=== PATIENT | male | born 1945 | race Caucasian/White ===

== ENCOUNTER → 2016-07-22 08:03 | Day surgery (SDC) | payer MEDICARE ==
--- NOTE | 2016-07-20 20:46 | HP ---
ADMITTING HISTORY AND PHYSICAL: DATE OF ADMISSION: 07/22/16 AGE: 70 years. SEX: Male. ADMITTING DIAGNOSES: 1. Bilateral hydronephrosis. 2. Advanced prostate cancer. PLANNED PROCEDURE: Bilateral retrograde, bilateral stent change. SURGEON: Isidro Cevallos MD ADMITTING HISTORY AND PHYSICAL: Landon Montilla is a 70-year-old gentleman with long - standing history of advanced prostate cancer. He had undergone radical prostatectomy in 2003 followed by radiation therapy in 2004 and has been on intermittent androgen deprivation therapy with Lupron for the last few years. His most recent serum PSA in May 2016 was 0.4. He also has bilateral hydronephrosis due to strictures secondary to radiation and has been managed with indwelling ureteral stents. PAST MEDICAL HISTORY: Significant for: 1. Diabetes. 2. Prostate cancer. 3. Atrial fibrillation. 4. Hypertension. MEDICATIONS ON ADMISSION: 1. Glipizide 5 mg q.a.m., 10 mg q.p.m. 2. Diltiazem 240 mg a day. 3. Losartan potassium 50 mg daily. 4. Atorvastatin 40 mg daily. 5. Humulin as directed. 6. Warfarin, currently on hold. 7. Omeprazole 20 mg daily. 8. Trazodone 50 mg daily. ALLERGIES AND INTOLERANCES: LISINOPRIL, ZESTORETIC, and INDAPAMIDE. SMOKING HISTORY: He has a lifelong smoking history, 40 to 45 pack years. PHYSICAL EXAMINATION GENERAL: Exam reveals a pleasant elderly gentleman. VITAL SIGNS: Blood pressure is 124/72, pulse 77 per minute, and oxygen saturation 97% on room air. LUNGS: Clear bilaterally. CARDIOVASCULAR: Regular rate and rhythm. S1, S2. ABDOMEN: Soft without masses. A Burgess catheter is in place draining clear urine. IMPRESSION: A 70-year-old gentleman with bilateral hydronephrosis. PLANNED PROCEDURE: Bilateral retrograde and bilateral stent change. CC: Amando Stein MD; Dr. Oliva* [id number]/[facility] #: [id number] [facility]
[~2016-07-22 08:03] MED LIST: Buffered Lidocaine 1% SYR 3ML* 3 ML/SYR SYRINGE INTRADERM ONE; Buffered Lidocaine 1% SYR 3ML* 3 ML/SYR SYRINGE ONE; Dexamethasone IV* 4 MG/ML 1 ML (4 MG) ONE; Famotidine TAB* 20 MG ONE; Famotidine TAB* 20 MG PO ONE; Gentamicin ADULT (*) 140 MG in NS 0.9% 100 ML* 100 ML IVPB ONE; HYDROmorphone INJ* 1 MG/ML CARPUJECT SYRINGE IV PRN; Iohexol 180 (CONTRAST) 10 ML SDV IV ONE; KETAMINE HCL* 50 MG/ML 10 ML VIAL ONE; Lidocaine 2% MPF* 2 ML VIAL ONE; Metoclopramide TAB* 10 MG ONE; Metoclopramide TAB* 10 MG PO ONE; Midazolam* 1 MG/ML 5 ML VIAL (5 MG) ONE; Ondansetron INJ* 2 MG/ML VIAL IV PRN; Ondansetron INJ* 2 MG/ML VIAL ONE; Propofol* 10 MG/ML 20 ML BTL IV PUSH ONE; Scopolamine 1.5 mg* PATCH ONE; Scopolamine 1.5 mg* PATCH TRANSDERM ONE; Scopolamine PATCH Remove* 1 NOTE MISC PATCH OFF ONE; cefTRIAXone(*) 2 GM ADDV.VIAL IVPB ONE; fentaNYL* 50 MCG/ML 2 ML VIAL (100 MCG VIAL) IV PRN; fentaNYL* 50 MCG/ML 2 ML VIAL (100 MCG VIAL) ONE; oxyCODONE/Acetamin 5/325 MG* TAB PO PRN
[2016-07-22 11:43] VITALS: BP 150/78
--- NOTE | 2016-07-22 11:59 | RAD ---
CPT II Codes: 6045F INDICATION: Bilateral ureteral stent exchanges. Fluoroscopic services provided for referring physician. 5 spot images demonstrates bilateral hydronephrosis with exchange of bilateral ureteral stents. IMPRESSION: Fluoroscopic services provided for referring physician for bilateral ureteral stent placement.
--- NOTE | 2016-07-22 20:39 | OP ---
DATE OF OPERATION: 07/22/16 - [facility] DATE OF : [birth year] - AGE: 70 years, male. SURGEON: Isidro Cevallos MD. ANESTHESIOLOGIST: Dr. Mcgowan. ANESTHESIA: General. PRE-OP DIAGNOSES: 1. Bilateral hydronephrosis. 2. Prostate cancer. POST-OP DIAGNOSES: 1. Bilateral hydronephrosis. 2. Prostate cancer. SURGICAL PROCEDURE: Cystoscopy, bilateral retrogrades, bilateral ureteral stent change. COMPLICATIONS: None. STENT USED: An 8.5-Fijian 28-cm silicone stent right and left ureter. OPERATIVE FINDINGS: 1. Strictures proximal urethra. 2. Bilateral hydronephrosis. POSTOPERATIVE CONDITION: Stable. INDICATIONS: Landon Montilla is a 70-year-old gentleman with advanced prostate cancer and bilateral hydronephrosis managed with indwelling ureteral stents. These were last changed in December 2015. DESCRIPTION OF PROCEDURE: After induction of general anesthesia, the patient was placed in dorsal lithotomy position. Sequential compression devices were in place and functioning. Initial cystoscopy revealed stricture in the proximal urethra. The patient is status post radical prostatectomy. The bladder was examined. The previously placed stents were removed. Left retrograde pyelogram revealed fullness of the left collecting system. A new 8.5-Fijian 28 cm silicone stent was positioned under fluoroscopic monitoring with good proximal and distal positioning obtained. Attention was directed to the right side. Once again after completion of the retrograde pyelogram, a new 8.5-Fijian 28 cm silicone stent was placed. A 20- Fijian Burgess was placed for bladder drainage. The patient tolerated the procedure satisfactorily and was transferred back to the recovery area in stable condition. [id number]/[facility] #: [id number] MTDD
== END | disposition home or self-care (01) ==
LOC: OR 08:03
PROVIDERS: ATTEND Urology
DX: N13.1 Hydronephrosis with ureteral stricture, not elsewhere classified (principal); C61 Malignant neoplasm of prostate; N13.9 Obstructive and reflux uropathy, unspecified; E11.8 Type 2 diabetes mellitus with unspecified complications; Z79.4 Long term (current) use of insulin; I48.91 Unspecified atrial fibrillation; Z79.01 Long term (current) use of anticoagulants; I10 Essential (primary) hypertension
CPT/HCPCS: 36415; 74420; 85610; A9270-GY; J0696; J1100; J1580; J2250; J2405; J2704; J3010

== ENCOUNTER 2016-09-29 09:45 | Emergency (ER) | payer MEDICARE ==
[2016-09-29] MEDS ORDERED: Morphine INJ* 4 MG/ML 1 ML SYRINGE IV ONE ×3 (10:38→15:26)
[2016-09-29] MEDS ORDERED: NS 0.9% 1000 ML* 1,000 ML IV ONE (10:38)
[2016-09-29 10:51] LABS: Hematocrit 24 % (42-52); Hemoglobin 7.5 g/dl (14.0-18.0); Mean Corpuscular HGB Conc 32 g/dl (31-36); Mean Corpuscular Hemoglobin 25 pg (27-31); Mean Corpuscular Volume 78 fL (80-94); Mean Platelet Volume 7 um3 (7.4-10.4); Red Blood Count 3.03 10^6/ul (4.0-5.4); Red Cell Distribution Width 17 % (10.5-15); White Blood Count 17.8 10^3/ul (3.5-10.8)
[2016-09-29 11:04] LABS: Albumin 3.1 g/dL (3.2-5.2); C Reactive Protein 150.64 mg/L (< 5.00); Calcium 8.7 mg/dL (8.6-10.3); EGFR African American 33.8 (>60); EGFR Non-African American 26.3 (>60); Globulin 4.7 g/dL (2-4); Potassium 4.2 mmol/L (3.5-5.0); Total Bilirubin 0.4 mg/dL (0.2-1.0); Total Protein 7.8 g/dL (6.4-8.9)
[2016-09-29 12:01] LABS: Erythrocyte Sed Rate 120 mm/Hr (0-40)
[2016-09-29 12:36] LABS: Urine Bacteria Absent (Absent); Urine Bilirubin Negative (Negative); Urine Glucose Negative (Negative); Urine Nitrite Negative (Negative)
[2016-09-29] MEDS ORDERED: Piperac/Tazob 3.375 gm in NS* 3.375 GM/100 ML BAG IVPB ONE (12:36)
[2016-09-29] MEDS ORDERED: Vancomycin(*) 1,000 MG in NS 0.9% 250 ML* 250 ML IVPB ONE (13:48)
--- NOTE | 2016-09-29 13:59 | RAD ---
INDICATION: Evaluate for inguinal hernia. Pain. COMPARISON: CT June 20, 2011 TECHNIQUE: Axial source images were acquired from the level hemidiaphragms to the symphysis pubis. The examination was performed following the administration of oral contrast only. Lung bases: The lung bases are clear. The heart is enlarged Liver: There is mild hepatomegaly. There is no massive noncontrast evaluation. Gallbladder: There are no calcified gallstones. There is no evidence of wall thickening or pericholecystic fluid.. Spleen: The spleen is normal in size. The noncontrast CT appearance is normal. Pancreas: Noncontrast imaging shows no pancreatic mass or ductal dilitation. Adrenal glands: No masses are identified. Kidneys/Bladder: No evidence of nephrolithiasis. Small right renal cysts. Atrophic left kidney. Bilateral renal stents. No hydronephrosis. The bladder is decompressed with a Burgess catheter. There are perivesical abnormalities and to see below) Adenopathy: There is no evidence of intraperitoneal or retroperitoneal adenopathy. Evaluation is limited without oral contrast. Fluid collections: There are no free or localized fluid collections. Vessels: The aorta and iliac vessels are normal in caliber. There are no significant atherosclerotic changes. The IVC appears normal Pelvic organs: There is prostatectomy. There are multiple surgical clips. GI tract: Evaluation of the bowel is limited without oral contrast. The stomach, small bowel, and lower GI tract appear grossly normal. There are no obstructive findings. The appendix is visualized and appears normal. Soft tissues: There is expansion of the right rectus muscle near the insertion on the symphysis and there are punctate foci of air. There is mild stranding of the subcutaneous fat as well. This rectus abnormality is contiguous with abnormal soft tissue in the anterior pelvic peritoneal cavity at the level of the symphysis. This extends posteriorly to the decompressed urinary bladder. There are multiple tiny foci of air within this soft tissue density. This is likely infectious or inflammatory. It is possible there is a rent in the anterior bladder wall. There are fat-containing inguinal hernias bilaterally. Osseous structures: There are no acute osseous findings. There is multilevel spondylitic change. IMPRESSION: CONTIGUOUS ABNORMAL SOFT TISSUE DENSITY WITH PUNCTATE FOCI OF AIR INVOLVING THE RIGHT RECTUS MUSCLE AT ITS INSERTION ON THE SYMPHYSIS PUBIS. THE ABNORMAL SOFT TISSUE DENSITY WITH ADDITIONAL PUNCTATE FOCI OF AIR EXTENDS POSTERIORLY INTO THE PELVIC PERITONEAL CAVITY AND IS CONTIGUOUS WITH THE BLADDER. THE FINDINGS ARE LIKELY INFECTIOUS/INFLAMMATORY AND MAY INVOLVE A DEFECT IN THE BLADDER ITSELF. THERE MAY BE OSTEITIS OF THE SYMPHYSIS PUBIS AND/OR AN ABSCESS OF THE RECTUS MUSCULATURE.
[2016-09-29] MEDS: NS 0.9% 1000 ML* 2,500 ML IV ONE ×3 (15:43→18:11)
[2016-09-29] MEDS ORDERED: Acetaminop/Codeine 30 MG TAB* 1 TAB (300 MG/30 MG) PO PRN ×2 (17:09→17:13)
[2016-09-29] MEDS ORDERED: traZODone TAB* 50 MG TAB PO PRN (17:09)
[2016-09-29] MEDS ORDERED: PROCHLORPERAZINE INJ 5 MG/ML 2 ML VIAL IV PRN (17:16)
[2016-09-29] MEDS ORDERED: Morphine INJ* 4 MG/ML 1 ML SYRINGE IV PRN (17:16)
[2016-09-29] MEDS ORDERED: NS 0.9% 1000 ML* 1,000 ML IV SCH (17:30)
[2016-09-29] MEDS ORDERED: Phytonadione Oral Solution* 5 MG/25 ML UDC PO ONE (17:46)
[2016-09-29] MEDS ORDERED: Vancomycin(*) 1,000 MG in NS 0.9% 250 ML* 250 ML IVPB SCH ×4 (18:00)
[2016-09-29] MEDS ORDERED: Vancomycin per Pharmacy* NOTE FOLLOW UP PRN (19:21)
[2016-09-29] MEDS ORDERED: Piperac/Tazob 3.375 gm in NS* 3.375 GM/100 ML BAG IVPB SCH (20:00)
--- NOTE | 2016-09-29 20:10 | ED ---
Queenie Fagan Salem, scribed for Serafin Rai MD on 09/29/16 at 1041 . Abdominal Pain/Male - HPI Summary HPI Summary: Patient is a 70 y/o male who presents to the ED with 05/12 inguinal pain. His states that he was referred to the ED by Dr. Cevallos earlier today. He states he recently fell and 3 days after the fall he began to experience groin pain. He reports uncontrollable diarrhea unchanged from baseline. Pt denies CP or SOB, bur reports pain is aggravated with movement. - History of Current Complaint Chief Complaint: EDAbdPain Stated Complaint: GROIN PAIN Time Seen by Provider: 09/29/16 10:07 Hx Obtained From: Patient, Family/Circulation Clerk - . Onset/Duration: Gradual Onset, Still Present Timing: Constant Severity Initially: Moderate Severity Currently: Moderate Pain Intensity: 8 Pain Scale Used: 0-10 Numeric Location: Other - Inguinal. Aggravating Factor(s): Movement Alleviating Factor(s): Position Associated Signs And Symptoms: Positive: Diarrhea - unchanged from baseline. - Allergies/Home Medications Allergies/Adverse Reactions: Allergies Allergy/AdvReac Type Severity Reaction Status Date / Time No Known Allergies Allergy Verified 07/22/16 08:23 Home Medications: Home Medications Acetaminop/Codeine 30 MG TAB* [Tylenol/Codeine 30 MG TAB*] 1 - 2 tab PO Q6H PRN MDD 8 tabs 09/29/16 [History Confirmed 09/29/16] Atorvastatin* [Lipitor*] 40 mg PO DAILY 09/29/16 [History Confirmed 09/29/16] Chlorthalidone 25 mg PO DAILY 09/29/16 [History Confirmed 09/29/16] Cholecalciferol [Vitamin D] 2,000 unit PO DAILY 09/29/16 [History Confirmed ] Diltiazem CD CAP* [Cardizem CD CAP*] 240 mg PO DAILY 09/29/16 [History Confirmed 09/29/16] Insulin Lispro [Humalog Kwikpen] 14 unit SUBCUT BEDTIME 09/29/16 [History Confirmed 09/29/16] Warfarin TAB(*) [Coumadin TAB(*)] 5 mg PO MOWEFR 09/29/16 [History Confirmed ] Warfarin TAB(*) [Coumadin TAB(*)] 7.5 mg PO SUTUTHSA 09/29/16 [History Confirmed 09/29/16] traZODone TAB* [Desyrel TAB*] 50 mg PO BEDTIME PRN 09/29/16 [History Confirmed 09/29/16] PMH/Surg Hx/FS Hx/Imm Hx Endocrine/Hematology History: Reports: Hx Diabetes - IDDM, Hx Anemia - HX OF Denies: Hx Anticoagulant Therapy, Hx Sickle Cell Disease Cardiovascular History: Reports: Hx Hypertension - DAILY MEDS, Other Cardiovascular Problems/Disorders - HX OF A-FIB Denies: Hx Pacemaker/ICD Respiratory History: Denies: Hx Sleep Apnea, Other Respiratory Problems/Disorders GI History: Reports: Hx Gastroesophageal Reflux Disease Denies: Hx Jaundice, Other GI Disorders History: Reports: Hx Kidney Infection, Hx Kidney Stones, Hx Renal Disease, Other Problems/Disorders - INDWELLING CATHETER, STENT RIGHT & LEFT URETER, HX OF PROSTATE CANCER Musculoskeletal History: Reports: Hx Arthritis - GENERAL Denies: Other Musculoskeletal History Sensory History: Reports: Hx Cataracts - HX OF, Hx Contacts or Glasses - GLASSES Denies: Hx Hearing Aid Opthamlomology History: Reports: Hx Cataracts - HX OF, Hx Contacts or Glasses - GLASSES Neurological History: Denies: Other Neuro Impairments/Disorders Psychiatric History: Reports: Hx Depression Denies: Hx Panic Disorder - Cancer History Cancer Type, Location and Year: COLON CANCER 2008 Hx Chemotherapy: No - Surgical History Surgery Procedure, Year, and Place: [id number] MULTIPLE BILATERAL RETROGRADE WITH CATHETER AND BILATERL URETERAL STENT EXCHANGES, BALLOON DILATION, [facility] [place]. 2013 BILATERAL CATARACT EXTRACTION WITH IOL IMPLANTS, [facility] [place]. 2012 C7-T1 ACDF AND PLATING, [facility] [place]. 2016 DECOMPRESSION LAMINECTOMY L3-4, 4-5, [facility] [place] Hx Anesthesia Reactions: Yes - NAUSEA AND VOMITING - NEEDS PATCH Infectious Disease History: No Infectious Disease History: Denies: Traveled Outside the [place] in Last 30 Days - Family History Known Family History: Positive: Diabetes - Mother. - Social History Alcohol Use: None Substance Use Type: Reports: None Smoking Status (MU): Former Smoker Type: Cigarettes Amount Used/How Often: 3 PACKS A DAY Have You Smoked in the Last Year: No Review of Systems Negative: Fever, Chills Negative: Erythema Negative: Sore Throat Negative: Chest Pain Negative: Shortness Of Breath, Cough Positive: Diarrhea - unchanged from baseline. . Negative: Abdominal Pain, Nausea Positive: other - Inguinal pain. . Negative: dysuria, hematuria Negative: Rash Neurological: Other - No dizziness. All Other Systems Reviewed And Are Negative: Yes Physical Exam - Summary Physical Exam Summary: Constitutional: Well-developed, Well-nourished, Alert. (-) Distressed Skin: Warm, Dry HENT: Normocephalic; Atraumatic Eyes: Conjunctiva normal Neck: Musculoskeletal ROM normal neck. (-) JVD, (-) Stridor, (-) Tracheal deviation Cardio: Rhythm regular, rate normal, Heart sounds normal; Intact distal pulses; The pedal pulses are 2+ and symmetric. Radial pulses are 2+ and symmetric. (-) Murmur Pulmonary/Chest wall: Effort normal. (-) Respiratory distress, (-) Wheezes, (-) Rales Abd: Soft, (-) Distension, (-) Guarding, (-) Rebound. Right inguinal tenderness. No testicular tenderness. No palpable hernia. Pain in groin with passive range of motion of right hip. No hip tenderness. Musculoskeletal: (-) Edema Lymph: (-) Cervical adenopathy Neuro: Alert, Oriented x3 Psych: Mood and affect Normal Triage Information Reviewed: Yes Vital Signs On Initial Exam: Initial Vitals Temp Pulse Resp BP Pulse Ox 97.1 F 72 18 154/64 100 09/29/16 09:46 09/29/16 09:46 09/29/16 09:46 09/29/16 09:46 09/29/16 09:46 Vital Signs Reviewed: Yes Diagnostics - Vital Signs Vital Signs Temp Pulse Resp BP Pulse Ox 09/29/16 10:31 72 18 139/64 96 09/29/16 09:46 97.1 F 72 18 154/64 100 - Laboratory Result Diagrams: 09/29/16 10:30 09/29/16 10:30 Lab Statement: Any lab studies that have been ordered have been reviewed, and results considered in the medical decision making process. - CT ABD/PELVIS CT Interpretation Completed By: Radiologist - IMPRESSION: CONTIGUOUS ABNORMAL SOFT TISSUE DENSITY WITH PUNCTATE FOCI OF AIR INVOLVING THE RIGHT RECTUS MUSCLE AT ITS INSERTION ON THE SYMPHYSIS PUBIS. THE ABNORMAL SOFT TISSUE DENSITY WITH ADDITIONAL PUNCTATE FOCI OF AIR EXTENDS POSTERIORLY INTO THE PELVIC PERITONEAL CAVITY AND IS CONTIGUOUS WITH THE BLADDER. THE FINDINGS ARE LIKELY INFECTIOUS/ INFLAMMATORY AND MAY INVOLVE A DEFECT IN THE BLADDER ITSELF. THERE MAY BE OSTEITIS OF THE SYMPHYSIS PUBIS AND/OR AN ABSCESS OF THE RECTUS MUSCULATURE. Re-Evaluation - Re-Evaluation First Eval Re-Evaluation Time: 13:28 Comment: Pain is well controlled. Second Eval Re-Evaluation Time: 14:46 Comment: Unchanged. Updated family. Abdominal Pain Fem Course/Dx - Course Course Of Treatment: Pt c/o inguinal pain. He was given IV fluids and Vancomycin in the ED. CT ordered, and reviewed as read by radiologist. Consulted urology, surgery, and pt's PCP. Requested that Dr. Mcelroy evaluates pt. He has agreed to do so if hospitalist requests it. Discussed with Dr. Nathan at [facility]. He will accept the pt. - Diagnoses Provider Diagnoses: Sepsis, Osteomyelitis, Pelvic abscess - Provider Notifications Discussed Care Of Patient With: Dr. Cevallos (Urologist) @ 1439. He recommended surgical and interventionalist radiology consultation. Dr. Mcelroy (Surgery) @ 1402. He believes no surgery is necessary. He is available for consultation from hospitalist as needed. Dr. Stein (pts PCP) @ 1520. He requested hospitalist do the admission. Also, mentioned pt had osteomyelitis in the past. Dr. Bronson (Hospitalist) @ 1545. Will admit. She understands Dr. Mcelroy will evualate pt upon request. Dr. Cevallos called @ 1628 to check on the pt. Dr. Nathan (hospitalist at [facility]) @ 1740. Discussed pts imaging, vital signs, and assessment. Will accept transfer. Reason For Transfer: Specialty or service not available at [facility] [place]. - Interventional radiology. - Critical Care Time Critical Care Time: 75-104 min - 90 minutes. Discharge - Discharge Plan Condition: Stable Disposition: TRANS HIGHER L OF CARE FAC Sepsis Re-assessment - Sepsis Re-Assessment First Eval Re-Evaluation Time: 14:46 - Pt is stable. Patient's Vitals Signs: Vital Signs Temp Pulse Resp BP Pulse Ox 09/29/16 15:43 18 09/29/16 15:00 66 156/61 96 09/29/16 14:00 64 143/56 94 09/29/16 13:18 61 141/56 97 09/29/16 13:16 20 09/29/16 13:00 65 136/57 96 09/29/16 12:30 65 139/61 96 09/29/16 12:00 62 137/59 95 09/29/16 11:30 61 144/59 96 09/29/16 11:00 65 143/59 96 09/29/16 10:49 66 96 09/29/16 10:48 18 149/59 09/29/16 10:31 72 18 139/64 96 09/29/16 09:46 97.1 F 72 18 154/64 100 Second Eval Patient's Vitals Signs: Vital Signs Temp Pulse Resp BP Pulse Ox 09/29/16 15:43 18 09/29/16 15:00 66 156/61 96 09/29/16 14:00 64 143/56 94 09/29/16 13:18 61 141/56 97 09/29/16 13:16 20 09/29/16 13:00 65 136/57 96 09/29/16 12:30 65 139/61 96 09/29/16 12:00 62 137/59 95 09/29/16 11:30 61 144/59 96 09/29/16 11:00 65 143/59 96 09/29/16 10:49 66 96 09/29/16 10:48 18 149/59 09/29/16 10:31 72 18 139/64 96 09/29/16 09:46 97.1 F 72 18 154/64 100 The documentation as recorded by the Queenie de la fuente Salem accurately reflects the service I personally performed and the decisions made by Fredi gunderson Jerry, MD.
[2016-09-29 20:21] VITALS: BP 164/64
--- NOTE | 2016-09-29 21:38 | CONS ---
CONSULTATION REPORT: DATE OF CONSULT: 09/29/16 - EMERGENCY DEPT TIME OF EVALUATION: 5 p.m. PRIMARY CARE PROVIDER: Dr. Amando Stein. UROLOGIST: Dr. Cevallos. CHIEF COMPLAINT: Right groin pain. HISTORY OF PRESENT ILLNESS: Mr. Montilla is a 70-year-old male with a past medical history of type 2 diabetes; prostate CA; atrial fibrillation, on Coumadin; hypertension; CKD, stage 3; hyperlipidemia; nephrolithiasis; status post bilateral ureteral stents in July 2016; L3-L5 laminectomy in May 2016, who was referred to the emergency room with right groin pain. His history goes back to 3 weeks ago when he slipped and fell the last 2 stairs when he was going down. He says that he started to have right groin pain and he saw Dr. Stein as an outpatient, had an x-ray as an outpatient that the patient states was negative, but the pain continued and progressed to the point that he was having difficulty walking. He also complains of chills, but denies fevers. He saw Dr. Cevallos as an outpatient today to have his chronic Burgess catheter changed and Dr. Cevallos was concerned with his presentation and referred him to the emergency room for further evaluation. PAST MEDICAL HISTORY: 1. Type 2 diabetes. 2. Prostate CA. 3. Atrial fibrillation, on anticoagulation with warfarin. 4. Hypertension. 5. CKD, stage 3. 6. Hyperlipidemia. 7. Nephrolithiasis. 8. Bilateral ureteral stents in July 2016. 9. Status post L3-L5 laminectomy in May 2016. MEDICATION LIST: 1. Acetaminophen/codeine mg 1 to 2 tablets p.o. q.6 hours p.r.n. pain, MDD 8 tablets. 2. Vitamin C 500 mg p.o. daily. 3. Atorvastatin 40 mg p.o. daily. 4. Chlorthalidone 25 mg p.o. daily. 5. Cholecalciferol 2000 units p.o. daily. 6. Diltiazem CD 240 mg p.o. daily. 7. Glipizide 10 mg p.o. b.i.d. 8. Lispro 14 units subcutaneously at bedtime. 9. Omeprazole 20 mg p.o. daily. 10. Trazodone 50 mg p.o. at bedtime as needed for insomnia. 11. Warfarin 5 mg on Mondays, Wednesdays, and Fridays; 7.5 mg on Sundays, Tuesdays, , and Saturdays. ALLERGIES: No known drug allergies. FAMILY HISTORY: Significant for history of diabetes. SOCIAL HISTORY: The patient was a smoker, 3 packs per day for 10 years and he quit 25 years ago. No history of alcohol or drug use. Surrogate decision maker is his , Talita Montilla, phone number is [phone]. REVIEW OF SYSTEMS: A 14-point review of systems was performed and all the pertinent positive and negative findings are in the HPI. PHYSICAL EXAM: Vital Signs: Temperature 97.1, heart rate is 67, respiratory rate is 18, oxygen saturation ____ on 2 L nasal cannula, blood pressure is 153/ 62. General: The patient is an elderly male, lying in the ER stretcher, in no acute distress. HEENT: Pupils are equal. Moist mucous membranes, but they are pale. CVS: Normal S1, S2. Regular rate and rhythm. Chest: Breath sounds present bilaterally with no added sounds. Abdomen is obese, soft, nontender, nondistended. Bowel sounds are present. He has tenderness on palpation of his right inguinal area extending to the suprapubic area. There is no erythema, no fluctuance, no crepitation, but the area is very tender to palpation. He has no pain on palpation of his inner thigh and also extending to his perineum or genitals. Extremities: No edema. Neuro: He is alert and oriented x3. Able to move all 4 extremities. DIAGNOSTIC STUDIES/LAB DATA: The patient had a CBC that showed a WBC of 17.8, hemoglobin of 7.5, hematocrit of 24, platelets of 629 with 90% neutrophils, ESR is 120. INR was 6.8. Chemistry showed a sodium of 131, potassium 4.2, chloride of 96, bicarb of 23, BUN of 56, creatinine of 2.4, glucose of 322, lactic acid of 1.2, calcium 8.7. LFTs are normal. Alk phos is 114. CRP is 150. Urinalysis showed 2+ blood, 3+ LE, 3+ wbc's. CT of the abdomen and pelvis without contrast showed a contiguous abnormal soft tissue density with punctate foci of air involving the right rectus muscle at its insertion on the symphysis pubis. The abnormal soft tissue density with additional punctate foci of air extends posteriorly into the pelvic peritoneal cavity and is contiguous with the bladder. The findings are likely infectious/ inflammatory and may involve a defect in the bladder itself. There may be osteitis of the symphysis pubis and/or an abscess of the rectus musculature. ASSESSMENT AND PLAN: Mr. Montilla is a 70-year-old male with a past medical history of type 2 diabetes; prostate carcinoma; atrial fibrillation; hypertension; chronic kidney disease, stage 3; hyperlipidemia; nephrolithiasis, who presents to the emergency room with complaints of right groin pain after sustaining a fall 3 weeks ago, found to have a fluid collection in the pelvic area of unclear etiology at this time. 1. Sepsis: The patient has leukocytosis and although he does not meet the sepsis criteria at this time, I do suspect he is infected and I believe the source is the pelvic abscess. 2. Pelvic abscess: Etiology is unclear. I believe he may have started with a hematoma when he sustained a fall 3 weeks ago as his hemoglobin has dropped from 9.4 in May to 7.5 today. This may have progressed with an infection and may now be an abscess, but it is unclear if this has any communication with the bladder or any other intra-abdominal process. Due to his renal function, the patient cannot have a contrasted study. The initial idea was to have the patient admitted to the intensive care unit, reverse his INR, and then have Interventional Radiology put a catheter to drain this collection tomorrow, but after discussing the case with his primary care provider, Dr. Stein, and with his urologist, Dr. Cevallos, decision was made to transfer the patient [facility] to a facility with interventional radiology capacity overnight. Dr. Cevallos knows the patient for more than 15 years and he is very concerned about his condition. This is my first interaction with the patient and to me, he appears to be stable , but I do respect Dr. Cevallos's opinion especially because he has known the patient for a long time and he feels that this procedure could not wait until morning. The emergency room provider (Dr. Rai) will arrange the transfer to [facility]. In the meantime, the patient should receive IV fluids , and vancomycin and Zosyn are already ordered. 3. Supratherapeutic INR: The patient's warfarin is on hold and when he is transferred, he should receive FFP. I am not going to order it now as this can cause fluid overload and I am not sure of what kind of procedure and timing of procedure he will have when transferred. So, I will defer the FFP infusion to the accepting service, but he will receive 1 dose of vitamin K 5 mg before he is discharged. 4. Anemia: Suspect this is acute blood loss anemia secondary to a trauma. I had ordered 1 unit of PRBC to be transfused, but this may not be possible and it can be pursued in the accepting facility as his heart rate and blood pressure are stable at this time. 5. Thrombocytosis: Suspect this is associated with his inflammatory process, especially considering that his ESR is 120 and his CRP is 150. TIME SPENT: Approximately 65 minutes was spent with the patient and family interview, medical records review, physical examination to complete this admission, more than half this time was spent [id number] with the patient in coordination of care. [id number]/[facility]PS #: [id number]
[2016-09-30] MEDS ORDERED: Atorvastatin* 40 MG TAB PO SCH (09:00)
[2016-09-30] MEDS ORDERED: Cholecalciferol TAB* 1000 UNITS PO SCH (09:00)
[2016-09-30] MEDS ORDERED: Omeprazole CAP* 20 MG PO SCH (09:00)
[2016-09-30] MEDS ORDERED: Ascorbic Acid TAB* 500 MG PO SCH (09:00)
[2016-09-30] MEDS ORDERED: Diltiazem CD CAP* 240 MG PO SCH (09:00)
== END 2016-09-29 20:23 | disposition short-term general hospital (02) ==
LOC: ED 09:45
DX: A41.9 Sepsis, unspecified organism (principal); M86.9 Osteomyelitis, unspecified; R10.2 Pelvic and perineal pain; R19.7 Diarrhea, unspecified; Z87.891 Personal history of nicotine dependence
CPT/HCPCS: 36415; 74176; 80053; 81003; 81015; 83605; 83690; 85025; 85610; 85652; 86140; 86850; 86900; 86901; 86922; 86927; 87086; 96374; 96376; 99285; J2270; J2543; J3370; P9016; P9017

== ENCOUNTER 2016-11-11 06:11 | Day surgery (SDC) | payer MEDICARE ==
--- NOTE | 2016-11-08 23:36 | HP ---
ADMITTING HISTORY AND PHYSICAL: DATE OF ADMISSION: 11/11/16 AGE: 70 years, male. ADMITTING DIAGNOSES: 1. Advanced prostate cancer. 2. Bilateral hydronephrosis. PLANNED PROCEDURE: Cystoscopy, bilateral retrogrades, bilateral ureteral stent change. SURGEON: Isidro Cevallos MD ADMITTING HISTORY AND PHYSICAL: Landon Montilla is a 70-year-old gentleman with multiple medical issues and a fairly complex urologic history consisting of advanced prostate cancer and bilateral hydronephrosis. He has been managed with indwelling stents, which were last changed in July of 2016 and he is now being brought in for bilateral stent change. PAST MEDICAL HISTORY: Significant for: 1. Type 2 diabetes. 2. Atrial fibrillation, on anticoagulation. 3. Prostate cancer. 4. Hypertension. 5. Hyperlipidemia. 6. Chronic renal insufficiency. 7. Status post L3, L4, L5 laminectomy in May of 2016. MEDICATIONS ON ADMISSION: 1. Atorvastatin 40 mg daily. 2. Humulin as directed. 3. Glipizide 10 mg daily. 4. Omeprazole 20 mg daily. 5. Cartia XT 240 mg daily. 6. Warfarin 5 mg daily. 7. Chlorthalidone 25 mg daily. 8. Trazodone 50 mg daily. ALLERGIES: No known drug allergies. PHYSICAL EXAMINATION GENERAL: Reveals a pleasant elderly gentleman, who is in some discomfort after a recent fall secondary to some soft tissue bruising in the area of the left hip. VITAL SIGNS: Blood pressure is 138/62, pulse 85 per minute, oxygen saturation 99% on room air. LUNGS: Clear bilaterally. CARDIOVASCULAR: S1, S2. No murmurs. ABDOMEN: Soft. He recently had a drain placed for an infection involving the area around the rectus muscle. There was initially some concern that this was communicating with the bladder, but there has been no evidence of fistula either on a cystogram or on cystoscopy. The collection was drained and the drain was subsequently removed. IMPRESSION: A 70-year-old gentleman with a fairly complex medical and urologic history, who is being brought in for bilateral ureteral stent change. CC: Dr. Amando Stein * [id number]/[facility] #: [id number] MTDD
[~2016-11-11 06:11] MED LIST changes: -Buffered Lidocaine 1% SYR 3ML* 3 ML/SYR SYRINGE ONE; -Dexamethasone IV* 4 MG/ML 1 ML (4 MG) ONE; +Famotidine IV* 10 MG/ML 2 ML (20 mg) IV SLOW PU ONE; +Famotidine IV* 10 MG/ML 2 ML (20 mg) ONE; -Famotidine TAB* 20 MG ONE; -Famotidine TAB* 20 MG PO ONE; -Gentamicin ADULT (*) 140 MG in NS 0.9% 100 ML* 100 ML IVPB ONE; -HYDROmorphone INJ* 1 MG/ML CARPUJECT SYRINGE IV PRN; -Iohexol 180 (CONTRAST) 10 ML SDV IV ONE; -KETAMINE HCL* 50 MG/ML 10 ML VIAL ONE; -Lidocaine 2% MPF* 2 ML VIAL ONE; -Metoclopramide TAB* 10 MG ONE; -Metoclopramide TAB* 10 MG PO ONE; -Midazolam* 1 MG/ML 5 ML VIAL (5 MG) ONE; -Ondansetron INJ* 2 MG/ML VIAL IV PRN; -Ondansetron INJ* 2 MG/ML VIAL ONE; -Propofol* 10 MG/ML 20 ML BTL IV PUSH ONE; -Scopolamine 1.5 mg* PATCH ONE; -Scopolamine 1.5 mg* PATCH TRANSDERM ONE; -Scopolamine PATCH Remove* 1 NOTE MISC PATCH OFF ONE; -fentaNYL* 50 MCG/ML 2 ML VIAL (100 MCG VIAL) IV PRN; -fentaNYL* 50 MCG/ML 2 ML VIAL (100 MCG VIAL) ONE; -oxyCODONE/Acetamin 5/325 MG* TAB PO PRN
[2016-11-11] MEDS ORDERED: Iohexol 180 (CONTRAST) 10 ML SDV IV ONE (07:24)
[2016-11-11] MEDS ORDERED: Midazolam* 1 MG/ML 5 ML VIAL (5 MG) ONE (07:26)
[2016-11-11] MEDS ORDERED: fentaNYL* 50 MCG/ML 2 ML VIAL (100 MCG VIAL) ONE (07:26)
[2016-11-11] MEDS ORDERED: Ondansetron INJ* 2 MG/ML VIAL ONE (07:27)
[2016-11-11] MEDS ORDERED: Lidocaine 2% PF * 5 ML VIAL ONE (07:27)
[2016-11-11] MEDS ORDERED: Ketorolac INJ* 30 MG/ML 1 ML VIAL ONE (07:27)
[2016-11-11] MEDS ORDERED: Propofol* 10 MG/ML 20 ML BTL IV PUSH ONE (07:27)
[2016-11-11] MEDS ORDERED: Dexamethasone IV* 4 MG/ML 1 ML (4 MG) ONE (07:27)
[2016-11-11] MEDS ORDERED: oxyCODONE TAB* 5 MG TAB PO PRN (07:41)
[2016-11-11] MEDS ORDERED: HYDROmorphone* 1 MG/ML 1 ML SYR IV PRN (07:41)
[2016-11-11] MEDS ORDERED: DiMENhydriNATE IV* 50 MG/ML VIAL IV PUSH PRN (07:41)
[2016-11-11] MEDS ORDERED: Acetaminophen TAB* 325 MG PO PRN (07:41)
[2016-11-11] MEDS ORDERED: Scopolamine 1.5 mg* PATCH ONE (07:44)
[2016-11-11] MEDS ORDERED: Scopolamine 1.5 mg* PATCH TRANSDERM SCH (08:00)
[2016-11-11] MEDS ORDERED: Furosemide IV* 10 MG/ML 2 ML VIAL (20 MG) ONE (08:35)
--- NOTE | 2016-11-11 09:11 | RAD ---
INDICATION: Bilateral retrograde ureteral stent exchange. COMPARISON: Correlation is made with prior CT of the abdomen and pelvis from September 29, 2016. TECHNIQUE: 13 seconds of intermittent fluoroscopic guidance were provided and 10 spot films of the abdomen were obtained. FINDINGS: There is partial opacification of both collecting systems which appear distended. Subsequently there is placement of bilateral double-J stent catheters which demonstrate normal course. IMPRESSION: INTRAOPERATIVE CONTROL FILMS. CPT II Codes: 6045F
[2016-11-11 09:21] VITALS: BP 126/70
[2016-11-11] MEDS ORDERED: Levofloxacin TAB* 500 MG PO ONE (10:00)
--- NOTE | 2016-11-11 15:01 | OP ---
DATE OF OPERATION: 11/11/16 [facility] DATE OF : 43 SURGEON: Isidro Cevallos MD ANESTHESIOLOGIST: Dr. Alvarado. ANESTHESIA: General. PRE-OP DIAGNOSES: 1. Prostate cancer. 2. Bilateral hydronephrosis (secondary to ureteral stricture, status post radiation). 3. Urinary retention. POST-OP DIAGNOSES: 1. Prostate cancer. 2. Bilateral hydronephrosis (secondary to ureteral stricture, status post radiation). 3. Urinary retention. 4. 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 OPERATIVE PROCEDURE: Cystoscopy, bilateral retrograde, and bilateral ureteral stent change. INDICATIONS: Landon Montilla is a 70-year-old gentleman with a history of advanced prostate cancer and bilateral hydronephrosis secondary to ureteral strictures. In addition, he has a chronic indwelling Burgess catheter. COMPLICATIONS: None. STENT USED: 8.5-Samoan 28-cm silicone stent, right and left ureter. DESCRIPTION OF PROCEDURE: After induction of general anesthesia, the patient was placed in dorsal lithotomy position. Sequential compression devices were in place and functioning. The previously placed Burgess had been removed. Initial cystoscopy revealed a fairly rigid lead pipe urethra with very poor compliance, which made visualization of the bladder somewhat difficult. The stents were seen exiting from the right and left ureteral orifices. Initial visualization was really poor due to some cloudy urine in the bladder. The left stent was removed intact without difficulty. The right stent was removed and broke into 2 pieces. Using a flexible grasping forceps, the second part of the stent was successfully removed and then the entire stent was visualized and it appeared that all the components had been successfully removed. Left retrograde pyelogram revealed left hydronephrosis. A new 8.5-Samoan 28-cm silicone stent was introduced without difficulty. Attention was directed to the right side. Once again, a new 8.5-Samoan 28-cm stent was introduced without difficulty with good proximal and distal positioning obtained. I attempted to get a good look at the entire bladder mucosa. This was still somewhat difficult due to limited visualization, but by exerting some pressure on the anterior abdominal wall, I could visualize some mucus-type drainage from the anterior bladder wall close to the bladder neck. I suspect that there may be a fistulous tract from this area even though a recent cystogram done at [place] had failed to demonstrate any fistula. At this point, I decided to put in a bigger caliber Burgess catheter at the end of the case to see if draining the bladder more effectively will result in spontaneous closure of this fistula. A 22-Samoan Burgess catheter was placed without difficulty and connected to a drainage bag. The plan will be to consider repeating imaging, possibly a noncontrast CT scan in a month or so to assess the collection that had previously been there in the anterior abdominal wall area. The patient tolerated the procedure satisfactorily and was transferred back to the recovery area in stable condition. CC: Dr. Amando Stein* [id number]/[facility] #: [id number] MTDD
== END 2016-11-11 10:00 | disposition home or self-care (01) ==
LOC: OR 06:11
PROVIDERS: ATTEND Urology
DX: N13.1 Hydronephrosis with ureteral stricture, not elsewhere classified (principal); C61 Malignant neoplasm of prostate; N13.9 Obstructive and reflux uropathy, unspecified; R33.8 Other retention of urine; I48.91 Unspecified atrial fibrillation; Z79.01 Long term (current) use of anticoagulants; E11.9 Type 2 diabetes mellitus without complications; Z79.84 Long term (current) use of oral hypoglycemic drugs; I10 Essential (primary) hypertension; N18.9 Chronic kidney disease, unspecified; E78.5 Hyperlipidemia, unspecified
CPT/HCPCS: 74420; A9270-GY; C1876; J0696; J1100; J1885; J1940; J2250; J2405; J2704; J3010

== ENCOUNTER 2016-11-18 18:32 | Inpatient (IN) | payer MEDICARE ==
[2016-11-18 19:48] LABS: Hematocrit 27 % (42-52); Hemoglobin 8.5 g/dl (14.0-18.0); Mean Corpuscular HGB Conc 32 g/dl (31-36); Mean Corpuscular Hemoglobin 25 pg (27-31); Mean Corpuscular Volume 78 fL (80-94); Mean Platelet Volume 7 um3 (7.4-10.4); Red Blood Count 3.44 10^6/ul (4.0-5.4); Red Cell Distribution Width 19 % (10.5-15); White Blood Count 11.4 10^3/ul (3.5-10.8)
[2016-11-18 19:59] LABS: ALT 18 U/L (7-52); AST 12 U/L (13-39); Albumin 3.3 g/dL (3.2-5.2); Alkaline Phosphatase 118 U/L (34-104); Anion Gap 12 mmol/L (2-11); BUN/Creatinine Ratio 24.4 (8-20); Blood Urea Nitrogen 48 mg/dL (6-24); CO2 Carbon Dioxide 21 mmol/L (22-32); Chloride 100 mmol/L (101-111); EGFR African American 43.3 (>60); EGFR Non-African American 33.7 (>60); Globulin 4.4 g/dL (2-4); Glucose 252 mg/dL (70-100); Potassium 4.1 mmol/L (3.5-5.0); Sodium 133 mmol/L (133-145); Total Protein 7.7 g/dL (6.4-8.9)
[2016-11-18 20:01] LABS: Troponin I 0.03 ng/mL (<0.04)
[2016-11-18 20:12] LABS: Alcohol < 10 mg/dL (<10)
--- NOTE | 2016-11-18 20:37 | RAD ---
Indication: Confusion. Single frontal view of the chest performed at 2012 hours was reviewed. Comparison is made with previous exam dated May 04, 2016. No mediastinal shift is noted. Heart is of normal size and configuration. Lung dodson appear clear. IMPRESSION: NO ACTIVE CARDIOPULMONARY DISEASE IS NOTED.
[2016-11-18] MEDS ORDERED: Iodixanol* (CONTRAST) 320 MG/ML 100 ML SDV IV ONE (20:43)
--- NOTE | 2016-11-18 22:19 | RAD ---
Indication: Confusion. CT of the brain was performed without IV contrast. Ventricular structures are midline. No midline shift is noted. The extraction spaces are unremarkable. There is no evidence of intracranial mass or hemorrhage is noted. No other high or low density lesions are identified. Mastoid air cells and paranasal sinuses demonstrates mucosal thickening of the middle and posterior ethmoid air cells. IMPRESSION: No intracranial mass or hemorrhage is noted,
--- NOTE | 2016-11-18 22:31 | RAD ---
Indication: Lower abdominal pain. Contrast: Administered 115.9 ml of VISAPAQUE 320 mgi/ml CT of the abdomen and pelvis was performed after oral and IV contrast administration. Coronal and sagittal reconstructed images were obtained. Comparison is made with previous exam dated September 29, 2016. Lung bases demonstrate no pleural fluid, nodules or masses. Heart is of normal size without evidence of pericardial effusion. Liver is normal in size. No focal lesions or intrahepatic duct dilatation is noted. The gallbladder demonstrates no calcified gallstones. No pericholecystic fluid or wall thickening is identified. The common duct is not dilated. The pancreas demonstrates no mass or pancreatic duct dilatation. The spleen is normal in size. No adrenal lesions are noted. The kidneys demonstrates bilateral ureteral stents. CT of the pelvis demonstrates no retroperitoneal or pelvic lymphadenopathy. Again noted is abnormal soft tissue at the pubic symphysis. There is destruction of the pubic symphysis and there is likely osteomyelitis of the pubic symphysis with adjacent phlegmonous change. No hernias are noted. The urinary bladder is unremarkable. Surgical clips are noted in the pelvis. This is presumably prostatectomy. Small bowel demonstrates no abnormal dilatation. Colon is filled with stool. IMPRESSION: POSTOPERATIVE CHANGES ARE NOTED IN THE PELVIS PRESUMABLY FROM PROSTATECTOMY. AGAIN NOTED IS ABNORMAL SOFT TISSUE AT THE BASE OF THE RECTUS ABDOMINIS MUSCLE AT THE APONEUROSIS AND ATTACHMENT TO THE PUBIS. THERE IS DESTRUCTION AND EROSION OF THE PUBIC SYMPHYSIS AND THIS IS CONSISTENT WITH OSTEOMYELITIS. THIS HAS PROGRESSED SINCE PREVIOUS EXAM. NO EVIDENCE OF BOWEL OBSTRUCTION IS NOTED. BILATERAL URETERAL STENTS ARE NOTED.
[2016-11-18] MEDS ORDERED: Piperac/Tazob 3.375 gm in NS* 3.375 GM/100 ML BAG IVPB ONE (22:57)
[2016-11-18] MEDS ORDERED: Vancomycin(*) 1,500 MG in NS 0.9% 250 ML* 250 ML IVPB ONE (22:57)
[2016-11-18] MEDS ORDERED: NS 0.9% 250 ML* 250 ML ONE (23:12)
[2016-11-18 23:13] LABS: Budding Yeast Present (Absent); Urine Bacteria Absent (Absent); Urine Bilirubin Negative (Negative); Urine Glucose 1+(50 mg/dL) (Negative); Urine Nitrite Negative (Negative)
[2016-11-19] MEDS ORDERED: Dextrose 50% Syringe 50 ML* 25 GM/50 ML SYRINGE IV PUSH PRN (00:23)
[2016-11-19] MEDS ORDERED: Vancomycin per Pharmacy* NOTE FOLLOW UP PRN (00:42)
[2016-11-19] MEDS ORDERED: Vancomycin(*) 0 MG in NS 0.9% 250 ML* 250 ML IVPB SCH (01:00)
[2016-11-19] MEDS: Warfarin TAB(*) 7.5 MG PO SCH ×2 (02:58→17:14)
[2016-11-19] MEDS: Insulin LISPRO* 1 UNITS UNIT SUBCUT SCH ×5 (02:58→20:33)
[2016-11-19] MEDS: Piperac/Tazob 3.375 gm in NS* 3.375 GM/100 ML BAG IVPB SCH ×3 (04:44→20:06)
[2016-11-19] MEDS ORDERED: Heparin VIAL(*) 5000 UNITS/ML VIAL (FIVE THOUSAND) SUBCUT SCH (06:00)
[2016-11-19 08:33] LABS: Iron 20 ug/dL (50-212); Total Iron Binding Capacity 239 mcg/dL (250-450); Transferrin 171 mg/dL (203-362)
[2016-11-19] MEDS: glipiZIDE TAB* 5 MG PO SCH ×2 (08:34→17:14)
[2016-11-19] MEDS: Diltiazem CD CAP* 240 MG PO SCH (08:34)
[2016-11-19] MEDS: Omeprazole CAP* 20 MG PO SCH (08:35)
--- NOTE | 2016-11-19 09:37 | PN ---
Subjective - Subjective Reason for Note: Progress Note History: I reviewed the history with Markie Montilla. He has a longstanding history of urological problems - kidney stones/prostate disease. He has urinary stents and indwelling jarrell catheter. He presented to the emergency department 09/29/2016 with a pelvic abscess following hematoma formation from his anticoagulation. He was transferred to the [facility] ([facility]). He had this abscess evacuated and was on IV antibacterials. I called microbiology at [facility] this morning - microbiology was as follows: Common Strep anginosus group: Gram stain 4+ polys, 4+ gram pos cocci in pairs and clusters. 2 - 3+ gram negative rods Providentia rettgeri Sensitive: Amikacin, Ampicillin + sul bactam, aztreonam, cefepime, ceftriaxone, ertapenemPiperacillin + tazobactam, Tigecycline Resistant: Amp, cipro, gentamicin, Tobra mycin, bactrim. Rare providencia - zosyn (R - gent) anerobic - gram negative mark. Unfortunately, I don't have the discharge summary available. 11/11 He had a ureteric stent replaced by Dr. Cevallos He had improvement of his symptoms. 1 week ago he developed 8/10 right groin pain on walking. 1.5 days before admission he states he developed nausea, vomiting, altered mental state. He had some chills and sweats. Today he is awake, alert, oriented x 3. He has no especial pain at rest. He is not aware of any fever/chills. He has had a good appetite and ate his breakfast - no longer has anorexia/nausea. He has had some diarrhea. I spoke with the familiy when the arrived (after I wrote the above). Their extra concerns: 1. Restless legs - he has had constant movements of his legs since this acute problem started - not a chronic problem 2. Metformin therapy - concerned with his renal insufficiency Active Problems: Active Problems Anemia (Acute) D64.9 Osteomyelitis of symphysis pubis (Acute) M86.9 Restless legs (Acute) Urinary tract infection (Acute) Anticoagulation goal of INR 2 to 3 (Chronic) Z51.81, Z79.01 CKD (chronic kidney disease) stage 3, GFR 30-59 ml/min (Chronic) N18.3 Chronic indwelling Jarrell catheter (Chronic) Z92.89 Diabetes mellitus with insulin therapy (Chronic) E11.9, Z79.4 History of osteomyelitis (Chronic) Z87.39 Hyperlipidemia (Chronic) E78.5 Hypertension (Chronic) I10 Lumbar spinal stenosis (Chronic) M48.06 Nephrolithiasis (Chronic) N20.0 Paroxysmal atrial fibrillation (Chronic) I48.0 S/P laminectomy (Chronic) Z98.890 Type 2 diabetes mellitus (Chronic) Current Medications: Current Medications Atorvastatin Calcium (Lipitor*) 40 mg PO DAILY [facility] Dextrose (D50w Syringe 50 Ml*) 12.5 gm IV PUSH .FOR FS < 60 - SS PRN PRN Reason: FS < 60 Diltiazem HCl (Cardizem Cd Cap*) 240 mg PO DAILY [facility] Last Admin: 11/19/16 08:34 Dose: 240 mg Glipizide (Glucotrol Tab*) 10 mg PO 0800,1700 [facility] Last Admin: 11/19/16 08:34 Dose: 10 mg Piperacillin Sod/Tazobactam Sod (Zosyn 3.375 Gm In Ns Premix*) 3.375 gm in 100 mls @ 25 mls/hr IVPB Q8H [facility] Last Admin: 11/19/16 04:44 Dose: 25 mls/hr Vancomycin HCl 1,000 mg/ (Sodium Chloride) 250 mls @ 166.667 mls/hr IVPB Q12H [facility] Insulin Human Lispro (Humalog*) 0 units SUBCUT ACHS [facility] PRN Reason: Protocol Last Admin: 11/19/16 07:49 Dose: Not Given Omeprazole (Prilosec Cap*) 20 mg PO DAILY [facility] Last Admin: 11/19/16 08:35 Dose: 20 mg Pharmacy Consult (Vancomycin Per Pharmacy*) 1 note FOLLOW UP . PRN PRN Reason: PER PROTOCOL Pharmacy Profile Note (Vancomycin Trough Check) 1 note FOLLOW UP 1230 ONE Stop: 11/20/16 12:31 Warfarin Sodium (Coumadin Tab(*)) 7.5 mg PO DAILY@1700 [facility] PRN Reason: Protocol Last Admin: 11/19/16 02:58 Dose: 7.5 mg Home Medications: Home Medications Medication Instructions Recorded Confirmed Type Omeprazole CAP* [Prilosec CAP* 20 20 mg PO DAILY 06/19/12 11/19/16 History MG] glipiZIDE TAB* [Glucotrol TAB*] 10 mg PO BID 08/19/15 11/19/16 History Atorvastatin* [Lipitor*] 40 mg PO DAILY 09/29/16 11/19/16 History Chlorthalidone 25 mg PO DAILY 09/29/16 11/19/16 History Diltiazem CD CAP* [Cardizem CD 240 mg PO DAILY 09/29/16 11/19/16 History CAP*] Insulin Lispro [Humalog Kwikpen] 14 unit SUBCUT BEDTIME 09/29/16 11/19/16 History Warfarin TAB(*) [Coumadin TAB(*)] 5 mg PO DAILY 09/29/16 11/19/16 History traZODone TAB* [Desyrel TAB*] 50 mg PO BEDTIME PRN 09/29/16 11/19/16 History Allergies: Allergies Allergy/AdvReac Type Severity Reaction Status Date / Time Codeine Allergy tongue Verified 11/11/16 06:23 swells Objective - Vital Signs Vital Signs: Vital Signs 11/19/16 11/19/16 11/19/16 00:56 01:00 03:43 Temperature 98.2 F Pulse Rate 70 70 66 Respiratory 14 16 18 Rate Blood Pressure 135/63 130/70 142/64 (mmHg) O2 Sat by Pulse 96 96 99 Oximetry 11/19/16 11/19/16 04:22 06:31 Temperature 97.9 F 98.2 F Pulse Rate 68 65 Respiratory 16 16 Rate Blood Pressure 138/64 150/65 (mmHg) O2 Sat by Pulse 98 98 Oximetry - Intake and Output Intake and Output: Intake & Output 11/16/16 11/17/16 11/18/16 11/19/16 11:59 11:59 11:59 11:59 Intake Total 280 Output Total 1000 Balance -720 Weight 201 lb 9.6 oz Intake: IV Fluids 280 Oral 0 Output: Jarrell 1000 Other: # Bowel Movements 0 ADLs: Meal Record Start: 11/19/16 01: 20 Freq: DAILY@0900,1400,1800 Status: Active Created 11/19/16 01:19 System (Rec: 11/19/16 01:19 System [id number]) Intake and Output Start: 11/19/16 01: 20 Freq: DAILY@0600,1400,2200 Status: Active Created 11/19/16 01:19 System (Rec: 11/19/16 01:19 System [id number]) Document 11/19/16 05:48 [id number] (Rec: 11/19/16 05:51 [id number]) - Physical Exam General Physical Exam Comment: He is alert, oriented and in no acute distress. He is well hydrated and is hemodynamically stable. He has no swelling/warmth over his pubic synthesis, no skin break down, fluctuance of tenderness General: No Cyanosis, Yes Anemia, No Jaundice, No Clubbing Lungs and Chest: Yes: Chest Expansion Full, Chest Expansion Symetrica, Percussion Note Resonant, Vessicular Breath Sounds. No: Crackles, Wheezes, Respiratory Distress Heart Rate and Rhythm: Regular JVP: Not Elevated Additional Cardiovascular: Yes: Normal Heart Sounds. No: Heart Murmur, Pedal Edema Abdominal Exam: Yes: Soft, Bowel Sounds Present. No: Distention, Abdominal Mass , Hepatomegaly, Abdominal Tenderness, Guarding, Rebound Tenderness - Neuro Orientation: A/O x3 Speech: Normal Results - Results Lab Results: Laboratory Results - last 24 hr 11/19/16 11/19/16 11/19/16 02:51 07:33 07:35 POC Glucose (mg/dL) 210 H 121 H Iron 20 L TIBC 239 L % Saturation 8 L Unsat Iron Binding 219 Radiology Results: Patient Name: MARKIE MONTILLA Medical Record#: [id number] Ordering Physician: Serafin Rai MD Acct.#: [id number] : 1945 Age: 70 Sex: M Location: EMERGENCY DEPARTMENT Exam Date: 11/18/161958 ADM Status: REG ER Order Information: CT ABD/PEL W Accession Number: [id number] CPT: 81586 Indication: Lower abdominal pain. Contrast: Administered 115.9 ml of VISAPAQUE 320 mgi/ml CT of the abdomen and pelvis was performed after oral and IV contrast administration. Coronal and sagittal reconstructed images were obtained. Comparison is made with previous exam dated September 29, 2016. Lung bases demonstrate no pleural fluid, nodules or masses. Heart is of normal size without evidence of pericardial effusion. Liver is normal in size. No focal lesions or intrahepatic duct dilatation is noted. The gallbladder demonstrates no calcified gallstones. No pericholecystic fluid or wall thickening is identified. The common duct is not dilated. The pancreas demonstrates no mass or pancreatic duct dilatation. The spleen is normal in size. No adrenal lesions are noted. The kidneys demonstrates bilateral ureteral stents. CT of the pelvis demonstrates no retroperitoneal or pelvic lymphadenopathy. Again noted is abnormal soft tissue at the pubic symphysis. There is destruction of the pubic symphysis and there is likely osteomyelitis of the pubic symphysis with adjacent phlegmonous change. No hernias are noted. The urinary bladder is unremarkable. Surgical clips are noted in the pelvis. This is presumably prostatectomy. Small bowel demonstrates no abnormal dilatation. Colon is filled with stool. IMPRESSION: POSTOPERATIVE CHANGES ARE NOTED IN THE PELVIS PRESUMABLY FROM PROSTATECTOMY. AGAIN NOTED IS ABNORMAL SOFT TISSUE AT THE BASE OF THE RECTUS ABDOMINIS MUSCLE AT THE APONEUROSIS AND ATTACHMENT TO THE PUBIS. THERE IS DESTRUCTION AND EROSION OF THE PUBIC SYMPHYSIS AND THIS IS CONSISTENT WITH OSTEOMYELITIS. THIS HAS PROGRESSED SINCE PREVIOUS EXAM. NO EVIDENCE OF BOWEL OBSTRUCTION IS NOTED. BILATERAL URETERAL STENTS ARE NOTED. <Electronically signed by Angela Hernandez MD in OV> 11/18/162226 Dictated By: Angela Hernandez MD Dictated Date/Time: 11/18/162226 Transcribed Date/Time: 11/18/162216 Copy to: CC:Amando Stein MD; Serafin Rai MD 1 of 2 Patient Name: MARKIE MONTILLA Medical Record#: [id number] Ordering Physician: Serafin Rai MD Acct.#: [id number] : 1945 Age: 70 Sex: M Location: EMERGENCY DEPARTMENT Exam Date: 11/18/161940 ADM Status: REG ER Order Information: CHEST AP PORTABLE Accession Number: [id number] CPT: 14581 Indication: Confusion. Single frontal view of the chest performed at 2012 hours was reviewed. Comparison is made with previous exam dated May 04, 2016. No mediastinal shift is noted. Heart is of normal size and configuration. Lung dodson appear clear. IMPRESSION: NO ACTIVE CARDIOPULMONARY DISEASE IS NOTED. <Electronically signed by Angela Hernandez MD in OV> 11/18/162033 Dictated By: Angela Hernandez MD Dictated Date/Time: 11/18/162033 Transcribed Date/Time: 11/18/162032 Copy to: CC:Amando Stein MD; Serafin Rai MD [facility] Urgent [facility] [address] [address] ph ([phone]) ph ([phone]) ph ([phone]) Patient Name: MARKIE MONTILLA Medical Record#: [id number] Ordering Physician: Serafin Rai MD Acct.#: [id number] : 1945 Age: 70 Sex: M Location: EMERGENCY DEPARTMENT Exam Date: 11/18/161940 ADM Status: REG ER Order Information: CT BRAIN WO Accession Number: [id number] CPT: 34860 Indication: Confusion. CT of the brain was performed without IV contrast. Ventricular structures are midline. No midline shift is noted. The extraction spaces are unremarkable. There is no evidence of intracranial mass or hemorrhage is noted. No other high or low density lesions are identified. Mastoid air cells and paranasal sinuses demonstrates mucosal thickening of the middle and posterior ethmoid air cells. IMPRESSION: No intracranial mass or hemorrhage is noted, <Electronically signed by Angela Hernandez MD in OV> 11/18/162215 Dictated By: Angela Hernandez MD Dictated Date/Time: 11/18/162215 Transcribed Date/Time: 11/18/162211 Copy to: CC:Amando Stein MD; Serafin Rai MD [facility] [id number] [place] [address] ph ([phone]) ph ([phone]) ph ([phone]) 1 of 1 Assessment - Problem List Assessment: Patient Problems Anemia (Acute) Osteomyelitis of symphysis pubis (Acute) Restless legs (Acute) Urinary tract infection (Acute) Anticoagulation goal of INR 2 to 3 (Chronic) CKD (chronic kidney disease) stage 3, GFR 30-59 ml/min (Chronic) Chronic indwelling Jarrell catheter (Chronic) Diabetes mellitus with insulin therapy (Chronic) History of osteomyelitis (Chronic) Hyperlipidemia (Chronic) Hypertension (Chronic) Lumbar spinal stenosis (Chronic) Nephrolithiasis (Chronic) Paroxysmal atrial fibrillation (Chronic) S/P laminectomy (Chronic) Type 2 diabetes mellitus (Chronic) Plan: Osteomyelitis of symphysis pubis (Acute) I reviewed the CT scan abdo and pelvis with radiology. There has been dramatic erosion of the synthesis pubis since the last visit with soft tissue mass anterior - there is a hint of gas. This looks like ongoing infection. In view of the progression, there is no need for confirmation with MRI or 3 phase bone scan. I suspect he requires IV antibacterial treatment for around 6 weeks. The cultures from [facility] were polymicrobial. This included a predominance of Strep angiosus, rare Providencia rettgeri and some anerobes. No Staph aureus was cultured. I think that Zosyn alone should cover this range. I will stop vancomycin. I will place a PICC. Urinary tract infection (Acute) He had a stent replacement recently and now has a UTI. Prior microbiology from 2016 showed E. coli with intermediate sensitivity to Zosyn. 09/29/2016 - urine had mixed karen - no pathogens. I will await C and S to alter the zosyn prescription. Anticoagulation goal of INR 2 to 3 (Chronic) ongoing Chronic indwelling Jarrell catheter (Chronic) ongoing Chronic kidney disease (CKD) stage G3a/A1, moderately decreased glomerular filtration rate (GFR) between 45-59 mL/min/1.73 square meter and albuminuria creatinine ratio less than 30 mg/g (Chronic) Diabetes mellitus with insulin therapy (Chronic) He is now back under control History of osteomyelitis (Chronic) This was of his ischium 09/03/1999 Hyperlipidemia (Chronic) sec ondary diagnosis Hypertension (Chronic) secondary diagnosis Lumbar spinal stenosis (Chronic) secondary diagnosis Nephrolithiasis (Chronic) secondary diagnosis Paroxysmal atrial fibrillation (Chronic) secondary diagnosis S/P laminectomy (Chronic) secondary diagnosissecondary diagnosis Type 2 diabetes mellitus (Chronic) secondary diagnosis - to stop metformin therapy Anemia: This is likely a combination of anemia secondary to renal insufficiency /acute phase response. He had x 4 units pRBCs earlier this year after the spontaneous hematoma. Restless legs This doesn't seem to be pharmacological. I will give him a therapeutic trial of pramipexole I had a conversation with Talita Montilla () and Anca Montilla (daughter, who has Markie's permission to be a family spokesperson/advocate). I informed them of the complexities of this case - urinary infection following instrumentation and osteomyelitis of pubic synthesis - which is possibly polymicrobial. I will maintain his current antibacterial therapy until I can obtain his urine C and S. I will also obtain an ID consultation with Dr. Sanchez Monday (today Monday). I explained to the family he requires a PICC line and also 6 weeks of antibacterial therapy. I don't know at this stage whether he will need any tissue debridement.
[2016-11-19 12:03] LABS: Hematocrit 28 % (42-52); Hemoglobin 8.8 g/dl (14.0-18.0); Mean Corpuscular HGB Conc 32 g/dl (31-36); Mean Corpuscular Hemoglobin 25 pg (27-31); Mean Corpuscular Volume 78 fL (80-94); Mean Platelet Volume 8 um3 (7.4-10.4); Red Blood Count 3.52 10^6/ul (4.0-5.4); Red Cell Distribution Width 19 % (10.5-15); White Blood Count 9.2 10^3/ul (3.5-10.8)
[2016-11-19 12:17] LABS: EGFR African American 47.2 (>60); EGFR Non-African American 36.7 (>60)
[2016-11-19] MEDS ORDERED: Pramipexole TAB* 0.125 MG PO SCH (14:00)
[2016-11-19] MEDS: Heparin VIAL(*) 5000 UNITS/ML VIAL (FIVE THOUSAND) SUBCUT SCH ×2 (14:03→21:46)
[2016-11-19] MEDS: Pramipexole TAB* 0.125 MG PO SCH ×2 (14:03→20:33)
[2016-11-19] MEDS: Vancomycin(*) 1,000 MG in NS 0.9% 250 ML* 250 ML IVPB SCH (16:04)
[2016-11-19] MEDS: Atorvastatin* 40 MG TAB PO SCH (20:33)
--- NOTE | 2016-11-19 20:39 | HP ---
ADMISSION HISTORY AND PHYSICAL: DATE OF ADMISSION: 11/19/16 CHIEF COMPLAINT: Confusion. HISTORY OF PRESENT ILLNESS: Mr. Montilla is a 70-year-old man with advanced prostate cancer and a history of a possible infection of the distal rectus muscle or symphysis pubis who came to the emergency department this evening complaining of progressive confusion in the last 3 to 4 days. His accompanies him and gives most of the history. The patient has not been recognizing his own and is confusing his medications and dates. The patient also had some vomiting today, but has not had vomiting for most of the last few days. He denies any fever, chills, or headaches. The patient has had prostate cancer with a complicated course over the last more than 10 years. He had a prostatectomy in 2003. He has had recurrence that has required intermittent Lupron therapy. He at this point has an indwelling catheter due to strictures and denies any blood or unusual sediment in the Burgess catheter. The patient was admitted to the [facility] in October for several weeks according to the family and had IR drainage of an abscess in the suprapubic region. He states he went home with a small tube and a bag that was removed in the office by Dr. Cevallos. The patient was also here at this hospital on 11/11/[address] Cevallos and had a routine stent changed for bilateral hydronephrosis. During that H and P, an infection at the distal rectus muscle at the insertion to the symphysis pubis was noted. PAST MEDICAL HISTORY: Includes: 1. Type 2 diabetes. 2. Atrial fibrillation with chronic anticoagulation. 3. Prostate cancer, on Lupron, last dose about 3 weeks ago. 4. Chronic kidney disease stage 2 to 3. 5. Hypertension. 6. Hyperlipidemia. 7. Anemia. 8. Renal disease. PAST SURGICAL HISTORY: Prostatectomy in 2003, L3-L4-L5 laminectomy in May 2016. MEDICATIONS: On admission are: 1. Atorvastatin 40 mg p.o. q.p.m. 2. Chlorthalidone 25 mg p.o. q.a.m. 3. Diltiazem CD 240 mg p.o. daily. 4. Insulin lispro 14 units subcu q.p.m. 5. Omeprazole 20 mg p.o. daily. 6. Warfarin 5 mg p.o. daily. 7. Glipizide 10 mg p.o. b.i.d. 8. Trazodone 50 mg p.o. q.h.s. ALLERGIES: CODEINE. FAMILY HISTORY: Notable for father who at age 50 of unknown causes. Sister of complications of type 2 diabetes. Mother had [place] and from this. 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 He is . He has 4 children. His healthcare proxy is Leidy Horta, his daughter. He quit tobacco in . Quit alcohol in . No recent alcohol use. No recreational drug use. REVIEW OF SYSTEMS: The patient denies any fevers, but may have had some weight loss in the last 3 to 4 months. He denies anorexia today. The patient denies any chest pain or palpitations. The patient denies any cough or shortness of breath. The patient denies any diarrhea or abdominal pain, but does have vomiting as above. Remainder of 14-point review of systems negative other than that mentioned in the HPI. PHYSICAL EXAMINATION GENERAL: He is alert in no acute distress. VITAL SIGNS: Temperature 36.7, pulse 69, respirations 15, blood pressure is 142 /71, O2 sat is 97%. HEENT: Head is normocephalic, atraumatic. Pupils equal, round, and reactive to light and accommodation. Oropharynx is moist without lesions. NECK: No JVD. No carotid bruit. No thyromegaly. LUNGS: Clear to auscultation and percussion bilaterally. HEART: Regular rate and rhythm without murmurs or gallops. ABDOMEN: Soft, nontender, nondistended. Positive bowel sounds. No hepatosplenomegaly. EXTREMITIES: No peripheral edema. Dorsalis pedis pulses are 1+ bilaterally. There is absent posterior tibial pulses bilaterally. SKIN: No rashes. NEUROLOGIC: Cranial nerves II through XII are intact. Motor strength is 5/5 throughout. Deep tendon reflexes are 1+ and symmetric. He is alert and oriented to place and person. Does not know the date. He knows his . He can answer questions, but vaguely. LABORATORY DATA/DIAGNOSTIC STUDIES: Sodium 133, potassium 4.1, chloride 100, bicarb 21, BUN 48, creatinine 1.97, baseline creatinine was 2.4 recently. Glucose is 252, calcium 9.0, albumin 3.3. AST 12, ALT 18, bilirubin 0.4, ammonia level 39. Troponin 0.03. Lactic acid 0.7. Alcohol level less than 10. White count 11.4, hemoglobin 8.5, hematocrit 27%, platelets are 509. PTT is 28. INR is 1.1. Urinalysis shows 2+ protein, 2+ blood, 3+ leukocyte esterase, and negative nitrites. EKG is normal sinus rhythm, leftward axis, left anterior fascicular block. No ischemic ST-T wave changes. 1 PVC visible. Chest x-ray is negative for infiltrate or effusion. Head CT is negative for signs of metastasis or stroke. Abdominal pelvis CT shows apparent osteomyelitis at the pubic symphysis which has progressed from previous. ASSESSMENT AND PLAN: The patient is a 70-year-old man with complicated history of prostate cancer and a potential abscess or osteomyelitis or both at the symphysis pubis, presenting with confusion. The differential of confusion would include such things as hyponatremia, hepatitis, hepatic encephalopathy, meningitis, toxic ingestion. At this point, most of this has been ruled out and it appears that he has confusion due to long-term infection possibly exacerbated by urinary tract infection. The patient will be admitted to the hospital to treat his infection and keep him safe. He will hold his trazodone as that is the only mind-altering medication that he is on. Sepsis is in the differential. His q-SOFA score is 1 which means he is not a high risk of mortality from sepsis. The patient will be started on vancomycin and Zosyn for this osteomyelitis. We should obtain culture data from the work that was done at [facility] last month. The patient will need a nonurgent infectious disease consult with Dr. Sanchez and may need repeat IR drainage. The patient has progressive anemia which was likely due to his heart disease and kidney disease. The patient will have iron and erythropoietin levels checked in the morning and may benefit from Epogen type injection and iron supplementation. The patient has mild hyponatremia and he will have his chlorthalidone held as his thiazide diuretics are not really helpful with creatinine at this stage. For DVT prophylaxis, the patient will remain on warfarin, but his INR is not therapeutic, so this will need to be increased significantly. His dose will be 7.5 mg of warfarin per day and we will check his INR daily. He is at high risk of DVT given his active cancer, so he should have sequential compression devices until he is therapeutic on warfarin. Code status is full. This was discussed with the patient and his . CC: Dr. Stein; Dr. Cevallos; Dr. Oliva * [id number]/CPS #: [id number] MTDD
--- NOTE | 2016-11-19 20:49 | ED ---
Erasmo Fagan Alok, scribed for Serafin Rai MD on 11/18/16 at 2058 . Altered Mental Status - HPI Summary HPI Summary: 70M presents to the ED for AMS and confusion for the last two days. Pt's states that while in the car earlier today her didn't recognize her which has not happened before. Pt's states that her is usually mentally sharp. Pt has been able to get out of bed and ambulate normally. Pt is currently able to recognize himself and is oriented to place and person but not time. Pt c/o nausea, dizziness, and lightheadedness. Pt notes diaphoresis. Pt states he has not had BM for the last two days. Pt denies abd pain, BARBA, fever, chills, myalgia, cough, sore throat, or diarrhea. Pt denies any wounds or recent falls. Pt denies back pain. Pt denies hematuria, dysuria, or changes in urinary frequency. PMHx includes IDDM and pt states his sugar has been in the low 100s. Pt has had a foli catheter for the past 3 years due to prostate CA. Pt last had his catheter changed [address] Cevallos and had new kidney stents installed in both sides. On 09/30/16 he had an abscess drained near his abd by Dr Cevallos. PMHx includes h/o nephrolithiasis and UTI. Pt takes stool softener medication. Pt denies ETOH and is a former tobacco smoker. In addition to AMS, pt also c/o groin pain and testicular throbbing with ecchymosis since his fall 3 months ago. - History Of Current Complaint Chief Complaint: EDAltMentalStatus Stated Complaint: VOMITING/CONFUSED Hx Obtained From: Patient, Family/Commercial Lending Assistant Last Known Well Date: 3 days ago Onset/Duration: Still Present Timing: Constant Severity Initially: Moderate Severity Currently: Moderate Character: Confusion Associated Signs And Symptoms: Positive: Dizziness, Nausea - Allergies/Home Medications Allergies/Adverse Reactions: Allergies Allergy/AdvReac Type Severity Reaction Status Date / Time Codeine Allergy tongue Verified 11/11/16 06:23 swells PMH/Surg Hx/FS Hx/Imm Hx Endocrine/Hematology History: Reports: Hx Diabetes - IDDM, Hx Anemia - HX OF Denies: Hx Anticoagulant Therapy, Hx Sickle Cell Disease Cardiovascular History: Reports: Hx Hypertension - DAILY MEDS, Other Cardiovascular Problems/Disorders - HX OF A-FIB Denies: Hx Pacemaker/ICD Respiratory History: Reports: Hx Sleep Apnea Denies: Other Respiratory Problems/Disorders GI History: Reports: Hx Gastroesophageal Reflux Disease Denies: Hx Jaundice, Other GI Disorders History: Reports: Hx Kidney Infection, Hx Kidney Stones, Hx Renal Disease, Other Problems/Disorders - INDWELLING CATHETER, STENT RIGHT & LEFT URETER, HX OF PROSTATE CANCER Musculoskeletal History: Reports: Hx Arthritis - back, Denies: Other Musculoskeletal History Sensory History: Reports: Hx Cataracts - pepe, Hx Contacts or Glasses - GLASSES Denies: Hx Hearing Aid Opthamlomology History: Reports: Hx Cataracts - pepe, Hx Contacts or Glasses - GLASSES Neurological History: Denies: Other Neuro Impairments/Disorders Psychiatric History: Reports: Hx Depression Denies: Hx Panic Disorder - Cancer History Cancer Type, Location and Year: COLON CANCER 2008 Hx Chemotherapy: Yes - Surgical History Surgery Procedure, Year, and Place: [id number] MULTIPLE BILATERAL RETROGRADE WITH CATHETER AND BILATERL URETERAL STENT EXCHANGES, BALLOON DILATION, [facility] [place]. 2012 BILATERAL CATARACT EXTRACTION WITH IOL IMPLANTS, [facility] [place]. 2012 C7-T1 ACDF AND PLATING, [facility] [place]. 2016 DECOMPRESSION LAMINECTOMY L3-4, 4-5, [facility] [place] Hx Anesthesia Reactions: Yes - NAUSEA AND VOMITING - NEEDS PATCH Infectious Disease History: No Infectious Disease History: Denies: Traveled Outside the [place] in Last 30 Days - Family History Known Family History: Positive: Diabetes - Mother. - Social History Occupation: Retired Lives: With Family Alcohol Use: None Substance Use Type: Reports: None Smoking Status (MU): Former Smoker Type: Cigarettes Amount Used/How Often: 3 PACKS A DAY for 10 years Have You Smoked in the Last Year: No Review of Systems Positive: Skin Diaphoresis. Negative: Fever, Chills Negative: Erythema Negative: Sore Throat Negative: Chest Pain Negative: Shortness Of Breath, Cough Positive: Nausea, Other - Constipation last 2 days. Negative: Abdominal Pain, Vomiting, Diarrhea Genitourinary: Other - Groin pain. Testicular throbbing. Negative: dysuria, frequency, hematuria Negative: Myalgia, Edema, Other - Back Pain Positive: Bruising - Groin. Negative: Rash Neurological: Other - Dizziness. Lightheadedness Negative: Headache Positive: Other - AMS, confusion All Other Systems Reviewed And Are Negative: Yes Physical Exam - Summary Physical Exam Summary: Constitutional: Well-developed, Well-nourished, Alert. (-) Distressed Skin: Warm, Dry HENT: Normocephalic; Atraumatic Eyes: Conjunctiva normal Neck: Musculoskeletal ROM normal neck. (-) JVD, (-) Stridor, (-) Tracheal deviation Cardio: Rhythm regular, rate normal, Heart sounds normal; Intact distal pulses; The pedal pulses are 2+ and symmetric. Radial pulses are 2+ and symmetric. (-) Murmur Pulmonary/Chest wall: Effort normal. (-) Respiratory distress, (-) Wheezes, (-) Rales Abd: Soft, (-) Tenderness, (-) Distension, (-) Guarding, (-) Rebound Musculoskeletal: (-) Edema Lymph: (-) Cervical adenopathy Neuro: Disoriented Psych: Disoriented Male Genital Exam: Normal. No testicular or scrotal erythema. Normal appearing penis. Triage Information Reviewed: Yes Vital Signs On Initial Exam: Initial Vitals Temp Pulse Resp BP Pulse Ox 98.0 F 77 20 142/60 99 11/18/16 18:49 11/18/16 18:49 11/18/16 18:49 11/18/16 18:49 11/18/16 18:49 Vital Signs Reviewed: Yes - [place] Coma Scale Coma Scale Total: 14 Diagnostics - Vital Signs Vital Signs Temp Pulse Resp BP Pulse Ox 11/18/16 20:00 65 14 146/72 96 11/18/16 19:30 68 11 146/67 95 11/18/16 19:21 74 96 11/18/16 19:19 141/63 11/18/16 18:53 98.0 F 76 20 142/60 100 11/18/16 18:49 98.0 F 77 20 142/60 99 - Laboratory Lab Results: Lab Results 11/18/16 11/18/16 11/18/16 Range/Units 19:30 19:30 19:30 WBC 11.4 H (3.5-10.8) 10^3/ul RBC 3.44 L (4.0-5.4) 10^6/ul Hgb 8.5 L (14.0-18.0) g/dl Hct 27 L (42-52) % MCV 78 L (80-94) fL MCH 25 L (27-31) pg MCHC 32 (31-36) g/dl RDW 19 H (10.5-15) % Plt Count 509 H (150-450) 10^3/ul MPV 7 L (7.4-10.4) um3 Neut % (Auto) 86.3 H (38-83) % Lymph % (Auto) 5.9 L (25-47) % [place] % (Auto) 6.7 (1-9) % Eos % (Auto) 0.5 (0-6) % Baso % (Auto) 0.6 (0-2) % Absolute Neuts (auto) 9.9 H (1.5-7.7) 10^3/ul Absolute Lymphs (auto) 0.7 L (1.0-4.8) 10^3/ul Absolute Monos (auto) 0.8 (0-0.8) 10^3/ul Absolute Eos (auto) 0.1 (0-0.6) 10^3/ul Absolute Basos (auto) 0.1 (0-0.2) 10^3/ul Absolute Nucleated RBC 0 10^3/ul Nucleated RBC % 0 Sodium 133 (133-145) mmol/L Potassium 4.1 (3.5-5.0) mmol/L Chloride 100 L (101-111) mmol/L Carbon Dioxide 21 L (22-32) mmol/L Anion Gap 12 H (2-11) mmol/L BUN 48 H (6-24) mg/dL Creatinine 1.97 H (0.67-1.17) mg/dL Est GFR ( Amer) 43.3 (>60) Est GFR (Non-Af Amer) 33.7 (>60) BUN/Creatinine Ratio 24.4 H (8-20) Glucose 252 H (70-100) mg/dL Lactic Acid 0.7 (0.5-2.0) mmol/L Calcium 9.0 (8.6-10.3) mg/dL Total Bilirubin 0.40 (0.2-1.0) mg/dL AST 12 L (13-39) U/L ALT 18 (7-52) U/L Alkaline Phosphatase 118 H (34-104) U/L Ammonia (16-53) mol/L Troponin I 0.03 (<0.04) ng/mL Total Protein 7.7 (6.4-8.9) g/dL Albumin 3.3 (3.2-5.2) g/dL Globulin 4.4 H (2-4) g/dL Albumin/Globulin Ratio 0.8 L (1-3) Serum Alcohol < 10 (<10) mg/dL 11/18/16 Range/Units 19:30 WBC (3.5-10.8) 10^3/ul RBC (4.0-5.4) 10^6/ul Hgb (14.0-18.0) g/dl Hct (42-52) % MCV (80-94) fL MCH (27-31) pg MCHC (31-36) g/dl RDW (10.5-15) % Plt Count (150-450) 10^3/ul MPV (7.4-10.4) um3 Neut % (Auto) (38-83) % Lymph % (Auto) (25-47) % [place] % (Auto) (1-9) % Eos % (Auto) (0-6) % Baso % (Auto) (0-2) % Absolute Neuts (auto) (1.5-7.7) 10^3/ul Absolute Lymphs (auto) (1.0-4.8) 10^3/ul Absolute Monos (auto) (0-0.8) 10^3/ul Absolute Eos (auto) (0-0.6) 10^3/ul Absolute Basos (auto) (0-0.2) 10^3/ul Absolute Nucleated RBC 10^3/ul Nucleated RBC % Sodium (133-145) mmol/L Potassium (3.5-5.0) mmol/L Chloride (101-111) mmol/L Carbon Dioxide (22-32) mmol/L Anion Gap (2-11) mmol/L BUN (6-24) mg/dL Creatinine (0.67-1.17) mg/dL Est GFR ( Amer) (>60) Est GFR (Non-Af Amer) (>60) BUN/Creatinine Ratio (8-20) Glucose (70-100) mg/dL Lactic Acid (0.5-2.0) mmol/L Calcium (8.6-10.3) mg/dL Total Bilirubin (0.2-1.0) mg/dL AST (13-39) U/L ALT (7-52) U/L Alkaline Phosphatase (34-104) U/L Ammonia 39 (16-53) mol/L Troponin I (<0.04) ng/mL Total Protein (6.4-8.9) g/dL Albumin (3.2-5.2) g/dL Globulin (2-4) g/dL Albumin/Globulin Ratio (1-3) Serum Alcohol (<10) mg/dL Result Diagrams: 11/18/16 19:30 11/18/16 19:30 Lab Statement: Any lab studies that have been ordered have been reviewed, and results considered in the medical decision making process. - Radiology CXR Xray Interpretation: Positive (See Comments) - IMPRESSION: NO ACTIVE CARDIOPULMONARY DISEASE IS NOTED. Radiology Interpretation Completed By: Radiologist - CT Brain CT CT Interpretation: Positive (See Comments) - IMPRESSION: No intracranial mass or hemorrhage is noted, CT Interpretation Completed By: Radiologist Abd/Pel CT CT Interpretation: Positive (See Comments) - IMPRESSION: POSTOPERATIVE CHANGES ARE NOTED IN THE PELVIS PRESUMABLY FROM PROSTATECTOMY. AGAIN NOTED IS ABNORMAL SOFT TISSUE AT THE BASE OF THE RECTUS ABDOMINIS MUSCLE AT THE APONEUROSIS AND ATTACHMENT TO THE PUBIS. THERE IS DESTRUCTION AND EROSION OF THE PUBIC SYMPHYSIS AND THIS IS CONSISTENT WITH OSTEOMYELITIS. THIS HAS PROGRESSED SINCE PREVIOUS EXAM. NO EVIDENCE OF BOWEL OBSTRUCTION IS NOTED. BILATERAL URETERAL STENTS ARE NOTED. CT Interpretation Completed By: Radiologist - EKG 2115 Cardiac Rate: NL - 72 bpm EKG Rhythm: Sinus Rhythm EKG Interpretation: No STEMI Altered Mental Statu Course/Dx - Diagnoses Discharge Diagnoses: Osteomyelitis of pelvic region, Delirium - Provider Notifications Discussed Care Of Patient With: Dr. Sesay (Hospitalist) @ [id number] - Will admit pt Discharge - Discharge Plan Condition: Stable Disposition: ADMITTED TO [facility] documentation as recorded by the Erasmo de la fuente Alok accurately reflects the service I personally performed and the decisions made by , Serafin Rai MD.
[2016-11-19] MEDS: Insulin GLARGINE(*) 1 UNITS UNIT SUBCUT SCH (21:47)
[2016-11-19] MEDS: traZODone TAB* 50 MG TAB PO SCH (22:25)
[2016-11-20] MEDS: Vancomycin(*) 1,000 MG in NS 0.9% 250 ML* 250 ML IVPB SCH ×3 (03:07→17:29)
[2016-11-20] MEDS: Piperac/Tazob 3.375 gm in NS* 3.375 GM/100 ML BAG IVPB SCH ×3 (04:41→20:24)
[2016-11-20] MEDS: Heparin VIAL(*) 5000 UNITS/ML VIAL (FIVE THOUSAND) SUBCUT SCH ×3 (05:14→21:45)
[2016-11-20 05:47] LABS: Hematocrit 25 % (42-52); Hemoglobin 7.8 g/dl (14.0-18.0); Mean Corpuscular HGB Conc 32 g/dl (31-36); Mean Corpuscular Hemoglobin 25 pg (27-31); Mean Corpuscular Volume 78 fL (80-94); Mean Platelet Volume 7 um3 (7.4-10.4); Red Blood Count 3.16 10^6/ul (4.0-5.4); Red Cell Distribution Width 19 % (10.5-15)
[2016-11-20 06:03] LABS: BUN/Creatinine Ratio 21.8 (8-20); C Reactive Protein 78.78 mg/L (< 5.00); Calcium 8.8 mg/dL (8.6-10.3); Direct Bilirubin 0.1 mg/dL (0.03-0.18); EGFR Non-African American 38.9 (>60); Indirect Bilirubin 0.2 mg/dL (0.3-1.0); Total Bilirubin 0.3 mg/dL (0.2-1.0)
[2016-11-20] MEDS: Insulin LISPRO* 1 UNITS UNIT SUBCUT SCH ×4 (07:33→20:23)
[2016-11-20] MEDS: Pramipexole TAB* 0.125 MG PO SCH ×3 (08:14→20:22)
[2016-11-20] MEDS: Diltiazem CD CAP* 240 MG PO SCH (08:14)
[2016-11-20] MEDS: Omeprazole CAP* 20 MG PO SCH (08:14)
[2016-11-20] MEDS: glipiZIDE TAB* 5 MG PO SCH ×2 (08:14→16:31)
[2016-11-20] MEDS: Atorvastatin* 40 MG TAB PO SCH (08:14)
[2016-11-20] MEDS ORDERED: Acetaminophen TAB* 325 MG PO PRN (11:05)
[2016-11-20] MEDS: Ferrous Sulfate TAB* 325 MG PO SCH (11:38)
[2016-11-20] MEDS: traMADol TAB* 50 MG PO PRN ×2 (11:38→17:29)
[2016-11-20] MEDS ORDERED: Vancomycin Trough Check NOTE FOLLOW UP ONE (15:30)
[2016-11-20] MEDS ORDERED: Warfarin TAB(*) 10 MG PO ONE (17:00)
[2016-11-20] MEDS: Gabapentin CAP(*) 100 MG PO SCH (20:23)
[2016-11-20] MEDS: traZODone TAB* 50 MG TAB PO SCH (20:23)
[2016-11-20] MEDS: Insulin GLARGINE(*) 1 UNITS UNIT SUBCUT SCH (21:45)
[2016-11-21] MEDS: Piperac/Tazob 3.375 gm in NS* 3.375 GM/100 ML BAG IVPB SCH ×3 (03:15→19:27)
[2016-11-21] MEDS ORDERED: Vancomycin Trough Check NOTE FOLLOW UP ONE (06:00)
[2016-11-21] MEDS: Heparin VIAL(*) 5000 UNITS/ML VIAL (FIVE THOUSAND) SUBCUT SCH ×3 (06:19→23:44)
[2016-11-21 06:41] LABS: Hematocrit 26 % (42-52); Hemoglobin 8.4 g/dl (14.0-18.0); Mean Corpuscular HGB Conc 32 g/dl (31-36); Mean Corpuscular Hemoglobin 26 pg (27-31); Mean Corpuscular Volume 79 fL (80-94); Mean Platelet Volume 7 um3 (7.4-10.4); Red Blood Count 3.28 10^6/ul (4.0-5.4); Red Cell Distribution Width 19 % (10.5-15); White Blood Count 13.9 10^3/ul (3.5-10.8)
[2016-11-21 06:52] LABS: BUN/Creatinine Ratio 20.4 (8-20); Calcium 8.3 mg/dL (8.6-10.3); EGFR African American 44.9 (>60); EGFR Non-African American 34.9 (>60); Potassium 4.2 mmol/L (3.5-5.0)
[2016-11-21] MEDS: Vancomycin(*) 1,000 MG in NS 0.9% 250 ML* 250 ML IVPB SCH (07:11)
[2016-11-21] MEDS: Insulin LISPRO* 1 UNITS UNIT SUBCUT SCH ×4 (07:34→23:46)
--- NOTE | 2016-11-21 08:06 | PN ---
Subjective - Subjective Reason for Note: Progress Note History: He has walked with assistance without severe pain- he has some right groin pain. He is not febrile and has had no chills or shakes. His Burgess catheter is in situ and he has no adverse symptoms. His appetite has returned and he has no digestive problems. He denies cough/sputum Active Problems: Active Problems Anemia (Acute) D64.9 Osteomyelitis of symphysis pubis (Acute) M86.9 Restless legs (Acute) Urinary tract infection (Acute) Anticoagulation goal of INR 2 to 3 (Chronic) Z51.81, Z79.01 CKD (chronic kidney disease) stage 3, GFR 30-59 ml/min (Chronic) N18.3 Chronic indwelling Burgess catheter (Chronic) Z92.89 Diabetes mellitus with insulin therapy (Chronic) E11.9, Z79.4 History of osteomyelitis (Chronic) Z87.39 Hyperlipidemia (Chronic) E78.5 Hypertension (Chronic) I10 Lumbar spinal stenosis (Chronic) M48.06 Nephrolithiasis (Chronic) N20.0 Paroxysmal atrial fibrillation (Chronic) I48.0 S/P laminectomy (Chronic) Z98.890 Type 2 diabetes mellitus (Chronic) Current Medications: Current Medications Acetaminophen (Tylenol Tab*) 650 mg PO Q4H PRN PRN Reason: PAIN - MILD Atorvastatin Calcium (Lipitor*) 40 mg PO DAILY [facility] Last Admin: 11/20/16 08:14 Dose: 40 mg Dextrose (D50w Syringe 50 Ml*) 12.5 gm IV PUSH .FOR FS < 60 - SS PRN PRN Reason: FS < 60 Diltiazem HCl (Cardizem Cd Cap*) 240 mg PO DAILY [facility] Last Admin: 11/20/16 08:14 Dose: 240 mg Ferrous Sulfate (Ferrous Sulfate Tab*) 325 mg PO DAILY [facility] Last Admin: 11/20/16 11:38 Dose: 325 mg Gabapentin (Neurontin Cap(*)) 100 mg PO BEDTIME [facility] Last Admin: 11/20/16 20:23 Dose: 100 mg Glipizide (Glucotrol Tab*) 10 mg PO 0800,1700 [facility] Last Admin: 11/20/16 16:31 Dose: 10 mg Heparin Sodium (Porcine) (Heparin Vial(*)) 5,000 units SUBCUT Q8HR [facility] Last Admin: 11/21/16 06:19 Dose: 5,000 units Piperacillin Sod/Tazobactam Sod (Zosyn 3.375 Gm In Ns Premix*) 3.375 gm in 100 mls @ 25 mls/hr IVPB Q8H [facility] Last Admin: 11/21/16 03:15 Dose: 25 mls/hr Vancomycin HCl 1,000 mg/ (Sodium Chloride) 250 mls @ 166.667 mls/hr IVPB 0600, 1800 [facility] Last Admin: 11/21/16 07:11 Dose: 166.667 mls/hr Insulin Glargine (Lantus(*)) 14 units SUBCUT Q24H [facility] Last Admin: 11/20/16 21:45 Dose: 14 unit Insulin Human Lispro (Humalog*) 0 units SUBCUT ACHS [facility] PRN Reason: Protocol Last Admin: 11/21/16 07:34 Dose: Not Given Omeprazole (Prilosec Cap*) 20 mg PO DAILY [facility] Last Admin: 11/20/16 08:14 Dose: 20 mg Pharmacy Consult (Vancomycin Per Pharmacy*) 1 note FOLLOW UP . PRN PRN Reason: PER PROTOCOL Pramipexole Dihydrochloride (Mirapex Tab*) 0.125 mg PO TID [facility] Last Admin: 11/20/16 20:22 Dose: 0.125 mg Tramadol HCl (Ultram*) 50 mg PO Q6H PRN PRN Reason: PAIN - MODERATE Last Admin: 11/20/16 17:29 Dose: 50 mg Tramadol HCl (Ultram*) 100 mg PO Q6H PRN PRN Reason: PAIN - SEVERE Trazodone HCl (Desyrel Tab*) 50 mg PO BEDTIME [facility] Last Admin: 11/20/16 20:23 Dose: 50 mg Home Medications: Home Medications Medication Instructions Recorded Confirmed Type Omeprazole CAP* [Prilosec CAP* 20 20 mg PO DAILY 06/19/12 11/19/16 History MG] glipiZIDE TAB* [Glucotrol TAB*] 10 mg PO BID 08/19/15 11/19/16 History Atorvastatin* [Lipitor*] 40 mg PO DAILY 09/29/16 11/19/16 History Chlorthalidone 25 mg PO DAILY 09/29/16 11/19/16 History Diltiazem CD CAP* [Cardizem CD 240 mg PO DAILY 09/29/16 11/19/16 History CAP*] Insulin Lispro [Humalog Kwikpen] 14 unit SUBCUT BEDTIME 09/29/16 11/19/16 History Warfarin TAB(*) [Coumadin TAB(*)] 5 mg PO DAILY 09/29/16 11/19/16 History traZODone TAB* [Desyrel TAB*] 50 mg PO BEDTIME PRN 09/29/16 11/19/16 History Allergies: Allergies Allergy/AdvReac Type Severity Reaction Status Date / Time Codeine Allergy tongue Verified 11/11/16 06:23 chris Objective - Vital Signs Vital Signs: Vital Signs 11/20/16 11/20/16 11/20/16 11:38 12:33 13:03 Temperature 97.7 F 98.4 F Pulse Rate 79 85 Respiratory 18 18 17 Rate Blood Pressure 125/60 130/54 (mmHg) O2 Sat by Pulse 97 98 Oximetry 11/20/16 11/20/16 11/20/16 13:22 15:23 17:29 Temperature 98.1 F Pulse Rate 77 Respiratory 16 18 20 Rate Blood Pressure 140/68 (mmHg) O2 Sat by Pulse 97 Oximetry 11/20/16 11/20/16 11/20/16 19:29 19:30 20:00 Temperature 97.7 F Pulse Rate 70 Respiratory 16 32 16 Rate Blood Pressure 125/59 (mmHg) O2 Sat by Pulse 96 Oximetry 11/20/16 11/20/16 11/20/16 20:23 22:23 23:40 Temperature 97.6 F Pulse Rate 66 Respiratory 16 18 22 Rate Blood Pressure 124/61 (mmHg) O2 Sat by Pulse 98 Oximetry 11/21/16 11/21/16 03:53 07:28 Temperature 97.5 F 98.4 F Pulse Rate 68 72 Respiratory 14 16 Rate Blood Pressure 135/62 133/61 (mmHg) O2 Sat by Pulse 96 97 Oximetry - Intake and Output Intake and Output: Intake & Output 11/18/16 11/19/16 11/20/16 11/21/16 11:59 11:59 11:59 11:59 Intake Total 1000 2583 2345 Output Total 1700 2500 1475 Balance -700 83 870 Weight 201 lb 9.6 oz Intake: IV Fluids 300 70 NS 20 70 IVPB 110 853 350 Vancomycin 535 250 Zosyn 110 318 100 Oral 590 1660 1660 Whole Blood 335 Output: Burgess 1700 2500 1475 Other: # Bowel Movements 0 1 0 Estimated Stool Amount Large Large # Voids 2 ADLs: Meal Record Start: 11/19/16 01: 20 Freq: DAILY@0900,1400,1800 Status: Active Created 11/19/16 01:19 System (Rec: 11/19/16 01:19 System [id number]) Document 11/19/16 09:00 [id number] (Rec: 11/19/16 12:39 [id number] MED-C11) Document 11/19/16 14:00 [id number] (Rec: 11/19/16 16:06 [id number] MED-C11) Document 11/19/16 17:53 [id number] (Rec: 11/19/16 17:54 [id number] MED-C04) Document 11/20/16 09:00 [id number] (Rec: 11/20/16 12:32 [id number] MED-C11) Document 11/20/16 13:43 [id number] (Rec: 11/20/16 13:44 [id number] MED-C11) Document 11/20/16 18:00 [id number] (Rec: 11/20/16 18:25 [id number] MED-C11) Intake and Output Start: 11/19/16 01: 20 Freq: DAILY@0600,1400,2200 Status: Active Created 11/19/16 01:19 System (Rec: 11/19/16 01:19 System MED-M06) Document 11/19/16 05:48 [id number] (Rec: 11/19/16 05:51 [id number] MEDL-C01) Document 11/19/16 14:00 [id number] (Rec: 11/19/16 16:07 [id number] MED-C11) Document 11/20/16 03:27 [id number] (Rec: 11/20/16 03:27 [id number] MED-C42) Document 11/20/16 11:12 [id number] (Rec: 11/20/16 11:13 [id number] MED-C04) Document 11/20/16 14:00 [id number] (Rec: 11/20/16 15:12 [id number] MED-C04) Document 11/20/16 15:25 [id number] (Rec: 11/20/16 15:25 [id number] MED-C04) Document 11/20/16 20:52 [id number] (Rec: 11/20/16 20:53 [id number] MED-C11) Document 11/21/16 06:00 [id number] (Rec: 11/21/16 06:30 [id number] MEDL-C02) - Physical Exam General Physical Exam Comment: He has no pain or swelling over his synthesis pubis, there is some slight tenderness right upper groin. General: No Cyanosis, Yes Anemia, No Jaundice, No Clubbing Lungs and Chest: Yes: Chest Expansion Full, Chest Expansion Symetrica, Percussion Note Resonant, Vessicular Breath Sounds. No: Crackles, Wheezes Heart Rate and Rhythm: Regular Additional Cardiovascular: Yes: Normal Heart Sounds. No: Heart Murmur, Pedal Edema Abdominal Exam: Yes: Soft, Bowel Sounds Present. No: Distention, Abdominal Mass , Abdominal Tenderness Results - Results Lab Results: Laboratory Results - last 24 hr 11/20/16 11/20/16 11/20/16 05:08 11:21 12:15 WBC RBC Hgb Hct MCV MCH MCHC RDW Plt Count MPV INR (Anticoag Therapy) Sodium Potassium Chloride Carbon Dioxide Anion Gap BUN Creatinine Est GFR ( Amer) Est GFR (Non-Af Amer) BUN/Creatinine Ratio Glucose POC Glucose (mg/dL) 127 H Calcium Vancomycin Trough 19.8 Blood Type O Positive Antibody Screen Negative Crossmatch See Detail 11/20/16 11/20/16 11/21/16 16:18 20:09 06:19 WBC RBC Hgb Hct MCV MCH MCHC RDW Plt Count MPV INR (Anticoag Therapy) 1.36 H Sodium Potassium Chloride Carbon Dioxide Anion Gap BUN Creatinine Est GFR ( Amer) Est GFR (Non-Af Amer) BUN/Creatinine Ratio Glucose POC Glucose (mg/dL) 250 H 204 H Calcium Vancomycin Trough Blood Type Antibody Screen Crossmatch 11/21/16 11/21/16 11/21/16 06:19 06:19 06:20 WBC 13.9 H RBC 3.28 L Hgb 8.4 L Hct 26 L MCV 79 L MCH 26 L MCHC 32 RDW 19 H Plt Count 429 MPV 7 L INR (Anticoag Therapy) Sodium 137 Potassium 4.2 Chloride 102 Carbon Dioxide 23 Anion Gap 12 H BUN 39 H Creatinine 1.91 H Est GFR ( Amer) 44.9 Est GFR (Non-Af Amer) 34.9 BUN/Creatinine Ratio 20.4 H Glucose 93 POC Glucose (mg/dL) Calcium 8.3 L Vancomycin Trough 18.8 Blood Type Antibody Screen Crossmatch 11/21/16 07:13 WBC RBC Hgb Hct MCV MCH MCHC RDW Plt Count MPV INR (Anticoag Therapy) Sodium Potassium Chloride Carbon Dioxide Anion Gap BUN Creatinine Est GFR ( Amer) Est GFR (Non-Af Amer) BUN/Creatinine Ratio Glucose POC Glucose (mg/dL) 102 Calcium Vancomycin Trough Blood Type Antibody Screen Crossmatch Assessment - Problem List Assessment: Patient Problems Anemia (Acute) Osteomyelitis of symphysis pubis (Acute) Restless legs (Acute) Urinary tract infection (Acute) Anticoagulation goal of INR 2 to 3 (Chronic) CKD (chronic kidney disease) stage 3, GFR 30-59 ml/min (Chronic) Chronic indwelling Burgess catheter (Chronic) Diabetes mellitus with insulin therapy (Chronic) History of osteomyelitis (Chronic) Hyperlipidemia (Chronic) Hypertension (Chronic) Lumbar spinal stenosis (Chronic) Nephrolithiasis (Chronic) Paroxysmal atrial fibrillation (Chronic) S/P laminectomy (Chronic) Type 2 diabetes mellitus (Chronic) Plan: Osteomyelitis of symphysis pubis (Acute) We are maintaining his antibacterial coverage until Dr. Sanchez reviews him. I remain puzzled as to the source of the polymicrobial infection. This all started when he slipped on the ice and fell. He denies any breach in his skin. He developed a large hematoma in his pubic region/anterior abdominal wall. He developed sepsis and sepsis and this was drained - multiple organisms grew. Urinary tract infection (Acute) His urine grew Mar albicans with cfu 75, 000 - 100,000 - this is likely secondary to an indwelling catheter and T2D. This may be a colonizer rather than a pathogent - Dr. Sanchez will decide if we need to treat. Restless legs (Acute) This is chronic, but was exacerbated. He is now taking pramipexole that may be helping. Anemia (Acute) This is iron deficiency in part. Dr. Crowley started him on oral iron. Anticoagulation goal of INR 2 to 3 (Chronic) He takes warfarin for paroxysmal atrial fibrillation. He developed this troublesome hematoma as he fell when he slipped on ice. He has not been falling otherwise. I think we should on balance treat him with warfarin. I discussed this with the patient - the pros and cons. CKD (chronic kidney disease) stage 3, GFR 30-59 ml/min (Chronic) ongoing Chronic indwelling Burgess catheter (Chronic) ongoing Diabetes mellitus with insulin therapy (Chronic) Reasonably controlled History of osteomyelitis (Chronic) Hyperlipidemia (Chronic) continue current Rx Hypertension (Chronic) continue current rx Lumbar spinal stenosis (Chronic) secondary diagnosis Nephrolithiasis (Chronic) secondary diagnosis Paroxysmal atrial fibrillation (Chronic) Sinus rhythm on this admission S/P laminectomy (Chronic) I discussed this with the patient and he agrees with the management plan. I will continue to have him get out of bed and walk with assistance.
[2016-11-21] MEDS: Atorvastatin* 40 MG TAB PO SCH (08:59)
[2016-11-21] MEDS: Diltiazem CD CAP* 240 MG PO SCH (08:59)
[2016-11-21] MEDS: glipiZIDE TAB* 5 MG PO SCH ×2 (08:59→17:27)
[2016-11-21] MEDS: Omeprazole CAP* 20 MG PO SCH (09:00)
[2016-11-21] MEDS: Pramipexole TAB* 0.125 MG PO SCH ×3 (09:00→23:43)
[2016-11-21] MEDS: Ferrous Sulfate TAB* 325 MG PO SCH (09:00)
--- NOTE | 2016-11-21 13:29 | CONS ---
CONSULTATION REPORT: DATE OF CONSULT: 11/21/16 REQUESTING PHYSICIAN: Dr. Stein. CONSULTING SERVICE: Infectious Disease. REASON FOR CONSULT: Pelvic infection. IMPRESSION: 1. CT scan that shows destruction of the pubic symphysis due to adjacent pelvic osteomyelitis and abscess. This is persistent, initially diagnosed and treated at [facility] in early October 2016. It is in the setting of a chronic Burgess catheter and bilaterally ureteral stents. A review of Dr. Cevallos' s recent operative report raises the question of a fistulous connection between the bladder and the area of infection. Question bowel involvement, though none seen on fistulogram done at [facility]. 2. Ureteral stricture, requiring chronic Burgess catheter and bilateral ureteral stents which were just changed on 11/11/16. 3. Candiduria due to faby albicans, 75 to 100,000 colonies. Given that it is improving without treating it, I leave this as colonization and not infection. 4. Type 2 diabetes. 5. Atrial fibrillation. 6. History of prostate cancer, status post prostatectomy and on Lupron therapy. 7. Chronic kidney disease, stage II to III. 8. Encephalopathy present on admission, now resolved. RECOMMENDATIONS: As the culture results from IR-guided aspiration at [facility] showed the abscesses grew a viridans group streptococci (strep anginosus), as well as Providencia which was sensitive to Zosyn, ceftriaxone, and cefepime, but resistant to Bactrim, ciprofloxacin, and ampicillin. It was Unasyn sensitive. I will continue Zosyn here and stop vancomycin. I believe he will need a long course of IV antibiotics, potentially followed by a long-course of oral antibiotic therapy as well. At this point, I do not see a surgical indication given that he is improving with antibiotic therapy. I will discuss the case with Dr. Cevallos to see if he believes there is any further imaging required to evaluate for connection between the bladder and the intraabdominal contents. HISTORY OF PRESENT ILLNESS: This is a 70-year-old male with a history of prostate cancer, prostatectomy, urethral stricture, with chronic indwelling Burgess catheter and bilateral ureteral stents, admitted with delirium. He cannot provide much history of that part of his illness as he does not remember it, which is obtained instead from review of the medical records. He came to the emergency room on November 19, with worsening confusion for 3 or 4 days, was not recognizing his or taking the right medications. There had been no fever, chills or headache. He was apparently having severe pain with weightbearing and ambulation of the pelvis and hips. He says that is largely improved. He does notice the right hip is worse than the left, that if he moves the hip or puts weight on it, it still hurts some, but if he is slow it is manageable. The pain is about 6/10 down from a 12/10. He has had vancomycin and Zosyn here. He had a CT scan that showed findings as above. His blood cultures are negative for 48 hours. His urine culture grew faby albicans. He has had no fevers while here. This illness all began about early October with similar symptoms. CT scan with similar findings. He came to the ER here, then was transferred to [facility] where he had IR-guided aspiration and drain placement. I reviewed the discharge summary and notes from that admission, he grew strep anginosus and Providencia. He was treated with Zosyn there. He was transitioned to 10 days of Augmentin. He said he took it for a couple of days, but it caused irritation to his mouth, so he stopped it and has been off of it for about 2-1/ 2 to 3 weeks. He was seen by Urology and Interventional Radiology there. Drain was left in place and eventually removed. The drain site is not bothering him, in fact it has healed up. He had bilateral ureteral stents changed on 06/[address] Cevallos. He notes some mucus drainage into the bladder, close to the bladder neck. PAST MEDICAL HISTORY: 1. Prostate cancer, status post prostatectomy, now on Lupron. 2. Urethral stricture, with chronic Burgess catheter. 3. Bilateral hydronephrosis with bilateral ureteral stents, chronic. 4. Chronic kidney disease, stage II to III. 5. Hypertension. 6. Type 2 diabetes. 7. Hyperlipidemia. 8. Anemia. 9. Status post lumbar laminectomy in 2016. MEDICATIONS: 1. Tylenol. 2. Lipitor. 3. Diltiazem. 4. Ferrous sulfate. 5. Heparin subcutaneous injection. 6. Insulin glargine. 7. Omeprazole. 8. Mirapex. 9. Vancomycin 1 g every 12 hours. 10. Warfarin. 11. Zosyn 3.375 g every 8 hours. 12. Glipizide. 13. Tramadol. 14. Trazodone. ALLERGIES: CODEINE. FAMILY HISTORY: No recurrent infections. His father in his 50s from unknown causes. Sister of complications from diabetes. Mother had coronary artery disease and NM from which she . SOCIAL HISTORY: He lives in [facility]. 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 He has no travel or sick contacts. REVIEW OF SYSTEMS: A full review of systems is negative, as noted above. PHYSICAL EXAMINATION: Temperature is 37, heart rate 70, respiratory rate 16, blood pressure 130/60, and O2 sat 97% on room air. In general, he is awake, not in distress. Neurologically, he is oriented x3, follows all commands, answers all questions. HEENT: There is no conjunctival hemorrhage. Oropharynx without lesions. Neck is supple, without nuchal rigidity. Lymph nodes: There is no cervical, supraclavicular, inguinal, axillary or epitrochlear lymphadenopathy. Heart is regular, without murmurs, rubs or gallops. Lungs are clear to auscultation bilaterally. Abdomen: Soft, nontender, and nondistended. There is bowel sounds present. There is no suprapubic tenderness. Genitourinary: There is a Burgess catheter present. There is no testicular mass or tenderness to palpation. There is no suprapubic tenderness. There is right pubic symphysis tenderness. Skin: There is no rash or splinter hemorrhages. Musculoskeletal: There is no spinous tenderness to palpation. There is pain with right hip flexion and extension. DIAGNOSTIC STUDIES/LAB DATA: Creatinine 1.9, BUN 39, CRP on admission was 78. White blood cell count 13, hemoglobin 8, platelets 429, MCV 79. Urinalysis show protein, blood, leukocyte esterase, white cells, red cells, yeast, and glucose. Please see impressions and recommendations outlined above which I discussed with Dr Stein. Thanks for asking me to see Mr. Montilla in consultation. [id number]/[facility] #: [id number]
[2016-11-21] MEDS: Gabapentin CAP(*) 100 MG PO SCH (23:43)
[2016-11-21] MEDS: traZODone TAB* 50 MG TAB PO SCH (23:43)
[2016-11-21] MEDS: Insulin GLARGINE(*) 1 UNITS UNIT SUBCUT SCH (23:46)
[2016-11-22] MEDS: Heparin VIAL(*) 5000 UNITS/ML VIAL (FIVE THOUSAND) SUBCUT SCH ×3 (05:36→21:01)
[2016-11-22] MEDS: Piperac/Tazob 3.375 gm in NS* 3.375 GM/100 ML BAG IVPB SCH ×2 (05:36→12:10)
[2016-11-22 05:56] LABS: Hematocrit 25 % (42-52); Hemoglobin 8.1 g/dl (14.0-18.0); Mean Corpuscular HGB Conc 33 g/dl (31-36); Mean Corpuscular Hemoglobin 26 pg (27-31); Mean Corpuscular Volume 79 fL (80-94); Mean Platelet Volume 7 um3 (7.4-10.4); Red Blood Count 3.12 10^6/ul (4.0-5.4); Red Cell Distribution Width 19 % (10.5-15); White Blood Count 10.5 10^3/ul (3.5-10.8)
[2016-11-22] MEDS: traMADol TAB* 50 MG PO PRN ×2 (07:52→21:14)
[2016-11-22] MEDS: glipiZIDE TAB* 5 MG PO SCH ×2 (07:54→17:24)
[2016-11-22] MEDS: Pramipexole TAB* 0.125 MG PO SCH ×3 (07:54→21:05)
[2016-11-22] MEDS: Omeprazole CAP* 20 MG PO SCH (07:55)
[2016-11-22] MEDS: Atorvastatin* 40 MG TAB PO SCH (07:55)
[2016-11-22] MEDS: Diltiazem CD CAP* 240 MG PO SCH (07:55)
[2016-11-22] MEDS: Ferrous Sulfate TAB* 325 MG PO SCH (07:55)
[2016-11-22] MEDS: Insulin LISPRO* 1 UNITS UNIT SUBCUT SCH ×4 (07:57→21:00)
--- NOTE | 2016-11-22 08:16 | PN ---
Subjective - Subjective Reason for Note: Progress Note History: He has pain when be adducts his legs - around 6/10. He has been able to walk around the [place]. He has had no fever/sweats or chills. His appetite is good and he has had no complications from his antibacterial management. Active Problems: Active Problems Anemia (Acute) D64.9 Osteomyelitis of symphysis pubis (Acute) M86.9 Restless legs (Acute) Urinary tract infection (Acute) Anticoagulation goal of INR 2 to 3 (Chronic) Z51.81, Z79.01 CKD (chronic kidney disease) stage 3, GFR 30-59 ml/min (Chronic) N18.3 Chronic indwelling Burgess catheter (Chronic) Z92.89 Diabetes mellitus with insulin therapy (Chronic) E11.9, Z79.4 History of osteomyelitis (Chronic) Z87.39 Hyperlipidemia (Chronic) E78.5 Hypertension (Chronic) I10 Lumbar spinal stenosis (Chronic) M48.06 Nephrolithiasis (Chronic) N20.0 Paroxysmal atrial fibrillation (Chronic) I48.0 S/P laminectomy (Chronic) Z98.890 Type 2 diabetes mellitus (Chronic) Current Medications: Current Medications Acetaminophen (Tylenol Tab*) 650 mg PO Q4H PRN PRN Reason: PAIN - MILD Atorvastatin Calcium (Lipitor*) 40 mg PO DAILY [facility] Last Admin: 11/22/16 07:55 Dose: 40 mg Dextrose (D50w Syringe 50 Ml*) 12.5 gm IV PUSH .FOR FS < 60 - SS PRN PRN Reason: FS < 60 Diltiazem HCl (Cardizem Cd Cap*) 240 mg PO DAILY [facility] Last Admin: 11/22/16 07:55 Dose: 240 mg Ferrous Sulfate (Ferrous Sulfate Tab*) 325 mg PO DAILY [facility] Last Admin: 11/22/16 07:55 Dose: 325 mg Gabapentin (Neurontin Cap(*)) 100 mg PO BEDTIME [facility] Last Admin: 11/21/16 23:43 Dose: 100 mg Glipizide (Glucotrol Tab*) 10 mg PO 0800,1700 [facility] Last Admin: 11/22/16 07:54 Dose: 10 mg Heparin Sodium (Porcine) (Heparin Vial(*)) 5,000 units SUBCUT Q8HR [facility] Last Admin: 11/22/16 05:36 Dose: 5,000 units Heparin Sodium (Porcine) (Heparin Flush Picc/Ml/Cvc(*)) 1 - 3 ml FLUSH 0600, 1800 [facility] PRN Reason: Protocol Last Admin: 11/22/16 05:36 Dose: Not Given Piperacillin Sod/Tazobactam Sod (Zosyn 3.375 Gm In Ns Premix*) 3.375 gm in 100 mls @ 25 mls/hr IVPB Q8H [facility] Last Admin: 11/22/16 05:36 Dose: 25 mls/hr Insulin Glargine (Lantus(*)) 14 units SUBCUT Q24H [facility] Last Admin: 11/21/16 23:46 Dose: 14 unit Insulin Human Lispro (Humalog*) 0 units SUBCUT ACHS [facility] PRN Reason: Protocol Last Admin: 11/22/16 07:57 Dose: Not Given Omeprazole (Prilosec Cap*) 20 mg PO DAILY [facility] Last Admin: 11/22/16 07:55 Dose: 20 mg Pramipexole Dihydrochloride (Mirapex Tab*) 0.125 mg PO TID [facility] Last Admin: 11/22/16 07:54 Dose: 0.125 mg Tramadol HCl (Ultram*) 50 mg PO Q6H PRN PRN Reason: PAIN - MODERATE Last Admin: 11/20/16 17:29 Dose: 50 mg Tramadol HCl (Ultram*) 100 mg PO Q6H PRN PRN Reason: PAIN - SEVERE Last Admin: 11/22/16 07:52 Dose: 100 mg Trazodone HCl (Desyrel Tab*) 50 mg PO BEDTIME [facility] Last Admin: 11/21/16 23:43 Dose: 50 mg Home Medications: Home Medications Medication Instructions Recorded Confirmed Type Omeprazole CAP* [Prilosec CAP* 20 20 mg PO DAILY 06/19/12 11/19/16 History MG] glipiZIDE TAB* [Glucotrol TAB*] 10 mg PO BID 08/19/15 11/19/16 History Atorvastatin* [Lipitor*] 40 mg PO DAILY 09/29/16 11/19/16 History Chlorthalidone 25 mg PO DAILY 09/29/16 11/19/16 History Diltiazem CD CAP* [Cardizem CD 240 mg PO DAILY 09/29/16 11/19/16 History CAP*] Insulin Lispro [Humalog Kwikpen] 14 unit SUBCUT BEDTIME 09/29/16 11/19/16 History Warfarin TAB(*) [Coumadin TAB(*)] 5 mg PO DAILY 09/29/16 11/19/16 History traZODone TAB* [Desyrel TAB*] 50 mg PO BEDTIME PRN 09/29/16 11/19/16 History Allergies: Allergies Allergy/AdvReac Type Severity Reaction Status Date / Time Codeine Allergy tongue Verified 11/11/16 06:23 swells Objective - Vital Signs Vital Signs: Vital Signs 11/21/16 11/21/16 11/21/16 11:16 15:37 19:56 Temperature 99.0 F 99.8 F 98.5 F Pulse Rate 82 78 71 Respiratory 16 18 17 Rate Blood Pressure 140/68 131/60 129/60 (mmHg) O2 Sat by Pulse 95 95 96 Oximetry 11/21/16 11/21/16 11/22/16 23:43 23:47 01:43 Temperature 98.7 F Pulse Rate 70 Respiratory 18 16 16 Rate Blood Pressure 132/61 (mmHg) O2 Sat by Pulse 96 Oximetry 11/22/16 11/22/16 11/22/16 03:24 04:37 07:52 Temperature 97.4 F Pulse Rate 69 Respiratory 18 16 16 Rate Blood Pressure 133/54 (mmHg) O2 Sat by Pulse 94 Oximetry - Intake and Output Intake and Output: Intake & Output 11/19/16 11/20/16 11/21/16 11/22/16 11:59 11:59 11:59 11:59 Intake Total 1000 2583 2985 1160 Output Total 1700 2500 1974 320 Balance -365 70 2133 -2040 Weight 201 lb 9.6 oz Intake: IV Fluids 300 70 375 NS 20 70 375 IVPB 110 853 350 75 Vancomycin 535 250 Zosyn 110 318 100 75 Oral 590 1660 2300 710 Whole Blood 335 Output: Burgess 1700 2500 1974 3200 Other: Estimated Void Small # Bowel Movements 0 1 0 0 Estimated Stool Amount Large Large Medium # Voids 2 ADLs: Meal Record Start: 11/19/16 01: 20 Freq: DAILY@0900,1400,1800 Status: Active Created 11/19/16 01:19 System (Rec: 11/19/16 01:19 System MED-M06) Document 11/19/16 09:00 [id number] (Rec: 11/19/16 12:39 [id number] MED-C11) Document 11/19/16 14:00 [id number] (Rec: 11/19/16 16:06 [id number] MED-C11) Document 11/19/16 17:53 [id number] (Rec: 11/19/16 17:54 [id number] MED-C04) Document 11/20/16 09:00 [id number] (Rec: 11/20/16 12:32 [id number] MED-C11) Document 11/20/16 13:43 [id number] (Rec: 11/20/16 13:44 [id number] MED-C11) Document 11/20/16 18:00 [id number] (Rec: 11/20/16 18:25 [id number] MED-C11) Document 11/21/16 08:34 [id number] (Rec: 11/21/16 08:34 [id number] MED-C11) Document 11/21/16 14:00 [id number] (Rec: 11/21/16 14:00 [id number] MED-C11) Document 11/21/16 18:00 [id number] (Rec: 11/21/16 23:35 [id number] MED-C11) Intake and Output Start: 11/19/16 01: 20 Freq: DAILY@0600,1400,2200 Status: Active Created 11/19/16 01:19 System (Rec: 11/19/16 01:19 System MED-M06) Document 11/19/16 05:48 [id number] (Rec: 11/19/16 05:51 [id number] MEDL-C01) Document 11/19/16 14:00 [id number] (Rec: 11/19/16 16:07 [id number] MED-C11) Document 11/20/16 03:27 [id number] (Rec: 11/20/16 03:27 [id number] MED-C42) Document 11/20/16 11:12 [id number] (Rec: 11/20/16 11:13 [id number] MED-C04) Document 11/20/16 14:00 [id number] (Rec: 11/20/16 15:12 [id number] MED-C04) Document 11/20/16 15:25 [id number] (Rec: 11/20/16 15:25 [id number] MED-C04) Document 11/20/16 20:52 [id number] (Rec: 11/20/16 20:53 [id number] MED-C11) Document 11/21/16 06:00 [id number] (Rec: 11/21/16 06:30 [id number] MEDL-C02) Document 11/21/16 10:02 [id number] (Rec: 11/21/16 10:03 [id number] MED-C11) Document 11/21/16 22:00 [id number] (Rec: 11/21/16 23:36 [id number] MED-C11) Document 11/22/16 05:32 [id number] (Rec: 11/22/16 05:32 [id number] MED-C42) - Physical Exam General: No Cyanosis, Yes Anemia, No Jaundice, No Clubbing Lungs and Chest: Yes: Chest Expansion Full, Chest Expansion Symetrica, Percussion Note Resonant, Vessicular Breath Sounds. No: Crackles, Wheezes Heart Rate and Rhythm: Regular JVP: Not Elevated Additional Cardiovascular: Yes: Normal Heart Sounds. No: Heart Murmur, Pedal Edema Abdominal Exam: Yes: Soft, Bowel Sounds Present. No: Distention, Abdominal Tenderness Results - Results Lab Results: Laboratory Results - last 24 hr 11/21/16 11/21/16 11/21/16 11:55 17:18 20:59 WBC RBC Hgb Hct MCV MCH MCHC RDW Plt Count MPV Neut % (Auto) Lymph % (Auto) [place] % (Auto) Eos % (Auto) Baso % (Auto) Absolute Neuts (auto) Absolute Lymphs (auto) Absolute Monos (auto) Absolute Eos (auto) Absolute Basos (auto) Absolute Nucleated RBC Nucleated RBC % INR (Anticoag Therapy) POC Glucose (mg/dL) 167 H 212 H 155 H 11/22/16 11/22/16 11/22/16 05:40 05:40 07:33 WBC 10.5 RBC 3.12 L Hgb 8.1 L Hct 25 L MCV 79 L MCH 26 L MCHC 33 RDW 19 H Plt Count 381 MPV 7 L Neut % (Auto) 85.0 H Lymph % (Auto) 6.1 L [place] % (Auto) 7.8 Eos % (Auto) 0.6 Baso % (Auto) 0.5 Absolute Neuts (auto) 8.9 H Absolute Lymphs (auto) 0.6 L Absolute Monos (auto) 0.8 Absolute Eos (auto) 0.1 Absolute Basos (auto) 0.1 Absolute Nucleated RBC 0 Nucleated RBC % 0 INR (Anticoag Therapy) 1.52 H POC Glucose (mg/dL) 94 Assessment - Problem List Assessment: Patient Problems Anemia (Acute) Osteomyelitis of symphysis pubis (Acute) Restless legs (Acute) Urinary tract infection (Acute) Anticoagulation goal of INR 2 to 3 (Chronic) CKD (chronic kidney disease) stage 3, GFR 30-59 ml/min (Chronic) Chronic indwelling Burgess catheter (Chronic) Diabetes mellitus with insulin therapy (Chronic) History of osteomyelitis (Chronic) Hyperlipidemia (Chronic) Hypertension (Chronic) Lumbar spinal stenosis (Chronic) Nephrolithiasis (Chronic) Paroxysmal atrial fibrillation (Chronic) S/P laminectomy (Chronic) Type 2 diabetes mellitus (Chronic) Plan: Osteomyelitis of symphysis pubis (Acute) I have reviewed Dr. Sanchez's recommendations both in a phone conversation and reading his report. He is discussing the possibility of a fistula from his bladder with Dr. Cevallos. He recommends continuing group home antibacterial treatment - we will likely change him to a once daily antibacterial prior to discharge Anemia (Acute) Ongoing - he has iron deficiency Restless legs (Acute) improved Urinary tract infection (Acute) Yeast - improving Anticoagulation goal of INR 2 to 3 (Chronic) we have resumed warfarin CKD (chronic kidney disease) stage 3, GFR 30-59 ml/min (Chronic) secondary diagnosis Chronic indwelling Burgess catheter (Chronic) Diabetes mellitus with insulin therapy (Chronic) reasonable glycemic control History of osteomyelitis (Chronic) Hyperlipidemia (Chronic) secondary diagnosis Hypertension (Chronic) secondary diagnosis Lumbar spinal stenosis (Chronic) secondary diagnosis Nephrolithiasis (Chronic) secondary diagnosis Paroxysmal atrial fibrillation (Chronic) He is in sinus rhythm S/P laminectomy (Chronic) Type 2 diabetes mellitus (Chronic)secondary diagnosis I spoke with the patient and he agrees to this management plan. His family will be able to help out with home IV antibacterials. We need to protect him from decubitus ulcerateion.
--- NOTE | 2016-11-22 16:06 | PN ---
Progress Note - Progress Note SOAP: Subjective: DOS: 11/22/16 CC: osteomyelitis HPI:70 year old man recently treated for infected pubic symphysis with IV antibiotics, drain, then augmentin; admitted here with malaise, fever, bilateral groin pain. He feels better over last couple of days, drain site is healed. No fever, rash, or diarrhea. No pain with weight bearing, some pain with hep movement. Objective: [] Vital Signs Temp 36.8 C 11/22/16 11:46 Pulse 72 11/22/16 11:46 Resp 16 11/22/16 11:46 BP 133/64 11/22/16 11:46 Pulse Ox 97 11/22/16 11:46 Intake & Output 11/21/16 11/22/16 11/22/16 18:59 06:59 18:59 Intake Total 1110 690 610 Output Total 500 3200 Balance 610 -2510 610 Intake: IV Fluids 375 120 NS 375 20 Zosyn 100 IVPB 75 Zosyn 75 Oral 1110 240 490 Output: Jarrell 500 3200 Other: Estimated Void Small # Bowel Movements 1 0 Estimated Stool Amount Medium Gen:Awake, no distress Neuro: Ox3, follows all commands HEENT:PERRL, MMM Neck:supple Heart:RRR no murmur Lungs:CTA BL Abd:+BS NTND soft Skin: No rash MSK: no spine tenderness : jarrell catheter Assessment: 1. septic pubic symphysis, pelvic osteomyelitis (acute) and abscess; polymicrobial 2. bladder fistula 3. ureteral stricture with chronic jarrell and ureteral stents 4. hx prostate cancer Plan: 1. will change antibiotics to ceftriaxone and flagyl and plan on 4-6 weeks of IV treatment 2. Will ask IR to evaluate to aspirate the collection and leave a drain if needed
[2016-11-22] MEDS: metroNIDAZOLE IV 500 MG/100ML* 500 MG/100 ML BAG IVPB SCH (17:59)
[2016-11-22] MEDS: traZODone TAB* 50 MG TAB PO SCH (20:59)
[2016-11-22] MEDS: Gabapentin CAP(*) 100 MG PO SCH (20:59)
[2016-11-22] MEDS: Insulin GLARGINE(*) 1 UNITS UNIT SUBCUT SCH (21:01)
[2016-11-23] MEDS: Heparin VIAL(*) 5000 UNITS/ML VIAL (FIVE THOUSAND) SUBCUT SCH ×3 (05:12→21:38)
[2016-11-23] MEDS: metroNIDAZOLE IV 500 MG/100ML* 500 MG/100 ML BAG IVPB SCH ×2 (05:13→18:24)
[2016-11-23 05:36] LABS: Hematocrit 24 % (42-52); Hemoglobin 7.7 g/dl (14.0-18.0); Mean Corpuscular HGB Conc 32 g/dl (31-36); Mean Corpuscular Hemoglobin 25 pg (27-31); Mean Corpuscular Volume 80 fL (80-94); Mean Platelet Volume 7 um3 (7.4-10.4); Red Blood Count 3.05 10^6/ul (4.0-5.4); Red Cell Distribution Width 20 % (10.5-15); White Blood Count 8.8 10^3/ul (3.5-10.8)
[2016-11-23 05:51] LABS: BUN/Creatinine Ratio 20.2 (8-20); C Reactive Protein 81.46 mg/L (< 5.00); Calcium 8.6 mg/dL (8.6-10.3); EGFR African American 48.7 (>60); EGFR Non-African American 37.9 (>60); Potassium 3.9 mmol/L (3.5-5.0)
--- NOTE | 2016-11-23 07:54 | PN ---
Subjective - Subjective Reason for Note: Progress Note History: [place], he became tired and short of breath at the end. He continues to have pain in his groin - more on the right than left, when he adducts his legs. Otherwise, he is tolerating the pain. He has had no adverse effects of the antibiotics. 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 (Acute) M86.9 Restless legs (Acute) Urinary tract infection (Acute) Anticoagulation goal of INR 2 to 3 (Chronic) Z51.81, Z79.01 CKD (chronic kidney disease) stage 3, GFR 30-59 ml/min (Chronic) N18.3 Chronic indwelling Burgess catheter (Chronic) Z92.89 Diabetes mellitus with insulin therapy (Chronic) E11.9, Z79.4 History of osteomyelitis (Chronic) Z87.39 Hyperlipidemia (Chronic) E78.5 Hypertension (Chronic) I10 Lumbar spinal stenosis (Chronic) M48.06 Nephrolithiasis (Chronic) N20.0 Paroxysmal atrial fibrillation (Chronic) I48.0 S/P laminectomy (Chronic) Z98.890 Type 2 diabetes mellitus (Chronic) Current Medications: Current Medications Acetaminophen (Tylenol Tab*) 650 mg PO Q4H PRN PRN Reason: PAIN - MILD Atorvastatin Calcium (Lipitor*) 40 mg PO DAILY [facility] Last Admin: 11/22/16 07:55 Dose: 40 mg Dextrose (D50w Syringe 50 Ml*) 12.5 gm IV PUSH .FOR FS < 60 - SS PRN PRN Reason: FS < 60 Diltiazem HCl (Cardizem Cd Cap*) 240 mg PO DAILY [facility] Last Admin: 11/22/16 07:55 Dose: 240 mg Ferrous Sulfate (Ferrous Sulfate Tab*) 325 mg PO DAILY [facility] Last Admin: 11/22/16 07:55 Dose: 325 mg Gabapentin (Neurontin Cap(*)) 100 mg PO BEDTIME [facility] Last Admin: 11/22/16 20:59 Dose: 100 mg Glipizide (Glucotrol Tab*) 10 mg PO 0800,1700 [facility] Last Admin: 11/22/16 17:24 Dose: 10 mg Heparin Sodium (Porcine) (Heparin Vial(*)) 5,000 units SUBCUT Q8HR [facility] Last Admin: 11/23/16 05:12 Dose: 5,000 units Heparin Sodium (Porcine) (Heparin Flush Picc/Ml/Cvc(*)) 1 - 3 ml FLUSH 0600, 1800 [facility] PRN Reason: Protocol Last Admin: 11/23/16 05:13 Dose: 1 ml Ceftriaxone Sodium 2 gm/ (Sodium Chloride) 100 mls @ 200 mls/hr IVPB Q24H [facility] Last Admin: 11/22/16 17:25 Dose: 200 mls/hr Metronidazole/Sodium Chloride (Flagyl 500 Mg Ivpb*) 500 mg in 100 mls @ 100 mls /hr IVPB Q12H [facility] Last Admin: 11/23/16 05:13 Dose: 100 mls/hr Insulin Glargine (Lantus(*)) 14 units SUBCUT Q24H [facility] Last Admin: 11/22/16 21:01 Dose: 14 unit Insulin Human Lispro (Humalog*) 0 units SUBCUT ACHS [facility] PRN Reason: Protocol Last Admin: 11/22/16 21:00 Dose: 1 units Omeprazole (Prilosec Cap*) 20 mg PO DAILY [facility] Last Admin: 11/22/16 07:55 Dose: 20 mg Pramipexole Dihydrochloride (Mirapex Tab*) 0.125 mg PO TID [facility] Last Admin: 11/22/16 21:05 Dose: 0.125 mg Tramadol HCl (Ultram*) 50 mg PO Q6H PRN PRN Reason: PAIN - MODERATE Last Admin: 11/22/16 21:14 Dose: 50 mg Tramadol HCl (Ultram*) 100 mg PO Q6H PRN PRN Reason: PAIN - SEVERE Last Admin: 11/22/16 07:52 Dose: 100 mg Trazodone HCl (Desyrel Tab*) 50 mg PO BEDTIME [facility] Last Admin: 11/22/16 20:59 Dose: 50 mg Home Medications: Home Medications Medication Instructions Recorded Confirmed Type Omeprazole CAP* [Prilosec CAP* 20 20 mg PO DAILY 06/19/12 11/19/16 History MG] glipiZIDE TAB* [Glucotrol TAB*] 10 mg PO BID 08/19/15 11/19/16 History Atorvastatin* [Lipitor*] 40 mg PO DAILY 09/29/16 11/19/16 History Chlorthalidone 25 mg PO DAILY 09/29/16 11/19/16 History Diltiazem CD CAP* [Cardizem CD 240 mg PO DAILY 09/29/16 11/19/16 History CAP*] Insulin Lispro [Humalog Kwikpen] 14 unit SUBCUT BEDTIME 09/29/16 11/19/16 History Warfarin TAB(*) [Coumadin TAB(*)] 5 mg PO DAILY 09/29/16 11/19/16 History traZODone TAB* [Desyrel TAB*] 50 mg PO BEDTIME PRN 09/29/16 11/19/16 History Allergies: Allergies Allergy/AdvReac Type Severity Reaction Status Date / Time Codeine Allergy tongue Verified 11/11/16 06:23 chris Objective - Vital Signs Vital Signs: Vital Signs 11/22/16 11/22/16 11/22/16 07:48 07:52 08:00 Temperature 97.7 F Pulse Rate 66 Respiratory 16 16 16 Rate Blood Pressure 139/64 (mmHg) O2 Sat by Pulse 97 Oximetry 11/22/16 11/22/16 11/22/16 09:52 11:46 15:50 Temperature 98.3 F 98.2 F Pulse Rate 72 73 Respiratory 16 16 18 Rate Blood Pressure 133/64 122/56 (mmHg) O2 Sat by Pulse 97 98 Oximetry 11/22/16 11/22/16 11/22/16 19:43 20:00 20:59 Temperature 98.5 F Pulse Rate 73 Respiratory 16 16 18 Rate Blood Pressure 122/61 (mmHg) O2 Sat by Pulse 94 Oximetry 11/22/16 11/22/16 11/22/16 21:14 22:29 23:14 Temperature Pulse Rate Respiratory 0 14 16 Rate Blood Pressure (mmHg) O2 Sat by Pulse Oximetry 11/22/16 11/23/16 11/23/16 23:44 00:59 01:14 Temperature 98.1 F Pulse Rate 70 Respiratory 16 12 14 Rate Blood Pressure 124/66 (mmHg) O2 Sat by Pulse 97 Oximetry 11/23/16 11/23/16 02:59 04:17 Temperature 98.3 F Pulse Rate 68 Respiratory 14 16 Rate Blood Pressure 129/63 (mmHg) O2 Sat by Pulse 96 Oximetry - Intake and Output Intake and Output: Intake & Output 11/20/16 11/21/16 11/22/16 11/23/16 11:59 11:59 11:59 11:59 Intake Total 2583 2985 1510 1059 Output Total 2500 1974 320 1300 Balance 83 1010 -1690 -241 Intake: IV Fluids 70 375 439 NS 70 375 39 Zosyn 400 IVPB 853 350 75 Vancomycin 535 250 Zosyn 318 100 75 Oral 1660 2300 1060 620 Whole Blood 335 Output: Burgess 2500 1974 3200 1300 Other: Estimated Void Small # Bowel Movements 1 0 0 1 Estimated Stool Amount Large Large Medium Small # Voids 2 ADLs: Meal Record Start: 11/19/16 01: 20 Freq: DAILY@0900,1400,1800 Status: Active Created 11/19/16 01:19 System (Rec: 11/19/16 01:19 System MED-M06) Document 11/19/16 09:00 [id number] (Rec: 11/19/16 12:39 [id number] MED-C11) Document 11/19/16 14:00 [id number] (Rec: 11/19/16 16:06 [id number] MED-C11) Document 11/19/16 17:53 [id number] (Rec: 11/19/16 17:54 [id number] MED-C04) Document 11/20/16 09:00 [id number] (Rec: 11/20/16 12:32 [id number] MED-C11) Document 11/20/16 13:43 [id number] (Rec: 11/20/16 13:44 [id number] MED-C11) Document 11/20/16 18:00 [id number] (Rec: 11/20/16 18:25 [id number] MED-C11) Document 11/21/16 08:34 [id number] (Rec: 11/21/16 08:34 [id number] MED-C11) Document 11/21/16 14:00 [id number] (Rec: 11/21/16 14:00 [id number] MED-C11) Document 11/21/16 18:00 [id number] (Rec: 11/21/16 23:35 [id number] MED-C11) Document 11/22/16 09:00 [id number] (Rec: 11/22/16 10:27 [id number] MED-C09) Document 11/22/16 13:58 [id number] (Rec: 11/22/16 13:59 [id number] MED-L08) Document 11/22/16 18:00 [id number] (Rec: 11/22/16 19:20 [id number] MED-C16) ADLs: Meal Record Start: 11/22/16 20: 55 Freq: Status: Active Created 11/22/16 20:55 [id number] (Rec: 11/22/16 20:55 [id number] MED-C09) Document 11/22/16 20:56 [id number] (Rec: 11/22/16 20:56 [id number] MED-C09) Intake and Output Start: 11/19/16 01: 20 Freq: DAILY@0600,1400,2200 Status: Active Created 11/19/16 01:19 System (Rec: 11/19/16 01:19 System MED-M06) Document 11/19/16 05:48 [id number] (Rec: 11/19/16 05:51 [id number] MEDL-C01) Document 11/19/16 14:00 [id number] (Rec: 11/19/16 16:07 [id number] MED-C11) Document 11/20/16 03:27 [id number] (Rec: 11/20/16 03:27 [id number] MED-C42) Document 11/20/16 11:12 [id number] (Rec: 11/20/16 11:13 [id number] MED-C04) Document 11/20/16 14:00 [id number] (Rec: 11/20/16 15:12 [id number] MED-C04) Document 11/20/16 15:25 [id number] (Rec: 11/20/16 15:25 [id number] MED-C04) Document 11/20/16 20:52 [id number] (Rec: 11/20/16 20:53 [id number] MED-C11) Document 11/21/16 06:00 [id number] (Rec: 11/21/16 06:30 [id number] MEDL-C02) Document 11/21/16 10:02 [id number] (Rec: 11/21/16 10:03 [id number] MED-C11) Document 11/21/16 22:00 [id number] (Rec: 11/21/16 23:36 [id number] MED-C11) Document 11/22/16 05:32 [id number] (Rec: 11/22/16 05:32 [id number] MED-C42) Document 11/22/16 14:00 [id number] (Rec: 11/22/16 14:01 [id number] MED-L08) Document 11/22/16 22:00 [id number] (Rec: 11/22/16 22:31 [id number] MED-C09) Document 11/23/16 05:07 [id number] (Rec: 11/23/16 05:17 [id number] MED-C42) - Physical Exam General Physical Exam Comment: Tenderness just to the right of the pubis - medial to the groin area. No swelling General: No Cyanosis, Yes Anemia, No Jaundice, No Clubbing Lungs and Chest: Yes: Chest Expansion Full, Chest Expansion Symetrica, Percussion Note Resonant, Vessicular Breath Sounds. No: Crackles, Wheezes Heart Rate and Rhythm: Regular Additional Cardiovascular: Yes: Normal Heart Sounds. No: Heart Murmur, Pedal Edema Abdominal Exam: Yes: Soft, Bowel Sounds Present. No: Distention, Abdominal Tenderness Results - Results Lab Results: Laboratory Results - last 24 hr 11/19/16 11/22/16 11/22/16 07:33 07:33 11:40 WBC RBC Hgb Hct MCV MCH MCHC RDW Plt Count MPV Neut % (Auto) Lymph % (Auto) Saline % (Auto) Eos % (Auto) Baso % (Auto) Absolute Neuts (auto) Absolute Lymphs (auto) Absolute Monos (auto) Absolute Eos (auto) Absolute Basos (auto) Absolute Nucleated RBC Nucleated RBC % INR (Anticoag Therapy) Sodium Potassium Chloride Carbon Dioxide Anion Gap BUN Creatinine Est GFR ( Amer) Est GFR (Non-Af Amer) BUN/Creatinine Ratio Glucose POC Glucose (mg/dL) 94 173 H Calcium Erythropoietin 9.8 C-Reactive Protein 11/22/16 11/22/16 11/23/16 16:39 20:33 05:20 WBC RBC Hgb Hct MCV MCH MCHC RDW Plt Count MPV Neut % (Auto) Lymph % (Auto) Saline % (Auto) Eos % (Auto) Baso % (Auto) Absolute Neuts (auto) Absolute Lymphs (auto) Absolute Monos (auto) Absolute Eos (auto) Absolute Basos (auto) Absolute Nucleated RBC Nucleated RBC % INR (Anticoag Therapy) Sodium 135 Potassium 3.9 Chloride 105 Carbon Dioxide 23 Anion Gap 7 BUN 36 H Creatinine 1.78 H Est GFR ( Amer) 48.7 Est GFR (Non-Af Amer) 37.9 BUN/Creatinine Ratio 20.2 H Glucose 90 POC Glucose (mg/dL) 160 H 138 H Calcium 8.6 Erythropoietin C-Reactive Protein 81.46 H 11/23/16 11/23/16 05:20 05:20 WBC 8.8 RBC 3.05 L Hgb 7.7 L Hct 24 L MCV 80 MCH 25 L MCHC 32 RDW 20 H Plt Count 380 MPV 7 L Neut % (Auto) 80.3 Lymph % (Auto) 8.6 L Saline % (Auto) 8.3 Eos % (Auto) 1.9 Baso % (Auto) 0.9 Absolute Neuts (auto) 7.0 Absolute Lymphs (auto) 0.8 L Absolute Monos (auto) 0.7 Absolute Eos (auto) 0.2 Absolute Basos (auto) 0.1 Absolute Nucleated RBC 0 Nucleated RBC % 0 INR (Anticoag Therapy) 1.37 H Sodium Potassium Chloride Carbon Dioxide Anion Gap BUN Creatinine Est GFR ( Amer) Est GFR (Non-Af Amer) BUN/Creatinine Ratio Glucose POC Glucose (mg/dL) Calcium Erythropoietin C-Reactive Protein Assessment - Problem List Assessment: Patient Problems Anemia (Acute) Bladder fistula (Acute) Osteomyelitis of symphysis pubis (Acute) Restless legs (Acute) Urinary tract infection (Acute) Anticoagulation goal of INR 2 to 3 (Chronic) CKD (chronic kidney disease) stage 3, GFR 30-59 ml/min (Chronic) Chronic indwelling Burgess catheter (Chronic) Diabetes mellitus with insulin therapy (Chronic) History of osteomyelitis (Chronic) Hyperlipidemia (Chronic) Hypertension (Chronic) Lumbar spinal stenosis (Chronic) Nephrolithiasis (Chronic) Paroxysmal atrial fibrillation (Chronic) S/P laminectomy (Chronic) Type 2 diabetes mellitus (Chronic) Plan: Osteomyelitis of symphysis pubis (Acute) I discussed the management of this osteomyelitis and surrounding inflammatory material/abscess. I agree with Dr. Sanchez we should attempt to drain this to enable better antibiotic access. It is an open question as to whether there is an abscess that can be drained, or whether open surgical debridement would be a more appropriate modality. His INR is not near the therapeutic range. I think we will attempt a drain using the skills of interventional radiology and then consider a more surgical approach should this not work. Anemia (Acute) His erythropoietin is present. He is anemic. I will give him parenteral iron and see if this is sufficient. 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 Cevallos's report suggests a fistula - this may explain how the hematoma was infected in the first place - but raises a larger concern about reinfection Restless legs (Acute) stable Urinary tract infection (Acute) inactive Anticoagulation goal of INR 2 to 3 (Chronic) I will hold warfarin - he has remained in sinus rhythm CKD (chronic kidney disease) stage 3, GFR 30-59 ml/min (Chronic) Chronic indwelling Burgess catheter (Chronic) ongoing Diabetes mellitus with insulin therapy (Chronic)good control History of osteomyelitis (Chronic) Hyperlipidemia (Chronic) continue treatment Hypertension (Chronic) stable Lumbar spinal stenosis (Chronic) Nephrolithiasis (Chronic) secondary diagnosis Paroxysmal atrial fibrillation (Chronic) sinus rhythm S/P laminectomy (Chronic) I spoke to the patient and his sister. I explained the need for drainage of the abscess - he agrees to this. He also agrees to the iron infusion.
[2016-11-23] MEDS: Diltiazem CD CAP* 240 MG PO SCH (08:03)
[2016-11-23] MEDS: Omeprazole CAP* 20 MG PO SCH (08:03)
[2016-11-23] MEDS: Atorvastatin* 40 MG TAB PO SCH (08:04)
[2016-11-23] MEDS: Pramipexole TAB* 0.125 MG PO SCH ×3 (08:04→21:35)
[2016-11-23] MEDS: glipiZIDE TAB* 5 MG PO SCH ×2 (08:04→17:33)
[2016-11-23] MEDS: Ferrous Sulfate TAB* 325 MG PO SCH (08:04)
[2016-11-23] MEDS: Insulin LISPRO* 1 UNITS UNIT SUBCUT SCH ×4 (08:05→21:38)
[2016-11-23] MEDS: traMADol TAB* 50 MG PO PRN ×2 (08:14→21:41)
[2016-11-23] MEDS: Iron Sucrose* 200 MG in NS 0.9% 250 ML* 250 ML IVPB SCH (09:15)
--- NOTE | 2016-11-23 10:29 | PN ---
Progress Note - Progress Note SOAP: Subjective: DOS: 11/23/16 CC: osteomyelitis HPI:70 year old man recently treated for infected pubic symphysis with IV antibiotics, drain, then augmentin; admitted here with malaise, fever, bilateral groin pain. Continues to improve in terms of energy and pelvic pain. ROM not back to normal. Objective: [] Vital Signs Temp 36.8 C 11/23/16 04:17 Pulse 68 11/23/16 04:17 Resp 16 11/23/16 10:14 BP 129/63 11/23/16 04:17 Pulse Ox 96 11/23/16 04:17 Intake & Output 11/22/16 11/23/16 11/23/16 18:59 06:59 18:59 Intake Total 850 559 760 Output Total 1300 750 Balance 850 -741 10 Intake: IV Fluids 120 319 NS 20 19 Zosyn 100 300 Oral 730 240 760 Output: Jarrell 1300 750 Other: # Bowel Movements 1 0 Estimated Stool Amount Small Gen:Awake, no distress Neuro: Ox3, follows all commands HEENT:PERRL, MMM Neck:supple Heart:RRR no murmur Lungs:CTA BL Abd:+BS NTND soft Skin: No rash MSK: no spine tenderness : jarrell catheter Laboratory Results - last 24 hr 11/19/16 11/22/16 11/22/16 07:33 11:40 16:39 WBC RBC Hgb Hct MCV MCH MCHC RDW Plt Count MPV Neut % (Auto) Lymph % (Auto) [place]ing % (Auto) Eos % (Auto) Baso % (Auto) Absolute Neuts (auto) Absolute Lymphs (auto) Absolute Monos (auto) Absolute Eos (auto) Absolute Basos (auto) Absolute Nucleated RBC Nucleated RBC % INR (Anticoag Therapy) Sodium Potassium Chloride Carbon Dioxide Anion Gap BUN Creatinine Est GFR ( Amer) Est GFR (Non-Af Amer) BUN/Creatinine Ratio Glucose POC Glucose (mg/dL) 173 H 160 H Calcium Erythropoietin 9.8 C-Reactive Protein 11/22/16 11/23/16 11/23/16 20:33 05:20 05:20 WBC 8.8 RBC 3.05 L Hgb 7.7 L Hct 24 L MCV 80 MCH 25 L MCHC 32 RDW 20 H Plt Count 380 MPV 7 L Neut % (Auto) 80.3 Lymph % (Auto) 8.6 L Gooding % (Auto) 8.3 Eos % (Auto) 1.9 Baso % (Auto) 0.9 Absolute Neuts (auto) 7.0 Absolute Lymphs (auto) 0.8 L Absolute Monos (auto) 0.7 Absolute Eos (auto) 0.2 Absolute Basos (auto) 0.1 Absolute Nucleated RBC 0 Nucleated RBC % 0 INR (Anticoag Therapy) Sodium 135 Potassium 3.9 Chloride 105 Carbon Dioxide 23 Anion Gap 7 BUN 36 H Creatinine 1.78 H Est GFR ( Amer) 48.7 Est GFR (Non-Af Amer) 37.9 BUN/Creatinine Ratio 20.2 H Glucose 90 POC Glucose (mg/dL) 138 H Calcium 8.6 Erythropoietin C-Reactive Protein 81.46 H Assessment: 1. septic pubic symphysis, pelvic osteomyelitis (acute) and abscess; polymicrobial 2. bladder fistula 3. ureteral stricture with chronic jarrell and ureteral stents 4. hx prostate cancer 5. elevated CRP 6. candiduria; with rising CRP and presence of ureteral stents will plan to treat as infection Plan: 1. continue ceftriaxone and flagyl and plan on 4-6 weeks of IV treatment 2. Discussed with IR who will evaluate to aspirate the collection and leave a drain if needed 3. fluconazole 200 mg daily by mouth
[2016-11-23] MEDS: Fluconazole 100 MG TAB* TAB PO SCH (12:25)
[2016-11-23] MEDS ORDERED: fentaNYL* 50 MCG/ML 2 ML VIAL (100 MCG VIAL) ONE (12:27)
--- NOTE | 2016-11-23 13:58 | RAD ---
Indication: Pubic symphysis abscess. CT of the pelvis was obtained. Fluid collection pubic symphysis was localized. Using usual aseptic technique and lidocaine as a local anesthetic a 20-gauge needle was placed at the pubic symphysis. Approximately 3 mL of purulent fluid was aspirated. IMPRESSION: Successful CT guided localization and aspiration of an abscess with 3 mL of purulent fluid aspirated.
[2016-11-23] MEDS: traZODone TAB* 50 MG TAB PO SCH (21:37)
[2016-11-23] MEDS: Gabapentin CAP(*) 100 MG PO SCH (21:37)
[2016-11-23] MEDS: Atorvastatin* 20 MG TAB PO SCH (21:37)
[2016-11-23] MEDS: Insulin GLARGINE(*) 1 UNITS UNIT SUBCUT SCH (21:38)
[2016-11-24] MEDS: Heparin VIAL(*) 5000 UNITS/ML VIAL (FIVE THOUSAND) SUBCUT SCH ×3 (05:41→21:50)
[2016-11-24] MEDS: metroNIDAZOLE IV 500 MG/100ML* 500 MG/100 ML BAG IVPB SCH ×2 (05:41→17:27)
[2016-11-24] MEDS: Insulin LISPRO* 1 UNITS UNIT SUBCUT SCH ×4 (07:37→20:59)
[2016-11-24] MEDS: Diltiazem CD CAP* 240 MG PO SCH (08:16)
[2016-11-24] MEDS: Ferrous Sulfate TAB* 325 MG PO SCH (08:16)
[2016-11-24] MEDS: Fluconazole 100 MG TAB* TAB PO SCH (08:16)
[2016-11-24] MEDS: Omeprazole CAP* 20 MG PO SCH (08:16)
[2016-11-24] MEDS: glipiZIDE TAB* 5 MG PO SCH ×2 (08:17→17:28)
[2016-11-24] MEDS: Pramipexole TAB* 0.125 MG PO SCH ×3 (08:17→21:01)
--- NOTE | 2016-11-24 09:19 | PN ---
Subjective - Subjective Reason for Note: Progress Note History: He tolerated aspiration of the pubic area abscess yesterday. He is walking with a walker. The pain bothers him while walking and also when adducting his legs. He has had no fevers or sweats. His appetite is good. He has no problems from either the IV antibacterials or iron infusion 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 (Acute) M86.9 Restless legs (Acute) Urinary tract infection (Acute) Anticoagulation goal of INR 2 to 3 (Chronic) Z51.81, Z79.01 CKD (chronic kidney disease) stage 3, GFR 30-59 ml/min (Chronic) N18.3 Chronic indwelling Burgess catheter (Chronic) Z92.89 Diabetes mellitus with insulin therapy (Chronic) E11.9, Z79.4 History of osteomyelitis (Chronic) Z87.39 Hyperlipidemia (Chronic) E78.5 Hypertension (Chronic) I10 Lumbar spinal stenosis (Chronic) M48.06 Nephrolithiasis (Chronic) N20.0 Paroxysmal atrial fibrillation (Chronic) I48.0 S/P laminectomy (Chronic) Z98.890 Type 2 diabetes mellitus (Chronic) Current Medications: Current Medications Acetaminophen (Tylenol Tab*) 650 mg PO Q4H PRN PRN Reason: PAIN - MILD Atorvastatin Calcium (Lipitor*) 20 mg PO 2100 [facility] Last Admin: 11/23/16 21:37 Dose: 20 mg Dextrose (D50w Syringe 50 Ml*) 12.5 gm IV PUSH .FOR FS < 60 - SS PRN PRN Reason: FS < 60 Diltiazem HCl (Cardizem Cd Cap*) 240 mg PO DAILY [facility] Last Admin: 11/24/16 08:16 Dose: 240 mg Ferrous Sulfate (Ferrous Sulfate Tab*) 325 mg PO DAILY [facility] Last Admin: 11/24/16 08:16 Dose: 325 mg Fluconazole (Diflucan 100 Mg Tab*) 200 mg PO DAILY [facility] Last Admin: 11/24/16 08:16 Dose: 200 mg Gabapentin (Neurontin Cap(*)) 100 mg PO BEDTIME [facility] Last Admin: 11/23/16 21:37 Dose: 100 mg Glipizide (Glucotrol Tab*) 10 mg PO BID WITH MEALS [facility] Last Admin: 11/24/16 08:17 Dose: 10 mg Heparin Sodium (Porcine) (Heparin Vial(*)) 5,000 units SUBCUT Q8HR [facility] Last Admin: 11/24/16 05:41 Dose: 5,000 units Heparin Sodium (Porcine) (Heparin Flush Picc/Ml/Cvc(*)) 1 - 3 ml FLUSH 0600, 1800 [facility] PRN Reason: Protocol Last Admin: 11/24/16 08:15 Dose: Not Given Ceftriaxone Sodium 2 gm/ (Sodium Chloride) 100 mls @ 200 mls/hr IVPB Q24H [facility] Last Admin: 11/23/16 17:34 Dose: 200 mls/hr Metronidazole/Sodium Chloride (Flagyl 500 Mg Ivpb*) 500 mg in 100 mls @ 100 mls /hr IVPB Q12H [facility] Last Admin: 11/24/16 05:41 Dose: 100 mls/hr Iron Sucrose 200 mg/ Sodium (Chloride) 260 mls @ 260 mls/hr IVPB DAILY [facility] Stop: 11/27/16 10:00 Last Admin: 11/23/16 09:15 Dose: 260 mls/hr Insulin Glargine (Lantus(*)) 14 units SUBCUT Q24H [facility] Last Admin: 11/23/16 21:38 Dose: 14 unit Insulin Human Lispro (Humalog*) 0 units SUBCUT ACHS [facility] PRN Reason: Protocol Last Admin: 11/24/16 07:37 Dose: Not Given Omeprazole (Prilosec Cap*) 20 mg PO DAILY [facility] Last Admin: 11/24/16 08:16 Dose: 20 mg Pramipexole Dihydrochloride (Mirapex Tab*) 0.125 mg PO TID [facility] Last Admin: 11/24/16 08:17 Dose: 0.125 mg Tramadol HCl (Ultram*) 50 mg PO Q6H PRN PRN Reason: PAIN - MODERATE Last Admin: 11/23/16 21:41 Dose: 50 mg Tramadol HCl (Ultram*) 100 mg PO Q6H PRN PRN Reason: PAIN - SEVERE Last Admin: 11/22/16 07:52 Dose: 100 mg Trazodone HCl (Desyrel Tab*) 50 mg PO BEDTIME [facility] Last Admin: 11/23/16 21:37 Dose: 50 mg Home Medications: Home Medications Medication Instructions Recorded Confirmed Type Omeprazole CAP* [Prilosec CAP* 20 20 mg PO DAILY 06/19/12 11/19/16 History MG] glipiZIDE TAB* [Glucotrol TAB*] 10 mg PO BID 08/19/15 11/19/16 History Atorvastatin* [Lipitor*] 40 mg PO DAILY 09/29/16 11/19/16 History Chlorthalidone 25 mg PO DAILY 09/29/16 11/19/16 History Diltiazem CD CAP* [Cardizem CD 240 mg PO DAILY 09/29/16 11/19/16 History CAP*] Insulin Lispro [Humalog Kwikpen] 14 unit SUBCUT BEDTIME 09/29/16 11/19/16 History Warfarin TAB(*) [Coumadin TAB(*)] 5 mg PO DAILY 09/29/16 11/19/16 History traZODone TAB* [Desyrel TAB*] 50 mg PO BEDTIME PRN 09/29/16 11/19/16 History Allergies: Allergies Allergy/AdvReac Type Severity Reaction Status Date / Time Codeine Allergy tongue Verified 11/11/16 06:23 chris Objective - Vital Signs Vital Signs: Vital Signs 11/23/16 11/23/16 11/23/16 10:14 11:00 13:41 Temperature 97.6 F 97.5 F Pulse Rate 79 79 Respiratory 16 16 Rate Blood Pressure 134/68 142/64 (mmHg) O2 Sat by Pulse 96 97 Oximetry 11/23/16 11/23/16 11/23/16 15:59 19:59 20:00 Temperature 97.5 F Pulse Rate 73 Respiratory 17 16 Rate Blood Pressure 130/61 (mmHg) O2 Sat by Pulse 94 Oximetry 11/23/16 11/23/16 11/23/16 21:37 21:41 23:29 Temperature 98.3 F Pulse Rate 65 Respiratory 18 18 12 Rate Blood Pressure 119/56 (mmHg) O2 Sat by Pulse 94 Oximetry 11/23/16 11/23/16 11/24/16 23:37 23:41 04:05 Temperature 98.4 F Pulse Rate 67 Respiratory 16 16 16 Rate Blood Pressure 139/55 (mmHg) O2 Sat by Pulse 94 Oximetry - Intake and Output Intake and Output: Intake & Output 11/21/16 11/22/16 11/23/16 11/24/16 11:59 11:59 11:59 11:59 Intake Total 2985 1510 1819 710 Output Total 1974 3199 2049 1835 Balance 4461 -9724 -231 -3442 Intake: IV Fluids 375 439 30 NS 375 39 30 Zosyn 400 IVPB 350 75 350 ABX - FLAGYL 100 NS 250 Vancomycin 250 Zosyn 100 75 Oral 2300 1060 1380 330 Whole Blood 335 Output: Burgess 1974 3199 2049 1835 Other: Estimated Void Small # Bowel Movements 0 0 0 0 Estimated Stool Amount Large Medium Small ADLs: Meal Record Start: 11/19/16 01: 20 Freq: DAILY@0900,1400,1800 Status: Active Created 11/19/16 01:19 System (Rec: 11/19/16 01:19 System MED-M06) Document 11/19/16 09:00 [id number] (Rec: 11/19/16 12:39 [id number] MED-C11) Document 11/19/16 14:00 [id number] (Rec: 11/19/16 16:06 [id number] MED-C11) Document 11/19/16 17:53 [id number] (Rec: 11/19/16 17:54 [id number] MED-C04) Document 11/20/16 09:00 FPY4165 (Rec: 11/20/16 12:32 [id number] MED-C11) Document 11/20/16 13:43 [id number] (Rec: 11/20/16 13:44 MYP7607 MED-C11) Document 11/20/16 18:00 TRP2230 (Rec: 11/20/16 18:25 JGX1869 MED-C11) Document 11/21/16 08:34 [id number] (Rec: 11/21/16 08:34 [id number] MED-C11) Document 11/21/16 14:00 [id number] (Rec: 11/21/16 14:00 SDS8428 MED-C11) Document 11/21/16 18:00 JZY1148 (Rec: 11/21/16 23:35 [id number] MED-C11) Document 11/22/16 09:00 [id number] (Rec: 11/22/16 10:27 WGW2046 MED-C09) Document 11/22/16 13:58 [id number] (Rec: 11/22/16 13:59 IOP2232 MED-L08) Document 11/22/16 18:00 UHJ1813 (Rec: 11/22/16 19:20 [id number] MED-C16) Document 11/23/16 09:00 [id number] (Rec: 11/23/16 09:35 SAR5191 MED-C09) Document 11/23/16 14:00 WHT0689 (Rec: 11/23/16 14:02 NZV8910 MED-C09) Document 11/24/16 09:00 YBC1775 (Rec: 11/24/16 09:13 [id number] MED-C11) ADLs: Meal Record Start: 11/22/16 20: 55 Freq: Status: Active Created 11/22/16 20:55 [id number] (Rec: 11/22/16 20:55 ZOD3632 MED-C09) Document 11/22/16 20:56 [id number] (Rec: 11/22/16 20:56 GKW2523 MED-C09) Intake and Output Start: 11/19/16 01: 20 Freq: DAILY@0600,1400,2200 Status: Active Created 11/19/16 01:19 System (Rec: 11/19/16 01:19 System MED-M06) Document 11/19/16 05:48 [id number] (Rec: 11/19/16 05:51 UKR6062 MEDL-C01) Document 11/19/16 14:00 AAS5599 (Rec: 11/19/16 16:07 [id number] MED-C11) Document 11/20/16 03:27 [id number] (Rec: 11/20/16 03:27 [id number] MED-C42) Document 11/20/16 11:12 [id number] (Rec: 11/20/16 11:13 JRS7769 MED-C04) Document 11/20/16 14:00 [id number] (Rec: 11/20/16 15:12 URY1835 MED-C04) Document 11/20/16 15:25 [id number] (Rec: 11/20/16 15:25 [id number] MED-C04) Document 11/20/16 20:52 FSS1323 (Rec: 11/20/16 20:53 PLD4588 MED-C11) Document 11/21/16 06:00 [id number] (Rec: 11/21/16 06:30 MOM1621 MEDL-C02) Document 11/21/16 10:02 JQU1937 (Rec: 11/21/16 10:03 [id number] MED-C11) Document 11/21/16 22:00 [id number] (Rec: 11/21/16 23:36 RGA4939 MED-C11) Document 11/22/16 05:32 [id number] (Rec: 11/22/16 05:32 [id number] MED-C42) Document 11/22/16 14:00 [id number] (Rec: 11/22/16 14:01 [id number] MED-L08) Document 11/22/16 22:00 XTB0108 (Rec: 11/22/16 22:31 TYR0399 MED-C09) Document 11/23/16 05:07 [id number] (Rec: 11/23/16 05:17 [id number] MED-C42) Document 11/23/16 09:36 ICM0729 (Rec: 11/23/16 09:37 [id number] MED-C09) Document 11/24/16 06:00 [id number] (Rec: 11/24/16 06:05 [id number] MEDL-C02) - Physical Exam General: No Cyanosis, Yes Anemia, No Jaundice, No Clubbing Lungs and Chest: Yes: Chest Expansion Full, Chest Expansion Symetrica, Percussion Note Resonant, Vessicular Breath Sounds. No: Crackles, Wheezes Heart Rate and Rhythm: Regular Additional Cardiovascular: Yes: Normal Heart Sounds. No: Heart Murmur, Pedal Edema Abdominal Exam: Yes: Soft, Bowel Sounds Present. No: Abdominal Mass, Abdominal Tenderness Results - Results Lab Results: Laboratory Results - last 24 hr 11/23/16 11/23/16 11/23/16 12:19 17:02 20:34 INR (Anticoag Therapy) POC Glucose (mg/dL) 118 H 144 H 130 H 11/24/16 11/24/16 05:55 07:22 INR (Anticoag Therapy) 1.26 H POC Glucose (mg/dL) 72 L Assessment - Problem List Assessment: Patient Problems Anemia (Acute) Bladder fistula (Acute) Osteomyelitis of symphysis pubis (Acute) Restless legs (Acute) Urinary tract infection (Acute) Anticoagulation goal of INR 2 to 3 (Chronic) CKD (chronic kidney disease) stage 3, GFR 30-59 ml/min (Chronic) Chronic indwelling Burgess catheter (Chronic) Diabetes mellitus with insulin therapy (Chronic) History of osteomyelitis (Chronic) Hyperlipidemia (Chronic) Hypertension (Chronic) Lumbar spinal stenosis (Chronic) Nephrolithiasis (Chronic) Paroxysmal atrial fibrillation (Chronic) S/P laminectomy (Chronic) Type 2 diabetes mellitus (Chronic) Plan: Osteomyelitis of symphysis pubis (Acute) He tolerated drainage of the collection of inflammatory tissue/abscess yesterday. I will recheck his CRP tomorrow and CBC. Bladder fistula (Acute) Per Dr. Cevallos Restless legs (Acute) Not bothering him Anemia (Acute) He is receiving 5 days of iron infusion Urinary tract infection (Acute) inactive Anticoagulation goal of INR 2 to 3 (Chronic) I will restart his warfarin for paroxysmal AF T2D - controlled I discussed the above with the patient
[2016-11-24] MEDS: Iron Sucrose* 200 MG in NS 0.9% 250 ML* 250 ML IVPB SCH (09:38)
[2016-11-24] MEDS: traMADol TAB* 50 MG PO PRN ×2 (10:38→21:02)
[2016-11-24] MEDS: Insulin GLARGINE(*) 1 UNITS UNIT SUBCUT SCH (20:58)
[2016-11-24] MEDS: Atorvastatin* 20 MG TAB PO SCH (20:59)
[2016-11-24] MEDS: Gabapentin CAP(*) 100 MG PO SCH (20:59)
[2016-11-24] MEDS: traZODone TAB* 50 MG TAB PO SCH (21:00)
[2016-11-25] MEDS: Heparin VIAL(*) 5000 UNITS/ML VIAL (FIVE THOUSAND) SUBCUT SCH ×3 (05:20→22:17)
[2016-11-25] MEDS: metroNIDAZOLE IV 500 MG/100ML* 500 MG/100 ML BAG IVPB SCH ×2 (05:20→17:39)
[2016-11-25 06:03] LABS: Hematocrit 25 % (42-52); Hemoglobin 8.1 g/dl (14.0-18.0); Mean Corpuscular HGB Conc 33 g/dl (31-36); Mean Corpuscular Hemoglobin 26 pg (27-31); Mean Corpuscular Volume 80 fL (80-94); Mean Platelet Volume 7 um3 (7.4-10.4); Red Blood Count 3.13 10^6/ul (4.0-5.4); Red Cell Distribution Width 19 % (10.5-15); White Blood Count 8.8 10^3/ul (3.5-10.8)
[2016-11-25 06:20] LABS: BUN/Creatinine Ratio 17.1 (8-20); Calcium 8.5 mg/dL (8.6-10.3); EGFR African American 58.4 (>60); EGFR Non-African American 45.4 (>60); Potassium 3.9 mmol/L (3.5-5.0)
--- NOTE | 2016-11-25 07:49 | PN ---
Subjective - Subjective Reason for Note: Progress Note History: He is improving. His FS was low this morning and there has been a trend in lower FS. He continues to have groin pain when he walks. He has had no sweats/ chills. The antibacterials are not causing him any adverse effects. 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 (Acute) M86.9 Restless legs (Acute) Urinary tract infection (Acute) Anticoagulation goal of INR 2 to 3 (Chronic) Z51.81, Z79.01 CKD (chronic kidney disease) stage 3, GFR 30-59 ml/min (Chronic) N18.3 Chronic indwelling Burgess catheter (Chronic) Z92.89 Diabetes mellitus with insulin therapy (Chronic) E11.9, Z79.4 History of osteomyelitis (Chronic) Z87.39 Hyperlipidemia (Chronic) E78.5 Hypertension (Chronic) I10 Lumbar spinal stenosis (Chronic) M48.06 Nephrolithiasis (Chronic) N20.0 Paroxysmal atrial fibrillation (Chronic) I48.0 S/P laminectomy (Chronic) Z98.890 Type 2 diabetes mellitus (Chronic) Current Medications: Current Medications Acetaminophen (Tylenol Tab*) 650 mg PO Q4H PRN PRN Reason: PAIN - MILD Atorvastatin Calcium (Lipitor*) 20 mg PO 2100 [facility] Last Admin: 11/24/16 20:59 Dose: 20 mg Dextrose (D50w Syringe 50 Ml*) 12.5 gm IV PUSH .FOR FS < 60 - SS PRN PRN Reason: FS < 60 Diltiazem HCl (Cardizem Cd Cap*) 240 mg PO DAILY [facility] Last Admin: 11/24/16 08:16 Dose: 240 mg Ferrous Sulfate (Ferrous Sulfate Tab*) 325 mg PO DAILY [facility] Last Admin: 11/24/16 08:16 Dose: 325 mg Fluconazole (Diflucan 100 Mg Tab*) 200 mg PO DAILY [facility] Last Admin: 11/24/16 08:16 Dose: 200 mg Gabapentin (Neurontin Cap(*)) 100 mg PO BEDTIME [facility] Last Admin: 11/24/16 20:59 Dose: 100 mg Glipizide (Glucotrol Tab*) 10 mg PO BID WITH MEALS [facility] Last Admin: 11/24/16 17:28 Dose: 10 mg Heparin Sodium (Porcine) (Heparin Vial(*)) 5,000 units SUBCUT Q8HR [facility] Last Admin: 11/25/16 05:20 Dose: 5,000 units Heparin Sodium (Porcine) (Heparin Flush Picc/Ml/Cvc(*)) 1 - 3 ml FLUSH 0800, 2000 [facility] PRN Reason: Protocol Last Admin: 11/24/16 19:24 Dose: 1 ml Ceftriaxone Sodium 2 gm/ (Sodium Chloride) 100 mls @ 200 mls/hr IVPB Q24H [facility] Last Admin: 11/24/16 16:31 Dose: 200 mls/hr Metronidazole/Sodium Chloride (Flagyl 500 Mg Ivpb*) 500 mg in 100 mls @ 100 mls /hr IVPB Q12H [facility] Last Admin: 11/25/16 05:20 Dose: 100 mls/hr Iron Sucrose 200 mg/ Sodium (Chloride) 260 mls @ 260 mls/hr IVPB DAILY [facility] Stop: 11/27/16 10:00 Last Admin: 11/24/16 09:38 Dose: 260 mls/hr Insulin Glargine (Lantus(*)) 14 units SUBCUT Q24H [facility] Last Admin: 11/24/16 20:58 Dose: 14 unit Insulin Human Lispro (Humalog*) 0 units SUBCUT ACHS [facility] PRN Reason: Protocol Last Admin: 11/24/16 20:59 Dose: 1 units Omeprazole (Prilosec Cap*) 20 mg PO DAILY [facility] Last Admin: 11/24/16 08:16 Dose: 20 mg Pramipexole Dihydrochloride (Mirapex Tab*) 0.125 mg PO TID [facility] Last Admin: 11/24/16 21:01 Dose: 0.125 mg Tramadol HCl (Ultram*) 50 mg PO Q6H PRN PRN Reason: PAIN - MODERATE Last Admin: 11/23/16 21:41 Dose: 50 mg Tramadol HCl (Ultram*) 100 mg PO Q6H PRN PRN Reason: PAIN - SEVERE Last Admin: 11/24/16 21:02 Dose: 100 mg Trazodone HCl (Desyrel Tab*) 50 mg PO BEDTIME [facility] Last Admin: 11/24/16 21:00 Dose: 50 mg Home Medications: Home Medications Medication Instructions Recorded Confirmed Type Omeprazole CAP* [Prilosec CAP* 20 20 mg PO DAILY 06/19/12 11/19/16 History MG] glipiZIDE TAB* [Glucotrol TAB*] 10 mg PO BID 08/19/15 11/19/16 History Atorvastatin* [Lipitor*] 40 mg PO DAILY 09/29/16 11/19/16 History Chlorthalidone 25 mg PO DAILY 09/29/16 11/19/16 History Diltiazem CD CAP* [Cardizem CD 240 mg PO DAILY 09/29/16 11/19/16 History CAP*] Insulin Lispro [Humalog Kwikpen] 14 unit SUBCUT BEDTIME 09/29/16 11/19/16 History Warfarin TAB(*) [Coumadin TAB(*)] 5 mg PO DAILY 09/29/16 11/19/16 History traZODone TAB* [Desyrel TAB*] 50 mg PO BEDTIME PRN 09/29/16 11/19/16 History Allergies: Allergies Allergy/AdvReac Type Severity Reaction Status Date / Time Codeine Allergy tongue Verified 11/11/16 06:23 chris Objective - Vital Signs Vital Signs: Vital Signs 11/24/16 11/24/16 11/24/16 08:00 08:16 10:38 Temperature 98.1 F Pulse Rate 85 Respiratory 18 20 Rate Blood Pressure 150/65 (mmHg) O2 Sat by Pulse 99 Oximetry 11/24/16 11/24/16 11/24/16 11:21 12:38 15:50 Temperature 97.4 F 98.2 F Pulse Rate 71 73 Respiratory 18 16 Rate Blood Pressure 131/61 120/48 (mmHg) O2 Sat by Pulse 96 95 Oximetry 11/24/16 11/24/16 11/24/16 19:35 20:00 20:59 Temperature 98.0 F Pulse Rate 71 Respiratory 16 18 18 Rate Blood Pressure 135/57 (mmHg) O2 Sat by Pulse 96 Oximetry 11/24/16 11/24/16 11/24/16 21:02 22:59 23:02 Temperature Pulse Rate Respiratory 18 18 16 Rate Blood Pressure (mmHg) O2 Sat by Pulse Oximetry 11/24/16 11/25/16 23:52 03:31 Temperature 97.4 F 97.3 F Pulse Rate 66 66 Respiratory 17 17 Rate Blood Pressure 120/56 130/55 (mmHg) O2 Sat by Pulse 96 93 Oximetry - Intake and Output Intake and Output: Intake & Output 11/22/16 11/23/16 11/24/16 11/25/16 11:59 11:59 11:59 11:59 Intake Total 1510 9631 214 4213 Output Total 3200 2049 1834 187 Balance -8645 -584 -5645 725 Intake: IV Fluids 375 439 30 50 ABX - FLAGYL 50 NS 375 39 30 Zosyn 400 IVPB 75 350 100 ABX - FLAGYL 100 100 NS 250 Zosyn 75 Medicated IV 260 iron sucrose 260 Oral 1060 3087 835 6090 Output: Burgess 3200 2049 1834 187 Other: Estimated Void Small # Bowel Movements 0 0 0 Estimated Stool Amount Medium Small ADLs: Meal Record Start: 11/19/16 01: 20 Freq: DAILY@0900,1400,1800 Status: Active Created 11/19/16 01:19 System (Rec: 11/19/16 01:19 System MED-M06) Document 11/19/16 09:00 [id number] (Rec: 11/19/16 12:39 [id number] MED-C11) Document 11/19/16 14:00 TVT0945 (Rec: 11/19/16 16:06 ZXT8400 MED-C11) Document 11/19/16 17:53 LXG8057 (Rec: 11/19/16 17:54 DSB0518 MED-C04) Document 11/20/16 09:00 XYN1948 (Rec: 11/20/16 12:32 CTY7834 MED-C11) Document 11/20/16 13:43 LLI9641 (Rec: 11/20/16 13:44 GPG6028 MED-C11) Document 11/20/16 18:00 BZI0134 (Rec: 11/20/16 18:25 CYA3282 MED-C11) Document 11/21/16 08:34 [id number] (Rec: 11/21/16 08:34 SQC1872 MED-C11) Document 11/21/16 14:00 FCT9554 (Rec: 11/21/16 14:00 LKB7388 MED-C11) Document 11/21/16 18:00 [id number] (Rec: 11/21/16 23:35 OAE4174 MED-C11) Document 11/22/16 09:00 PIP7469 (Rec: 11/22/16 10:27 ORZ6344 MED-C09) Document 11/22/16 13:58 PKS1855 (Rec: 11/22/16 13:59 QHQ9631 MED-L08) Document 11/22/16 18:00 NJR6976 (Rec: 11/22/16 19:20 XZO4823 MED-C16) Document 11/23/16 09:00 BAP4743 (Rec: 11/23/16 09:35 EVY2058 MED-C09) Document 11/23/16 14:00 LDF0332 (Rec: 11/23/16 14:02 GCR3504 MED-C09) Document 11/24/16 09:00 QHR5239 (Rec: 11/24/16 09:13 OYL3787 MED-C11) Document 11/24/16 13:39 XLX0750 (Rec: 11/24/16 13:41 WXZ0072 MED-C11) Document 11/24/16 17:32 YPT1826 (Rec: 11/24/16 17:33 PMX7514 MED-L07) ADLs: Meal Record Start: 11/22/16 20: 55 Freq: Status: Active Created 11/22/16 20:55 [id number] (Rec: 11/22/16 20:55 DDY3340 MED-C09) Document 11/22/16 20:56 [id number] (Rec: 11/22/16 20:56 XVR1152 MED-C09) Intake and Output Start: 11/19/16 01: 20 Freq: DAILY@0600,1400,2200 Status: Active Created 11/19/16 01:19 System (Rec: 11/19/16 01:19 System MED-M06) Document 11/19/16 05:48 [id number] (Rec: 11/19/16 05:51 XZU3293 MEDL-C01) Document 11/19/16 14:00 VCS2384 (Rec: 11/19/16 16:07 IBT1450 MED-C11) Document 11/20/16 03:27 XHN9571 (Rec: 11/20/16 03:27 RER6757 MED-C42) Document 11/20/16 11:12 GJC5696 (Rec: 11/20/16 11:13 CHT8015 MED-C04) Document 11/20/16 14:00 VUT4551 (Rec: 11/20/16 15:12 TFY8807 MED-C04) Document 11/20/16 15:25 MKM1098 (Rec: 11/20/16 15:25 BNO6707 MED-C04) Document 11/20/16 20:52 KTE1391 (Rec: 11/20/16 20:53 FGF4343 MED-C11) Document 11/21/16 06:00 UHC7898 (Rec: 11/21/16 06:30 OYW6456 MEDL-C02) Document 11/21/16 10:02 [id number] (Rec: 11/21/16 10:03 YRH6308 MED-C11) Document 11/21/16 22:00 XDQ5561 (Rec: 11/21/16 23:36 PKN7759 MED-C11) Document 11/22/16 05:32 ZBD1092 (Rec: 11/22/16 05:32 PFG6055 MED-C42) Document 11/22/16 14:00 OZF5078 (Rec: 11/22/16 14:01 [id number] MED-L08) Document 11/22/16 22:00 TKO1144 (Rec: 11/22/16 22:31 FPK9752 MED-C09) Document 11/23/16 05:07 PZM9488 (Rec: 11/23/16 05:17 DXR7570 MED-C42) Document 11/23/16 09:36 LFJ6195 (Rec: 11/23/16 09:37 RIW3288 MED-C09) Document 11/24/16 06:00 PDM6202 (Rec: 11/24/16 06:05 JEU8004 MEDL-C02) Document 11/24/16 13:39 [id number] (Rec: 11/24/16 13:41 QKS9729 MED-C11) Document 11/25/16 03:44 [id number] (Rec: 11/25/16 03:44 CLE9011 MED-C26) Results - Results Lab Results: Laboratory Results - last 24 hr 11/24/16 11/24/16 11/24/16 11:40 16:29 20:11 WBC RBC Hgb Hct MCV MCH MCHC RDW Plt Count MPV Neut % (Auto) Lymph % (Auto) [place] % (Auto) Eos % (Auto) Baso % (Auto) Absolute Neuts (auto) Absolute Lymphs (auto) Absolute Monos (auto) Absolute Eos (auto) Absolute Basos (auto) Absolute Nucleated RBC Nucleated RBC % Sodium Potassium Chloride Carbon Dioxide Anion Gap BUN Creatinine Est GFR ( Amer) Est GFR (Non-Af Amer) BUN/Creatinine Ratio Glucose POC Glucose (mg/dL) 194 H 130 H 147 H Calcium 11/25/16 11/25/16 11/25/16 05:36 05:36 07:27 WBC 8.8 RBC 3.13 L Hgb 8.1 L Hct 25 L MCV 80 MCH 26 L MCHC 33 RDW 19 H Plt Count 373 MPV 7 L Neut % (Auto) 79.5 Lymph % (Auto) 11.6 L [place] % (Auto) 7.2 Eos % (Auto) 0.9 Baso % (Auto) 0.8 Absolute Neuts (auto) 7.0 Absolute Lymphs (auto) 1.0 Absolute Monos (auto) 0.6 Absolute Eos (auto) 0.1 Absolute Basos (auto) 0.1 Absolute Nucleated RBC 0 Nucleated RBC % 0 Sodium 136 Potassium 3.9 Chloride 104 Carbon Dioxide 24 Anion Gap 8 BUN 26 H Creatinine 1.52 H Est GFR ( Amer) 58.4 Est GFR (Non-Af Amer) 45.4 BUN/Creatinine Ratio 17.1 Glucose 52 L POC Glucose (mg/dL) 61 L Calcium 8.5 L Assessment - Problem List Assessment: Patient Problems Anemia (Acute) 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 I spoke with microbiology - the abscess is growing yeast and sparse gram negatives. I wonder if this is consistent with some fistulous connection with bladder. For discussion with Dr. Sanchez +/- Dr. Mart. I want guidance about the use of antifungal therapy and also any need to improve bladder drainage. If we can come up with a daily treatment with IV antibacterials, he could potentially go home tomorrow with outpatient completion of his IV iron infusion. His glucose was 61 mg/dl this morning - I will cut back on his N insulin I discussed the above with the patient and his sister.
[2016-11-25 07:59] LABS: C Reactive Protein 70.32 mg/L (< 5.00)
[2016-11-25] MEDS: Insulin LISPRO* 1 UNITS UNIT SUBCUT SCH ×4 (08:02→21:32)
[2016-11-25] MEDS: Diltiazem CD CAP* 240 MG PO SCH (08:32)
[2016-11-25] MEDS: Pramipexole TAB* 0.125 MG PO SCH ×3 (08:32→22:28)
[2016-11-25] MEDS: glipiZIDE TAB* 5 MG PO SCH ×2 (08:32→17:39)
[2016-11-25] MEDS: Fluconazole 100 MG TAB* TAB PO SCH (08:32)
[2016-11-25] MEDS: Omeprazole CAP* 20 MG PO SCH (08:32)
[2016-11-25] MEDS: Iron Sucrose* 200 MG in NS 0.9% 250 ML* 250 ML IVPB SCH (09:37)
--- NOTE | 2016-11-25 11:07 | PN ---
Progress Note - Progress Note SOAP: Subjective: DOS: 11/25/16 CC: osteomyelitis HPI:70 year old man recently treated for infected pubic symphysis with IV antibiotics, drain, then augmentin; admitted here with malaise, fever, bilateral groin pain. Continues to improve in terms of energy and pelvic pain. ROM not back to normal. Objective: [] Vital Signs Temp 36.8 C 11/25/16 07:30 Pulse 65 11/25/16 07:30 Resp 18 11/25/16 08:00 BP 140/63 11/25/16 07:30 Pulse Ox 97 11/25/16 07:30 Intake & Output 11/24/16 11/25/16 11/25/16 18:59 06:59 18:59 Intake Total 2130 800 760 Output Total 041 392 6074 Balance 1205 -150 -690 Intake: IV Fluids 50 ABX - FLAGYL 50 IVPB 100 ABX - FLAGYL 100 Medicated IV 260 iron sucrose 260 Oral 1720 800 760 Output: Jarrell 149 675 9745 Other: # Bowel Movements 0 Gen:Awake, no distress Neuro: Ox3, follows all commands HEENT:PERRL, MMM Neck:supple Heart:RRR no murmur Lungs:CTA BL Abd:+BS NTND soft Skin: No rash MSK: no spine tenderness : jarrell catheter Microbiology 11/23/16 14:04 Gram Stain - Final Body Fluid - Abscess Body Fluid Culture - Preliminary YEAST Gram Negative Bacilli 11/19/16 07:33 Aerobic Blood Culture - Final Blood Venous No Growth Day 5 Anaerobic Blood Culture - Final No Growth Day 5 Blood Culture - Final Assessment: 1. septic pubic symphysis, pelvic osteomyelitis (acute) and abscess; polymicrobial 2. bladder fistula 3. ureteral stricture with chronic jarrell and ureteral stents 4. hx prostate cancer 5. elevated CRP 6. candiduria; with rising CRP and presence of ureteral stents will plan to treat as infection Plan: 1. continue ceftriaxone 2 gm IV daily, flagyl 500 mg po bid and fluconazole 200 mg po daily; day ; outpatient IV abx including weekly labs, flushes, and dressing changes ordered. 35 minutes floor time >50% face to face with patient and son in law discussing antibiotic plans
[2016-11-25] MEDS ORDERED: Insulin GLARGINE(*) 1 UNITS UNIT SUBCUT SCH (22:00)
[2016-11-25] MEDS: Gabapentin CAP(*) 100 MG PO SCH (22:14)
[2016-11-25] MEDS: Atorvastatin* 20 MG TAB PO SCH (22:15)
[2016-11-25] MEDS: traZODone TAB* 50 MG TAB PO SCH (22:15)
[2016-11-25] MEDS: traMADol TAB* 50 MG PO PRN (22:16)
[2016-11-26] MEDS: metroNIDAZOLE IV 500 MG/100ML* 500 MG/100 ML BAG IVPB SCH (05:41)
[2016-11-26] MEDS: Heparin VIAL(*) 5000 UNITS/ML VIAL (FIVE THOUSAND) SUBCUT SCH (05:45)
[2016-11-26] MEDS: Insulin LISPRO* 1 UNITS UNIT SUBCUT SCH ×2 (07:48→12:18)
[2016-11-26] MEDS: Iron Sucrose* 200 MG in NS 0.9% 250 ML* 250 ML IVPB SCH (08:38)
[2016-11-26] MEDS: Diltiazem CD CAP* 240 MG PO SCH (08:39)
[2016-11-26] MEDS: Fluconazole 100 MG TAB* TAB PO SCH (08:39)
[2016-11-26] MEDS: Pramipexole TAB* 0.125 MG PO SCH (08:39)
[2016-11-26] MEDS: glipiZIDE TAB* 5 MG PO SCH (08:39)
[2016-11-26] MEDS: Omeprazole CAP* 20 MG PO SCH (08:39)
--- NOTE | 2016-11-26 10:19 | PN ---
Subjective - Subjective Reason for Note: Discharge Note History: He continues to have pain - around 6/10 when he moves. But he is tolerating his treatment. 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 (Acute) M86.9 Restless legs (Acute) Urinary tract infection (Acute) Anticoagulation goal of INR 2 to 3 (Chronic) Z51.81, Z79.01 CKD (chronic kidney disease) stage 3, GFR 30-59 ml/min (Chronic) N18.3 Chronic indwelling Burgess catheter (Chronic) Z92.89 Diabetes mellitus with insulin therapy (Chronic) E11.9, Z79.4 History of osteomyelitis (Chronic) Z87.39 Hyperlipidemia (Chronic) E78.5 Hypertension (Chronic) I10 Lumbar spinal stenosis (Chronic) M48.06 Nephrolithiasis (Chronic) N20.0 Paroxysmal atrial fibrillation (Chronic) I48.0 S/P laminectomy (Chronic) Z98.890 Type 2 diabetes mellitus (Chronic) Current Medications: Current Medications Acetaminophen (Tylenol Tab*) 650 mg PO Q4H PRN PRN Reason: PAIN - MILD Last Admin: 11/25/16 22:14 Dose: 650 mg Atorvastatin Calcium (Lipitor*) 20 mg PO 2100 [facility] Last Admin: 11/25/16 22:15 Dose: 20 mg Dextrose (D50w Syringe 50 Ml*) 12.5 gm IV PUSH .FOR FS < 60 - SS PRN PRN Reason: FS < 60 Diltiazem HCl (Cardizem Cd Cap*) 240 mg PO DAILY [facility] Last Admin: 11/26/16 08:39 Dose: 240 mg Fluconazole (Diflucan 100 Mg Tab*) 200 mg PO DAILY [facility] Last Admin: 11/26/16 08:39 Dose: 200 mg Gabapentin (Neurontin Cap(*)) 100 mg PO BEDTIME [facility] Last Admin: 11/25/16 22:14 Dose: 100 mg Glipizide (Glucotrol Tab*) 10 mg PO BID WITH MEALS [facility] Last Admin: 11/26/16 08:39 Dose: 10 mg Heparin Sodium (Porcine) (Heparin Vial(*)) 5,000 units SUBCUT Q8HR [facility] Last Admin: 11/26/16 05:45 Dose: 5,000 units Heparin Sodium (Porcine) (Heparin Flush Picc/Ml/Cvc(*)) 1 - 3 ml FLUSH 0800, 2000 [facility] PRN Reason: Protocol Last Admin: 11/25/16 22:17 Dose: 1 ml Ceftriaxone Sodium 2 gm/ (Sodium Chloride) 100 mls @ 200 mls/hr IVPB Q24H [facility] Last Admin: 11/25/16 16:54 Dose: 200 mls/hr Metronidazole/Sodium Chloride (Flagyl 500 Mg Ivpb*) 500 mg in 100 mls @ 100 mls /hr IVPB Q12H [facility] Last Admin: 11/26/16 05:41 Dose: 100 mls/hr Iron Sucrose 200 mg/ Sodium (Chloride) 260 mls @ 260 mls/hr IVPB DAILY [facility] Stop: 11/27/16 10:00 Last Admin: 11/26/16 08:38 Dose: 260 mls/hr Insulin Glargine (Lantus(*)) 8 units SUBCUT Q24H [facility] Last Admin: 11/25/16 22:18 Dose: 8 unit Insulin Human Lispro (Humalog*) 0 units SUBCUT ACHS [facility] PRN Reason: Protocol Last Admin: 11/26/16 07:48 Dose: Not Given Omeprazole (Prilosec Cap*) 20 mg PO DAILY [facility] Last Admin: 11/26/16 08:39 Dose: 20 mg Pramipexole Dihydrochloride (Mirapex Tab*) 0.125 mg PO TID [facility] Last Admin: 11/26/16 08:39 Dose: 0.125 mg Tramadol HCl (Ultram*) 50 mg PO Q6H PRN PRN Reason: PAIN - MODERATE Last Admin: 11/25/16 22:16 Dose: 50 mg Tramadol HCl (Ultram*) 100 mg PO Q6H PRN PRN Reason: PAIN - SEVERE Last Admin: 11/24/16 21:02 Dose: 100 mg Trazodone HCl (Desyrel Tab*) 50 mg PO BEDTIME [facility] Last Admin: 11/25/16 22:15 Dose: 50 mg Home Medications: Home Medications Medication Instructions Recorded Confirmed Type Omeprazole CAP* [Prilosec CAP* 20 20 mg PO DAILY 06/19/12 11/19/16 History MG] glipiZIDE TAB* [Glucotrol TAB*] 10 mg PO BID 08/19/15 11/19/16 History Atorvastatin* [Lipitor*] 40 mg PO DAILY 09/29/16 11/19/16 History Chlorthalidone 25 mg PO DAILY 09/29/16 11/19/16 History Diltiazem CD CAP* [Cardizem CD 240 mg PO DAILY 09/29/16 11/19/16 History CAP*] Insulin Lispro [Humalog Kwikpen] 14 unit SUBCUT BEDTIME 09/29/16 11/19/16 History Warfarin TAB(*) [Coumadin TAB(*)] 5 mg PO DAILY 09/29/16 11/19/16 History traZODone TAB* [Desyrel TAB*] 50 mg PO BEDTIME PRN 09/29/16 11/19/16 History Allergies: Allergies Allergy/AdvReac Type Severity Reaction Status Date / Time Codeine Allergy tongue Verified 11/11/16 06:23 chris Objective - Vital Signs Vital Signs: Vital Signs 11/25/16 11/25/16 11/25/16 11:31 15:28 19:59 Temperature 97.8 F 98.5 F 98.7 F Pulse Rate 80 77 72 Respiratory 16 Rate Blood Pressure 140/65 128/62 119/61 (mmHg) O2 Sat by Pulse 97 95 97 Oximetry 11/25/16 11/25/16 11/25/16 20:00 22:14 22:16 Temperature Pulse Rate Respiratory 20 16 16 Rate Blood Pressure (mmHg) O2 Sat by Pulse Oximetry 11/25/16 11/26/16 11/26/16 23:27 00:14 00:16 Temperature 98.3 F Pulse Rate 65 Respiratory 20 16 16 Rate Blood Pressure 131/60 (mmHg) O2 Sat by Pulse 97 Oximetry 11/26/16 11/26/16 11/26/16 03:49 07:41 08:00 Temperature 97.6 F 97.6 F Pulse Rate 72 63 Respiratory 20 17 16 Rate Blood Pressure 145/57 143/55 (mmHg) O2 Sat by Pulse 94 98 Oximetry - Intake and Output Intake and Output: Intake & Output 11/23/16 11/24/16 11/25/16 11/26/16 11:59 11:59 11:59 11:59 Intake Total 3147 356 9448 2465 Output Total 2050 9952 3326 3076 Balance -150 -6168 35 610 Intake: IV Fluids 439 30 50 100 ABX - FLAGYL 50 NS 39 30 100 Zosyn 400 IVPB 350 100 225 ABX - FLAGYL 100 100 NS 250 225 Medicated IV 260 iron sucrose 260 Oral 6848 636 9461 2140 Output: Burgess 2049 1835 3325 3075 Other: # Bowel Movements 0 0 0 1 Estimated Stool Amount Small Medium ADLs: Meal Record Start: 11/19/16 01: 20 Freq: DAILY@0900,1400,1800 Status: Active Created 11/19/16 01:19 System (Rec: 11/19/16 01:19 System MED-M06) Document 11/19/16 09:00 [id number] (Rec: 11/19/16 12:39 [id number] MED-C11) Document 11/19/16 14:00 [id number] (Rec: 11/19/16 16:06 [id number] MED-C11) Document 11/19/16 17:53 [id number] (Rec: 11/19/16 17:54 [id number] MED-C04) Document 11/20/16 09:00 [id number] (Rec: 11/20/16 12:32 BKV5445 MED-C11) Document 11/20/16 13:43 [id number] (Rec: 11/20/16 13:44 QLG7756 MED-C11) Document 11/20/16 18:00 [id number] (Rec: 11/20/16 18:25 NIS0182 MED-C11) Document 11/21/16 08:34 [id number] (Rec: 11/21/16 08:34 NBV0494 MED-C11) Document 11/21/16 14:00 [id number] (Rec: 11/21/16 14:00 ZJG2263 MED-C11) Document 11/21/16 18:00 FJH7960 (Rec: 11/21/16 23:35 FVS9051 MED-C11) Document 11/22/16 09:00 [id number] (Rec: 11/22/16 10:27 XGI3401 MED-C09) Document 11/22/16 13:58 LOW7595 (Rec: 11/22/16 13:59 PBJ8352 MED-L08) Document 11/22/16 18:00 [id number] (Rec: 11/22/16 19:20 [id number] MED-C16) Document 11/23/16 09:00 [id number] (Rec: 11/23/16 09:35 NLZ1377 MED-C09) Document 11/23/16 14:00 [id number] (Rec: 11/23/16 14:02 [id number] MED-C09) Document 11/24/16 09:00 [id number] (Rec: 11/24/16 09:13 JTA9575 MED-C11) Document 11/24/16 13:39 IZO7051 (Rec: 11/24/16 13:41 EAN0938 MED-C11) Document 11/24/16 17:32 [id number] (Rec: 11/24/16 17:33 AQK9259 MED-L07) Document 11/25/16 09:00 [id number] (Rec: 11/25/16 09:53 KQZ2674 MED-C11) Document 11/25/16 13:34 EUJ9718 (Rec: 11/25/16 13:35 ZPP8621 MED-C11) Document 11/25/16 18:00 TVT7755 (Rec: 11/25/16 18:40 [id number] MED-C09) Document 11/26/16 09:00 [id number] (Rec: 11/26/16 09:32 HHZ2758 MED-C09) ADLs: Meal Record Start: 11/22/16 20: 55 Freq: Status: Active Created 11/22/16 20:55 [id number] (Rec: 11/22/16 20:55 [id number] MED-C09) Document 11/22/16 20:56 [id number] (Rec: 11/22/16 20:56 RCV3763 MED-C09) Intake and Output Start: 11/19/16 01: 20 Freq: DAILY@0600,1400,2200 Status: Active Created 11/19/16 01:19 System (Rec: 11/19/16 01:19 System MED-M06) Document 11/19/16 05:48 [id number] (Rec: 11/19/16 05:51 QEP9979 MEDL-C01) Document 11/19/16 14:00 QJH5001 (Rec: 11/19/16 16:07 QEM9229 MED-C11) Document 11/20/16 03:27 [id number] (Rec: 11/20/16 03:27 WPK9628 MED-C42) Document 11/20/16 11:12 PSU7979 (Rec: 11/20/16 11:13 CVG9433 MED-C04) Document 11/20/16 14:00 ICN1777 (Rec: 11/20/16 15:12 ZUS1084 MED-C04) Document 11/20/16 15:25 IXP1396 (Rec: 11/20/16 15:25 EKN0415 MED-C04) Document 11/20/16 20:52 GTD1055 (Rec: 11/20/16 20:53 ZXG3235 MED-C11) Document 11/21/16 06:00 LVA0944 (Rec: 11/21/16 06:30 VNX9913 MEDL-C02) Document 11/21/16 10:02 BDV1995 (Rec: 11/21/16 10:03 GQT0140 MED-C11) Document 11/21/16 22:00 SQE9428 (Rec: 11/21/16 23:36 WBH4636 MED-C11) Document 11/22/16 05:32 [id number] (Rec: 11/22/16 05:32 SQT8416 MED-C42) Document 11/22/16 14:00 CWZ9247 (Rec: 11/22/16 14:01 BYU7591 MED-L08) Document 11/22/16 22:00 DCB4976 (Rec: 11/22/16 22:31 TIL3512 MED-C09) Document 11/23/16 05:07 NSP5260 (Rec: 11/23/16 05:17 CNS0046 MED-C42) Document 11/23/16 09:36 IBW2823 (Rec: 11/23/16 09:37 HQS3967 MED-C09) Document 11/24/16 06:00 EEQ3646 (Rec: 11/24/16 06:05 BBG5653 MEDL-C02) Document 11/24/16 13:39 [id number] (Rec: 11/24/16 13:41 RXR2298 MED-C11) Document 11/25/16 03:44 SKE4701 (Rec: 11/25/16 03:44 UZP2770 MED-C26) Document 11/25/16 09:53 UXF8954 (Rec: 11/25/16 09:54 LBU6856 MED-C11) Document 11/25/16 22:00 CBO7626 (Rec: 11/25/16 23:23 SNF0500 MED-C09) Document 11/26/16 09:32 [id number] (Rec: 11/26/16 09:32 VBX7096 MED-C09) - Physical Exam General: No Cyanosis, Yes Anemia, No Jaundice, No Clubbing Lungs and Chest: Yes: Chest Expansion Full, Chest Expansion Symetrica, Percussion Note Resonant, Vessicular Breath Sounds. No: Crackles, Wheezes Heart Rate and Rhythm: Regular Additional Cardiovascular: Yes: Normal Heart Sounds. No: Heart Murmur, Pedal Edema Abdominal Exam: Yes: Soft, Bowel Sounds Present. No: Distention, Abdominal Tenderness Results - Results Lab Results: Laboratory Results - last 24 hr 11/25/16 11/25/16 11/25/16 11:35 16:47 21:31 POC Glucose (mg/dL) 276 H 64 L 122 H 11/26/16 11/26/16 11/26/16 07:43 08:04 08:38 POC Glucose (mg/dL) 60 L 69 L 90 Assessment - Problem List Assessment: Patient Problems Anemia (Acute) Bladder fistula (Acute) Osteomyelitis of symphysis pubis (Acute) Restless legs (Acute) Urinary tract infection (Acute) Anticoagulation goal of INR 2 to 3 (Chronic) CKD (chronic kidney disease) stage 3, GFR 30-59 ml/min (Chronic) Chronic indwelling Burgess catheter (Chronic) Diabetes mellitus with insulin therapy (Chronic) History of osteomyelitis (Chronic) Hyperlipidemia (Chronic) Hypertension (Chronic) Lumbar spinal stenosis (Chronic) Nephrolithiasis (Chronic) Paroxysmal atrial fibrillation (Chronic) S/P laminectomy (Chronic) Type 2 diabetes mellitus (Chronic) Plan: He is ready for discharge. For daily infusions at the [facility]. He will also take oral antibacterials. He has x 1 further iron infusion.
[2016-11-26 12:11] VITALS: BP 135/61
--- NOTE | 2016-11-26 20:02 | DS ---
CC: Dr. Sanchez; Dr. Cevallos DISCHARGE SUMMARY: DATE OF ADMISSION: 11/19/16 DATE OF DISCHARGE: 11/26/16 DISCHARGE DIAGNOSES: Osteomyelitis pubis, abscess; bladder fistula. Organisms polymicrobial includ ing Mar albicans, Klebsiella pneumoniae, Streptococcus anginosus. COMORBIDITIES: 1. Type 2 diabetes mellitus. 2. Chronic indwelling Burgess catheter. SECONDARY DIAGNOSES: 1. Paroxysmal atrial fibrillation, anticoagulation with warfarin. 2. Nephrolithiasis. 3. Lumbar spinal stenosis. 4. Hypertension. 5. Hyperlipidemia. 6. Chronic kidney disease, stage 3. 7. Restless leg syndrome. HISTORY: Landon Montilla is a 70-year-old white male. His presentation is documented in Dr. [facility]'s admitting history and physical. He had a fall causing a hematoma and presented to the emergen cy department on 09/29/16 with a pelvic abscess, was transferred to [facility] where it was drained, initially given IV antibacterials and then discharged on oral agents. At that time, he grew Strep anginosus, grew Providencia rettgeri and anaerobic gram-negative rods. On 11/11/16, he had a ureteral stent replaced by Dr. Cevallos. He noted there could well be a bladder fistula. A week before presentation, he developed 8/10 right groin pain; one and a half days before admission, nausea, vomiting and altered mental state, he had chills and sweats. Examination in the emergency room; vital signs, temperature of 36.7 degrees Celsius, pulse 69, respi rations 15, blood pressure 142/71, O2 saturation 97%. Nothing focal on examination. INITIAL LABS: Sodium 133, potassium 4.1, chloride 100, bicarbonate 21, BUN 48, creatinine 1.97, glu cose 252, calcium 9, albumin 3.3. Normal liver function tests. Ammonia 39. Troponin I 0.03. Lacti c acid 0.7. White count 11.4, hemoglobin 8.5, hematocrit 27%, platelets 509. INR 1.1. UA; 2+ prot ein, 2+ blood, 3+ leukocyte esterase. EKG: Left anterior fascicular block, sinus rhythm. Chest x-ray was clear. Head CT, negative. Abdominal and pelvic CT, osteomyelitis of the pubic symphysis with much progression and collection s urrounding this area. He was admitted with a differential diagnosis for his confusion. However, infection was considered both urinary and from his osteomyelitis. INVESTIGATIONS: Imaging: As above. Labs during his hospitalization, his hemoglobin ranged between 7.7 and 8.8, white count ranged betwe en 8 and 13.9, percent neutrophils were 86.3 on presentation and on the penultimate day in the hospi roseline 79.5. Other labs: Iron was 20, TIBC 239, erythropoietin was 9.8, B12 537. C-reactive protein at presenta tion 78.78 and penultimate day in the hospital 70.32. Microbiology: Urine grew Mar albicans. Abscess fluid grew Mar albicans, Klebsiella pneumon iae, Streptococcus anginosus. The klebsiella was sensitive to ceftriaxone. Initial management, he was started on Zosyn and vancomycin. CONSULTATIONS: Dr. Felix Sanchez, 11/21/16. Consultation note is part of the electronic medical records as are his followup progress notes. He stopped the vancomycin but he recommended a long-te rm course of IV antibiotics potentially followed by long-term oral antibiotics. PROCEDURE: 11/23/16; needle biopsy under CT scan direction by Dr. Angela Hernandez, 3 mL of purulent fluid was aspiration and the culture was as noted above. HOSPITAL COURSE: He had pain in his right groin. This was managed. He was able to walk around the floor. He had no further symptoms during his hospitalization of fever. His antimicrobial treatmen t was guided by culture. The likelihood of a fistula between his bladder and his abscess site is hi gh given that he has a bladder infection with mar. He tolerated the antibiotics without adverse effects. The plan that we formulated is an outpatient management with ceftriaxone 1 g IV per day, oral metronidazole 500 mg t.i.d. and fluconazole 200 mg daily. On the day of discharge, he is feeling well. He has 6/10 pain when he mobilizes. He has had no feve rs or sweats. REVIEW OF SYSTEMS: Respiratory: No cough or sputum. Cardiovascular System: No chest pain, palpit ations or edema. Gastrointestinal System: Good appetite. No nausea or vomiting. No change in bow el habits. No diarrhea. Genitourinary System: Indwelling catheter. Mental System: He is alert a nd oriented. PHYSICAL EXAMINATION ON THE DAY OF DISCHARGE: Temperature 97.6, heart rate 63, respirations 17, oxy gen saturation 98%, blood pressure 143/55. He is anemic. No cyanosis, jaundice, clubbing or adenop athy. Cardiovascular System: His pulse was regular. Heart sounds were normal. No pedal edema. R espiratory System: His chest was clear. Abdomen: No distension, masses, tenderness or organomegal y. Bowel sounds are present. He has a Burgess catheter in situ. ASSESSMENT AND PLAN: 1. Osteomyelitis of the pubic symphysis, abscess and inflammatory material surrounding this osteomy elitis, bladder fistula. We will treat him as an outpatient with IV ceftriaxone. He has 41 more da ys to go. Dr. Cevallos will follow the question of the integrity of the bladder wall once the infectio n is under control. 2. Anemia. This is iron deficient. We treated this with a total replacement dose of iron parenter ally. 3. Type 2 diabetes mellitus. This is under control. 4. Pain control. We will use Tramadol 100 mg 4 times a day, which has been adequate during the hos pitalization. 5. Restless leg. This is improved during his hospitalization. I will not treat this with medicati on as an outpatient. 6. Anticoagulation. He is on this for paroxysmal atrial fibrillation. I am resuming treatment. H is original hematoma was a result of a fall due to slipping on ice. 7. Chronic kidney disease, stage 3. Continue current treatment. 8. Chronic indwelling Burgess catheter per Dr. Cevallos. 9. Diabetes mellitus. Continue usual regimen. We have stopped metformin. 10. Hyperlipidemia. Continue statin. 11. Hypertension. Continue usual medication. 12. Nephrolithiasis per Dr. Cevallos. DISCHARGE MEDICATIONS: 1. Fluconazole 200 mg per day for a month or as per Dr. Sanchez. 2. NPH insulin 14 units q.h.s. 3. Metronidazole 500 mg t.i.d. for a month, to be renewed by Dr. Sanchez. 4. Tramadol 100 mg every 6 hours as needed, not more than 4 of these doses a day. 5. Omeprazole 20 mg daily. 6. Glipizide 10 mg twice daily. 7. Atorvastatin 40 mg q.h.s. I set up appointment for him to see me within a week. I will need to check his INR. He will also h ave a daily infusion at the [facility] as an outpatient with his ceftriaxone. He has one more dose of the iron, which I will provide. We will check a reticulocyte count when he next has r outine blood work. [id number]/[facility] #: [id number]
== END 2016-11-26 13:15 | disposition home or self-care (01) | DRG 477 ==
LOC: ED 18:32 → MED 11-19 00:19
PROVIDERS: ADMIT Internal Medicine; ATTEND Internal Medicine
PROC: 0Q923ZX Drainage of Right Pelvic Bone, Percutaneous Approach, Diagnostic (ICD-10-PCS; principal; 2016-11-20)
PROC: 30233N1 Transfusion of Nonautologous Red Blood Cells into Peripheral Vein, Percutaneous Approach (ICD-10-PCS; 2016-11-20)
DX: M00.9 Pyogenic arthritis, unspecified (principal); G93.40 Encephalopathy, unspecified; K65.1 Peritoneal abscess; M86.18 Other acute osteomyelitis, other site; I48.0 Paroxysmal atrial fibrillation; E11.69 Type 2 diabetes mellitus with other specified complication; N13.6 Pyonephrosis; N32.2 Vesical fistula, not elsewhere classified; E87.1 Hypo-osmolality and hyponatremia; B37.9 Candidiasis, unspecified; I12.9 Hypertensive chronic kidney disease with stage 1 through stage 4 chronic kidney disease, or unspecified chronic kidney disease; C61 Malignant neoplasm of prostate; Z87.891 Personal history of nicotine dependence; Z88.6 Allergy status to analgesic agent; G47.33 Obstructive sleep apnea (adult) (pediatric); Z87.442 Personal history of urinary calculi; M46.90 Unspecified inflammatory spondylopathy, site unspecified; Z98.42 Cataract extraction status, left eye; Z98.41 Cataract extraction status, right eye; Z96.1 Presence of intraocular lens; F32.9 Major depressive disorder, single episode, unspecified; Z98.1 Arthrodesis status; Z83.3 Family history of diabetes mellitus; E78.5 Hyperlipidemia, unspecified; Z82.49 Family history of ischemic heart disease and other diseases of the circulatory system; G25.81 Restless legs syndrome; N20.0 Calculus of kidney; N18.3 Chronic kidney disease, stage 3 (moderate); B96.1 Klebsiella pneumoniae [K. pneumoniae] as the cause of diseases classified elsewhere; B95.4 Other streptococcus as the cause of diseases classified elsewhere; I44.4 Left anterior fascicular block; D50.9 Iron deficiency anemia, unspecified
CPT/HCPCS: 36415; 70450; 71010; 74177; 77012; 80048; 80053; 80076; 80202; 80320; 81003; 81015; 82140; 82565; 82607; 82668; 83540; 83550; 83605; 84484; 84520; 85025; 85027; 85610; 85730; 86140; 86850; 86900; 86901; 86922; 87040; 87070; 87077; 87086; 87102; 87106; 87186; 87205; 93005; A9270-GY; C1751; G0480; J0696; J1644; J1756; J2543; J3010; J3370; P9016; Q9967

== ENCOUNTER → 2017-06-12 09:53 | Day surgery (SDC) | payer MEDICARE ==
--- NOTE | 2017-06-07 14:43 | HP ---
CC: Amando Stein MD * ADMISSION HISTORY AND PHYSICAL: DATE OF ADMISSION: 06/12/17 ADMITTING DIAGNOSES: 1. Bilateral hydronephrosis. 2. Prostate cancer. PLANNED PROCEDURE: Bilateral retrograde pyelograms and bilateral ureteral stent change. SURGEON: Dr. Cevallos. HISTORY: Landon Montilla is a 71-year-old gentleman with a history of prostate cancer and bilateral hydronephrosis, which has been managed with indwelling ureteral stents. He is now being brought in for bilateral stent change. PAST MEDICAL HISTORY: Significant for: 1. Prostate cancer diagnosed initially in 2003, status post radical prostatectomy in 2003 followed by radiation therapy in 2004 and intermittent androgen deprivation therapy over the last many years. 2. History of atrial fibrillation. 3. Hypertension. 4. Dyslipidemia. 5. History of abscess rectus sheath. 6. Diabetes mellitus. MEDICATIONS: On admission: 1. Atorvastatin 50 mg a day. 2. Chlorthalidone 25 mg daily. 3. Cardizem 240 mg daily. 4. Glucotrol 10 mg twice a day. 5. Omeprazole 20 mg daily. 6. Trazodone 50 mg q.h.s. 7. Warfarin, which is currently on hold. 8. His last Lupron injection was on 03/08/17. ALLERGIES: No known drug allergies. PHYSICAL EXAMINATION GENERAL: This is a pleasant elderly gentleman. VITAL SIGNS: Blood pressure is 140/72, pulse 59 per minute and regular, oxygen saturation 97% on room air. LUNGS: Clear bilaterally. CARDIOVASCULAR: S1, S2. No murmurs. ABDOMEN: Soft with mild bilateral flank tenderness. IMPRESSION: A 71-year-old gentleman with bilateral hydronephrosis, which has been managed with indwelling ureteral stents. PLAN: Bilateral retrograde bilateral stent change. [id number]/[facility] #: [id number] MTDD
[~2017-06-12 09:53] MED LIST changes: +Buffered Lidocaine 0.9% SYRIN* 5 ML/SYR SYRINGE INTRADERM ONE; -Buffered Lidocaine 1% SYR 3ML* 3 ML/SYR SYRINGE INTRADERM ONE; -Famotidine IV* 10 MG/ML 2 ML (20 mg) IV SLOW PU ONE; -Famotidine IV* 10 MG/ML 2 ML (20 mg) ONE; +Iohexol 180 (CONTRAST) 10 ML SDV IV ONE; +Levofloxacin 500 MG IVPREMIX(* 500 MG/100 ML BAG IVPB ONE; +Lidocaine 2% PF * 5 ML VIAL ONE; +Propofol* 10 MG/ML 20 ML BTL IV PUSH ONE; +Scopolamine 1.5 mg* PATCH ONE; +Scopolamine 1.5 mg* PATCH TRANSDERM PRN; +fentaNYL* 50 MCG/ML 2 ML VIAL (100 MCG VIAL) IV PRN; +fentaNYL* 50 MCG/ML 2 ML VIAL (100 MCG VIAL) ONE
[2017-06-12 10:31] LABS: Hematocrit 32 % (42-52); Hemoglobin 10.6 g/dl (14.0-18.0)
[2017-06-12 11:05] LABS: BUN/Creatinine Ratio 23.3 (8-20); Calcium 9.5 mg/dL (8.6-10.3); EGFR African American 44.2 (>60); EGFR Non-African American 34.4 (>60); Potassium 3.8 mmol/L (3.5-5.0)
--- NOTE | 2017-06-12 13:24 | RAD ---
INDICATION: Bilateral ureteral stent exchange COMPARISONS: July 04, 2016 TECHNIQUE: Fluoroscopy was provided for a retrograde pyelogram and stent placement. Total fluoroscopy time is: 10 seconds FINDINGS: Spot images demonstrate contrast within the renal collecting systems bilaterally, which are dilated, with bilateral ureteral stents IMPRESSION: FLUOROSCOPY WAS PROVIDED FOR A RETROGRADE PYELOGRAM AND STENT PLACEMENT CPT II Codes: 6045F
[2017-06-12 14:25] VITALS: BP 152/67
--- NOTE | 2017-06-13 01:57 | OP ---
CC: Amando Stein MD; Adolfo Robledo MD * DATE OF OPERATION: 06/12/17 - [facility] DATE OF : 43 SURGEON: Isidro Cevallos MD ANESTHESIOLOGIST: Dr. Zee. ANESTHESIA: General. PRE-OP DIAGNOSES: 1. Bilateral hydronephrosis. 2. Prostate cancer. POST-OP DIAGNOSES: 1. Bilateral hydronephrosis. 2. Prostate cancer. OPERATIVE PROCEDURE: 1. Cystoscopy. 2. Bilateral retrograde pyelograms. 3. Bilateral ureteral stent change. COMPLICATIONS: None. STENT USED: 8.5 Anguillan 28 cm silicone stent, right and left ureter. POSTOPERATIVE CONDITION: Stable. INDICATIONS: Landon Montilla is a 71-year-old gentleman with prostate cancer and bilateral hydronephrosis. He has been managed with indwelling bilateral ureteral stents and is now being brought in for stent change. DESCRIPTION OF PROCEDURE: After induction of general anesthesia, the patient was placed in dorsal lithotomy position. Sequential compression devices were in place and functioning. Initial cystoscopy revealed a normal-appearing distal urethra, stricture was noted in the proximal urethra extending to the bladder neck with a very stiff fibrotic bladder neck noted. The bladder was entered and examined. Both stents were removed. There was some irregularity of the tissue in the floor of the bladder and in the mid trigone probably related to chronic irritation from the stents. Attention was first directed to the right side. Right retrograde pyelogram revealed fullness of the right collecting system and a new 8.5 Anguillan 28 cm silicone stent was successfully placed with good proximal and distal positioning obtained. Next, attention was directed to the left side. I had to use the ureteroscope to access the lumen of the ureter and then a wire was introduced through this. Retrograde pyelogram revealed moderate degree of left hydronephrosis and a new 8.5 Anguillan 28 cm silicone stent was introduced on the left side also with good proximal and distal positioning obtained. An 18-Anguillan Burgess catheter was introduced for bladder drainage. The patient tolerated the procedure satisfactorily and was transferred back to the recovery area in stable condition. [id number]/[facility] #: [id number] [facility]
== END | disposition home or self-care (01) ==
LOC: OR 09:53
PROVIDERS: ATTEND Urology
DX: N13.1 Hydronephrosis with ureteral stricture, not elsewhere classified (principal); C61 Malignant neoplasm of prostate; Z79.84 Long term (current) use of oral hypoglycemic drugs; I48.91 Unspecified atrial fibrillation; Z79.01 Long term (current) use of anticoagulants; E78.5 Hyperlipidemia, unspecified; D64.9 Anemia, unspecified; E11.22 Type 2 diabetes mellitus with diabetic chronic kidney disease; I12.9 Hypertensive chronic kidney disease with stage 1 through stage 4 chronic kidney disease, or unspecified chronic kidney disease; N18.9 Chronic kidney disease, unspecified
CPT/HCPCS: 36415; 74420; 80048; 85014; 85018; 85610; A9270-GY; C1876; J0696; J1956; J2704; J3010

== ENCOUNTER 2017-06-14 08:47 | Emergency (ER) | payer MEDICARE ==
[2017-06-14] MEDS ORDERED: Acetaminophen TAB* 325 MG PO ONE (10:32)
--- NOTE | 2017-06-14 11:24 | RAD ---
INDICATION: Fall. Left ankle pain COMPARISON: None TECHNIQUE: AP, lateral, and oblique views were obtained. FINDINGS: There is no acute change. There is mild degenerative change at tibiotalar joint. There are irregularities about the dorsal aspect of the talus most consistent with most post traumatic and or degenerative change. There are osteocytic changes about the subtalar joint. There are vascular calcifications. IMPRESSION: NO ACUTE FINDINGS. DEGENERATIVE AND/OR REMOTE POST MATTER CHANGES.
--- NOTE | 2017-06-14 11:27 | RAD ---
INDICATION: Left knee injury. TECHNIQUE: 2 views of the left knee were obtained. FINDINGS: The bones are normal alignment. No joint effusion or fracture is seen. Joint spaces appear maintained. IMPRESSION: NO EVIDENCE FOR FRACTURE.
--- NOTE | 2017-06-14 11:27 | RAD ---
Indication: LEFT lower extremity pain post fall. Comparison: March 27, 2017 Technique: AP pelvis and AP and frog-leg lateral views LEFT hip. Report: The LEFT hip is normally located. No LEFT proximal femur or pelvic fracture or pelvic joint diastases. Both hips are remarkable for mild marginal osteophytosis and medial joint space narrowing without significant change. Lumbar sacral spine degenerative spondylosis and facet joint osteoarthritis. Bilateral ureteral stents. Pelvic surgical clips and phleboliths. Peripheral vascular calcifications. Unremarkable soft tissue contours. IMPRESSION: 1. No evidence for LEFT hip or pelvic fracture. 2. 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
--- NOTE | 2017-06-14 11:32 | RAD ---
Indication: Fall. Headache. Anticoagulated. Comparison: November 18, 2016 Technique: Noncontrast CT vertex of skull through foramen magnum. Report: The sulci, ventricles, and basal cisterns are normal for age. Almazan matter white matter differentiation is preserved without evidence for edema. No intra or extra axial hemorrhage, mass, or fluid collection detected. Unremarkable visualized orbital contents. Unremarkable calvarium and skull base. Unremarkable scalp. The visualized paranasal sinuses and mastoid air spaces are clear. IMPRESSION: No evidence for intracranial hemorrhage. Negative unenhanced head CT for age.
--- NOTE | 2017-06-14 11:36 | RAD ---
INDICATION: Fall; headache. Anticoagulated. COMPARISON: July 26, 2012 TECHNIQUE: Multidetector CT images foramen magnum to lung apices without contrast. Multiplanar reformation. REPORT: Atherosclerotic calcification at the carotid bifurcations. Negative for paravertebral hematoma. Negative for vertebral body or posterior element fracture. Negative for facet subluxation at any level. Postsurgical change of anterior C7-T1 fusion. At C5-C6 there is severe disc space narrowing and mild dorsal disc osteophyte complex with only mild resulting impression on the thecal sac. IMPRESSION: 1. No evidence for cervical spine fracture or subluxation. 2. Negative for soft tissue plane hematoma within the [id number]. 3. Atherosclerotic disease at the carotid bifurcations. Consider follow-up carotid ultrasound if not previously performed.
[2017-06-14 12:03] VITALS: BP 113/53
--- NOTE | 2017-06-21 15:28 | ED ---
Complex/Multi-Sys Presentation - HPI Summary HPI Summary: Pt here w/ fall while walking down driveway today - slipped on slick spot in snow/ice and went down. Rt ankle twisted and leg went under his body as he fell. Currently has pain in ankle, knee and hip. Typically ambulates with a walker at home (started using this on his own - no specific medical dx - helps with general back pain and balance). Also reports he takes an anticoagulant. Does not recall striking his head but does have mild head and neck pain since fall. Denies severe BARBA, visual change, nausea, vomiting, syncope, lightheadedness or vertigo. No numbness, tingling, weakness especially into Rt LE however pain is concerning and most prominent in Rt knee. Also reports h/o DM - does not feel glucose changes played a role in injury today - was purely mechanical. - History Of Current Complaint Chief Complaint: EDBackInjuryPain Time Seen by Provider: 06/14/17 09:30 Hx Obtained From: Patient, Family/Cash Specialist - - Allergies/Home Medications Allergies/Adverse Reactions: Allergies Allergy/AdvReac Type Severity Reaction Status Date / Time Codeine Allergy tongue Verified 06/14/17 08:57 swells Home Medications: Home Medications Chlorthalidone TAB* [Hygroton TAB*] 25 mg PO DAILY 06/14/17 [History Confirmed 06/14/17] Diltiazem CD CAP* [Cardizem CD CAP*] 240 mg PO DAILY 06/14/17 [History Confirmed 06/14/17] Insulin NPH (Human) (Isophane) [Humulin N Kwikpen] 14 unit SUBCUT QPM 06/14/17 [ History Confirmed 06/14/17] Warfarin TAB(*) [Coumadin TAB(*)] 7.5 mg PO .WE 06/14/17 [History Confirmed ] PMH/Surg Hx/FS Hx/Imm Hx Previously Healthy: Yes Endocrine/Hematology History: Reports: Hx Anticoagulant Therapy - warfarin, Hx Diabetes - IDDM, Hx Anemia Denies: Hx Sickle Cell Disease Cardiovascular History: Reports: Hx Hypertension - DAILY MEDS, Other Cardiovascular Problems/Disorders - HX OF A-FIB Denies: Hx Pacemaker/ICD Respiratory History: Reports: Hx Sleep Apnea Denies: Other Respiratory Problems/Disorders GI History: Reports: Hx Gastroesophageal Reflux Disease, Hx Irritable Bowel Denies: Hx Jaundice, Other GI Disorders History: Reports: Hx Kidney Infection, Hx Kidney Stones, Hx Renal Disease, Other Problems/Disorders - INDWELLING CATHETER, STENT RIGHT & LEFT URETER, HX OF PROSTATE CANCER Musculoskeletal History: Reports: Hx Arthritis - back,, Hx Back Problems - herniated discs/sx Denies: Other Musculoskeletal History Sensory History: Reports: Hx Cataracts - pepe, Hx Contacts or Glasses - GLASSES Denies: Hx Hearing Aid Opthamlomology History: Reports: Hx Cataracts - pepe, Hx Contacts or Glasses - GLASSES Neurological History: Denies: Other Neuro Impairments/Disorders Psychiatric History: Reports: Hx Depression Denies: Hx Panic Disorder - Cancer History Cancer Type, Location and Year: PROSTATE Hx Chemotherapy: Yes - Surgical History Surgery Procedure, Year, and Place: [id number] MULTIPLE BILATERAL RETROGRADE WITH CATHETER AND BILATERL URETERAL STENT EXCHANGES, [place] [facility] [place] [facility] [place]. [place] C7-T1 [place]CDF AND [place] [facility] [place] DECOM[place]ION LAMINECTOMY L3-4, 4-5[place] [facility] [place] Anesthesia Reactions: Yes - NAUSEA AND VOMITING - NEEDS PATCH Infectious Disease History: No Infectious Disease History: Denies: Traveled Outside the [place] in Last 30 Days - Family History Known Family History: Positive: Diabetes - Mother. - Social History Occupation: Retired Lives: With Family Alcohol Use: None Hx Substance Use: No Substance Use Type: Reports: None Hx Tobacco Use: Yes - not currently Smoking Status (MU): Former Smoker Type: Cigarettes Amount Used/How Often: 3 PACKS A DAY for 10 years Have You Smoked in the Last Year: No Review of Systems Constitutional: Negative Negative: Fever, Chills, Fatigue Eyes: Negative Negative: Photophobia, Blurred Vision, Diplopia ENT: Negative Negative: Dental Pain Cardiovascular: Negative Negative: Palpitations, Chest Pain Respiratory: Negative Negative: Shortness Of Breath Gastrointestinal: Negative Negative: Abdominal Pain, Vomiting, Diarrhea, Nausea Genitourinary: Other - wears protective undergarment "just in case" - no issues since injury Positive: Arthralgia, Myalgia Positive: Bruising - knee Positive: Headache - mild. Negative: Weakness, Paresthesia, Numbness, Syncope, Slurred Speech Psychological: Normal All Other Systems Reviewed And Are Negative: Yes Physical Exam Triage Information Reviewed: Yes Vital Signs On Initial Exam: Initial Vitals Temp Pulse Resp BP Pulse Ox 96.8 F 82 17 137/70 97 06/14/17 08:53 06/14/17 08:53 06/14/17 08:53 06/14/17 08:53 06/14/17 08:53 Vital Signs Reviewed: Yes Appearance: Positive: Well-Appearing, No Pain Distress - appears comfortable seated in wheelchair - pain is mild to moderate with movement of ankle, knee and palpation on Rt hip, Well-Nourished Skin: Positive: Warm, Dry - mild ecchymosis about Rt knee - Rt hip and ankle are w/o ecchymosis, erythema, edema however they are painful to move and TTP Head/Face: Positive: Normal Head/Face Inspection - no battlesign, no step off, no raccoon eyes - NTTP Eyes: Positive: Normal, EOMI, FANNIE, Conjunctiva Clear ENT: Positive: Normal ENT inspection, Hearing grossly normal, Pharynx normal, TMs normal - NO HEMOTYMANUM. Negative: Nasal drainage Dental: Negative: Dental Fracture @ Neck: Positive: Supple, Tenderness @ - PARACERVICAL TTP; mild pain w/ movements Respiratory/Lung Sounds: Positive: Clear to Auscultation, Breath Sounds Present. Negative: Decreased Breath Sounds, Subcutaneous Emphysema, Stridor, Tracheal Deviation Cardiovascular: Positive: Normal, RRR, Pulses are Symmetrical in both Upper and Lower Extremities, S1, S2. Negative: Leg Edema Left, Leg Edema Right Abdomen Description: Positive: Nontender, Soft Bowel Sounds: Positive: Present Musculoskeletal: Positive: Limited @ - Rt knee extension/flexion limited d/t pain - he is comfortable with knee at 90 degrees sitting in wheelchair; he is able to move ankle/toes but reports pain; able to move hip but this is TTP along greater trochanter/SI joint Neurological: Positive: Normal, Sensory/Motor Intact, Alert, Oriented to Person Place, Time, CN Intact II-III Psychiatric: Positive: Normal, Affect/Mood Appropriate - Nelson Coma Scale Coma Scale Total: 15 Diagnostics - Vital Signs Vital Signs Temp Pulse Resp BP Pulse Ox 06/14/17 12:02 98.2 F 81 18 113/53 96 06/14/17 08:53 96.8 F 82 17 137/70 97 - Laboratory Lab Statement: Any lab studies that have been ordered have been reviewed, and results considered in the medical decision making process. Complex Multi-Symp Course/Dx Course Of Treatment: Pt here w/ mehanical fall earlier this morning.Reports slipping on ice and landing with his Rt leg under his body. Pain in hip, knee, ankle and pain w/ ambulation since. Denies head injury or LOC however he is 71 y.o., on warfarin and reports mild BARBA w/ neck pain since fall so head and cervical spine CT's were ordered. No acute pathology on CT reports nor XR's. Pt pain treated and f/u care advised. Suspect sprain of joints and either muscle strain/spasm triggering head/neck pain or pt could have very mild concussion. No bleed found on CT. Advised conservative care and clsoe f/u w/ PCP - return to ED if danger s/sx present. Pt and agree w/ plan. Pt is able to stand and ambulate prior to departure - will continue to use walker at home. NOTE: incidental findings of carotid aa atherosclerosis - discussed w/ pt and to f/u w PCP and reviewed danger s/sx of acute disruption of plaque should this occur (ie. stroke like sx) - they agree to take action if necessary but also understand this finding alone today is not an urgent condition. - Diagnoses Provider Diagnoses: Fall from standing, Right knee sprain, Right ankle sprain, Atherosclerosis of both carotid arteries Discharge - Discharge Plan Condition: Stable Disposition: HOME Patient Education Materials: Ankle Sprain (ED), Knee Sprain (ED), Fall Prevention (ED) Referrals: Amando Stein MD [Primary Care Provider] - Additional Instructions: You appear to have sprained your Right knee and possibly your Right ankle. You were able to bear weight here today but feel free to use your walker at home for assistance/balance to prevent future fall. You may ice, rest, elevate and use topical pain rubs WITHOUT ASPIRIN (ie. Biofreeze, etc). You may continue to take acetaminophen 650mg every 6 hours for pain. Follow-up with PCP in 1 week - call today to schedule an appointment. NOTE: it was also discovered that you have some hardening of your carotid arteries. This is not an emergent condition today that requires admission however you need to follow-up with your PCP to discuss next step of action. Again, call today to schedule follow-up for this condition as well. *If you develop stroke-like symptoms (slurred speech, facial droop, numbness, tingling, weakness), call 911.
== END 2017-06-14 12:02 | disposition home or self-care (01) ==
LOC: ED 08:47
DX: S83.91XA Sprain of unspecified site of right knee, initial encounter (principal); S93.401A Sprain of unspecified ligament of right ankle, initial encounter; I65.23 Occlusion and stenosis of bilateral carotid arteries; R51 Headache; W19.XXXA Unspecified fall, initial encounter; Y93.9 Activity, unspecified; Y92.9 Unspecified place or not applicable; Y99.9 Unspecified external cause status; Z87.891 Personal history of nicotine dependence; Z86.79 Personal history of other diseases of the circulatory system
CPT/HCPCS: 70450; 72125; 99282; A9270-GY

== ENCOUNTER 2017-11-14 08:20 | Inpatient (IN) | payer MEDICARE ==
--- NOTE | 2017-11-09 14:22 | HP ---
PREOPERATIVE HISTORY AND PHYSICAL: DATE OF ADMISSION/SURGERY: 11/14/17 PROVIDER: Mandi Ruiz MD * (DICTATED BY ELIZABETH GLASS) CHIEF COMPLAINT: Bilateral hip pain. HISTORY OF PRESENT ILLNESS: Mr. Montilla is a 71-year-old gentleman with acute on chronic bilateral hip pain. He has pain for over 3 years, but over the last year it has become more severe, pain is worse in the right hip. It is increased by twisting, bending and he can no longer walk more than half a block without severe pain. He has tried pain medication, anti-inflammatories, rest, and physical therapy without significant relief of pain. At this point, he is interested in surgical intervention for correction of the problem. PAST MEDICAL HISTORY: Prostate cancer, type 2 diabetes, hypertension, hypercholesterolemia, chronic kidney disease stage 3, hyperlipidemia, B12 deficiency, chronic anemia, and obesity. PAST SURGICAL HISTORY: Spine surgery, cataract surgery, neck surgery with Dr. Guillaume, kidney stents, and a lumbar laminectomy. He also has a vascular surgery with no anesthesia complications. He does report some nausea with anesthesia. CURRENT MEDICATIONS: 1. Chlorthalidone 25 mg p.o. daily. 2. Glipizide 10 mg 1 tab p.o. b.i.d. 3. Humulin 14 units subcu in the evening or as directed. 4. Omeprazole 20 mg daily. 5. Atorvastatin 40 mg daily. 6. Trazodone 50 mg p.o. q.h.s. 7. Centrum Silver daily. 8. Vitamin C 500 mg daily. 9. Warfarin 5 mg as directed. 10. Tramadol 50 mg 1 to 2 tabs q.6 hours p.r.n. 11. Imodium A-D 2 mg once daily. 12. Diltiazem ER 240 mg daily. ALLERGIES: ZESTORETIC, INDAPAMIDE, and LISINOPRIL. FAMILY HISTORY: Positive for diabetes and cancer. 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 He lives with his . He quit smoking greater than 25 years ago. He denies alcoholic beverage or recreational drug use. He normally ambulates independently and he is right hand dominant. REVIEW OF SYSTEMS: A 14-point review of systems were reviewed with the patient today. Positive for hip pain, neck pain, back pain, night sweats, hearing changes, shortness of breath, cough, nausea, vomiting and occasional diarrhea, history of kidney stones, easy bleeding and bruising. Otherwise, the patient reports review of systems is negative or not relevant. PHYSICAL EXAMINATION GENERAL: He is a well-developed, well-nourished pleasant male, in no acute distress at rest. He is alert and oriented x3 with appropriate mood and affect. VITAL SIGNS: The patient is 6 feet tall, 209 pounds. Blood pressure 155/76, pulse is 79, temperature 97.2. HEENT: Normocephalic, atraumatic. His hearing and vision are grossly intact. NECK: His trachea is midline. RESPIRATORY: Lungs are clear to auscultation bilaterally. No wheezes, rales, or rhonchi. CARDIOVASCULAR: Regular rate and rhythm. No murmurs, rubs, or gallops. Normal S1, S2. ABDOMEN: Soft, nondistended, nontender. Normal bowel sounds. EXTREMITIES: Exam of the right lower extremity, skin is intact without abrasions or open wounds. No palpable masses or lymph nodes. He has 0 to 80 degrees of hip flexion, 0 degrees of internal rotation, and 30 degrees of external rotation. He has pain in the groin with any hip rotation. He can actively flex and abduct, although this causes pain. He has 5/5 strength distally. Sensation to light touch is intact. He has 2+ dorsalis pedis pulse. GAIT: His gait is antalgic. He has slowed shortened steps. IMAGING: Imaging of the right hip shows severe end-stage osteoarthritis. There is medial joint space narrowing in [id number] contacts, subchondral cyst formation in the right acetabular region with superior lateral osteophytes. IMPRESSION: Right hip osteoarthritis. PLAN: The patient is to undergo right total hip arthroplasty by Dr. Ruiz on . The risks, benefits, and post-operative course were discussed with the patient at length and he would like to proceed. All of his questions were answered to his full satisfaction. He is understanding to call if he develops problems or concerns. ELIZABETH GLASS [id number]/[facility] #: [id number] NIKKI
[~2017-11-14 08:20] MED LIST changes: +DiMENhydriNATE IV* 50 MG/ML VIAL IV PUSH PRN; +Famotidine TAB* 20 MG PO ONE; +Gabapentin CAP(*) 300 MG PO ONE; -Iohexol 180 (CONTRAST) 10 ML SDV IV ONE; -Levofloxacin 500 MG IVPREMIX(* 500 MG/100 ML BAG IVPB ONE; -Lidocaine 2% PF * 5 ML VIAL ONE; +Morphine INJ* 2 MG/ML 1 ML CARPUJECT IV PRN; +Naloxone* 0.4 MG/ML 1 ML VIAL IV PRN; +Ondansetron INJ* 2 MG/ML VIAL ONE; +PROCHLORPERAZINE INJ 5 MG/ML 2 ML VIAL IV PRN; -Propofol* 10 MG/ML 20 ML BTL IV PUSH ONE; -Scopolamine 1.5 mg* PATCH ONE; -cefTRIAXone(*) 2 GM ADDV.VIAL IVPB ONE; -fentaNYL* 50 MCG/ML 2 ML VIAL (100 MCG VIAL) ONE; +oxyCODONE/Acetamin 5/325 MG* TAB PO PRN
[2017-11-14] MEDS ORDERED: Ondansetron ODT TAB* 4 MG ONE (08:28)
[2017-11-14] MEDS ORDERED: ceFAZolin 2 GM PREMIX (*) 2 GM/50 ML BAG IVPB ONE (08:28)
[2017-11-14] MEDS ORDERED: Gabapentin CAP(*) 300 MG ONE (08:28)
[2017-11-14] MEDS ORDERED: Buffered Lidocaine 0.9% SYRIN* 5 ML/SYR SYRINGE ONE (08:28)
[2017-11-14] MEDS ORDERED: Famotidine TAB* 20 MG ONE (08:28)
[2017-11-14 08:53] LABS: INR 1.07 (0.77-1.02)
[2017-11-14] MEDS ORDERED: Midazolam* 1 MG/ML 10 ML VIAL (10 MG) ONE (10:02)
[2017-11-14] MEDS ORDERED: fentaNYL* 50 MCG/ML 2 ML VIAL (100 MCG VIAL) ONE (10:02)
[2017-11-14] MEDS ORDERED: Gelfoam 12-7 ADSORBABL SPONGE* 1 EA SPONGE ONE (13:59)
--- NOTE | 2017-11-14 14:40 | RAD ---
Indication: Right total hip replacement. 2 views of the right hip demonstrates right hip femoral reamer in place. Acetabular cup is in place. Intraoperative control films are present. IMPRESSION: Intraoperative control films for right hip replacement.
[2017-11-14] MEDS ORDERED: Norepinephrine VIAL* 1 MG/ML 4 ML VIAL ONE (14:45)
[2017-11-14] MEDS ORDERED: Bupivacaine 0.5% PF 10 ML VIAL INJ ONE (14:45)
[2017-11-14] MEDS ORDERED: Propofol* 500 MG/50 ML BTL ONE (14:45)
[2017-11-14] MEDS ORDERED: Phenylephrine INJ* 10 MG/ML 1 ML VIAL (10 MG) ONE (14:45)
[2017-11-14] MEDS ORDERED: ROPIVACAINE 5 MG/ML 30 ML BTL (0.5%) ONE (14:45)
[2017-11-14] MEDS ORDERED: Bisacodyl SUPP* 10 MG SUPP PR PRN (15:19)
[2017-11-14] MEDS ORDERED: Magnesium Hydroxide LIQ* 30 ML UDC PO PRN (15:19)
[2017-11-14] MEDS ORDERED: Cyclobenzaprine TAB* 10 MG PO PRN (15:19)
[2017-11-14] MEDS ORDERED: Ondansetron 40 MG VIAL* 2 MG/ML 20 ML VIAL IV PRN (15:19)
[2017-11-14] MEDS ORDERED: Morphine INJ* 2 MG/ML 1 ML CARPUJECT IV PRN (15:19)
[2017-11-14] MEDS ORDERED: oxyCODONE/Acetamin 5/325 MG* TAB PO PRN (15:19)
[2017-11-14] MEDS ORDERED: Acetaminophen TAB* 325 MG PO PRN (15:19)
[2017-11-14] MEDS ORDERED: oxyCODONE TAB* 5 MG TAB PO PRN (15:19)
[2017-11-14] MEDS ORDERED: diPHENhydraMINE IV* 50 MG/ML 1 ml VIAL (BENADRYL) IV PRN (15:19)
--- NOTE | 2017-11-14 15:53 | RAD ---
INDICATION: Right hip arthroplasty COMPARISON: November 14, 2017 TECHNIQUE: An AP view of the pelvis and AP views of the hip in neutral and abducted position were obtained FINDINGS: There is right hip arthroplasty. There is no evidence of hardware failure. There are bilateral ureteral stents. There are multiple clips projecting over the minor pelvis. IMPRESSION: THE RIGHT HIP PROSTHESIS APPEARS NORMALLY SEATED.
[2017-11-14] MEDS ORDERED: Warfarin TAB(*) 6 MG PO ONE (17:00)
[2017-11-14] MEDS ORDERED: Dextrose 50% Syringe 50 ML* 25 GM/50 ML SYRINGE IV PUSH PRN (18:01)
[2017-11-14 19:38] LABS: Hematocrit 22 % (42-52); Hemoglobin 7.2 g/dl (14.0-18.0)
[2017-11-14] MEDS ORDERED: Insulin GLARGINE(*) 1 UNITS UNIT SUBCUT SCH (21:00)
[2017-11-14] MEDS: ceFAZolin 1 GM in Dextrose (*) 1 GM/50 ML BAG IVPB SCH (21:22)
[2017-11-14] MEDS: Atorvastatin* 40 MG TAB PO SCH (21:24)
[2017-11-14] MEDS: Docusate CAP* 100 MG PO SCH (21:24)
[2017-11-14] MEDS: Insulin LISPRO* 1 UNITS UNIT SUBCUT SCH (21:25)
[2017-11-14] MEDS: Magnesium Hydroxide LIQ* 30 ML UDC PO SCH (21:33)
--- NOTE | 2017-11-14 22:54 | CONS ---
CONSULTATION REPORT: DATE OF CONSULT: 11/14/17 PROVIDER: Zane Isaacs NP ATTENDING PHYSICIAN: Dr. Bowling (report dictated by Zane Isaacs NP). REFERRING PHYSICIAN: Dr. Ruiz*, orthopedic surgeon. PRIMARY CARE PROVIDER: Dr. Stein. BUSINESS ACCOUNT EXECUTIVE: Dr. White. REASON FOR CONSULT: Co-medical management status post right hip total arthroplasty secondary to osteoarthritis. HISTORY OF PRESENT ILLNESS: Mr. Montilla is a 71-year-old male with past medical history of atrial fibrillation, on Coumadin; insulin-dependent type 2 diabetes; hypertension; hyperlipidemia; chronic kidney disease; chronic anemia; history of prostate cancer, who underwent an elective right total hip arthroplasty with Dr. Ruiz today. Hospital Medicine was asked to co-medical manage. The patient underwent the right total hip arthroplasty with Dr. Ruiz today, which per reported by the ortho team was straightforward, but he did have some bleeding and a vein was clipped. He remained hemodynamically stable. The patient was evaluated on short stay surgical unit and was found to be lying in bed, alert, and oriented x3. He denies any pain. He does report that he feels cold and is shivering a little bit. His temp is noted to be 98.1. Otherwise, he denies any complaints. He currently denies shortness of breath, chest pain, dizziness, nausea, vomiting, or abdominal pain. He reports that he is comfortable otherwise. PAST MEDICAL HISTORY: 1. History of prostate cancer. 2. Insulin-dependent type 2 diabetes. 3. Hypertension. 4. Hyperlipidemia. 5. Chronic kidney disease, stage 3. 6. B12 deficiency. 7. Chronic anemia. 8. Obesity. 9. Atrial fibrillation, on Coumadin. 10. GERD. PAST SURGICAL HISTORY: Lumbar laminectomy, cataract surgery, neck surgery with Dr. Guillaume, history of kidney stents. The patient also reports vascular surgery. CURRENT MEDICATIONS: 1. Acetaminophen 650 mg p.o. q.4 hours p.r.n. 2. Dulcolax suppository 10 mg per rectum daily p.r.n. 3. Flexeril 5 mg p.o. t.i.d. p.r.n. 4. Benadryl 25 mg IV q.6 hours p.r.n. 5. Colace 100 mg p.o. b.i.d. 6. Lovenox 30 mg subcu q.24 hours. 7. LR 75 mL an hour. 8. Lactulose 30 mL p.o. q.6 hours p.r.n. 9. Milk of magnesia 30 mL p.o. b.i.d. and 30 mL p.o. q.6 hours p.r.n. 10. Morphine sulfate 2 mg IV q.2 hours p.r.n. 11. Multivitamin 1 tab p.o. daily. 12. Narcan 0.08 mg IV q.2 minutes p.r.n. 13. Zofran 4 mg IV q.6 hours p.r.n. 14. Oxycodone 10 mg p.o. q.4 hours p.r.n. 15. Percocet 5/325 mg 1 to 2 tabs p.o. q.4 hours p.r.n. ALLERGIES: LISINOPRIL, INDAPAMIDE, and ZESTORETIC. FAMILY HISTORY: Positive for cancer and diabetes. SOCIAL HISTORY: The patient reports a history of tobacco abuse, quitting approximately 25 years ago. He denies alcohol or recreational drug use. He currently lives at home with his , who is his healthcare proxy. 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 REVIEW OF SYSTEMS: A 14-point review of systems was performed. All the pertinent positives and negatives are mentioned in the history of present illness. Otherwise are negative. PHYSICAL EXAM: Vital Signs: Temperature 98.1, heart rate 53, respirations 16, O2 sat 100% on room air, blood pressure 117/55. General Appearance: A 71-year- old male, lying flat in bed, alert and oriented x3, in no acute distress, appears to have mild shivers. HEENT: Head is normocephalic, atraumatic. Pupils are equal and reactive to light. Oropharynx is clear. Moist mucous membranes. Neck is supple. Cardiac: S1, S2. Regular rate and rhythm. No murmur, rub, or gallop appreciated. Lungs are clear to auscultation bilaterally , good aeration throughout. No rhonchi, rales, or wheezes noted. Abdomen: Soft, nontender, nondistended. Normal bowel sounds throughout. Extremities: The patient currently is in a hip immobilizer. He has a clean, dry, intact bandage over his right hip. No drainage noted. The patient has good sensation to lower extremities. 2+ DP pulses bilaterally. Neuro: Alert and oriented x3. No focal deficits noted. 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 Speech is clear. ASSESSMENT AND PLAN: Mr. Mnotilla is a 71-year-old male, who underwent a right total hip arthroplasty today with Dr. uRiz for right hip osteoarthritis, who also has a past medical history of insulin-dependent type 2 diabetes; atrial fibrillation, on Coumadin; hypertension; hyperlipidemia; chronic kidney disease ; chronic anemia; B12 deficiency. Hospital Medicine was asked to co-medical manage. 1. Status post right total hip arthroplasty. Postop day 0. Disposition per Dr. Ruiz and the orthopedic team. PT/OT consults, pain management. Bowel regimen. 2. Insulin-dependent type 2 diabetes. Fingerstick blood glucose a.c. and h.s. with lispro sliding scale. The patient currently takes Humulin 14 units q.p.m. We will reduce this to 7 units q.p.m. this evening. Hold oral diabetic medications. 3. Atrial fibrillation. The patient appears to be in a sinus rhythm at this time. The patient is to resume his Coumadin this evening as ordered by Ortho. Restart diltiazem tomorrow morning with hold parameters. 4. Hypertension. The patient takes chlorthalidone at home. This will be held in the postoperative state. We will continue to follow blood pressures closely and restart when appropriate. The patient also takes diltiazem for his atrial fibrillation. At this time, we will start this tomorrow morning with hold parameters. 5. Hyperlipidemia. Continue atorvastatin. 6. Gastroesophageal reflux disease. Continue omeprazole 20 mg p.o. daily. 7. Chronic kidney disease, stage 3. The patient's creatinine on 10/20/17 was 2.74. Although the patient did not have preoperative labs today, we will check creatinine in the morning. 8. Chronic anemia. The patient's hemoglobin and hematocrit was 9.9 and 28 on 10/20/17 and this appears to be around his baseline. We will check H and H this evening due to the report that he had some bleeding during surgery. 9. DVT prophylaxis: Lovenox 30 mg subcu q.24 hours and he has been started on Coumadin this evening. 10. Code status: Full code. TIME SPENT: Approximately 60 minutes were spent on this consultation. ZANE ISAACS, INSTRUCTIONAL INTERVENTIONIST [id number]/[facility] #: [id number] [facility] HOSPITALNina
[2017-11-15] MEDS: oxyCODONE/Acetamin 5/325 MG* TAB PO PRN ×3 (03:13→12:02)
[2017-11-15] MEDS: ceFAZolin 1 GM in Dextrose (*) 1 GM/50 ML BAG IVPB SCH ×2 (05:25→12:48)
[2017-11-15 06:14] LABS: Hematocrit 21 % (42-52); Hemoglobin 7.1 g/dl (14.0-18.0); Mean Platelet Volume 8.1 um3 (7.4-10.4); Platelet Count 294 10^3/ul (150-450)
[2017-11-15 06:29] LABS: EGFR Non-African American 18.1 (>60)
[2017-11-15 06:32] LABS: INR 1.14 (0.77-1.02)
[2017-11-15] MEDS: Vitamin THERAPEUTIC TAB PO SCH (08:18)
[2017-11-15] MEDS: Magnesium Hydroxide LIQ* 30 ML UDC PO SCH ×2 (08:18→20:39)
[2017-11-15] MEDS: Docusate CAP* 100 MG PO SCH ×2 (08:19→20:37)
[2017-11-15] MEDS: Insulin LISPRO* 1 UNITS UNIT SUBCUT SCH ×4 (08:20→20:38)
--- NOTE | 2017-11-15 08:48 | OP ---
DATE OF OPERATION: 11/14/17 - ROOM #349 DATE OF : 43 ATTENDING SURGEON: Mandi Ruiz MD H[employer] MILL OPERATOR: ELIZABETH Charlton. Mr. Grant did help throughout the procedure with preparation of the leg, wound retraction, manipulation of the hip and wound closure. ANESTHESIOLOGIST: Dr. Clay. ANESTHESIA: Spinal. PRE-OP DIAGNOSIS: Severe end-stage degenerative osteoarthritis of the right hip. POST-OP DIAGNOSIS: Severe end-stage degenerative osteoarthritis of the right hip. OPERATIVE PROCEDURE: Right total hip arthroplasty. SPECIMENS: Femoral head and acetabular reaming sent to Pathology. COMPLICATIONS: None. ESTIMATED BLOOD LOSS: 500 cc. HARDWARE: This is an uncemented [employer] total hip arthroplasty hardware, for the cup, a 58F Trident Tritanium hemispherical shell, a single 20-mm screw was used. For the stem, an Accolate TMZF size 6 with a 127-degree neck. For the head, an LFIT V40 femoral head 40 +0. For the liner, a Trident X3 0-degree polyethylene insert 40F. BRIEF HISTORY/INDICATION: Mr. Montilla is a 71-year-old gentleman with a 1-year of increasingly severe right hip pain. He had advanced arthritis on plain films. He failed conservative treatment with anti-inflammatories, pain medications, physical therapy, and ambulatory assistive devices. Due to continued pain and decreased quality of life, he elected to undergo right total hip arthroplasty. Informed consent was obtained from the patient. He understood the risks of the surgery included, but were not limited to bleeding, infection, damage to nearby structures, continued pain, need for further surgery, intraoperative fracture, nerve palsy, hardware failure or loosening, dislocation, leg length discrepancy , stroke, heart attack, blood clot and . He wished to proceed. INTRAOPERATIVE FINDINGS: Intraoperatively, the patient was noted to have severe end-stage arthritis with complete loss of cartilage along the femoral head and the acetabulum. DESCRIPTION OF PROCEDURE: Mr. Montilla was identified in the preanesthesia unit. His right lower extremity was marked as the correct operative side. Informed consent was signed and placed in the chart. The patient was taken to the operating room and placed under spinal anesthesia. He had his Burgess catheter already placed. He was placed in the left lateral decubitus position on the PEG board and all bony prominences were well padded. Right lower extremity was prepped and draped in the usual sterile fashion. Preop time-out was made to correctly identity the patient's side and site. Appropriate perioperative antibiotics were given within 1 hour of incision. A 12-cm posterior hip incision was made with a 10 blade and carried down to the lateral fascial layer. Lateral fascial layer was incised in line with the skin incision. A Charnley retractor was placed. The piriformis and conjoined tendons were identified. These were elevated off the posterolateral femur using electrocautery and tagged with #5 Ethibond. Next, electrocautery was used to make a standard posterolateral capsular flap and this was also tagged with #5 Ethibond. The hip was carefully dislocated. Lesser troch to center of the femoral head measured 65 mm. Oscillating saw was used to make the appropriate femoral neck cut. The femoral head was carefully removed. The femur was retracted anteriorly. After appropriate placement of retractors, the acetabulum was easily visualized. Long-handled knife was used to sharply remove any remaining labrum from the acetabular rim. The acetabulum was sequentially reamed up to a size #57. Bleeding subchondral bone bed was obtained. 57 trial was impacted and had an excellent stability and fit. During reaming, there was significant amount of bleeding near the obturator artery region. Three small hemoclips were used to obtain hemostasis. No further bleeding was encountered. Final implant chosen was a Trident Tritanium hemispherical shell 58F. This was impacted into the acetabulum without difficulty. This cup was stable with appropriate anteversion and abduction angle. A single 20-mm screw was placed. Liner chosen was a Trident X3 0-degree polyethylene insert 40F. This was impacted into the acetabulum without difficulty. Stability of the liner was checked and rechecked and noted to be stable. Attention was next turned to preparation of the proximal femur. A canal finder was used to enter the proximal femur. Femur was sequentially broached up to a size 6. Size 6 broach had excellent fit. There was appropriate anteversion. A 127 neck trial was chosen with a 40 +0 head trial. Lesser troch to the center of the femoral head measured approximately 66 mm. The hip was reduced and taken through a range of motion. The hip was stable in all positions. Soft tissue tension and leg lengths were seemed to be appropriate. The hip was carefully dislocated. All trials were removed. Final implant chosen was an Accolade TMZF size 6 with a 127-degree neck angle. This was impacted into the femur without difficulty. An LFIT anatomic V40 femoral head 40 +0 was chosen as the final implant. This was impacted on to the femoral neck. The hip was reduced and taken through a range of motion. The hip was stable in all positions. The wound was copiously irrigated with sterile saline. Previously tagged capsule and tendons were reapproximated to the posterolateral femur through 2 trochanteric drill holes. The lateral fascial layer was closed using interrupted #1 Vicryl. The rest of the incision was closed in a layered fashion using 0 and 2-0 Vicryls. Skin was closed using running 3-0 Monocryl with Dermabond. Sterile Adaptic, 4x4s, and paper tape were used to cover the incision. The patient's anesthesia was reversed without difficulty. He was taken to the PACU in stable condition. Intended weightbearing will be weightbearing as tolerated. Intended DVT prophylaxis will be Coumadin with a Lovenox bridge. [id number]/[facility] #: [id number]
[2017-11-15] MEDS: Enoxaparin(*) 30 MG/0.3 ML SYR SUBCUT SCH (12:06)
--- NOTE | 2017-11-15 15:53 | PN ---
Subjective Date of Service: 11/15/17 Interval History: Patient reports he is feeling well today. He is receiving 2 units PRBCs for anemia. He denies dizziness or sob. He reports his pain is well controlled. Reports good appetite. No fevers or chills. visiting Objective Active Medications: Acetaminophen (Tylenol Tab*) 650 mg PO Q4H PRN PRN Reason: PAIN OR TEMPERATURE Atorvastatin Calcium (Lipitor*) 40 mg PO BEDTIME [facility] Last Admin: 11/14/17 21:24 Dose: 40 mg Bisacodyl (Dulcolax Supp*) 10 mg [place] DAILY PRN PRN Reason: constipation Cyclobenzaprine HCl (Flexeril Tab*) 5 mg PO TID PRN PRN Reason: SPASMS Dextrose (D50w Syringe 50 Ml*) 12.5 gm IV PUSH .FOR FS < 60 - SS PRN PRN Reason: FS < 60 Diltiazem HCl (Cardizem Cd Cap*) 240 mg PO QPM [facility] Diphenhydramine HCl (Benadryl Iv*) 25 mg IV Q6H PRN PRN Reason: itching Docusate Sodium (Colace Cap*) 100 mg PO BID [facility] Last Admin: 11/15/17 08:19 Dose: 100 mg Enoxaparin Sodium (Lovenox(*)) 30 mg SUBCUT Q24H [facility] Last Admin: 11/15/17 12:06 Dose: 30 mg Lactated Ringer's (Lactated Ringers 1000 Ml Bag*) 1,000 mls @ 75 mls/hr IV PER RATE [facility] Last Admin: 11/15/17 07:15 Dose: 75 mls/hr Insulin Glargine (Lantus(*)) 7 units SUBCUT Q24H [facility] Last Admin: 11/14/17 21:25 Dose: 7 units Insulin Human Lispro (Humalog*) 0 units SUBCUT ACHS [facility] PRN Reason: Protocol Last Admin: 11/15/17 12:05 Dose: 8 units Lactulose (Lactulose*) 30 ml PO Q6H PRN PRN Reason: constipation Magnesium Hydroxide (Milk Of Magnesia Liq*) 30 ml PO BID [facility] Last Admin: 11/15/17 08:18 Dose: 30 ml Magnesium Hydroxide (Milk Of Magnesia Liq*) 30 ml PO Q6H PRN PRN Reason: constipation Morphine Sulfate (Morphine Inj (Syringe)*) 2 mg IV Q2H PRN PRN Reason: PAIN Multivitamins (Theragran Tab*) 1 tab PO DAILY [facility] Last Admin: 11/15/17 08:18 Dose: 1 tab Omeprazole (Prilosec Cap*) 20 mg PO 1630 [facility] Ondansetron HCl (Zofran 40 Mg Vial*) 4 mg IV Q6H PRN PRN Reason: nausea Oxycodone HCl (Roxycodone Tab*) 10 mg PO Q4H PRN PRN Reason: PAIN - SEVERE Oxycodone/Acetaminophen (Percocet 5/325 Tab*) 2 tab PO Q4H PRN PRN Reason: PAIN Last Admin: 11/15/17 12:02 Dose: 2 tab Oxycodone/Acetaminophen (Percocet 5/325 Tab*) 1 tab PO Q4H PRN PRN Reason: PAIN Vital Signs - 8 hr 11/15/17 11/15/17 11/15/17 08:04 10:23 10:58 Temperature 98.0 F 98.0 F Pulse Rate 75 68 Respiratory 16 Rate Blood Pressure 123/45 126/47 (mmHg) O2 Sat by Pulse 98 97 100 Oximetry 11/15/17 11/15/17 11/15/17 12:02 12:10 12:41 Temperature 98.6 F Pulse Rate 75 Respiratory 16 16 16 Rate Blood Pressure 140/55 (mmHg) O2 Sat by Pulse 98 Oximetry 11/15/17 13:47 Temperature 98.0 F Pulse Rate 76 Respiratory 16 Rate Blood Pressure 133/53 (mmHg) O2 Sat by Pulse 97 Oximetry Oxygen Devices in Use Now: None Appearance: chronically ill appearing 71 yo male sitting up in a chair in NAD. A +O x3 Eyes: No Scleral Icterus, PERRLA Ears/Nose/Mouth/Throat: NL Teeth, Lips, Gums, Mucous Membranes Moist Neck: NL Appearance and Movements; NL JVP Respiratory: Symmetrical Chest Expansion and Respiratory Effort, Clear to Auscultation Cardiovascular: NL Sounds; No Murmurs; No JVD, RRR, No Edema Abdominal: NL Sounds; No Tenderness; No Distention Extremities: No Edema, No Clubbing, Cyanosis Skin: - - right hip dressing CD+I no drainage noted Neurological: Alert and Oriented x 3, NL Sensation, NL Muscle Strength and Tone Lines/Tubes/Other Access: Clean, Dry and Intact Peripheral IV Nutrition: Taking PO's Result Diagrams: 11/15/17 05:47 11/15/17 05:47 Assess/Plan/Problems-Billing Assessment: Mr. Montilla is a 71 yo male with a PMH of DM-2 insulin dependent, Chronic anemia, B12 deficiency, CKD, HTN, afib on coumadin who underwent an elective right total hip replacement with Dr. Ruiz on 11/14 - Patient Problems (1) Status post total hip replacement, right Comment: POD #1 Dispo per Ortho PT Pain management/bowel regimen (2) Anemia Comment: - hx of chronic anemia. Dropped from hbg 9 to 7. EBL 500 mls intraoperatively - Recievd 2 units PRBCs today - check HH in am (3) CKD (chronic kidney disease) stage 3, GFR 30-59 ml/min Comment: - creatinine at baseline 1.5-3 - today slightly higher at 3.3. Will continue gentle fluids overnight, recheck in am. ATN vs pre-renal. Send urine to calculate FENA. Urine output wnls (4) Diabetes mellitus with insulin therapy Comment: - Hold oral DM meds - FSBG ACHS with Lispro SS - Lantus - increase to 14 units (5) Hyperlipidemia Comment: - statin (6) Hypertension Comment: - Continue Cardizem. Restart Chlorthalidone in am (7) Paroxysmal atrial fibrillation Comment: -appears to be in SR -continue cardizem - ortho re-started coumadin (8) DVT prophylaxis Comment: Lovenox q24hr, Ortho restarted on couamdin POD #0, DC lovenox once INR is therapuetic.
--- NOTE | 2017-11-15 16:43 | PN ---
Progress Note - Progress Note Date of Service: 11/15/17 SOAP: Subjective: []Patient seen at bedside. He is feeling well aside from lightheadedness with change of position this morning. He is not lightheaded at rest. Denies chest pain, shortness of breath, dizziness, nausea or leg numbness. Objective: [] Vital Signs Temp 98.4 F 11/15/17 16:12 Pulse 71 11/15/17 16:12 Resp 16 11/15/17 16:12 BP 136/57 11/15/17 16:12 Pulse Ox 97 11/15/17 16:12 Intake & Output 11/14/17 11/15/17 11/15/17 18:59 06:59 18:59 Intake Total 3250 665 993 Output Total 800 1250 650 Balance 2450 -585 343 Weight 207 lb 12.8 oz Intake: IV Fluids 3200 LR 3200 IVPB 55 ABX - CEFAZOLIN 55 Oral 50 610 440 Packed Cells 553 Output: Urine 500 Burgess 200 750 650 Estimated Blood Loss 600 Laboratory Last Values Hgb 7.1 g/dl (14.0-18.0) L 11/15/17 05:47 Hct 21 % (42-52) L 11/15/17 05:47 Plt Count 294 10^3/ul (150-450) 11/15/17 05:47 MPV 8.1 um3 (7.4-10.4) 11/15/17 05:47 INR (Anticoag Therapy) 1.14 (0.77-1.02) H 11/15/17 05:47 Sodium 135 mmol/L (139-145) L 11/15/17 05:47 Potassium 4.4 mmol/L (3.5-5.0) 11/15/17 05:47 Chloride 107 mmol/L (101-111) 11/15/17 05:47 Carbon Dioxide 22 mmol/L (22-32) 11/15/17 05:47 Anion Gap 6 mmol/L (2-11) 11/15/17 05:47 BUN 63 mg/dL (6-24) H 11/15/17 05:47 Creatinine 3.36 mg/dL (0.67-1.17) H 11/15/17 05:47 Est GFR ( Amer) 23.3 (>60) 11/15/17 05:47 Est GFR (Non-Af Amer) 18.1 (>60) 11/15/17 05:47 BUN/Creatinine Ratio 18.8 (8-20) 11/15/17 05:47 Glucose 147 mg/dL (70-100) H 11/15/17 05:47 POC Glucose (mg/dL) 313 mg/dL (70-100) H 11/15/17 11:22 Calcium 8.5 mg/dL (8.6-10.3) L 11/15/17 05:47 Blood Type O Positive 11/15/17 05:47 Antibody Screen Negative 11/15/17 05:47 Crossmatch See Detail 11/15/17 05:47 General: Patient appeared quite pale prior to pRBC, color much improved after 1 unit transfused. NAD RLE: Right hip dressing CDI without surrounding erythema. Thigh soft. DF/PF intact. DP2+. Capillary refill less than two seconds and sensation intact distally. BL LE: Calves supple and nontender without erythema, edema or palpable cords Assessment: []POD 1 sp Right total hip arthroplasty Acute bloodloss anemia Plan: []WBAT PT/OT Lovenox, coumadin 6 mg today
[2017-11-15] MEDS ORDERED: Warfarin TAB(*) 6 MG PO ONE (17:00)
[2017-11-15] MEDS: Diltiazem CD CAP* 240 MG PO SCH (17:20)
[2017-11-15] MEDS: Omeprazole CAP* 20 MG PO SCH (17:20)
[2017-11-15] MEDS: Atorvastatin* 40 MG TAB PO SCH (20:37)
[2017-11-15] MEDS ORDERED: Insulin GLARGINE(*) 1 UNITS UNIT SUBCUT SCH (21:00)
[2017-11-16] MEDS: oxyCODONE/Acetamin 5/325 MG* TAB PO PRN ×4 (01:13→18:09)
[2017-11-16 05:29] LABS: ABS Basophils 0 10^3/ul (0-0.2); ABS Eosinophils 0.1 10^3/ul (0-0.6); ABS Lymphocytes 0.7 10^3/ul (1.0-4.8); ABS Neutrophils 6.1 10^3/ul (1.5-7.7); ABS Nucleated RBC 0 10^3/ul; Eosinophil % 1.1 % (0-6); Hematocrit 23 % (42-52); Lymphocyte % 9.4 % (25-47); Mean Corpuscular HGB Conc 35 g/dl (31-36); Mean Corpuscular Hemoglobin 29 pg (27-31); Mean Corpuscular Volume 83 fL (80-94); Mean Platelet Volume 7.8 um3 (7.4-10.4); Nucleated Red Blood Cells % 0; Platelet Count 249 10^3/ul (150-450); Red Blood Count 2.79 10^6/ul (4.0-5.4); Red Cell Distribution Width 15 % (10.5-15)
[2017-11-16 05:36] LABS: INR 1.21 (0.77-1.02)
[2017-11-16 05:45] LABS: EGFR Non-African American 20.2 (>60)
[2017-11-16] MEDS: Insulin LISPRO* 1 UNITS UNIT SUBCUT SCH ×4 (07:33→22:13)
[2017-11-16] MEDS: Chlorthalidone TAB* 50 MG PO SCH (09:27)
[2017-11-16] MEDS: Docusate CAP* 100 MG PO SCH ×2 (09:27→22:14)
[2017-11-16] MEDS: Magnesium Hydroxide LIQ* 30 ML UDC PO SCH ×2 (09:27→22:13)
[2017-11-16] MEDS: Vitamin THERAPEUTIC TAB PO SCH (09:27)
[2017-11-16] MEDS: Enoxaparin(*) 30 MG/0.3 ML SYR SUBCUT SCH (12:05)
--- NOTE | 2017-11-16 13:32 | PN ---
Progress Note - Progress Note Date of Service: 11/16/17 SOAP: Subjective: []Patient seen at bedside. He is feeling much better today with no lightheadedness at this time. Denies chest pain, shortness of breath, dizziness. Objective: [] Vital Signs Temp 98.0 F 11/16/17 11:02 Pulse 68 11/16/17 11:02 Resp 18 11/16/17 11:57 BP 128/51 11/16/17 11:02 Pulse Ox 96 11/16/17 11:02 Intake & Output 11/15/17 11/16/17 11/16/17 18:59 06:59 18:59 Intake Total 993 1700 350 Output Total 650 1850 Balance 343 -150 350 Intake: Oral 440 1700 350 Packed Cells 553 Output: Burgess 650 1850 Other: # Bowel Movements 0 Laboratory Last Values WBC 8.0 10^3/ul (3.5-10.8) 11/16/17 05:00 RBC 2.79 10^6/ul (4.0-5.4) L 11/16/17 05:00 Hgb 8.0 g/dl (14.0-18.0) L 11/16/17 05:00 Hct 23 % (42-52) L 11/16/17 05:00 MCV 83 fL (80-94) 11/16/17 05:00 MCH 29 pg (27-31) 11/16/17 05:00 MCHC 35 g/dl (31-36) 11/16/17 05:00 RDW 15 % (10.5-15) 11/16/17 05:00 Plt Count 249 10^3/ul (150-450) 11/16/17 05:00 MPV 7.8 um3 (7.4-10.4) 11/16/17 05:00 Neut % (Auto) 76.9 % (38-83) 11/16/17 05:00 Lymph % (Auto) 9.4 % (25-47) L 11/16/17 05:00 Hendry % (Auto) 12.2 % (0-7) H 11/16/17 05:00 Eos % (Auto) 1.1 % (0-6) 11/16/17 05:00 Baso % (Auto) 0.4 % (0-2) 11/16/17 05:00 Absolute Neuts (auto) 6.1 10^3/ul (1.5-7.7) 11/16/17 05:00 Absolute Lymphs (auto) 0.7 10^3/ul (1.0-4.8) L 11/16/17 05:00 Absolute Monos (auto) 1.0 10^3/ul (0-0.8) H 11/16/17 05:00 Absolute Eos (auto) 0.1 10^3/ul (0-0.6) 11/16/17 05:00 Absolute Basos (auto) 0 10^3/ul (0-0.2) 11/16/17 05:00 Absolute Nucleated RBC 0 10^3/ul 11/16/17 05:00 Nucleated RBC % 0 11/16/17 05:00 INR (Anticoag Therapy) 1.21 (0.77-1.02) H 11/16/17 05:00 Sodium 138 mmol/L (139-145) L 11/16/17 05:00 Potassium 4.4 mmol/L (3.5-5.0) 11/16/17 05:00 Chloride 108 mmol/L (101-111) 11/16/17 05:00 Carbon Dioxide 22 mmol/L (22-32) 11/16/17 05:00 Anion Gap 8 mmol/L (2-11) 11/16/17 05:00 BUN 57 mg/dL (6-24) H 11/16/17 05:00 Creatinine 3.06 mg/dL (0.67-1.17) H 11/16/17 05:00 Est GFR ( Amer) 26.0 (>60) 11/16/17 05:00 Est GFR (Non-Af Amer) 20.2 (>60) 11/16/17 05:00 BUN/Creatinine Ratio 18.6 (8-20) 11/16/17 05:00 Glucose 209 mg/dL (70-100) H 11/16/17 05:00 POC Glucose (mg/dL) 356 mg/dL (70-100) H 11/16/17 11:42 Calcium 8.2 mg/dL (8.6-10.3) L 11/16/17 05:00 Ur Random Creatinine 70.70 mg/dL 11/15/17 16:40 Ur Random Sodium 66 mmol/L 11/15/17 16:40 Blood Type O Positive 11/15/17 05:47 Antibody Screen Negative 11/15/17 05:47 Crossmatch See Detail 11/15/17 05:47 General: Well appearing, NAD RLE: Right hip dressing changed, incision CDI without surrounding erythema. Thigh soft. DF/PF intact. DP2+. Capillary refill less than two seconds and sensation intact distally. BL LE: Calves supple and nontender without erythema, edema or palpable cords Assessment: []POD 2 sp Right total hip arthroplasty Acute bloodloss anemia Plan: []WBAT PT/OT Lovenox, coumadin 6 mg today Likely DC tomorrow
--- NOTE | 2017-11-16 16:50 | PN ---
Subjective Date of Service: 11/16/17 Interval History: Patient seen and examined. OOB to chair, napping, easily arousable. No acute overnight events. Tolerated blood transfusion without issue. Denies SOB, no chest pain, no fatigue or headache. Feeling well, surgical pain well controlled. Objective Active Medications: Acetaminophen (Tylenol Tab*) 650 mg PO Q4H PRN PRN Reason: PAIN OR TEMPERATURE Last Admin: 11/15/17 17:21 Dose: 650 mg Atorvastatin Calcium (Lipitor*) 40 mg PO BEDTIME [facility] Last Admin: 11/15/17 20:37 Dose: 40 mg Bisacodyl (Dulcolax Supp*) 10 mg [place] DAILY PRN PRN Reason: constipation Chlorthalidone (Hygroton Tab*) 25 mg PO QAM [facility] Last Admin: 11/16/17 09:27 Dose: 25 mg Cyclobenzaprine HCl (Flexeril Tab*) 5 mg PO TID PRN PRN Reason: SPASMS Dextrose (D50w Syringe 50 Ml*) 12.5 gm IV PUSH .FOR FS < 60 - SS PRN PRN Reason: FS < 60 Diltiazem HCl (Cardizem Cd Cap*) 240 mg PO QPM [facility] Last Admin: 11/15/17 17:20 Dose: 240 mg Diphenhydramine HCl (Benadryl Iv*) 25 mg IV Q6H PRN PRN Reason: itching Docusate Sodium (Colace Cap*) 100 mg PO BID [facility] Last Admin: 11/16/17 09:27 Dose: 100 mg Enoxaparin Sodium (Lovenox(*)) 30 mg SUBCUT Q24H [facility] Last Admin: 11/16/17 12:05 Dose: 30 mg Lactated Ringer's (Lactated Ringers 1000 Ml Bag*) 1,000 mls @ 75 mls/hr IV PER RATE [facility] Last Admin: 11/15/17 07:15 Dose: 75 mls/hr Insulin Glargine (Lantus(*)) 20 units SUBCUT Q24H [facility] Insulin Human Lispro (Humalog*) 0 units SUBCUT ACHS [facility] PRN Reason: Protocol Last Admin: 11/16/17 12:05 Dose: 10 units Lactulose (Lactulose*) 30 ml PO Q6H PRN PRN Reason: constipation Magnesium Hydroxide (Milk Of Magnesia Liq*) 30 ml PO BID [facility] Last Admin: 11/16/17 09:27 Dose: 30 ml Magnesium Hydroxide (Milk Of Magnesia Liq*) 30 ml PO Q6H PRN PRN Reason: constipation Morphine Sulfate (Morphine Inj (Syringe)*) 2 mg IV Q2H PRN PRN Reason: PAIN Multivitamins (Theragran Tab*) 1 tab PO DAILY [facility] Last Admin: 11/16/17 09:27 Dose: 1 tab Omeprazole (Prilosec Cap*) 20 mg PO 1630 [facility] Last Admin: 11/15/17 17:20 Dose: 20 mg Ondansetron HCl (Zofran 40 Mg Vial*) 4 mg IV Q6H PRN PRN Reason: nausea Oxycodone HCl (Roxycodone Tab*) 10 mg PO Q4H PRN PRN Reason: PAIN - SEVERE Oxycodone/Acetaminophen (Percocet 5/325 Tab*) 2 tab PO Q4H PRN PRN Reason: PAIN Last Admin: 11/16/17 09:27 Dose: 2 tab Oxycodone/Acetaminophen (Percocet 5/325 Tab*) 1 tab PO Q4H PRN PRN Reason: PAIN Pharmacy Profile Note (Coumadin Daily Reminder*) 1 note FOLLOW UP 1700 [facility] Warfarin Sodium (Coumadin Tab(*)) 6 mg PO ONCE@1700 ONE PRN Reason: Protocol Stop: 11/16/17 17:01 Vital Signs - 8 hr 11/16/17 11/16/17 11/16/17 09:27 11:02 11:57 Temperature 98.0 F Pulse Rate 68 Respiratory 18 18 Rate Blood Pressure 128/51 (mmHg) O2 Sat by Pulse 96 Oximetry Oxygen Devices in Use Now: None Appearance: Alert, NAD Ears/Nose/Mouth/Throat: Mucous Membranes Moist Neck: NL Appearance and Movements; NL JVP, Trachea Midline Respiratory: Symmetrical Chest Expansion and Respiratory Effort Cardiovascular: RRR, No Edema Abdominal: NL Sounds; No Tenderness; No Distention, - - passing flatus Extremities: No Clubbing, Cyanosis Skin: No Rash or Ulcers Neurological: Alert and Oriented x 3, NL Muscle Strength and Tone Nutrition: Taking PO's Result Diagrams: 11/16/17 05:00 11/16/17 05:00 Assess/Plan/Problems-Billing Assessment: This is a 71 yo male with a PMH of DM-2 insulin dependent, Chronic anemia, B12 deficiency, CKD, HTN, afib on coumadin who underwent an elective right total hip replacement with Dr. Ruiz on 11/14. - Patient Problems (1) Status post total hip replacement, right Code(s): Z96.641 - PRESENCE OF RIGHT ARTIFICIAL HIP JOINT SNOMED Code(s): 515395135653 Comment: - POD2 - POC as per ortho service - Continue DVT prophy with coumadin bridge - Pain control, bowel regimen, OOB with PT/OT (2) Anemia Code(s): D64.9 - ANEMIA, UNSPECIFIED SNOMED Code(s): 001287257 Comment: - Acute on chronic - HgB stable today at 8.0 after 2 units PRBCs - Asymptomatic (3) CKD (chronic kidney disease) stage 3, GFR 30-59 ml/min Code(s): N18.3 - CHRONIC KIDNEY DISEASE, STAGE 3 (MODERATE) SNOMED Code(s): 871276532 Comment: - Creat 2.74 last month - Likely pre-renal dehydration - continue gentle IVF while inpatient - No nephrotoxic meds (4) Diabetes mellitus with insulin therapy Code(s): E11.9 - TYPE 2 DIABETES MELLITUS WITHOUT COMPLICATIONS; Z79.4 - HALFWAY (CURRENT) USE OF INSULIN SNOMED Code(s): 786860289 Comment: - Hold oral DM meds - FSBG ACHS with Lispro SS - Lantus increased last night but sugar remains high, will increase to 20 units tonight (5) Hypertension Code(s): I10 - ESSENTIAL (PRIMARY) HYPERTENSION SNOMED Code(s): 06261084 Comment: - Continue Cardizem and Chlorthalidone (6) Paroxysmal atrial fibrillation Code(s): I48.0 - PAROXYSMAL ATRIAL FIBRILLATION SNOMED Code(s): 878044130 Comment: - Rate and rhythm regular - Continue cardizem and coumadin Status and Disposition: Medically stable for DC at ortho's discretion, likely tomorrow.
[2017-11-16] MEDS ORDERED: Warfarin TAB(*) 6 MG PO ONE (17:00)
[2017-11-16] MEDS: Diltiazem CD CAP* 240 MG PO SCH (18:08)
[2017-11-16] MEDS: Omeprazole CAP* 20 MG PO SCH (18:08)
[2017-11-16] MEDS ORDERED: Insulin GLARGINE(*) 1 UNITS UNIT SUBCUT SCH (21:00)
[2017-11-16] MEDS: Atorvastatin* 40 MG TAB PO SCH (22:13)
[2017-11-17 05:42] LABS: Hematocrit 25 % (42-52); Hemoglobin 8.1 g/dl (14.0-18.0); Mean Platelet Volume 8.1 um3 (7.4-10.4); Platelet Count 283 10^3/ul (150-450)
[2017-11-17 05:48] LABS: INR 1.25 (0.77-1.02)
[2017-11-17] MEDS ORDERED: Scopolamine PATCH Remove* 1 NOTE MISC PATCH OFF ONE (05:48)
[2017-11-17 07:44] VITALS: BP 150/59
[2017-11-17] MEDS: Insulin LISPRO* 1 UNITS UNIT SUBCUT SCH (08:19)
[2017-11-17] MEDS: Chlorthalidone TAB* 50 MG PO SCH (09:15)
[2017-11-17] MEDS: Vitamin THERAPEUTIC TAB PO SCH (09:16)
[2017-11-17] MEDS: Docusate CAP* 100 MG PO SCH (09:16)
[2017-11-17] MEDS: Magnesium Hydroxide LIQ* 30 ML UDC PO SCH (09:17)
--- NOTE | 2017-11-17 09:59 | PN ---
Progress Note - Progress Note Date of Service: 11/17/17 SOAP: Subjective: 71 y/o male s/p R REMBERTO 11/[address] Ruiz. Patient feeing well, pain controlled, eager for D/C to home. Denies SOB, chest pain. VSS afebrile overnight. Objective: General- Well appearing, NAD AO resting comfortably in bed MSK- RLE- dressing removed, i c/d/i, minimal ecchymosis, no erythema, no induration. redressed. neg homans. PT 2+, SITLT. Vital Signs Temp 97.8 F 11/17/17 07:14 Pulse 71 11/17/17 07:14 Resp 16 11/17/17 07:14 BP 150/59 11/17/17 07:14 Pulse Ox 97 11/17/17 07:14 Intake & Output 11/16/17 11/17/17 11/17/17 18:59 06:59 18:59 Intake Total 575 700 480 Output Total 850 2200 Balance -275 -1500 480 Intake: Oral 575 700 480 Output: Burgess 850 2200 Other: # Bowel Movements 0 Assessment: POD 3 sp Right total hip arthroplasty Acute bloodloss anemia Plan: - WBAT - PT/OT - Lovenox, coumadin 8 mg today - D/C to home Today - Follow up with Dr. Ruiz within 10-14 days - ANemia- stable s/p 2 unitx 11/15. asymptomatic Acetaminophen (Tylenol Tab*) 650 mg PO Q4H PRN PRN Reason: PAIN OR TEMPERATURE Last Admin: 11/15/17 17:21 Dose: 650 mg Atorvastatin Calcium (Lipitor*) 40 mg PO BEDTIME [facility] Last Admin: 11/16/17 22:13 Dose: 40 mg Bisacodyl (Dulcolax Supp*) 10 mg TX DAILY PRN PRN Reason: constipation Chlorthalidone (Hygroton Tab*) 25 mg PO QAM [facility] Last Admin: 11/17/17 09:15 Dose: 25 mg Cyclobenzaprine HCl (Flexeril Tab*) 5 mg PO TID PRN PRN Reason: SPASMS Dextrose (D50w Syringe 50 Ml*) 12.5 gm IV PUSH .FOR FS < 60 - SS PRN PRN Reason: FS < 60 Diltiazem HCl (Cardizem Cd Cap*) 240 mg PO QPM [facility] Last Admin: 11/16/17 18:08 Dose: 240 mg Diphenhydramine HCl (Benadryl Iv*) 25 mg IV Q6H PRN PRN Reason: itching Docusate Sodium (Colace Cap*) 100 mg PO BID [facility] Last Admin: 11/17/17 09:16 Dose: 100 mg Enoxaparin Sodium (Lovenox(*)) 30 mg SUBCUT Q24H [facility] Last Admin: 11/16/17 12:05 Dose: 30 mg Lactated Ringer's (Lactated Ringers 1000 Ml Bag*) 1,000 mls @ 75 mls/hr IV PER RATE [facility] Last Admin: 11/15/17 07:15 Dose: 75 mls/hr Insulin Glargine (Lantus(*)) 20 units SUBCUT Q24H [facility] Last Admin: 11/16/17 22:13 Dose: 20 units Insulin Human Lispro (Humalog*) 0 units SUBCUT ACHS [facility] PRN Reason: Protocol Last Admin: 11/17/17 08:19 Dose: 2 units Lactulose (Lactulose*) 30 ml PO Q6H PRN PRN Reason: constipation Magnesium Hydroxide (Milk Of Magnesia Liq*) 30 ml PO BID [facility] Last Admin: 11/17/17 09:17 Dose: 30 ml Magnesium Hydroxide (Milk Of Magnesia Liq*) 30 ml PO Q6H PRN PRN Reason: constipation Morphine Sulfate (Morphine Inj (Syringe)*) 2 mg IV Q2H PRN PRN Reason: PAIN Multivitamins (Theragran Tab*) 1 tab PO DAILY [facility] Last Admin: 11/17/17 09:16 Dose: 1 tab Omeprazole (Prilosec Cap*) 20 mg PO 1630 [facility] Last Admin: 11/16/17 18:08 Dose: 20 mg Ondansetron HCl (Zofran 40 Mg Vial*) 4 mg IV Q6H PRN PRN Reason: nausea Oxycodone HCl (Roxycodone Tab*) 10 mg PO Q4H PRN PRN Reason: PAIN - SEVERE Oxycodone/Acetaminophen (Percocet 5/325 Tab*) 2 tab PO Q4H PRN PRN Reason: PAIN Last Admin: 11/16/17 18:09 Dose: 2 tab Oxycodone/Acetaminophen (Percocet 5/325 Tab*) 1 tab PO Q4H PRN PRN Reason: PAIN Pharmacy Profile Note (Coumadin Daily Reminder*) 1 note FOLLOW UP 1700 [facility] Last Admin: 11/16/17 18:09 Dose: 1 note
--- NOTE | 2017-11-18 05:52 | DS ---
DISCHARGE SUMMARY: DATE OF ADMISSION: 11/14/17 DATE OF DISCHARGE: 11/17/17 ATTENDING PROVIDER: Dr. Ruiz * (DICTATED BY ELIZABETH BAER) CHIEF COMPLAINT: Bilateral hip pain. DISCHARGE DIAGNOSES: 1. Status post right total hip arthroplasty. 2. History of prostate cancer. 3. Type 2 diabetes. 4. Hypertension. 5. Hypercholesterolemia. 6. Chronic kidney disease, stage 3. 7. Hyperlipidemia. 8. Vitamin B12 deficiency. 9. Chronic anemia. 10. Obesity. BRIEF HISTORY: Mr. Montilla is a very pleasant 71-year-old gentleman with chronic bilateral hip pain that has become more severe over the past year and is worse in his right hip. He tried anti-inflammatories, physical therapy, and other conservative treatment, however, had no relief and elected to undergo a right total hip replacement by Dr. Mandi Ruiz on 11/14/17. HOSPITAL COURSE: The patient was admitted to [facility] on 11/14/17 where he underwent right total hip arthroplasty without complications with an estimated blood loss of 500 cc. The patient recovered on the surgical short stay unit. The patient has urinary retention and has a chronic indwelling Burgess catheter, which remains in place throughout his hospital stay. His labs and vital signs remained stable. He was working well with physical therapy and occupational therapy. His DVT prophylaxis was managed with Lovenox in-house as well as Coumadin. His pain was controlled well with p.o. Percocet without significant side effects. On postoperative day 3, the patient was orthopedically and medically stable for discharge to go home with home services. PHYSICAL EXAMINATION: General: Well appearing, in no acute distress. Alert and oriented. Resting comfortably in bed. Temperature 97.8, pulse 71, respirations 16, blood pressure 150/59, pulse oxygenation 97% on room air. Musculoskeletal Examination: Right lower extremity, the surgical dressing was removed. The incision was clean, dry, and intact with minimal ecchymosis. No erythema or induration seen. The area was redressed without difficulty. Negative Homans' sign bilaterally. Posterior tibial pulse is 2+. Sensation intact to bilateral light touch. LABORATORY DATA: H and H of 8.1 and 25. DISCHARGE MEDICATIONS: 1. Vitamin C 500 mg 2 tablets p.o. q.a.m. 2. Atorvastatin 40 mg p.o. q.h.s. 3. Hygroton 25 mg p.o. q.a.m. 4. Cartia XT 240 mg p.o. q.a.m. 5. Colace 100 mg p.o. b.i.d. 6. Insulin Humulin KwikPen 14 units subcutaneously q.p.m. 7. Centrum Silver multivitamin 1 tablet p.o. q.a.m. 8. Prilosec 20 mg p.o. q.p.m. 9. Percocet 5/325 one to two tablets every 4 to 6 hours as needed for pain. 10. Trazodone 50 mg p.o. q.h.s. 11. Coumadin 2 mg p.o., per physician's instructions, daily at 5 p.m. CONDITION ON DISCHARGE: Stable. DISCHARGE INSTRUCTIONS: Mr. Montilla is a very pleasant 71-year-old gentleman status post right total hip arthroplasty, which was complicated by acute postoperative anemia. The patient did receive 2 packed units of red blood cells on 11/14/17 with an appropriate response. His H and H have remained stable since this timeframe and the patient has remained asymptomatic. He will be discharged home today with VNS services and home PT. He is to continue taking Coumadin for DVT prophylaxis. He will take 8 mg on 11/17/17, 8 mg on 11/18/17, 6 mg on 11/19/17 with an INR check on 11/20/17. The patient was instructed to continue to do his hip precautions and voiced full understanding. He will continue to take Percocet as needed for pain control as well as Tylenol not to exceed more than 4000 mg of Tylenol on a daily basis. He was cleared to shower but was told not to submerge or soak the wound. He should continue to do his PT exercises as shown in the hospital. He will follow up with Dr. Ruiz in approximately 10 days for incision check and possible outpatient physical therapy. He will call us with any redness, erythema, increased pain or drainage in his incision sites, and will go to the ER immediately with any chest pain or shortness of breath. The patient and his family voiced full understanding. They will call with any questions or concerns if they have. HERMANN LEVINE, ELIZABETH [id number]/[facility] #: [id number] NIKKI
== END 2017-11-17 11:05 | disposition home or self-care (01) | DRG 470 ==
LOC: AA 08:20 → SSU 17:03
PROVIDERS: ADMIT Orthopaedic Surgery Adult Reconstructive Orthopaedic Surgery; ATTEND Orthopaedic Surgery Adult Reconstructive Orthopaedic Surgery
PROC: 0SR902A Replacement of Right Hip Joint with Metal on Polyethylene Synthetic Substitute, Uncemented, Open Approach (ICD-10-PCS; principal; 2017-11-14 12:00)
PROC: 30233N1 Transfusion of Nonautologous Red Blood Cells into Peripheral Vein, Percutaneous Approach (ICD-10-PCS; 2017-11-15)
DX: M16.11 Unilateral primary osteoarthritis, right hip (principal); D62 Acute posthemorrhagic anemia; G89.29 Other chronic pain; E78.00 Pure hypercholesterolemia, unspecified; N18.3 Chronic kidney disease, stage 3 (moderate); K21.9 Gastro-esophageal reflux disease without esophagitis; E66.9 Obesity, unspecified; E11.22 Type 2 diabetes mellitus with diabetic chronic kidney disease; I12.9 Hypertensive chronic kidney disease with stage 1 through stage 4 chronic kidney disease, or unspecified chronic kidney disease; E53.8 Deficiency of other specified B group vitamins; M25.751 Osteophyte, right hip; I45.10 Unspecified right bundle-branch block; G47.30 Sleep apnea, unspecified; I48.0 Paroxysmal atrial fibrillation; Z88.8 Allergy status to other drugs, medicaments and biological substances; Z83.3 Family history of diabetes mellitus; Z80.9 Family history of malignant neoplasm, unspecified; Z87.891 Personal history of nicotine dependence; Z85.46 Personal history of malignant neoplasm of prostate; Z79.4 Long term (current) use of insulin; Z79.01 Long term (current) use of anticoagulants; Z68.28 Body mass index [BMI] 28.0-28.9, adult; Z87.442 Personal history of urinary calculi; I25.2 Old myocardial infarction; Z98.49 Cataract extraction status, unspecified eye
CPT/HCPCS: 36415; 80048; 82570; 84300; 85014; 85018; 85025; 85049; 85610; 86850; 86900; 86901; 86922; 88304; 88311; A9270-GY; C1713; C1776; G8978-GP-CJ; G8979-GP-CI; G8987-GO-CL; G8988-GO-CJ; J0690; J1650; J2250; J2405; J2704; J2795; J3010; P9040

== ENCOUNTER 2017-12-12 13:42 | Emergency (ER) | payer MEDICARE ==
[2017-12-12 14:36] LABS: ABS Basophils 0.1 10^3/ul (0-0.2); ABS Eosinophils 0.2 10^3/ul (0-0.6); ABS Lymphocytes 0.7 10^3/ul (1.0-4.8); ABS Monocytes 0.5 10^3/ul (0-0.8); ABS Neutrophils 3.8 10^3/ul (1.5-7.7); ABS Nucleated RBC 0 10^3/ul; Eosinophil % 4.3 % (0-6); Hematocrit 22 % (42-52); Hemoglobin 7.3 g/dl (14.0-18.0); Lymphocyte % 12.7 % (25-47); Mean Corpuscular HGB Conc 33 g/dl (31-36); Mean Corpuscular Hemoglobin 28 pg (27-31); Mean Corpuscular Volume 84 fL (80-94); Mean Platelet Volume 7.4 um3 (7.4-10.4); Nucleated Red Blood Cells % 0; Platelet Count 307 10^3/ul (150-450); Red Blood Count 2.63 10^6/ul (4.00-5.40); Red Cell Distribution Width 15 % (10.5-15); White Blood Count 5.3 10^3/ul (3.5-10.8)
[2017-12-12 14:52] LABS: INR 1.96 (0.77-1.02)
[2017-12-12 15:10] LABS: EGFR Non-African American 21.8 (>60)
[2017-12-12] MEDS ORDERED: Enoxaparin(*) 100 MG/ML SYR SUBCUT ONE (17:20)
[2017-12-12 17:52] VITALS: BP 169/74
--- NOTE | 2017-12-15 10:42 | ED ---
Grady Fagan Angela, scribed for Masood Curiel MD on 12/12/17 at 1402 . Lower Extremity - HPI Summary HPI Summary: This pt is a 71 y/o male presenting to [facility] for right leg pain, swelling, and redness for a few days now. Pt reports he had a total right hip replacement done by Dr. Ruiz on 11/14/17. He states he went to get an outpatient US today that showed a blood clot on right leg. He denies chest pain, SOB, fever. Pt is anticoagulated on Coumadin. - History of Current Complaint Chief Complaint: EDExtremityLower Stated Complaint: RT LEG PAIN Time Seen by Provider: 12/12/17 13:58 Hx Obtained From: Patient Mechanism Of Injury: Other - no trauma or injury Onset of Pain: Days Onset/Duration: Days Severity Currently: Mild Pain Intensity: 2 Pain Scale Used: 0-10 Numeric Timing: Lasting Days Location: Is Discrete @ - right leg Associated Signs And Symptoms: Positive: Swelling, Redness. Negative: Fever, Weakness, Abdominal Pain Aggravating Factor(s): Nothing Alleviating Factor(s): Nothing Able to Bear Weight: Yes Related History: Other - s/p total right hip replacement on 11/14/17 - Allergies/Home Medications Allergies/Adverse Reactions: Allergies Allergy/AdvReac Type Severity Reaction Status Date / Time codeine Allergy tongue Verified 12/12/17 13:46 swells hydrochlorothiazide Allergy increased Verified 12/12/17 13:46 [From Zestoretic] bun/ cr indapamide Allergy hypotension Verified 12/12/17 13:46 lisinopril Allergy Rash Verified 12/12/17 13:46 Home Medications: Home Medications Ascorbic Acid TAB* [Vitamin C TAB*] 500 mg PO DAILY 12/12/17 [History Confirmed 12/12/17] Atorvastatin* [Lipitor*] 40 mg PO BEDTIME 12/12/17 [History Confirmed 12/12/17] Chlorthalidone TAB* [Hygroton TAB*] 25 mg PO QAM 12/12/17 [History Confirmed 06/19] Ferrous Sulfate TAB* 325 mg PO DAILY 12/12/17 [History Confirmed 12/12/17] Insulin NPH Human Isophane [Humulin N Kwikpen] 14 unit SUBCUT BEDTIME 12/12/17 [ History Confirmed 12/12/17] Multivit-Mins/Iron/Folic/Lycop [Centrum Ultra Mens] 1 tab PO DAILY 12/12/17 [ History Confirmed 12/12/17] Omeprazole CAP* [Prilosec CAP* 20 MG] 20 mg PO BEDTIME 12/12/17 [History Confirmed 12/12/17] Warfarin TAB(*) [Coumadin TAB(*)] 3 mg PO EVERY OTHER DAY 12/12/17 [History Confirmed 12/12/17] Warfarin TAB(*) [Coumadin TAB(*)] 4 mg PO EVERY OTHER DAY 12/12/17 [History Confirmed 12/12/17] dilTIAZem HCl [Cartia Xt] 240 mg PO BEDTIME 12/12/17 [History Confirmed 12/12/17 ] glipiZIDE TAB* [Glucotrol TAB*] 10 mg PO BID 12/12/17 [History Confirmed ] traMADol TAB* [Ultram*] 50 mg PO Q4H PRN MDD 6 tablets 12/12/17 [History Confirmed 12/12/17] traZODone TAB* [Desyrel TAB*] 50 mg PO BEDTIME 12/12/17 [History Confirmed 12/12] PMH/Surg Hx/FS Hx/Imm Hx Endocrine/Hematology History: Reports: Hx Anticoagulant Therapy - warfarin, Hx Diabetes, Hx Anemia Denies: Hx Sickle Cell Disease Cardiovascular History: Reports: Hx Coronary Artery Disease - mild pepe carotid plaque, Hx Hypertension, Other Cardiovascular Problems/Disorders - HX OF A-FIB Denies: Hx Pacemaker/ICD Respiratory History: Reports: Hx Sleep Apnea Denies: Other Respiratory Problems/Disorders GI History: Reports: Hx Gastroesophageal Reflux Disease, Hx Irritable Bowel Denies: Hx Jaundice, Other GI Disorders History: Reports: Hx Kidney Infection, Hx Kidney Stones, Hx Renal Disease, Other Problems/Disorders - INDWELLING CATHETER, STENT RIGHT & LEFT URETER, HX OF PROSTATE CANCER Musculoskeletal History: Reports: Hx Arthritis - back,, Hx Back Problems - herniated discs/sx Denies: Other Musculoskeletal History Sensory History: Reports: Hx Cataracts - pepe, Hx Contacts or Glasses - GLASSES Denies: Hx Hearing Aid Opthamlomology History: Reports: Hx Cataracts - pepe, Hx Contacts or Glasses - GLASSES Neurological History: Denies: Other Neuro Impairments/Disorders Psychiatric History: Reports: Hx Depression Denies: Hx Panic Disorder - Cancer History Cancer Type, Location and Year: PROSTATE Hx Chemotherapy: Yes - Surgical History Surgery Procedure, Year, and Place: [id number] MULTIPLE BILATERAL RETROGRADE WITH CATHETER AND BILATERL URETERAL STENT EXCHANGES, BALLOON DILATION, [facility] [place]. 2012 BILATERAL CATARACT EXTRACTION WITH IOL IMPLANTS, [facility] [place]. 2012 C7-T1 ACDF AND PLATING, [facility] [place]. 2016 DECOMPRESSION LAMINECTOMY L3-4, 4-5, [facility] [place] Hx Anesthesia Reactions: Yes - NAUSEA AND VOMITING - NEEDS PATCH Infectious Disease History: No Infectious Disease History: Denies: Traveled Outside the [place] in Last 30 Days - Family History Known Family History: Positive: Diabetes - Mother. - Social History Alcohol Use: None Hx Substance Use: No Substance Use Type: Reports: None Hx Tobacco Use: Yes - not currently Smoking Status (MU): Former Smoker Type: Cigarettes Amount Used/How Often: 3 PACKS A DAY for 10 years Have You Smoked in the Last Year: No Review of Systems Negative: Fever, Chills Negative: Chest Pain Negative: Shortness Of Breath Musculoskeletal: Other - right leg pain All Other Systems Reviewed And Are Negative: Yes Physical Exam - Summary Physical Exam Summary: VITAL SIGNS: Reviewed. GENERAL: Patient is a well-developed and nourished male who is lying comfortable in the stretcher. Patient is not in any acute respiratory distress. HEAD AND FACE: No signs of trauma. No ecchymosis, hematomas or skull depressions. No sinus tenderness. EYES: PERRLA, EOMI x 2, No injected conjunctiva, no nystagmus. EARS: Hearing grossly intact. Ear canals and tympanic membranes are within normal limits. MOUTH: Oropharynx within normal limits. NECK: Supple, trachea is midline, no adenopathy, no JVD, no carotid bruit, no c- spine tenderness, neck with full ROM. CHEST: Symmetric, no tenderness at palpation LUNGS: Clear to auscultation bilaterally. No wheezing or crackles. CVS: Regular rate and rhythm, S1 and S2 present, no murmurs or gallops appreciated. ABDOMEN: Soft, non-tender. No signs of distention. No rebound no guarding, and no masses palpated. Bowel sounds are normal. EXTREMITIES: FROM in all major joints, no edema, no cyanosis or clubbing. RLE: right leg tenderness. NEURO: Alert and oriented x 3. No acute neurological deficits. Speech is normal and follows commands. SKIN: Dry and warm Triage Information Reviewed: Yes Vital Signs On Initial Exam: Initial Vitals Temp Pulse Resp BP Pulse Ox 98.3 F 75 18 170/69 97 12/12/17 13:44 12/12/17 13:44 12/12/17 13:44 12/12/17 13:44 12/12/17 13:44 Vital Signs Reviewed: Yes Diagnostics - Vital Signs Vital Signs Temp Pulse Resp BP Pulse Ox 12/12/17 13:44 98.3 F 75 18 170/69 97 - Laboratory Result Diagrams: 12/12/17 14:21 12/12/17 14:21 Lab Statement: Any lab studies that have been ordered have been reviewed, and results considered in the medical decision making process. - Additional Comments Diagnostic Additional Comments: Ultrasound of bilateral lower extremity (obtained as an outpatient), as read by radiologist IMPRESSION: 1. No flow is identified within one branch of the right posterior tibial vein suggestive of occlusive thrombus without extension to the popliteal vein. 2. No left lower extremity deep vein thrombosis. Dr. Curiel has reviewed this radiology report. Re-Evaluation - Re-Evaluation First Eval Re-Evaluation Time: 17:10 Comment: Daughter has arrived. Daughter states the pt takes 3 tabs of 2 mg Coumadin a day, in total pt takes 6 mg of Coumadin per day. Lower Extremity Course/Dx - Course Assessment/Plan: Pt is a 71 y/o male, who is currently on Coumadin, who presents with right leg pain, swelling, and redness for a few days now. Pt reports he had a total right hip replacement done by Dr. Ruiz on 11/14/17. He states he went to get an outpatient US today that showed a blood clot on right leg. He denies chest pain, SOB, fever. US of right lower extremity shows 1. No flow is identified within one branch of the right posterior tibial vein suggestive of occlusive thrombus without extension to the popliteal vein. 2. No left lower extremity deep vein thrombosis. The pt is already taking Coumadin and his INR level is 1.8. Therefore I discussed the case with Dr. Daniel , oncologist, who recommends for the pt to stop Coumadin and start on Lovenox 1mg/kg BID. Therefore, the pt was given one dose of Lovenox in the ED and he was given a prescription of Lovenox for home. He will follow up with Dr. Daniel, oncologist, in the next several days. I discussed all the findings and test results with the patient. All questions were answered to patient satisfaction. There were no further complaints or concerns. He is instructed to return to the ED for any worsening or new symptoms. Pt is hemodynamically stable, alert and oriented x3. - Diagnoses Provider Diagnoses: Deep vein thrombosis (DVT) - Physician Notifications Discussed Care Of Patient With: Brennan Daniel Time Discussed With Above Provider: 16:24 Instructed by Provider To: Other - I discussed pt care with Dr. Daniel, oncologist , who reports he will call me back. [17:18] Dr. Daniel recommends to stop Coumadin and start the pt on Lovenox. He reports pt should follow up with him in the next few days. Discharge - Sign-Out/Discharge Documenting (check all that apply): Discharge/Admit/Transfer - Discharge - Discharge Plan Condition: Stable Disposition: HOME Prescriptions: Enoxaparin(*) [Lovenox(*)] 100 mg SUBCUT Q12HR #16 syringe Patient Education Materials: Deep Vein Thrombosis (ED) Referrals: Amando Stein MD [Primary Care Provider] - Brennan Daniel MD [Medical Doctor] - 2 Days Additional Instructions: Please follow up with Dr. Daniel in the next couple of days. RETURN TO THE ED FOR ANY NEW OR WORSENING SYMPTOMS. The documentation as recorded by the Grady de la fuente Angela accurately reflects the service I personally performed and the decisions made by me, Masood Curiel MD.
== END 2017-12-12 17:51 | disposition home or self-care (01) ==
LOC: ED 13:42
DX: I82.441 Acute embolism and thrombosis of right tibial vein (principal); E11.9 Type 2 diabetes mellitus without complications; I10 Essential (primary) hypertension; I25.10 Atherosclerotic heart disease of native coronary artery without angina pectoris; I48.91 Unspecified atrial fibrillation; M19.90 Unspecified osteoarthritis, unspecified site; Z96.641 Presence of right artificial hip joint; Z79.01 Long term (current) use of anticoagulants; Z79.84 Long term (current) use of oral hypoglycemic drugs; Z79.4 Long term (current) use of insulin; Z79.899 Other long term (current) drug therapy; Z87.891 Personal history of nicotine dependence; Z85.46 Personal history of malignant neoplasm of prostate; Z88.5 Allergy status to narcotic agent; Z88.8 Allergy status to other drugs, medicaments and biological substances; R60.0 Localized edema
CPT/HCPCS: 36415; 80053; 85025; 85610; 96372; 99283; J1650

== ENCOUNTER 2018-01-08 10:50 | Inpatient (IN) | payer MEDICARE ==
[2018-01-08 11:52] LABS: ABS Basophils 0 10^3/ul (0-0.2); ABS Eosinophils 0.1 10^3/ul (0-0.6); ABS Lymphocytes 1.3 10^3/ul (1.0-4.8); ABS Monocytes 0.6 10^3/ul (0-0.8); ABS Neutrophils 5.5 10^3/ul (1.5-7.7); ABS Nucleated RBC 0 10^3/ul; Eosinophil % 1.7 % (0-6); Hematocrit 25 % (42-52); Lymphocyte % 17.2 % (25-47); Mean Corpuscular HGB Conc 32 g/dl (31-36); Mean Corpuscular Hemoglobin 27 pg (27-31); Mean Corpuscular Volume 84 fL (80-94); Mean Platelet Volume 8.2 um3 (7.4-10.4); Nucleated Red Blood Cells % 0; Platelet Count 371 10^3/ul (150-450); Red Blood Count 2.97 10^6/ul (4.00-5.40); Red Cell Distribution Width 16 % (10.5-15); White Blood Count 7.6 10^3/ul (3.5-10.8)
[2018-01-08 11:53] LABS: INR 0.98 (0.77-1.02)
[2018-01-08 11:55] LABS: EGFR Non-African American 17.4 (>60)
--- NOTE | 2018-01-08 12:02 | RAD ---
HISTORY: LUE paresis, isolated COMPARISONS: June 14, 2017 TECHNIQUE: Multiple contiguous axial CT scans were obtained of the head without intravenous contrast. Coronal and sagittal multiplanar reformations are also submitted for review. FINDINGS: HEMORRHAGE/INFARCT: There is no hemorrhage or acute infarct. MASSES/SHIFT: There has been interval development of a high attenuation mass along the right superior frontal gyrus posteriorly. This is likely extra-axial. This measures approximately 1.6 x 1.9 x 2.3 cm in size. There is involvement of the adjacent skull with extension to the scalp. There is associated vasogenic edema of the right frontal lobe. There is no shift. EXTRA-AXIAL SPACES: As noted above, there is a 2.3 cm extra axial mass of the right superior frontal gyrus with mass effect upon the adjacent cortex and vasogenic edema. There is extension into the skull and scalp. SULCI AND VENTRICLES: The sulci and ventricles are normal in size and position for the patient's stated age. CEREBRUM: As noted above, there is a right frontal extra axial mass with vasogenic edema the superior frontal gyrus. BRAINSTEM: There are no focal parenchymal abnormalities. CEREBELLUM: There are no focal parenchymal abnormalities. VESSELS: The vessels are grossly normal. PARANASAL SINUSES: The paranasal sinuses are clear. ORBITS: The orbits are unremarkable. BONES AND SOFT TISSUE: Hyperostosis with extension of a extra axial mass into the right frontal skull and scalp. OTHER: None IMPRESSION: 1. THERE IS A 2.3 CM HIGH ATTENUATION MASS ALONG THE RIGHT FRONTAL LOBE. THIS APPEARS TO BE EXTRA-AXIAL. THERE IS INVOLVEMENT OF THE ADJACENT SKULL WITH EXTENSION TO THE SOFT TISSUES OF THE SCALP. THIS IS NEW WHEN COMPARED TO JUNE 14, 2017. 2. THERE IS NO SHIFT. 3. THERE IS MINIMAL ASSOCIATED VASOGENIC EDEMA ADJACENT RIGHT FRONTAL LOBE. 4. WHILE THIS MAY REPRESENT AN AGGRESSIVE/INVASIVE MENINGIOMA, DURAL BASED METASTATIC DISEASE IS ALSO WITHIN THE DIFFERENTIAL IS AN OSSEOUS METASTASIS WITH DURAL AND SOFT TISSUE EXTENSION, GIVEN THE HISTORY OF PROSTATE CANCER.
[2018-01-08] MEDS ORDERED: Dexamethasone IV* 4 MG/ML 1 ML (4 MG) IV SLOW PU ONE (12:23)
[2018-01-08] MEDS ORDERED: levETIRAcetam IV* 1,000 MG in NS 0.9% 100 ML* 100 ML IVPB ONE ×2 (13:00→14:00)
[2018-01-08 14:22] LABS: Urine Appearance Cloudy; Urine Blood 2+ (Negative); Urine Color Yellow; Urine Ketones Negative (Negative); Urine Protein 2+(100 mg/dL) (Negative); Urine Red Blood Cell 3+(>10/hpf) (Absent); Urine Urobilinogen Negative (Negative); Urine White Blood Cell 3+(>20/hpf) (Absent)
[2018-01-08] MEDS ORDERED: Magnesium Hydroxide LIQ* 30 ML UDC PO PRN (14:25)
[2018-01-08] MEDS ORDERED: Al Hydrox/Mg Hydrox/Simet LIQ* 30 ML UDC PO PRN (14:25)
[2018-01-08] MEDS ORDERED: Morphine VIAL* 4 MG/ML VIAL (1 ml vial) IV PRN (14:25)
[2018-01-08] MEDS ORDERED: Albuterol 2.5 MG/3 ML NEB.SOL* (0.083%) INH PRN (14:25)
[2018-01-08] MEDS ORDERED: Ondansetron INJ* 2 MG/ML VIAL IV PRN (14:25)
[2018-01-08] MEDS ORDERED: oxyCODONE/Acetamin 5/325 MG* TAB PO PRN (14:25)
[2018-01-08] MEDS ORDERED: traMADol TAB* 50 MG PO PRN (14:29)
[2018-01-08] MEDS ORDERED: Enoxaparin(*) 100 MG/ML SYR SUBCUT SCH (15:00)
--- NOTE | 2018-01-08 15:40 | RAD ---
INDICATION: Weakness. COMPARISON: Comparison is made with a prior study from November 01, 2017. TECHNIQUE: A portable view of the chest was obtained. FINDINGS: Cardiac and mediastinal contours appear to be within normal limits. The lungs are underinflated and grossly clear. No pleural effusion is seen. IMPRESSION: NO EVIDENCE FOR ACUTE DISEASE.
--- NOTE | 2018-01-08 16:11 | ED ---
Valentin Fagan Jacob, scribed for Vamsi Gordon MD on 01/08/18 at 1137 . Neurological HPI - HPI Summary HPI Summary: Pt is a 72 y/o M w/ c/o numbness and weakness in left arm onsetting Monday morning. Pt went to bed Monday feeling fine. Pt saw PCP today, who was concerned and sent pt to ED. Inability to move has stayed constant since onset. Pt notes he can move slightly but not very well. He notes that he has a dome shaped mass present on top of head for past month. He denies pain and notes that he is a little slow but walking fine and not stumbling. He reports no trouble with speaking and denies fever, visual problems, HAs, SOB, abdominal pain, emesis. Pt has a Hx of kidney problems, two stents in kidneys, catheter is present. He has Hx of kidney stones. Stents were for renal failure. He denies previous heart disease and neurological disease. - History of Current Complaint Chief Complaint: EDWeakness Stated Complaint: LT ARM NUMBNESS Time Seen by Provider: 01/08/18 11:09 Hx Obtained From: Patient Onset/Duration: Started days ago - 1 day ago in the morning, Still Present Timing: Constant Current Severity: None - denies pain Neurological Deficit Location: LUE - difficulty moving left arm Pain Intensity: 0 Pain Scale Used: 0-10 Numeric - 0/10 Character: Numbness/Tingling - left arm, Motor Weakness - left arm Aggravating: Nothing Alleviating: Nothing - Additional Pertinent History Primary Care Physician: [id number] - Allergy/Home Medications Allergies/Adverse Reactions: Allergies Allergy/AdvReac Type Severity Reaction Status Date / Time codeine Allergy tongue Verified 01/08/18 10:55 chris hydrochlorothiazide Allergy increased Verified 01/08/18 10:55 [From Zestoretic] bun/ cr indapamide Allergy hypotension Verified 01/08/18 10:55 lisinopril Allergy Rash Verified 01/08/18 10:55 PMH/Surg Hx/FS Hx/Imm Hx Endocrine/Hematology History: Reports: Hx Anticoagulant Therapy - warfarin, Hx Diabetes, Hx Anemia Denies: Hx Sickle Cell Disease Cardiovascular History: Reports: Hx Coronary Artery Disease - mild pepe carotid plaque, Hx Hypertension, Other Cardiovascular Problems/Disorders - HX OF A-FIB Denies: Hx Pacemaker/ICD Respiratory History: Reports: Hx Sleep Apnea Denies: Other Respiratory Problems/Disorders GI History: Reports: Hx Gastroesophageal Reflux Disease, Hx Irritable Bowel Denies: Hx Jaundice, Other GI Disorders History: Reports: Hx Kidney Infection, Hx Kidney Stones, Hx Renal Disease, Other Problems/Disorders - INDWELLING CATHETER, STENT RIGHT & LEFT URETER, HX OF PROSTATE CANCER Musculoskeletal History: Reports: Hx Arthritis - back,, Hx Back Problems - herniated discs/sx Denies: Other Musculoskeletal History Sensory History: Reports: Hx Cataracts - pepe, Hx Contacts or Glasses - GLASSES Denies: Hx Hearing Aid Opthamlomology History: Reports: Hx Cataracts - pepe, Hx Contacts or Glasses - GLASSES Neurological History: Denies: Other Neuro Impairments/Disorders Psychiatric History: Reports: Hx Depression Denies: Hx Panic Disorder - Cancer History Cancer Type, Location and Year: PROSTATE Hx Chemotherapy: Yes - Surgical History Surgery Procedure, Year, and Place: [id number] MULTIPLE BILATERAL RETROGRADE WITH CATHETER AND BILATERL URETERAL STENT EXCHANGES, BALLOON DILATION, [facility] [place]. 2012 BILATERAL CATARACT EXTRACTION WITH IOL IMPLANTS, [facility] [place]. 2012 C7-T1 ACDF AND PLATING, [facility] [place]. 2016 DECOMPRESSION LAMINECTOMY L3-4, 4-5, [facility] [place] Hx Anesthesia Reactions: Yes - NAUSEA AND VOMITING - NEEDS PATCH Infectious Disease History: No Infectious Disease History: Denies: Traveled Outside the [place] in Last 30 Days - Family History Known Family History: Positive: Diabetes - Mother. - Social History Alcohol Use: None Hx Substance Use: No Substance Use Type: Reports: None Hx Tobacco Use: Yes - not currently Smoking Status (MU): Former Smoker Type: Cigarettes Amount Used/How Often: 3 PACKS A DAY for 10 years Have You Smoked in the Last Year: No Review of Systems Negative: Fever Positive: Other - NEGATIVE: changes in vision Negative: Shortness Of Breath Negative: Abdominal Pain, Vomiting Positive: Decreased ROM - difficulty moving left arm Neurological: Other - NEGATIVE: abnormal gait Positive: Weakness - left arm, Numbness - left arm. Negative: Headache All Other Systems Reviewed And Are Negative: Yes Physical Exam - Summary Physical Exam Summary: Appearance: Well-appearing, Well-nourished, lying in bed comfortably Skin: Warm, dry, no obvious rash Eyes: sclera anicteric, no conjunctival pallor ENT: mucous membranes moist, pharynx appears normal Neck: Supple, nontender Respiratory: Clear to auscultation, no signs of respiratory distress Cardiovascular: Normal S1, S2. No murmurs. Normal distal pulses in tibial and radial bilaterally. Abdomen: Soft, nontender, normal active bowel sounds present Musculoskeletal: Normal except for following: Left arm has marked paresis, cannot lift off bed, some home agent strength preserved. Cannot flex elbows for left arm. Cannot shrug shoulder on the left. Neurological: A&Ox3, awake and alert, mentation is normal, speech is fluent and appropriate Psychiatric: affect is normal, does not appear anxious or depressed Triage Information Reviewed: Yes Vital Signs On Initial Exam: Initial Vitals Temp Pulse Resp BP Pulse Ox 98.3 F 78 18 140/56 98 01/08/18 10:53 01/08/18 10:53 01/08/18 10:53 01/08/18 10:53 01/08/18 10:53 Vital Signs Reviewed: Yes - Nelson Coma Scale Best Eye Response: 4 - Spontaneous Best Motor Response: 6 - Obeys Commands Best Verbal Response: 5 - Oriented Coma Scale Total: 15 Diagnostics - Vital Signs Vital Signs Temp Pulse Resp BP Pulse Ox 01/08/18 10:53 98.3 F 78 18 140/56 98 - Laboratory Lab Results: Lab Results 01/08/18 01/08/18 01/08/18 Range/Units 11:28 11:28 11:28 WBC 7.6 (3.5-10.8) 10^3/ul RBC 2.97 L (4.00-5.40) 10^6/ul Hgb 8.0 L (14.0-18.0) g/dl Hct 25 L (42-52) % MCV 84 (80-94) fL MCH 27 (27-31) pg MCHC 32 (31-36) g/dl RDW 16 H (10.5-15) % Plt Count 371 (150-450) 10^3/ul MPV 8.2 (7.4-10.4) um3 Neut % (Auto) 72.3 (38-83) % Lymph % (Auto) 17.2 L (25-47) % Fajardo % (Auto) 8.2 H (0-7) % Eos % (Auto) 1.7 (0-6) % Baso % (Auto) 0.6 (0-2) % Absolute Neuts (auto) 5.5 (1.5-7.7) 10^3/ul Absolute Lymphs (auto) 1.3 (1.0-4.8) 10^3/ul Absolute Monos (auto) 0.6 (0-0.8) 10^3/ul Absolute Eos (auto) 0.1 (0-0.6) 10^3/ul Absolute Basos (auto) 0 (0-0.2) 10^3/ul Absolute Nucleated RBC 0 10^3/ul Nucleated RBC % 0 INR (Anticoag Therapy) 0.98 (0.77-1.02) Sodium 138 (135-145) mmol/L Potassium 4.7 (3.5-5.0) mmol/L Chloride 111 (101-111) mmol/L Carbon Dioxide 18 L (22-32) mmol/L Anion Gap 9 (2-11) mmol/L BUN 76 H (6-24) mg/dL Creatinine 3.47 H (0.67-1.17) mg/dL Est GFR ( Amer) 21.1 (>60) Est GFR (Non-Af Amer) 17.4 (>60) BUN/Creatinine Ratio 21.9 H (8-20) Glucose 43 L* (70-100) mg/dL Calcium 8.8 (8.6-10.3) mg/dL Total Bilirubin 0.20 (0.2-1.0) mg/dL AST 14 (13-39) U/L ALT 12 (7-52) U/L Alkaline Phosphatase 92 (34-104) U/L Troponin I 0.02 (<0.04) ng/mL Total Protein 7.6 (6.4-8.9) g/dL Albumin 3.7 (3.2-5.2) g/dL Globulin 3.9 (2-4) g/dL Albumin/Globulin Ratio 0.9 L (1-3) Result Diagrams: 01/08/18 11:28 01/08/18 11:28 Lab Statement: Any lab studies that have been ordered have been reviewed, and results considered in the medical decision making process. - CT CT Head CT Interpretation: Positive (See Comments) CT Interpretation Completed By: Radiologist - 1. THERE IS A 2.3 CM HIGH ATTENUATION MASS ALONG THE RIGHT FRONTAL LOBE. THIS APPEARS TO BE EXTRA-AXIAL. THERE IS INVOLVEMENT OF THE ADJACENT SKULL WITH EXTENSION TO THE SOFT TISSUES OF THE SCALP. THIS IS NEW WHEN COMPARED TO JUNE 14, 2017. 2. THERE IS NO SHIFT. 3. THERE IS MINIMAL ASSOCIATED VASOGENIC EDEMA ADJACENT RIGHT FRONTAL LOBE. 4. WHILE THIS MAY REPRESENT AN AGGRESSIVE/INVASIVE MENINGIOMA, DURAL BASED METASTATIC DISEASE IS ALSO WITHIN THE DIFFERENTIAL IS AN OSSEOUS METASTASIS WITH DURAL AND SOFT TISSUE EXTENSION, GIVEN THE HISTORY OF PROSTATE CANCER. THIS REPORT WAS REVIEWED BY ED PHYSICIAN. - EKG 1126 Cardiac Rate: NL - 75 BPM EKG Rhythm: Sinus Rhythm EKG Comparison: Other - NSR at 75 BPM, P waves, QRS complex, and T waves are within normal limits, T waves and intervals are normal, no ischemic changes. This is a normal EKG Course/Dx - Course Course Of Treatment: Elderly man with h/o prostate cancer presents with acute left arm weakness >24 hrs duration associated with new extra axial mass associated with the vertex of the skull, causing some vasogenic edema of the adjacent brain. He also had some focal seizure activity per Dr. Morataya during his interview and exam. He will need admission to further workup the mass, treat associated seizures and brain edema. - Diagnoses Provider Diagnoses: Mass of skull, Muscle left arm weakness - Physician Notifications Discussed Care Of Patient With: Landon Morataya Time Discussed With Above Provider: 12:23 - Recommended neurosurgery consultation Instructed by Provider To: Other - 1310: consult with Dr. Infante, willing to consult on pt. 1321: consult with Dr. Strong, admit to hospital Discharge - Sign-Out/Discharge Documenting (check all that apply): Discharge/Admit/Transfer - Discharge Plan Condition: Fair Disposition: ADMITTED TO [facility] - Billing Disposition and Condition Condition: FAIR Disposition: Admitted to [facility] The documentation as recorded by the Valentin de la fuente Jacob accurately reflects the service I personally performed and the decisions made by , Vamsi Gordon MD.
--- NOTE | 2018-01-08 17:29 | HP ---
ATTENDING ADDENDUM NOW INCLUDED ON THIS REPORT CC: Dr. Stein, Dr. Morataya; Dr. Infante * ADMISSION HISTORY AND PHYSICAL: DATE OF ADMISSION: 01/08/18 ATTENDING HOSPITALIST: Dr. Aguilar Tinoco.* (DICTATED BY ELIZABETH URBINA) PRIMARY CARE PROVIDER: Dr. Amando Stein. CHIEF COMPLAINT: Left upper extremity weakness. HISTORY OF PRESENT ILLNESS: Mr. Montilla is a pleasant 72-year-old gentleman who carries past medical history significant for prostate cancer, insulin-dependent diabetes mellitus, hypertension, hyperlipidemia and chronic kidney disease, who presented to the emergency room today with 2 days' history of worsening left upper extremity weakness. The patient noted that his symptoms started roughly on Monday where he was not able to lift his left upper extremity, but denies any numbness, tingling or other symptoms throughout his body. He denies any headache, dizziness, chest pain or any other associated symptoms. He also notes that he noticed a little bump on his head that has been there for about a month that progressively gotten bigger and he can feel it over the vault of his head that is usually tender on deep palpation. He denies any headache, double vision, seizure activity or any history of CVA or stroke in the past. The patient had laboratory workup in the ED that revealed decreased glucose. He is a known type 2 insulin-dependent diabetic and he reports that he did not have much for breakfast this morning. He denied any dizziness or lightheadedness. He also has a history of prostate cancer about 5 years ago, for which he still takes Lupron hormonal shots at Dr. Cevallos's office and has had an indwelling Burgess catheter for the past few years. The patient had a CT scan of the brain that revealed a suspicious mass measuring approximately 2.3 cm along the right frontal lobe, for which a neurological consult as well as a neurosurgical consult was obtained while the patient in the ED. The patient recently had a right total hip replacement back in October of this year that unfortunately was complicated with deep vein thrombosis few weeks later, for which he has been on Lovenox since then. He has been followed by Dr. Daniel from the oncology office, who reduced his Lovenox dose from 100 mg b.i.d. to 100 mg once daily per the patient. Given the new findings of brain mass, we were asked to see the patient to consider admission as well as neurological workup, possible brain biopsy to be performed by Neurosurgery. PAST MEDICAL HISTORY: As mentioned above, significant for: 1. History of prostate cancer. 2. Insulin-dependent type 2 diabetes mellitus. 3. Hypertension. 4. Hyperlipidemia. 5. Chronic kidney disease, stage 3. 6. Vitamin B12 deficiency. 7. Chronic anemia. 8. Obesity. 9. Atrial fibrillation, for which he originally was on Coumadin, but now on hold due to Lovenox treatment for DVT. 10. GERD. PAST SURGICAL HISTORY: Significant for: 1. Lumbar laminectomy. 2. Cataract surgery. 3. C-spine surgery with Dr. Guillaume. 4. History of kidney stents due to nephrolithiasis. 5. The patient also has history of vascular surgery due to peripheral vascular disease as well as recent right total hip replacement in October of this year. CURRENT MEDICATIONS: His medications at home include: 1. Vitamin C 500 mg p.o. daily. 2. Lipitor 40 mg p.o. q.h.s. 3. Hygroton 25 mg p.o. q.a.m. 4. Diltiazem 240 mg p.o. q.h.s. 5. Ferrous sulfate 325 mg p.o. daily. 6. Glipizide 10 mg p.o. b.i.d. 7. Insulin Humulin 14 units subcu q.p.m. 8. Multivitamin with folic acid 1 tablet p.o. daily. 9. Prilosec 20 mg p.o. daily. 10. Ultram 50 mg p.o. q.6 hours as needed for pain. 11. Desyrel 50 mg p.o. q.h.s. 12. Warfarin, which he takes 3 mg every other day alternating with 4 mg p.o. other days, currently on hold due to treatment with Lovenox for DVT. 13. Lovenox 100 mg subcu once daily. ALLERGIES: Multiple, include CODEINE, HYDROCHLOROTHIAZIDE, LISINOPRIL and INDAPAMIDE. FAMILY HISTORY: Reports family history of diabetes mellitus and cancer on his father's side. SOCIAL HISTORY: The patient is a former smoker who quit approximately 25 years ago. Denies alcohol intake or illicit drug use. He lives at home with his , Talita, who is the healthcare proxy carrier and he wishes to be DNR. His MOLST form is updated and on file. REVIEW OF SYSTEMS: A 14-point review of systems was evaluated and other than mentioned in HPI is essentially negative. PHYSICAL EXAMINATION GENERAL: He is a pleasant, upper middle-aged gentleman, in no acute distress or discomfort at the time of admission. VITAL SIGNS: Revealed a temperature of 98.3, pulse of 73, respirations of 22, O2 sat of 98% on room air, blood pressure of 151/78. HEENT: Head is normocephalic, atraumatic. There is a palpable small area on the right side of the parietal skull just off the midline that is not tender on palpation. I do not appreciate any pulsation in the area either. There are no skin changes or ulceration. Pupils are equal and EOMs intact. Tongue is midline. Oropharynx is pink and moist. NECK: Supple. Trachea midline. No cervical adenopathy or thyromegaly. LUNGS: Clear to auscultation bilaterally. HEART: Regular rate and rhythm. Normal S1 and S2 without rubs, murmurs or gallops. BACK: With normal curvature and no CVA tenderness. ABDOMEN: Soft, nontender and nondistended. No hernias, masses or hepatosplenomegaly. EXTREMITIES: Without cyanosis, clubbing or edema. NEUROLOGIC: Sensation is intact throughout. Left upper extremity with noticeable weakness with shoulder abduction or flexion. He is able to move his forearm slightly and able to supinate and pronate the left hand and move the fingers as well. Shoulder shrug with noticeable drop on the left side as well. The remainder of the motor exam was essentially within normal limits. RECTAL: Exam deferred at this time. DIAGNOSTIC STUDIES/LAB DATA: CBC with white count of 7600, hemoglobin of 8.0, hematocrit of 25, which appears to be baseline for the patient compared to CBC obtained back from October of this year, and platelets are 371. Chemistry panel with sodium of 138, potassium 4.7, chloride 111, CO2 of 18, BUN 76 and creatinine of 3.47. His glucose is 43 and LFTs within normal limits. Troponin 0.02. His EKG showed no ST changes and a chest x-ray was pending at the time of admission. His urine showed 3+ leukocyte esterase and 2+ protein as well as 1+ bacteria. It is to be noted that the patient has indwelling Burgess catheter for the past few years since his diagnosis of prostate cancer. IMPRESSION: A 72-year-old gentleman who has history of prostate cancer, for which he is currently on hormonal treatment as well as history of hypertension, hyperlipidemia, diabetes mellitus and chronic kidney disease, who presented to the emergency room with 2-day history of progressive weakness of his left upper extremity as well as finding of a mass on his parietal right hemisphere warranting more neurological workup. ASSESSMENT AND PLAN: 1. Brain mass. The patient will be admitted to telemetry unit for close observation and seizure precaution. He had received 1000 mg of Keppra IV per Dr. Morataya's recommendation in the ED and we will keep him on 750 mg p.o. b.i.d. from that point on. He appears to be stable at this time and he experienced absolutely no evidence of seizure activity. He will be seen by Dr. Infante later today who was contacted by Dr. Gordon from the ED staff for further recommendation regarding his care. I will keep him on his diet for now and we will await recommendation from Neurosurgery. 2. Insulin-dependent diabetes mellitus. We will continue his fingerstick blood glucose a.c. and q.h.s. with lispro sliding scale coverage and we will hold off his Humulin 14 units q.p.m. for the time being since he presented to the ED with hypoglycemia already. 3. Atrial fibrillation. He appears to be in sinus rhythm and rate controlled at this point. 4. History of deep venous thrombosis. The patient is currently being treated for deep venous thrombosis of the lower extremity. He initially had a dose of 100 mg b.i.d.; however, he saw Dr. Daniel recently, who switched him to 100 mg once daily and we will keep him on that dose for the time being. 5. Hypertension. We will continue home meds. 6. Hyperlipidemia. We will continue his statin. 7. Gastroesophageal reflux disease. We will continue his omeprazole. 8. Chronic kidney disease, stage 3. His creatinine was checked and appeared to be slightly higher than his baseline. We will reassess and recheck labs in the morning. 9. Chronic anemia. His hemoglobin and hematocrit appear to be at his baseline. We will continue his iron and evaluate CBC in the morning. 10. DVT prophylaxis: He is on therapeutic dose of Lovenox for DVT treatment. 11. Code status: He desires to be DNR and he had filled MOLST form and we will update the record. TIME SPENT: Approximately 60 minutes were spent admitting this patient, from which more than 50% taking history and performing physical exam. I have discussed the case with Dr. Tinoco, who agreed to plans of care. ELIZABETH URBINA ADDENDUM: The case was reviewed and discussed with Tania Lovett, physician learning support assistant. Mr. Montilla is a 72-year-old male with a complex medical history that includes prostate cancer, type 2 diabetes, hypertension, hyperlipidemia, CKD, obesity, AFib, DVT, who presents to the emergency room with complaints of left arm weakness. The patient had a right hip replacement in October 2017, but unfortunately he developed DVT a few weeks later and he has been on treatment with Lovenox since then, following with Dr. Daniel. He presented to the emergency room with a complaint of 2 days of progressive left upper extremity weakness and his workup in the emergency room included a CT of the brain that showed a 2.3 cm high attenuation mass along the right frontal lobe that appears to be extraaxial, but with involvement of the adjacent skull with extension to the soft tissues of the scalp and this is new when compared to his prior CT from June 2017. There is minimal vasogenic edema associated at the right frontal lobe. While this may represent an aggressive/invasive meningioma, dural-based metastatic disease is also within the differential. The plan is to have the patient admitted and he will be seen in consultation by Neurology and Neurosurgery. At this point, the patient received 8 mg of dexamethasone in the emergency room and we are going to wait for Neurosurgery evaluation to see if steroid therapy is going to be continued. The Lovenox will be continued for now to treat his DVT until Neurosurgery gives us a timeframe for his possible surgical procedure. The patient's lower extremity Doppler done in December 2017 showed the DVT involved the right posterior tibial vein without extension to the popliteal vein. The plan was discussed with physician learning support assistant. AGUILAR Tinoco MD [id number]/CPS #: [id number]/[id number] #: [id number]
--- NOTE | 2018-01-08 17:46 | CONS ---
CONSULTATION REPORT: DATE OF CONSULT: 01/08/18 PATIENT OF: Dr. Gordon and Dr. Stein. HISTORY OF PRESENT ILLNESS: This 72-year-old man I am asked to evaluate for left- sided weakness mostly in his arm since late Monday or early Monday morning and after speaking to his doctor's office, he was advised to come in. He has had no staring spells or seizures until today. He has had no headaches. He has had a lump on his right side of his scalp off midline for several months. His walking has been fine. There have been no visual problems. PAST MEDICAL HISTORY: Of note, he has a history of prostate cancer. He has insulin-dependent type 2 diabetes; hypertension; hyperlipidemia; chronic kidney disease, stage 3; B12 deficiency; chronic anemia; obesity; atrial fibrillation, on Coumadin; GERD. PAST SURGICAL HISTORY: He is status post lumbar laminectomy, cataract surgery, neck surgery with Dr. Guillaume, kidney stents. He has had vascular surgery and he has mostly recently in October had right hip arthroplasty. MEDICATIONS: Include: 1. Trazodone 50 mg at bedtime. 2. Tramadol 50 mg p.r.n. pain. 3. Glipizide 10 mg b.i.d. 4. Cartia XT 240 at bedtime. 5. Warfarin 4 mg alternating with 3 mg every other day. 6. Omeprazole 20 mg at bedtime. 7. Insulin 14 units subcu at bedtime. 8. Ferrous sulfate 325 daily. 9. Lovenox 100 mg subcu q.12 hours. 10. Hygroton 25 mg q.a.m. 11. Lipitor 40 mg at bedtime. 12. Ascorbic acid 500 mg daily. ALLERGIES: He is allergic to LISINOPRIL, INDAPAMIDE, ZESTORETIC. FAMILY HISTORY: Diabetes and cancer. SOCIAL HISTORY: He has a past history of tobacco abuse quitting 25 years ago. He does not drink or use drugs. He lives with his . REVIEW OF SYSTEMS: Performed and is negative in all 14 spheres other than his memory has been poor for the past few years' time and he is hard of hearing. PHYSICAL EXAM: On exam, temperature 98.3, pulse 73, respirations 20, blood pressure 165/80. He is alert and oriented x3. Cranial nerves II through XII were intact other than subtle left facial weakness. Visual dodson were intact to large objects and simultaneously presented. Discs were sharp. Motor exam revealed 4-/5 strength in the left arm. He cannot maintain his left arm lifted for any length of time and place. There was trace weakness in the left leg. Strength on the right was full. Toe on the left was equivocal, on the right was upgoing. He was sensitive to touch bilaterally without any extinction to double simultaneous stimulation. Chest: Clear. Cardiovascular: Regular rate and rhythm. Abdomen is soft with positive bowel sounds. Of note while I was in the exam, he had 20-second episode of rhythmic left hand shaking spreading to the arm and then into the neck with his head going to the left in a rhythmic way in association with the arm. He appeared awake throughout this. DIAGNOSTIC STUDIES/LAB DATA: Include normal white count, hematocrit of 25, platelets of 371. INR 0.98. Glucose was 43 and he has received glucose and his blood sugar is higher now. He has a BUN of 76, creatinine of 3.47, bicarb of 18. I reviewed his CT scan, which showed a dural-based mass high in his right frontoparietal region, which seems to be associated with the lesion on his scalp , which is a bump in his off vertex in his right frontal head region. On CT scan, there was some edema surrounding this hyperdense lesion with minimal mass effect. ASSESSMENT AND PLAN: I discussed with Landon and his and showed the the films that he appears to have most likely a brain tumor that may be extra- axial and may be meningioma or possible more likely prostate cancer since it may be associated with the lesion that appears external to his skull. This is most likely cause for his left-sided weakness and even though there were no staring spells or abnormal movements at home, he had an apparent seizure just now in front of me in the ER and we are loading him with Keppra for this. It would be reasonable to get an EEG as well. The specific treatment for this lesion will depend on the neurosurgeons and possibly the oncologist. It is possible that biopsy could be of the lesion that is superficial and external to the skull, but I defer to the surgeons as to optimal surgical treatment. I would hold the Coumadin until the surgeons see the patient. Please note that the patient had been hypoglycemic. Thank you for sharing his case. [id number]/[facility] #: [id number] [facility] SYSTEMNina
[2018-01-08] MEDS ORDERED: LORazepam INJ* 2 MG/ML 1 ML VIAL IV PUSH PRN (18:30)
[2018-01-08] MEDS ORDERED: Dextrose 50% Syringe 50 ML* 25 GM/50 ML SYRINGE IV PUSH PRN (18:32)
[2018-01-08] MEDS: Atorvastatin* 40 MG TAB PO SCH (21:10)
[2018-01-08] MEDS: Docusate CAP* 100 MG PO SCH (21:10)
[2018-01-08] MEDS: Insulin LISPRO* 1 UNITS UNIT SUBCUT SCH (21:10)
[2018-01-08] MEDS: Diltiazem CD CAP* 240 MG PO SCH (21:10)
[2018-01-08] MEDS: levETIRAcetam TAB* 500 MG PO SCH (21:12)
[2018-01-08] MEDS: traZODone TAB* 50 MG TAB PO SCH (21:12)
[2018-01-08] MEDS: Omeprazole CAP* 20 MG PO SCH (21:12)
--- NOTE | 2018-01-08 21:42 | HP ---
CC: Dr. Amando Stein; Dr. Morataya; Dr. Infante HISTORY AND PHYSICAL: ADDENDUM: The case was reviewed and discussed with Tania Lovett, physician commercial escrow assistant. Mr. Montilla is a 72-year-old male with a complex medical history that includes prostate cancer, type 2 diabetes, hypertension, hyperlipidemia, CKD, obesity, AFib, DVT, who presents to the emergency room with complaints of left arm weakness. The patient had a right hip replacement in October 2017, but unfortunately he developed DVT a few weeks later and he has been on treatment with Lovenox since then, following with Dr. Daniel. He presented to the emergency room with a complaint of 2 days of progressive left upper extremity weakness and his workup in the emergency room included a CT of the brain that showed a 2.3 cm high attenuation mass along the right frontal lobe that appears to be extraaxial, but with involvement of the adjacent skull with extension to the soft tissues of the scalp and this is new when compared to his prior CT from June 2017. There is minimal vasogenic edema associated at the right frontal lobe. While this may represent an aggressive/invasive meningioma, dural-based metastatic disease is also within the differential. The plan is to have the patient admitted and he will be seen in consultation by Neurology and Neurosurgery. At this point, the patient received 8 mg of dexamethasone in the emergency room and we are going to wait for Neurosurgery evaluation to see if steroid therapy is going to be continued. The Lovenox will be continued for now to treat his DVT until Neurosurgery gives us a timeframe for his possible surgical procedure. The patient's lower extremity Doppler done in December 2017 showed the DVT involved the right posterior tibial vein without extension to the popliteal vein. The plan was discussed with physician commercial escrow assistant. [id number]/[facility] #: [id number] NIKKI
[2018-01-09 06:56] LABS: ABS Basophils 0 10^3/ul (0-0.2); ABS Eosinophils 0 10^3/ul (0-0.6); ABS Lymphocytes 0.6 10^3/ul (1.0-4.8); ABS Monocytes 0.4 10^3/ul (0-0.8); ABS Neutrophils 5.5 10^3/ul (1.5-7.7); ABS Nucleated RBC 0 10^3/ul; Eosinophil % 0 % (0-6); Hematocrit 24 % (42-52); Hemoglobin 7.9 g/dl (14.0-18.0); Lymphocyte % 9.7 % (25-47); Mean Corpuscular HGB Conc 33 g/dl (31-36); Mean Corpuscular Hemoglobin 28 pg (27-31); Mean Corpuscular Volume 84 fL (80-94); Mean Platelet Volume 8.1 um3 (7.4-10.4); Nucleated Red Blood Cells % 0; Platelet Count 312 10^3/ul (150-450); Red Blood Count 2.87 10^6/ul (4.00-5.40); Red Cell Distribution Width 16 % (10.5-15); White Blood Count 6.6 10^3/ul (3.5-10.8)
[2018-01-09 07:13] LABS: EGFR Non-African American 17.3 (>60)
--- NOTE | 2018-01-09 09:05 | PN ---
Subjective - Subjective Reason for Note: Progress Note History: I reviewed his presentation with the patient, his Elizabeth, Tania Aura, ELIZABETH's H and P and Dr. Markie Morataya's consultation. He has had a rapid onset of left upper arm paralysis and loss of sensation. He also had a seizure witnessed by Dr. Morataya. There is an extraaxial mass that is eroding through his scalp. He denies any pain, headache, change in vision. His other comorbidities have been stable recently. 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 Diabetes mellitus with insulin therapy (Chronic) E11.9, Z79.4 - Hold oral DM meds - FSBG ACHS with Lispro SS - Lantus increased last night but sugar remains high, will increase to 20 units tonight History of osteomyelitis (Chronic) Z87.39 Hyperlipidemia (Chronic) E78.5 - statin Hypertension (Chronic) I10 - Continue Cardizem and Chlorthalidone Lumbar spinal stenosis (Chronic) M48.06 Nephrolithiasis (Chronic) N20.0 Paroxysmal atrial fibrillation (Chronic) I48.0 - Rate and rhythm regular - Continue cardizem and coumadin Restless legs (Chronic) S/P laminectomy (Chronic) Z98.890 Status post total hip replacement, right (Chronic) Z96.641 - POD2 - POC as per ortho service - Continue DVT prophy with coumadin bridge - Pain control, bowel regimen, OOB with PT/OT Type 2 diabetes mellitus (Chronic) Current Medications: Current Medications Acetaminophen (Tylenol Tab*) 650 mg PO Q4H PRN PRN Reason: FEVER/PAIN Al Hydrox/Mg Hydrox/Simethicone (Maalox Plus*) 30 ml PO Q6H PRN PRN Reason: INDIGESTION Albuterol (Ventolin 2.5 Mg/3 Ml Neb.Gertrude*) 2.5 mg INH [id number] AWAKE PRN PRN Reason: sob/wheezing Ascorbic Acid (Vitamin C Tab*) 500 mg PO DAILY [facility] Atorvastatin Calcium (Lipitor*) 40 mg PO BEDTIME [facility] Last Admin: 01/08/18 21:10 Dose: 40 mg Chlorthalidone (Hygroton Tab*) 25 mg PO QAM [facility] Dextrose (D50w Syringe 50 Ml*) 12.5 gm IV PUSH .FOR FS < 60 - SS PRN PRN Reason: FS < 60 Diltiazem HCl (Cardizem Cd Cap*) 240 mg PO BEDTIME [facility] Last Admin: 01/08/18 21:10 Dose: 240 mg Docusate Sodium (Colace Cap*) 100 mg PO BID [facility] Last Admin: 01/08/18 21:10 Dose: 100 mg Enoxaparin Sodium (Lovenox(*)) 100 mg SUBCUT Q24H [facility] Last Admin: 01/08/18 16:14 Dose: Not Given Ferrous Sulfate (Ferrous Sulfate Tab*) 325 mg PO DAILY [facility] Insulin Human Lispro (Humalog*) 0 units SUBCUT ACHS [facility]; Protocol Last Admin: 01/08/18 21:10 Dose: 10 unit Levetiracetam (Keppra Tab*) 750 mg PO BID [facility] Last Admin: 01/08/18 21:12 Dose: 750 mg Lorazepam (Ativan Inj*) 1 mg IV PUSH Q6H PRN PRN Reason: ANXIETY Magnesium Hydroxide (Milk Of Magnesia Liq*) 30 ml PO Q4H PRN PRN Reason: CONSTIPATION Morphine Sulfate (Morphine Vial*) 2 mg IV Q4H PRN PRN Reason: PAIN Omeprazole (Prilosec Cap*) 20 mg PO BEDTIME [facility] Last Admin: 01/08/18 21:12 Dose: 20 mg Ondansetron HCl (Zofran Inj*) 4 mg IV Q4H PRN PRN Reason: NAUSEA/VOMITING Oxycodone/Acetaminophen (Percocet 5/325 Tab*) 2 tab PO Q6H PRN PRN Reason: Pain Tramadol HCl (Ultram*) 50 mg PO Q6H PRN PRN Reason: PAIN Trazodone HCl (Desyrel Tab*) 50 mg PO BEDTIME [facility] Last Admin: 01/08/18 21:12 Dose: 50 mg Home Medications: Home Medications Medication Instructions Recorded Confirmed Type Ascorbic Acid TAB* [Vitamin C 500 mg PO DAILY 12/12/17 01/08/18 History TAB*] Atorvastatin* [Lipitor*] 40 mg PO BEDTIME 12/12/17 01/08/18 History Chlorthalidone TAB* [Hygroton TAB*] 25 mg PO QAM 12/12/17 01/08/18 History Enoxaparin(*) [Lovenox(*)] 100 mg SUBCUT Q12HR #16 syringe 12/12/17 01/08/18 Rx Ferrous Sulfate TAB* 325 mg PO DAILY 12/12/17 01/08/18 History Insulin NPH Human Isophane 14 unit SUBCUT BEDTIME 12/12/17 01/08/18 History [Humulin N Kwikpen] Multivit-Mins/Iron/Folic/Lycop 1 tab PO DAILY 12/12/17 01/08/18 History [Centrum Ultra Mens] Omeprazole CAP* [Prilosec CAP* 20 20 mg PO BEDTIME 12/12/17 01/08/18 History MG] Warfarin TAB(*) [Coumadin TAB(*)] 3 mg PO EVERY OTHER DAY 12/12/17 01/08/18 History Warfarin TAB(*) [Coumadin TAB(*)] 4 mg PO EVERY OTHER DAY 12/12/17 01/08/18 History dilTIAZem HCl [Cartia Xt] 240 mg PO BEDTIME 12/12/17 01/08/18 History glipiZIDE TAB* [Glucotrol TAB*] 10 mg PO BID 12/12/17 01/08/18 History traMADol TAB* [Ultram*] 50 mg PO Q4H PRN MDD 6 tablets 12/12/17 01/08/18 History traZODone TAB* [Desyrel TAB*] 50 mg PO BEDTIME 12/12/17 01/08/18 History Allergies: Allergies Allergy/AdvReac Type Severity Reaction Status Date / Time codeine Allergy tongue Verified 01/08/18 10:55 swells hydrochlorothiazide Allergy increased Verified 01/08/18 10:55 [From Zestoretic] bun/ cr indapamide Allergy hypotension Verified 01/08/18 10:55 lisinopril Allergy Rash Verified 01/08/18 10:55 Objective - Vital Signs Vital Signs: Vital Signs 01/08/18 01/08/18 01/08/18 10:53 11:15 11:19 Temperature 98.3 F Pulse Rate 78 79 76 Respiratory 18 15 16 Rate Blood Pressure 140/56 163/81 (mmHg) O2 Sat by Pulse 98 96 97 Oximetry 01/08/18 01/08/18 01/08/18 11:49 12:00 12:20 Temperature Pulse Rate 72 75 73 Respiratory 17 21 17 Rate Blood Pressure 160/85 173/108 (mmHg) O2 Sat by Pulse 97 97 99 Oximetry 01/08/18 01/08/18 01/08/18 12:50 13:00 13:19 Temperature Pulse Rate 75 73 72 Respiratory 18 20 16 Rate Blood Pressure 165/80 167/81 (mmHg) O2 Sat by Pulse 98 99 98 Oximetry 01/08/18 01/08/18 01/08/18 13:49 14:00 14:19 Temperature Pulse Rate 72 73 73 Respiratory 16 22 16 Rate Blood Pressure 151/78 159/83 (mmHg) O2 Sat by Pulse 98 98 99 Oximetry 01/08/18 01/08/18 01/08/18 14:49 15:00 15:19 Temperature Pulse Rate 69 72 71 Respiratory 15 17 17 Rate Blood Pressure 152/87 155/78 (mmHg) O2 Sat by Pulse 96 98 97 Oximetry 01/08/18 01/08/18 01/08/18 15:40 15:44 16:22 Temperature 97.8 F 98.1 F Pulse Rate 82 90 71 Respiratory 16 18 Rate Blood Pressure 152/87 119/80 157/72 (mmHg) O2 Sat by Pulse 98 96 99 Oximetry 01/08/18 01/08/18 01/09/18 20:00 20:14 00:05 Temperature 99.0 F 98.3 F Pulse Rate 66 73 Respiratory 16 16 18 Rate Blood Pressure 139/44 137/63 (mmHg) O2 Sat by Pulse 97 99 Oximetry 01/09/18 01/09/18 01/09/18 03:54 07:30 07:41 Temperature 97.8 F 97.7 F Pulse Rate 64 63 Respiratory 18 16 16 Rate Blood Pressure 127/35 131/55 (mmHg) O2 Sat by Pulse 99 100 Oximetry - Intake and Output Intake and Output: Intake & Output 01/06/18 01/07/18 01/08/18 01/09/18 11:59 11:59 11:59 11:59 Intake Total 230 Output Total 2575 Balance -2345 Weight 210 lb 214 lb Intake: IV Fluids 110 Oral 120 Output: Urine 200 Burgess 2375 Other: # Bowel Movements 0 ADLs: Meal Record Start: 01/08/18 16: 04 Freq: DAILY@0900,1400,1800 Status: Active Protocol: Created 01/08/18 16:04 System (Rec: 01/08/18 16:04 System [email or web address]) Document 01/08/18 18:00 [id number] (Rec: 01/08/18 21:37 [id number]) Intake and Output Start: 01/08/18 10: 55 Freq: Status: Active Protocol: Created 01/08/18 10:55 System (Rec: 01/08/18 10:55 System [id number]) Intake and Output Start: 01/08/18 16: 04 Freq: DAILY@0600,1400,2200 Status: Active Protocol: Created 01/08/18 16:04 System (Rec: 01/08/18 16:04 System [email or web address]) Document 01/08/18 22:00 [id number] (Rec: 01/08/18 23:33 [id number]) Document 01/09/18 00:46 [id number] (Rec: 01/09/18 00:46 [id number] [email or web address]) Document 01/09/18 06:00 [id number] (Rec: 01/09/18 06:28 [id number]) - Physical Exam General Physical Exam Comment: He is sitting in a chair. He is warm and well perfused and in no acute distress. He is alert and oriented and aware of his situation. He is coooperative. General: No Cyanosis, Yes Anemia, No Jaundice, No Clubbing Lungs and Chest: Yes: Chest Expansion Full, Chest Expansion Symetrica, Percussion Note Resonant, Vessicular Breath Sounds. No: Crackles, Wheezes Heart Rate and Rhythm: Regular JVP: Not Elevated Additional Cardiovascular: Yes: Normal Heart Sounds. No: Heart Murmur, Pedal Edema Abdominal Exam: Yes: Soft, Abdominal Tenderness. No: Distention, Abdominal Mass , Hepatomegaly, Bowel Sounds Present - Extremities Cranial Nerves II-XII Intact: Yes Limbs: Normal Tone, Abnormal Power - Left arm completely paralysed and limp - Neuro Orientation: A/O x3 Psychiatric: Normal Speech: Normal Results - Results Lab Results: Laboratory Results - last 24 hr 01/08/18 01/08/18 01/08/18 11:28 11:28 11:28 WBC 7.6 RBC 2.97 L Hgb 8.0 L Hct 25 L MCV 84 MCH 27 MCHC 32 RDW 16 H Plt Count 371 MPV 8.2 Neut % (Auto) 72.3 Lymph % (Auto) 17.2 L [place] % (Auto) 8.2 H Eos % (Auto) 1.7 Baso % (Auto) 0.6 Absolute Neuts (auto) 5.5 Absolute Lymphs (auto) 1.3 Absolute Monos (auto) 0.6 Absolute Eos (auto) 0.1 Absolute Basos (auto) 0 Absolute Nucleated RBC 0 Nucleated RBC % 0 INR (Anticoag Therapy) 0.98 Sodium 138 Potassium 4.7 Chloride 111 Carbon Dioxide 18 L Anion Gap 9 BUN 76 H Creatinine 3.47 H Est GFR ( Amer) 21.1 Est GFR (Non-Af Amer) 17.4 BUN/Creatinine Ratio 21.9 H Glucose 43 L* POC Glucose (mg/dL) POC Glucose Confirm Calcium 8.8 Total Bilirubin 0.20 AST 14 ALT 12 Alkaline Phosphatase 92 Troponin I 0.02 Total Protein 7.6 Albumin 3.7 Globulin 3.9 Albumin/Globulin Ratio 0.9 L Urine Color Urine Appearance Urine pH Ur Specific [place] Urine Protein Urine Ketones Urine Blood Urine Nitrate Urine Bilirubin Urine Urobilinogen Ur Leukocyte Esterase Urine WBC (Auto) Urine RBC (Auto) Urine Bacteria Urine Glucose 01/08/18 01/08/18 01/08/18 12:44 13:46 20:23 WBC RBC Hgb Hct MCV MCH MCHC RDW Plt Count MPV Neut % (Auto) Lymph % (Auto) [place] % (Auto) Eos % (Auto) Baso % (Auto) Absolute Neuts (auto) Absolute Lymphs (auto) Absolute Monos (auto) Absolute Eos (auto) Absolute Basos (auto) Absolute Nucleated RBC Nucleated RBC % INR (Anticoag Therapy) Sodium Potassium Chloride Carbon Dioxide Anion Gap BUN Creatinine Est GFR ( Amer) Est GFR (Non-Af Amer) BUN/Creatinine Ratio Glucose POC Glucose (mg/dL) 93 401 H* POC Glucose Confirm Calcium Total Bilirubin AST ALT Alkaline Phosphatase Troponin I Total Protein Albumin Globulin Albumin/Globulin Ratio Urine Color Yellow Urine Appearance Cloudy Urine pH 7.0 Ur Specific [place] 1.010 Urine Protein 2+(100 mg/dl) A Urine Ketones Negative Urine Blood 2+ A Urine Nitrate Negative Urine Bilirubin Negative Urine Urobilinogen Negative Ur Leukocyte Esterase 3+ A Urine WBC (Auto) 3+(>20/hpf) A Urine RBC (Auto) 3+(>10/hpf) A Urine Bacteria 1+ A Urine Glucose Negative 01/08/18 01/09/18 01/09/18 20:34 06:31 06:31 WBC 6.6 RBC 2.87 L Hgb 7.9 L Hct 24 L MCV 84 MCH 28 MCHC 33 RDW 16 H Plt Count 312 MPV 8.1 Neut % (Auto) 83.5 H Lymph % (Auto) 9.7 L [place] % (Auto) 6.7 Eos % (Auto) 0 Baso % (Auto) 0.1 Absolute Neuts (auto) 5.5 Absolute Lymphs (auto) 0.6 L Absolute Monos (auto) 0.4 Absolute Eos (auto) 0 Absolute Basos (auto) 0 Absolute Nucleated RBC 0 Nucleated RBC % 0 INR (Anticoag Therapy) Sodium 136 Potassium 5.5 H Chloride 110 Carbon Dioxide 17 L Anion Gap 9 BUN 78 H Creatinine 3.49 H Est GFR ( Amer) 20.9 Est GFR (Non-Af Amer) 17.3 BUN/Creatinine Ratio 22.3 H Glucose 245 H POC Glucose (mg/dL) POC Glucose Confirm 374 H Calcium 8.8 Total Bilirubin AST ALT Alkaline Phosphatase Troponin I Total Protein Albumin Globulin Albumin/Globulin Ratio Urine Color Urine Appearance Urine pH Ur Specific [place] Urine Protein Urine Ketones Urine Blood Urine Nitrate Urine Bilirubin Urine Urobilinogen Ur Leukocyte Esterase Urine WBC (Auto) Urine RBC (Auto) Urine Bacteria Urine Glucose 01/09/18 07:20 WBC RBC Hgb Hct MCV MCH MCHC RDW Plt Count MPV Neut % (Auto) Lymph % (Auto) [place] % (Auto) Eos % (Auto) Baso % (Auto) Absolute Neuts (auto) Absolute Lymphs (auto) Absolute Monos (auto) Absolute Eos (auto) Absolute Basos (auto) Absolute Nucleated RBC Nucleated RBC % INR (Anticoag Therapy) Sodium Potassium Chloride Carbon Dioxide Anion Gap BUN Creatinine Est GFR ( Amer) Est GFR (Non-Af Amer) BUN/Creatinine Ratio Glucose POC Glucose (mg/dL) 134 H POC Glucose Confirm Calcium Total Bilirubin AST ALT Alkaline Phosphatase Troponin I Total Protein Albumin Globulin Albumin/Globulin Ratio Urine Color Urine Appearance Urine pH Ur Specific [place] Urine Protein Urine Ketones Urine Blood Urine Nitrate Urine Bilirubin Urine Urobilinogen Ur Leukocyte Esterase Urine WBC (Auto) Urine RBC (Auto) Urine Bacteria Urine Glucose Radiology Results: Patient Name: MARKIE LANDRY Medical Record#: [id number] Ordering Physician: Vamsi Gordon MD Acct.#: [id number] : 1945 Age: 72 Sex: M Location: EMERGENCY DEPARTMENT Exam Date: 01/08/18 1120 ADM Status: REG ER Order Information: CT BRAIN WO Accession Number: [id number] CPT: 48531 HISTORY: LUE paresis, isolated COMPARISONS: June 14, 2017 TECHNIQUE: Multiple contiguous axial CT scans were obtained of the head without intravenous contrast. Coronal and sagittal multiplanar reformations are also submitted for review. FINDINGS: HEMORRHAGE/INFARCT: There is no hemorrhage or acute infarct. MASSES/SHIFT: There has been interval development of a high attenuation mass along the right superior frontal gyrus posteriorly. This is likely extra-axial. This measures approximately 1.6 x 1.9 x 2.3 cm in size. There is involvement of the adjacent skull with extension to the scalp. There is associated vasogenic edema of the right frontal lobe. There is no shift. EXTRA-AXIAL SPACES: As noted above, there is a 2.3 cm extra axial mass of the right superior frontal gyrus with mass effect upon the adjacent cortex and vasogenic edema. There is extension into the skull and scalp. SULCI AND VENTRICLES: The sulci and ventricles are normal in size and position for the patient's stated age. CEREBRUM: As noted above, there is a right frontal extra axial mass with vasogenic edema the superior frontal gyrus. BRAINSTEM: There are no focal parenchymal abnormalities. CEREBELLUM: There are no focal parenchymal abnormalities. VESSELS: The vessels are grossly normal. PARANASAL SINUSES: The paranasal sinuses are clear. ORBITS: The orbits are unremarkable. BONES AND SOFT TISSUE: Hyperostosis with extension of a extra axial mass into the right frontal skull and scalp. OTHER: None IMPRESSION: 1. THERE IS A 2.3 CM HIGH ATTENUATION MASS ALONG THE RIGHT FRONTAL LOBE. THIS APPEARS TO BE EXTRA-AXIAL. THERE IS INVOLVEMENT OF THE ADJACENT SKULL WITH EXTENSION TO THE SOFT TISSUES OF THE SCALP. THIS IS NEW WHEN COMPARED TO JUNE 14, 2017. 2. THERE IS NO SHIFT. 3. THERE IS MINIMAL ASSOCIATED VASOGENIC EDEMA ADJACENT RIGHT FRONTAL LOBE. 4. WHILE THIS MAY REPRESENT AN AGGRESSIVE/INVASIVE MENINGIOMA, DURAL BASED METASTATIC DISEASE IS ALSO WITHIN THE DIFFERENTIAL IS AN OSSEOUS METASTASIS WITH DURAL AND SOFT TISSUE EXTENSION, GIVEN THE HISTORY OF PROSTATE CANCER. <Electronically signed by Jamir Tee MD in OV> 01/08/18 1158 Dictated By: Jamir Tee MD Dictated Date/Time: 01/08/18 115 Transcribed Date/Time: 01/08/18 1148 Patient Name: MARKIE LANDRY Medical Record#: [id number] Ordering Physician: Tania JOHNSON Acct.#: [id number] : 1945 Age: 72 Sex: M Location: EMERGENCY DEPARTMENT Exam Date: 01/08/18 1433 ADM Status: REG ER Order Information: CHEST AP PORTABLE Accession Number: [id number] CPT: 12080 INDICATION: Weakness. COMPARISON: Comparison is made with a prior study from November 01, 2017. TECHNIQUE: A portable view of the chest was obtained. FINDINGS: Cardiac and mediastinal contours appear to be within normal limits. The lungs are underinflated and grossly clear. No pleural effusion is seen. IMPRESSION: NO EVIDENCE FOR ACUTE DISEASE. <Electronically signed by Prem Marvin MD in OV> 01/08/18 1537 Dictated By: Prem Marvin MD Dictated Date/Time: 01/08/18 1537 Transcribed Date/Time: 01/08/18 1536 Copy to: CC:Amando Stein MD; Tania JOHNSON; Markie Morataya MD; Mandi Ruiz MD; Kd Infante MD; Vamsi Gordon MD Imaging - [facility] Imaging - [facility] Imaging - [facility] [address] [place] [id number] [place] [id number] [place] [id number] ph [phone]) ph ([phone]) ph ([phone]) 1 of 2 EKG Report: 75 sinus rhythm MA 167 QTc 435 QRS axis -51 Left anterior hemiblock. Assessment - Problem List Assessment: Patient Problems Anemia (Acute) Complex partial seizure (Acute) 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 (Acute) Stage 4 chronic kidney disease (Acute) Afib (Chronic) Anticoagulation goal of INR 2 to 3 (Chronic) Chronic indwelling Burgess catheter (Chronic) DVT prophylaxis (Chronic) Diabetes mellitus with insulin therapy (Chronic) History of osteomyelitis (Chronic) Hyperlipidemia (Chronic) Hypertension (Chronic) Lumbar spinal stenosis (Chronic) Nephrolithiasis (Chronic) Paroxysmal atrial fibrillation (Chronic) Restless legs (Chronic) S/P laminectomy (Chronic) Status post total hip replacement, right (Chronic) Type 2 diabetes mellitus (Chronic) Plan: Complex partial seizure (Acute)Extra-axial brain tumor (Acute)Paralysis of left upper extremity (Acute) He has new onset of left arm paralysis. This correlates with an extraaxial mass that involves the right frontal lobe and is eroding through the skull. This is new since a study on 06/14/2017. Although it could be a meningioma, but I suspect it is most likely to be a metastasis. We can biopsy it. However, I think we should also check a PSA and NM bone scan to see if there are other lesions. Dr. Morataya has started him on keppra for complex partial seizure. I will defer to neurosurgery whether he needs dexamethasone Anemia (Acute) This is chronic and secondary to renal disease Stage 4 chronic kidney disease (Acute) This is progressing Afib (Chronic) AT present in sinus rhythm Anticoagulation goal of INR 2 to 3 (Chronic) He is not anticoagulated at present and could have a biopsy Chronic indwelling Burgess catheter (Chronic) ongoing DVT prophylaxis (Chronic) Diabetes mellitus with insulin therapy (Chronic) This has reasonable control History of osteomyelitis (Chronic) This is resolved Hyperlipidemia (Chronic) stable Hypertension (Chronic) not exacerbation Lumbar spinal stenosis (Chronic) secondary Nephrolithiasis (Chronic) inactive Paroxysmal atrial fibrillation (Chronic) sinus rhythm Restless legs (Chronic) secondary diagnosis S/P laminectomy (Chronic) Status post total hip replacement, right (Chronic) I discussed with the patient and his family the nature of the problem. I introduced that it may be a primary, but is most likely a secondary.
[2018-01-09] MEDS: Insulin LISPRO* 1 UNITS UNIT SUBCUT SCH ×4 (09:11→21:49)
[2018-01-09] MEDS: levETIRAcetam TAB* 500 MG PO SCH ×2 (09:12→20:54)
[2018-01-09] MEDS: Ferrous Sulfate TAB* 325 MG PO SCH (09:12)
[2018-01-09] MEDS: Docusate CAP* 100 MG PO SCH ×2 (09:12→20:54)
[2018-01-09] MEDS: Ascorbic Acid TAB* 500 MG PO SCH (09:12)
[2018-01-09] MEDS: Chlorthalidone TAB* 50 MG PO SCH (09:13)
--- NOTE | 2018-01-09 09:41 | PN ---
Progress Note - Progress Note Date of Service: 01/09/18 SOAP: Subjective: [] Asked to see patient with right scalp and brain mass. Mass has been present in scalp for at least 4-8 weeks but has gotten much larger lately. Presented to ER yest with LUE weakness. No c/o headache,some focal seizure activity in ER. CT shows mass in right parietal area with surrounding edema. Bone does not appear to be involved Objective: []Awake, alert,oriented Dense LUE hemiparesis CN 2-12 intact Assessment: []Prob metastatic disease Plan: []MRI of brain without and with contrast Will need CT of C/A P for workup Recommend needle biopsy of scalp lesion by for tissue diagnosis Full C/S to follow
--- NOTE | 2018-01-09 11:55 | RAD ---
HISTORY: Brain mass COMPARISONS: January 08, 2018 CT of the head TECHNIQUE: The following sequences were obtained of the head: Sagittal T1-weighted images, axial T2-weighted images, coronal T2-weighted images, axial FLAIR images, axial susceptibility weighted images, axial T1-weighted images. Additionally, axial diffusion-weighted images were obtained with calculated apparent diffusion coefficients. FINDINGS: HEMORRHAGE/INFARCT: There is no hemorrhage or acute infarct. MASSES/SHIFT: Again noted is an extra-axial mass centered along the right posterior frontal lobe at the level of the superior frontal gyrus and precentral gyrus. This measures approximately 1.9 x 2.5 x 2.5 cm in size. There is mass effect upon the adjacent cortex. There is abnormal signal within the overlying calvarium, extending for approximately 6.4 cm, with dural thickening. There is also extension into the subcutaneous tissues of the scalp. There is no shift. EXTRA-AXIAL SPACES/MENINGES: As described above, there is an extra-axial mass with dural thickening along the right posterior frontal lobe. SULCI AND VENTRICLES: The sulci and ventricles are normal in size and position for the patient's stated age. CEREBRUM: As described above, there is an extra-axial mass along the right posterior frontal lobe. There is associated vasogenic edema deep to the mass. BRAINSTEM: There are no focal parenchymal abnormalities. CEREBELLUM: There are no focal parenchymal abnormalities. The cerebellar tonsils are normal in size and position. SELLA: The sella is normal. PINEAL: The pineal region is clear. CP ANGLE/TEMPORAL BONES: The labyrinthine structures are grossly normal. VESSELS: Normal flow-voids are noted within the visualized vertebral vasculature. DIFFUSION ABNORMALITIES: The extra-axial mass along the right frontal lobe demonstrates restricted diffusion. PARANASAL SINUSES/MASTOIDS: The paranasal sinuses are clear. ORBITS: The orbits are unremarkable. BONES AND SOFT TISSUE: As noted above, there is abnormal signal within the skull superficial to the extra-axial mass consistent with osseous involvement. This measures approximately 6.4 x 3.8 cm transversely. There is extension into the subcutaneous soft tissues of the scalp. OTHER: None IMPRESSION: 1. AGAIN NOTED IS AN EXTRA-AXIAL MASS ALONG THE RIGHT POSTERIOR FRONTAL LOBE MEASURING APPROXIMATELY 2.5 CM IN MAXIMUM DIMENSION. THERE IS MASS EFFECT ON THE ADJACENT CORTEX WITH VASOGENIC EDEMA. THERE IS DURAL THICKENING WITH EXTENSION INTO THE OVERLYING BONE AND INTO THE SUBCUTANEOUS SOFT TISSUES OF THE SCALP. 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 THE DIFFERENTIAL INCLUDES INVASIVE/AGGRESSIVE MENINGIOMA, OR DURAL BASED METASTATIC DISEASE WITH EXTENSION TO THE OVERLYING BONE. PRIMARY OR OSSEOUS METASTATIC DISEASE IS ALSO WITHIN THE DIFFERENTIAL BUT IS CONSIDERED SOMEWHAT LESS LIKELY GIVEN THE IMAGING APPEARANCE
--- NOTE | 2018-01-09 13:25 | RAD ---
INDICATION: Prostate carcinoma. Skull lesion on recent CT COMPARISON: CT brain January 08, 2018; MRI brain January 09, 2018; CT abdomen and pelvis November 18, 2016 TECHNIQUE: Following the intravenous administration of 20.4 millicuries of technetium 99m HDP, a total body bone scan was performed. FINDINGS: There is intense activity involving the frontal bone near the vertex corresponding to known bony lesions identified on recent CT and MR imaging. There are no other abnormal areas of increased isotopic activity. There are no other scintigraphic evidence of osseous metastatic disease. There is asymmetric activity in the right kidney consistent with hydronephrosis. The left kidney is relatively photopenic. This is consistent with earlier CT findings showing right renal stenting with hydronephrosis and an atrophic left kidney. IMPRESSION: THE KNOWN CALVARIAL LESION SHOWS RAPID BONY TURNOVER. THERE ARE NO ADDITIONAL SCINTIGRAPHIC ABNORMALITIES OF BONE. CPT II Codes: 3570F PQRS (Nuc med compare/no prior)
[2018-01-09] MEDS: Diltiazem CD CAP* 240 MG PO SCH (20:54)
[2018-01-09] MEDS: Atorvastatin* 40 MG TAB PO SCH (20:54)
[2018-01-09] MEDS: Omeprazole CAP* 20 MG PO SCH (20:54)
[2018-01-09] MEDS: traZODone TAB* 50 MG TAB PO SCH (20:54)
[2018-01-09] MEDS: Melatonin 3 MG TAB PO PRN (23:11)
--- NOTE | 2018-01-10 04:37 | EEG ---
ELECTROENCEPHALOGRAPHY: DATE OF SERVICE: - ROOM #440 DATE OF DICTATION: 01/09/18 PATIENT OF: ELIZABETH Camargo HISTORY: This is a 72-year-old man being evaluated for new onset of seizures in association with presenting with left arm weakness and a brain mass. The seizure was a left focal seizure lasting 20 to 30 seconds. MEDICATIONS: Include: 1. Atorvastatin. 2. Enoxaparin. 3. Keppra. 4. Aldosterone. 5. Morphine. 6. Ventolin. 7. Maalox. 8. Chlorthalidone. 9. Omeprazole. 10. Docusate. 11. Diltiazem. 12. Dexamethasone. 13. Ultram. INTERPRETATION: With the patient awake, background cerebral activity consists of moderate amplitude posterior dominant of 8 to 9 Hz rhythm, which attenuates with eye opening and reappears with eye closure. Neither hyperventilation nor photic stimulation were performed. With the patient asleep, background consisted of diffuse irregular delta and theta activity. Normal patterns of sleep including vertex waves were noted. No epileptiform potentials, focal abnormalities, or major asymmetries of background are present. IMPRESSION: This awake and asleep EEG is within normal limits. [id number]/[facility] #: [id number] NIKKI
[2018-01-10 06:59] LABS: ABS Basophils 0.1 10^3/ul (0-0.2); ABS Eosinophils 0.2 10^3/ul (0-0.6); ABS Lymphocytes 0.8 10^3/ul (1.0-4.8); ABS Monocytes 0.6 10^3/ul (0-0.8); ABS Nucleated RBC 0 10^3/ul; Eosinophil % 2.7 % (0-6); Hematocrit 25 % (42-52); Hemoglobin 8.2 g/dl (14.0-18.0); Lymphocyte % 12.7 % (25-47); Mean Corpuscular HGB Conc 33 g/dl (31-36); Mean Corpuscular Hemoglobin 28 pg (27-31); Mean Corpuscular Volume 84 fL (80-94); Mean Platelet Volume 8.2 um3 (7.4-10.4); Nucleated Red Blood Cells % 0; Platelet Count 370 10^3/ul (150-450); Red Blood Count 2.94 10^6/ul (4.00-5.40); Red Cell Distribution Width 16 % (10.5-15); White Blood Count 6.6 10^3/ul (3.5-10.8)
--- NOTE | 2018-01-10 07:47 | PN ---
Subjective - Subjective Reason for Note: Progress Note History: He has more use of his left hand today, but can't raise his left arm. Otherwise , he is in no pain or distress and has no new symptoms. He denies headache, change in vision, problems with walking or balancing. 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 Diabetes mellitus with insulin therapy (Chronic) E11.9, Z79.4 - Hold oral DM meds - FSBG ACHS with Lispro SS - Lantus increased last night but sugar remains high, will increase to 20 units tonight History of osteomyelitis (Chronic) Z87.39 Hyperlipidemia (Chronic) E78.5 - statin Hypertension (Chronic) I10 - Continue Cardizem and Chlorthalidone Lumbar spinal stenosis (Chronic) M48.06 Nephrolithiasis (Chronic) N20.0 Paroxysmal atrial fibrillation (Chronic) I48.0 - Rate and rhythm regular - Continue cardizem and coumadin Restless legs (Chronic) S/P laminectomy (Chronic) Z98.890 Status post total hip replacement, right (Chronic) Z96.641 - POD2 - POC as per ortho service - Continue DVT prophy with coumadin bridge - Pain control, bowel regimen, OOB with PT/OT Type 2 diabetes mellitus (Chronic) Current Medications: Current Medications Acetaminophen (Tylenol Tab*) 650 mg PO Q4H PRN PRN Reason: FEVER/PAIN Al Hydrox/Mg Hydrox/Simethicone (Maalox Plus*) 30 ml PO Q6H PRN PRN Reason: INDIGESTION Albuterol (Ventolin 2.5 Mg/3 Ml Neb.Gertrude*) 2.5 mg INH RT.C1NU-BWVMS AWAKE PRN PRN Reason: sob/wheezing Ascorbic Acid (Vitamin C Tab*) 500 mg PO DAILY [facility] Last Admin: 01/09/18 09:12 Dose: 500 mg Atorvastatin Calcium (Lipitor*) 40 mg PO BEDTIME [facility] Last Admin: 01/09/18 20:54 Dose: 40 mg Chlorthalidone (Hygroton Tab*) 25 mg PO QAM [facility] Last Admin: 01/09/18 09:13 Dose: 25 mg Dextrose (D50w Syringe 50 Ml*) 12.5 gm IV PUSH .FOR FS < 60 - SS PRN PRN Reason: FS < 60 Diltiazem HCl (Cardizem Cd Cap*) 240 mg PO BEDTIME [facility] Last Admin: 01/09/18 20:54 Dose: 240 mg Docusate Sodium (Colace Cap*) 100 mg PO BID [facility] Last Admin: 01/09/18 20:54 Dose: 100 mg Ferrous Sulfate (Ferrous Sulfate Tab*) 325 mg PO DAILY [facility] Last Admin: 01/09/18 09:12 Dose: 325 mg Insulin Human Lispro (Humalog*) 0 units [facility]; Protocol Last Admin: 01/09/18 21:49 Dose: 2 unit Levetiracetam (Keppra Tab*) 750 mg PO BID [facility] Last Admin: 01/09/18 20:54 Dose: 750 mg Lorazepam (Ativan Inj*) 1 mg IV PUSH Q6H PRN PRN Reason: ANXIETY Magnesium Hydroxide (Milk Of Magnesia Liq*) 30 ml PO Q4H PRN PRN Reason: CONSTIPATION Melatonin (Melatonin) 3 mg PO BEDTIME PRN; Protocol PRN Reason: Sleep Last Admin: 01/09/18 23:11 Dose: 3 mg Morphine Sulfate (Morphine Vial*) 2 mg IV Q4H PRN PRN Reason: PAIN Omeprazole (Prilosec Cap*) 20 mg PO BEDTIME [facility] Last Admin: 01/09/18 20:54 Dose: 20 mg Ondansetron HCl (Zofran Inj*) 4 mg IV Q4H PRN PRN Reason: NAUSEA/VOMITING Oxycodone/Acetaminophen (Percocet 5/325 Tab*) 2 tab PO Q6H PRN PRN Reason: Pain Tramadol HCl (Ultram*) 50 mg PO Q6H PRN PRN Reason: PAIN Trazodone HCl (Desyrel Tab*) 50 mg PO BEDTIME [facility] Last Admin: 01/09/18 20:54 Dose: 50 mg - Review of Systems Pulmonary: Negative: Cough, Sputum Cardiology: Negative: Chest Pain, Shortness of Breath, Palpitations, Swelling of Ankles Gastroenterology: Positive: Constipation Negative: Abdominal Pain, Nausea, Vomiting Neurology: Positive: Hx of Seizures - no further episodes Negative: Headache, Change in Vision, Diplopia, Change in Speech, Change in Sphincter Function Home Medications: Home Medications Medication Instructions Recorded Confirmed Type Ascorbic Acid TAB* [Vitamin C 500 mg PO DAILY 12/12/17 01/08/18 History TAB*] Atorvastatin* [Lipitor*] 40 mg PO BEDTIME 12/12/17 01/08/18 History Chlorthalidone TAB* [Hygroton TAB*] 25 mg PO QAM 12/12/17 01/08/18 History Enoxaparin(*) [Lovenox(*)] 100 mg SUBCUT Q12HR #16 syringe 12/12/17 01/08/18 Rx Ferrous Sulfate TAB* 325 mg PO DAILY 12/12/17 01/08/18 History Insulin NPH Human Isophane 14 unit SUBCUT BEDTIME 12/12/17 01/08/18 History [Humulin N Aricpen] Multivit-Mins/Iron/Folic/Lycop 1 tab PO DAILY 12/12/17 01/08/18 History [Centrum Ultra Mens] Omeprazole CAP* [Prilosec CAP* 20 20 mg PO BEDTIME 12/12/17 01/08/18 History MG] Warfarin TAB(*) [Coumadin TAB(*)] 3 mg PO EVERY OTHER DAY 12/12/17 01/08/18 History Warfarin TAB(*) [Coumadin TAB(*)] 4 mg PO EVERY OTHER DAY 12/12/17 01/08/18 History dilTIAZem HCl [Cartia Xt] 240 mg PO BEDTIME 12/12/17 01/08/18 History glipiZIDE TAB* [Glucotrol TAB*] 10 mg PO BID 12/12/17 01/08/18 History traMADol TAB* [Ultram*] 50 mg PO Q4H PRN MDD 6 tablets 12/12/17 01/08/18 History traZODone TAB* [Desyrel TAB*] 50 mg PO BEDTIME 12/12/17 01/08/18 History Allergies: Allergies Allergy/AdvReac Type Severity Reaction Status Date / Time codeine Allergy tongue Verified 01/08/18 10:55 swells hydrochlorothiazide Allergy increased Verified 01/08/18 10:55 [From Zestoretic] bun/ cr indapamide Allergy hypotension Verified 01/08/18 10:55 lisinopril Allergy Rash Verified 01/08/18 10:55 Objective - Vital Signs Vital Signs: Vital Signs 01/09/18 01/09/18 01/09/18 15:22 19:12 20:00 Temperature 97.3 F 98.3 F Pulse Rate 70 67 Respiratory 16 16 16 Rate Blood Pressure 134/67 139/63 (mmHg) O2 Sat by Pulse 100 98 Oximetry 01/09/18 01/10/18 01/10/18 23:36 03:28 07:34 Temperature 97.9 F 97.4 F 97.7 F Pulse Rate 63 67 66 Respiratory 16 16 16 Rate Blood Pressure 136/54 144/65 136/59 (mmHg) O2 Sat by Pulse 99 98 99 Oximetry - Intake and Output Intake and Output: Intake & Output 01/07/18 01/08/18 01/09/18 01/10/18 11:59 11:59 11:59 11:59 Intake Total 830 2180 Output Total 2575 3275 Balance -1745 -1095 Weight 210 lb 214 lb Intake: IV Fluids 110 Oral 720 2180 Output: Urine 200 925 Jarrell 2375 2350 Other: Estimated Void Medium # Bowel Movements 0 0 Estimated Stool Amount Small # Voids 1 ADLs: Meal Record Start: 01/08/18 16: 04 Freq: DAILY@0900,1400,1800 Status: Active Protocol: Created 01/08/18 16:04 System (Rec: 01/08/18 16:04 System TELE-M12) Document 01/08/18 18:00 [id number] (Rec: 01/08/18 21:37 [id number] TELE-C10) Document 01/09/18 09:00 [id number] (Rec: 01/09/18 10:14 [id number] TELE-C03) Document 01/09/18 14:00 [id number] (Rec: 01/09/18 14:05 [id number] TELE-M02) Document 01/09/18 17:40 [id number] (Rec: 01/09/18 17:40 [id number] TELE-C08) Intake and Output Start: 01/08/18 10: 55 Freq: Status: Active Protocol: Created 01/08/18 10:55 System (Rec: 01/08/18 10:55 System ED-C24) Intake and Output Start: 01/08/18 16: 04 Freq: DAILY@0600,1400,2200 Status: Active Protocol: Created 01/08/18 16:04 System (Rec: 01/08/18 16:04 System TELE-M12) Document 01/08/18 22:00 [id number] (Rec: 01/08/18 23:33 [id number] TELE-C10) Document 01/09/18 00:46 [id number] (Rec: 01/09/18 00:46 [id number] TELE-C08) Document 01/09/18 06:00 [id number] (Rec: 01/09/18 06:28 [id number] TELE-C01) Document 01/09/18 14:00 [id number] (Rec: 01/09/18 14:05 [id number] TELE-M02) Document 01/09/18 15:05 [id number] (Rec: 01/09/18 15:05 [id number] TELE-C07) Document 01/09/18 22:00 [id number] (Rec: 01/09/18 22:42 [id number] TELE-C11) Document 01/10/18 03:49 [id number] (Rec: 01/10/18 03:49 [id number] TELE-C08) Document 01/10/18 06:00 [id number] (Rec: 01/10/18 06:52 [id number] TELE-C11) - Physical Exam General Physical Exam Comment: Walm and well perfused. Sitting calmly in a chair. Aware of his situation and conversational General: No Cyanosis, Yes Anemia, No Jaundice Lungs and Chest: Yes: Chest Expansion Full, Chest Expansion Symetrica, Percussion Note Resonant, Vessicular Breath Sounds. No: Crackles, Wheezes Heart Rate and Rhythm: Regular Additional Cardiovascular: Yes: Normal Heart Sounds. No: Heart Murmur, Pedal Edema Abdominal Exam: Yes: Bowel Sounds Present. No: Distention, Abdominal Tenderness - Extremities Cranial Nerves II-XII Intact: Yes Limbs: Normal Sensation - direct sensation intact, no innattention, Abnormal Power - moving left hand, no proximal movement - Neuro Orientation: A/O x3 Speech: Normal Results - Results Lab Results: Laboratory Results - last 24 hr 01/09/18 01/09/18 01/09/18 06:31 11:42 16:52 WBC RBC Hgb Hct MCV MCH MCHC RDW Plt Count MPV Neut % (Auto) Lymph % (Auto) Allen % (Auto) Eos % (Auto) Baso % (Auto) Absolute Neuts (auto) Absolute Lymphs (auto) Absolute Monos (auto) Absolute Eos (auto) Absolute Basos (auto) Absolute Nucleated RBC Nucleated RBC % Sodium Potassium Chloride Carbon Dioxide Anion Gap BUN Creatinine Est GFR ( Amer) Est GFR (Non-Af Amer) BUN/Creatinine Ratio Glucose POC Glucose (mg/dL) 279 H 141 H Calcium C-Reactive Protein Prostate Specific Ag 5.529 H 01/09/18 01/10/18 01/10/18 21:07 06:31 06:31 WBC 6.6 RBC 2.94 L Hgb 8.2 L Hct 25 L MCV 84 MCH 28 MCHC 33 RDW 16 H Plt Count 370 MPV 8.2 Neut % (Auto) 75.1 Lymph % (Auto) 12.7 L Allen % (Auto) 8.6 H Eos % (Auto) 2.7 Baso % (Auto) 0.9 Absolute Neuts (auto) 5.0 Absolute Lymphs (auto) 0.8 L Absolute Monos (auto) 0.6 Absolute Eos (auto) 0.2 Absolute Basos (auto) 0.1 Absolute Nucleated RBC 0 Nucleated RBC % 0 Sodium 139 Potassium 5.2 H Chloride 112 H Carbon Dioxide 18 L Anion Gap 9 BUN 83 H Creatinine 3.73 H Est GFR ( Amer) 19.4 Est GFR (Non-Af Amer) 16.0 BUN/Creatinine Ratio 22.3 H Glucose 101 H POC Glucose (mg/dL) 169 H Calcium 9.2 C-Reactive Protein 12.60 H Prostate Specific Ag 01/10/18 07:27 WBC RBC Hgb Hct MCV MCH MCHC RDW Plt Count MPV Neut % (Auto) Lymph % (Auto) Allen % (Auto) Eos % (Auto) Baso % (Auto) Absolute Neuts (auto) Absolute Lymphs (auto) Absolute Monos (auto) Absolute Eos (auto) Absolute Basos (auto) Absolute Nucleated RBC Nucleated RBC % Sodium Potassium Chloride Carbon Dioxide Anion Gap BUN Creatinine Est GFR ( Amer) Est GFR (Non-Af Amer) BUN/Creatinine Ratio Glucose POC Glucose (mg/dL) 99 Calcium C-Reactive Protein Prostate Specific Ag Radiology Results: Patient Name: MARKIE MONTILLA Medical Record#: [id number] Ordering Physician: Rupinder JOHNSON Acct.#: [id number] : 1945 Age: 72 Sex: M Location: [address] [place] [address]/TELEMETRY Exam Date: 01/09/18914 ADM Status: ADM IN Order Information: MRI BRAIN W/O Accession Number: [id number] CPT: 13289 HISTORY: Brain mass COMPARISONS: January 08, 2018 CT of the head TECHNIQUE: The following sequences were obtained of the head: Sagittal T1- weighted images, axial T2-weighted images, coronal T2-weighted images, axial FLAIR images, axial susceptibility weighted images, axial T1-weighted images. Additionally, axial diffusion-weighted images were obtained with calculated apparent diffusion coefficients. FINDINGS: HEMORRHAGE/INFARCT: There is no hemorrhage or acute infarct. MASSES/SHIFT: Again noted is an extra-axial mass centered along the right posterior frontal lobe at the level of the superior frontal gyrus and precentral gyrus. This measures approximately 1.9 x 2.5 x 2.5 cm in size. There is mass effect upon the adjacent cortex. There is abnormal signal within the overlying calvarium, extending for approximately 6.4 cm, with dural thickening. There is also extension into the subcutaneous tissues of the scalp. There is no shift. EXTRA-AXIAL SPACES/MENINGES: As described above, there is an extra-axial mass with dural thickening along the right posterior frontal lobe. SULCI AND VENTRICLES: The sulci and ventricles are normal in size and position for the patient's stated age. CEREBRUM: As described above, there is an extra-axial mass along the right posterior frontal lobe. There is associated vasogenic edema deep to the mass. BRAINSTEM: There are no focal parenchymal abnormalities. CEREBELLUM: There are no focal parenchymal abnormalities. The cerebellar tonsils are normal in size and position. SELLA: The sella is normal. PINEAL: The pineal region is clear. CP ANGLE/TEMPORAL BONES: The labyrinthine structures are grossly normal. VESSELS: Normal flow-voids are noted within the visualized vertebral vasculature. DIFFUSION ABNORMALITIES: The extra-axial mass along the right frontal lobe demonstrates restricted diffusion. PARANASAL SINUSES/MASTOIDS: The paranasal sinuses are clear. ORBITS: The orbits are unremarkable. BONES AND SOFT TISSUE: As noted above, there is abnormal signal within the skull superficial to the extra-axial mass consistent with osseous involvement. This measures approximately 6.4 x 3.8 cm transversely. There is extension into the subcutaneous soft tissues of the scalp. OTHER: None IMPRESSION: 1. AGAIN NOTED IS AN EXTRA-AXIAL MASS ALONG THE RIGHT POSTERIOR FRONTAL LOBE MEASURING APPROXIMATELY 2.5 CM IN MAXIMUM DIMENSION. THERE IS MASS EFFECT ON THE ADJACENT CORTEX WITH VASOGENIC EDEMA. THERE IS DURAL THICKENING WITH EXTENSION INTO THE OVERLYING BONE AND INTO THE SUBCUTANEOUS SOFT TISSUES OF THE SCALP. 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 Absence of a signature indicates the report is in a draft status and still needs to be finalized. In the event this document was created by someone other than the signing Provider, the individual initiating the document will be listed in the "Entered by:" or "Dictated by:" dodson. 1 of 2 [facility] Patient Name:MARKIE MONTILLA MR:[id number] : 1945 2. THE DIFFERENTIAL INCLUDES INVASIVE/AGGRESSIVE MENINGIOMA, OR DURAL BASED METASTATIC DISEASE WITH EXTENSION TO THE OVERLYING BONE. PRIMARY OR OSSEOUS METASTATIC DISEASE IS ALSO WITHIN THE DIFFERENTIAL BUT IS CONSIDERED SOMEWHAT LESS LIKELY GIVEN THE IMAGING APPEARANCE <Electronically signed by Jamir Tee MD in [place]> 01/09/18 1152 Dictated By: Jamir Tee MD Dictated Date/Time: 01/09/18 1152 Transcribed Date/Time: 01/09/18 1142 Copy to: CC:Amando Stein MD; Loly Bronson MD; Markie Morataya MD; Mandi Ruiz MD; Rupinder JOHNSON; Kd Infante Patient Name: MARKIE MONTILLA Medical Record#: [id number] Ordering Physician: Amando Stein MD Acct.#: [id number] : 1945 Age: 72 Sex: M Location: [address] [place] [address] MEDICAL/TELEMETRY Exam Date: 01/09/18924 ADM Status: ADM IN Order Information: NM BONE SCAN- TOTAL BODY Accession Number: [id number] CPT: 37000 INDICATION: Prostate carcinoma. Skull lesion on recent CT COMPARISON: CT brain January 08, 2018; MRI brain January 09, 2018; CT abdomen and pelvis November 18, 2016 TECHNIQUE: Following the intravenous administration of 20.4 millicuries of technetium 99m HDP, a total body bone scan was performed. FINDINGS: There is intense activity involving the frontal bone near the vertex corresponding to known bony lesions identified on recent CT and MR imaging. There are no other abnormal areas of increased isotopic activity. There are no other scintigraphic evidence of osseous metastatic disease. There is asymmetric activity in the right kidney consistent with hydronephrosis. The left kidney is relatively photopenic. This is consistent with earlier CT findings showing right renal stenting with hydronephrosis and an atrophic left kidney. IMPRESSION: THE KNOWN CALVARIAL LESION SHOWS RAPID BONY TURNOVER. THERE ARE NO ADDITIONAL SCINTIGRAPHIC ABNORMALITIES OF BONE. CPT II Codes: 3570F PQRS (Nuc med compare/no prior) <Electronically signed by Jose Phillips MD in OV> 01/09/18 1322 Dictated By: Jose Phillips MD Dictated Date/Time: 01/09/18 1322 Transcribed Date/Time: 01/09/18 1316 Copy to: CC:Amando Stein MD; Loly Bronson MD; Markie Morataya MD; Mandi Ruiz MD; Kd Infante MD Imaging - [facility] - [facility] [address] [address] ph ([phone]) ph ([phone]) ph ([phone]) \\ Other Results/Reports: RUN DATE: 01/10/18 [facility] LAB LIVE PAGE 1 RUN TIME: [address] [place], [place] [address] Specimen Inquiry Name: MARKIE MONTILLA : [address]: Amando Stein MD Acct: [id number] Unit: [id number] AGE: 72 Location: [place] [address] Re01/08/18 SEX: M Status: ADM IN SPEC: [id number] JESS: 01/08/18-[address]: Vamsi Gordon MD REQ: [id number] RECD: 01/08/18 STATUS: RES OTHR DR: Amando Stein MD _ Mandi Ruiz MD SOURCE: URINE SPDESC: ORDERED: Urine Culture Procedure Result Reported Site Urine Culture Preliminary 01/09/18- 1436 ML Organism 1 KLEBSIELLA OXYTOCA [place] Count >100,000 (Many) CFU/ML * ML - Main Lab . Assessment - Problem List Assessment: Patient Problems Complex partial seizure (Acute) 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 (Acute) Stage 4 chronic kidney disease (Acute) UTI (urinary tract infection) (Acute) Afib (Chronic) Anemia (Chronic) Anticoagulation goal of INR 2 to 3 (Chronic) Chronic indwelling Jarrell catheter (Chronic) DVT prophylaxis (Chronic) Diabetes mellitus with insulin therapy (Chronic) History of osteomyelitis (Chronic) Hyperlipidemia (Chronic) Hypertension (Chronic) Lumbar spinal stenosis (Chronic) Nephrolithiasis (Chronic) Paroxysmal atrial fibrillation (Chronic) Restless legs (Chronic) S/P laminectomy (Chronic) Status post total hip replacement, right (Chronic) Type 2 diabetes mellitus (Chronic) Plan: Complex partial seizure (Acute)Extra-axial brain tumor (Acute)Paralysis of left upper extremity (Acute) His weakness in the left hand is improved. Dr. 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 I will wait to see if there is further improvement. If not, I will start him on steroids tomorrow to see if there is any edema contributing to his weakness. The PSA is mildly elevated at 4. The NM bone scan is negative aside from the known scalp lesion. The FNA report is pending. He is likely to have surgery at the end of this week, if this is possible I will likely keep as an inpatient Stage 4 chronic kidney disease (Acute) ongoing Afib (Chronic) I will consider heparin - he was taking enoxaparin. I think this is hazardous with this degree of renal insufficiency Chronic indwelling Jarrell catheter (Chronic) UTI - he has Klebsiella oxytoca - this is sensitive to all Rx but ampicillin. I will treat with levofloxacin 250 mg qod and change jarrell DVT prophylaxis (Chronic) Type 2 diabetes mellitus (Chronic)Diabetes mellitus with insulin therapy ( Chronic) On target - continue current Rx Anemia (Acute) ongoing - no change - he is adapted to this History of osteomyelitis (Chronic) inactive Hyperlipidemia (Chronic) secondary diagnosis Hypertension (Chronic) secondary diagnosis Lumbar spinal stenosis (Chronic) Nephrolithiasis (Chronic) secondary diagnosis Paroxysmal atrial fibrillation (Chronic) Anticoagulation - I will start him on heparin IV - for warfarin later. Restless legs (Chronic) ongoing S/P laminectomy (Chronic) Status post total hip replacement, right (Chronic) I spoke with the patient and on the phone with Talita Montilla and explained the above. They agree with continuing the management plan
[2018-01-10] MEDS: Insulin LISPRO* 1 UNITS UNIT SUBCUT SCH ×4 (07:55→21:19)
[2018-01-10] MEDS: Ascorbic Acid TAB* 500 MG PO SCH (08:29)
[2018-01-10] MEDS: Ferrous Sulfate TAB* 325 MG PO SCH (08:29)
[2018-01-10] MEDS: Chlorthalidone TAB* 50 MG PO SCH (08:29)
[2018-01-10] MEDS: Docusate CAP* 100 MG PO SCH ×2 (08:29→20:37)
[2018-01-10] MEDS: levETIRAcetam TAB* 500 MG PO SCH ×2 (08:30→20:38)
[2018-01-10] MEDS: Levofloxacin 250 MG IVPREMX(*) 250 MG/50 ML BAG IVPB SCH (09:02)
--- NOTE | 2018-01-10 09:21 | PN ---
NEUROLOGICAL FOLLOWUP NOTE: DATE OF SERVICE: 01/09/18 HISTORY: This is a 72-year-old man with left arm weakness and new onset of probable seizures. He has no new complaints. He did have 2 brief, less than 30 - second episodes of rhythmic jerking of his left arm, yesterday once he got admitted. He has had no loss of consciousness with these episodes. His weakness is unchanged. He has been seen by Dr. Infante, who recommended a needle biopsy of the scalp lesion. MEDICATIONS: His medicines remained: 1. Ventolin 2.5 p.r.n. 2. Lipitor 40 mg daily. 3. Hygroton 25 daily. 4. Diltiazem 240 at bedtime. 5. Colace 100 mg b.i.d. 6. Keppra 750 twice a day. 7. Morphine sulfate p.r.n. 8. Zofran p.r.n. 9. Percocet 5/325 two tablets p.r.n. 10. Desyrel 50 mg at bedtime. PHYSICAL EXAMINATION: Temperature 97.7, pulse 63, respirations 16, blood pressure 131/55. He is alert and oriented with normal speech and comprehension. Cranial nerves II through XII are intact other than some subtle left facial weakness. He has 4-/5 strength in the left arm. He is able to walk by report. Chest: Clear. Cardiovascular: Regular rate and rhythm. Abdomen is soft. DIAGNOSTIC STUDIES: I reviewed his MRI scan, which showed a dural-based lesion same as on CT scan with invasion into the brain and extension through the skull to the scalp. IMPRESSION AND PLAN: I agree with the differential, meaning most likely meningioma and prostate cancer mets, but the biopsy of the superficial lesion should provide a definitive answer and then the plans will be per Oncology and Surgery to follow. In terms of seizures, he is continuing to have some seizures , although his EEG did not show a seizure focus. We will increase his Keppra to 1000 mg twice a day at this point. Thank you for sharing his case. [id number]/[facility] #: [id number] [facility]
[2018-01-10] MEDS: Heparin DRIP 25,000 UNITS(*) 25,000 UNITS/500 ML BAG IV SCH (09:24)
[2018-01-10] MEDS: Heparin VIAL(*) 5000 UNITS/ML VIAL (FIVE THOUSAND) IV PRN (09:28)
[2018-01-10] MEDS: Diltiazem CD CAP* 240 MG PO SCH (20:37)
[2018-01-10] MEDS: Atorvastatin* 40 MG TAB PO SCH (20:37)
[2018-01-10] MEDS: Omeprazole CAP* 20 MG PO SCH (20:38)
[2018-01-10] MEDS: traZODone TAB* 50 MG TAB PO SCH (20:38)
[2018-01-10] MEDS: Melatonin 3 MG TAB PO PRN (20:45)
--- NOTE | 2018-01-11 05:22 | PN ---
NEUROLOGICAL FOLLOWUP NOTE: DATE OF SERVICE: 01/10/18 PATIENT OF: Dr. Stein. HISTORY: Landon has somewhat better strength in his left hand and in more use, but still has weakness in his arm. He notes that he had 1 episode of jerking of his left arm today, which was brief and no loss of awareness. His medications remained unchanged and he is tolerating his Keppra. We will have increasing of the Keppra. Please call me if he has further seizures in the hospital, otherwise I will see him as an outpatient. [id number]/[facility] #: [id number] [facility]
[2018-01-11 05:51] LABS: ABS Basophils 0 10^3/ul (0-0.2); ABS Eosinophils 0.1 10^3/ul (0-0.6); ABS Lymphocytes 0.8 10^3/ul (1.0-4.8); ABS Monocytes 0.8 10^3/ul (0-0.8); ABS Neutrophils 5.4 10^3/ul (1.5-7.7); ABS Nucleated RBC 0 10^3/ul; Eosinophil % 1.3 % (0-6); Hematocrit 27 % (42-52); Hemoglobin 8.8 g/dl (14.0-18.0); Lymphocyte % 11.5 % (25-47); Mean Corpuscular HGB Conc 33 g/dl (31-36); Mean Corpuscular Hemoglobin 27 pg (27-31); Mean Corpuscular Volume 84 fL (80-94); Nucleated Red Blood Cells % 0.1; Platelet Count 353 10^3/ul (150-450); Red Blood Count 3.21 10^6/ul (4.00-5.40); Red Cell Distribution Width 16 % (10.5-15); White Blood Count 7.2 10^3/ul (3.5-10.8)
[2018-01-11 06:11] LABS: EGFR Non-African American 15.7 (>60)
--- NOTE | 2018-01-11 07:24 | PN ---
Subjective - Subjective Reason for Note: Progress Note History: He is sitting in the chair and conversational. Yesterday, he had a brief episode of complex partial seizure affecting his left arm. I reviewed Dr. Morataya's note - he has increased his keppra. We changed his Burgess catheter and started him on levofloxacin for a UTI. He has no pain and has not developed a headache. He has no nausea or anorexia, his bowels are normal. He has had no chest pain or palpitations. He has no cough/dyspnea. 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 Diabetes mellitus with insulin therapy (Chronic) E11.9, Z79.4 - Hold oral DM meds - FSBG ACHS with Lispro SS - Lantus increased last night but sugar remains high, will increase to 20 units tonight History of osteomyelitis (Chronic) Z87.39 History of prostate cancer (Chronic) Z85.46 Hyperlipidemia (Chronic) E78.5 - statin Hypertension (Chronic) I10 - Continue Cardizem and Chlorthalidone Lumbar spinal stenosis (Chronic) M48.06 Nephrolithiasis (Chronic) N20.0 Paroxysmal atrial fibrillation (Chronic) I48.0 - Rate and rhythm regular - Continue cardizem and coumadin Restless legs (Chronic) S/P laminectomy (Chronic) Z98.890 Status post total hip replacement, right (Chronic) Z96.641 - POD2 - POC as per ortho service - Continue DVT prophy with coumadin bridge - Pain control, bowel regimen, OOB with PT/OT Type 2 diabetes mellitus (Chronic) Current Medications: Current Medications Acetaminophen (Tylenol Tab*) 650 mg PO Q4H PRN PRN Reason: FEVER/PAIN Al Hydrox/Mg Hydrox/Simethicone (Maalox Plus*) 30 ml PO Q6H PRN PRN Reason: INDIGESTION Albuterol (Ventolin 2.5 Mg/3 Ml Neb.Gertrude*) 2.5 mg INH RT.[id number] AWAKE PRN PRN Reason: sob/wheezing Ascorbic Acid (Vitamin C Tab*) 500 mg PO DAILY [facility] Last Admin: 01/10/18 08:29 Dose: 500 mg Atorvastatin Calcium (Lipitor*) 40 mg PO BEDTIME [facility] Last Admin: 01/10/18 20:37 Dose: 40 mg Chlorthalidone (Hygroton Tab*) 25 mg PO QAM [facility] Last Admin: 01/10/18 08:29 Dose: 25 mg Dextrose (D50w Syringe 50 Ml*) 12.5 gm IV PUSH .FOR FS < 60 - SS PRN PRN Reason: FS < 60 Diltiazem HCl (Cardizem Cd Cap*) 240 mg PO BEDTIME [facility] Last Admin: 01/10/18 20:37 Dose: 240 mg Docusate Sodium (Colace Cap*) 100 mg PO BID [facility] Last Admin: 01/10/18 20:37 Dose: 100 mg Ferrous Sulfate (Ferrous Sulfate Tab*) 325 mg PO DAILY [facility] Last Admin: 01/10/18 08:29 Dose: 325 mg Heparin Sodium (Porcine) (Heparin Vial(*)) 0 units IV .PER PROTOCOL PRN PRN Reason: HEPARIN BOLUSES Last Admin: 01/10/18 09:28 Dose: 6,800 units Levofloxacin/Dextrose (Levaquin 250 Mg Ivpremx(*)) 250 mg in 50 mls @ 50 mls/ hr IVPB Q48H [facility] Last Admin: 01/10/18 09:02 Dose: 50 mls/hr Heparin Sodium/Dextrose (Heparin Drip 25,000 Units(*)) 25,000 units in 500 mls @ 0 mls/hr IV PER RATE [facility]; Protocol Last Admin: 01/10/18 09:24 Dose: 29 mls/hr Insulin Human Lispro (Humalog*) 0 units SUBCUT ACHS [facility]; Protocol Last Admin: 01/10/18 21:19 Dose: 4 unit Levetiracetam (Keppra Tab*) 1,000 mg PO BID [facility] Last Admin: 01/10/18 20:38 Dose: 1,000 mg Lorazepam (Ativan Inj*) 1 mg IV PUSH Q6H PRN PRN Reason: ANXIETY Magnesium Hydroxide (Milk Of Magnesia Liq*) 30 ml PO Q4H PRN PRN Reason: CONSTIPATION Melatonin (Melatonin) 3 mg PO BEDTIME PRN; Protocol PRN Reason: Sleep Last Admin: 01/10/18 20:45 Dose: 3 mg Morphine Sulfate (Morphine Vial*) 2 mg IV Q4H PRN PRN Reason: PAIN Omeprazole (Prilosec Cap*) 20 mg PO BEDTIME [facility] Last Admin: 01/10/18 20:38 Dose: 20 mg Ondansetron HCl (Zofran Inj*) 4 mg IV Q4H PRN PRN Reason: NAUSEA/VOMITING Oxycodone/Acetaminophen (Percocet 5/325 Tab*) 2 tab PO Q6H PRN PRN Reason: Pain Tramadol HCl (Ultram*) 50 mg PO Q6H PRN PRN Reason: PAIN Trazodone HCl (Desyrel Tab*) 50 mg PO BEDTIME [facility] Last Admin: 01/10/18 20:38 Dose: 50 mg Home Medications: Home Medications Medication Instructions Recorded Confirmed Type Ascorbic Acid TAB* [Vitamin C 500 mg PO DAILY 12/12/17 01/08/18 History TAB*] Atorvastatin* [Lipitor*] 40 mg PO BEDTIME 12/12/17 01/08/18 History Chlorthalidone TAB* [Hygroton TAB*] 25 mg PO QAM 12/12/17 01/08/18 History Enoxaparin(*) [Lovenox(*)] 100 mg SUBCUT Q12HR #16 syringe 12/12/17 01/08/18 Rx Ferrous Sulfate TAB* 325 mg PO DAILY 12/12/17 01/08/18 History Insulin NPH Human Isophane 14 unit SUBCUT BEDTIME 12/12/17 01/08/18 History [Humulin N Kwikpen] Multivit-Mins/Iron/Folic/Lycop 1 tab PO DAILY 12/12/17 01/08/18 History [Centrum Ultra Mens] Omeprazole CAP* [Prilosec CAP* 20 20 mg PO BEDTIME 12/12/17 01/08/18 History MG] Warfarin TAB(*) [Coumadin TAB(*)] 3 mg PO EVERY OTHER DAY 12/12/17 01/08/18 History Warfarin TAB(*) [Coumadin TAB(*)] 4 mg PO EVERY OTHER DAY 12/12/17 01/08/18 History dilTIAZem HCl [Cartia Xt] 240 mg PO BEDTIME 12/12/17 01/08/18 History glipiZIDE TAB* [Glucotrol TAB*] 10 mg PO BID 12/12/17 01/08/18 History traMADol TAB* [Ultram*] 50 mg PO Q4H PRN MDD 6 tablets 12/12/17 01/08/18 History traZODone TAB* [Desyrel TAB*] 50 mg PO BEDTIME 12/12/17 01/08/18 History Allergies: Allergies Allergy/AdvReac Type Severity Reaction Status Date / Time codeine Allergy tongue Verified 01/08/18 10:55 swells hydrochlorothiazide Allergy increased Verified 01/08/18 10:55 [From Zestoretic] bun/ cr indapamide Allergy hypotension Verified 01/08/18 10:55 lisinopril Allergy Rash Verified 01/08/18 10:55 Objective - Vital Signs Vital Signs: Vital Signs 01/10/18 01/10/18 01/10/18 07:34 08:00 11:01 Temperature 97.7 F 98.0 F Pulse Rate 66 68 Respiratory 16 16 16 Rate Blood Pressure 136/59 138/62 (mmHg) O2 Sat by Pulse 99 100 Oximetry 01/10/18 01/10/18 01/10/18 15:15 19:40 20:00 Temperature 98.8 F 98.0 F Pulse Rate 74 68 Respiratory 18 18 18 Rate Blood Pressure 143/69 159/69 (mmHg) O2 Sat by Pulse 100 99 Oximetry 01/11/18 01/11/18 00:25 03:43 Temperature 98.2 F 97.4 F Pulse Rate 66 68 Respiratory 20 20 Rate Blood Pressure 151/59 134/62 (mmHg) O2 Sat by Pulse 100 100 Oximetry - Intake and Output Intake and Output: Intake & Output 01/08/18 01/09/18 01/10/18 01/11/18 11:59 11:59 11:59 11:59 Intake Total 830 2280 2120 Output Total 3063 8542 2133 Balance -1745 -995 -530 Weight 210 lb 214 lb Intake: IV Fluids 110 20 ABX - LEVOFLOXACIN 20 IVPB 80 ABX - LEVOFLOXACIN 80 Heparin 390 Oral 720 2180 1730 Output: Urine 200 925 Burgess 2375 2350 2650 Other: Estimated Void Medium # Bowel Movements 0 0 2 Estimated Stool Amount Small Medium # Voids 1 ADLs: Meal Record Start: 01/08/18 16: 04 Freq: DAILY@0900,1400,1800 Status: Active Protocol: Created 01/08/18 16:04 System (Rec: 01/08/18 16:04 System TELE-M12) Document 01/08/18 18:00 [id number] (Rec: 01/08/18 21:37 [id number] TELE-C10) Document 01/09/18 09:00 [id number] (Rec: 01/09/18 10:14 [id number] TELE-C03) Document 01/09/18 14:00 [id number] (Rec: 01/09/18 14:05 [id number] TELE-M02) Document 01/09/18 17:40 [id number] (Rec: 01/09/18 17:40 [id number] TELE-C08) Document 01/10/18 09:00 [id number] (Rec: 01/10/18 10:33 [id number] TELE-C01) Document 01/10/18 14:00 [id number] (Rec: 01/10/18 14:14 [id number] TELE-C01) Document 01/10/18 17:24 [id number] (Rec: 01/10/18 17:25 [id number] TELE-C08) Intake and Output Start: 01/08/18 10: 55 Freq: Status: Active Protocol: Created 01/08/18 10:55 System (Rec: 01/08/18 10:55 System ED-C24) Intake and Output Start: 01/08/18 16: 04 Freq: DAILY@0600,1400,2200 Status: Active Protocol: Created 01/08/18 16:04 System (Rec: 01/08/18 16:04 System TELE-M12) Document 01/08/18 22:00 [id number] (Rec: 01/08/18 23:33 [id number] TELE-C10) Document 01/09/18 00:46 [id number] (Rec: 01/09/18 00:46 [id number] TELE-C08) Document 01/09/18 06:00 [id number] (Rec: 01/09/18 06:28 [id number] TELE-C01) Document 01/09/18 14:00 [id number] (Rec: 01/09/18 14:05 [id number] TELE-M02) Document 01/09/18 15:05 [id number] (Rec: 01/09/18 15:05 [id number] TELE-C07) Document 01/09/18 22:00 [id number] (Rec: 01/09/18 22:42 [id number] TELE-C11) Document 01/10/18 03:49 [id number] (Rec: 01/10/18 03:49 [id number] TELE-C08) Document 01/10/18 06:00 [id number] (Rec: 01/10/18 06:52 [id number] TELE-C11) Document 01/10/18 14:00 [id number] (Rec: 01/10/18 14:14 [id number] TELE-C01) Document 01/10/18 21:47 [id number] (Rec: 01/10/18 21:48 [id number] TELE-C11) Document 01/10/18 22:00 [id number] (Rec: 01/10/18 22:01 [id number] TELE-C11) Document 01/10/18 22:02 [id number] (Rec: 01/10/18 22:02 [id number] TELE-C09) Document 01/11/18 06:00 [id number] (Rec: 01/11/18 06:13 [id number] TELE-C35) Document 01/11/18 06:17 [id number] (Rec: 01/11/18 06:18 [id number] TELE-C35) - Physical Exam General: No Cyanosis, Yes Anemia, No Jaundice, No Clubbing Lungs and Chest: Yes: Chest Expansion Full, Chest Expansion Symetrica, Percussion Note Resonant, Vessicular Breath Sounds. No: Crackles, Wheezes Heart Rate and Rhythm: Irregular Additional Cardiovascular: Yes: Normal Heart Sounds. No: Heart Murmur, Pedal Edema Abdominal Exam: Yes: Soft, Bowel Sounds Present. No: Distention, Abdominal Tenderness - Extremities Cranial Nerves II-XII Intact: Yes Limbs: Abnormal Power - left hand is weaker than yesterday - Neuro Orientation: A/O x3 Speech: Normal Results - Results Lab Results: Laboratory Results - last 24 hr 01/10/18 01/10/18 01/10/18 06:31 07:27 08:55 WBC RBC Hgb Hct MCV MCH MCHC RDW Plt Count MPV Neut % (Auto) Lymph % (Auto) [place] % (Auto) Eos % (Auto) Baso % (Auto) Absolute Neuts (auto) Absolute Lymphs (auto) Absolute Monos (auto) Absolute Eos (auto) Absolute Basos (auto) Absolute Nucleated RBC Nucleated RBC % APTT 31.0 Potassium 5.2 H Anion Gap 9 BUN Creatinine Est GFR ( Amer) Est GFR (Non-Af Amer) POC Glucose (mg/dL) 99 01/10/18 01/10/18 01/10/18 11:35 15:18 16:38 WBC RBC Hgb Hct MCV MCH MCHC RDW Plt Count MPV Neut % (Auto) Lymph % (Auto) [place] % (Auto) Eos % (Auto) Baso % (Auto) Absolute Neuts (auto) Absolute Lymphs (auto) Absolute Monos (auto) Absolute Eos (auto) Absolute Basos (auto) Absolute Nucleated RBC Nucleated RBC % APTT 78.1 H Potassium Anion Gap BUN Creatinine Est GFR ( Amer) Est GFR (Non-Af Amer) POC Glucose (mg/dL) 153 H 240 H 01/10/18 01/10/18 01/11/18 20:37 21:32 03:38 WBC RBC Hgb Hct MCV MCH MCHC RDW Plt Count MPV Neut % (Auto) Lymph % (Auto) [place] % (Auto) Eos % (Auto) Baso % (Auto) Absolute Neuts (auto) Absolute Lymphs (auto) Absolute Monos (auto) Absolute Eos (auto) Absolute Basos (auto) Absolute Nucleated RBC Nucleated RBC % APTT 52.1 H 50.0 H Potassium Anion Gap BUN Creatinine Est GFR ( Amer) Est GFR (Non-Af Amer) POC Glucose (mg/dL) 232 H 01/11/18 01/11/18 05:42 05:42 WBC 7.2 RBC 3.21 L Hgb 8.8 L Hct 27 L MCV 84 MCH 27 MCHC 33 RDW 16 H Plt Count 353 MPV 8.0 Neut % (Auto) 75.7 Lymph % (Auto) 11.5 L [place] % (Auto) 11.0 H Eos % (Auto) 1.3 Baso % (Auto) 0.5 Absolute Neuts (auto) 5.4 Absolute Lymphs (auto) 0.8 L Absolute Monos (auto) 0.8 Absolute Eos (auto) 0.1 Absolute Basos (auto) 0 Absolute Nucleated RBC 0 Nucleated RBC % 0.1 APTT Potassium Anion Gap BUN 84 H Creatinine 3.79 H Est GFR ( Amer) 19.0 Est GFR (Non-Af Amer) 15.7 POC Glucose (mg/dL) Assessment - Problem List Assessment: Patient Problems Complex partial seizure (Acute) 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 (Acute) Stage 4 chronic kidney disease (Acute) UTI (urinary tract infection) (Acute) Afib (Chronic) Anemia (Chronic) Anticoagulation goal of INR 2 to 3 (Chronic) Chronic indwelling Burgess catheter (Chronic) DVT prophylaxis (Chronic) Diabetes mellitus with insulin therapy (Chronic) History of osteomyelitis (Chronic) History of prostate cancer (Chronic) Hyperlipidemia (Chronic) Hypertension (Chronic) Lumbar spinal stenosis (Chronic) Nephrolithiasis (Chronic) Paroxysmal atrial fibrillation (Chronic) Restless legs (Chronic) S/P laminectomy (Chronic) Status post total hip replacement, right (Chronic) Type 2 diabetes mellitus (Chronic) Plan: Complex partial seizure (Acute)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 Today his left hand is a little weaker. He has no other new symptoms Stage 4 chronic kidney disease (Acute) stable UTI (urinary tract infection) (Acute) Chronic indwelling Burgess catheter (Chronic ) We are treating this with levofloxacin and we changed his Burgess Afib (Chronic) anticoagulated with heparin. We will stop this overnight if he goes for surgery tomorrow. Anemia (Chronic) ongoing Anticoagulation goal of INR 2 to 3 (Chronic) At present not on warfarin DVT prophylaxis (Chronic) Diabetes mellitus with insulin therapy (Chronic) His glucose is running higher History of osteomyelitis (Chronic) History of prostate cancer (Chronic) Hyperlipidemia (Chronic) secondary diagnosis Hypertension (Chronic) running a little higher than usual He may be going to surgery tomorrow, depending on room on the neurosurgery list. If so, we will make him NPO overnight and stop his heparin infusion. He has no other new issues today.
[2018-01-11] MEDS: Insulin LISPRO* 1 UNITS UNIT SUBCUT SCH ×4 (07:33→22:01)
[2018-01-11] MEDS: Insulin GLARGINE(*) 1 UNITS UNIT SUBCUT SCH (08:22)
[2018-01-11] MEDS: levETIRAcetam TAB* 500 MG PO SCH ×2 (08:28→22:01)
[2018-01-11] MEDS: Ferrous Sulfate TAB* 325 MG PO SCH (08:28)
[2018-01-11] MEDS: Ascorbic Acid TAB* 500 MG PO SCH (08:28)
[2018-01-11] MEDS: Docusate CAP* 100 MG PO SCH ×2 (08:28→22:01)
[2018-01-11] MEDS: Chlorthalidone TAB* 50 MG PO SCH (08:28)
[2018-01-11] MEDS: Omeprazole CAP* 20 MG PO SCH (22:01)
[2018-01-11] MEDS: Melatonin 3 MG TAB PO PRN (22:01)
[2018-01-11] MEDS: Diltiazem CD CAP* 240 MG PO SCH (22:01)
[2018-01-11] MEDS: traZODone TAB* 50 MG TAB PO SCH (22:01)
[2018-01-11] MEDS: Atorvastatin* 40 MG TAB PO SCH (22:01)
[2018-01-12] MEDS: Heparin DRIP 25,000 UNITS(*) 25,000 UNITS/500 ML BAG IV SCH ×5 (05:32→22:58)
[2018-01-12 06:37] LABS: ABS Basophils 0 10^3/ul (0-0.2); ABS Eosinophils 0.1 10^3/ul (0-0.6); ABS Lymphocytes 1.2 10^3/ul (1.0-4.8); ABS Monocytes 0.7 10^3/ul (0-0.8); ABS Neutrophils 5.1 10^3/ul (1.5-7.7); ABS Nucleated RBC 0 10^3/ul; Eosinophil % 1.4 % (0-6); Hematocrit 25 % (42-52); Hemoglobin 8.4 g/dl (14.0-18.0); Lymphocyte % 16.3 % (25-47); Mean Corpuscular HGB Conc 34 g/dl (31-36); Mean Corpuscular Hemoglobin 28 pg (27-31); Mean Corpuscular Volume 83 fL (80-94); Mean Platelet Volume 8.1 um3 (7.4-10.4); Nucleated Red Blood Cells % 0; Platelet Count 345 10^3/ul (150-450); Red Blood Count 3.04 10^6/ul (4.00-5.40); Red Cell Distribution Width 16 % (10.5-15); White Blood Count 7.1 10^3/ul (3.5-10.8)
[2018-01-12 07:03] LABS: EGFR Non-African American 16.8 (>60)
--- NOTE | 2018-01-12 07:40 | PN ---
Subjective - Subjective Reason for Note: Progress Note History: Landon Montilla has no more weakness in his left hand. He denies headache and any nausea/vomiting. He is tolerating the antibacterial therapy. He has hadn't had further seizures. 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 Diabetes mellitus with insulin therapy (Chronic) E11.9, Z79.4 - Hold oral DM meds - FSBG ACHS with Lispro SS - Lantus increased last night but sugar remains high, will increase to 20 units tonight History of osteomyelitis (Chronic) Z87.39 History of prostate cancer (Chronic) Z85.46 Hyperlipidemia (Chronic) E78.5 - statin Hypertension (Chronic) I10 - Continue Cardizem and Chlorthalidone Lumbar spinal stenosis (Chronic) M48.06 Nephrolithiasis (Chronic) N20.0 Paroxysmal atrial fibrillation (Chronic) I48.0 - Rate and rhythm regular - Continue cardizem and coumadin Restless legs (Chronic) S/P laminectomy (Chronic) Z98.890 Status post total hip replacement, right (Chronic) Z96.641 - POD2 - POC as per ortho service - Continue DVT prophy with coumadin bridge - Pain control, bowel regimen, OOB with PT/OT Type 2 diabetes mellitus (Chronic) Current Medications: Current Medications Acetaminophen (Tylenol Tab*) 650 mg PO Q4H PRN PRN Reason: FEVER/PAIN Al Hydrox/Mg Hydrox/Simethicone (Maalox Plus*) 30 ml PO Q6H PRN PRN Reason: INDIGESTION Albuterol (Ventolin 2.5 Mg/3 Ml Neb.Gertrude*) 2.5 mg INH [id number] AWAKE PRN PRN Reason: sob/wheezing Ascorbic Acid (Vitamin C Tab*) 500 mg PO DAILY [facility] Last Admin: 01/11/18 08:28 Dose: 500 mg Atorvastatin Calcium (Lipitor*) 40 mg PO BEDTIME [facility] Last Admin: 01/11/18 22:01 Dose: 40 mg Chlorthalidone (Hygroton Tab*) 25 mg PO QAM [facility] Last Admin: 01/11/18 08:28 Dose: 25 mg Dextrose (D50w Syringe 50 Ml*) 12.5 gm IV PUSH .FOR FS < 60 - SS PRN PRN Reason: FS < 60 Diltiazem HCl (Cardizem Cd Cap*) 240 mg PO BEDTIME [facility] Last Admin: 01/11/18 22:01 Dose: 240 mg Docusate Sodium (Colace Cap*) 100 mg PO BID [facility] Last Admin: 01/11/18 22:01 Dose: 100 mg Ferrous Sulfate (Ferrous Sulfate Tab*) 325 mg PO DAILY [facility] Last Admin: 01/11/18 08:28 Dose: 325 mg Heparin Sodium (Porcine) (Heparin Vial(*)) 0 units IV .PER PROTOCOL PRN PRN Reason: HEPARIN BOLUSES Last Admin: 01/10/18 09:28 Dose: 6,800 units Levofloxacin/Dextrose (Levaquin 250 Mg Ivpremx(*)) 250 mg in 50 mls @ 50 mls/ hr IVPB Q48H [facility] Last Admin: 01/10/18 09:02 Dose: 50 mls/hr Heparin Sodium/Dextrose (Heparin Drip 25,000 Units(*)) 25,000 units in 500 mls @ 0 mls/hr IV PER RATE [facility]; Protocol Last Admin: 01/12/18 05:32 Dose: 25 mls/hr Insulin Glargine (Lantus(*)) 12 units SUBCUT Q24H [facility] Last Admin: 01/11/18 08:22 Dose: 12 units Insulin Human Lispro (Humalog*) 0 units SUBCUT ACHS [facility]; Protocol Last Admin: 01/11/18 22:01 Dose: 4 unit Levetiracetam (Keppra Tab*) 1,000 mg PO BID [facility] Last Admin: 01/11/18 22:01 Dose: 1,000 mg Lorazepam (Ativan Inj*) 1 mg IV PUSH Q6H PRN PRN Reason: ANXIETY Magnesium Hydroxide (Milk Of Magndiane Liq*) 30 ml PO Q4H PRN PRN Reason: CONSTIPATION Melatonin (Melatonin) 3 mg PO BEDTIME PRN; Protocol PRN Reason: Sleep Last Admin: 01/11/18 22:01 Dose: 3 mg Morphine Sulfate (Morphine Vial*) 2 mg IV Q4H PRN PRN Reason: PAIN Last Admin: 01/12/18 02:36 Dose: 2 mg Omeprazole (Prilosec Cap*) 20 mg PO BEDTIME [facility] Last Admin: 01/11/18 22:01 Dose: 20 mg Ondansetron HCl (Zofran Inj*) 4 mg IV Q4H PRN PRN Reason: NAUSEA/VOMITING Oxycodone/Acetaminophen (Percocet 5/325 Tab*) 2 tab PO Q6H PRN PRN Reason: Pain Tramadol HCl (Ultram*) 50 mg PO Q6H PRN PRN Reason: PAIN Last Admin: 01/12/18 02:37 Dose: 50 mg Trazodone HCl (Desyrel Tab*) 50 mg PO BEDTIME [facility] Last Admin: 01/11/18 22:01 Dose: 50 mg Home Medications: Home Medications Medication Instructions Recorded Confirmed Type Ascorbic Acid TAB* [Vitamin C 500 mg PO DAILY 12/12/17 01/08/18 History TAB*] Atorvastatin* [Lipitor*] 40 mg PO BEDTIME 12/12/17 01/08/18 History Chlorthalidone TAB* [Hygroton TAB*] 25 mg PO QAM 12/12/17 01/08/18 History Enoxaparin(*) [Lovenox(*)] 100 mg SUBCUT Q12HR #16 syringe 12/12/17 01/08/18 Rx Ferrous Sulfate TAB* 325 mg PO DAILY 12/12/17 01/08/18 History Insulin NPH Human Isophane 14 unit SUBCUT BEDTIME 12/12/17 01/08/18 History [Humulin N Kwikpen] Multivit-Mins/Iron/Folic/Lycop 1 tab PO DAILY 12/12/17 01/08/18 History [Centrum Ultra Mens] Omeprazole CAP* [Prilosec CAP* 20 20 mg PO BEDTIME 12/12/17 01/08/18 History MG] Warfarin TAB(*) [Coumadin TAB(*)] 3 mg PO EVERY OTHER DAY 12/12/17 01/08/18 History Warfarin TAB(*) [Coumadin TAB(*)] 4 mg PO EVERY OTHER DAY 12/12/17 01/08/18 History dilTIAZem HCl [Cartia Xt] 240 mg PO BEDTIME 12/12/17 01/08/18 History glipiZIDE TAB* [Glucotrol TAB*] 10 mg PO BID 12/12/17 01/08/18 History traMADol TAB* [Ultram*] 50 mg PO Q4H PRN MDD 6 tablets 12/12/17 01/08/18 History traZODone TAB* [Desyrel TAB*] 50 mg PO BEDTIME 12/12/17 01/08/18 History Allergies: Allergies Allergy/AdvReac Type Severity Reaction Status Date / Time codeine Allergy tongue Verified 01/08/18 10:55 swells hydrochlorothiazide Allergy increased Verified 01/08/18 10:55 [From Zestoretic] bun/ cr indapamide Allergy hypotension Verified 01/08/18 10:55 lisinopril Allergy Rash Verified 01/08/18 10:55 Objective - Vital Signs Vital Signs: Vital Signs 01/11/18 01/11/18 01/12/18 09:43 20:00 02:36 Temperature 97.8 F Pulse Rate 75 Respiratory 18 18 24 Rate Blood Pressure 144/60 (mmHg) O2 Sat by Pulse 99 Oximetry 01/12/18 01/12/18 01/12/18 02:37 04:23 04:24 Temperature Pulse Rate Respiratory 24 16 16 Rate Blood Pressure (mmHg) O2 Sat by Pulse Oximetry - Intake and Output Intake and Output: Intake & Output 01/09/18 01/10/18 01/11/18 01/12/18 11:59 11:59 11:59 11:59 Intake Total 830 2280 2480 1446 Output Total 4924 6831 265 3552 Balance -1745 -995 -170 -1668 Weight 214 lb Intake: IV Fluids 110 20 ABX - LEVOFLOXACIN 20 IVPB 80 ABX - LEVOFLOXACIN 80 Heparin 390 301 Oral 720 2180 2090 1145 Output: Urine 200 925 Burgess 2375 2350 2650 3550 Other: Estimated Void Medium # Bowel Movements 0 0 2 1 Estimated Stool Amount Small Medium Small # Voids 1 ADLs: Meal Record Start: 01/08/18 16: 04 Freq: DAILY@0900,1400,1800 Status: Active Protocol: Created 01/08/18 16:04 System (Rec: 01/08/18 16:04 System TELE-M12) Document 01/08/18 18:00 [id number] (Rec: 01/08/18 21:37 [id number] TELE-C10) Document 01/09/18 09:00 [id number] (Rec: 01/09/18 10:14 [id number] TELE-C03) Document 01/09/18 14:00 [id number] (Rec: 01/09/18 14:05 [id number] TELE-M02) Document 01/09/18 17:40 [id number] (Rec: 01/09/18 17:40 [id number] TELE-C08) Document 01/10/18 09:00 [id number] (Rec: 01/10/18 10:33 RJU1189 TELE-C01) Document 01/10/18 14:00 [id number] (Rec: 01/10/18 14:14 [id number] TELE-C01) Document 01/10/18 17:24 [id number] (Rec: 01/10/18 17:25 [id number] TELE-C08) Document 01/11/18 09:00 [id number] (Rec: 01/11/18 10:37 [id number] TELE-C11) Document 01/11/18 14:00 [id number] (Rec: 01/11/18 14:38 [id number] TELE-C03) Document 01/11/18 17:39 [id number] (Rec: 01/11/18 17:39 [id number] TELE-C08) Intake and Output Start: 01/08/18 10: 55 Freq: Status: Active Protocol: Created 01/08/18 10:55 System (Rec: 01/08/18 10:55 System ED-C24) Intake and Output Start: 01/08/18 16: 04 Freq: DAILY@0600,1400,2200 Status: Active Protocol: Created 01/08/18 16:04 System (Rec: 01/08/18 16:04 System TELE-M12) Document 01/08/18 22:00 [id number] (Rec: 01/08/18 23:33 [id number] TELE-C10) Document 01/09/18 00:46 [id number] (Rec: 01/09/18 00:46 [id number] TELE-C08) Document 01/09/18 06:00 PFU6680 (Rec: 01/09/18 06:28 [id number] TELE-C01) Document 01/09/18 14:00 ASG8626 (Rec: 01/09/18 14:05 [id number] TELE-M02) Document 01/09/18 15:05 [id number] (Rec: 01/09/18 15:05 APL8927 TELE-C07) Document 01/09/18 22:00 [id number] (Rec: 01/09/18 22:42 [id number] TELE-C11) Document 01/10/18 03:49 [id number] (Rec: 01/10/18 03:49 [id number] TELE-C08) Document 01/10/18 06:00 [id number] (Rec: 01/10/18 06:52 [id number] TELE-C11) Document 01/10/18 14:00 RWH5430 (Rec: 01/10/18 14:14 [id number] TELE-C01) Document 01/10/18 21:47 [id number] (Rec: 01/10/18 21:48 [id number] TELE-C11) Document 01/10/18 22:00 [id number] (Rec: 01/10/18 22:01 AQD4219 TELE-C11) Document 01/10/18 22:02 [id number] (Rec: 01/10/18 22:02 FZP9181 TELE-C09) Document 01/11/18 06:00 [id number] (Rec: 01/11/18 06:13 JAG5423 TELE-C35) Document 01/11/18 06:17 WVQ3177 (Rec: 01/11/18 06:18 FQM8179 TELE-C35) Document 01/11/18 14:00 [id number] (Rec: 01/11/18 14:38 BRN4591 TELE-C03) Document 01/11/18 21:41 [id number] (Rec: 01/11/18 21:43 [id number] TELE-C10) Document 01/12/18 05:37 [id number] (Rec: 01/12/18 05:40 [id number]) Document 01/12/18 06:23 [id number] (Rec: 01/12/18 06:23 [id number] TELE-C11) - Physical Exam General: No Cyanosis, Yes Anemia, No Jaundice, No Clubbing Skin: Normal: Rash Lungs and Chest: Yes: Chest Expansion Full, Chest Expansion Symetrica, Percussion Note Resonant, Vessicular Breath Sounds. No: Crackles, Wheezes Heart Rate and Rhythm: Irregular Additional Cardiovascular: Yes: Normal Heart Sounds. No: Heart Murmur, Pedal Edema Abdominal Exam: Yes: Soft, Bowel Sounds Present. No: Distention, Abdominal Tenderness - Extremities Cranial Nerves II-XII Intact: Yes Limbs: Abnormal Power - left arm remains weak - has movement of left hand,nil else - Neuro Orientation: A/O x3 Psychiatric: Normal Speech: Normal Results - Results Lab Results: Laboratory Results - last 24 hr 01/11/18 01/11/18 01/11/18 05:42 11:17 11:21 WBC RBC Hgb Hct MCV MCH MCHC RDW Plt Count MPV Neut % (Auto) Lymph % (Auto) [place] % (Auto) Eos % (Auto) Baso % (Auto) Absolute Neuts (auto) Absolute Lymphs (auto) Absolute Monos (auto) Absolute Eos (auto) Absolute Basos (auto) Absolute Nucleated RBC Nucleated RBC % APTT BUN Creatinine Est GFR ( Amer) Est GFR (Non-Af Amer) Glucose POC Glucose (mg/dL) 31 L* 316 H Blood Type O Positive Antibody Screen Negative 01/11/18 01/11/18 01/11/18 11:37 17:08 20:28 WBC RBC Hgb Hct MCV MCH MCHC RDW Plt Count MPV Neut % (Auto) Lymph % (Auto) [place] % (Auto) Eos % (Auto) Baso % (Auto) Absolute Neuts (auto) Absolute Lymphs (auto) Absolute Monos (auto) Absolute Eos (auto) Absolute Basos (auto) Absolute Nucleated RBC Nucleated RBC % APTT BUN Creatinine Est GFR ( Amer) Est GFR (Non-Af Amer) Glucose 291 H POC Glucose (mg/dL) 173 H 240 H Blood Type Antibody Screen 01/12/18 01/12/18 01/12/18 03:47 06:10 06:10 WBC 7.1 RBC 3.04 L Hgb 8.4 L Hct 25 L MCV 83 MCH 28 MCHC 34 RDW 16 H Plt Count 345 MPV 8.1 Neut % (Auto) 72.0 Lymph % (Auto) 16.3 L [place] % (Auto) 10.0 H Eos % (Auto) 1.4 Baso % (Auto) 0.3 Absolute Neuts (auto) 5.1 Absolute Lymphs (auto) 1.2 Absolute Monos (auto) 0.7 Absolute Eos (auto) 0.1 Absolute Basos (auto) 0 Absolute Nucleated RBC 0 Nucleated RBC % 0 APTT 49.7 H BUN 81 H Creatinine 3.59 H Est GFR ( Amer) 20.3 Est GFR (Non-Af Amer) 16.8 Glucose POC Glucose (mg/dL) Blood Type Antibody Screen 01/12/18 06:10 WBC RBC Hgb Hct MCV MCH MCHC RDW Plt Count MPV Neut % (Auto) Lymph % (Auto) [place] % (Auto) Eos % (Auto) Baso % (Auto) Absolute Neuts (auto) Absolute Lymphs (auto) Absolute Monos (auto) Absolute Eos (auto) Absolute Basos (auto) Absolute Nucleated RBC Nucleated RBC % APTT 48.9 H BUN Creatinine Est GFR ( Amer) Est GFR (Non-Af Amer) Glucose POC Glucose (mg/dL) Blood Type Antibody Screen Radiology Results: Clip from MRI showing vasogenic edema of the right fronto-parietal tumor Assessment - Problem List Assessment: Patient Problems Complex partial seizure (Acute) 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 (Acute) Stage 4 chronic kidney disease (Acute) UTI (urinary tract infection) (Acute) Afib (Chronic) Anemia (Chronic) Anticoagulation goal of INR 2 to 3 (Chronic) Chronic indwelling Burgess catheter (Chronic) DVT prophylaxis (Chronic) Diabetes mellitus with insulin therapy (Chronic) History of osteomyelitis (Chronic) History of prostate cancer (Chronic) Hyperlipidemia (Chronic) Hypertension (Chronic) Lumbar spinal stenosis (Chronic) Nephrolithiasis (Chronic) Paroxysmal atrial fibrillation (Chronic) Restless legs (Chronic) S/P laminectomy (Chronic) Status post total hip replacement, right (Chronic) Type 2 diabetes mellitus (Chronic) Plan: Complex partial seizure (Acute)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 I have read the following meta-analysis on the use of dexamethasone in patients with metastatic disease on patients with cerebral edema caused by metastases. It supports a trial for this patient. 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 Prostate cancer has a predilection for the extradural space. I will start him on dexamethasone 4 mg qid. J Neurooncol. 2009;96(1):103-14. doi: 10.1007/a39182-041-2898-7. Ep2008Jun 04. The role of steroids in the management of brain metastases: a systematic review and evidence-based clinical practice guideline. Kenisha TC1, Keara M, Madi PD, Guillermina M, Romario DW, Jose AL, Yanick SH , Marine CS, Gildardo LE, Manuel D, Bruce ME, Donnie JS, Lona MP, Rebeca T, Gracy RamirezJ, Viktoria NA, Salome RA, Jesus SN. Author information Abstract QUESTION: Do steroids improve neurologic symptoms in patients with metastatic brain tumors compared to no treatment? If steroids are given, what dose should be used ? Comparisons include: (1) steroid therapy versus none. (2) comparison of different doses of steroid therapy. TARGET POPULATION: These recommendations apply to adults diagnosed with brain metastases. RECOMMENDATIONS: Steroid therapy versus no steroid therapy Asymptomatic brain metastases patients without mass effect Insufficient evidence exists to make a treatment recommendation for this clinical scenario. Brain metastases patients with mild symptoms related to mass effect Level 3 Corticosteroids are recommended to provide temporary symptomatic relief of symptoms related to increased intracranial pressure and edema secondary to brain metastases. It is recommended for patients who are symptomatic from metastatic disease to the brain that a starting dose of 4-8 mg/day of dexamethasone be considered. Brain metastases patients with moderate to severe symptoms related to mass effect Level 3 Corticosteroids are recommended to provide temporary symptomatic relief of symptoms related to increased intracranial pressure and edema secondary to brain metastases. If patients exhibit severe symptoms consistent with increased intracranial pressure, it is recommended that higher doses such as 16 mg/day or more be considered. Choice of Steroid Level 3 If corticosteroids are given, dexamethasone is the best drug choice given the available evidence. Duration of Corticosteroid Administration Level 3 Corticosteroids, if given, should be tapered slowly over a 2 week time period, or longer in symptomatic patients, based upon an individualized treatment regimen and a full understanding of the long-term sequelae of corticosteroid therapy. Given the very limited number of studies (two) which met the eligibility criteria for the systematic review, these are the only recommendations that can be offered based on this methodology. Stage 4 chronic kidney disease (Acute) ongoing UTI (urinary tract infection) (Acute) We are treating this with levofloxacin Afib (Chronic) He is on IV heparin Anemia (Chronic) No change - he is compensated Chronic indwelling Burgess catheter (Chronic) Type 2 diabetes mellitus (Chronic)Diabetes mellitus with insulin therapy ( Chronic) I will increase lantus insulin in anticipation of steroid effect History of osteomyelitis (Chronic) inactive History of prostate cancer (Chronic) see above for possible metastatic source I discussed the above with the patient in person and with Talita Montilla. They agree with the management plan - I suggested he may regain some function of his left arm with dexamethasone, but risked poorly controlled T2D
[2018-01-12] MEDS: Insulin GLARGINE(*) 1 UNITS UNIT SUBCUT SCH (07:41)
[2018-01-12] MEDS: Chlorthalidone TAB* 50 MG PO SCH (07:41)
[2018-01-12] MEDS: Insulin LISPRO* 1 UNITS UNIT SUBCUT SCH ×4 (07:41→22:26)
[2018-01-12] MEDS: Ferrous Sulfate TAB* 325 MG PO SCH (07:42)
[2018-01-12] MEDS: Docusate CAP* 100 MG PO SCH ×2 (07:42→22:26)
[2018-01-12] MEDS: levETIRAcetam TAB* 500 MG PO SCH ×2 (07:42→22:25)
[2018-01-12] MEDS: Ascorbic Acid TAB* 500 MG PO SCH (07:42)
[2018-01-12] MEDS: Heparin VIAL(*) 5000 UNITS/ML VIAL (FIVE THOUSAND) IV PRN (08:35)
[2018-01-12] MEDS: Dexamethasone TAB* 4 MG PO SCH ×4 (08:35→22:25)
[2018-01-12] MEDS: Levofloxacin 250 MG IVPREMX(*) 250 MG/50 ML BAG IVPB SCH (08:52)
[2018-01-12] MEDS ORDERED: Insulin GLARGINE(*) 1 UNITS UNIT SUBCUT ONE (09:00)
[2018-01-12] MEDS: traZODone TAB* 50 MG TAB PO SCH (22:25)
[2018-01-12] MEDS: Omeprazole CAP* 20 MG PO SCH (22:25)
[2018-01-12] MEDS: Atorvastatin* 40 MG TAB PO SCH (22:25)
[2018-01-12] MEDS: Diltiazem CD CAP* 240 MG PO SCH (22:26)
[2018-01-13 05:26] LABS: ABS Basophils 0 10^3/ul (0-0.2); ABS Eosinophils 0 10^3/ul (0-0.6); ABS Lymphocytes 0.5 10^3/ul (1.0-4.8); ABS Monocytes 0.2 10^3/ul (0-0.8); ABS Neutrophils 5.1 10^3/ul (1.5-7.7); ABS Nucleated RBC 0 10^3/ul; Eosinophil % 0 % (0-6); Hematocrit 25 % (42-52); Hemoglobin 8.2 g/dl (14.0-18.0); Lymphocyte % 8.1 % (25-47); Mean Corpuscular HGB Conc 33 g/dl (31-36); Mean Corpuscular Hemoglobin 28 pg (27-31); Mean Corpuscular Volume 83 fL (80-94); Mean Platelet Volume 8.2 um3 (7.4-10.4); Nucleated Red Blood Cells % 0; Platelet Count 331 10^3/ul (150-450); Red Blood Count 2.96 10^6/ul (4.00-5.40); Red Cell Distribution Width 16 % (10.5-15); White Blood Count 5.8 10^3/ul (3.5-10.8)
[2018-01-13 05:40] LABS: EGFR Non-African American 17.1 (>60)
[2018-01-13] MEDS: Heparin VIAL(*) 5000 UNITS/ML VIAL (FIVE THOUSAND) IV PRN (07:16)
[2018-01-13] MEDS ORDERED: Insulin GLARGINE(*) 1 UNITS UNIT SUBCUT SCH ×2 (08:00→10:00)
[2018-01-13] MEDS: Insulin LISPRO* 1 UNITS UNIT SUBCUT SCH ×6 (09:03→21:01)
[2018-01-13] MEDS: Dexamethasone TAB* 4 MG PO SCH ×4 (09:04→21:08)
[2018-01-13] MEDS: Ascorbic Acid TAB* 500 MG PO SCH (09:04)
[2018-01-13] MEDS: Ferrous Sulfate TAB* 325 MG PO SCH (09:04)
[2018-01-13] MEDS: Docusate CAP* 100 MG PO SCH ×2 (09:04→21:07)
[2018-01-13] MEDS: Chlorthalidone TAB* 50 MG PO SCH (09:04)
[2018-01-13] MEDS: levETIRAcetam TAB* 500 MG PO SCH ×2 (09:04→21:07)
--- NOTE | 2018-01-13 09:51 | PN ---
Subjective - Subjective Reason for Note: Progress Note History: He would like to be at home - he misses his dogs. He has had higher glucose levels with the dexamethasone. Thus far, he has not regained any function in his left arm. He denies any headache, vision change, nausea. He has no cough, chest pressure, shortness of breath. His digestion is normal. 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 Diabetes mellitus with insulin therapy (Chronic) E11.9, Z79.4 - Hold oral DM meds - FSBG ACHS with Lispro SS - Lantus increased last night but sugar remains high, will increase to 20 units tonight History of osteomyelitis (Chronic) Z87.39 History of prostate cancer (Chronic) Z85.46 Hyperlipidemia (Chronic) E78.5 - statin Lumbar spinal stenosis (Chronic) M48.06 Nephrolithiasis (Chronic) N20.0 Paroxysmal atrial fibrillation (Chronic) I48.0 - Rate and rhythm regular - Continue cardizem and coumadin Restless legs (Chronic) S/P laminectomy (Chronic) Z98.890 Status post total hip replacement, right (Chronic) Z96.641 - POD2 - POC as per ortho service - Continue DVT prophy with coumadin bridge - Pain control, bowel regimen, OOB with PT/OT Type 2 diabetes mellitus (Chronic) Current Medications: Current Medications Acetaminophen (Tylenol Tab*) 650 mg PO Q4H PRN PRN Reason: FEVER/PAIN Al Hydrox/Mg Hydrox/Simethicone (Maalox Plus*) 30 ml PO Q6H PRN PRN Reason: INDIGESTION Albuterol (Ventolin 2.5 Mg/3 Ml Neb.Gertrude*) 2.5 mg INH RT.[id number] AWAKE PRN PRN Reason: sob/wheezing Ascorbic Acid (Vitamin C Tab*) 500 mg PO DAILY [facility] Last Admin: 01/13/18 09:04 Dose: 500 mg Atorvastatin Calcium (Lipitor*) 40 mg PO BEDTIME [facility] Last Admin: 01/12/18 22:25 Dose: 40 mg Chlorthalidone (Hygroton Tab*) 25 mg PO QAM [facility] Last Admin: 01/13/18 09:04 Dose: 25 mg Dexamethasone (Decadron Tab*) 4 mg PO QID [facility] Last Admin: 01/13/18 09:04 Dose: 4 mg Dextrose (D50w Syringe 50 Ml*) 12.5 gm IV PUSH .FOR FS < 60 - SS PRN PRN Reason: FS < 60 Diltiazem HCl (Cardizem Cd Cap*) 240 mg PO BEDTIME [facility] Last Admin: 01/12/18 22:26 Dose: 240 mg Docusate Sodium (Colace Cap*) 100 mg PO BID [facility] Last Admin: 01/13/18 09:04 Dose: 100 mg Famotidine (Pepcid Iv*) 20 mg IV ONCE ONE Stop: 01/15/18 06:01 Ferrous Sulfate (Ferrous Sulfate Tab*) 325 mg PO DAILY [facility] Last Admin: 01/13/18 09:04 Dose: 325 mg Heparin Sodium (Porcine) (Heparin Vial(*)) 0 units IV .PER PROTOCOL PRN PRN Reason: HEPARIN BOLUSES Last Admin: 01/13/18 07:16 Dose: 3,400 units Levofloxacin/Dextrose (Levaquin 250 Mg Ivpremx(*)) 250 mg in 50 mls @ 50 mls/ hr IVPB Q48H [facility] Last Admin: 01/12/18 08:52 Dose: 50 mls/hr Heparin Sodium/Dextrose (Heparin Drip 25,000 Units(*)) 25,000 units in 500 mls @ 0 mls/hr IV PER RATE [facility]; Protocol Last Admin: 01/12/18 22:58 Dose: 23 mls/hr Lactated Ringer's (Lactated Ringers 1000 Ml Bag*) 1,000 mls @ 125 mls/hr IV PER RATE [facility] Insulin Glargine (Lantus(*)) 20 units SUBCUT Q24H [facility] Last Admin: 01/13/18 09:03 Dose: 20 units Insulin Human Lispro (Humalog*) 0 units SUBCUT ACHS [facility]; Protocol Last Admin: 01/13/18 09:03 Dose: 6 unit Levetiracetam (Keppra Tab*) 1,000 mg PO BID [facility] Last Admin: 01/13/18 09:04 Dose: 1,000 mg Lorazepam (Ativan Inj*) 1 mg IV PUSH Q6H PRN PRN Reason: ANXIETY Magnesium Hydroxide (Milk Of Magnesia Liq*) 30 ml PO Q4H PRN PRN Reason: CONSTIPATION Melatonin (Melatonin) 3 mg PO BEDTIME PRN; Protocol PRN Reason: Sleep Last Admin: 01/11/18 22:01 Dose: 3 mg Morphine Sulfate (Morphine Vial*) 2 mg IV Q4H PRN PRN Reason: PAIN Last Admin: 01/12/18 02:36 Dose: 2 mg Omeprazole (Prilosec Cap*) 20 mg PO BEDTIME [facility] Last Admin: 01/12/18 22:25 Dose: 20 mg Ondansetron HCl (Zofran Inj*) 4 mg IV Q4H PRN PRN Reason: NAUSEA/VOMITING Oxycodone/Acetaminophen (Percocet 5/325 Tab*) 2 tab PO Q6H PRN PRN Reason: Pain Pharmacy Profile Note (Scopolamine Patch Remove*) 1 note PATCH OFF ONCE ONE Stop: 01/18/18 09:01 Scopolamine (Transderm-Scop 1.5 Mg Patch*) 1 patch TRANSDERM ONCE ONE Stop: 01/15/18 06:01 Tramadol HCl (Ultram*) 50 mg PO Q6H PRN PRN Reason: PAIN Last Admin: 01/12/18 02:37 Dose: 50 mg Trazodone HCl (Desyrel Tab*) 50 mg PO BEDTIME [facility] Last Admin: 01/12/18 22:25 Dose: 50 mg Home Medications: Home Medications Medication Instructions Recorded Confirmed Type Ascorbic Acid TAB* [Vitamin C 500 mg PO DAILY 12/12/17 01/08/18 History TAB*] Atorvastatin* [Lipitor*] 40 mg PO BEDTIME 12/12/17 01/08/18 History Chlorthalidone TAB* [Hygroton TAB*] 25 mg PO QAM 12/12/17 01/08/18 History Enoxaparin(*) [Lovenox(*)] 100 mg SUBCUT Q12HR #16 syringe 12/12/17 01/08/18 Rx Ferrous Sulfate TAB* 325 mg PO DAILY 12/12/17 01/08/18 History Insulin NPH Human Isophane 14 unit SUBCUT BEDTIME 12/12/17 01/08/18 History [Humulin N Kwikpen] Multivit-Mins/Iron/Folic/Lycop 1 tab PO DAILY 12/12/17 01/08/18 History [Centrum Ultra Mens] Omeprazole CAP* [Prilosec CAP* 20 20 mg PO BEDTIME 12/12/17 01/08/18 History MG] Warfarin TAB(*) [Coumadin TAB(*)] 3 mg PO EVERY OTHER DAY 12/12/17 01/08/18 History Warfarin TAB(*) [Coumadin TAB(*)] 4 mg PO EVERY OTHER DAY 12/12/17 01/08/18 History dilTIAZem HCl [Cartia Xt] 240 mg PO BEDTIME 12/12/17 01/08/18 History glipiZIDE TAB* [Glucotrol TAB*] 10 mg PO BID 12/12/17 01/08/18 History traMADol TAB* [Ultram*] 50 mg PO Q4H PRN MDD 6 tablets 12/12/17 01/08/18 History traZODone TAB* [Desyrel TAB*] 50 mg PO BEDTIME 12/12/17 01/08/18 History Allergies: Allergies Allergy/AdvReac Type Severity Reaction Status Date / Time codeine Allergy tongue Verified 01/08/18 10:55 swells hydrochlorothiazide Allergy increased Verified 01/08/18 10:55 [From Zestoretic] bun/ cr indapamide Allergy hypotension Verified 01/08/18 10:55 lisinopril Allergy Rash Verified 01/08/18 10:55 Objective - Vital Signs Vital Signs: Vital Signs 01/12/18 01/12/18 01/12/18 09:47 11:30 15:14 Temperature 97.9 F 97.5 F Pulse Rate 71 65 Respiratory 16 16 17 Rate Blood Pressure 130/61 131/65 (mmHg) O2 Sat by Pulse 100 99 Oximetry 01/12/18 01/12/18 01/12/18 19:34 20:00 23:42 Temperature 98.3 F 98.1 F Pulse Rate 73 72 Respiratory 16 18 20 Rate Blood Pressure 139/64 149/69 (mmHg) O2 Sat by Pulse 98 99 Oximetry 01/13/18 04:21 Temperature 98.0 F Pulse Rate 65 Respiratory 20 Rate Blood Pressure 139/68 (mmHg) O2 Sat by Pulse 100 Oximetry - Intake and Output Intake and Output: Intake & Output 01/10/18 01/11/18 01/12/18 01/13/18 11:59 11:59 11:59 11:59 Intake Total 2280 2480 2600 1565 Output Total 3275 2650 3550 2475 Balance -995 -170 -950 -910 Intake: IV Fluids 20 ABX - LEVOFLOXACIN 20 IVPB 80 ABX - LEVOFLOXACIN 80 Heparin 390 615 565 Oral 2180 2090 1985 1000 Output: Urine 925 Burgess 2350 2650 3550 2475 Other: Estimated Void Medium # Bowel Movements 0 2 1 1 Estimated Stool Amount Small Medium Small Medium # Voids 1 ADLs: Meal Record Start: 01/08/18 16: 04 Freq: DAILY@0900,1400,1800 Status: Active Protocol: Created 01/08/18 16:04 System (Rec: 01/08/18 16:04 System TELE-M12) Document 01/08/18 18:00 [id number] (Rec: 01/08/18 21:37 [id number] TELE-C10) Document 01/09/18 09:00 EMX0243 (Rec: 01/09/18 10:14 MPK1828 TELE-C03) Document 01/09/18 14:00 UNW6917 (Rec: 01/09/18 14:05 [id number] TELE-M02) Document 01/09/18 17:40 FDZ2524 (Rec: 01/09/18 17:40 DES2803 TELE-C08) Document 01/10/18 09:00 [id number] (Rec: 01/10/18 10:33 XEZ9371 TELE-C01) Document 01/10/18 14:00 OIP0967 (Rec: 01/10/18 14:14 QXU9425 TELE-C01) Document 01/10/18 17:24 OKU0576 (Rec: 01/10/18 17:25 MLE0419 TELE-C08) Document 01/11/18 09:00 WXB3671 (Rec: 01/11/18 10:37 BSV9533 TELE-C11) Document 01/11/18 14:00 XOV1564 (Rec: 01/11/18 14:38 WWE6923 TELE-C03) Document 01/11/18 17:39 QYF6007 (Rec: 01/11/18 17:39 LEP7369 TELE-C08) Document 01/12/18 09:00 PLE1106 (Rec: 01/12/18 09:57 OEB1334 TELE-C03) Document 01/12/18 14:00 YYT0362 (Rec: 01/12/18 14:33 GAZ2379 TELE-C03) Document 01/12/18 17:54 GWX3838 (Rec: 01/12/18 17:55 MTW8089 TELE-C10) Intake and Output Start: 01/08/18 10: 55 Freq: Status: Active Protocol: Created 01/08/18 10:55 System (Rec: 01/08/18 10:55 System ED-C24) Intake and Output Start: 01/08/18 16: 04 Freq: DAILY@0600,1400,2200 Status: Active Protocol: Created 01/08/18 16:04 System (Rec: 01/08/18 16:04 System TELE-M12) Document 01/08/18 22:00 [id number] (Rec: 01/08/18 23:33 PHR3939 TELE-C10) Document 01/09/18 00:46 LJU3261 (Rec: 01/09/18 00:46 RBF6887 TELE-C08) Document 01/09/18 06:00 KLG8649 (Rec: 01/09/18 06:28 OND8106 TELE-C01) Document 01/09/18 14:00 LTH9467 (Rec: 01/09/18 14:05 VJG0151 TELE-M02) Document 01/09/18 15:05 MQK6622 (Rec: 01/09/18 15:05 NWF1728 TELE-C07) Document 01/09/18 22:00 JAL2682 (Rec: 01/09/18 22:42 RZX9429 TELE-C11) Document 01/10/18 03:49 QNK1425 (Rec: 01/10/18 03:49 LAR8330 TELE-C08) Document 01/10/18 06:00 UHQ9134 (Rec: 01/10/18 06:52 ZAR3506 TELE-C11) Document 01/10/18 14:00 JXE7657 (Rec: 01/10/18 14:14 SJJ4962 TELE-C01) Document 01/10/18 21:47 BTI4265 (Rec: 01/10/18 21:48 OMM4348 TELE-C11) Document 01/10/18 22:00 TNK1986 (Rec: 01/10/18 22:01 IEV6585 TELE-C11) Document 01/10/18 22:02 ACB1805 (Rec: 01/10/18 22:02 UNV4769 TELE-C09) Document 01/11/18 06:00 PMX6002 (Rec: 01/11/18 06:13 CVG2446 TELE-C35) Document 01/11/18 06:17 QLA8101 (Rec: 01/11/18 06:18 XBE6282 TELE-C35) Document 01/11/18 14:00 ZDO4021 (Rec: 01/11/18 14:38 BUH2373 TELE-C03) Document 01/11/18 21:41 CEE1466 (Rec: 01/11/18 21:43 QIU5446 TELE-C10) Document 01/12/18 05:37 QAC6557 (Rec: 01/12/18 05:40 IWM1208 [id number]) Document 01/12/18 06:23 UMA2777 (Rec: 01/12/18 06:23 WNE8335 TELE-C11) Document 01/12/18 09:57 HGJ5256 (Rec: 01/12/18 09:57 ZXG9269 TELE-C03) Document 01/12/18 14:00 NLB5697 (Rec: 01/12/18 14:33 ZLP0222 TELE-C03) Document 01/12/18 22:00 WEL3447 (Rec: 01/12/18 22:17 [id number] TELE-C03) Document 01/13/18 06:00 (Rec: 01/13/18 06:59 TRIX08) - Physical Exam General: No Cyanosis, Yes Anemia, No Jaundice, No Clubbing Lungs and Chest: Yes: Chest Expansion Full, Chest Expansion Symetrica, Percussion Note Resonant, Vessicular Breath Sounds. No: Crackles, Wheezes Heart Rate and Rhythm: Regular Additional Cardiovascular: Yes: Normal Heart Sounds, Heart Murmur. No: Pedal Edema Abdominal Exam: Yes: Soft, Bowel Sounds Present. No: Distention, Abdominal Tenderness Results - Results Lab Results: Laboratory Results - last 24 hr 01/12/18 01/12/18 01/12/18 11:27 14:31 16:44 WBC RBC Hgb Hct MCV MCH MCHC RDW Plt Count MPV Neut % (Auto) Lymph % (Auto) [place] % (Auto) Eos % (Auto) Baso % (Auto) Absolute Neuts (auto) Absolute Lymphs (auto) Absolute Monos (auto) Absolute Eos (auto) Absolute Basos (auto) Absolute Nucleated RBC Nucleated RBC % APTT 82.0 H Sodium Potassium Chloride Carbon Dioxide Anion Gap BUN Creatinine Est GFR ( Amer) Est GFR (Non-Af Amer) BUN/Creatinine Ratio Glucose POC Glucose (mg/dL) 282 H 248 H Calcium C-Reactive Protein 01/12/18 01/12/18 01/13/18 20:15 21:20 05:12 WBC 5.8 RBC 2.96 L Hgb 8.2 L Hct 25 L MCV 83 MCH 28 MCHC 33 RDW 16 H Plt Count 331 MPV 8.2 Neut % (Auto) 88.3 H Lymph % (Auto) 8.1 L [place] % (Auto) 3.4 Eos % (Auto) 0 Baso % (Auto) 0.2 Absolute Neuts (auto) 5.1 Absolute Lymphs (auto) 0.5 L Absolute Monos (auto) 0.2 Absolute Eos (auto) 0 Absolute Basos (auto) 0 Absolute Nucleated RBC 0 Nucleated RBC % 0 APTT 75.4 H Sodium Potassium Chloride Carbon Dioxide Anion Gap BUN Creatinine Est GFR ( Amer) Est GFR (Non-Af Amer) BUN/Creatinine Ratio Glucose POC Glucose (mg/dL) 365 H Calcium C-Reactive Protein 01/13/18 01/13/18 01/13/18 05:12 05:12 07:27 WBC RBC Hgb Hct MCV MCH MCHC RDW Plt Count MPV Neut % (Auto) Lymph % (Auto) [place] % (Auto) Eos % (Auto) Baso % (Auto) Absolute Neuts (auto) Absolute Lymphs (auto) Absolute Monos (auto) Absolute Eos (auto) Absolute Basos (auto) Absolute Nucleated RBC Nucleated RBC % APTT 45.2 H Sodium 134 L Potassium 5.3 H Chloride 108 Carbon Dioxide 13 L* Anion Gap 13 H BUN 89 H Creatinine 3.52 H Est GFR ( Amer) 20.7 Est GFR (Non-Af Amer) 17.1 BUN/Creatinine Ratio 25.3 H Glucose 253 H POC Glucose (mg/dL) 295 H Calcium 8.8 C-Reactive Protein 64.62 H Other Results/Reports: MARKIE MONTILLA 1945 [id number] MARKIE MONTILLA [id number] Page: 2 of 2 [facility] [address] [address] Ph.#: [phone] Fax#: [phone] CLIA # [id number] Derian Gandhi M.D. Director of Laboratories [facility] PATHOLOGY REPORT MARKIE MONTILLA [id number] Page: 1 of 2 Patient Name: MARKIE MONTILLA Pathology Number: [id number] Med.Rec. #: [id number] Collection Date: 01/09/18 Acct. Number#: [id number] Received Date: 01/09/18 : 1945 Location: [address] [place] [address] Gender: M Submitting Physician: Loly Bronson MD Other Physician: Derian Gandhi MD Other Physician: FINAL DIAGNOSIS Scalp, right posterior, fine needle aspiration by palpation: -- Metastatic prostate adenocarcinoma; see comment. Preliminary Signed by and Reported on: GISELLE Pulliam(ASCP) 01/10/18 1212 Electronically Signed by and Reported on: Sofia London MD 01/12/18 1125 COMMENT: A cell block was prepared in the evaluation of this specimen. Smears and cell block reveal similar findings. Slides show clustered spindled and epithelioid cells with abortive gland formation. Immunohistochemical stains, with appropriately reacting controls, were performed with the following results: KATHIE focally positive S100 negative Vimentin negative Ki67 proliferation index of approximately 20%, quantitated manually Pankeratin strongly and diffusely positive CA19-9 negative CDX 2 negative RCC negative TTF-1 focally moderately positive CK20 weak nonspecific staining CK7 weak nonspecific staining PSA focally positive P63 negative Assessment - Problem List Assessment: Patient Problems Complex partial seizure (Acute) 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) Stage 4 chronic kidney disease (Acute) UTI (urinary tract infection) (Acute) Afib (Chronic) Anemia (Chronic) Chronic indwelling Burgess catheter (Chronic) DVT prophylaxis (Chronic) Diabetes mellitus with insulin therapy (Chronic) History of osteomyelitis (Chronic) History of prostate cancer (Chronic) Hyperlipidemia (Chronic) Lumbar spinal stenosis (Chronic) Nephrolithiasis (Chronic) Paroxysmal atrial fibrillation (Chronic) Restless legs (Chronic) S/P laminectomy (Chronic) Status post total hip replacement, right (Chronic) Type 2 diabetes mellitus (Chronic) Plan: 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 (Acute) History of prostate cancer (Chronic) 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 We are managing the brain metastasis with dexamethasone and neurosurgery on Monday. I will ask oncology to meet with him. He will likely require anti-androgen therapy. I note the bone scan shows no other metastases in his skeleton. I haven't checked any further imaging of chest/abdo/pelvis - this may be required. Stage 4 chronic kidney disease (Acute) This remains a major comorbidity. We are watching his electrolytes carefully during this process. His potassium has been elevated for the past 3 days. Today he is mildly acidotic and has slight hyponatremia. I will start him on some kayexelate. I will weigh him daily. He is in negative water balance UTI (urinary tract infection) (Acute) We are treating this at present with levofloxacin 250 mg qod. Complex partial seizure (Acute) no further activity Type 2 diabetes mellitus (Chronic) The dexamethasone is pushing up his glucose as anticipated. I will double his basal insulin today. Afib (Chronic) I will discontinue telemetry Anemia (Chronic) ongoing Chronic indwelling Burgess catheter (Chronic) functioning DVT prophylaxis (Chronic) Diabetes mellitus with insulin therapy (Chronic) History of osteomyelitis (Chronic) I discussed the diagnosis of metastatic prostate cancer with Markie and Talita Montilla. I told them that there is hormone treatment for this we can start after his neurosurgery. I also discussed his kidney failure and the need for kayexelate. I discussed the dexamethasone and his hyperglycemia. They understand that there are multiple comorbidities that affect his prognosis.
[2018-01-13] MEDS ORDERED: Dextrose 50% Syringe 50 ML* 25 GM/50 ML SYRINGE IV PUSH PRN (10:00)
[2018-01-13] MEDS: Sodium Polystyrene ORAL.SOL* 15 GM/60 ML BTL PO SCH ×2 (11:40→21:09)
[2018-01-13] MEDS: Insulin GLARGINE(*) 1 UNITS UNIT SUBCUT SCH (21:00)
[2018-01-13] MEDS: Atorvastatin* 40 MG TAB PO SCH (21:08)
[2018-01-13] MEDS: Omeprazole CAP* 20 MG PO SCH (21:08)
[2018-01-13] MEDS: traZODone TAB* 50 MG TAB PO SCH (21:08)
[2018-01-13] MEDS: Diltiazem CD CAP* 240 MG PO SCH (21:08)
[2018-01-13] MEDS: Heparin DRIP 25,000 UNITS(*) 25,000 UNITS/500 ML BAG IV SCH (21:53)
[2018-01-14 04:43] LABS: ABS Basophils 0 10^3/ul (0-0.2); ABS Eosinophils 0 10^3/ul (0-0.6); ABS Lymphocytes 0.5 10^3/ul (1.0-4.8); ABS Monocytes 0.3 10^3/ul (0-0.8); ABS Neutrophils 9.9 10^3/ul (1.5-7.7); ABS Nucleated RBC 0 10^3/ul; Eosinophil % 0 % (0-6); Hematocrit 25 % (42-52); Lymphocyte % 4.6 % (25-47); Mean Corpuscular HGB Conc 33 g/dl (31-36); Mean Corpuscular Hemoglobin 27 pg (27-31); Mean Corpuscular Volume 83 fL (80-94); Mean Platelet Volume 8.3 um3 (7.4-10.4); Nucleated Red Blood Cells % 0; Platelet Count 342 10^3/ul (150-450); Red Blood Count 2.94 10^6/ul (4.00-5.40); Red Cell Distribution Width 16 % (10.5-15); White Blood Count 10.7 10^3/ul (3.5-10.8)
[2018-01-14 05:00] LABS: EGFR Non-African American 17.9 (>60)
[2018-01-14] MEDS: Insulin LISPRO* 1 UNITS UNIT SUBCUT SCH ×5 (08:41→17:23)
[2018-01-14] MEDS: Insulin GLARGINE(*) 1 UNITS UNIT SUBCUT SCH (08:41)
[2018-01-14] MEDS: Dexamethasone TAB* 4 MG PO SCH ×4 (08:42→20:48)
[2018-01-14] MEDS: levETIRAcetam TAB* 500 MG PO SCH ×2 (08:42→20:48)
[2018-01-14] MEDS: Chlorthalidone TAB* 50 MG PO SCH (08:42)
[2018-01-14] MEDS: Ferrous Sulfate TAB* 325 MG PO SCH (08:42)
[2018-01-14] MEDS: Docusate CAP* 100 MG PO SCH ×2 (08:42→20:48)
[2018-01-14] MEDS: Levofloxacin 250 MG IVPREMX(*) 250 MG/50 ML BAG IVPB SCH (08:43)
[2018-01-14] MEDS: Ascorbic Acid TAB* 500 MG PO SCH (08:43)
[2018-01-14] MEDS: Sodium Polystyrene ORAL.SOL* 15 GM/60 ML BTL PO SCH ×2 (10:25→22:25)
[2018-01-14] MEDS ORDERED: Insulin LISPRO* 1 UNITS UNIT SUBCUT SCH (16:30)
[2018-01-14] MEDS: Heparin DRIP 25,000 UNITS(*) 25,000 UNITS/500 ML BAG IV SCH (18:55)
[2018-01-14] MEDS: traZODone TAB* 50 MG TAB PO SCH (20:48)
[2018-01-14] MEDS: Omeprazole CAP* 20 MG PO SCH (20:48)
[2018-01-14] MEDS: Diltiazem CD CAP* 240 MG PO SCH (20:48)
[2018-01-14] MEDS: Atorvastatin* 40 MG TAB PO SCH (20:48)
[2018-01-14] MEDS ORDERED: Insulin GLARGINE(*) 1 UNITS UNIT SUBCUT SCH (21:00)
--- NOTE | 2018-01-14 21:03 | PN ---
Progress Note - Progress Note Date of Service: 01/14/18 SOAP: Subjective: []Doing well Planned procedure discussed for am Path consistent with metastatic prostate CA Objective: []LUE weakness unchanged Otherwise neuro intact Assessment: []Stable Plan: []Proposed procedure of craniotomy with removal of metastatic tumor explained in detail. Risks of surgery including bleeding, infection, worsening weakness, numbness were all discussed PLAN-Right parietal craniotmy for tumor excision
[2018-01-15] MEDS: Insulin LISPRO* 1 UNITS UNIT SUBCUT SCH ×6 (00:19→19:59)
[2018-01-15 05:58] LABS: ABS Basophils 0 10^3/ul (0-0.2); ABS Eosinophils 0 10^3/ul (0-0.6); ABS Lymphocytes 0.5 10^3/ul (1.0-4.8); ABS Monocytes 0.5 10^3/ul (0-0.8); ABS Neutrophils 9.9 10^3/ul (1.5-7.7); ABS Nucleated RBC 0 10^3/ul; Eosinophil % 0 % (0-6); Hematocrit 26 % (42-52); Hemoglobin 8.7 g/dl (14.0-18.0); Mean Corpuscular HGB Conc 33 g/dl (31-36); Mean Corpuscular Hemoglobin 27 pg (27-31); Mean Corpuscular Volume 82 fL (80-94); Mean Platelet Volume 8.2 um3 (7.4-10.4); Nucleated Red Blood Cells % 0; Platelet Count 342 10^3/ul (150-450); Red Blood Count 3.16 10^6/ul (4.00-5.40); Red Cell Distribution Width 16 % (10.5-15)
[2018-01-15] MEDS ORDERED: Scopolamine 1.5 mg* PATCH TRANSDERM ONE (06:00)
[2018-01-15] MEDS ORDERED: Famotidine IV* 10 MG/ML 2 ML (20 mg) IV ONE (06:00)
[2018-01-15 06:06] LABS: INR 1.03 (0.77-1.02)
[2018-01-15] MEDS: Docusate CAP* 100 MG PO SCH ×2 (06:16→21:33)
[2018-01-15] MEDS: Sodium Polystyrene ORAL.SOL* 15 GM/60 ML BTL PO SCH ×2 (06:16→17:24)
[2018-01-15 06:18] LABS: EGFR Non-African American 18.3 (>60)
[2018-01-15] MEDS: levETIRAcetam TAB* 500 MG PO SCH ×2 (06:21→21:32)
[2018-01-15] MEDS: Ferrous Sulfate TAB* 325 MG PO SCH (06:22)
[2018-01-15] MEDS: Ascorbic Acid TAB* 500 MG PO SCH (06:22)
[2018-01-15] MEDS ORDERED: Thrombin 5,000 UNITS* 1 APPLIC KIT - topical use - TOPICAL ONE (06:58)
[2018-01-15] MEDS ORDERED: Lidocain 1% EPI 1:100,000 * 30 ML MDV ONE (06:58)
[2018-01-15] MEDS ORDERED: Mannitol 25% (12.5 GM) 50 ML* 12.5 GM/50 ML VIAL ONE (06:59)
[2018-01-15] MEDS ORDERED: Dexamethasone TAB* 4 MG PO SCH (07:00)
[2018-01-15] MEDS: Insulin GLARGINE(*) 1 UNITS UNIT SUBCUT SCH ×2 (07:14→21:32)
[2018-01-15] MEDS ORDERED: ceFAZolin 2 GM PREMIX (*) 2 GM/50 ML BAG IVPB ONE (07:28)
[2018-01-15] MEDS ORDERED: fentaNYL* 50 MCG/ML 2 ML VIAL (100 MCG VIAL) ONE ×3 (07:29→10:11)
[2018-01-15] MEDS ORDERED: Atracurium* 10 MG/ML 10 ML VIAL ONE (07:29)
[2018-01-15] MEDS ORDERED: Midazolam* 1 MG/ML 5 ML VIAL (5 MG) ONE (07:29)
[2018-01-15] MEDS ORDERED: DiMENhydriNATE IV* 50 MG/ML VIAL ONE (08:39)
[2018-01-15] MEDS ORDERED: Ondansetron INJ* 2 MG/ML VIAL ONE (08:39)
[2018-01-15] MEDS ORDERED: Dexamethasone IV* 4 MG/ML 1 ML (4 MG) ONE (08:39)
[2018-01-15] MEDS ORDERED: Lidocaine 2% PF * 5 ML VIAL ONE (08:39)
[2018-01-15] MEDS ORDERED: Propofol* 10 MG/ML 20 ML BTL IV PUSH ONE (08:39)
[2018-01-15] MEDS ORDERED: DiMENhydriNATE IV* 50 MG/ML VIAL IV PUSH PRN (09:34)
[2018-01-15] MEDS ORDERED: Acetaminophen IV 1GM/100ML * 1,000 MG/100 ML VIAL IVPB ONE (09:34)
[2018-01-15] MEDS ORDERED: Naloxone* 0.4 MG/ML 1 ML VIAL IV PRN (09:34)
[2018-01-15] MEDS ORDERED: HYDROmorphone INJ* 0.5 MG/0.5 ML SYRINGE IV PRN (09:34)
[2018-01-15] MEDS ORDERED: D5W 1/2 NS 1000 ML BAG* 1,000 ML IV SCH ×2 (10:32)
[2018-01-15] MEDS ORDERED: hydrALAZINE IV* 20 MG/ML VIAL ONE (11:52)
[2018-01-15] MEDS: hydrALAZINE IV* 20 MG/ML VIAL IV SLOW PU PRN ×3 (11:57→20:00)
[2018-01-15] MEDS: Labetalol IV* 5 MG/ML 20 ML VIAL IV PUSH PRN (13:14)
[2018-01-15] MEDS: Dexamethasone TAB* 4 MG PO SCH ×2 (17:25→21:33)
[2018-01-15] MEDS: Acetaminophen TAB* 325 MG PO PRN ×2 (17:56→21:33)
[2018-01-15] MEDS: Diltiazem CD CAP* 240 MG PO SCH (21:32)
[2018-01-15] MEDS: Atorvastatin* 40 MG TAB PO SCH (21:32)
[2018-01-15] MEDS: traZODone TAB* 50 MG TAB PO SCH (21:33)
[2018-01-15] MEDS: Omeprazole CAP* 20 MG PO SCH (21:33)
[2018-01-16] MEDS: Insulin LISPRO* 1 UNITS UNIT SUBCUT SCH ×5 (02:04→18:27)
[2018-01-16] MEDS: Labetalol IV* 5 MG/ML 20 ML VIAL IV PUSH PRN ×2 (04:26→09:57)
[2018-01-16 05:27] LABS: ABS Basophils 0 10^3/ul (0-0.2); ABS Eosinophils 0 10^3/ul (0-0.6); ABS Lymphocytes 0.5 10^3/ul (1.0-4.8); ABS Monocytes 0.8 10^3/ul (0-0.8); ABS Neutrophils 9.6 10^3/ul (1.5-7.7); ABS Nucleated RBC 0 10^3/ul; Eosinophil % 0 % (0-6); Hematocrit 26 % (42-52); Hemoglobin 8.4 g/dl (14.0-18.0); Lymphocyte % 4.5 % (25-47); Mean Corpuscular HGB Conc 33 g/dl (31-36); Mean Corpuscular Hemoglobin 27 pg (27-31); Mean Corpuscular Volume 84 fL (80-94); Mean Platelet Volume 8.3 um3 (7.4-10.4); Nucleated Red Blood Cells % 0; Platelet Count 322 10^3/ul (150-450); Red Blood Count 3.06 10^6/ul (4.00-5.40); Red Cell Distribution Width 16 % (10.5-15); White Blood Count 10.9 10^3/ul (3.5-10.8)
[2018-01-16] MEDS: Sodium Polystyrene ORAL.SOL* 15 GM/60 ML BTL PO SCH (05:31)
--- NOTE | 2018-01-16 07:42 | PN ---
Subjective - Subjective Reason for Note: Progress Note History: 1 day post craniotomy right fronto-parietal lobe for metastatic prostate cancer. He is awake, alert and oriented. He has slight head pain, but not much. He is aware of no new neurological deficit post surgery. He ate last night and has no nausea/vomiting. His glucose is on target. 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 Diabetes mellitus with insulin therapy (Chronic) E11.9, Z79.4 - Hold oral DM meds - FSBG ACHS with Lispro SS - Lantus increased last night but sugar remains high, will increase to 20 units tonight History of osteomyelitis (Chronic) Z87.39 History of prostate cancer (Chronic) Z85.46 Hyperlipidemia (Chronic) E78.5 - statin Lumbar spinal stenosis (Chronic) M48.06 Nephrolithiasis (Chronic) N20.0 Paroxysmal atrial fibrillation (Chronic) I48.0 - Rate and rhythm regular - Continue cardizem and coumadin Restless legs (Chronic) S/P laminectomy (Chronic) Z98.890 Status post total hip replacement, right (Chronic) Z96.641 - POD2 - POC as per ortho service - Continue DVT prophy with coumadin bridge - Pain control, bowel regimen, OOB with PT/OT Type 2 diabetes mellitus (Chronic) Current Medications: Current Medications Acetaminophen (Tylenol Tab*) 650 mg PO Q4H PRN PRN Reason: FEVER/PAIN Last Admin: 01/15/18 21:33 Dose: 650 mg Al Hydrox/Mg Hydrox/Simethicone (Maalox Plus*) 30 ml PO Q6H PRN PRN Reason: INDIGESTION Albuterol (Ventolin 2.5 Mg/3 Ml Neb.Gertrude*) 2.5 mg INH RT.[id number] AWAKE PRN PRN Reason: sob/wheezing Ascorbic Acid (Vitamin C Tab*) 500 mg PO 0900 [facility] Last Admin: 01/15/18 06:22 Dose: 500 mg Atorvastatin Calcium (Lipitor*) 40 mg PO BEDTIME [facility] Last Admin: 01/15/18 21:32 Dose: 40 mg Chlorthalidone (Hygroton Tab*) 25 mg PO 0900 [facility] Dexamethasone (Decadron Tab*) 4 mg PO QID [facility] Last Admin: 01/15/18 21:33 Dose: 4 mg Dextrose (D50w Syringe 50 Ml*) 12.5 gm IV PUSH .FOR FS < 60 - SS PRN PRN Reason: FS < 60 Dextrose (D50w Syringe 50 Ml*) 12.5 gm IV PUSH .FOR FS < 60 - SS PRN PRN Reason: FS < 60 Diltiazem HCl (Cardizem Cd Cap*) 240 mg PO BEDTIME [facility] Last Admin: 01/15/18 21:32 Dose: 240 mg Docusate Sodium (Colace Cap*) 100 mg PO 0900,2100 [facility] Last Admin: 01/15/18 21:33 Dose: 100 mg Ferrous Sulfate (Ferrous Sulfate Tab*) 325 mg PO 0900 [facility] Last Admin: 01/15/18 06:22 Dose: 325 mg Hydralazine HCl (Apresoline Iv*) 20 mg IV SLOW PU Q3H PRN PRN Reason: BLOOD PRESSURE Last Admin: 01/15/18 20:00 Dose: 20 mg Levofloxacin/Dextrose (Levaquin 250 Mg Ivpremx(*)) 250 mg in 50 mls @ 50 mls/ hr IVPB Q48H [facility] Last Admin: 01/14/18 08:43 Dose: 50 mls/hr Dextrose/Sodium Chloride (D5w 1/2 Ns 1000 Ml Bag*) 1,000 mls @ 50 mls/hr IV PER RATE [facility] Last Admin: 01/15/18 12:06 Dose: 50 mls/hr Insulin Glargine (Lantus(*)) 24 units SUBCUT 0900,2100 [facility] Last Admin: 01/15/18 21:32 Dose: 24 unit Insulin Human Lispro (Humalog*) 0 units SUBCUT Q4H LAURA; Protocol Last Admin: 01/16/18 04:27 Dose: Not Given Labetalol HCl (Trandate Iv*) 20 mg IV PUSH Q3H PRN PRN Reason: BLOOD PRESSURE Last Admin: 01/16/18 04:26 Dose: 20 mg Levetiracetam (Keppra Tab*) 1,000 mg PO 0900,2100 [facility] Last Admin: 01/15/18 21:32 Dose: 1,000 mg Magnesium Hydroxide (Milk Of Magnesia Liq*) 30 ml PO Q4H PRN PRN Reason: CONSTIPATION Melatonin (Melatonin) 3 mg PO BEDTIME PRN; Protocol PRN Reason: Sleep Last Admin: 01/11/18 22:01 Dose: 3 mg Omeprazole (Prilosec Cap*) 20 mg PO BEDTIME [facility] Last Admin: 01/15/18 21:33 Dose: 20 mg Ondansetron HCl (Zofran Inj*) 4 mg IV Q4H PRN PRN Reason: NAUSEA/VOMITING Pharmacy Profile Note (Scopolamine Patch Remove*) 1 note PATCH OFF ONCE ONE Stop: 01/18/18 09:01 Sodium Polystyrene Sulfonate (Kayexalate Oral.Gertrude*) 15 gm PO 0600,1800 [facility] Last Admin: 01/16/18 05:31 Dose: Not Given Trazodone HCl (Desyrel Tab*) 50 mg PO BEDTIME [facility] Last Admin: 01/15/18 21:33 Dose: 50 mg Home Medications: Home Medications Medication Instructions Recorded Confirmed Type Ascorbic Acid TAB* [Vitamin C 500 mg PO DAILY 12/12/17 01/08/18 History TAB*] Atorvastatin* [Lipitor*] 40 mg PO BEDTIME 12/12/17 01/08/18 History Chlorthalidone TAB* [Hygroton TAB*] 25 mg PO QAM 12/12/17 01/08/18 History Enoxaparin(*) [Lovenox(*)] 100 mg SUBCUT Q12HR #16 syringe 12/12/17 01/08/18 Rx Ferrous Sulfate TAB* 325 mg PO DAILY 12/12/17 01/08/18 History Insulin NPH Human Isophane 14 unit SUBCUT BEDTIME 12/12/17 01/08/18 History [Humulin N Kwikpen] Multivit-Mins/Iron/Folic/Lycop 1 tab PO DAILY 12/12/17 01/08/18 History [Centrum Ultra Mens] Omeprazole CAP* [Prilosec CAP* 20 20 mg PO BEDTIME 12/12/17 01/08/18 History MG] Warfarin TAB(*) [Coumadin TAB(*)] 3 mg PO EVERY OTHER DAY 12/12/17 01/08/18 History Warfarin TAB(*) [Coumadin TAB(*)] 4 mg PO EVERY OTHER DAY 12/12/17 01/08/18 History dilTIAZem HCl [Cartia Xt] 240 mg PO BEDTIME 12/12/17 01/08/18 History glipiZIDE TAB* [Glucotrol TAB*] 10 mg PO BID 12/12/17 01/08/18 History traMADol TAB* [Ultram*] 50 mg PO Q4H PRN MDD 6 tablets 12/12/17 01/08/18 History traZODone TAB* [Desyrel TAB*] 50 mg PO BEDTIME 12/12/17 01/08/18 History Allergies: Allergies Allergy/AdvReac Type Severity Reaction Status Date / Time codeine Allergy tongue Verified 01/08/18 10:55 swells hydrochlorothiazide Allergy increased Verified 01/08/18 10:55 [From Zestoretic] bun/ cr indapamide Allergy hypotension Verified 01/08/18 10:55 lisinopril Allergy Rash Verified 01/08/18 10:55 Objective - Vital Signs Vital Signs: Vital Signs 01/15/18 01/15/18 01/15/18 10:29 10:32 10:35 Temperature 98.4 F Pulse Rate 63 59 57 Respiratory 12 15 18 Rate Blood Pressure 175/76 186/83 (mmHg) O2 Sat by Pulse 99 100 100 Oximetry 01/15/18 01/15/18 01/15/18 10:40 10:45 10:51 Temperature Pulse Rate 58 56 58 Respiratory 12 21 16 Rate Blood Pressure 174/71 172/72 184/71 (mmHg) O2 Sat by Pulse 100 100 100 Oximetry 01/15/18 01/15/18 01/15/18 10:56 11:00 11:15 Temperature Pulse Rate 58 53 59 Respiratory 13 14 13 Rate Blood Pressure 169/72 174/76 (mmHg) O2 Sat by Pulse 100 99 99 Oximetry 01/15/18 01/15/18 01/15/18 11:50 11:52 12:00 Temperature 97.7 F 97.7 F Pulse Rate 57 58 55 Respiratory 19 14 16 Rate Blood Pressure 174/74 188/67 187/75 (mmHg) O2 Sat by Pulse 100 100 100 Oximetry 01/15/18 01/15/18 01/15/18 12:15 13:00 14:00 Temperature Pulse Rate 68 64 63 Respiratory 16 16 18 Rate Blood Pressure 163/58 165/54 157/54 (mmHg) O2 Sat by Pulse 100 100 100 Oximetry 01/15/18 01/15/18 01/15/18 15:00 15:01 16:00 Temperature Pulse Rate 88 90 95 Respiratory 25 25 17 Rate Blood Pressure 150/62 158/56 (mmHg) O2 Sat by Pulse 99 99 97 Oximetry 01/15/18 01/15/18 01/15/18 17:00 17:20 18:00 Temperature 98.3 F Pulse Rate 76 87 Respiratory 15 21 Rate Blood Pressure 149/56 (mmHg) O2 Sat by Pulse 98 97 Oximetry 01/15/18 01/15/18 01/15/18 18:01 19:00 19:16 Temperature 98.1 F Pulse Rate 81 82 Respiratory 18 21 Rate Blood Pressure 136/57 (mmHg) O2 Sat by Pulse 97 97 Oximetry 01/15/18 01/15/18 01/15/18 19:21 20:00 21:00 Temperature Pulse Rate 79 77 83 Respiratory 19 20 19 Rate Blood Pressure 155/66 (mmHg) O2 Sat by Pulse 97 98 97 Oximetry 01/15/18 01/15/18 01/15/18 21:24 22:00 23:00 Temperature Pulse Rate 71 73 Respiratory 20 15 17 Rate Blood Pressure (mmHg) O2 Sat by Pulse 98 96 Oximetry 01/15/18 01/15/18 01/16/18 23:20 23:22 00:00 Temperature 97.9 F Pulse Rate 74 Respiratory 20 16 Rate Blood Pressure (mmHg) O2 Sat by Pulse 96 Oximetry 01/16/18 01/16/18 01/16/18 00:55 01:00 01:30 Temperature Pulse Rate 72 72 70 Respiratory 19 13 14 Rate Blood Pressure 132/55 144/49 142/57 (mmHg) O2 Sat by Pulse 96 96 96 Oximetry 01/16/18 01/16/1801/16/18 02:00 02:30 03:00 Temperature Pulse Rate 61 58 72 Respiratory 14 5 17 Rate Blood Pressure 150/57 151/60 (mmHg) O2 Sat by Pulse 98 97 98 Oximetry 01/16/18 01/16/18 01/16/18 03:01 03:24 03:26 Temperature Pulse Rate 70 68 Respiratory 21 17 16 Rate Blood Pressure 151/51 157/67 (mmHg) O2 Sat by Pulse 98 98 Oximetry 01/16/18 01/16/18 01/16/18 03:30 03:36 04:00 Temperature 97.7 F Pulse Rate 65 64 Respiratory 16 14 Rate Blood Pressure 150/58 158/60 (mmHg) O2 Sat by Pulse 97 96 Oximetry 01/16/18 01/16/18 01/16/18 04:25 04:30 05:00 Temperature Pulse Rate 56 Respiratory 18 15 15 Rate Blood Pressure 164/61 (mmHg) O2 Sat by Pulse 97 Oximetry 01/16/18 01/16/18 01/16/18 05:05 05:14 05:30 Temperature Pulse Rate 64 62 64 Respiratory 17 17 25 Rate Blood Pressure 142/59 135/60 (mmHg) O2 Sat by Pulse 97 96 96 Oximetry 01/16/18 06:00 Temperature Pulse Rate 64 Respiratory 18 Rate Blood Pressure 150/65 (mmHg) O2 Sat by Pulse 96 Oximetry - Intake and Output Intake and Output: Intake & Output 01/13/18 01/14/18 01/15/18 01/16/18 11:59 11:59 11:59 11:59 Intake Total 2722 858 2718 1767 Output Total 6576 1771 2736 2790 Balance -550 813 2261 -1023 Weight 203 lb 9.6 oz 201 lb 6.4 oz 207 lb 10.807 oz Intake: IV Fluids 1932 141 ABX - LEVOFLOXACIN 50 D5W 1/2 NS 382 141 Lact RIngers 1500 IVPB 946 D5W 1/2 NS 946 Heparin 565 1019 Oral 7399 439 0030 680 Output: QUOC #1 125 Urine 1150 700 Burgess 2475 625 1750 2665 Estimated Blood Loss 50 Other: Date of Last Bowel 01/14/18 Movement # Bowel Movements 1 1 Estimated Stool Amount Large Medium Small ADLs: Meal Record Start: 01/08/18 16: 04 Freq: DAILY@0900,1400,1800 Status: Complete Protocol: Created 01/08/18 16:04 System (Rec: 01/08/18 16:04 System TELE-M12) Document 01/08/18 18:00 [id number] (Rec: 01/08/18 21:37 ZEP8718 TELE-C10) Document 01/09/18 09:00 LIV4792 (Rec: 01/09/18 10:14 WBF7272 TELE-C03) Document 01/09/18 14:00 HSL4517 (Rec: 01/09/18 14:05 JOX9760 TELE-M02) Document 01/09/18 17:40 CCR5739 (Rec: 01/09/18 17:40 YCN0062 TELE-C08) Document 01/10/18 09:00 AFV9024 (Rec: 01/10/18 10:33 UCB5442 TELE-C01) Document 01/10/18 14:00 GUZ6339 (Rec: 01/10/18 14:14 ZPI4264 TELE-C01) Document 01/10/18 17:24 NOZ6032 (Rec: 01/10/18 17:25 YNB2798 TELE-C08) Document 01/11/18 09:00 OYB2169 (Rec: 01/11/18 10:37 TCP0626 TELE-C11) Document 01/11/18 14:00 MBW8975 (Rec: 01/11/18 14:38 WGA7906 TELE-C03) Document 01/11/18 17:39 YSF9414 (Rec: 01/11/18 17:39 GPN0952 TELE-C08) Document 01/12/18 09:00 EPC9193 (Rec: 01/12/18 09:57 OAJ7685 TELE-C03) Document 01/12/18 14:00 VRN2481 (Rec: 01/12/18 14:33 BQA3930 TELE-C03) Document 01/12/18 17:54 MDA2488 (Rec: 01/12/18 17:55 QZG1260 TELE-C10) Document 01/13/18 09:00 PLR7206 (Rec: 01/13/18 09:41 XSW1564 TELE-C05) Document 01/13/18 13:52 BVO0701 (Rec: 01/13/18 13:54 QSI9597 TELE-C11) Document 01/13/18 21:57 KPK4049 (Rec: 01/13/18 21:57 RBY9995 TELE-C13) Document 01/14/18 09:00 DSM6654 (Rec: 01/14/18 11:21 TZT4923 TELE-C11) Document 01/14/18 13:18 VFB0762 (Rec: 01/14/18 13:18 CGI7567 TELE-C11) Document 01/14/18 22:21 YWR4512 (Rec: 01/14/18 22:21 MUN3354 TELE-C11) ADLs: Meal Record Start: 01/15/18 11: 55 Freq: ,,18 Status: Active Protocol: Created 01/15/18 11:55 EBX0160 (Rec: 01/15/18 11:55 LKB0296 ISDEMO-M03 ) Document 01/15/18 13:00 RFM8755 (Rec: 01/15/18 15:02 KDA0103 ICU-C16) Document 01/15/18 18:00 CZI7334 (Rec: 01/15/18 18:06 OGD0939 ICU-C16) Intake and Output Start: 01/08/18 10: 55 Freq: Status: Active Protocol: Created 01/08/18 10:55 System (Rec: 01/08/18 10:55 System ED-C24) Intake and Output Start: 01/08/18 16: 04 Freq: DAILY@0600,1400,2200 Status: Complete Protocol: Created 01/08/18 16:04 System (Rec: 01/08/18 16:04 System TELE-M12) Document 01/08/18 22:00 UCK2528 (Rec: 01/08/18 23:33 EDP3455 TELE-C10) Document 01/09/18 00:46 AGF3024 (Rec: 01/09/18 00:46 MAW3999 TELE-C08) Document 01/09/18 06:00 KRD7304 (Rec: 01/09/18 06:28 ZCQ4916 TELE-C01) Document 01/09/18 14:00 IGR9230 (Rec: 01/09/18 14:05 EGR0895 TELE-M02) Document 01/09/18 15:05 DPI5649 (Rec: 01/09/18 15:05 ZWZ1557 TELE-C07) Document 01/09/18 22:00 GFT0087 (Rec: 01/09/18 22:42 TLD8618 TELE-C11) Document 01/10/18 03:49 KZH1569 (Rec: 01/10/18 03:49 KDI6229 TELE-C08) Document 01/10/18 06:00 DGB5039 (Rec: 01/10/18 06:52 EDS3596 TELE-C11) Document 01/10/18 14:00 HNR0064 (Rec: 01/10/18 14:14 KXE5468 TELE-C01) Document 01/10/18 21:47 GQP8250 (Rec: 01/10/18 21:48 SSI7138 TELE-C11) Document 01/10/18 22:00 MUK7629 (Rec: 01/10/18 22:01 RKI5396 TELE-C11) Document 01/10/18 22:02 AIG1782 (Rec: 01/10/18 22:02 FHI0647 TELE-C09) Document 01/11/18 06:00 WXL8168 (Rec: 01/11/18 06:13 ZEZ6347 TELE-C35) Document 01/11/18 06:17 PKP0755 (Rec: 01/11/18 06:18 DCV4100 TELE-C35) Document 01/11/18 14:00 WVQ0173 (Rec: 01/11/18 14:38 OPA8371 TELE-C03) Document 01/11/18 21:41 XZP9834 (Rec: 01/11/18 21:43 WDC5685 TELE-C10) Document 01/12/18 05:37 KYK3138 (Rec: 01/12/18 05:40 TOZ4347 [id number]) Document 01/12/18 06:23 CWF3883 (Rec: 01/12/18 06:23 TVY9369 TELE-C11) Document 01/12/18 09:57 UFC7831 (Rec: 01/12/18 09:57 ADN2652 TELE-C03) Document 01/12/18 14:00 OKI8970 (Rec: 01/12/18 14:33 ATK3973 TELE-C03) Document 01/12/18 22:00 REG7530 (Rec: 01/12/18 22:17 JTE3122 TELE-C03) Document 01/13/18 06:00 AVD4974 (Rec: 01/13/18 06:59 [id number]) Document 01/13/18 13:52 MXM5962 (Rec: 01/13/18 13:54 WWR0588 TELE-C11) Document 01/13/18 22:08 GBL3745 (Rec: 01/13/18 22:10 WNQ5249 TELE-C13) Document 01/14/18 04:13 NYA5755 (Rec: 01/14/18 04:13 XKQ6191 TELE-M07) Document 01/14/18 06:50 JCE2675 (Rec: 01/14/18 06:50 BCU0040 TELE-C02) Document 01/14/18 14:00 EJK5470 (Rec: 01/14/18 15:16 OBL7795 TELE-C11) Document 01/14/18 22:22 ZGS4739 (Rec: 01/14/18 22:22 XHJ7804 TELE-C11) Document 01/14/18 22:27 ADT9286 (Rec: 01/14/18 22:28 DCY5295 TELE-C11) Document 01/15/18 04:44 JSK4396 (Rec: 01/15/18 04:46 ETF9529 TELE-C03) Intake and Output Start: 01/15/18 11: 55 Freq: Q1HR Status: Active Protocol: Created 01/15/18 11:55 MZB3911 (Rec: 01/15/18 11:55 UTF4153 ISDEMO-M03 ) Document 01/15/18 12:00 VYV7875 (Rec: 01/15/18 12:25 INN8286 ISDEMO-M03 ) Document 01/15/18 13:00 DVO9973 (Rec: 01/15/18 13:12 ZTI0582 ICU-C16) Document 01/15/18 14:24 MZT9551 (Rec: 01/15/18 14:24 XLW7290 ICU-C16) Document 01/15/18 14:46 MPH3782 (Rec: 01/15/18 14:46 OPX5997 ISDEMO-M03 ) Document 01/15/18 15:00 EJQ3564 (Rec: 01/15/18 15:02 RAN2705 ICU-C16) Document 01/15/18 16:00 CVA1939 (Rec: 01/15/18 16:13 IAP8390 ICU-C16) Document 01/15/18 16:58 YSM7870 (Rec: 01/15/18 16:58 BYT7413 ISDEMO-M03 ) Document 01/15/18 17:59 SWV8576 (Rec: 01/15/18 17:59 MYY6854 ISDEMO-M03 ) Document 01/15/18 18:07 NSC2997 (Rec: 01/15/18 18:09 ZET0560 ICU-C16) Document 01/15/18 19:00 EJP5648 (Rec: 01/15/18 19:36 JGG0044 ICU-L03) Document 01/15/18 22:00 NBN1425 (Rec: 01/15/18 22:08 KDC3711 ICU-C15) Document 01/15/18 22:00 ESQ4762 (Rec: 01/16/18 00:00 QUK9871 ICU-C15) Document 01/15/18 22:09 QVD7552 (Rec: 01/15/18 22:09 RUB5145 ICU-C15) Document 01/15/18 23:47 GAM1635 (Rec: 01/15/18 23:47 HIJ4222 ICU-C16) Document 01/16/18 00:37 VHC3499 (Rec: 01/16/18 00:38 KRC0107 ICU-C15) Document 01/16/18 01:47 TRV2282 (Rec: 01/16/18 01:47 EJT1969 ICU-C16) Document 01/16/18 02:00 OAH3649 (Rec: 01/16/18 02:28 PYU3859 ICU-C15) Document 01/16/18 03:00 IRG7824 (Rec: 01/16/18 03:26 HNA1636 ISDEMO-M03 ) Document 01/16/18 04:00 DFF3987 (Rec: 01/16/18 04:33 SSK1836 ISDEMO-M03 ) Document 01/16/18 05:00 NVY6062 (Rec: 01/16/18 05:16 ZKM0427 ICU-C15) Document 01/16/18 06:00 UNI8628 (Rec: 01/16/18 06:47 CZI6280 ICU-C16) - Physical Exam General: No Cyanosis, Yes Anemia, No Jaundice, No Clubbing Lungs and Chest: Yes: Chest Expansion Full, Chest Expansion Symetrica, Percussion Note Resonant, Vessicular Breath Sounds. No: Crackles, Wheezes Heart Rate and Rhythm: Irregular Additional Cardiovascular: Yes: Normal Heart Sounds, Heart Murmur. No: Pedal Edema Abdominal Exam: Yes: Soft, Bowel Sounds Present. No: Distention, Abdominal Tenderness - Extremities Cranial Nerves II-XII Intact: Yes Limbs: Abnormal Power - Left hand stronger than prior to surgery, can't lift shoulder - or move elbow - Neuro Orientation: A/O x3 Speech: Normal Results - Results Lab Results: Laboratory Results - last 24 hr 01/15/18 01/15/18 01/15/18 07:22 09:26 10:36 WBC RBC Hgb Hct MCV MCH MCHC RDW Plt Count MPV Neut % (Auto) Lymph % (Auto) [place] % (Auto) Eos % (Auto) Baso % (Auto) Absolute Neuts (auto) Absolute Lymphs (auto) Absolute Monos (auto) Absolute Eos (auto) Absolute Basos (auto) Absolute Nucleated RBC Nucleated RBC % ABG pH 7.33 L ABG pCO2 27 L ABG pO2 240 H ABG HCO3 16.6 L ABG O2 Saturation 98.1 H ABG Base Excess -10.7 L Sodium Potassium Chloride Carbon Dioxide Anion Gap BUN Creatinine Est GFR ( Amer) Est GFR (Non-Af Amer) BUN/Creatinine Ratio Glucose POC Glucose (mg/dL) 120 H 129 H Calcium 01/15/18 01/15/18 01/15/18 12:32 16:57 19:52 WBC RBC Hgb Hct MCV MCH MCHC RDW Plt Count MPV Neut % (Auto) Lymph % (Auto) [place] % (Auto) Eos % (Auto) Baso % (Auto) Absolute Neuts (auto) Absolute Lymphs (auto) Absolute Monos (auto) Absolute Eos (auto) Absolute Basos (auto) Absolute Nucleated RBC Nucleated RBC % ABG pH ABG pCO2 ABG pO2 ABG HCO3 ABG O2 Saturation ABG Base Excess Sodium Potassium Chloride Carbon Dioxide Anion Gap BUN Creatinine Est GFR ( Amer) Est GFR (Non-Af Amer) BUN/Creatinine Ratio Glucose POC Glucose (mg/dL) 138 H 276 H 270 H Calcium 01/16/18 01/16/18 01/16/18 00:36 05:12 05:12 WBC 10.9 H RBC 3.06 L Hgb 8.4 L Hct 26 L MCV 84 MCH 27 MCHC 33 RDW 16 H Plt Count 322 MPV 8.3 Neut % (Auto) 88.1 H Lymph % (Auto) 4.5 L [place] % (Auto) 7.3 H Eos % (Auto) 0 Baso % (Auto) 0.1 Absolute Neuts (auto) 9.6 H Absolute Lymphs (auto) 0.5 L Absolute Monos (auto) 0.8 Absolute Eos (auto) 0 Absolute Basos (auto) 0 Absolute Nucleated RBC 0 Nucleated RBC % 0 ABG pH ABG pCO2 ABG pO2 ABG HCO3 ABG O2 Saturation ABG Base Excess Sodium 138 Potassium 4.0 Chloride 109 Carbon Dioxide 17 L Anion Gap 12 H BUN 77 H Creatinine 2.95 H Est GFR ( Amer) 25.4 Est GFR (Non-Af Amer) 21.0 BUN/Creatinine Ratio 26.1 H Glucose 110 H POC Glucose (mg/dL) 94 Calcium 8.2 L Assessment - Problem List Assessment: Patient Problems Complex partial seizure (Acute) Extra-axial brain tumor (Acute) H/O craniotomy (Acute) 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) Stage 4 chronic kidney disease (Acute) UTI (urinary tract infection) (Acute) Afib (Chronic) Anemia (Chronic) Chronic indwelling Burgess catheter (Chronic) DVT prophylaxis (Chronic) Diabetes mellitus with insulin therapy (Chronic) History of osteomyelitis (Chronic) History of prostate cancer (Chronic) Hyperlipidemia (Chronic) Lumbar spinal stenosis (Chronic) Nephrolithiasis (Chronic) Paroxysmal atrial fibrillation (Chronic) Restless legs (Chronic) S/P laminectomy (Chronic) Status post total hip replacement, right (Chronic) Type 2 diabetes mellitus (Chronic) Plan: Complex partial seizure (Acute)Extra-axial brain tumor (Acute)H/O craniotomy ( Acute)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 He has good function today - his left arm is if anything slightly improved. I restated his dexamethasone waiting on guidance from neurosurgery Stage 4 chronic kidney disease (Acute) stable renal function DVT prophylaxis (Chronic) 11/14/17 right total hip arthroplasty. 12/12/17 He had a right posterior tibial vein DVT. Dr. Daniel changed him from subtherapeutic warfarin to enoxaparin 100 mg qdaily. I switched him to heparin IV. Neurosurgery will determine when it is safe to restart anticoagulation UTI (urinary tract infection) (Acute) treated Afib (Chronic) secondary diagnosis Anemia (Chronic) 50 mls of blood loss from craniotomy - H and H stable Chronic indwelling Burgess catheter (Chronic) ongoing Diabetes mellitus with insulin therapy (Chronic) Tight control despite dexamethasone I discussed the above with Landon Montilla and called Talita Montilla with the same information.
--- NOTE | 2018-01-16 07:59 | RAD ---
Indication: Postop tumor resection. LEFT arm weakness. History of extra-axial mass along the RIGHT posterior frontal lobe with involvement of the dura and overlying bone as well as the soft tissues of the scalp. Comparison: January 09, 2018 MRI. Technique: Noncontrast CT vertex of skull through foramen magnum. Report: Postsurgical change of approximate 5 cm RIGHT frontal craniectomy with prosthetic patch and overlying cutaneous juanita and surgical drain. Vasogenic edema at the RIGHT frontal lobe at the level of the centrum semiovale bowel extending to the vertex. Regional sulcal effacement and extension of the enlarged resection of the RIGHT frontal lobe into the craniectomy defect. Small volume of RIGHT frontal lobe distribution extra-axial low-density fluid and pneumocephalus. Negative for midline shift. Unremarkable ventricles and basal cisterns. Negative for hyperdense intra or extra-axial hematoma. Unremarkable partially visualized orbital contents. No suspicious calvarial or skull base lesions evident. Grossly clear visualized paranasal sinuses and mastoid air spaces. IMPRESSION: #. Postsurgical change of approximate 5 cm RIGHT frontal craniectomy with prosthetic patch and overlying cutaneous juanita and surgical drain. #. Vasogenic edema at the RIGHT frontal lobe at the level of the centrum semiovale bowel extending to the vertex. Regional sulcal effacement and extension of the enlarged resection of the RIGHT frontal lobe into the craniectomy defect. Negative for midline shift or downward herniation. #. Small volume of RIGHT frontal lobe distribution extra-axial low-density fluid and pneumocephalus. Negative for hyperdense intra-axial extra-axial hematoma.
[2018-01-16] MEDS: hydrALAZINE IV* 20 MG/ML VIAL IV SLOW PU PRN (08:37)
[2018-01-16] MEDS: Docusate CAP* 100 MG PO SCH ×2 (09:09→22:33)
[2018-01-16] MEDS: levETIRAcetam TAB* 500 MG PO SCH ×2 (09:09→22:32)
[2018-01-16] MEDS: Ascorbic Acid TAB* 500 MG PO SCH (09:09)
[2018-01-16] MEDS: Ferrous Sulfate TAB* 325 MG PO SCH (09:10)
[2018-01-16] MEDS: Chlorthalidone TAB* 50 MG PO SCH (09:10)
[2018-01-16] MEDS: Insulin GLARGINE(*) 1 UNITS UNIT SUBCUT SCH ×2 (09:11→22:33)
[2018-01-16] MEDS: Dexamethasone TAB* 4 MG PO SCH (09:55)
[2018-01-16] MEDS: Levofloxacin 250 MG IVPREMX(*) 250 MG/50 ML BAG IVPB SCH (09:55)
--- NOTE | 2018-01-16 09:57 | PN ---
Progress Note - Progress Note Date of Service: 01/16/18 SOAP: Subjective: [S/p right craniotomy for tumor excision, POD #1. Patient feeling well this morning. Eating and drinking without difficulty. Denies headache, nausea, vomiting. LUE weakness persistent. ] Objective: [ Vital Signs: Temp Pulse Resp BP Pulse Ox 98.5 F 64 18 150/65 96 01/16/18 07:55 01/16/18 06:00 01/16/18 06:00 01/16/18 06:00 01/16/18 06:00 General: Alert and no acute distress Neuro: LUE weakness persistent. Incision: Intact with juanita. No swelling. Drain discontinued today. Drain output 01/15/18 01/15/18 01/15/18 14:46 18:07 22:00 Output, QUOC #1 45 30 20 01/16/18 02:00 Output, QUOC #[address] brain 01/16/18 shows postop right craniotomy changes and edema, tumor removed. ] Assessment: [Stable post-op.] Plan: [1. Transfer to short stay unit 2. PT and OT consults 3. No HOB restriction 4. Up with assistance 5. Discontinue decadron 6. Discontinue IVF 7. Start Heparin 5000 units Q12H]
[2018-01-16 11:15] LABS: INR 1.02 (0.77-1.02)
[2018-01-16] MEDS: Heparin VIAL(*) 5000 UNITS/ML VIAL (FIVE THOUSAND) SUBCUT SCH ×2 (11:40→22:34)
[2018-01-16] MEDS: Acetaminophen TAB* 325 MG PO PRN ×3 (12:05→20:07)
[2018-01-16] MEDS ORDERED: Dextrose 50% Syringe 50 ML* 25 GM/50 ML SYRINGE IV PUSH PRN (15:32)
[2018-01-16] MEDS: glipiZIDE TAB* 5 MG PO SCH (18:30)
--- NOTE | 2018-01-16 19:55 | CONS ---
INPATIENT CONSULTATION: DATE OF CONSULT: 01/09/18 CHIEF COMPLAINT: Left upper extremity weakness. HISTORY OF PRESENT ILLNESS: This 72-year-old gentleman presented to the emergency room with a 2-day history of left upper extremity weakness. The weakness began on the Monday prior to admission and was not associated with any progression and not associated with any headache or other stroke symptoms. As part of his evaluation in the emergency room, he was referred for a CT scan of his head, which showed a mass in the right parietal region. The patient's past history was significant for a previous diagnosis of prostatic carcinoma, for which he is under care by Dr. Cevallos. The patient had noticed a lump on the right side of his head approximately 4 weeks ago, but has noticed that this lump has gotten larger in the last couple of weeks. It is not particularly tender. His history is also significant for the fact that he had a recent total hip arthroplasty, which was complicated by deep venous thrombosis, for which he has been on Lovenox. Due to the presence of his abnormal CT, neurosurgical consultation was requested. PAST MEDICAL HISTORY: Significant for prostate cancer, insulin-dependent type 2 diabetes, hypertension, hyperlipidemia, chronic renal disease, vitamin B12 deficiency, chronic anemia, atrial fibrillation, and gastroesophageal reflux disease. PAST SURGICAL HISTORY: Includes previous lumbar laminectomy, cataract surgery, cervical surgery, kidney stents due to kidney stones, and a right total hip arthroplasty. CURRENT MEDICATIONS: Include: 1. Vitamin C 500 mg p.o. daily. 2. Lipitor 40 mg p.o. nightly. 3. Hygroton 25 mg p.o. daily. 4. Diltiazem 240 mg p.o. nightly. 5. Ferrous sulfate 325 mg p.o. daily. 6. Glipizide 10 mg p.o. twice daily. 7. Insulin Humulin 14 units subcu every evening. 8. Prilosec 20 mg p.o. daily. 9. Ultram 50 mg p.o. every 6 hours as needed for pain. 10. Desyrel 50 mg p.o. nightly. 11. Warfarin on alternating dose of 3 mg and 4 mg. 12. Lovenox 100 mg subcu daily. ALLERGIES: Include CODEINE, HYDROCHLOROTHIAZIDE, LISINOPRIL, and INDAPAMIDE. FAMILY HISTORY: Family history was taken and noncontributory to this illness. SOCIAL HISTORY: Reveals that he has a supportive family and previously he has decided on a DNR status due to his prostatic carcinoma. REVIEW OF SYSTEMS: A system review was performed and was essentially negative, except for the illness as mentioned in the history of present illness. PHYSICAL EXAM: On examination, the head revealed a mass measuring approximately 3 x 3 cm just to the right of midline in the parietal region. This was raised approximately 5 to 7 mm at its highest point. Eyes revealed full range of extraocular movements with pupils that were equal and reactive to light. Neck was supple. Lungs were clear to auscultation. Cardiovascular exam revealed a regular rate and rhythm. Abdomen was soft with normal bowel sounds and no tenderness. Extremities revealed full range of passive motion. Neurological examination reveals mental status to be normal. 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 Sensory examination was normal. Cranial nerves II through XII were intact. DIAGNOSTIC STUDIES/LAB DATA: CT scan was reviewed and showed a mass in the right parietal region directly beneath the subcutaneous mass. IMPRESSION AND PLAN: This has radiographic characteristic consistent with a probable prostatic metastasis. We are going to study him further with an MRI study of his brain before deciding on definitive treatment. Thank you for asking me to see this gentleman and I will follow him with you. [id number]/CPS #: [id number] NIKKI
[2018-01-16] MEDS: Atorvastatin* 40 MG TAB PO SCH (22:32)
[2018-01-16] MEDS: traZODone TAB* 50 MG TAB PO SCH (22:33)
[2018-01-16] MEDS: Omeprazole CAP* 20 MG PO SCH (22:33)
[2018-01-16] MEDS: Diltiazem CD CAP* 240 MG PO SCH (22:33)
[2018-01-17 06:46] LABS: ABS Basophils 0 10^3/ul (0-0.2); ABS Eosinophils 0.1 10^3/ul (0-0.6); ABS Lymphocytes 1.1 10^3/ul (1.0-4.8); ABS Monocytes 1.2 10^3/ul (0-0.8); ABS Neutrophils 6.8 10^3/ul (1.5-7.7); ABS Nucleated RBC 0 10^3/ul; Eosinophil % 0.6 % (0-6); Hematocrit 27 % (42-52); Hemoglobin 8.9 g/dl (14.0-18.0); Lymphocyte % 12.4 % (25-47); Mean Corpuscular HGB Conc 34 g/dl (31-36); Mean Corpuscular Hemoglobin 28 pg (27-31); Mean Corpuscular Volume 82 fL (80-94); Mean Platelet Volume 8.5 um3 (7.4-10.4); Nucleated Red Blood Cells % 0; Platelet Count 362 10^3/ul (150-450); Red Blood Count 3.24 10^6/ul (4.00-5.40); Red Cell Distribution Width 16 % (10.5-15); White Blood Count 9.1 10^3/ul (3.5-10.8)
[2018-01-17 07:15] LABS: EGFR Non-African American 20.9 (>60)
[2018-01-17] MEDS: Acetaminophen TAB* 325 MG PO PRN ×3 (07:31→21:52)
[2018-01-17] MEDS: glipiZIDE TAB* 5 MG PO SCH ×2 (07:31→17:18)
--- NOTE | 2018-01-17 07:46 | PN ---
Subjective - Subjective Reason for Note: Progress Note History: He has not regained any strength in his left arm, but his left hand remains the same. He has no other new symptoms. He was hypoglycemic this morning. 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 Diabetes mellitus with insulin therapy (Chronic) E11.9, Z79.4 - Hold oral DM meds - FSBG ACHS with Lispro SS - Lantus increased last night but sugar remains high, will increase to 20 units tonight History of osteomyelitis (Chronic) Z87.39 History of prostate cancer (Chronic) Z85.46 Hyperlipidemia (Chronic) E78.5 - statin Lumbar spinal stenosis (Chronic) M48.06 Nephrolithiasis (Chronic) N20.0 Paroxysmal atrial fibrillation (Chronic) I48.0 - Rate and rhythm regular - Continue cardizem and coumadin Restless legs (Chronic) S/P laminectomy (Chronic) Z98.890 Status post total hip replacement, right (Chronic) Z96.641 - POD2 - POC as per ortho service - Continue DVT prophy with coumadin bridge - Pain control, bowel regimen, OOB with PT/OT Type 2 diabetes mellitus (Chronic) Current Medications: Current Medications Acetaminophen (Tylenol Tab*) 650 mg PO Q4H PRN PRN Reason: FEVER/PAIN Last Admin: 01/17/18 07:31 Dose: 650 mg Al Hydrox/Mg Hydrox/Simethicone (Maalox Plus*) 30 ml PO Q6H PRN PRN Reason: INDIGESTION Albuterol (Ventolin 2.5 Mg/3 Ml Neb.Gertrude*) 2.5 mg INH RT.[id number] AWAKE PRN PRN Reason: sob/wheezing Ascorbic Acid (Vitamin C Tab*) 500 mg PO 0900 [facility] Last Admin: 01/16/18 09:09 Dose: 500 mg Atorvastatin Calcium (Lipitor*) 40 mg PO BEDTIME [facility] Last Admin: 01/16/18 22:32 Dose: 40 mg Chlorthalidone (Hygroton Tab*) 25 mg PO 0900 [facility] Last Admin: 01/16/18 09:10 Dose: 25 mg Dextrose (D50w Syringe 50 Ml*) 12.5 gm IV PUSH .FOR FS < 60 - SS PRN PRN Reason: FS < 60 Diltiazem HCl (Cardizem Cd Cap*) 240 mg PO BEDTIME [facility] Last Admin: 01/16/18 22:33 Dose: 240 mg Docusate Sodium (Colace Cap*) 100 mg PO 0900,2100 [facility] Last Admin: 01/16/18 22:33 Dose: 100 mg Ferrous Sulfate (Ferrous Sulfate Tab*) 325 mg PO 0900 [facility] Last Admin: 01/16/18 09:10 Dose: 325 mg Glipizide (Glucotrol Tab*) 10 mg PO 0800,1700 [facility] Last Admin: 01/17/18 07:31 Dose: 10 mg Heparin Sodium (Porcine) (Heparin Vial(*)) 5,000 units SUBCUT Q12HR [facility] Last Admin: 01/16/18 22:34 Dose: 5,000 units Insulin Glargine (Lantus(*)) 18 units SUBCUT 0900,2100 [facility] Last Admin: 01/16/18 22:33 Dose: 18 units Insulin Human Lispro (Humalog*) 1 units SUBCUT AC [facility]; Protocol Last Admin: 01/16/18 18:27 Dose: Not Given Levetiracetam (Keppra Tab*) 1,000 mg PO 0900,2100 [facility] Last Admin: 01/16/18 22:32 Dose: 1,000 mg Magnesium Hydroxide (Milk Of Magnesia Liq*) 30 ml PO Q4H PRN PRN Reason: CONSTIPATION Melatonin (Melatonin) 3 mg PO BEDTIME PRN; Protocol PRN Reason: Sleep Last Admin: 01/11/18 22:01 Dose: 3 mg Omeprazole (Prilosec Cap*) 20 mg PO BEDTIME [facility] Last Admin: 01/16/18 22:33 Dose: 20 mg Ondansetron HCl (Zofran Inj*) 4 mg IV Q4H PRN PRN Reason: NAUSEA/VOMITING Trazodone HCl (Desyrel Tab*) 50 mg PO BEDTIME [facility] Last Admin: 01/16/18 22:33 Dose: 50 mg Home Medications: Home Medications Medication Instructions Recorded Confirmed Type Ascorbic Acid TAB* [Vitamin C 500 mg PO DAILY 12/12/17 01/08/18 History TAB*] Atorvastatin* [Lipitor*] 40 mg PO BEDTIME 12/12/17 01/08/18 History Chlorthalidone TAB* [Hygroton TAB*] 25 mg PO QAM 12/12/17 01/08/18 History Enoxaparin(*) [Lovenox(*)] 100 mg SUBCUT Q12HR #16 syringe 12/12/17 01/08/18 Rx Ferrous Sulfate TAB* 325 mg PO DAILY 12/12/17 01/08/18 History Insulin NPH Human Isophane 14 unit SUBCUT BEDTIME 12/12/17 01/08/18 History [Humulin N Kwikpen] Multivit-Mins/Iron/Folic/Lycop 1 tab PO DAILY 12/12/17 01/08/18 History [Centrum Ultra Mens] Omeprazole CAP* [Prilosec CAP* 20 20 mg PO BEDTIME 12/12/17 01/08/18 History MG] Warfarin TAB(*) [Coumadin TAB(*)] 3 mg PO EVERY OTHER DAY 12/12/17 01/08/18 History Warfarin TAB(*) [Coumadin TAB(*)] 4 mg PO EVERY OTHER DAY 12/12/17 01/08/18 History dilTIAZem HCl [Cartia Xt] 240 mg PO BEDTIME 12/12/17 01/08/18 History glipiZIDE TAB* [Glucotrol TAB*] 10 mg PO BID 12/12/17 01/08/18 History traMADol TAB* [Ultram*] 50 mg PO Q4H PRN MDD 6 tablets 12/12/17 01/08/18 History traZODone TAB* [Desyrel TAB*] 50 mg PO BEDTIME 12/12/17 01/08/18 History Allergies: Allergies Allergy/AdvReac Type Severity Reaction Status Date / Time codeine Allergy tongue Verified 01/08/18 10:55 james hydrochlorothiazide Allergy increased Verified 01/08/18 10:55 [From Zestoretic] bun/ cr indapamide Allergy hypotension Verified 01/08/18 10:55 lisinopril Allergy Rash Verified 01/08/18 10:55 Objective - Vital Signs Vital Signs: Vital Signs 01/16/18 01/16/18 01/16/18 07:55 08:00 08:01 Temperature 98.5 F Pulse Rate 58 63 Respiratory 26 20 Rate Blood Pressure 178/72 (mmHg) O2 Sat by Pulse 98 97 Oximetry 01/16/18 01/16/18 01/16/18 08:31 08:39 08:55 Temperature Pulse Rate 60 58 70 Respiratory 14 20 25 Rate Blood Pressure 153/65 172/72 160/61 (mmHg) O2 Sat by Pulse 97 97 97 Oximetry 01/16/18 01/16/18 01/16/18 09:00 09:16 09:30 Temperature Pulse Rate 76 78 75 Respiratory 19 18 16 Rate Blood Pressure 166/62 175/61 174/67 (mmHg) O2 Sat by Pulse 96 96 96 Oximetry 01/16/18 01/16/18 01/16/18 10:00 10:04 10:31 Temperature Pulse Rate 78 71 68 Respiratory 18 17 21 Rate Blood Pressure 149/61 146/73 (mmHg) O2 Sat by Pulse 96 95 96 Oximetry 01/16/18 01/16/18 01/16/18 11:00 11:01 12:00 Temperature 97.9 F Pulse Rate 71 69 69 Respiratory 21 25 18 Rate Blood Pressure 123/68 133/80 (mmHg) O2 Sat by Pulse 96 96 97 Oximetry 01/16/18 01/16/18 01/16/18 13:00 13:01 13:35 Temperature Pulse Rate 69 71 Respiratory 14 17 16 Rate Blood Pressure 131/69 (mmHg) O2 Sat by Pulse 96 96 Oximetry 01/16/18 01/16/18 01/16/18 14:00 14:01 14:57 Temperature 97.8 F Pulse Rate 70 67 63 Respiratory 17 19 16 Rate Blood Pressure 139/65 127/54 (mmHg) O2 Sat by Pulse 97 96 100 Oximetry 01/16/18 01/16/18 01/16/18 19:05 20:10 23:45 Temperature 97.8 F Pulse Rate 65 70 Respiratory 18 18 20 Rate Blood Pressure 141/63 150/62 (mmHg) O2 Sat by Pulse 99 98 Oximetry 01/17/18 01/17/18 03:44 06:51 Temperature 98.1 F 98.5 F Pulse Rate 66 76 Respiratory 16 17 Rate Blood Pressure 131/45 122/54 (mmHg) O2 Sat by Pulse 99 99 Oximetry - Intake and Output Intake and Output: Intake & Output 01/14/18 01/15/18 01/16/18 01/17/18 11:59 11:59 11:59 11:59 Intake Total 960 4761 2582 2275 Output Total 1775 2500 3235 2835 Balance -815 2261 -653 -560 Weight 203 lb 9.6 oz 201 lb 6.4 oz 207 lb 10.807 oz Intake: IV Fluids 1932 141 ABX - LEVOFLOXACIN 50 D5W 1/2 NS 382 141 Lact RIngers 1500 IVPB 946 D5W 1/2 NS 946 Heparin 1019 Oral 960 1810 1495 2275 Output: QUOC #1 125 Urine 1150 700 Burgess 625 1750 3110 2835 Estimated Blood Loss 50 Other: Date of Last Bowel 01/14/18 Movement # Bowel Movements 1 Estimated Stool Amount Medium Small Small ADLs: Meal Record Start: 01/08/18 16: 04 Freq: DAILY@0900,1400,1800 Status: Complete Protocol: Created 01/08/18 16:04 System (Rec: 01/08/18 16:04 System TELE-M12) Document 01/08/18 18:00 [id number] (Rec: 01/08/18 21:37 MGK1056 TELE-C10) Document 01/09/18 09:00 QWZ0302 (Rec: 01/09/18 10:14 GWR4326 TELE-C03) Document 01/09/18 14:00 KFR6965 (Rec: 01/09/18 14:05 ZSN0855 TELE-M02) Document 01/09/18 17:40 DRE4638 (Rec: 01/09/18 17:40 KSS3435 TELE-C08) Document 01/10/18 09:00 XYD1975 (Rec: 01/10/18 10:33 WIL1961 TELE-C01) Document 01/10/18 14:00 RAC6669 (Rec: 01/10/18 14:14 AVS2839 TELE-C01) Document 01/10/18 17:24 JZY4852 (Rec: 01/10/18 17:25 HVC2607 TELE-C08) Document 01/11/18 09:00 CTV3183 (Rec: 01/11/18 10:37 RRZ9281 TELE-C11) Document 01/11/18 14:00 WKH2160 (Rec: 01/11/18 14:38 QYJ9302 TELE-C03) Document 01/11/18 17:39 TOT4033 (Rec: 01/11/18 17:39 NKF5521 TELE-C08) Document 01/12/18 09:00 NFY5439 (Rec: 01/12/18 09:57 UCK5466 TELE-C03) Document 01/12/18 14:00 CZP0630 (Rec: 01/12/18 14:33 FUL1415 TELE-C03) Document 01/12/18 17:54 MCH9096 (Rec: 01/12/18 17:55 HLA6203 TELE-C10) Document 01/13/18 09:00 SDF3361 (Rec: 01/13/18 09:41 PJX1124 TELE-C05) Document 01/13/18 13:52 YGD7386 (Rec: 01/13/18 13:54 FRF1011 TELE-C11) Document 01/13/18 21:57 VBV5416 (Rec: 01/13/18 21:57 SXF7736 TELE-C13) Document 01/14/18 09:00 YOY1846 (Rec: 01/14/18 11:21 ROE6321 TELE-C11) Document 01/14/18 13:18 QNY5484 (Rec: 01/14/18 13:18 IZF5853 TELE-C11) Document 01/14/18 22:21 QWW7832 (Rec: 01/14/18 22:21 SBX1548 TELE-C11) ADLs: Meal Record Start: 01/15/18 11: 55 Freq: ,,18 Status: Complete Protocol: Created 01/15/18 11:55 QNJ9005 (Rec: 01/15/18 11:55 SXN8244 ISDEMO-M03 ) Document 01/15/18 13:00 MWT9320 (Rec: 01/15/18 15:02 NXZ0036 ICU-C16) Document 01/15/18 18:00 ZEM3944 (Rec: 01/15/18 18:06 ABB3420 ICU-C16) Document 01/16/18 09:02 EHN7652 (Rec: 01/16/18 09:02 QSS1959 ICU-C16) ADLs: Meal Record Start: 01/16/18 13: 35 Freq: 09,13,18 Status: Active Protocol: Created 01/16/18 13:35 BTA3233 (Rec: 01/16/18 13:35 API5095 ICU-C10) Document 01/16/18 18:00 LDI7254 (Rec: 01/16/18 18:07 SSU-C10) Intake and Output Start: 01/08/18 10: 55 Freq: Status: Active Protocol: Created 01/08/18 10:55 System (Rec: 01/08/18 10:55 System ED-C24) Intake and Output Start: 01/08/18 16: 04 Freq: DAILY@0600,1400,2200 Status: Complete Protocol: Created 01/08/18 16:04 System (Rec: 01/08/18 16:04 System TELE-M12) Document 01/08/18 22:00 JAP0474 (Rec: 01/08/18 23:33 UJG4449 TELE-C10) Document 01/09/18 00:46 JME5268 (Rec: 01/09/18 00:46 IZV9901 TELE-C08) Document 01/09/18 06:00 DMP7410 (Rec: 01/09/18 06:28 XMK0655 TELE-C01) Document 01/09/18 14:00 QUX2132 (Rec: 01/09/18 14:05 IQG2217 TELE-M02) Document 01/09/18 15:05 WIM4761 (Rec: 01/09/18 15:05 JDQ2061 TELE-C07) Document 01/09/18 22:00 LTI0725 (Rec: 01/09/18 22:42 ZYE5090 TELE-C11) Document 01/10/18 03:49 ZGK6632 (Rec: 01/10/18 03:49 DAR6139 TELE-C08) Document 01/10/18 06:00 XXG3805 (Rec: 01/10/18 06:52 JCB5428 TELE-C11) Document 01/10/18 14:00 MVM5513 (Rec: 01/10/18 14:14 BRU3178 TELE-C01) Document 01/10/18 21:47 YFN9155 (Rec: 01/10/18 21:48 AHR2849 TELE-C11) Document 01/10/18 22:00 TFQ2110 (Rec: 01/10/18 22:01 KZG7951 TELE-C11) Document 01/10/18 22:02 WAH4860 (Rec: 01/10/18 22:02 VNU4744 TELE-C09) Document 01/11/18 06:00 DOQ9859 (Rec: 01/11/18 06:13 SMB0690 TELE-C35) Document 01/11/18 06:17 RKL1932 (Rec: 01/11/18 06:18 VSW8592 TELE-C35) Document 01/11/18 14:00 TGH2878 (Rec: 01/11/18 14:38 KXY8731 TELE-C03) Document 01/11/18 21:41 IPE4379 (Rec: 01/11/18 21:43 LPO5965 TELE-C10) Document 01/12/18 05:37 AVU8802 (Rec: 01/12/18 05:40 HUG3012 [id number]) Document 01/12/18 06:23 OXX6708 (Rec: 01/12/18 06:23 EBZ1144 TELE-C11) Document 01/12/18 09:57 DSV8295 (Rec: 01/12/18 09:57 XBK3975 TELE-C03) Document 01/12/18 14:00 HLH5092 (Rec: 01/12/18 14:33 IGF7092 TELE-C03) Document 01/12/18 22:00 PFW3570 (Rec: 01/12/18 22:17 SVF2916 TELE-C03) Document 01/13/18 06:00 WWD2624 (Rec: 01/13/18 06:59 ZCQ1023 [id number]) Document 01/13/18 13:52 JBO7533 (Rec: 01/13/18 13:54 EIA2984 TELE-C11) Document 01/13/18 22:08 IOE5229 (Rec: 01/13/18 22:10 IMN3711 TELE-C13) Document 01/14/18 04:13 ASF8347 (Rec: 01/14/18 04:13 AAH6564 TELE-M07) Document 01/14/18 06:50 TLR9157 (Rec: 01/14/18 06:50 YAB3323 TELE-C02) Document 01/14/18 14:00 UEB7458 (Rec: 01/14/18 15:16 JLJ9068 TELE-C11) Document 01/14/18 22:22 JOE4682 (Rec: 01/14/18 22:22 FHO2781 TELE-C11) Document 01/14/18 22:27 JJS3398 (Rec: 01/14/18 22:28 FBI1221 TELE-C11) Document 01/15/18 04:44 VAJ1868 (Rec: 01/15/18 04:46 FSK6494 TELE-C03) Intake and Output Start: 01/15/18 11: 55 Freq: Q1HR Status: Complete Protocol: Created 01/15/18 11:55 XOD3193 (Rec: 01/15/18 11:55 OEO1401 ISDEMO-M03 ) Document 01/15/18 12:00 QND8179 (Rec: 01/15/18 12:25 SQO0803 ISDEMO-M03 ) Document 01/15/18 13:00 JUZ6831 (Rec: 01/15/18 13:12 CAX1520 ICU-C16) Document 01/15/18 14:24 ZOU9240 (Rec: 01/15/18 14:24 UKK1146 ICU-C16) Document 01/15/18 14:46 GBE3982 (Rec: 01/15/18 14:46 SAX1615 ISDEMO-M03 ) Document 01/15/18 15:00 LVD0525 (Rec: 01/15/18 15:02 XLQ0253 ICU-C16) Document 01/15/18 16:00 UWO1886 (Rec: 01/15/18 16:13 IBC1277 ICU-C16) Document 01/15/18 16:58 QAZ5068 (Rec: 01/15/18 16:58 OXM0544 ISDEMO-M03 ) Document 01/15/18 17:59 BLA0436 (Rec: 01/15/18 17:59 MWB4270 ISDEMO-M03 ) Document 01/15/18 18:07 BML1235 (Rec: 01/15/18 18:09 VSF2595 ICU-C16) Document 01/15/18 19:00 XEW7036 (Rec: 01/15/18 19:36 IRV6523 ICU-L03) Document 01/15/18 22:00 NLV7656 (Rec: 01/15/18 22:08 IDK0565 ICU-C15) Document 01/15/18 22:00 ZMF1139 (Rec: 01/16/18 00:00 ZVZ5012 ICU-C15) Document 01/15/18 22:09 HCE6875 (Rec: 01/15/18 22:09 RYI7726 ICU-C15) Document 01/15/18 23:47 MYE1153 (Rec: 01/15/18 23:47 UDX9678 ICU-C16) Document 01/16/18 00:37 XVD2273 (Rec: 01/16/18 00:38 NZY2814 ICU-C15) Document 01/16/18 01:47 CSO2985 (Rec: 01/16/18 01:47 RUR6399 ICU-C16) Document 01/16/18 02:00 CHI7310 (Rec: 01/16/18 02:28 MBZ4917 ICU-C15) Document 01/16/18 03:00 RNG7188 (Rec: 01/16/18 03:26 SKI3678 ISDEMO-M03 ) Document 01/16/18 04:00 THO4477 (Rec: 01/16/18 04:33 HAU5145 ISDEMO-M03 ) Document 01/16/18 05:00 UHV6963 (Rec: 01/16/18 05:16 DBZ1944 ICU-C15) Document 01/16/18 06:00 XQT6311 (Rec: 01/16/18 06:47 UGF0642 ICU-C16) Document 01/16/18 08:00 BRG9782 (Rec: 01/16/18 09:53 WFM6782 ICU-C10) Document 01/16/18 09:00 OGZ9432 (Rec: 01/16/18 09:53 GCB0344 ICU-C10) Document 01/16/18 10:00 EBQ5239 (Rec: 01/16/18 10:00 NFW6516 ISDEMO-M03 ) Document 01/16/18 10:57 OGC4588 (Rec: 01/16/18 10:58 HMG1763 ISDEMO-M03 ) Document 01/16/18 12:00 FLT3882 (Rec: 01/16/18 12:51 CTC5702 ISDEMO-M03 ) Document 01/16/18 12:51 KTE6958 (Rec: 01/16/18 12:51 SEB4884 ISDEMO-M03 ) Intake and Output Start: 01/16/18 13: 35 Freq: DAILY@0600,1400,2200 Status: Active Protocol: Created 01/16/18 13:35 GMD7803 (Rec: 01/16/18 13:35 PLT8913 ICU-C10) Document 01/16/18 14:28 TEV2854 (Rec: 01/16/18 14:28 EQK3207 ICU-C10) Document 01/16/18 21:20 GTF7099 (Rec: 01/16/18 21:20 SSU-C02) Document 01/17/18 03:48 LCW1528 (Rec: 01/17/18 03:49 GYU5580 [id number]) Document 01/17/18 06:00 UUY3711 (Rec: 01/17/18 06:19 UXN9699 SSU-C02) - Physical Exam General: No Cyanosis, Yes Anemia, No Jaundice, No Clubbing Lungs and Chest: Yes: Chest Expansion Full, Chest Expansion Symetrica, Percussion Note Resonant, Vessicular Breath Sounds. No: Crackles, Wheezes Heart Rate and Rhythm: Irregular Additional Cardiovascular: Yes: Normal Heart Sounds. No: Heart Murmur, Pedal Edema Abdominal Exam: Yes: Soft, Bowel Sounds Present. No: Distention, Abdominal Mass , Abdominal Tenderness Results - Results Lab Results: Laboratory Results - last 24 hr 01/16/18 01/16/18 01/16/18 04:25 08:26 10:49 WBC RBC Hgb Hct MCV MCH MCHC RDW Plt Count MPV Neut % (Auto) Lymph % (Auto) [place] % (Auto) Eos % (Auto) Baso % (Auto) Absolute Neuts (auto) Absolute Lymphs (auto) Absolute Monos (auto) Absolute Eos (auto) Absolute Basos (auto) Absolute Nucleated RBC Nucleated RBC % INR (Anticoag Therapy) 1.02 APTT 27.7 Sodium Potassium Chloride Carbon Dioxide Anion Gap BUN Creatinine Est GFR ( Amer) Est GFR (Non-Af Amer) BUN/Creatinine Ratio Glucose POC Glucose (mg/dL) 121 H 121 H Calcium 01/16/18 01/16/18 01/16/18 12:50 17:15 21:32 WBC RBC Hgb Hct MCV MCH MCHC RDW Plt Count MPV Neut % (Auto) Lymph % (Auto) [place] % (Auto) Eos % (Auto) Baso % (Auto) Absolute Neuts (auto) Absolute Lymphs (auto) Absolute Monos (auto) Absolute Eos (auto) Absolute Basos (auto) Absolute Nucleated RBC Nucleated RBC % INR (Anticoag Therapy) APTT Sodium Potassium Chloride Carbon Dioxide Anion Gap BUN Creatinine Est GFR ( Amer) Est GFR (Non-Af Amer) BUN/Creatinine Ratio Glucose POC Glucose (mg/dL) 140 H 80 62 L Calcium 01/16/18 01/17/18 01/17/18 22:19 05:54 05:54 WBC 9.1 RBC 3.24 L Hgb 8.9 L Hct 27 L MCV 82 MCH 28 MCHC 34 RDW 16 H Plt Count 362 MPV 8.5 Neut % (Auto) 74.3 Lymph % (Auto) 12.4 L [place] % (Auto) 12.6 H Eos % (Auto) 0.6 Baso % (Auto) 0.1 Absolute Neuts (auto) 6.8 Absolute Lymphs (auto) 1.1 Absolute Monos (auto) 1.2 H Absolute Eos (auto) 0.1 Absolute Basos (auto) 0 Absolute Nucleated RBC 0 Nucleated RBC % 0 INR (Anticoag Therapy) APTT Sodium 137 Potassium 3.9 Chloride 107 Carbon Dioxide 18 L Anion Gap 12 H BUN 73 H Creatinine 2.97 H Est GFR ( Amer) 25.2 Est GFR (Non-Af Amer) 20.9 BUN/Creatinine Ratio 24.6 H Glucose 50 L POC Glucose (mg/dL) 93 Calcium 8.5 L Assessment - Problem List Assessment: Patient Problems Complex partial seizure (Acute) Extra-axial brain tumor (Acute) H/O craniotomy (Acute) 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) Stage 4 chronic kidney disease (Acute) UTI (urinary tract infection) (Acute) Afib (Chronic) Anemia (Chronic) Chronic indwelling Burgess catheter (Chronic) DVT prophylaxis (Chronic) Diabetes mellitus with insulin therapy (Chronic) History of osteomyelitis (Chronic) History of prostate cancer (Chronic) Hyperlipidemia (Chronic) Lumbar spinal stenosis (Chronic) Nephrolithiasis (Chronic) Paroxysmal atrial fibrillation (Chronic) Restless legs (Chronic) S/P laminectomy (Chronic) Status post total hip replacement, right (Chronic) Type 2 diabetes mellitus (Chronic) Plan: Complex partial seizure (Acute)Extra-axial brain tumor (Acute)H/O craniotomy ( Acute)Paralysis of left upper extremity (Acute)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 He has no post surgical complications. I have discussed his case in person with Dr. Infante, he would like a consultation with Dr. Lancaster for radiotherapy prior to discharge Stage 4 chronic kidney disease (Acute) He is stable UTI (urinary tract infection) (Acute) This is treated. Afib (Chronic) DVT prophylaxis (Chronic) He requires anticoagulation for this and for his recent DVT. I prefer warfarin to fractionated heparin after surgery. I will start him on warfarin. Anemia (Chronic) Stable Chronic indwelling Burgess catheter (Chronic) ongoing Diabetes mellitus with insulin therapy (Chronic) he was hypoglycemic this morning. I will reduce his insulin and progress his diet I discussed the above with the patient and with his and daughter. They agree with the mangagement plan.
--- NOTE | 2018-01-17 07:52 | PN ---
Progress Note - Progress Note Date of Service: 01/17/18 SOAP: Subjective: []POD # 2 Doing well Wound OK Some incisional discomfort Objective: []LUE remains very weak Path consistent with prostatic met Assessment: []Satis post op course Plan: []Discussed with Dr. Lancaster who will see today Plan d/c in am
[2018-01-17] MEDS: Docusate CAP* 100 MG PO SCH ×2 (08:54→21:54)
[2018-01-17] MEDS: Ascorbic Acid TAB* 500 MG PO SCH (08:54)
[2018-01-17] MEDS: Ferrous Sulfate TAB* 325 MG PO SCH (08:55)
[2018-01-17] MEDS: levETIRAcetam TAB* 500 MG PO SCH ×2 (08:55→21:54)
[2018-01-17] MEDS: oxyCODONE TAB* 5 MG TAB PO PRN ×3 (08:55→21:53)
[2018-01-17] MEDS: Heparin VIAL(*) 5000 UNITS/ML VIAL (FIVE THOUSAND) SUBCUT SCH ×2 (08:56→22:00)
[2018-01-17] MEDS: Insulin GLARGINE(*) 1 UNITS UNIT SUBCUT SCH (08:56)
[2018-01-17] MEDS: Insulin LISPRO* 1 UNITS UNIT SUBCUT SCH ×4 (10:12→19:37)
[2018-01-17] MEDS: Chlorthalidone TAB* 50 MG PO SCH ×2 (10:13→11:02)
[2018-01-17] MEDS ORDERED: Warfarin TAB(*) 7.5 MG PO ONE (17:00)
--- NOTE | 2018-01-17 19:07 | RAD ---
INDICATION: Left arm weakness COMPARISON: CT brain January 16, 2018 TECHNIQUE: Noncontrast axial source images were acquired from the skull base to the vertex. FINDINGS: Ventricles/sulci: The ventricles and cisterns are normal in size and configuration for age. Widely patent basilar cisterns. Brain parenchyma: There are parenchymal changes at the craniotomy site. These are stable. There is underlying vasogenic edema. Intracranial hemorrhage:None. Extra-axial spaces: There is a tiny amount of pneumocephalus at the craniotomy site. Calvarium: Right frontal craniotomy defect. Scalp: Soft tissue changes at the craniotomy defect. Paranasal sinuses/mastoid: Minor ethmoid sinusitis. Other: None. IMPRESSION: Postsurgical changes with right frontal craniotomy defect. Vasogenic edema in the right frontal lobe appears unchanged. Small amount of the pneumocephalus, unchanged.
--- NOTE | 2018-01-17 19:52 | PN ---
Progress Note - Progress Note Date of Service: 01/17/18 Note: Patient reported to have increased weakness of LUE during ambulation earlier. CT revealed mild increase in edema in resection area. No hematoma. Exam; AAOx3, FANNIE, CN II-XII grossly intact. Motor Arturo to commands 4/5 except LUE 0/5 Sensory grossly intact to light touch. Will add Decadron IV. Monitor BG. Consider ISS per IM if needed. Indra Adair MD
[2018-01-17] MEDS ORDERED: Dexamethasone IV* 4 MG in NS 0.9% 50 ML* 50 ML IVPB SCH (20:00)
[2018-01-17] MEDS ORDERED: Dexamethasone IV* 4 MG/ML 1 ML (4 MG) IV SLOW PU SCH (20:00)
[2018-01-17] MEDS: Diltiazem CD CAP* 240 MG PO SCH (21:54)
[2018-01-17] MEDS: Atorvastatin* 40 MG TAB PO SCH (21:54)
[2018-01-17] MEDS: traZODone TAB* 50 MG TAB PO SCH (21:54)
[2018-01-17] MEDS: Omeprazole CAP* 20 MG PO SCH (21:54)
[2018-01-18] MEDS: Dexamethasone IV* 4 MG/ML 1 ML (4 MG) IV SLOW PU SCH ×4 (04:32→21:52)
[2018-01-18] MEDS: oxyCODONE TAB* 5 MG TAB PO PRN ×2 (04:33→21:51)
[2018-01-18] MEDS: Acetaminophen TAB* 325 MG PO PRN ×2 (04:33→21:51)
[2018-01-18 06:01] LABS: Hematocrit 26 % (42-52); Hemoglobin 8.5 g/dl (14.0-18.0); Mean Platelet Volume 8.6 um3 (7.4-10.4); Platelet Count 296 10^3/ul (150-450)
[2018-01-18] MEDS ORDERED: Insulin LISPRO* 1 UNITS UNIT SUBCUT ONE ×3 (06:30→18:27)
[2018-01-18] MEDS ORDERED: Insulin GLARGINE(*) 1 UNITS UNIT SUBCUT ONE (06:30)
[2018-01-18] MEDS: Insulin GLARGINE(*) 1 UNITS UNIT SUBCUT SCH ×2 (07:11→18:18)
--- NOTE | 2018-01-18 07:22 | PN ---
Subjective - Subjective Reason for Note: Progress Note History: He had more weakness in his left hand yesterday evening - unable to move it. We started him back on dexamethasone overnight. This morning he has hyperglycemia. He is able to move his fingers and thumb on the left hand, but not flex/extend his wrist. Otherwise, he is aware of no new deficits. He had diarrhea x 3 last night with incontinence, but none yet this morning. He had some pain over the craniotomy, but this was eased with analgesia. He has no chest pain, dyspnea, palpitations, cough or sputum. He has no nausea/ vomiting. 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 Diabetes mellitus with insulin therapy (Chronic) E11.9, Z79.4 - Hold oral DM meds - FSBG ACHS with Lispro SS - Lantus increased last night but sugar remains high, will increase to 20 units tonight History of osteomyelitis (Chronic) Z87.39 History of prostate cancer (Chronic) Z85.46 Hyperlipidemia (Chronic) E78.5 - statin Lumbar spinal stenosis (Chronic) M48.06 Nephrolithiasis (Chronic) N20.0 Paroxysmal atrial fibrillation (Chronic) I48.0 - Rate and rhythm regular - Continue cardizem and coumadin Restless legs (Chronic) S/P laminectomy (Chronic) Z98.890 Status post total hip replacement, right (Chronic) Z96.641 - POD2 - POC as per ortho service - Continue DVT prophy with coumadin bridge - Pain control, bowel regimen, OOB with PT/OT Type 2 diabetes mellitus (Chronic) Current Medications: Current Medications Acetaminophen (Tylenol Tab*) 650 mg PO Q4H PRN PRN Reason: FEVER/PAIN Last Admin: 01/18/18 04:33 Dose: 650 mg Al Hydrox/Mg Hydrox/Simethicone (Maalox Plus*) 30 ml PO Q6H PRN PRN Reason: INDIGESTION Albuterol (Ventolin 2.5 Mg/3 Ml Neb.Gertrude*) 2.5 mg INH RT.[id number] AWAKE PRN PRN Reason: sob/wheezing Ascorbic Acid (Vitamin C Tab*) 500 mg PO 0900 [facility] Last Admin: 01/17/18 08:54 Dose: 500 mg Atorvastatin Calcium (Lipitor*) 40 mg PO BEDTIME [facility] Last Admin: 01/17/18 21:54 Dose: 40 mg Chlorthalidone (Hygroton Tab*) 25 mg PO 0900 [facility] Last Admin: 01/17/18 11:02 Dose: 25 mg Dexamethasone Sodium Phosphate (Decadron Iv*) 4 mg IV SLOW PU 0400,1000,1600, 2200 [facility] Last Admin: 01/18/18 04:32 Dose: 4 mg Dextrose (D50w Syringe 50 Ml*) 12.5 gm IV PUSH .FOR FS < 60 - SS PRN PRN Reason: FS < 60 Diltiazem HCl (Cardizem Cd Cap*) 240 mg PO BEDTIME [facility] Last Admin: 01/17/18 21:54 Dose: 240 mg Docusate Sodium (Colace Cap*) 100 mg PO 0900,2100 [facility] Last Admin: 01/17/18 21:54 Dose: 100 mg Ferrous Sulfate (Ferrous Sulfate Tab*) 325 mg PO 0900 [facility] Last Admin: 01/17/18 08:55 Dose: 325 mg Glipizide (Glucotrol Tab*) 10 mg PO 0800,1700 [facility] Last Admin: 01/17/18 17:18 Dose: 10 mg Heparin Sodium (Porcine) (Heparin Vial(*)) 5,000 units SUBCUT Q12HR [facility] Last Admin: 01/17/18 22:00 Dose: 5,000 units Insulin Glargine (Lantus(*)) 10 units SUBCUT Q24H [facility] Last Admin: 01/18/18 07:11 Dose: Not Given Levetiracetam (Keppra Tab*) 1,000 mg PO 0900,2100 [facility] Last Admin: 01/17/18 21:54 Dose: 1,000 mg Magnesium Hydroxide (Milk Of Magndiane Liq*) 30 ml PO Q4H PRN PRN Reason: CONSTIPATION Melatonin (Melatonin) 3 mg PO BEDTIME PRN; Protocol PRN Reason: Sleep Last Admin: 01/11/18 22:01 Dose: 3 mg Omeprazole (Prilosec Cap*) 20 mg PO BEDTIME [facility] Last Admin: 01/17/18 21:54 Dose: 20 mg Ondansetron HCl (Zofran Inj*) 4 mg IV Q4H PRN PRN Reason: NAUSEA/VOMITING Oxycodone HCl (Roxycodone Tab*) 5 mg PO Q6H PRN PRN Reason: HEADACHE/DISCOMFORT Last Admin: 01/18/18 04:33 Dose: 5 mg Pharmacy Profile Note (Coumadin Per Pharmacy*) 0 note FOLLOW UP .PER PHARMACY PROTOC [facility]; Protocol Trazodone HCl (Desyrel Tab*) 50 mg PO BEDTIME [facility] Last Admin: 01/17/18 21:54 Dose: 50 mg Home Medications: Home Medications Medication Instructions Recorded Confirmed Type Ascorbic Acid TAB* [Vitamin C 500 mg PO DAILY 12/12/17 01/08/18 History TAB*] Atorvastatin* [Lipitor*] 40 mg PO BEDTIME 12/12/17 01/08/18 History Chlorthalidone TAB* [Hygroton TAB*] 25 mg PO QAM 12/12/17 01/08/18 History Enoxaparin(*) [Lovenox(*)] 100 mg SUBCUT Q12HR #16 syringe 12/12/17 01/08/18 Rx Ferrous Sulfate TAB* 325 mg PO DAILY 12/12/17 01/08/18 History Insulin NPH Human Isophane 14 unit SUBCUT BEDTIME 12/12/17 01/08/18 History [Humulin N Kwikpen] Multivit-Mins/Iron/Folic/Lycop 1 tab PO DAILY 12/12/17 01/08/18 History [Centrum Ultra Mens] Omeprazole CAP* [Prilosec CAP* 20 20 mg PO BEDTIME 12/12/17 01/08/18 History MG] Warfarin TAB(*) [Coumadin TAB(*)] 3 mg PO EVERY OTHER DAY 12/12/17 01/08/18 History Warfarin TAB(*) [Coumadin TAB(*)] 4 mg PO EVERY OTHER DAY 12/12/17 01/08/18 History dilTIAZem HCl [Cartia Xt] 240 mg PO BEDTIME 12/12/17 01/08/18 History glipiZIDE TAB* [Glucotrol TAB*] 10 mg PO BID 12/12/17 01/08/18 History traMADol TAB* [Ultram*] 50 mg PO Q4H PRN MDD 6 tablets 12/12/17 01/08/18 History traZODone TAB* [Desyrel TAB*] 50 mg PO BEDTIME 12/12/17 01/08/18 History Allergies: Allergies Allergy/AdvReac Type Severity Reaction Status Date / Time codeine Allergy tongue Verified 01/08/18 10:55 swells hydrochlorothiazide Allergy increased Verified 01/08/18 10:55 [From Zestoretic] bun/ cr indapamide Allergy hypotension Verified 01/08/18 10:55 lisinopril Allergy Rash Verified 01/08/18 10:55 Objective - Vital Signs Vital Signs: Vital Signs 01/17/18 01/17/18 01/17/18 08:00 08:55 11:40 Temperature 97.4 F Pulse Rate 78 Respiratory 18 18 17 Rate Blood Pressure 147/65 (mmHg) O2 Sat by Pulse 99 Oximetry 01/17/18 01/17/18 01/17/18 12:46 15:03 15:16 Temperature 97.7 F Pulse Rate 81 Respiratory 18 18 16 Rate Blood Pressure 134/69 (mmHg) O2 Sat by Pulse 100 Oximetry 01/17/18 01/17/18 01/17/18 19:23 19:26 20:13 Temperature Pulse Rate 77 Respiratory 20 20 16 Rate Blood Pressure 133/57 (mmHg) O2 Sat by Pulse 100 Oximetry 01/17/18 01/17/18 01/17/18 20:21 21:53 22:20 Temperature 97.5 F 97.7 F Pulse Rate 78 Respiratory 24 24 Rate Blood Pressure 146/57 (mmHg) O2 Sat by Pulse 98 Oximetry 01/17/18 01/18/18 01/18/18 23:35 00:32 04:33 Temperature 97.5 F Pulse Rate 74 Respiratory 16 20 18 Rate Blood Pressure 139/46 (mmHg) O2 Sat by Pulse 97 Oximetry 01/18/18 01/18/18 04:35 06:35 Temperature 97.7 F Pulse Rate 74 Respiratory 16 16 Rate Blood Pressure 138/56 (mmHg) O2 Sat by Pulse 98 Oximetry - Intake and Output Intake and Output: Intake & Output 01/15/18 01/16/18 01/17/18 01/18/18 11:59 11:59 11:59 11:59 Intake Total 4761 2582 2500 1065 Output Total 2500 3235 3035 1700 Balance 2261 -653 -535 -635 Weight 201 lb 6.4 oz 207 lb 10.807 oz 199 lb 11.2 oz 202 lb 4.8 oz Intake: IV Fluids 1932 141 ABX - LEVOFLOXACIN 50 D5W 1/2 NS 382 141 Lact RIngers 1500 IVPB 946 D5W 1/2 NS 946 Heparin 1019 Oral 1810 1495 2500 1065 Output: QUOC #1 125 Urine 700 Burgess 1750 3110 3035 1700 Estimated Blood Loss 50 Other: # Bowel Movements 1 Estimated Stool Amount Small Small Large ADLs: Meal Record Start: 01/08/18 16: 04 Freq: DAILY@0900,1400,1800 Status: Complete Protocol: Created 01/08/18 16:04 System (Rec: 01/08/18 16:04 System TELE-M12) Document 01/08/18 18:00 [id number] (Rec: 01/08/18 21:37 UKC4752 TELE-C10) Document 01/09/18 09:00 EJL1751 (Rec: 01/09/18 10:14 ZQY6776 TELE-C03) Document 01/09/18 14:00 SGI9053 (Rec: 01/09/18 14:05 MLV9326 TELE-M02) Document 01/09/18 17:40 ZYR1628 (Rec: 01/09/18 17:40 TELE-C08) Document 01/10/18 09:00 DPN2545 (Rec: 01/10/18 10:33 GSW0302 TELE-C01) Document 01/10/18 14:00 FZM5830 (Rec: 01/10/18 14:14 ITI8697 TELE-C01) Document 01/10/18 17:24 ZFE0945 (Rec: 01/10/18 17:25 UTG3650 TELE-C08) Document 01/11/18 09:00 QCO0902 (Rec: 01/11/18 10:37 YBB7725 TELE-C11) Document 01/11/18 14:00 SJA7640 (Rec: 01/11/18 14:38 YYO0864 TELE-C03) Document 01/11/18 17:39 UXF3518 (Rec: 01/11/18 17:39 GNR1740 TELE-C08) Document 01/12/18 09:00 DFW0868 (Rec: 01/12/18 09:57 XVL8970 TELE-C03) Document 01/12/18 14:00 ALB1490 (Rec: 01/12/18 14:33 CXK4011 TELE-C03) Document 01/12/18 17:54 MRF6281 (Rec: 01/12/18 17:55 POH6671 TELE-C10) Document 01/13/18 09:00 JQA8827 (Rec: 01/13/18 09:41 YZD4023 TELE-C05) Document 01/13/18 13:52 STP8228 (Rec: 01/13/18 13:54 BXJ0341 TELE-C11) Document 01/13/18 21:57 IQU6592 (Rec: 01/13/18 21:57 JIB2908 TELE-C13) Document 01/14/18 09:00 BZV0674 (Rec: 01/14/18 11:21 SER3120 TELE-C11) Document 01/14/18 13:18 WDW2830 (Rec: 01/14/18 13:18 SYZ1994 TELE-C11) Document 01/14/18 22:21 KHR1284 (Rec: 01/14/18 22:21 RAX0037 TELE-C11) ADLs: Meal Record Start: 01/15/18 11: 55 Freq: ,,18 Status: Complete Protocol: Created 01/15/18 11:55 PBC8432 (Rec: 01/15/18 11:55 FWM6573 ISDEMO-M03 ) Document 01/15/18 13:00 HLU6870 (Rec: 01/15/18 15:02 YCE4279 ICU-C16) Document 01/15/18 18:00 ATU7930 (Rec: 01/15/18 18:06 PLT7012 ICU-C16) Document 07/17/18 09:02 QFP4737 (Rec: 01/16/18 09:02 MEV5398 ICU-C16) ADLs: Meal Record Start: 01/16/18 13: 35 Freq: ,,18 Status: Active Protocol: Created 01/16/18 13:35 WPK3958 (Rec: 01/16/18 13:35 AYG9194 ICU-C10) Document 01/16/18 18:00 MDL5245 (Rec: 01/16/18 18:07 RFW2611 SSU-C10) Document 01/17/18 09:00 OIQ2756 (Rec: 01/17/18 09:21 ZZA0152 SSU-C01) Document 01/17/18 13:00 CRZ1419 (Rec: 01/17/18 13:48 IKS8863 SSU-C01) Intake and Output Start: 01/08/18 10: 55 Freq: Status: Active Protocol: Created 01/08/18 10:55 System (Rec: 01/08/18 10:55 System ED-C24) Intake and Output Start: 01/08/18 16: 04 Freq: DAILY@0600,1400,2200 Status: Complete Protocol: Created 01/08/18 16:04 System (Rec: 01/08/18 16:04 System TELE-M12) Document 01/08/18 22:00 TWZ5708 (Rec: 01/08/18 23:33 ANH0739 TELE-C10) Document 01/09/18 00:46 QFQ8404 (Rec: 01/09/18 00:46 FFB5734 TELE-C08) Document 01/09/18 06:00 CDH6892 (Rec: 01/09/18 06:28 RJC0516 TELE-C01) Document 01/09/18 14:00 QHB1706 (Rec: 01/09/18 14:05 UBY5442 TELE-M02) Document 01/09/18 15:05 NSR7475 (Rec: 01/09/18 15:05 WSJ6296 TELE-C07) Document 01/09/18 22:00 YTW6454 (Rec: 01/09/18 22:42 WON6552 TELE-C11) Document 01/10/18 03:49 LFD3141 (Rec: 01/10/18 03:49 TWA5211 TELE-C08) Document 01/10/18 06:00 FXN8754 (Rec: 01/10/18 06:52 GWW7877 TELE-C11) Document 01/10/18 14:00 MSO1665 (Rec: 01/10/18 14:14 PAT4384 TELE-C01) Document 01/10/18 21:47 CAA7125 (Rec: 01/10/18 21:48 BQN6468 TELE-C11) Document 01/10/18 22:00 TNS5296 (Rec: 01/10/18 22:01 GVW6441 TELE-C11) Document 01/10/18 22:02 QBO2519 (Rec: 01/10/18 22:02 VQT0064 TELE-C09) Document 01/11/18 06:00 BAT4514 (Rec: 01/11/18 06:13 BRU7533 TELE-C35) Document 01/11/18 06:17 QMV8126 (Rec: 01/11/18 06:18 JPS2521 TELE-C35) Document 01/11/18 14:00 JDI8410 (Rec: 01/11/18 14:38 GYW9630 TELE-C03) Document 01/11/18 21:41 DZC0828 (Rec: 01/11/18 21:43 EOO5520 TELE-C10) Document 01/12/18 05:37 DZP9918 (Rec: 01/12/18 05:40 FHK4052 [id number]) Document 01/12/18 06:23 MRG7838 (Rec: 01/12/18 06:23 EDQ1713 TELE-C11) Document 01/12/18 09:57 QGW1625 (Rec: 01/12/18 09:57 OFX3600 TELE-C03) Document 01/12/18 14:00 OHW1092 (Rec: 01/12/18 14:33 CZI1870 TELE-C03) Document 01/12/18 22:00 ONP8139 (Rec: 01/12/18 22:17 OVQ8400 TELE-C03) Document 01/13/18 06:00 HYB1700 (Rec: 01/13/18 06:59 2011CITRIX08) Document 01/13/18 13:52 BND8441 (Rec: 01/13/18 13:54 ETM6691 TELE-C11) Document 01/13/18 22:08 JHA6713 (Rec: 01/13/18 22:10 BMJ3613 TELE-C13) Document 01/14/18 04:13 YTK5374 (Rec: 01/14/18 04:13 MGJ1303 TELE-M07) Document 01/14/18 06:50 ISN3907 (Rec: 01/14/18 06:50 RYE6915 TELE-C02) Document 01/14/18 14:00 JDS3603 (Rec: 01/14/18 15:16 MIN4245 TELE-C11) Document 01/14/18 22:22 TRS9459 (Rec: 01/14/18 22:22 RKB1065 TELE-C11) Document 01/14/18 22:27 KQG6739 (Rec: 01/14/18 22:28 VDD8104 TELE-C11) Document 01/15/18 04:44 IXM3332 (Rec: 01/15/18 04:46 ZEQ0220 TELE-C03) Intake and Output Start: 01/15/18 11: 55 Freq: Q1HR Status: Complete Protocol: Created 01/15/18 11:55 RWQ0975 (Rec: 01/15/18 11:55 DLU2556 ISDEMO-M03 ) Document 01/15/18 12:00 MYB1913 (Rec: 01/15/18 12:25 BDR2409 ISDEMO-M03 ) Document 01/15/18 13:00 VAY1144 (Rec: 01/15/18 13:12 AFG9614 ICU-C16) Document 01/15/18 14:24 DUJ7434 (Rec: 01/15/18 14:24 HVN8838 ICU-C16) Document 01/15/18 14:46 CKR3620 (Rec: 01/15/18 14:46 RKS6416 ISDEMO-M03 ) Document 01/15/18 15:00 NKG3604 (Rec: 01/15/18 15:02 KZU1956 ICU-C16) Document 01/15/18 16:00 XUB0220 (Rec: 01/15/18 16:13 FMI2020 ICU-C16) Document 01/15/18 16:58 UMM7207 (Rec: 01/15/18 16:58 CJX0872 ISDEMO-M03 ) Document 01/15/18 17:59 TCE4824 (Rec: 01/15/18 17:59 MPW9526 ISDEMO-M03 ) Document 01/15/18 18:07 KOK7242 (Rec: 01/15/18 18:09 SQQ2919 ICU-C16) Document 01/15/18 19:00 YDY7440 (Rec: 01/15/18 19:36 DMW2302 ICU-L03) Document 01/15/18 22:00 WXW2588 (Rec: 01/15/18 22:08 GRK6719 ICU-C15) Document 01/15/18 22:00 HDC4050 (Rec: 01/16/18 00:00 NSW5633 ICU-C15) Document 01/15/18 22:09 SGC2823 (Rec: 01/15/18 22:09 VMW9185 ICU-C15) Document 01/15/18 23:47 LRB2929 (Rec: 01/15/18 23:47 YES8312 ICU-C16) Document 01/16/18 00:37 IOZ7733 (Rec: 01/16/18 00:38 MDV4163 ICU-C15) Document 01/16/18 01:47 GBX7430 (Rec: 01/16/18 01:47 ZHY5081 ICU-C16) Document 01/16/18 02:00 BIX0627 (Rec: 01/16/18 02:28 HXT9411 ICU-C15) Document 01/16/18 03:00 RSM7827 (Rec: 01/16/18 03:26 MZW0985 ISDEMO-M03 ) Document 01/16/18 04:00 ZNH0103 (Rec: 01/16/18 04:33 DFK6003 ISDEMO-M03 ) Document 01/16/18 05:00 URQ4288 (Rec: 01/16/18 05:16 BPA0698 ICU-C15) Document 01/16/18 06:00 BXU9117 (Rec: 01/16/18 06:47 UQW9198 ICU-C16) Document 01/16/18 08:00 NHC2555 (Rec: 01/16/18 09:53 OCA7206 ICU-C10) Document 01/16/18 09:00 ARX0671 (Rec: 01/16/18 09:53 UHQ8031 ICU-C10) Document 01/16/18 10:00 EBL9183 (Rec: 01/16/18 10:00 LLK4987 ISDEMO-M03 ) Document 01/16/18 10:57 YOC7291 (Rec: 01/16/18 10:58 IJP9433 ISDEMO-M03 ) Document 01/16/18 12:00 VCQ1740 (Rec: 01/16/18 12:51 RFL0036 ISDEMO-M03 ) Document 01/16/18 12:51 XXK9791 (Rec: 01/16/18 12:51 PEB0770 ISDEMO-M03 ) Intake and Output Start: 01/16/18 13: 35 Freq: DAILY@0600,1400,2200 Status: Active Protocol: Created 01/16/18 13:35 NSN7133 (Rec: 01/16/18 13:35 VRQ4029 ICU-C10) Document 01/16/18 14:28 HUJ5808 (Rec: 01/16/18 14:28 UVA6556 ICU-C10) Document 01/16/18 21:20 SMQ8872 (Rec: 01/16/18 21:20 SSU-C02) Document 01/17/18 03:48 ZEY5442 (Rec: 01/17/18 03:49 WAR1634 [id number]) Document 01/17/18 06:00 JBT0413 (Rec: 01/17/18 06:19 JWY0277 SSU-C02) Document 01/17/18 13:48 SRS6224 (Rec: 01/17/18 13:48 MTJ2331 SSU-C01) Document 01/17/18 22:26 OEW1857 (Rec: 01/17/18 22:27 PUQ3523 SSU-L02) Document 01/17/18 22:59 BJZ1942 (Rec: 01/17/18 22:59 OWT9671 SSU-L02) Document 01/18/18 05:50 FIE8050 (Rec: 01/18/18 05:51 WDA9406 [id number]) - Physical Exam General: No Cyanosis, Yes Anemia, No Jaundice, No Clubbing Lungs and Chest: Yes: Chest Expansion Full, Chest Expansion Symetrica, Percussion Note Resonant, Vessicular Breath Sounds. No: Crackles, Wheezes Heart Rate and Rhythm: Regular Additional Cardiovascular: Yes: Normal Heart Sounds. No: Heart Murmur, Pedal Edema Abdominal Exam: Yes: Soft, Bowel Sounds Present. No: Distention, Abdominal Mass , Abdominal Tenderness - Extremities Cranial Nerves II-XII Intact: Yes Limbs: Abnormal Power - He can move his fingers and thumb left hand, but weak. No wrist movt. Left arm otherwise paralysed. Left leg normal - Neuro Orientation: A/O x3 Speech: Normal Results - Results Lab Results: Laboratory Results - last 24 hr 01/17/18 01/17/18 01/17/18 05:54 07:33 12:24 Hgb Hct Plt Count MPV INR (Anticoag Therapy) Sodium 137 Potassium 3.9 Chloride 107 Carbon Dioxide 18 L Anion Gap 12 H BUN 73 H Creatinine 2.97 H Est GFR ( Amer) 25.2 Est GFR (Non-Af Amer) 20.9 BUN/Creatinine Ratio 24.6 H Glucose 50 L POC Glucose (mg/dL) 73 134 H Calcium 8.5 L 01/17/18 01/17/18 01/17/18 16:44 22:02 23:41 Hgb Hct Plt Count MPV INR (Anticoag Therapy) Sodium Potassium Chloride Carbon Dioxide Anion Gap BUN Creatinine Est GFR ( Amer) Est GFR (Non-Af Amer) BUN/Creatinine Ratio Glucose POC Glucose (mg/dL) 68 L 118 H 149 H Calcium 01/18/18 01/18/18 01/18/18 05:28 05:28 06:22 Hgb 8.5 L Hct 26 L Plt Count 296 MPV 8.6 INR (Anticoag Therapy) 1.00 Sodium Potassium Chloride Carbon Dioxide Anion Gap BUN Creatinine Est GFR ( Amer) Est GFR (Non-Af Amer) BUN/Creatinine Ratio Glucose POC Glucose (mg/dL) 383 H Calcium Radiology Results: Patient Name: MARKIE MONTILLA Medical Record#: [id number] Ordering Physician: Teddy Adair MD Acct.#: [id number] : 1945 Age: 72 Sex: M Location: SURGICAL STAY UNIT Exam Date: 01/17/181740 ADM Status: ADM IN Order Information: CT BRAIN WO Accession Number: [id number] CPT: 12641 INDICATION: Left arm weakness COMPARISON: CT brain January 16, 2018 TECHNIQUE: Noncontrast axial source images were acquired from the skull base to the vertex. FINDINGS: Ventricles/sulci: The ventricles and cisterns are normal in size and configuration for age. Widely patent basilar cisterns. Brain parenchyma: There are parenchymal changes at the craniotomy site. These are stable. There is underlying vasogenic edema. Intracranial hemorrhage:None. Extra-axial spaces: There is a tiny amount of pneumocephalus at the craniotomy site. Calvarium: Right frontal craniotomy defect. Scalp: Soft tissue changes at the craniotomy defect. Paranasal sinuses/mastoid: Minor ethmoid sinusitis. Other: None. IMPRESSION: Postsurgical changes with right frontal craniotomy defect. Vasogenic edema in the right frontal lobe appears unchanged. Small amount of the pneumocephalus, unchanged. <Electronically signed by Jose Phillips MD in [place]> 01/17/181903 Dictated By: Jose Phillips MD Dictated Date/Time: 01/17/181903 Transcribed Date/Time: 01/17/181858 Copy to: CC:Amando Stein MD; Loly Bronson MD; Markie Morataya MD; Mandi Ruiz MD; Kd Infante MD; Grant Lancaster MD; Teddy Adair MD This report is only to be considered final once signed by the Provider(s) as displayed in the "<Electronically Signed by >" field (s). Absence of a signature indicates the report is in a draft status and still needs to be finalized. In the event this document was created by someone other than the signing Provider, the individual initiating the document will be listed in the "Entered by:" or "Dictated by:" dodson. 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) Stage 4 chronic kidney disease (Acute) Steroid-induced hyperglycemia (Acute) UTI (urinary tract infection) (Acute) Afib (Chronic) Anemia (Chronic) Chronic indwelling Burgess catheter (Chronic) DVT prophylaxis (Chronic) Diabetes mellitus with insulin therapy (Chronic) History of osteomyelitis (Chronic) History of prostate cancer (Chronic) Hyperlipidemia (Chronic) Lumbar spinal stenosis (Chronic) Nephrolithiasis (Chronic) Paroxysmal atrial fibrillation (Chronic) Restless legs (Chronic) S/P laminectomy (Chronic) Status post total hip replacement, right (Chronic) Type 2 diabetes mellitus (Chronic) Plan: 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 A CT scan showed no change with the previous post craniotomy CT. 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 He has no sensory deficit. This is likely due to cerebral edema. We will maintain him on dexamethasone. Neurosurgery are following him. Diarrhea (Acute) 3 episodes last night that were self-limiting. He had no control and was incontient Steroid-induced hyperglycemia (Acute) I am going to return him to the previous regimen which controlled his glucose while on steroids previously Stage 4 chronic kidney disease (Acute) Ongoing UTI (urinary tract infection) (Acute) resolved I spoke with Markie and Talita Montilla and explained we need to keep him in the hospital an extra day to ensure his neurological status is stable and to establish improved glycemic control. They agreed with this.
[2018-01-18] MEDS ORDERED: Dextrose 50% Syringe 50 ML* 25 GM/50 ML SYRINGE IV PUSH PRN (07:28)
--- NOTE | 2018-01-18 08:11 | PN ---
Progress Note - Progress Note Date of Service: 01/18/18 SOAP: Subjective: [S/p right craniotomy for tumor resection, POD #3. Yesterday around 4 or 5pm the patient states he had an episode of uncontrollable LUE shaking. He needed to hold his arm down. Episode was witnessed by the patient's daughter and she states it lasted approximately 2 minutes. Reports worse weakness of LUE following event. Denies loss of consciousness, dizziness, headache, nausea. ] Objective: [ Vital Signs: Temp Pulse Resp BP Pulse Ox 97.7 F 74 18 138/56 98 01/18/18 04:35 01/18/18 04:35 01/18/18 07:26 01/18/18 04:35 01/18/18 04:35 General: Alert and laying comfortably in bed. Neuro: CN II-XII intact. LUE weakness persistent, poor spool tender but able to move fingers, wrist extension and flexion 0/5. Lower extremity strength bilaterally and RUE intact. Sensation intact and equal throughout. ] Assessment: [Stable post-op.] Plan: [1. Remain inpatient today. 2. Neurology agrees to follow up today for seizure management, Dr. Morataya contacted. 3. Possible PMRU tomorrow. 4. Continue PT today.]
[2018-01-18] MEDS: Ascorbic Acid TAB* 500 MG PO SCH (08:48)
[2018-01-18] MEDS: glipiZIDE TAB* 5 MG PO SCH ×2 (08:48→17:13)
[2018-01-18] MEDS: Docusate CAP* 100 MG PO SCH ×2 (08:49→21:50)
[2018-01-18] MEDS: levETIRAcetam TAB* 500 MG PO SCH ×2 (08:49→21:50)
[2018-01-18] MEDS: Ferrous Sulfate TAB* 325 MG PO SCH (08:49)
[2018-01-18] MEDS: Insulin LISPRO* 1 UNITS UNIT SUBCUT SCH ×4 (08:49→22:09)
[2018-01-18] MEDS: Heparin VIAL(*) 5000 UNITS/ML VIAL (FIVE THOUSAND) SUBCUT SCH ×2 (08:49→21:52)
[2018-01-18] MEDS: Chlorthalidone TAB* 50 MG PO SCH (08:54)
[2018-01-18] MEDS ORDERED: Scopolamine PATCH Remove* 1 NOTE MISC PATCH OFF ONE (09:00)
[2018-01-18] MEDS ORDERED: Warfarin TAB(*) 7.5 MG PO ONE (17:00)
[2018-01-18] MEDS ORDERED: Phenytoin CAP(*) 100 MG CAP.ER PO SCH (21:00)
[2018-01-18] MEDS: Diltiazem CD CAP* 240 MG PO SCH (21:50)
[2018-01-18] MEDS: Omeprazole CAP* 20 MG PO SCH (21:50)
[2018-01-18] MEDS: Atorvastatin* 40 MG TAB PO SCH (21:50)
[2018-01-18] MEDS: traZODone TAB* 50 MG TAB PO SCH (21:51)
[2018-01-19] MEDS: Insulin LISPRO* 1 UNITS UNIT SUBCUT SCH ×3 (00:09→10:02)
--- NOTE | 2018-01-19 03:54 | PN ---
NEUROLOGIC PROGRESS NOTE: DATE OF SERVICE: 01/18/18 HISTORY: Rupinder Cosby had asked me to stop by again because he had an episode of left upper extremity shaking that lasted 2 minutes time with some worsening of weakness following the shaking, he was awake and alert. 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 MEDICATIONS: Include 1. Keppra 1000 mg twice a day. 2. He is on oxycodone p.r.n. pain. 3. Zofran 4 mg q. 4 hours p.r.n. nausea. 4. Trazodone 50 mg at bedtime. 5. Glucotrol 10 mg twice a day. 6. Cardizem 250 mg at bedtime. 7. Dexamethasone 4 mg IV q.6 hours. 8. Lipitor 40 mg at bedtime. PHYSICAL EXAMINATION: Temperature 97.3, pulse 65, respirations 20, blood pressure 150/60. He is alert and oriented with normal speech and comprehension. Cranial nerves II through XII were intact. Motor exam reveals a dense paresis of his left arm with inability to lift the arm but ability to move fingers and wrist extension 3+/5. Chest: Clear. Cardiovascular: Regular rate and rhythm. Abdomen: Soft with positive bowel sounds. DIAGNOSTIC STUDIES: His CT scan from yesterday show postsurgical changes and vasogenic edema in his right frontal lobe, which is unchanged. Landon Montilla continues to have focal seizures on high dose of Keppra level was then sent and will need to be followed up on. He has renal insufficiency so his Keppra level may be supratherapeutic and we will sign this off to Dr. Dillon. He will be following me in the rotation and begin Dilantin 100 mg in the morning and 200 at night for breakthrough seizures while on Keppra. I am not loading him at this time, but if his seizures increase in frequency, he will need to have a loading dose of Dilantin. Thank you for sharing his case. [id number]/[facility] #: [id number] [facility]
[2018-01-19] MEDS: Dexamethasone IV* 4 MG/ML 1 ML (4 MG) IV SLOW PU SCH (04:11)
[2018-01-19] MEDS: Acetaminophen TAB* 325 MG PO PRN ×2 (04:11→08:37)
[2018-01-19] MEDS: oxyCODONE TAB* 5 MG TAB PO PRN (04:12)
[2018-01-19 05:52] LABS: ABS Basophils 0 10^3/ul (0-0.2); ABS Eosinophils 0 10^3/ul (0-0.6); ABS Lymphocytes 0.4 10^3/ul (1.0-4.8); ABS Monocytes 0.4 10^3/ul (0-0.8); ABS Neutrophils 8.1 10^3/ul (1.5-7.7); ABS Nucleated RBC 0 10^3/ul; Eosinophil % 0 % (0-6); Hematocrit 25 % (42-52); Mean Corpuscular HGB Conc 33 g/dl (31-36); Mean Corpuscular Hemoglobin 27 pg (27-31); Mean Corpuscular Volume 83 fL (80-94); Mean Platelet Volume 8.6 um3 (7.4-10.4); Nucleated Red Blood Cells % 0; Platelet Count 275 10^3/ul (150-450); Red Blood Count 2.94 10^6/ul (4.00-5.40); Red Cell Distribution Width 16 % (10.5-15); White Blood Count 8.9 10^3/ul (3.5-10.8)
[2018-01-19 05:58] LABS: INR 1.21 (0.77-1.02)
[2018-01-19] MEDS: Insulin GLARGINE(*) 1 UNITS UNIT SUBCUT SCH (06:12)
[2018-01-19 06:18] LABS: EGFR Non-African American 20.7 (>60)
--- NOTE | 2018-01-19 07:29 | PN ---
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
[2018-01-19 07:47] VITALS: BP 120/47
--- NOTE | 2018-01-19 08:31 | PN ---
Subjective - Subjective Reason for Note: Discharge Note History: I note the events of the last [address] Morataya started him on phenytoin for breakthrough seizures on levetiracetam. He has changed from IV dexamethasone to an oral dose of dexamethasone 2 mg tid. He has been accepted for inpatient rehabilitation at [facility] today. He is in no pain. He has had no further diarrhea. He has a lesion posterior on his left ear that is sore. He continues to have paralysis of his left arm - only weak movements of fingers. 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 Diabetes mellitus with insulin therapy (Chronic) E11.9, Z79.4 - Hold oral DM meds - FSBG ACHS with Lispro SS - Lantus increased last night but sugar remains high, will increase to 20 units tonight History of osteomyelitis (Chronic) Z87.39 History of prostate cancer (Chronic) Z85.46 Hyperlipidemia (Chronic) E78.5 - statin Lumbar spinal stenosis (Chronic) M48.06 Nephrolithiasis (Chronic) N20.0 Paroxysmal atrial fibrillation (Chronic) I48.0 - Rate and rhythm regular - Continue cardizem and coumadin Restless legs (Chronic) S/P laminectomy (Chronic) Z98.890 Status post total hip replacement, right (Chronic) Z96.641 - POD2 - POC as per ortho service - Continue DVT prophy with coumadin bridge - Pain control, bowel regimen, OOB with PT/OT Type 2 diabetes mellitus (Chronic) Current Medications: Current Medications Acetaminophen (Tylenol Tab*) 650 mg PO Q4H PRN PRN Reason: FEVER/PAIN Last Admin: 01/19/18 04:11 Dose: 650 mg Al Hydrox/Mg Hydrox/Simethicone (Maalox Plus*) 30 ml PO Q6H PRN PRN Reason: INDIGESTION Albuterol (Ventolin 2.5 Mg/3 Ml Neb.Gertrude*) 2.5 mg INH RT.[id number] AWAKE PRN PRN Reason: sob/wheezing Ascorbic Acid (Vitamin C Tab*) 500 mg PO 0900 [facility] Last Admin: 01/18/18 08:48 Dose: 500 mg Atorvastatin Calcium (Lipitor*) 40 mg PO BEDTIME [facility] Last Admin: 01/18/18 21:50 Dose: 40 mg Chlorthalidone (Hygroton Tab*) 25 mg PO 0900 [facility] Last Admin: 01/18/18 08:54 Dose: 25 mg Dexamethasone (Decadron Tab*) 2 mg PO TID [facility] Dextrose (D50w Syringe 50 Ml*) 12.5 gm IV PUSH .FOR FS < 60 - SS PRN PRN Reason: FS < 60 Diltiazem HCl (Cardizem Cd Cap*) 240 mg PO BEDTIME [facility] Last Admin: 01/18/18 21:50 Dose: 240 mg Docusate Sodium (Colace Cap*) 100 mg PO 0900,2100 [facility] Last Admin: 01/18/18 21:50 Dose: Not Given Ferrous Sulfate (Ferrous Sulfate Tab*) 325 mg PO 0900 [facility] Last Admin: 01/18/18 08:49 Dose: 325 mg Glipizide (Glucotrol Tab*) 10 mg PO 0800,1700 [facility] Last Admin: 01/18/18 17:13 Dose: 10 mg Heparin Sodium (Porcine) (Heparin Vial(*)) 5,000 units SUBCUT Q12HR [facility] Last Admin: 01/18/18 21:52 Dose: 5,000 units Insulin Glargine (Lantus(*)) 20 units SUBCUT Q12H [facility] Last Admin: 01/19/18 06:12 Dose: 20 units Insulin Human Lispro (Humalog*) 1 units SUBCUT [facility]; Protocol Last Admin: 01/18/18 22:09 Dose: Not Given Insulin Human Lispro (Humalog*) 0 units SUBCUT Q6HR [facility]; Protocol Last Admin: 01/19/18 06:11 Dose: 2 unit Levetiracetam (Keppra Tab*) 1,000 mg PO 0900,2100 [facility] Last Admin: 01/18/18 21:50 Dose: 1,000 mg Magnesium Hydroxide (Milk Of Magnesia Liq*) 30 ml PO Q4H PRN PRN Reason: CONSTIPATION Melatonin (Melatonin) 3 mg PO BEDTIME PRN; Protocol PRN Reason: Sleep Last Admin: 01/11/18 22:01 Dose: 3 mg Omeprazole (Prilosec Cap*) 20 mg PO BEDTIME [facility] Last Admin: 01/18/18 21:50 Dose: 20 mg Ondansetron HCl (Zofran Inj*) 4 mg IV Q4H PRN PRN Reason: NAUSEA/VOMITING Oxycodone HCl (Roxycodone Tab*) 5 mg PO Q6H PRN PRN Reason: HEADACHE/DISCOMFORT Last Admin: 01/19/18 04:12 Dose: 5 mg Pharmacy Profile Note (Coumadin Per Pharmacy*) 0 note FOLLOW UP .PER PHARMACY PROTOC [facility]; Protocol Phenytoin Sodium (Dilantin Cap(*)) 100 mg PO DAILY [facility] Phenytoin Sodium (Dilantin Cap(*)) 200 mg PO BEDTIME [facility] Last Admin: 01/18/18 21:50 Dose: 200 mg Trazodone HCl (Desyrel Tab*) 50 mg PO BEDTIME [facility] Last Admin: 01/18/18 21:51 Dose: 50 mg Home Medications: Home Medications Medication Instructions Recorded Confirmed Type Ascorbic Acid TAB* [Vitamin C 500 mg PO DAILY 12/12/17 01/08/18 History TAB*] Atorvastatin* [Lipitor*] 40 mg PO BEDTIME 12/12/17 01/08/18 History Chlorthalidone TAB* [Hygroton TAB*] 25 mg PO QAM 12/12/17 01/08/18 History Enoxaparin(*) [Lovenox(*)] 100 mg SUBCUT Q12HR #16 syringe 12/12/17 01/08/18 Rx Ferrous Sulfate TAB* 325 mg PO DAILY 12/12/17 01/08/18 History Insulin NPH Human Isophane 14 unit SUBCUT BEDTIME 12/12/17 01/08/18 History [Humulin N Kwikpen] Multivit-Mins/Iron/Folic/Lycop 1 tab PO DAILY 12/12/17 01/08/18 History [Centrum Ultra Mens] Omeprazole CAP* [Prilosec CAP* 20 20 mg PO BEDTIME 12/12/17 01/08/18 History MG] Warfarin TAB(*) [Coumadin TAB(*)] 3 mg PO EVERY OTHER DAY 12/12/17 01/08/18 History Warfarin TAB(*) [Coumadin TAB(*)] 4 mg PO EVERY OTHER DAY 12/12/17 01/08/18 History dilTIAZem HCl [Cartia Xt] 240 mg PO BEDTIME 12/12/17 01/08/18 History glipiZIDE TAB* [Glucotrol TAB*] 10 mg PO BID 12/12/17 01/08/18 History traMADol TAB* [Ultram*] 50 mg PO Q4H PRN MDD 6 tablets 12/12/17 01/08/18 History traZODone TAB* [Desyrel TAB*] 50 mg PO BEDTIME 12/12/17 01/08/18 History Allergies: Allergies Allergy/AdvReac Type Severity Reaction Status Date / Time codeine Allergy tongue Verified 01/08/18 10:55 swells hydrochlorothiazide Allergy increased Verified 01/08/18 10:55 [From Zestoretic] bun/ cr indapamide Allergy hypotension Verified 01/08/18 10:55 lisinopril Allergy Rash Verified 01/08/18 10:55 Objective - Vital Signs Vital Signs: Vital Signs 01/18/18 01/18/18 01/18/18 11:38 15:07 19:14 Temperature 99.4 F 97.3 F 98.0 F Pulse Rate 65 65 69 Respiratory 18 20 20 Rate Blood Pressure 132/56 150/60 138/62 (mmHg) O2 Sat by Pulse 99 99 99 Oximetry 01/18/18 01/18/18 01/18/18 21:51 22:10 23:46 Temperature 97.4 F Pulse Rate 66 Respiratory 18 18 18 Rate Blood Pressure 130/58 (mmHg) O2 Sat by Pulse 100 Oximetry 01/19/18 01/19/18 01/19/18 03:14 04:12 06:15 Temperature 97.7 F Pulse Rate 65 Respiratory 16 20 18 Rate Blood Pressure 144/62 (mmHg) O2 Sat by Pulse 100 Oximetry 01/19/18 07:23 Temperature 97.4 F Pulse Rate 61 Respiratory 16 Rate Blood Pressure 120/47 (mmHg) O2 Sat by Pulse 100 Oximetry - Intake and Output Intake and Output: Intake & Output 01/16/18 01/17/18 01/18/18 01/19/18 11:59 11:59 11:59 11:59 Intake Total 2582 2500 2165 1880 Output Total 3235 3035 1700 2700 Balance -653 -535 465 -820 Weight 207 lb 10.807 oz 199 lb 11.2 oz 202 lb 4.8 oz 199 lb 4 oz Intake: IV Fluids 141 D5W 1/2 NS 141 IVPB 946 D5W 1/2 NS 946 Oral 1495 2500 2165 1880 Output: QUOC #1 125 Urine 0 Burgess 3110 3035 1700 2700 Other: # Bowel Movements 1 0 Estimated Stool Amount Small Large ADLs: Meal Record Start: 01/08/18 16: 04 Freq: DAILY@0900,1400,1800 Status: Complete Protocol: Created 01/08/18 16:04 System (Rec: 01/08/18 16:04 System TELE-M12) Document 01/08/18 18:00 ZFT6696 (Rec: 01/08/18 21:37 PTP0933 TELE-C10) Document 01/09/18 09:00 RRB4978 (Rec: 01/09/18 10:14 TRE6912 TELE-C03) Document 01/09/18 14:00 AUD8152 (Rec: 01/09/18 14:05 SCH8776 TELE-M02) Document 01/09/18 17:40 ODW7179 (Rec: 01/09/18 17:40 DAA3637 TELE-C08) Document 01/10/18 09:00 QCA5495 (Rec: 01/10/18 10:33 RLY1672 TELE-C01) Document 01/10/18 14:00 UAO8613 (Rec: 01/10/18 14:14 UMX7177 TELE-C01) Document 01/10/18 17:24 BKA8245 (Rec: 01/10/18 17:25 IPC6108 TELE-C08) Document 01/11/18 09:00 UBW0181 (Rec: 01/11/18 10:37 AGD7293 TELE-C11) Document 01/11/18 14:00 CZF1115 (Rec: 01/11/18 14:38 GJM9611 TELE-C03) Document 01/11/18 17:39 ARO3234 (Rec: 01/11/18 17:39 OUE4054 TELE-C08) Document 01/12/18 09:00 XCD3863 (Rec: 01/12/18 09:57 TRA7226 TELE-C03) Document 01/12/18 14:00 CEA5901 (Rec: 01/12/18 14:33 ZXG1471 TELE-C03) Document 01/12/18 17:54 XNF1005 (Rec: 01/12/18 17:55 SYM6847 TELE-C10) Document 01/13/18 09:00 NNL5673 (Rec: 01/13/18 09:41 SDI0910 TELE-C05) Document 01/13/18 13:52 MZV6172 (Rec: 01/13/18 13:54 MAP1652 TELE-C11) Document 01/13/18 21:57 NGN2427 (Rec: 01/13/18 21:57 KDI9243 TELE-C13) Document 01/14/18 09:00 DIT2238 (Rec: 01/14/18 11:21 IYB8310 TELE-C11) Document 01/14/18 13:18 IHQ1232 (Rec: 01/14/18 13:18 CCT5448 TELE-C11) Document 01/14/18 22:21 NHG4348 (Rec: 01/14/18 22:21 IWC3690 TELE-C11) ADLs: Meal Record Start: 01/15/18 11: 55 Freq: ,,18 Status: Complete Protocol: Created 01/15/18 11:55 YEK8134 (Rec: 01/15/18 11:55 ZBD3648 ISDEMO-M03 ) Document 01/15/18 13:00 PVW2810 (Rec: 01/15/18 15:02 JLV9949 ICU-C16) Document 01/15/18 18:00 NTL1446 (Rec: 01/15/18 18:06 LYW7643 ICU-C16) Document 01/16/18 09:02 SPH2474 (Rec: 01/16/18 09:02 GCU4429 ICU-C16) ADLs: Meal Record Start: 01/16/18 13: 35 Freq: ,,18 Status: Active Protocol: Created 01/16/18 13:35 KFU1108 (Rec: 01/16/18 13:35 RKR3741 ICU-C10) Document 01/16/18 18:00 XPF5169 (Rec: 01/16/18 18:07 KXB5669 SSU-C10) Document 01/17/18 09:00 TPS7506 (Rec: 01/17/18 09:21 XCH3746 SSU-C01) Document 01/17/18 13:00 GKR2859 (Rec: 01/17/18 13:48 HRC5461 SSU-C01) Document 01/18/18 09:59 OJP2942 (Rec: 01/18/18 10:00 XYW9001 SSU-C04) Document 01/18/18 13:44 HYG3061 (Rec: 01/18/18 13:45 ZNB7515 SSU-C04) Document 01/18/18 18:13 URG9153 (Rec: 01/18/18 18:13 QQE3925 SSU-M17) Intake and Output Start: 01/08/18 10: 55 Freq: Status: Active Protocol: Created 01/08/18 10:55 System (Rec: 01/08/18 10:55 System ED-C24) Intake and Output Start: 01/08/18 16: 04 Freq: DAILY@0600,1400,2200 Status: Complete Protocol: Created 01/08/18 16:04 System (Rec: 01/08/18 16:04 System TELE-M12) Document 01/08/18 22:00 TSR0566 (Rec: 01/08/18 23:33 BSK0199 TELE-C10) Document 01/09/18 00:46 NQC1802 (Rec: 01/09/18 00:46 NLD1792 TELE-C08) Document 01/09/18 06:00 BNH2660 (Rec: 01/09/18 06:28 UZA1484 TELE-C01) Document 01/09/18 14:00 RJN5966 (Rec: 01/09/18 14:05 XYQ1065 TELE-M02) Document 01/09/18 15:05 FLP6050 (Rec: 01/09/18 15:05 BKP1239 TELE-C07) Document 01/09/18 22:00 QWG7105 (Rec: 01/09/18 22:42 BIH6643 TELE-C11) Document 01/10/18 03:49 VNT7570 (Rec: 01/10/18 03:49 JPN2424 TELE-C08) Document 01/10/18 06:00 KUK5863 (Rec: 01/10/18 06:52 NFE7736 TELE-C11) Document 01/10/18 14:00 GUL6051 (Rec: 01/10/18 14:14 TXQ8677 TELE-C01) Document 01/10/18 21:47 BWQ9246 (Rec: 01/10/18 21:48 OYD7843 TELE-C11) Document 01/10/18 22:00 OVI0030 (Rec: 01/10/18 22:01 HYD8840 TELE-C11) Document 01/10/18 22:02 EPI4120 (Rec: 01/10/18 22:02 WWC0257 TELE-C09) Document 01/11/18 06:00 ZYH7728 (Rec: 01/11/18 06:13 RZB2661 TELE-C35) Document 01/11/18 06:17 OIV4823 (Rec: 01/11/18 06:18 UQI0341 TELE-C35) Document 01/11/18 14:00 AFC3519 (Rec: 01/11/18 14:38 ZFJ5739 TELE-C03) Document 01/11/18 21:41 YFC0863 (Rec: 01/11/18 21:43 GVD2155 TELE-C10) Document 01/12/18 05:37 NUJ3619 (Rec: 01/12/18 05:40 ZTD4649 [id number]) Document 01/12/18 06:23 RFZ2662 (Rec: 01/12/18 06:23 OXO9897 TELE-C11) Document 01/12/18 09:57 SAQ6309 (Rec: 01/12/18 09:57 DWT1025 TELE-C03) Document 01/12/18 14:00 XPK1694 (Rec: 01/12/18 14:33 MAH6064 TELE-C03) Document 01/12/18 22:00 WWN3061 (Rec: 01/12/18 22:17 ZQL7514 TELE-C03) Document 01/13/18 06:00 (Rec: 01/13/18 06:59 [id number]) Document 01/13/18 13:52 ZHW2184 (Rec: 01/13/18 13:54 FOA0875 TELE-C11) Document 01/13/18 22:08 HBJ2323 (Rec: 01/13/18 22:10 KGS7463 TELE-C13) Document 01/14/18 04:13 YII2911 (Rec: 01/14/18 04:13 QUR2448 TELE-M07) Document 01/14/18 06:50 YMK5020 (Rec: 01/14/18 06:50 NGR0302 TELE-C02) Document 01/14/18 14:00 OPX1208 (Rec: 01/14/18 15:16 RIS4621 TELE-C11) Document 01/14/18 22:22 COI9750 (Rec: 01/14/18 22:22 VWF8340 TELE-C11) Document 01/14/18 22:27 FBJ2065 (Rec: 01/14/18 22:28 WVW7714 TELE-C11) Document 01/15/18 04:44 LIL3223 (Rec: 01/15/18 04:46 ELQ7680 TELE-C03) Intake and Output Start: 01/15/18 11: 55 Freq: Q1HR Status: Complete Protocol: Created 01/15/18 11:55 DGT4860 (Rec: 01/15/18 11:55 OMS9299 ISDEMO-M03 ) Document 01/15/18 12:00 ESD0287 (Rec: 01/15/18 12:25 BJA8951 ISDEMO-M03 ) Document 01/15/18 13:00 ZVX0837 (Rec: 01/15/18 13:12 UEM7905 ICU-C16) Document 01/15/18 14:24 DEU8493 (Rec: 01/15/18 14:24 RQO7643 ICU-C16) Document 01/15/18 14:46 QJU8094 (Rec: 01/15/18 14:46 VFP8635 ISDEMO-M03 ) Document 01/15/18 15:00 IWA2696 (Rec: 01/15/18 15:02 YHE2101 ICU-C16) Document 01/15/18 16:00 OVG3272 (Rec: 01/15/18 16:13 TRI5248 ICU-C16) Document 01/15/18 16:58 BQB2038 (Rec: 01/15/18 16:58 DKG0173 ISDEMO-M03 ) Document 01/15/18 17:59 UVK5967 (Rec: 01/15/18 17:59 DCY7995 ISDEMO-M03 ) Document 01/15/18 18:07 GJX4865 (Rec: 01/15/18 18:09 SDE4426 ICU-C16) Document 01/15/18 19:00 MFQ4525 (Rec: 01/15/18 19:36 RQE7096 ICU-L03) Document 01/15/18 22:00 SAB6450 (Rec: 01/15/18 22:08 POD9267 ICU-C15) Document 01/15/18 22:00 TPN4484 (Rec: 01/16/18 00:00 YOV6283 ICU-C15) Document 01/15/18 22:09 FNR4596 (Rec: 01/15/18 22:09 YBR6973 ICU-C15) Document 01/15/18 23:47 YET1343 (Rec: 01/15/18 23:47 IBD2982 ICU-C16) Document 01/16/18 00:37 CKE4270 (Rec: 01/16/18 00:38 WUF3624 ICU-C15) Document 01/16/18 01:47 PNW7611 (Rec: 01/16/18 01:47 YGK9339 ICU-C16) Document 01/16/18 02:00 EWK4709 (Rec: 01/16/18 02:28 YAR3386 ICU-C15) Document 01/16/18 03:00 GNN2077 (Rec: 01/16/18 03:26 ETM4899 ISDEMO-M03 ) Document 01/16/18 04:00 GDW0954 (Rec: 01/16/18 04:33 LIM2521 ISDEMO-M03 ) Document 01/16/18 05:00 LEA2398 (Rec: 01/16/18 05:16 OZM9438 ICU-C15) Document 01/16/18 06:00 WNG2916 (Rec: 01/16/18 06:47 LSC2018 ICU-C16) Document 01/16/18 08:00 QDS7973 (Rec: 01/16/18 09:53 HAJ8761 ICU-C10) Document 01/16/18 09:00 LVO6516 (Rec: 01/16/18 09:53 OJJ2405 ICU-C10) Document 01/16/18 10:00 MDI5285 (Rec: 01/16/18 10:00 NQQ4012 ISDEMO-M03 ) Document 01/16/18 10:57 OYS7226 (Rec: 01/16/18 10:58 IES0270 ISDEMO-M03 ) Document 01/16/18 12:00 YDP6794 (Rec: 01/16/18 12:51 PQS8948 ISDEMO-M03 ) Document 01/16/18 12:51 TPO6508 (Rec: 01/16/18 12:51 ZQQ8603 ISDEMO-M03 ) Intake and Output Start: 01/16/18 13: 35 Freq: DAILY@0600,1400,2200 Status: Active Protocol: Created 01/16/18 13:35 IFC8952 (Rec: 01/16/18 13:35 PTD6626 ICU-C10) Document 01/16/18 14:28 CYZ5540 (Rec: 01/16/18 14:28 PHL3362 ICU-C10) Document 01/16/18 21:20 VJN3831 (Rec: 01/16/18 21:20 TLG8164 SSU-C02) Document 01/17/18 03:48 XAL3571 (Rec: 01/17/18 03:49 WSJ0116 [id number]) Document 01/17/18 06:00 QVM3067 (Rec: 01/17/18 06:19 UCC8252 SSU-C02) Document 01/17/18 13:48 CGO2672 (Rec: 01/17/18 13:48 WYM1347 SSU-C01) Document 01/17/18 22:26 NFT9560 (Rec: 01/17/18 22:27 LLQ9208 SSU-L02) Document 01/17/18 22:59 YOO2284 (Rec: 01/17/18 22:59 WKV7513 SSU-L02) Document 01/18/18 05:50 WRU5690 (Rec: 01/18/18 05:51 LOK8379 [id number]) Document 01/18/18 13:44 XGT0274 (Rec: 01/18/18 13:45 EFZ3745 SSU-C04) Document 01/18/18 22:00 MIT4648 (Rec: 01/18/18 22:08 CTI0522 SSU-M17) Document 01/19/18 05:53 (Rec: 01/19/18 05:53 2011CITRIX02) Document 01/19/18 06:12 (Rec: 01/19/18 06:12 2011CITRIX02) - Physical Exam General Physical Exam Comment: He has a raised, erythematous 1.5 cm, oval lesion on posterior aspect of his left pinna. General: No Cyanosis, Yes Anemia, No Jaundice, No Clubbing Lungs and Chest: Yes: Chest Expansion Full, Chest Expansion Symetrica, Percussion Note Resonant, Vessicular Breath Sounds. No: Crackles, Wheezes Heart Rate and Rhythm: Regular Additional Cardiovascular: Yes: Normal Heart Sounds. No: Heart Murmur, Pedal Edema Abdominal Exam: Yes: Soft, Bowel Sounds Present. No: Distention, Abdominal Tenderness - Extremities Cranial Nerves II-XII Intact: Yes Limbs: Abnormal Power - Left arm flaccid paralysis, weak movts of fingers, no digital cartographic technician. 4+ weakness left hip flexion - Neuro Orientation: A/O x3 Speech: Normal Results - Results Lab Results: Laboratory Results - last 24 hr 01/18/18 01/18/18 01/18/18 12:02 12:35 17:49 WBC RBC Hgb Hct MCV MCH MCHC RDW Plt Count MPV Neut % (Auto) Lymph % (Auto) Overton % (Auto) Eos % (Auto) Baso % (Auto) Absolute Neuts (auto) Absolute Lymphs (auto) Absolute Monos (auto) Absolute Eos (auto) Absolute Basos (auto) Absolute Nucleated RBC Nucleated RBC % INR (Anticoag Therapy) Sodium Potassium Chloride Carbon Dioxide Anion Gap BUN Creatinine Est GFR ( Amer) Est GFR (Non-Af Amer) BUN/Creatinine Ratio Glucose 386 H POC Glucose (mg/dL) 416 H* 313 H Calcium 01/19/18 01/19/18 01/19/18 00:01 05:33 05:33 WBC 8.9 RBC 2.94 L Hgb 8.0 L Hct 25 L MCV 83 MCH 27 MCHC 33 RDW 16 H Plt Count 275 MPV 8.6 Neut % (Auto) 90.9 H Lymph % (Auto) 5.0 L Overton % (Auto) 4.0 Eos % (Auto) 0 Baso % (Auto) 0.1 Absolute Neuts (auto) 8.1 H Absolute Lymphs (auto) 0.4 L Absolute Monos (auto) 0.4 Absolute Eos (auto) 0 Absolute Basos (auto) 0 Absolute Nucleated RBC 0 Nucleated RBC % 0 INR (Anticoag Therapy) Sodium 135 Potassium 4.9 Chloride 108 Carbon Dioxide 16 L Anion Gap 11 BUN 86 H Creatinine 2.99 H Est GFR ( Amer) 25.0 Est GFR (Non-Af Amer) 20.7 BUN/Creatinine Ratio 28.8 H Glucose 185 H POC Glucose (mg/dL) 211 H Calcium 8.8 01/19/18 01/19/18 05:33 06:04 WBC RBC Hgb Hct MCV MCH MCHC RDW Plt Count MPV Neut % (Auto) Lymph % (Auto) Overton % (Auto) Eos % (Auto) Baso % (Auto) Absolute Neuts (auto) Absolute Lymphs (auto) Absolute Monos (auto) Absolute Eos (auto) Absolute Basos (auto) Absolute Nucleated RBC Nucleated RBC % INR (Anticoag Therapy) 1.21 H Sodium Potassium Chloride Carbon Dioxide Anion Gap BUN Creatinine Est GFR ( Amer) Est GFR (Non-Af Amer) BUN/Creatinine Ratio Glucose POC Glucose (mg/dL) 202 H Calcium Assessment - Problem List Assessment: Patient Problems Complex partial seizure (Acute) Extra-axial brain tumor (Acute) H/O craniotomy (Acute) Paralysis of left upper extremity (Acute) Pinna infection, acute (Acute) 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) Stage 4 chronic kidney disease (Acute) Steroid-induced hyperglycemia (Acute) UTI (urinary tract infection) (Acute) Afib (Chronic) Anemia (Chronic) Chronic indwelling Burgess catheter (Chronic) DVT prophylaxis (Chronic) Diabetes mellitus with insulin therapy (Chronic) History of osteomyelitis (Chronic) History of prostate cancer (Chronic) Hyperlipidemia (Chronic) Lumbar spinal stenosis (Chronic) Nephrolithiasis (Chronic) Paroxysmal atrial fibrillation (Chronic) Restless legs (Chronic) S/P laminectomy (Chronic) Status post total hip replacement, right (Chronic) Type 2 diabetes mellitus (Chronic) Plan: Extra-axial brain tumor (Acute)H/O craniotomy (Acute)Paralysis of left upper extremity (Acute) He is now taking dexamethasone 2 mg tid. He continues to have flaccid paralysis of his left arm with only weak movements of his fingers and no digital cartographic technician. His left leg may have slight upper motor neuron weakness of hip and possibly knee. 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 Lancaster and also by oncology. Dr. Lancaster can be consulted whilst in [facility] Complex partial seizure (Acute) Dr. Morataya has started him on phenytoin in addition to levetiracetam for breakthrough seizures. Stage 4 chronic kidney disease (Acute) ongoing Steroid-induced hyperglycemia (Acute) His dexamethasone has been reduced, I think his lantus will need to be reduced also. UTI (urinary tract infection) (Acute) resolved Afib (Chronic) controlled, DVT prophylaxis (Chronic) - I started him on warfarin rather than enoxaparin. We need this to become therapeutic before stopping unfractionated heparin. I note he had a DVT on warfarin before when his INR was subtherapeutic. I think we can readily control his INR on warfarin Anemia (Chronic) secondary diagnosis Chronic indwelling Burgess catheter (Chronic) Diabetes mellitus with insulin therapy (Chronic) This is a process in flux with his steroid therapy. History of osteomyelitis (Chronic) inactive History of prostate cancer (Chronic) see above Hyperlipidemia (Chronic) secondary diagnosis Lumbar spinal stenosis (Chronic) secondary diagnosis Nephrolithiasis (Chronic) secondary diagnosis Paroxysmal atrial fibrillation (Chronic) stable Restless legs (Chronic) secondary diagnosis S/P laminectomy (Chronic) Status post total hip replacement, right (Chronic) This was in October 2017 I discussed the above with the patient and 2 family members present. He is ready for discharge to [facility]. This is an ideal situation for him to safely undergo rehabilitation.
[2018-01-19] MEDS: Heparin VIAL(*) 5000 UNITS/ML VIAL (FIVE THOUSAND) SUBCUT SCH (08:34)
[2018-01-19] MEDS: glipiZIDE TAB* 5 MG PO SCH (08:35)
[2018-01-19] MEDS: Ascorbic Acid TAB* 500 MG PO SCH (08:35)
[2018-01-19] MEDS: Chlorthalidone TAB* 50 MG PO SCH (08:35)
[2018-01-19] MEDS: Ferrous Sulfate TAB* 325 MG PO SCH (08:36)
[2018-01-19] MEDS: Docusate CAP* 100 MG PO SCH (08:36)
[2018-01-19] MEDS: levETIRAcetam TAB* 500 MG PO SCH (08:37)
[2018-01-19] MEDS ORDERED: Dexamethasone TAB* 1 MG PO SCH (09:00)
[2018-01-19] MEDS ORDERED: Phenytoin CAP(*) 100 MG CAP.ER PO SCH (09:00)
--- NOTE | 2018-01-21 22:14 | DS ---
CC: Dr. Kd Infante; Dr. Landon Morataya; Dr. Isidro Cevallos; Dr. Grant Lancaster; Dr. Brennan Daniel. DISCHARGE SUMMARY: DATE OF ADMISSION: 01/08/18 DATE OF DISCHARGE: 01/19/18 DISCHARGE DIAGNOSES: 1. 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 2. Complex partial seizures. 3. Paralysis of the left upper extremity. 4. Urinary tract infection. 5. Steroid-induced hyperglycemia. COMORBIDITIES: 1. History of prostate cancer. 2. Atrial fibrillation, anticoagulation. 3. Anemia. 4. Stage 4 chronic kidney disease. SECONDARY DIAGNOSES: 1. History of episodes of osteomyelitis, inactive. 2. Type 2 diabetes mellitus with nephropathy, insulin-dependent. 3. History of renal stone disease. 4. Chronic indwelling Burgess catheter. HISTORY: Landon Montilla is a 72-year-old right-handed white male. His presentation is documented in Dr. Loly Lomax's admitting history and physical. In short, Landon Montilla has a longstanding history of prostate cancer, which was surgically removed in 2003. He has been treated by Dr. Isidro Cevallos with Lupron shots. He has a longstanding indwelling catheter. He has a history of nephrolithiasis. In addition to this, he had an elective right total hip replacement on 11/14/[address] Mandi Ruiz. This was complicated on 12/12/17. He sustained right deep venous thrombosis despite being on warfarin, which was being managed by Orthopedics. It was subtherapeutic and in consultation Dr. Brennan Daniel recommended changing him to a renal failure dose of enoxaparin. He has longstanding atrial fibrillation and has been on warfarin for that other indication long-term. He presented with a growing mass on the right scalp and a 2-day history of worsening left upper extremity weakness, becoming unable to lift his left arm. Denying numbness, headaches, dizziness, chest pain. In the emergency room, he was witnessed as having complex partial seizures by Dr. Morataya. PHYSICAL EXAMINATION: In the emergency room revealed temperature of 98.3, pulse 73, respirations 22, oxygen saturation 98% on room air, blood pressure 151 /78. There was a small area on the right side of the parietal skull just off the midline that was not tender on palpation and was raised. PERRLA. Neurological Examination: Weakness with shoulder abduction, flexion. Able to move his forearm slightly. Able to supinate and pronate left hand and move fingers. Shoulder shrug with a noticeable drop on the left side as well. Rest of the motor exam was normal. Rest of the physical examination was normal. INVESTIGATIONS: At presentation, white count 7.6, hemoglobin 8, hematocrit 25, platelets 371. Chemistry: Sodium 138, potassium 4.7, chloride 111, bicarbonate 18, BUN 76, creatinine 3.47, glucose 43, and normal LFTs. Troponin I 0.02. EKG: No ST-T wave changes. Chest x-ray: Nonfocal. Urinalysis: 3+ leukocyte esterase, 2+ protein, 1+ bacteria, indwelling Burgess catheter. CT scan of the brain: Suspicious mass 2.3 cm right frontal lobe extending into the skull. INITIAL IMPRESSION: Right frontal brain mass; complex partial seizures, which were witnessed by Dr. Morataya and started him on Keppra 1000 mg IV, referral to Neurosurgery with Dr. Kd Infante. His diabetes was managed per usual insulin management. Atrial fibrillation, continuing anticoagulation; history of deep venous thrombosis, continue on enoxaparin 1000 mg daily. CONSULTATIONS: On 01/08/18, neurological consultation, Dr. Landon Morataya, his detailed note is part of the electronic medical record. Impression: Dural- based mass high in the right frontoparietal region associated with a lesion on his scalp. On CT scan, some edema surrounding this hyperdense area with minimal mass effect. Witnessed seizure, started him on Keppra. Recommended neurosurgical consult. Neurosurgical consult, Dr. Kd Infante. This note is part of the electronic medical record. Assessment: Probable metastatic disease. Suggested MRI of the brain with contrast, CT scan of the chest, abdomen and pelvis for metastatic workup. Recommended needle biopsy of scalp lesion. PROCEDURES: On 01/15/18, right parietal craniotomy for tumor. This was performed by Dr. Kd Infante and the operative note is part of the electronic medical record. DIAGNOSTIC STUDIES/LAB DATA: Laboratory investigations: He remained anemic during his hospital stay, but his hemoglobin was maintained between 7.9 and 8.9 during this period. He had episodes of hyperglycemia associated with steroid use. Microbiology: Urine culture grew Klebsiella oxytoca, which was sensitive to levofloxacin. Imaging: On 01/09/18, brain MRI without contrast: Extraaxial mass along the right posterior frontal lobe measuring 2.5 cm in maximum dimension, mass effect on adjacent cortex with vasogenic edema, dural thickening with extension into overlying bone and into the subcutaneous soft tissues of the scalp. This had restricted diffusion consistent with densely cellular tumor. On 01/09/18, nuclear medicine bone scan: Calvarial lesion shows rapid bone turnover. No additional scintigraphic evidence of bone metastasis. On 01/16/18, postoperative CAT scan: Postsurgical change, vasogenic edema right frontal lobe. On 01/17/18, CT scan of the brain owing to loss of power in the left hand, unchanged compared with the previous day's CAT scan. Pathology: On 01/09/18, fine needle aspiration of right scalp lesion. Final diagnosis: Metastatic prostate adenocarcinoma. On 01/15/18, right parietal lobe excision, metastatic prostate adenocarcinoma 4+5 = 9, grade group 5. HOSPITAL COURSE: The initial hospital course was diagnostic and was preparation for neurosurgery. 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 We started him on dexamethasone owing to this not resolving, it made little difference to the power in his left arm. We started him also on Keppra to prevent seizures. It took several days for the evaluation to occur. During this time, we treated him with levofloxacin for his infection and changed his chronic indwelling catheter. His chronic renal failure and anemia remained constant. He underwent neurosurgery, which he tolerated well on 01/15/18 and was observed overnight in the intensive care unit. In the morning, he had slightly more strength in his left hand; however, over the next 24 hours, his hand became less strong. Repeat CT scan showed no change, so we restarted him on dexamethasone IV. He developed hyperglycemia on this, which we treated with increasing his insulin. He tolerated the neurosurgery well otherwise and was seen by Occupational Therapy and Physical Therapy, who recommended discharge to the [facility]. On the day of discharge, I note that Dr. Morataya had started him on phenytoin for the possibility of breakthrough seizures. We had reduced the IV dexamethasone to oral dexamethasone. He had weak movements of his left fingers , otherwise no movement from his upper extremity. He had been walking. PHYSICAL EXAMINATION ON THE DAY OF DISCHARGE: Temperature 97.4 degrees Fahrenheit, pulse 66, respirations 18, blood pressure 130/58, oxygen saturation by pulse oximetry on room air 100% No cyanosis, jaundice, clubbing, or adenopathy. Cardiovascular System: His pulse was regular. Heart sounds were normal. No added sounds or murmurs. No pedal edema. Respiratory System: His chest was clear. Abdomen was soft and nontender. No masses or organomegaly. Bowel sounds present. Nervous System: He was alert and oriented. Normal speech. Cranial nerves II through XII intact. Arms: He had flaccid paralysis of his left arm with only slight movement of his fingers. Right arm was normal. Sensation was normal in both arms and hands. Legs: Very subtle weakness of left hip flexion, but otherwise intact. Normal sensation. ASSESSMENT AND PLAN: 1. Metastatic prostate cancer to right frontoparietal region involving brain and scalp and also causing left-sided flaccid paralysis of the arm and perhaps some subtle weakness of his left leg. He already is receiving Lupron treatment for the prostate cancer; however, would merit a further consultation with Dr. Brennan Daniel to see whether we can add in additional hormone therapy or chemotherapy. He also is being seen by Dr. Lancaster for radiotherapy. He requires inpatient rehab to improve his independent functioning when he goes home. He remains on dexamethasone to reduce cerebral edema and is on phenytoin and levetiracetam for complex partial seizures. 2. Stage 4 renal failure. This is ongoing and was not markedly alerted by his hospital stay. 3. Type 2 diabetes mellitus with nephropathy and steroid-induced hyperglycemia. His glycemic control is good in the absence of dexamethasone. He requires increased basal insulin when he receives dexamethasone. 4. Urinary tract infection. This was resolved. 5. Atrial fibrillation. I have started him on warfarin following his neurosurgery as I was anxious about the use of fractionated heparin in a patient with stage 4 renal insufficiency who recently had a craniotomy, I wanted to minimize the chances of brain hemorrhage. In the meantime, he was on unfractionated heparin to prevent to further deep venous thromboses. I note that he has a history of deep venous thrombosis, on subtherapeutic warfarin and on this occasion I want his INR between 2 and 4. I also note that he has a history of atrial fibrillation, which is paroxysmal. 6. Anemia. This is a secondary diagnosis and was not altered during this hospital stay. 7. Chronic indwelling Burgess catheter. Clearly, he may well have some colonization by bacteria. We swopped out the Burgess and treated the dominant infection. 8. Other comorbidities were stable. These included hyperlipidemia, spinal stenosis, nephrolithiasis, history of restless legs syndrome, total right hip replacement, history of osteomyelitis. MEDICATIONS ON DISCHARGE TO [facility]: 1. Acetaminophen 650 mg q.4 hours p.r.n. pain. 2. Maalox Plus 30 mL q.6 hours p.r.n. indigestion. 3. Albuterol 2.5 mg q.4 hours p.r.n. for shortness of breath or wheezing. 4. Vitamin C 500 mg every other day. 5. Ferrous sulfate 325 mg every other day. 6. Atorvastatin 40 mg q.h.s. 7. Chlorthalidone 25 mg daily. 8. Dexamethasone 2 mg t.i.d. p.o. 9. Diltiazem 240 mg q.h.s. 10. Docusate sodium 100 mg b.i.d. p.r.n. for constipation. 11. Glipizide 10 mg twice daily before meals. 12. Unfractionated heparin 5000 units q.12 hours. 13. Glargine insulin 20 units q.12 hours. 14. Lispro insulin on a scale for correction. 15. Levetiracetam 1000 mg twice daily. 16. Milk of magnesia 30 mL q.4 hours p.r.n. for constipation. 17. Melatonin 3 mg q.h.s. p.r.n. for sleep. 18. Omeprazole 20 mg q.h.s. 19. Oxycodone 5 mg q.6 hours for headache or discomfort. 20. Phenytoin 100 mg q.a.m., 200 mg q.p.m. 21. Trazodone 50 mg q.h.s. p.r.n. for insomnia. [id number]/[facility] #: [id number] [facility] HOSPITALNina
--- NOTE | 2018-01-28 03:41 | OP ---
DATE OF OPERATION: 01/16/18 - ROOM #332 DATE OF : 43 PRIMARY SURGEON: Kd Infante MD TECHNOLOGY SUPPORT ANALYST: ELIZABETH Messer ANESTHESIA: General. PRE-OP DIAGNOSIS: Metastatic right parietal prostate carcinoma. POST-OP DIAGNOSIS: Metastatic right parietal prostate carcinoma. OPERATIVE PROCEDURE: Right parietal craniotomy with excision of right parietal metastatic prostate carcinoma. DESCRIPTION OF PROCEDURE: The patient was placed on operating table in the supine position and after satisfactory general anesthesia was obtained, the right side of the head was clipped, prepped, and draped in a sterile manner for right parietal craniotomy. The patient had a 3 to 4 cm subcutaneous mass in the parietal region just to the right of the midline. A linear incision was outlined such that this mass was in the epicenter of the incision. The incision was infiltrated with 1% Xylocaine with epinephrine after which it was turned in sharply to the subcutaneous tissues. Rolanda clips were used for scalp hemostasis. The mass was identified and utilized in the monopolar cautery. The mass was excised from the underlying bone. This mass was submitted for permanent specimen. Preoperative studies had suggested involvement of the skull as well. Initially, alma holes were placed just to the right of midline in front of and behind the tumor. Additional, alma holes were then placed out laterally. The bone was then removed as a free bone flap and was noted to be involved with the tumor as it was quite soft. The dura was noted to be intact. The dura was opened and reflected toward the midline. The dura was adherent to underlying tumor and the dura was quite thickened and involved with neoplastic process as well. The dura and the exposure was excised over until the midline of the exposure was reached. After meeting the dura, there was noted to be a mass indenting the cortex. By utilizing a Sonopet ultrasonic aspirator, the center of the mass was cored out with multiple specimens taken with the pituitary rongeur for permanent pathology. After coring at the center of the mass, dissection was carried out between the mass and surrounding cortex and there was noted to be a good plane to allow tissue definition. Ultimately utilizing the Sonopet ultrasonic aspirator as well as careful dissection, the mass was completely excised. It was felt that the involved dura likely extended over toward the sagittal sinus. For that reason, some involved dura was likely left intact. To repair the dural opening, a piece of bovine pericardium was selected, cut to fit the defect and secured into position with 4 -0 Nurolon sutures. The alexander defect was covered with a piece of Tritanium mesh , which was secured into position with screws. A subgaleal drain was placed and tunneled out posteriorly. The galea was then reapproximated with 2-0 Vicryl and the skin closed with skin clips. The estimated blood loss was 100 cc and the final sponge, pad, and needle counts were correct. The patient was taken to Recovery and extubated and in stable condition. [id number]/[facility] #: [id number] NIKKI
== END 2018-01-19 10:30 | DRG 25 ==
LOC: ED 10:50 → MEDTELE 14:25 → ICU 01-15 10:26 → SSU 01-16 14:52
PROVIDERS: ADMIT Internal Medicine; ATTEND Internal Medicine
PROC: 00B70ZZ Excision of Cerebral Hemisphere, Open Approach (ICD-10-PCS; principal; 2018-01-16)
DX: C79.31 Secondary malignant neoplasm of brain (principal); G93.6 Cerebral edema; G40.209 Localization-related (focal) (partial) symptomatic epilepsy and epileptic syndromes with complex partial seizures, not intractable, without status epilepticus; I25.10 Atherosclerotic heart disease of native coronary artery without angina pectoris; I48.91 Unspecified atrial fibrillation; G47.30 Sleep apnea, unspecified; K21.9 Gastro-esophageal reflux disease without esophagitis; K58.9 Irritable bowel syndrome, unspecified; M47.9 Spondylosis, unspecified; F32.9 Major depressive disorder, single episode, unspecified; Z96.1 Presence of intraocular lens; Z96.0 Presence of urogenital implants; R40.2362 Coma scale, best motor response, obeys commands, at arrival to emergency department; R40.2142 Coma scale, eyes open, spontaneous, at arrival to emergency department; R40.2252 Coma scale, best verbal response, oriented, at arrival to emergency department; E11.22 Type 2 diabetes mellitus with diabetic chronic kidney disease; I12.9 Hypertensive chronic kidney disease with stage 1 through stage 4 chronic kidney disease, or unspecified chronic kidney disease; N18.3 Chronic kidney disease, stage 3 (moderate); E78.5 Hyperlipidemia, unspecified; C61 Malignant neoplasm of prostate; D64.9 Anemia, unspecified; E66.9 Obesity, unspecified; Z68.27 Body mass index [BMI] 27.0-27.9, adult; E11.51 Type 2 diabetes mellitus with diabetic peripheral angiopathy without gangrene; Z96.641 Presence of right artificial hip joint; E11.649 Type 2 diabetes mellitus with hypoglycemia without coma; G83.9 Paralytic syndrome, unspecified; Z88.5 Allergy status to narcotic agent; Z88.8 Allergy status to other drugs, medicaments and biological substances; Z98.42 Cataract extraction status, left eye; Z98.41 Cataract extraction status, right eye; Z87.442 Personal history of urinary calculi; Z88.4 Allergy status to anesthetic agent; Z83.3 Family history of diabetes mellitus; Z82.49 Family history of ischemic heart disease and other diseases of the circulatory system
CPT/HCPCS: 10021; 36415; 70450; 70551; 71045; 78306; 80048; 80053; 80177; 81003; 81015; 82565; 82803; 82947; 83605; 84153; 84484; 84520; 85014; 85018; 85025; 85049; 85610; 85730; 86140; 86850; 86900; 86901; 87077; 87086; 87186; 88172; 88173; 88305; 88307; 88311; 88313; 88341; 88342; 88360; 93005; 95819; 99284; A9270-GY; A9503; C1713; C1776; G8978-GP-CI; G8978-GP-CJ; G8978-GP-CL; G8979-GP-CH; G8979-GP-CI; G8987-GO-CL; G8988-GO-CI; G8988-GO-CJ; G8989-GO-CJ; J0360; J0690; J1100; J1240; J1644; J1956; J2150; J2250; J2270; J2405; J2704; J3010; J8540

== ENCOUNTER 2018-01-19 09:15 | Inpatient (IN) | payer MEDICARE ==
[2018-01-19] MEDS ORDERED: Acetaminophen TAB* 325 MG PO PRN ×2 (10:30→11:24)
[2018-01-19] MEDS ORDERED: Dextrose 50% Syringe 50 ML* 25 GM/50 ML SYRINGE IV PUSH PRN ×6 (10:45→11:25)
[2018-01-19] MEDS ORDERED: Melatonin 3 MG TAB PO PRN ×2 (10:51→11:24)
[2018-01-19] MEDS ORDERED: oxyCODONE TAB* 5 MG TAB PO PRN ×2 (10:52→11:24)
--- OUTSIDE RECORDS SUMMARY | 2018-01-19 10:52 | XMS REPORT ---
:1945 External Reference #:[id number] Author Organization [facility] Address [address] [place] [address] Phone [phone] Care Team Providers Name Role Phone Amando Stein MD Primary Care Physician Unavailable Payers Type Date Identification Numbers Payment Provider Subscriber Medicare Primary Policy Number: [id number] Medicare Markie Montilla PayID: [id number] [address] [place] [address] Medigap Part B Effective: Policy Number: Aarp/Paguate Markie Montilla 2015 [id number] Healthcare PayID: [id number] [address] [place] [address] Medigap Part B Expires: 2015 Policy Number: [id number] CDP (Oon) Markie Montilla PayID: [id number] [address] [address] [place] [address] Problems Date Description Provider Status Onset: 05/26/2015 Atrial fibrillation Khris White DO [facility] Active Onset: 05/02/2016 Spinal stenosis of lumbar region Kd Infante M.D. Active Onset: 05/18/2016 Convalescence after surgery Kd Infante M.D. Active Onset: 10/16/2017 Localized, primary osteoarthritis Mandi Ruiz M.D. Active of the pelvic region and thigh Onset: 01/08/2018 Prosthetic arthroplasty of the hip Mandi Ruiz M.D. 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 Pt does not use tobacco currently. ETOH Use Denies alcohol use He quit ETOH in the Smoking Patient is a former smoker Quit 1991 (3 [id number]) Recreational Drug Use Denies Drug Use Daily Caffeine Consumes on average 1 cup of hot tea per day Exercise Type/Frequency Exercises regularly Allergies, Adverse Reactions, Alerts Date Description Reaction Status Severity Comments 05/26/2015 Zestoretic active elevated BUN/CR 05/26/2015 Indapamide active hypotension 05/26/2015 Lisinopril active rash Medications Medication Date Status Form Strength Qnty SIG Indications Ordering Provider Compression 12/11 Active Misc 2unit 20/30 b/l Z47.1 Mandi Stock s ousmane Ruiz M.D. Oxycodone-Aceta 11/15 Active Tablets 5-325mg 70tab 1 by mouth Mandi minophen s every 4-6 Joseph, hours as M.D. needed for post-op pain. max 10 per day Colace 11/15 Active Capsules 100mg 90cap 1 tab every Mandi /2017 s 12 hours as Joseph, needed for M.D. constipation Chlorthalidone 10/12 Active Tablets 25mg 30tab 1 by mouth Khris S. s every day DO HEATHER White Glipizide Active Tablets 10mg 1 tab in the Unknown /0000 am and 1 tab in the pm Humulin N 00 Active Suspension 100Unit/M 14 units Unknown /0000 L sub-q in the pm or as directed Omeprazole Active Capsules DR 20mg 1 by mouth Unknown /0000 every day Atorvastatin 00 Active Tablets 40mg 1 by mouth Unknown Calcium /0000 every day Trazodone HCL Active Tablets 50mg 1 tablet at Unknown /0000 bedtime as needed Centrum Silver 00 Active Chewtabs 1 daily Unknown /0000 Vitamin C 0000 Active Tablets 500mg 1 tablet Unknown /0000 daily Tramadol HCL 00 Active Tablets 50mg 1-2 tablets Unknown /0000 every 6 hours as needed Imodium A-D 00 Active Tablets 2mg once daily Unknown /0000 as needed Warfarin Sodium 11/15 Hx Tablets 2mg 90tab 1-3 tabs ( Mandi /2018 s 2-6 mg) Joseph, - daily, M.D. 01/07 by inr dose. Keflex 10/16 Hx Capsules 500mg 30cap 1 tablet by M25.551 s mouth q6 Joseph, - hours M.D. 01/07 Levofloxacin 02/10 Hx Tablets 500mg 30tab Take One M86.651 Felix s Tablet By D. - Mouth Once Clint, 04/19 Daily M.D. Levaquin 01/24 Hx Tablets 500mg 28tab 1 by mouth Felix s every day D. - Clint, 02/24 M.D. Doxycycline 01/10 Hx Capsules 100mg 60cap 1 cap by Felix Hyclbella s mouth twice D. - a day with Clint, 05/29 food M.D. Ceftriaxone 11/26 Hx Solution 2gm 1 grams Unknown Sodium Rec daily iv x - 41 days at 01/10 [facility] infusion /2016 center Metronidazole 11/26 Hx Tablets 500mg one tablet by mouth 3 - times daily 01/10 for 1 month Fluconazole 11/26 Hx Tablets 200mg 30tab 1 by mouth Felix s every day DJessenia - Clint, 03/26 M.D. Losartan 07/08 Hx Tablets 100mg 1 by mouth Khris Irene Potassium /2015 every day Christopher, - DO [facility] 07/14 Chlorthalidone 05/26 Hx Tablets 25mg 30tab 1 by mouth Khris SJessenia /2014 s every day Christopher, - DO [facility] 07/14 [place] 07/09 Hx Tablets 7.5-325mg 45tab one to two Sloan J. /2012 s po qid lisan Aundrea - M.DJessenia 03/26 Diltiazem HCL 00 Hx Caps ER 240mg 1 by mouth Unknown ER /0000 24HR every day - 10/16 Atenolol Hx Tablets 50mg 1/2 by mouth Unknown /0000 every day - 07/09 Losartan Hx Tablets 50mg 1 by mouth Unknown Potassium / every day - 07/09 Potassium Hx Capsules ER 10Meq 1 by mouth Unknown Chloride ER /0000 bid - 10/12 Fish Oil 00 Hx Capsules 1000mg 1 by mouth Unknown /0000 every day - 05/26 Warfarin Sodium 00 Hx Tablets 5mg take as Unknown /0000 directed - 01/07 Fish Oil 00/ Hx Capsules 1000mg 1 by mouth Unknown /0000 every day - 03/26 Atenolol 00 Hx Tablets 50mg 1/2 by mouth Unknown /0000 every day - 04/11 Medications Administered in Office Medication Date Status Form Strength Qnty SIG Indications Ordering Provider Influenza,Unsp Administered Injection Unknown ecified 017 Vital Signs Date Vital Result Comment 01/08/2018 Height 72 inches 6'0" Heart Rate 75 /min BP Systolic 142 mmHg BP Diastolic 70 mmHg Respiratory Rate 18 /min Body Temperature 98.0 F Pain Level 5 12/11/2017 Height 72 inches 6'0" Weight 210.00 lb BP Systolic 150 mmHg BP Diastolic 64 mmHg Body Temperature 98.3 F BMI (Body Mass Index) 28.5 kg/m2 11/24/2017 Height 72 inches 6'0" Weight 212.00 lb BP Systolic 142 mmHg BP Diastolic 66 mmHg Body Temperature 97.6 F Pain Level 3 BMI (Body Mass Index) 28.7 kg/m2 11/01/2017 Height 72 inches 6'0" Weight 209.00 lb Heart Rate 79 /min BP Systolic 155 mmHg BP Diastolic 76 mmHg Body Temperature 97.2 F BMI (Body Mass Index) 28.3 kg/m2 10/20/2017 Height 70.25 inches 5'10.25" Weight 210.00 lb No shoes Heart Rate 82 /min BP Systolic Sitting 132 mmHg Lue lrg cuff BP Diastolic Sitting 62 mmHg Lue lrg cuff BP Systolic Standing 130 mmHg Lue lrg cuff BP Diastolic Standing 60 mmHg Lue lrg cuff Respiratory Rate 14 /min BMI (Body Mass Index) 29.9 kg/m2 Ejection Fraction 50% 06/04/2015-ech 10/16/2017 Height 70.25 inches 5'10.25" Weight 216.00 lb Heart Rate 96 /min BP Systolic 136 mmHg BP Diastolic 68 mmHg Respiratory Rate 13 /min Body Temperature 97.7 F Pain Level 8 BMI (Body Mass Index) 30.8 kg/m2 09/05/2017 Height 70.25 inches 5'10.25" Weight 212.25 lb Heart Rate 72 /min BP Systolic Sitting 144 mmHg BP Diastolic Sitting 62 mmHg Respiratory Rate 14 /min Body Temperature 97.8 F BMI (Body Mass Index) 30.2 kg/m2 05/30/2017 Height 70.25 inches 5'10.25" Weight 212.50 lb Heart Rate 72 /min BP Systolic Sitting 130 mmHg BP Diastolic Sitting 60 mmHg Respiratory Rate 16 /min Body Temperature 97.8 F BMI (Body Mass Index) 30.3 kg/m2 04/20/2017 Height 70.25 inches 5'10.25" Weight 211.00 lb with shoes Heart Rate 72 /min BP Systolic Sitting 126 mmHg Rue reg cuff BP Diastolic Sitting 58 mmHg Rue reg cuff BP Systolic Standing 130 mmHg Rue reg cuff BP Diastolic Standing 62 mmHg Rue reg cuff Respiratory Rate 16 /min BMI (Body Mass Index) 30.1 kg/m2 Ejection Fraction 50% echo 201403/27/2017 Height 70.25 inches 5'10.25" Weight 206.50 lb Heart Rate 84 /min BP Systolic Sitting 166 mmHg BP Diastolic Sitting 54 mmHg Respiratory Rate 16 /min Body Temperature 98.6 F BMI (Body Mass Index) 29.4 kg/m2 02/10/2017 Height 70.25 inches 5'10.25" Weight 199.50 lb Heart Rate 72 /min BP Systolic Sitting 140 mmHg BP Diastolic Sitting 64 mmHg Respiratory Rate 14 /min Body Temperature 97.9 F BMI (Body Mass Index) 28.4 kg/m2 01/10/2017 Height 70.25 inches 5'10.25" Weight 206.25 lb Heart Rate 84 /min BP Systolic Sitting 140 mmHg BP Diastolic Sitting 80 mmHg Respiratory Rate 16 /min Body Temperature 98.9 F BMI (Body Mass Index) 29.4 kg/m2 12/20/2016 Height 70.25 inches 5'10.25" Weight 207.38 lb Heart Rate 82 /min BP Systolic Sitting 164 mmHg BP Diastolic Sitting 76 mmHg Respiratory Rate 16 /min Body Temperature 98.9 F BMI (Body Mass Index) 29.5 kg/m2 12/06/2016 Height 70.25 inches 5'10.25" Weight 220.00 lb Heart Rate 80 /min BP Systolic Sitting 154 mmHg BP Diastolic Sitting 74 mmHg Respiratory Rate 16 /min Body Temperature 98.9 F BMI (Body Mass Index) 31.3 kg/m2 07/11/2016 Height 70.25 inches 5'10.25" Weight 231.00 lb Heart Rate 78 /min BP Systolic Sitting 122 mmHg BP Diastolic Sitting 84 mmHg Pain Level 0 BMI (Body Mass Index) 32.9 kg/m2 06/06/2016 Height 70.25 inches 5'10.25" Weight 231.00 lb BP Systolic Sitting 160 mmHg BP Diastolic Sitting 90 mmHg Pain Level 0 BMI (Body Mass Index) 32.9 kg/m2 05/18/2016 Height 70.25 inches 5'10.25" Weight 231.00 lb Heart Rate 66 /min BP Systolic 140 mmHg BP Diastolic 70 mmHg Pain Level 0 BMI (Body Mass Index) 32.9 kg/m2 05/02/2016 Height 70.25 inches 5'10.25" Weight 231.00 lb Heart Rate 78 /min BP Systolic Sitting 150 mmHg BP Diastolic Sitting 80 mmHg Pain Level 3 BMI (Body Mass Index) 32.9 kg/m2 04/12/2016 Height 70.25 inches 5'10.25" Weight 230.50 lb no shoes Heart Rate 64 /min BP Systolic Sitting 160 mmHg Lue reg cuff BP Diastolic Sitting 80 mmHg Lue reg cuff BP Systolic Standing 162 mmHg "" BP Diastolic Standing 78 mmHg "" Respiratory Rate 16 /min BMI (Body Mass Index) 32.8 kg/m2 Ejection Fraction 50% echo 06/04/15 10/13/2015 Height 70.25 inches 5'10.25" Weight 232.00 lb w/ shoes Heart Rate 56 /min reg BP Systolic Sitting 140 mmHg Lue, lg cuff BP Diastolic Sitting 70 mmHg Lue, lg cuff BP Systolic Standing 136 mmHg Lue BP Diastolic Standing 74 mmHg Lue Respiratory Rate 18 /min BMI (Body Mass Index) 33.0 kg/m2 Ejection Fraction 50% As of 06/04/15 echo 07/09/2015 Height 70.25 inches 5'10.25" Weight 242.50 lb w/o shoes Heart Rate 60 /min reg BP Systolic Sitting 120 mmHg Rue, lg cuff BP Diastolic Sitting 68 mmHg Rue, lg cuff BP Systolic Standing 126 mmHg Rue BP Diastolic Standing 66 mmHg Rue Respiratory Rate 18 /min BMI (Body Mass Index) 34.5 kg/m2 Ejection Fraction 50% as of 06/04/15 echo 05/26/2015 Height 70.25 inches 5'10.25" Weight 252.00 lb w/o shoes Heart Rate 54 /min reg BP Systolic 162 mmHg Rue, reg cuff BP Diastolic 100 mmHg Rue, reg cuff BP Systolic Sitting 178 mmHg Lue, reg cuff BP Diastolic Sitting 98 mmHg Lue, reg cuff BP Systolic Standing 172 mmHg Lue BP Diastolic Standing 86 mmHg Lue Respiratory Rate 18 /min BMI (Body Mass Index) 35.9 kg/m2 Results Test Date Test Result H/L Range Note Laboratory test 12/07/2017 Hemoglobin A1c (Glyco 7.6 % High 4.0-5.6 1 finding HGB) Inr/Protime 12/07/2017 Inr 1.57 High 0.77-1.02 CBC Auto Diff 12/07/2017 White Blood Count 7.1 10^3/uL 3.5-10.8 Red Blood Count 2.91 10^6/uL Low 4.0-5.4 Hemoglobin 8.2 g/dL Low 14.0-18.0 Hematocrit 25 % Low 42-52 Mean Corpuscular Volume 85 fL 80-94 Mean Corpuscular Hemoglobin 28 pg 27-31 Mean Corpuscular HGB Conc 33 g/dL 31-36 Red Cell Distribution Width 16 % High 10.5-15 Platelet Count 355 10^3/uL 150-450 Mean Platelet Volume 7.9 um3 7.4-10.4 Abs Neutrophils 5.3 10^3/uL 1.5-7.7 Abs Lymphocytes 0.9 10^3/uL Low 1.0-4.8 Abs Monocytes 0.6 10^3/uL 0-0.8 Abs Eosinophils 0.2 10^3/uL 0-0.6 Abs Basophils 0.1 10^3/uL 0-0.2 Abs Nucleated RBC 0 10^3/uL Granulocyte % 74.9 % 38-83 Lymphocyte % 13.0 % Low 25-47 Monocyte % 8.2 % High 0-7 Eosinophil % 3.2 % 0-6 Basophil % 0.7 % 0-2 Nucleated Red Blood Cells % 0 Comp Metabolic Panel 12/07/2017 Sodium 139 mmol/L 139-145 Potassium 4.7 mmol/L 3.5-5.0 Chloride 104 mmol/L 101-111 Co2 Carbon Dioxide 26 mmol/L 22-32 Anion Gap 9 mmol/L 2-11 Glucose 81 mg/dL 70-100 Blood Urea Nitrogen 49 mg/dL High 6-24 Creatinine 2.79 mg/dL High 0.67-1.17 BUN/Creatinine Ratio 17.6 8-20 Calcium 8.9 mg/dL 8.6-10.3 Total Protein 6.9 g/dL 6.4-8.9 Albumin 3.4 g/dL 3.2-5.2 Globulin 3.5 g/dL 2-4 Albumin/Globulin Ratio 1.0 1-3 Total Bilirubin 0.30 mg/dL 0.2-1.0 Alkaline Phosphatase 116 U/L High 34-104 Alt 12 U/L 7-52 Ast 14 U/L 13-39 Egfr Non- 22.5 >60 Egfr 28.9 >60 2 Type & Screen 11/01/2017 Patient Blood Type O Positive 3 Antibody Screen NEGATIVE 3 Laboratory test finding 10/20/2017 C Reactive Protein 19.34 mg/L High < 5.00 4 CBC Auto Diff 10/20/2017 White Blood Count 7.8 10^3/uL 3.5-10.8 Red Blood Count 3.61 10^6/uL Low 4.0-5.4 Hemoglobin 9.9 g/dL Low 14.0-18.0 Hematocrit 30 % Low 42-52 Mean Corpuscular Volume 83 fL 80-94 Mean Corpuscular Hemoglobin 27 pg 27-31 Mean Corpuscular HGB Conc 33 g/dL 31-36 Red Cell Distribution Width 15 % 10.5-15 Platelet Count 335 10^3/uL 150-450 Mean Platelet Volume 8.1 um3 7.4-10.4 Abs Neutrophils 6.3 10^3/uL 1.5-7.7 Abs Lymphocytes 0.7 10^3/uL Low 1.0-4.8 Abs Monocytes 0.6 10^3/uL 0-0.8 Abs Eosinophils 0.1 10^3/uL 0-0.6 Abs Basophils 0 10^3/uL 0-0.2 Abs Nucleated RBC 0 10^3/uL Granulocyte % 81.5 % 38-83 Lymphocyte % 9.1 % Low 25-47 Monocyte % 7.6 % High 0-7 Eosinophil % 1.2 % 0-6 Basophil % 0.6 % 0-2 Nucleated Red Blood Cells % 0 Comp Metabolic Panel 10/20/2017 Sodium 137 mmol/L Low 139-145 Potassium 4.3 mmol/L 3.5-5.0 Chloride 103 mmol/L 101-111 Co2 Carbon Dioxide 23 mmol/L 22-32 Anion Gap 11 mmol/L 2-11 Glucose 105 mg/dL High 70-100 Blood Urea Nitrogen 53 mg/dL High 6-24 Creatinine 2.74 mg/dL High 0.67-1.17 BUN/Creatinine Ratio 19.3 8-20 Calcium 9.0 mg/dL 8.6-10.3 Total Protein 7.4 g/dL 6.4-8.9 Albumin 3.7 g/dL 3.2-5.2 Globulin 3.7 g/dL 2-4 Albumin/Globulin Ratio 1.0 1-3 Total Bilirubin 0.40 mg/dL 0.2-1.0 Alkaline Phosphatase 89 U/L 34-104 Alt 15 U/L 7-52 Ast 17 U/L 13-39 Egfr Non- 23.0 >60 Egfr 29.5 >60 5 Laboratory test finding 10/20/2017 Hemoglobin A1c (Glyco 8.3 % High 4.0- 5.6 6 HGB) Comp Metabolic Panel 08/15/2017 Sodium 136 mmol/L 133-145 Potassium 4.3 mmol/L 3.5-5.0 Chloride 99 mmol/L Low 101-111 Co2 Carbon Dioxide 27 mmol/L 22-32 Anion Gap 10 mmol/L 2-11 Glucose 162 mg/dL High 70-100 Blood Urea Nitrogen 48 mg/dL High 6-24 Creatinine 3.10 mg/dL High 0.67-1.17 BUN/Creatinine Ratio 15.5 8-20 Calcium 9.2 mg/dL 8.6-10.3 Total Protein 7.4 g/dL 6.4-8.9 Albumin 3.9 g/dL 3.2-5.2 Globulin 3.5 g/dL 2-4 Albumin/Globulin Ratio 1.1 1-3 Total Bilirubin 0.40 mg/dL 0.2-1.0 Alkaline Phosphatase 95 U/L 34-104 Alt 14 U/L 7-52 Ast 18 U/L 13-39 Egfr Non- 19.9 >60 Egfr 25.6 >60 7 CBC Auto Diff 08/15/2017 White Blood Count 8.8 10^3/uL 3.5-10.8 Red Blood Count 3.80 10^6/uL Low 4.0-5.4 Hemoglobin 10.5 g/dL Low 14.0-18.0 Hematocrit 32 % Low 42-52 Mean Corpuscular Volume 84 fL 80-94 Mean Corpuscular Hemoglobin 28 pg 27-31 Mean Corpuscular HGB Conc 33 g/dL 31-36 Red Cell Distribution Width 16 % High 10.5-15 Platelet Count 328 10^3/uL 150-450 Mean Platelet Volume 8 um3 7.4-10.4 Abs Neutrophils 6.9 10^3/uL 1.5-7.7 Abs Lymphocytes 1.0 10^3/uL 1.0-4.8 Abs Monocytes 0.6 10^3/uL 0-0.8 Abs Eosinophils 0.2 10^3/uL 0-0.6 Abs Basophils 0.1 10^3/uL 0-0.2 Abs Nucleated RBC 0 10^3/uL Granulocyte % 78.7 % 38-83 Lymphocyte % 11.6 % Low 25-47 Monocyte % 6.8 % 1-9 Eosinophil % 2.1 % 0-6 Basophil % 0.8 % 0-2 Nucleated Red Blood Cells % 0 Laboratory test finding 06/12/2017 Point of Care Glucose 162 mg/dL High 70 -100 8 Laboratory test finding 06/12/2017 Point of Care Glucose 170 mg/dL High 70 -100 9 Hemoglobin/Hematocrit 06/12/2017 Hemoglobin 10.6 g/dL Low 14.0-18.0 Hematocrit 32 % Low 42-52 Inr/Protime 06/12/2017 Inr 1.02 0.77-1.02 10 Basic Metabolic Panel 06/12/2017 Sodium 139 mmol/L 133-145 Potassium 3.8 mmol/L 3.5-5.0 Chloride 106 mmol/L 101-111 Co2 Carbon Dioxide 24 mmol/L 22-32 Anion Gap 9 mmol/L 2-11 Glucose 161 mg/dL High 70-100 Blood Urea Nitrogen 45 mg/dL High 6-24 Creatinine 1.93 mg/dL High 0.67-1.17 BUN/Creatinine Ratio 23.3 High 8-20 Calcium 9.5 mg/dL 8.6-10.3 Egfr Non- 34.4 >60 Egfr 44.2 >60 11 Laboratory test finding 06/05/2017 C Reactive Protein 5.82 mg/L High < 5.00 12 Laboratory test finding 05/16/2017 Blood Urea Nitrogen 36 mg/dL High 6-24 BUN Creatinine 05/16/2017 Creatinine 2.50 mg/dL High 0.67-1.17 Egfr Non- 25.5 >60 Egfr 32.8 >60 13 Laboratory test finding 05/16/2017 PSA Screening 1.069 ng/mL 0-4.0 14 Laboratory test finding 03/27/2017 C Reactive Protein 3.21 mg/L < 5.00 15 Laboratory test finding 03/17/2017 C Reactive Protein 21.69 mg/L High < 5.00 16 Laboratory test finding 02/03/2017 C Reactive Protein 15.42 mg/L High < 5.00 17 Laboratory test finding 01/24/2017 C Reactive Protein 72.54 mg/L High < 5.00 18 Laboratory test finding 01/13/2017 C Reactive Protein 19.48 mg/L High < 5.00 19 Comp Metabolic Panel 01/13/2017 Sodium 131 mmol/L Low 133-145 Potassium 4.5 mmol/L 3.5-5.0 Chloride 100 mmol/L Low 101-111 Co2 Carbon Dioxide 22 mmol/L 22-32 Anion Gap 9 mmol/L 2-11 Glucose 226 mg/dL High 70-100 Blood Urea Nitrogen 38 mg/dL High 6-24 Creatinine 1.66 mg/dL High 0.67-1.17 BUN/Creatinine Ratio 22.9 High 8-20 Calcium 9.0 mg/dL 8.6-10.3 Total Protein 7.7 g/dL 6.4-8.9 Albumin 3.6 g/dL 3.2-5.2 Globulin 4.1 g/dL High 2-4 Albumin/Globulin Ratio 0.9 Low 1-3 Total Bilirubin 0.20 mg/dL 0.2-1.0 Alkaline Phosphatase 92 U/L 34-104 Alt 23 U/L 7-52 Ast 21 U/L 13-39 Egfr Non- 40.9 >60 Egfr 52.6 >60 20 CBC Auto Diff 01/13/2017 White Blood Count 8.9 10^3/uL 3.5-10.8 Red Blood Count 3.78 10^6/uL Low 4.0-5.4 Hemoglobin 10.2 g/dL Low 14.0-18.0 Hematocrit 31 % Low 42-52 Mean Corpuscular Volume 83 fL 80-94 Mean Corpuscular Hemoglobin 27 pg 27-31 Mean Corpuscular HGB Conc 32 g/dL 31-36 Red Cell Distribution Width 19 % High 10.5-15 Platelet Count 360 10^3/uL 150-450 Mean Platelet Volume 8 um3 7.4-10.4 Abs Neutrophils 7.2 10^3/uL 1.5-7.7 Abs Lymphocytes 0.9 10^3/uL Low 1.0-4.8 Abs Monocytes 0.6 10^3/uL 0-0.8 Abs Eosinophils 0.1 10^3/uL 0-0.6 Abs Basophils 0.1 10^3/uL 0-0.2 Abs Nucleated RBC 0 10^3/uL Granulocyte % 80.8 % 38-83 Lymphocyte % 10.6 % Low 25-47 Monocyte % 7.2 % 1-9 Eosinophil % 0.7 % 0-6 Basophil % 0.7 % 0-2 Nucleated Red Blood Cells % 0 Laboratory test finding 01/06/2017 C Reactive Protein 13.16 mg/L High < 5.00 21 Comp Metabolic Panel 01/06/2017 Sodium 130 mmol/L Low 133-145 Potassium 4.7 mmol/L 3.5-5.0 Chloride 98 mmol/L Low 101-111 Co2 Carbon Dioxide 24 mmol/L 22-32 Anion Gap 8 mmol/L 2-11 Glucose 252 mg/dL High 70-100 Blood Urea Nitrogen 39 mg/dL High 6-24 Creatinine 1.58 mg/dL High 0.67-1.17 BUN/Creatinine Ratio 24.7 High 8-20 Calcium 9.0 mg/dL 8.6-10.3 Total Protein 7.6 g/dL 6.4-8.9 Albumin 3.5 g/dL 3.2-5.2 Globulin 4.1 g/dL High 2-4 Albumin/Globulin Ratio 0.9 Low 1-3 Total Bilirubin 0.30 mg/dL 0.2-1.0 Alkaline Phosphatase 73 U/L 34-104 Alt 14 U/L 7-52 Ast 18 U/L 13-39 Egfr Non- 43.3 >60 Egfr 55.7 >60 22 CBC Auto Diff 01/06/2017 White Blood Count 8.1 10^3/uL 3.5-10.8 Red Blood Count 3.69 10^6/uL Low 4.0-5.4 Hemoglobin 10.2 g/dL Low 14.0-18.0 Hematocrit 31 % Low 42-52 Mean Corpuscular Volume 84 fL 80-94 Mean Corpuscular Hemoglobin 28 pg 27-31 Mean Corpuscular HGB Conc 33 g/dL 31-36 Red Cell Distribution Width 19 % High 10.5-15 Platelet Count 362 10^3/uL 150-450 Mean Platelet Volume 8 um3 7.4-10.4 Abs Neutrophils 6.5 10^3/uL 1.5-7.7 Abs Lymphocytes 0.9 10^3/uL Low 1.0-4.8 Abs Monocytes 0.6 10^3/uL 0-0.8 Abs Eosinophils 0 10^3/uL 0-0.6 Abs Basophils 0.1 10^3/uL 0-0.2 Abs Nucleated RBC 0 10^3/uL Granulocyte % 80.3 % 38-83 Lymphocyte % 10.8 % Low 25-47 Monocyte % 7.6 % 1-9 Eosinophil % 0.5 % 0-6 Basophil % 0.8 % 0-2 Nucleated Red Blood Cells % 0 CBC Auto Diff 12/30/2016 White Blood Count 9.0 10^3/uL 3.5-10.8 Red Blood Count 3.80 10^6/uL Low 4.0-5.4 Hemoglobin 10.1 g/dL Low 14.0-18.0 Hematocrit 32 % Low 42-52 Mean Corpuscular Volume 84 fL 80-94 Mean Corpuscular Hemoglobin 27 pg 27-31 Mean Corpuscular HGB Conc 32 g/dL 31-36 Red Cell Distribution Width 20 % High 10.5-15 Platelet Count 401 10^3/uL 150-450 Mean Platelet Volume 8 um3 7.4-10.4 Abs Neutrophils 7.3 10^3/uL 1.5-7.7 Abs Lymphocytes 1.0 10^3/uL 1.0-4.8 Abs Monocytes 0.5 10^3/uL 0-0.8 Abs Eosinophils 0.1 10^3/uL 0-0.6 Abs Basophils 0.1 10^3/uL 0-0.2 Abs Nucleated RBC 0 10^3/uL Granulocyte % 81.3 % 38-83 Lymphocyte % 10.9 % Low 25-47 Monocyte % 6.0 % 1-9 Eosinophil % 0.7 % 0-6 Basophil % 1.1 % 0-2 Nucleated Red Blood Cells % 0 Comp Metabolic Panel 12/30/2016 Sodium 128 mmol/L Low 133-145 Potassium 5.0 mmol/L 3.5-5.0 Chloride 97 mmol/L Low 101-111 Co2 Carbon Dioxide 23 mmol/L 22-32 Anion Gap 8 mmol/L 2-11 Glucose 314 mg/dL High 70-100 Blood Urea Nitrogen 38 mg/dL High 6-24 Creatinine 1.59 mg/dL High 0.67-1.17 BUN/Creatinine Ratio 23.9 High 8-20 Calcium 9.0 mg/dL 8.6-10.3 Total Protein 7.5 g/dL 6.4-8.9 Albumin 3.4 g/dL 3.2-5.2 Globulin 4.1 g/dL High 2-4 Albumin/Globulin Ratio 0.8 Low 1-3 Total Bilirubin 0.30 mg/dL 0.2-1.0 Alkaline Phosphatase 81 U/L 34-104 Alt 13 U/L 7-52 Ast 20 U/L 13-39 Egfr Non- 43.0 >60 Egfr 55.3 >60 23 Laboratory test finding 12/30/2016 C Reactive Protein 16.03 mg/L High < 5.00 24 CBC Auto Diff 12/23/2016 White Blood Count 8.2 10^3/uL 3.5-10.8 Red Blood Count 3.72 10^6/uL Low 4.0-5.4 Hemoglobin 9.6 g/dL Low 14.0-18.0 Hematocrit 30 % Low 42-52 Mean Corpuscular Volume 81 fL 80-94 Mean Corpuscular Hemoglobin 26 pg Low 27-31 Mean Corpuscular HGB Conc 32 g/dL 31-36 Red Cell Distribution Width 20 % High 10.5-15 Platelet Count 392 10^3/uL 150-450 Mean Platelet Volume 8 um3 7.4-10.4 Abs Neutrophils 6.3 10^3/uL 1.5-7.7 Abs Lymphocytes 1.0 10^3/uL 1.0-4.8 Abs Monocytes 0.8 10^3/uL 0-0.8 Abs Eosinophils 0.1 10^3/uL 0-0.6 Abs Basophils 0.1 10^3/uL 0-0.2 Abs Nucleated RBC 0 10^3/uL Granulocyte % 76.8 % 38-83 Lymphocyte % 11.9 % Low 25-47 Monocyte % 9.3 % High 1-9 Eosinophil % 1.1 % 0-6 Basophil % 0.9 % 0-2 Nucleated Red Blood Cells % 0 Comp Metabolic Panel 12/23/2016 Sodium 129 mmol/L Low 133-145 Potassium 4.7 mmol/L 3.5-5.0 Chloride 97 mmol/L Low 101-111 Co2 Carbon Dioxide 23 mmol/L 22-32 Anion Gap 9 mmol/L 2-11 Glucose 283 mg/dL High 70-100 Blood Urea Nitrogen 40 mg/dL High 6-24 Creatinine 1.71 mg/dL High 0.67-1.17 BUN/Creatinine Ratio 23.4 High 8-20 Calcium 8.8 mg/dL 8.6-10.3 Total Protein 7.8 g/dL 6.4-8.9 Albumin 3.5 g/dL 3.2-5.2 Globulin 4.3 g/dL High 2-4 Albumin/Globulin Ratio 0.8 Low 1-3 Total Bilirubin 0.30 mg/dL 0.2-1.0 Alkaline Phosphatase 86 U/L 34-104 Alt 12 U/L 7-52 Ast 17 U/L 13-39 Egfr Non- 39.5 >60 Egfr 50.9 >60 25 Laboratory test finding 12/23/2016 C Reactive Protein 43.11 mg/L High < 5.00 26 CBC Auto Diff 12/16/2016 White Blood Count 9.8 10^3/uL 3.5-10.8 Red Blood Count 3.67 10^6/uL Low 4.0-5.4 Hemoglobin 9.7 g/dL Low 14.0-18.0 Hematocrit 30 % Low 42-52 Mean Corpuscular Volume 81 fL 80-94 Mean Corpuscular Hemoglobin 26 pg Low 27-31 Mean Corpuscular HGB Conc 33 g/dL 31-36 Red Cell Distribution Width 21 % High 10.5-15 Platelet Count 456 10^3/uL High 150-450 Mean Platelet Volume 8 um3 7.4-10.4 Abs Neutrophils 8.3 10^3/uL High 1.5-7.7 Abs Lymphocytes 0.8 10^3/uL Low 1.0-4.8 Abs Monocytes 0.7 10^3/uL 0-0.8 Abs Eosinophils 0 10^3/uL 0-0.6 Abs Basophils 0.1 10^3/uL 0-0.2 Abs Nucleated RBC 0 10^3/uL Granulocyte % 84.5 % High 38-83 Lymphocyte % 7.8 % Low 25-47 Monocyte % 6.9 % 1-9 Eosinophil % 0.3 % 0-6 Basophil % 0.5 % 0-2 Nucleated Red Blood Cells % 0 Comp Metabolic Panel 12/16/2016 Sodium 130 mmol/L Low 133-145 Potassium 4.1 mmol/L 3.5-5.0 Chloride 97 mmol/L Low 101-111 Co2 Carbon Dioxide 24 mmol/L 22-32 Anion Gap 9 mmol/L 2-11 Glucose 324 mg/dL High 70-100 Blood Urea Nitrogen 28 mg/dL High 6-24 Creatinine 1.66 mg/dL High 0.67-1.17 BUN/Creatinine Ratio 16.9 8-20 Calcium 8.7 mg/dL 8.6-10.3 Total Protein 7.8 g/dL 6.4-8.9 Albumin 3.5 g/dL 3.2-5.2 Globulin 4.3 g/dL High 2-4 Albumin/Globulin Ratio 0.8 Low 1-3 Total Bilirubin 0.30 mg/dL 0.2-1.0 Alkaline Phosphatase 87 U/L 34-104 Alt 13 U/L 7-52 Ast 17 U/L 13-39 Egfr Non- 40.9 >60 Egfr 52.6 >60 27 Laboratory test 12/16/2016 C Reactive Protein 17.60 mg/L High < 5.00 28 finding Laboratory test 12/15/2016 C Difficile PCR SEE RESULT BELOW 29 finding CBC Auto Diff 12/09/2016 White Blood Count 10.9 10^3/uL High 3.5-10.8 Red Blood Count 3.58 10^6/uL Low 4.0-5.4 Hemoglobin 9.2 g/dL Low 14.0-18.0 Hematocrit 29 % Low 42-52 Mean Corpuscular Volume 81 fL 80-94 Mean Corpuscular Hemoglobin 26 pg Low 27-31 Mean Corpuscular HGB Conc 32 g/dL 31-36 Red Cell Distribution Width 20 % High 10.5-15 Platelet Count 487 10^3/uL High 150-450 Mean Platelet Volume 7 um3 Low 7.4-10.4 Abs Neutrophils 8.7 10^3/uL High 1.5-7.7 Abs Lymphocytes 1.1 10^3/uL 1.0-4.8 Abs Monocytes 0.9 10^3/uL High 0-0.8 Abs Eosinophils 0.1 10^3/uL 0-0.6 Abs Basophils 0.1 10^3/uL 0-0.2 Abs Nucleated RBC 0 10^3/uL Granulocyte % 79.6 % 38-83 Lymphocyte % 10.5 % Low 25-47 Monocyte % 7.9 % 1-9 Eosinophil % 1.1 % 0-6 Basophil % 0.9 % 0-2 Nucleated Red Blood Cells % 0 Comp Metabolic Panel 12/09/2016 Sodium 131 mmol/L Low 133-145 Potassium 4.1 mmol/L 3.5-5.0 Chloride 96 mmol/L Low 101-111 Co2 Carbon Dioxide 26 mmol/L 22-32 Anion Gap 9 mmol/L 2-11 Glucose 188 mg/dL High 70-100 Blood Urea Nitrogen 34 mg/dL High 6-24 Creatinine 1.84 mg/dL High 0.67-1.17 BUN/Creatinine Ratio 18.5 8-20 Calcium 8.9 mg/dL 8.6-10.3 Total Protein 7.7 g/dL 6.4-8.9 Albumin 3.4 g/dL 3.2-5.2 Globulin 4.3 g/dL High 2-4 Albumin/Globulin Ratio 0.8 Low 1-3 Total Bilirubin 0.30 mg/dL 0.2-1.0 Alkaline Phosphatase 81 U/L 34-104 Alt 12 U/L 7-52 Ast 17 U/L 13-39 Egfr Non- 36.4 >60 Egfr 46.9 >60 30 Laboratory test finding 12/09/2016 C Reactive Protein 50.66 mg/L High < 5.00 31 CBC Auto Diff 12/02/2016 White Blood Count 10.3 10^3/uL 3.5-10.8 Red Blood Count 3.38 10^6/uL Low 4.0-5.4 Hemoglobin 8.8 g/dL Low 14.0-18.0 Hematocrit 28 % Low 42-52 Mean Corpuscular Volume 81 fL 80-94 Mean Corpuscular Hemoglobin 26 pg Low 27-31 Mean Corpuscular HGB Conc 32 g/dL 31-36 Red Cell Distribution Width 20 % High 10.5-15 Platelet Count 475 10^3/uL High 150-450 Mean Platelet Volume 7 um3 Low 7.4-10.4 Abs Neutrophils 8.3 10^3/uL High 1.5-7.7 Abs Lymphocytes 0.9 10^3/uL Low 1.0-4.8 Abs Monocytes 0.8 10^3/uL 0-0.8 Abs Eosinophils 0.2 10^3/uL 0-0.6 Abs Basophils 0.1 10^3/uL 0-0.2 Abs Nucleated RBC 0 10^3/uL Granulocyte % 80.5 % 38-83 Lymphocyte % 9.2 % Low 25-47 Monocyte % 7.9 % 1-9 Eosinophil % 1.6 % 0-6 Basophil % 0.8 % 0-2 Nucleated Red Blood Cells % 0 Comp Metabolic Panel 12/02/2016 Sodium 134 mmol/L 133-145 Potassium 4.1 mmol/L 3.5-5.0 Chloride 100 mmol/L Low 101-111 Co2 Carbon Dioxide 23 mmol/L 22-32 Anion Gap 11 mmol/L 2-11 Glucose 188 mg/dL High 70-100 Blood Urea Nitrogen 28 mg/dL High 6-24 Creatinine 2.07 mg/dL High 0.67-1.17 BUN/Creatinine Ratio 13.5 8-20 Calcium 8.6 mg/dL 8.6-10.3 Total Protein 7.4 g/dL 6.4-8.9 Albumin 3.2 g/dL 3.2-5.2 Globulin 4.2 g/dL High 2-4 Albumin/Globulin Ratio 0.8 Low 1-3 Total Bilirubin 0.20 mg/dL 0.2-1.0 Alkaline Phosphatase 93 U/L 34-104 Alt 14 U/L 7-52 Ast 14 U/L 13-39 Egfr Non- 31.8 >60 Egfr 40.9 >60 32 Laboratory test finding 12/02/2016 C Reactive Protein 75.60 mg/L High < 5.00 33 Retic Count 12/02/2016 Retic Count 1.6 % High 0.5-1.5 Corrected Retic Count 1.0 % 0.5-1.5 Maturation Factor Retic 2.0 Retic Index 0.50 Mean Retic Volume 106.8 Immature Retic Fraction 0.45 RBC Retic Count 3.38 10^6/uL Low 4.6-6.2 Hematocrit for Retic CNT 28 % Low 42-52 Laboratory test finding 05/10/2016 Point of Care Glucose 162 mg/dL High 74 -106 34 Laboratory test finding 05/10/2016 Point of Care Glucose 145 mg/dL High 74 -106 35 CBC Auto Diff 05/10/2016 White Blood Count 8.6 10^3/uL 3.5-10.8 Red Blood Count 3.55 10^6/uL Low 4.0-5.4 Hemoglobin 9.4 g/dL Low 14.0-18.0 Hematocrit 28 % Low 42-52 Mean Corpuscular Volume 80 fL 80-94 Mean Corpuscular Hemoglobin 27 pg 27-31 Mean Corpuscular HGB Conc 33 g/dL 31-36 Red Cell Distribution Width 17 % High 10.5-15 Platelet Count 301 10^3/uL 150-450 Mean Platelet Volume 8 um3 7.4-10.4 Abs Neutrophils 6.9 10^3/uL 1.5-7.7 Abs Lymphocytes 0.7 10^3/uL Low 1.0-4.8 Abs Monocytes 0.8 10^3/uL 0-0.8 Abs Eosinophils 0.1 10^3/uL 0-0.6 Abs Basophils 0 10^3/uL 0-0.2 Abs Nucleated RBC 0 10^3/uL Granulocyte % 80.5 % 38-83 Lymphocyte % 8.5 % Low 25-47 Monocyte % 9.5 % High 1-9 Eosinophil % 0.9 % 0-6 Basophil % 0.6 % 0-2 Nucleated Red Blood Cells % 0 Inr/Protime 05/10/2016 Inr 1.13 High 0.89-1.11 Basic Metabolic Panel 05/04/2016 Sodium 137 mmol/L 133-145 36 Potassium 4.4 mmol/L 3.5-5.0 36 Chloride 102 mmol/L 101-111 36 Co2 Carbon Dioxide 27 mmol/L 22-32 36 Anion Gap 8 mmol/L 2-11 36 Glucose 111 mg/dL High 70-100 36 Blood Urea Nitrogen 42 mg/dL High 6-24 36 Creatinine 1.93 mg/dL High 0.67-1.17 36 BUN/Creatinine Ratio 21.8 High 8-20 36 Calcium 9.2 mg/dL 8.6-10.3 36 Egfr Non- 34.5 >60 36 Egfr 44.4 >60 36, 37 CBC No Diff 05/04/2016 White Blood Count 12.0 10^3/uL High 3.5-10.8 36 Red Blood Count 3.88 10^6/uL Low 4.0-5.4 36 Hemoglobin 10.0 g/dL Low 14.0-18.0 36 Hematocrit 31 % Low 42-52 36 Mean Corpuscular Volume 80 fL 80-94 36 Mean Corpuscular Hemoglobin 26 pg Low 27-31 36 Mean Corpuscular HGB Conc 32 g/dL 31-36 36 Red Cell Distribution Width 17 % High 10.5-15 36 Platelet Count 436 10^3/uL 150-450 36 Mean Platelet Volume 8 um3 7.4-10.4 36 Basic Metabolic Panel 10/13/2015 Sodium 139 mmol/L 133-145 Potassium 4.3 mmol/L 3.5-5.0 Chloride 103 mmol/L 101-111 Co2 Carbon Dioxide 26 mmol/L 22-32 Anion Gap 10 mmol/L 2-11 Glucose 101 mg/dL High 70-100 Blood Urea Nitrogen 32 mg/dL High 6-24 Creatinine 1.74 mg/dL High 0.67-1.17 BUN/Creatinine Ratio 18.4 8-20 Calcium 9.3 mg/dL 8.6-10.3 Egfr Non- 39.0 >60 Egfr 50.1 >60 38 Basic Metabolic Panel 07/09/2015 Sodium 138 mmol/L 133-145 Potassium 5.3 mmol/L High 3.5-5.0 Chloride 106 mmol/L 101-111 Co2 Carbon Dioxide 25 mmol/L 22-32 Anion Gap 7 mmol/L 2-11 Glucose 154 mg/dL High 70-100 Blood Urea Nitrogen 36 mg/dL High 6-24 Creatinine 1.92 mg/dL High 0.67-1.17 BUN/Creatinine Ratio 18.8 8-20 Calcium 9.0 mg/dL 8.6-10.3 Egfr Non- 34.8 >60 Egfr 44.8 >60 39 1 Therapeutic target for the treatment of diabetes mellitus patients is <7% HBA1C, and in selective patients <6.0%. Please refer to [place] [employer] diabetic care guidelines for further information. 2 Because ethnic data is not always readily available, this report includes an eGFR for both -Americans and non- Americans. The National Kidney Disease Education Program (NKDEP) does not endorse the use of the MDRD equation for patients that are not between the ages of 18 and 70, are , have extremes of body size, muscle mass, or nutritional status, or are non- or non-. According to the National Kidney Foundation, irrespective of diagnosis, the stage of the disease is based on the level of kidney function: Stage Description GFR(mL/min/1.73 m(2)) 1 Kidney damage with normal or decreased GFR 90 2 Kidney damage with mild decrease in GFR 60-89 3 Moderate decrease in GFR 30-59 4 Severe decrease in GFR 15-29 5 Kidney failure <15 (or dialysis) 3 PAIN IN RIGHT HIP 4 Acute inflammation: >10.00 5 Because ethnic data is not always readily available, this report includes an eGFR for both -Americans and non- Americans. The National Kidney Disease Education Program (NKDEP) does not endorse the use of the MDRD equation for patients that are not between the ages of 18 and 70, are , have extremes of body size, muscle mass, or nutritional status, or are non- or non-. According to the National Kidney Foundation, irrespective of diagnosis, the stage of the disease is based on the level of kidney function: Stage Description GFR(mL/min/1.73 m(2)) 1 Kidney damage with normal or decreased GFR 90 2 Kidney damage with mild decrease in GFR 60-89 3 Moderate decrease in GFR 30-59 4 Severe decrease in GFR 15-29 5 Kidney failure <15 (or dialysis) 6 Therapeutic target for the treatment of diabetes mellitus patients is <7% HBA1C, and in selective patients <6.0%. Please refer to [place] [employer] diabetic care guidelines for further information. 7 Because ethnic data is not always readily available, this report includes an eGFR for both -Americans and non- Americans. The National Kidney Disease Education Program (NKDEP) does not endorse the use of the MDRD equation for patients that are not between the ages of 18 and 70, are , have extremes of body size, muscle mass, or nutritional status, or are non- or non-. According to the National Kidney Foundation, irrespective of diagnosis, the stage of the disease is based on the level of kidney function: Stage Description GFR(mL/min/1.73 m(2)) 1 Kidney damage with normal or decreased GFR 90 2 Kidney damage with mild decrease in GFR 60-89 3 Moderate decrease in GFR 30-59 4 Severe decrease in GFR 15-29 5 Kidney failure <15 (or dialysis) 8 Nursing Manager: [id number] Nursing Manager: [id number] Please note the change in INR reference range effective 17. 11 Because ethnic data is not always readily available, this report includes an eGFR for both -Americans and non- Americans. The National Kidney Disease Education Program (NKDEP) does not endorse the use of the MDRD equation for patients that are not between the ages of 18 and 70, are , have extremes of body size, muscle mass, or nutritional status, or are non- or non-. According to the National Kidney Foundation, irrespective of diagnosis, the stage of the disease is based on the level of kidney function: Stage Description GFR(mL/min/1.73 m(2)) 1 Kidney damage with normal or decreased GFR 90 2 Kidney damage with mild decrease in GFR 60-89 3 Moderate decrease in GFR 30-59 4 Severe decrease in GFR 15-29 5 Kidney failure <15 (or dialysis) 12 Acute inflammation: >10.00 13 Because ethnic data is not always readily available, this report includes an eGFR for both -Americans and non- Americans. The National Kidney Disease Education Program (NKDEP) does not endorse the use of the MDRD equation for patients that are not between the ages of 18 and 70, are , have extremes of body size, muscle mass, or nutritional status, or are non- or non-. According to the National Kidney Foundation, irrespective of diagnosis, the stage of the disease is based on the level of kidney function: Stage Description GFR(mL/min/1.73 m(2)) 1 Kidney damage with normal or decreased GFR 90 2 Kidney damage with mild decrease in GFR 60-89 3 Moderate decrease in GFR 30-59 4 Severe decrease in GFR 15-29 5 Kidney failure <15 (or dialysis) 14 Serum levels of PSA measured using the [facility] [facility] DXI Hybritech immunoassay should not be interpreted as absolute evidence of the presence or absence of disease. The PSA value should be used in conjunction with other pertinent clinical diagnostic procedures. The values obtained with different assay methods or kits cannot be used interchangeably. 15 Acute inflammation: >10.00 16 Acute inflammation: >10.00 17 Acute inflammation: >10.00 18 Acute inflammation: >10.00 19 Acute inflammation: >10.00 20 Because ethnic data is not always readily available, this report includes an eGFR for both -Americans and non- Americans. The National Kidney Disease Education Program (NKDEP) does not endorse the use of the MDRD equation for patients that are not between the ages of 18 and 70, are , have extremes of body size, muscle mass, or nutritional status, or are non- or non-. According to the National Kidney Foundation, irrespective of diagnosis, the stage of the disease is based on the level of kidney function: Stage Description GFR(mL/min/1.73 m(2)) 1 Kidney damage with normal or decreased GFR 90 2 Kidney damage with mild decrease in GFR 60-89 3 Moderate decrease in GFR 30-59 4 Severe decrease in GFR 15-29 5 Kidney failure <15 (or dialysis) 21 Acute inflammation: >10.00 22 Because ethnic data is not always readily available, this report includes an eGFR for both -Americans and non- Americans. The National Kidney Disease Education Program (NKDEP) does not endorse the use of the MDRD equation for patients that are not between the ages of 18 and 70, are , have extremes of body size, muscle mass, or nutritional status, or are non- or non-. According to the National Kidney Foundation, irrespective of diagnosis, the stage of the disease is based on the level of kidney function: Stage Description GFR(mL/min/1.73 m(2)) 1 Kidney damage with normal or decreased GFR 90 2 Kidney damage with mild decrease in GFR 60-89 3 Moderate decrease in GFR 30-59 4 Severe decrease in GFR 15-29 5 Kidney failure <15 (or dialysis) 23 Because ethnic data is not always readily available, this report includes an eGFR for both -Americans and non- Americans. The National Kidney Disease Education Program (NKDEP) does not endorse the use of the MDRD equation for patients that are not between the ages of 18 and 70, are , have extremes of body size, muscle mass, or nutritional status, or are non- or non-. According to the National Kidney Foundation, irrespective of diagnosis, the stage of the disease is based on the level of kidney function: Stage Description GFR(mL/min/1.73 m(2)) 1 Kidney damage with normal or decreased GFR 90 2 Kidney damage with mild decrease in GFR 60-89 3 Moderate decrease in GFR 30-59 4 Severe decrease in GFR 15-29 5 Kidney failure <15 (or dialysis) 24 Acute inflammation: >10.00 25 Because ethnic data is not always readily available, this report includes an eGFR for both -Americans and non- Americans. The National Kidney Disease Education Program (NKDEP) does not endorse the use of the MDRD equation for patients that are not between the ages of 18 and 70, are , have extremes of body size, muscle mass, or nutritional status, or are non- or non-. According to the National Kidney Foundation, irrespective of diagnosis, the stage of the disease is based on the level of kidney function: Stage Description GFR(mL/min/1.73 m(2)) 1 Kidney damage with normal or decreased GFR 90 2 Kidney damage with mild decrease in GFR 60-89 3 Moderate decrease in GFR 30-59 4 Severe decrease in GFR 15-29 5 Kidney failure <15 (or dialysis) 26 Acute inflammation: >10.00 27 Because ethnic data is not always readily available, this report includes an eGFR for both -Americans and non- Americans. The National Kidney Disease Education Program (NKDEP) does not endorse the use of the MDRD equation for patients that are not between the ages of 18 and 70, are , have extremes of body size, muscle mass, or nutritional status, or are non- or non-. According to the National Kidney Foundation, irrespective of diagnosis, the stage of the disease is based on the level of kidney function: Stage Description GFR(mL/min/1.73 m(2)) 1 Kidney damage with normal or decreased GFR 90 2 Kidney damage with mild decrease in GFR 60-89 3 Moderate decrease in GFR 30-59 4 Severe decrease in GFR 15-29 5 Kidney failure <15 (or dialysis) 28 Acute inflammation: >10.00 29 SEE RESULT BELOW Name: MARKIE MONTILLA : [address]: Felix Sanchez MD Acct: [id number] Unit: [id number] AGE: 71 Location: [facility] Re12/15/16 SEX: M Status: REG REF SPEC: [id number] JESS: 12/15/[address] [facility] [address]: Felix Sanchez MD REQ: [id number] RECD: 12/15/16 STATUS: COMP _ SOURCE: STOOL SPDESC: ORDERED: Enrike alonzo PCR Procedure Result Reported Site Stool Specimen Description Final 12/15/16- 1058 ML Stool Color Brown Stool Form Nonformed Stool Consistency Soft C. difficile PCR Final 12/15/16- 1146 ML Organism 1 027 Presumptive NEGATIVE Organism 2 Toxigenic C.diff NEGATIVE * ML - MAIN LAB ([facility]) . END OF REPORT * ML=Testing performed at Main Lab DEPARTMENT OF PATHOLOGY, [address] [place] [address] Derian Gandhi M.D. Director [facility] # [id number] 30 Because ethnic data is not always readily available, this report includes an eGFR for both -Americans and non- Americans. The National Kidney Disease Education Program (NKDEP) does not endorse the use of the MDRD equation for patients that are not between the ages of 18 and 70, are , have extremes of body size, muscle mass, or nutritional status, or are non- or non-. According to the National Kidney Foundation, irrespective of diagnosis, the stage of the disease is based on the level of kidney function: Stage Description GFR(mL/min/1.73 m(2)) 1 Kidney damage with normal or decreased GFR 90 2 Kidney damage with mild decrease in GFR 60-89 3 Moderate decrease in GFR 30-59 4 Severe decrease in GFR 15-29 5 Kidney failure <15 (or dialysis) 31 Acute inflammation: >10.00 32 Because ethnic data is not always readily available, this report includes an eGFR for both -Americans and non- Americans. The National Kidney Disease Education Program (NKDEP) does not endorse the use of the MDRD equation for patients that are not between the ages of 18 and 70, are , have extremes of body size, muscle mass, or nutritional status, or are non- or non-. According to the National Kidney Foundation, irrespective of diagnosis, the stage of the disease is based on the level of kidney function: Stage Description GFR(mL/min/1.73 m(2)) 1 Kidney damage with normal or decreased GFR 90 2 Kidney damage with mild decrease in GFR 60-89 3 Moderate decrease in GFR 30-59 4 Severe decrease in GFR 15-29 5 Kidney failure <15 (or dialysis) 33 Acute inflammation: >10.00 34 Nursing Manager: [id number] YARON ESCOBAR 35 Nursing Manager: [id number] KRISHNA PATEL 36 SDS 05/10 37 Because ethnic data is not always readily available, this report includes an eGFR for both -Americans and non- Americans. The National Kidney Disease Education Program (NKDEP) does not endorse the use of the MDRD equation for patients that are not between the ages of 18 and 70, are , have extremes of body size, muscle mass, or nutritional status, or are non- or non-. According to the National Kidney Foundation, irrespective of diagnosis, the stage of the disease is based on the level of kidney function: Stage Description GFR(mL/min/1.73 m(2)) 1 Kidney damage with normal or decreased GFR 90 2 Kidney damage with mild decrease in GFR 60-89 3 Moderate decrease in GFR 30-59 4 Severe decrease in GFR 15-29 5 Kidney failure <15 (or dialysis) 38 Because ethnic data is not always readily available, this report includes an eGFR for both -Americans and non- Americans. The National Kidney Disease Education Program (NKDEP) does not endorse the use of the MDRD equation for patients that are not between the ages of 18 and 70, are , have extremes of body size, muscle mass, or nutritional status, or are non- or non-. According to the National Kidney Foundation, irrespective of diagnosis, the stage of the disease is based on the level of kidney function: Stage Description GFR(mL/min/1.73 m(2)) 1 Kidney damage with normal or decreased GFR 90 2 Kidney damage with mild decrease in GFR 60-89 3 Moderate decrease in GFR 30-59 4 Severe decrease in GFR 15-29 5 Kidney failure <15 (or dialysis) 39 Because ethnic data is not always readily available, this report includes an eGFR for both -Americans and non- Americans. The National Kidney Disease Education Program (NKDEP) does not endorse the use of the MDRD equation for patients that are not between the ages of 18 and 70, are , have extremes of body size, muscle mass, or nutritional status, or are non- or non-. According to the National Kidney Foundation, irrespective of diagnosis, the stage of the disease is based on the level of kidney function: Stage Description GFR(mL/min/1.73 m(2)) 1 Kidney damage with normal or decreased GFR 90 2 Kidney damage with mild decrease in GFR 60-89 3 Moderate decrease in GFR 30-59 4 Severe decrease in GFR 15-29 5 Kidney failure <15 (or dialysis) Procedures Date CPT Code Description Status 11/14/2017 30095 THR Total Hip Replacement Completed 11/14/2017 69046 THR Total Hip Replacement Completed 10/20/2017 78146 EKG Tracing & Interpretation Completed 04/20/2017 18177 EKG Tracing & Interpretation Completed 05/10/2016 60928 Miranda/Facet/Foraminotomy;Ea Addl Segment; Cerv, Thora, Or Completed Lumbar 05/10/2016 94371 Miranda/Facet/Foraminotomy;Ea Addl Segment; Cerv, Thora, Or Completed Lumbar 05/10/2016 19045 Miranda/Facet/Foraminotomy;Vertebral Segment; Lumbar Completed 05/10/2016 49096 Miranda/Facet/Foraminotomy;Vertebral Segment; Lumbar Completed 10/13/2015 32415 EKG Tracing & Interpretation Completed 08/26/2015 71450 Polysomnography Sleep Staging 4+ Parameters Completed 06/04/2015 30103 ECHO Transthoracic, Real-Time 2D With Doppler And Color Completed Flow 05/26/2015 41258 EKG Tracing & Interpretation Completed 07/26/2012 64512 Anterior Instrumentation 2-3 Vertebral Segments Completed 07/26/2012 24929 arthrodesis,anterior interbody incl disc space Completed prep,discectomy,de 07/26/2012 41951 Allograft For Spine Surgery,Structural (Bone Bank) Completed 05/14/2010 34021 Treadmill Interp/Report Only Completed 05/14/2010 90002 Stress Test Supervsn W/Out I/R Completed 03/06/2007 54013 EKG, Interpretation Only Completed 03/06/2007 27161 EKG, Interpretation Only Completed Encounters Type Date Location Provider CPT E/M Dx Office Visit 11/16/2017 [facility], Candie Irizarry [address] E10.9 10:43a Hospitalists LESLIE Chandra I10 Z96.641 Office Visit 11/15/2017 10:43a [facility], [place] [address] E10.9 Hospitalists I10 Z96.641 Office Visit 11/14/2017 10:39a [facility], [place] [address] E10.9 Hospitalists I10 Z96.641 Office Visit 10/20/2017 11:20a [facility], [address] I48.0 [facility] FAC E11.69 N18.9 I10 Office Visit 10/16/2017 9:30a [facility] Ruiz M.D. 41180 M25.551 C.M.A. M16.11 M16.12 M25.552 Office Visit 09/05/2017 9:30a [facility] China Sanchez, 89080 Z86.19 Infectious Diseases M.D. Office Visit 05/30/2017 9:10a [facility] Eliezer Sanchez, 99593 Z86.19 Infectious Diseases M.D. Office Visit 04/20/2017 10:20a [facility], 94457 I48.0 [facility] E11.69 I10 N18.9 Office Visit 03/27/2017 2:00p [facility] Eliezer Mcgovern 45890 M86.651 Milena Sanchez M.D. B95.4 Z79.2 M25.551 Office Visit 02/10/2017 9:10a [facility] Eliezer Mcgovern 05531 M86.651 Milena Sanchez M.D. K65.1 B95.4 Z79.2 Office Visit 01/10/2017 9:50a [facility] China Mcgovern 40423 M86.651 Infectious Diseases Ashly Sanchez K65.1 B95.4 Z79.2 Office Visit 12/20/2016 9:10a [facility] China [place]. 17831 M86.651 Infectious Diseases Ashly Sanchez K65.1 B95.4 Z79.2 Office Visit 12/06/2016 8:50a [facility] [place]. 23374 M86.651 Infectious Diseases Ashly Sanchez K65.1 B95.4 Z79.2 Office Visit 11/25/2016 9:50a [facility] China Sanchez, 55625 M00.9 Infectious Diseases M.D. M86.18 K65.1 R82.8 R79.82 Office Visit 11/23/2016 9:42a [facility] China Sanchez, 28290 M00.9 Infectious Diseases M.D. M86.18 K65.1 N35.9 R82.8 R79.82 Office Visit 11/22/2016 9:31a [facility] China Sanchez, 62536 M00.9 Infectious Diseases M.D. M86.18 K65.1 N35.9 Office Visit 11/21/2016 9:23a [facility] China Sanchez, 01260 E11.69 Infectious Diseases M.D. M86.18 K65.1 N35.9 R82.8 Office Visit 11/19/2016 1:10p [facility] Amos Sesay, 35661 M86.651 Assoc,pc Hospitalists MDaniele,FACP C61 T83.511A N39.0 Office Visit 09/29/2016 3:21p [facility] Loly Strong, 97377 K65.1 Hospitalists Ashly D64.9 A41.9 Office Visit 05/02/2016 11:15a [facility] Kd Infante, 68188 M48.06 Of [employer] [place] Ashly Office Visit 04/12/2016 11:45a [facility] Khris White, 48943 I48.0 Lab[employer] [place] DO FACC I10 E11.69 N18.9 Office Visit 10/13/2015 10:20a [facility] [place] [address] I48.0 [facility] FACC I10 E11.69 N18.9 Office Visit 07/09/2015 10:20a [facility] [place] [address] I48.91 [facility] FACC I10 N18.9 E11.69 Office Visit 05/26/2015 1:00p [facility] [place] [place] [address] I48.91 [facility] FACC I10 N18.9 E11.69 Office Visit 07/09/2012 4:00p [facility] Sloan Guillaume, [address]4910 723.0 Of Paige M.DJessenia Office Visit 06/22/2012 10:00a [facility] Sloan Guillaume, 94469 723.0 Of Paige Limon Office Visit 05/14/2010 1:30p [facility] Cassandramundo Irene 20466 786.05 Ashly Williamson 794.31 272.0 250.82 Plan of Care Future Appointment(s):02/09/2018 8:15 am - Mandi Ruiz M.D. at [facility].01/08/2018 - Mandi Ruiz M.D.Z47.1 Aftercare following joint replacement surgeryFollow up:Follow up: 4 iwyprP60.551 Pain in right hipZ96.641 Presence of right artificial hip joint
[2018-01-19] MEDS ORDERED: Insulin GLARGINE(*) 1 UNITS UNIT SUBCUT SCH ×3 (11:00→23:00)
[2018-01-19] MEDS ORDERED: Insulin LISPRO* 1 UNITS UNIT SUBCUT SCH ×4 (11:30)
--- NOTE | 2018-01-19 12:44 | PMRUTEAM ---
PMRU: Team Meeting Current Status: Physical Therapy: Current Status Bed Mobility Assistance MIn A Transfer Moblility Assistance contact guard Transfer/Bed Mobility Straight Cane Recommended Devices Ambulation Assistance contact guard 100ft Ambulation Assistive Devices Cane Stairs Assistance Min A Stairs Recommended Devices One Rail Number of Stairs 1 Occupational Therapy: Current Status Upper Body Dressing Max Asst Bathing Max Asst Toileting Mod Assist Toilet Transfer Min Assist Shower Transfer Min Assist Eating Supervision Speech - swallow is functional and 15/15 on BIMS Goals: Physical Therapy: Initial Goals Bed Mobility Assistance Independent Transfer Mobility Assistance Independent Transfer/Bed Mobility Straight Cane,Small Base Quad Cane Recommended Devices Ambulation Independent Ambulation Recommended Devices Straight Cane,Small Base Quad Cane Ambulation Distance 150 Stairs Assistance Independent Stair Recommended Devices Quad Cane,One Rail Number of Stairs 5 Home Exercise Program Independent Assistance Occupational Therapy: Initial Goals Goals to be Completed in (Days 7-10 days ) Upper Body Bathing Routine Minimal Contact Assist Lower Body Bathing Routine Moderate Assist Upper Body Dressing Routine Minimal Contact Assist Lower Body Dressing Routine Moderate Assist Toilet Hygeine and Clothing Modified Independent with Management Routine Toilet Transfer Routine Modified Independent with Step-In Shower Transfer Modified Independent with Routine Functional Transfers for ADL Modified Independent with Grooming Routine Modified Independent with Feeding Routine Modified Independent with Nutrition: Goals Intervention Goals 1. Maintain adequate oral intake to support maintenance of lean body mass w/o promoting undesirable weight gain. 2. Maintain K levels WNL. 3. Maintain adequate glycemic control per inpatient parameters. 4. Provide education if appropriate r/t hyperkalemia if persists prior to d/c. Care Plan: Burgess management Keep hydrated Skin care of incision Diabetes management Family training Medicine Note: Length of Stay: [1 week] Anticipated Discharge Destination: home Tentative Discharge Date: [01/26/18] Discharged to: [home]
--- NOTE | 2018-01-19 13:16 | HP ---
CC: Dr. Stein; Dr. Infante; Dr. Daniel; Dr. Morataya REHABILITATION ADMISSION HISTORY AND PHYSICAL: DATE OF ADMISSION: 01/19/18 REASON FOR ADMISSION: Status post craniotomy for metastatic prostate cancer. HISTORY OF PRESENT ILLNESS: This is a 72-year-old man who initially was diagnosed with prostate cancer more than 10 years and for the past few years has had a chronic indwelling Burgess catheter due to incontinence and presented to the hospital on 01/08/18 with two days of left upper extremity weakness. He was hoping that it would go away and so did not present earlier. In the emergency room, CT of the head showed a right parietal mass. MRI of the brain later on showed that this mass was through the bone and into the soft tissues. He was seen by Dr. Morataya and in his presence had a left focal partial seizure lasting 20 to 30 seconds involving the left hand. He was started on Keppra. EEG on 01/09/18 was negative for seizure focus. Bone scan did not show any other lesions other than the one at the skull. He had initially a biopsy showing that in fact the tumor was metastatic prostate cancer on 01/09/18. Ultimately, as it seemed to be an isolated metastasis he was taken to the OR on 01/15/[address] Infante for craniotomy and tumor excision. On 01/17/18, he was noticed to have increased weakness of his left hand. He was started on Decadron IV, which has since been changed to p.o. This unfortunately has caused issues with his insulin-dependent diabetes mellitus. He is on a carbohydrate count and sliding scale schedule for lispro insulin q.a.c. and q.h.s. as well as twice daily Lantus. He had another focal seizure yesterday morning. In followup with neurology Dilantin was added 100 mg in the morning and 200 mg in the evening. He will need ongoing neurology followup. He had diarrhea, which has since resolved. Upon admission, he was noted to have a urinary tract infection, which has since been treated. He is no longer on any antibiotics. His Burgess catheter was changed during this hospitalization. He had a right total hip replacement in October of 2017, postoperatively complicated by a deep venous thrombosis. He was originally treated with Lovenox as an outpatient and now postoperatively after craniotomy, he is on subcutaneous heparin 5000 units q.12 hours and has restarted taking warfarin, which he previously was on chronically for atrial fibrillation. His home dosing was 5 mg daily except one day per week of 7.5 mg. He started warfarin again on and has only received two doses of 7.5mg. Today, his INR is 1.2. Prior to admission, he was requiring a moderate amount of assist for lower body dressing due to hip precautions after his hip replacement. He also required moderate amount of assist for bathing, which his was helping him with. He was independent ambulating using rolling walker or cane. With occupational therapy here, he has required maximum amount of assistance for lower body dressing. With physical therapy, he has required minimum amount of assist for ambulation with straight cane for 30 feet and contact guard assist for transfers. PAST MEDICAL HISTORY: 1. Prostate cancer, status post prostatectomy, radiation and Lupron with for the few years chronic indwelling Burgess catheter due to incontinence. 2. Status post right total hip replacement in October of [address] Ruiz, complicated by deep venous thrombosis. 3. Insulin-dependent diabetes mellitus. 4. Hypertension. 5. Hyperlipidemia. 6. Chronic kidney disease, stage 4. 7. Vitamin B12 deficiency. 8. Chronic anemia. 9. Paroxysmal atrial fibrillation, previously on chronic Coumadin. 10. GERD. 11. status post lumbar laminectomy. 12. Status post cataract surgery. 13. Status post cervical surgery. 14. Nephrolithiasis, status post renal stents. 15. History of obesity. 16. History of peripheral vascular disease. MEDICATIONS: 1. Vitamin C 500 mg daily. 2. Lipitor 40 mg q.p.m. 3. Chlorthalidone 25 mg daily. 4. Diltiazem 240 mg q.h.s. 5. Ferrous sulfate 325 mg daily. 6. Glipizide 10 mg b.i.d. 7. Lantus insulin 20 units q.12 hours. 8. Prilosec 20 mg q.h.s. 9. Trazodone 50 mg q.h.s. 10. Keppra 100 mg b.i.d. 11. Oxycodone 5 mg q.6 hours p.r.n. pain. 12. Dilantin 100 mg q.a.m., 200 mg q.h.s. 13. Melatonin 3 mg q.h.s. p.r.n. 14. Sliding scale lispro insulin with carb counting as well q.a.c. and q.h.s. 15. Heparin 5000 units subcutaneously q.12 hours. 16. Colace 100 mg b.i.d. 17. Decadron 2 mg t.i.d. 18. Tylenol 650 mg q.4 hours p.r.n. 19. Warfarin currently 7.5 mg daily. ALLERGIES: CODEINE, HYDROCHLOROTHIAZIDE, LISINOPRIL, INDAPAMIDE. FAMILY HISTORY: His mother and sister both had diabetes. SOCIAL HISTORY: He lives with his , Talita. She is his healthcare proxy if he cannot make decisions for himself. He also has two grown daughters that visit him daily. He quit smoking about 25 years ago. No alcoholism. His home has one to five steps to enter depending on the entrance and that is one level. 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 He is quite sedentary and watches TV. REVIEW OF SYSTEMS: See history of present illness and past medical history. The remainder of 13-system review was completed and documented on the patient intake form. PHYSICAL EXAMINATION GENERAL: Well-developed, well-nourished, appearing stated age. MENTAL STATUS: Alert and oriented x3. VITAL SIGNS: Temperature 97.8, pulse 66, respirations 16, oxygen saturation 99 % on room air, blood pressure 137/60. HEENT: Normocephalic, atraumatic. Oropharynx is clear with moist mucous membranes. He has poor dentition. NECK: Supple. No lymphadenopathy. He has juanita in place over his cranium that are clean, dry, and intact. LUNGS: Clear to auscultation bilaterally. HEART: Regular rate and rhythm. He has 2+ pedal pulses. ABDOMEN: Active bowel sounds. Soft, nontender, nondistended. EXTREMITIES: No clubbing, cyanosis, or edema. MUSCULOSKELETAL: He has functional range of motion of all his major joints. There is some left shoulder subluxation. NEUROLOGIC: Cranial nerves II through XII are intact except he does not have a left shoulder shrug. Motor testing shows no movement in left upper extremity except for trace finger and thumb movements. Left lower extremity, hip flexion 4, knee extension 3, ankle dorsiflexion 4. Sensation is intact in all 4 extremities. He has 5/5 motor strength in the right upper and lower extremity. DIAGNOSTIC STUDIES/LAB DATA: His white blood cell count is 8.9, hemoglobin 8, hematocrit 25, platelets 275. INR is 1.2. Sodium 135, potassium 4.9, BUN 86, creatinine 2.99. IMPRESSION: A 72-year-old man status post craniotomy for resection of isolated prostate cancer metastasis. He will be admitted to [facility], so he can return to living with his . PLAN: 1. Status post craniotomy. He is to follow up with Dr. Infante. He also apparently to have consultation with Dr. Lancaster on potentially any further treatments. Continue with Decadron 2 mg t.i.d. for now and ultimately this will need to be tapered off. 2. Complex partial seizures secondary to brain metastasis. Continue with current dosing of Keppra 1000 mg b.i.d. and Dilantin 100 mg in the morning and 200 mg in the evening. 3. Follow up with Neurology. 4. DVT prophylaxis with history of DVT. He is currently receiving subcutaneous heparin. I will add SCDs and TEDs while we await for his INR to be in the therapeutic level on warfarin. He will have INRs daily. 5. Insulin-dependent diabetes mellitus. He is still taking Glucotrol twice per day. In addition, he is receiving Lantus 20 units q.12 hours with sliding scale insulin including carb counting q.a.c. and q.h.s. Follow up with Dr. Stein as needed. 6. Chronic anemia. Monitor his labs. 7. Prostate cancer with chronic incontinence, continue with Burgess catheter. 8. Paroxysmal atrial fibrillation. Continue with Cardizem and Coumadin. 9. Chronic kidney disease. Continue to monitor labs, encourage hydration. 10. Recent right total hip replacement. Continue with hip precautions. 11. Impaired mobility. He will be seen by Physical Therapy for bed mobility, transfer, gait, and stair training using the least restrictive device. 12. Impaired self-care. He will be seen by Occupational Therapy for ADL and IADL training and equipment evaluation. 13. Advance directives. He has indicated that he does not want to be resuscitated. His is his healthcare proxy if he cannot make decisions for himself. The MOLST has already been completed. ESTIMATED LENGTH OF STAY: One to two weeks. This will be discussed with the interdisciplinary plan of care meeting later today. [id number]/[facility] #: [id number] NIKKI
[2018-01-19] MEDS ORDERED: Dexamethasone TAB* 1 MG PO SCH ×2 (14:00)
[2018-01-19] MEDS: Insulin LISPRO* 1 UNITS UNIT SUBCUT SCH ×6 (14:00→21:40)
[2018-01-19] MEDS: Dexamethasone TAB* 1 MG PO SCH ×2 (16:41→21:37)
[2018-01-19] MEDS ORDERED: glipiZIDE TAB* 5 MG PO SCH ×2 (17:00)
[2018-01-19] MEDS ORDERED: Warfarin TAB(*) 7.5 MG PO SCH ×3 (17:00)
[2018-01-19] MEDS: glipiZIDE TAB* 5 MG PO SCH (17:20)
[2018-01-19] MEDS ORDERED: Omeprazole CAP* 20 MG PO SCH ×2 (21:00)
[2018-01-19] MEDS ORDERED: levETIRAcetam TAB* 500 MG PO SCH ×2 (21:00)
[2018-01-19] MEDS ORDERED: Heparin VIAL(*) 5000 UNITS/ML VIAL (FIVE THOUSAND) SUBCUT SCH ×2 (21:00)
[2018-01-19] MEDS ORDERED: Phenytoin CAP(*) 100 MG CAP.ER PO SCH ×2 (21:00)
[2018-01-19] MEDS ORDERED: Atorvastatin* 40 MG TAB PO SCH ×2 (21:00)
[2018-01-19] MEDS ORDERED: Docusate CAP* 100 MG PO SCH ×2 (21:00)
[2018-01-19] MEDS ORDERED: traZODone TAB* 50 MG TAB PO SCH ×2 (21:00)
[2018-01-19] MEDS ORDERED: Diltiazem CD CAP* 240 MG PO SCH ×2 (21:00)
[2018-01-19] MEDS: oxyCODONE TAB* 5 MG TAB PO PRN (21:29)
[2018-01-19] MEDS: Diltiazem CD CAP* 240 MG PO SCH (21:30)
[2018-01-19] MEDS: levETIRAcetam TAB* 500 MG PO SCH (21:30)
[2018-01-19] MEDS: Omeprazole CAP* 20 MG PO SCH (21:30)
[2018-01-19] MEDS: Docusate CAP* 100 MG PO SCH (21:31)
[2018-01-19] MEDS: Atorvastatin* 40 MG TAB PO SCH (21:31)
[2018-01-19] MEDS: Phenytoin CAP(*) 100 MG CAP.ER PO SCH (21:31)
[2018-01-19] MEDS: traZODone TAB* 50 MG TAB PO SCH (21:32)
[2018-01-19] MEDS: Heparin VIAL(*) 5000 UNITS/ML VIAL (FIVE THOUSAND) SUBCUT SCH (21:37)
[2018-01-19] MEDS: Melatonin 3 MG TAB PO PRN (21:43)
[2018-01-19] MEDS ORDERED: Phenytoin IV(*) 500 MG in NS 0.9% 100 ML* 90 ML IV ONE (22:39)
[2018-01-19] MEDS ORDERED: LORazepam TAB(*) 0.5 MG PO PRN (22:39)
[2018-01-19] MEDS ORDERED: LORazepam INJ* 2 MG/ML 1 ML VIAL IV PUSH ONE (23:08)
[2018-01-19] MEDS: Acetaminophen TAB* 325 MG PO PRN (23:16)
--- NOTE | 2018-01-19 23:38 | PN ---
Progress Note Date of Service: 01/19/18 Note: I was notified this evening that Mr. Montilla had a 45-50 second seizure again involving his left arm. I spoke to neurology and was advised to load with iv dilantin and consider ativan if needed. Before he got the dilantin he had another seizure event to the left arm for about 5 minutes. Staff noted earlier before first seizure he did get some pain medication for headache. I have ordered CT brain to make sure there are no new changes. Also noted slight temperature and ordered UA as he was previously treated for UTI on acute service and asked nursing to give him tylenol. Neuro checks Q4h. Neurology will see in the morning. If there are changes on CT or if he has additional seizures he may need to go back to the hospital. Current Medications: Active Medications Generic Name Dose Route Start Last Admin Trade Name Freq PRN Reason Stop Dose Admin Acetaminophen 650 mg 01/19/18 11:25 01/19/18 23:16 Tylenol Tab* PO 650 mg Q4H PRN Administration FEVER > 101 Ascorbic Acid 500 mg 01/20/18 09:00 Vitamin C Tab* PO DAILY LAURA Atorvastatin Calcium 40 mg 01/19/18 21:00 01/19/18 21:31 Lipitor* PO 40 mg 2100 LAURA Administration Chlorthalidone 25 mg 01/20/18 09:00 [place] Tab* PO DAILY LAURA Dexamethasone 2 mg 01/19/18 14:00 01/19/18 21:37 Decadron Tab* PO 2 mg TID LAURA Administration Dextrose 12.5 gm 01/19/18 11:25 D50w Syringe 50 Ml* IV PUSH .FOR FS < 60 - SS PRN FS < 60 Diltiazem HCl 240 mg 01/19/18 21:00 01/19/18 21:30 Cardizem Cd Cap* PO 240 mg BEDTIME LAURA Administration Docusate Sodium 100 mg 01/19/18 21:00 01/19/18 21:31 Colace Cap* PO 100 mg BID LAURA Administration Ferrous Sulfate 325 mg 01/20/18 09:00 Ferrous Sulfate Tab* PO DAILY LAURA Glipizide 10 mg 01/19/18 17:00 01/19/18 17:20 Glucotrol Tab* PO 10 mg 0800,1700 LAURA Administration Heparin Sodium (Porcine) 5,000 units 01/19/18 21:00 01/19/18 21:37 Heparin Vial(*) SUBCUT 5,000 units Q12HR LAURA Administration Insulin Glargine 20 units 01/19/18 23:00 01/19/18 23:15 Lantus(*) SUBCUT 20 unit Q12H LAURA Administration Insulin Human Lispro 0 units 01/19/18 11:30 01/19/18 21:40 Humalog* SUBCUT Not Given ACHS LAURA Protocol Insulin Human Lispro 0 units 01/19/18 11:30 01/19/18 21:37 Humalog* SUBCUT 1 units ACHS LAURA Administration Protocol Levetiracetam 1,000 mg 01/19/18 21:00 01/19/18 21:30 Keppra Tab* PO 1,000 mg BID LAURA Administration Melatonin 3 mg 01/19/18 11:25 01/19/18 21:43 Melatonin PO 3 mg BEDTIME PRN Administration SLEEP Protocol Omeprazole 20 mg 01/19/18 21:00 01/19/18 21:30 Prilosec Cap* PO 20 mg BEDTIME LAURA Administration Oxycodone HCl 5 mg 01/19/18 11:25 01/19/18 21:29 Roxycodone Tab* PO 5 mg Q6H PRN Administration HEADACHE/DISCOMFORT Phenytoin Sodium 100 mg 01/20/18 09:00 Dilantin Cap(*) PO DAILY LAURA Phenytoin Sodium 200 mg 01/19/18 21:00 01/19/18 21:31 Dilantin Cap(*) PO 200 mg BEDTIME LAURA Administration Trazodone HCl 50 mg 01/19/18 21:00 01/19/18 21:32 Desyrel Tab* PO 50 mg BEDTIME LAURA Administration Warfarin Sodium 7.5 mg 01/19/18 17:00 01/19/18 17:20 Coumadin Tab(*) PO 7.5 mg DAILY@1700 LAURA Administration Protocol Vital Signs: Vital Signs Temp Pulse Resp BP Pulse Ox 98.2 F 58 18 135/62 99 01/19/18 16:28 01/19/18 22:19 01/19/18 22:19 01/19/18 22:19 01/19/18 22:19 Lab Results: Laboratory Results - last 24 hr 01/19/18 01/19/18 01/19/18 12:05 16:45 20:24 POC Glucose (mg/dL) 347 H 200 H 157 H
[2018-01-20] MEDS: oxyCODONE TAB* 5 MG TAB PO PRN (03:46)
[2018-01-20 05:42] LABS: ABS Basophils 0 10^3/ul (0-0.2); ABS Eosinophils 0 10^3/ul (0-0.6); ABS Lymphocytes 0.6 10^3/ul (1.0-4.8); ABS Monocytes 0.6 10^3/ul (0-0.8); ABS Neutrophils 8.9 10^3/ul (1.5-7.7); ABS Nucleated RBC 0 10^3/ul; Eosinophil % 0 % (0-6); Hematocrit 25 % (42-52); Hemoglobin 8.3 g/dl (14.0-18.0); Lymphocyte % 5.5 % (25-47); Mean Corpuscular HGB Conc 33 g/dl (31-36); Mean Corpuscular Hemoglobin 28 pg (27-31); Mean Corpuscular Volume 84 fL (80-94); Mean Platelet Volume 8.3 um3 (7.4-10.4); Nucleated Red Blood Cells % 0; Platelet Count 279 10^3/ul (150-450); Red Blood Count 2.98 10^6/ul (4.00-5.40); Red Cell Distribution Width 16 % (10.5-15); White Blood Count 10.1 10^3/ul (3.5-10.8)
[2018-01-20 05:50] LABS: INR 1.82 (0.77-1.02)
[2018-01-20 06:00] LABS: EGFR Non-African American 21.4 (>60)
[2018-01-20 06:28] LABS: Urine Appearance Turbid; Urine Blood 3+ (Negative); Urine Color Yellow; Urine Ketones Negative (Negative); Urine Protein 2+(100 mg/dL) (Negative); Urine Red Blood Cell 3+(>10/hpf) (Absent); Urine Urobilinogen Negative (Negative); Urine White Blood Cell 3+(>20/hpf) (Absent)
[2018-01-20] MEDS ORDERED: Chlorthalidone TAB* 50 MG PO SCH ×2 (09:00)
[2018-01-20] MEDS ORDERED: Ascorbic Acid TAB* 500 MG PO SCH ×2 (09:00)
[2018-01-20] MEDS ORDERED: Phenytoin CAP(*) 100 MG CAP.ER PO SCH ×2 (09:00)
[2018-01-20] MEDS ORDERED: Ferrous Sulfate TAB* 325 MG PO SCH ×2 (09:00)
[2018-01-20] MEDS ORDERED: Insulin GLARGINE(*) 1 UNITS UNIT SUBCUT SCH (09:00)
[2018-01-20] MEDS: Insulin LISPRO* 1 UNITS UNIT SUBCUT SCH ×8 (09:13→21:20)
[2018-01-20] MEDS ORDERED: Phenytoin CAP(*) 100 MG CAP.ER PO ONE (09:26)
--- NOTE | 2018-01-20 09:32 | RAD ---
Indication: Seizure. Previous craniotomy with tumor excision. Comparison: January 17, 2018 Technique: Noncontrast CT vertex of skull through foramen magnum. Report: Unchanged region of laboy matter white matter obscuration and limited regional sulcal effacement subjacent to the RIGHT para midline vertex craniectomy site. Unremarkable ventricles and basal cisterns. Negative for intra or extra-axial hemorrhage. Unremarkable orbital contents. No suspicious calvarial or skull base lesions evident. Small fluid level at the partially visualized LEFT maxillary sinus as on the prior exam. Retained secretions at the sphenoid sinuses as on the prior exam. Clear mastoid air spaces. Cutaneous juanita at the vertex of the scalp. No loculated scalp fluid collection evident. IMPRESSION: #. Postsurgical change of recent craniectomy. Unchanged region of laboy matter white matter obscuration and limited regional sulcal effacement subjacent to the RIGHT para midline vertex craniectomy site without midline shift or downward herniation. #. No new superimposed acute intracranial process evident. #. Mild paranasal sinus disease without significant change.
[2018-01-20] MEDS: Chlorthalidone TAB* 50 MG PO SCH (09:38)
[2018-01-20] MEDS: levETIRAcetam TAB* 500 MG PO SCH ×2 (09:39→21:32)
[2018-01-20] MEDS: Ferrous Sulfate TAB* 325 MG PO SCH (09:39)
[2018-01-20] MEDS: Phenytoin CAP(*) 100 MG CAP.ER PO SCH ×2 (09:40→21:33)
[2018-01-20] MEDS: Dexamethasone TAB* 1 MG PO SCH ×3 (09:40→21:33)
[2018-01-20] MEDS: glipiZIDE TAB* 5 MG PO SCH ×2 (09:40→18:18)
[2018-01-20] MEDS: Ascorbic Acid TAB* 500 MG PO SCH (09:40)
[2018-01-20] MEDS: Heparin VIAL(*) 5000 UNITS/ML VIAL (FIVE THOUSAND) SUBCUT SCH ×2 (09:44→21:34)
[2018-01-20] MEDS: Docusate CAP* 100 MG PO SCH ×2 (09:52→21:30)
--- NOTE | 2018-01-20 10:21 | PN ---
Progress Note Date of Service: 01/20/18 Note: MARKIE LANDRY was visited. Nursing and therapy notes read and reviewed. No chest pain, shortness of breath or abdominal pain. He feels good. Last night had 2 seizure events. 1st 45-50 seconds and 2nd 5-6 minutes. He was conscious throughout. With the second there was some neck/head twitch to the left. This had happened before. He received a loading IV dose of dilantin and got CT Head that did not show anything new. He also got 1 dose of 0.5mg iv ativan. Rest of the night was uneventful. He was seen by Dr. Craft this morning. His says he has an outpatient oncology f/u appt on Monday at 8am. This morning he was hypoglycemic. Current Medications: Active Medications Generic Name Dose Route Start Last Admin Trade Name Freq PRN Reason Stop Dose Admin Acetaminophen 650 mg 01/19/18 11:25 01/19/18 23:16 Tylenol Tab* PO 650 mg Q4H PRN Administration FEVER > 101 Ascorbic Acid 500 mg 01/20/18 09:00 01/20/18 09:40 Vitamin C Tab* PO 500 mg DAILY [facility]URA Administration Atorvastatin Calcium 40 mg 01/19/18 21:00 01/19/18 21:31 Lipitor* PO 40 mg 2100 [facility] Administration Chlorthalidone 25 mg 01/20/18 09:00 01/20/18 09:38 [place] Tab* PO 25 mg DAILY LAURA Administration Dexamethasone 2 mg 01/19/18 14:00 01/20/18 09:40 Decadron Tab* PO 2 mg TID LAURA Administration Dextrose 12.5 gm 01/19/18 11:25 D50w Syringe 50 Ml* IV PUSH .FOR FS < 60 - SS PRN FS < 60 Diltiazem HCl 240 mg 01/19/18 21:00 01/19/18 21:30 Cardizem Cd Cap* PO 240 mg BEDTIME LAURA Administration Docusate Sodium 100 mg 01/19/18 21:00 01/20/18 09:52 Colace Cap* PO 100 mg BID LAURA Administration Ferrous Sulfate 325 mg 01/20/18 09:00 01/20/18 09:39 Ferrous Sulfate Tab* PO 325 mg DAILY LAURA Administration Glipizide 10 mg 01/19/18 17:00 01/20/18 09:40 Glucotrol Tab* PO 10 mg 0800,1700 [facility] Administration Heparin Sodium (Porcine) 5,000 units 01/19/18 21:00 01/20/18 09:44 Heparin Vial(*) SUBCUT 5,000 units Q12HR LA[facility]A Administration Insulin Glargine 25 units 01/20/18 09:00 01/20/18 09:52 Lantus(*) SUBCUT 25 units QAM LAURA Administration Insulin Human Lispro 0 units 01/19/18 11:30 01/20/18 09:42 Humalog* SUBCUT 4 unit ACHS [facility] Administration Protocol Insulin Human Lispro 0 units 01/19/18 11:30 01/20/18 09:13 Humalog* SUBCUT Not Given [facility] Protocol Levetiracetam 1,000 mg 01/19/18 21:00 01/20/18 09:39 Keppra Tab* PO 1,000 mg BID LAURA Administration Melatonin 3 mg 01/19/18 11:25 01/19/18 21:43 Melatonin PO 3 mg BEDTIME PRN Administration SLEEP Protocol Omeprazole 20 mg 01/19/18 21:00 01/19/18 21:30 Prilosec Cap* PO 20 mg BEDTIME LAURA Administration Oxycodone HCl 5 mg 01/19/18 11:25 01/20/18 03:46 Roxycodone Tab* PO 5 mg Q6H PRN Administration HEADACHE/DISCOMFORT Phenytoin Sodium 100 mg 01/20/18 09:00 01/20/18 09:40 Dilantin Cap(*) PO 100 mg DAILY LAURA Administration Phenytoin Sodium 200 mg 01/19/18 21:00 01/19/18 21:31 Dilantin Cap(*) PO 200 mg BEDTIME LAURA Administration Trazodone HCl 50 mg 01/19/18 21:00 01/19/18 21:32 Desyrel Tab* PO 50 mg BEDTIME LAURA Administration Warfarin Sodium 5 mg 01/20/18 17:00 Coumadin Tab(*) PO DAILY@1700 [facility] Protocol Vital Signs: Vital Signs Temp Pulse Resp BP Pulse Ox 98.6 F 60 18 140/63 100 01/20/18 05:41 01/20/18 05:41 01/20/18 05:46 01/20/18 05:41 01/20/18 05:41 Lab Results: Laboratory Results - last 24 hr 01/19/18 01/19/18 01/19/18 05:55 12:05 16:45 WBC RBC Hgb Hct MCV MCH MCHC RDW Plt Count MPV Neut % (Auto) Lymph % (Auto) [place] % (Auto) Eos % (Auto) Baso % (Auto) Absolute Neuts (auto) Absolute Lymphs (auto) Absolute Monos (auto) Absolute Eos (auto) Absolute Basos (auto) Absolute Nucleated RBC Nucleated RBC % INR (Anticoag Therapy) Sodium Potassium Chloride Carbon Dioxide Anion Gap BUN Creatinine Est GFR ( Amer) Est GFR (Non-Af Amer) BUN/Creatinine Ratio Glucose POC Glucose (mg/dL) 347 H 200 H Calcium Total Bilirubin AST ALT Alkaline Phosphatase Total Protein Albumin Globulin Albumin/Globulin Ratio Urine Color Yellow Urine Appearance Turbid Urine pH 5.0 Ur Specific [place] 1.010 Urine Protein 2+(100 mg/dl) A Urine Ketones Negative Urine Blood 3+ A Urine Nitrate Negative Urine Bilirubin Negative Urine Urobilinogen Negative Ur Leukocyte Esterase 3+ A Urine WBC (Auto) 3+(>20/hpf) A Urine RBC (Auto) 3+(>10/hpf) A Urine Bacteria Absent Urine Yeast Present A Urine Glucose Negative Phenytoin 01/19/18 01/20/18 01/20/18 20:24 05:36 05:36 WBC 10.1 RBC 2.98 L Hgb 8.3 L Hct 25 L MCV 84 MCH 28 MCHC 33 RDW 16 H Plt Count 279 MPV 8.3 Neut % (Auto) 88.3 H Lymph % (Auto) 5.5 L [place] % (Auto) 6.0 Eos % (Auto) 0 Baso % (Auto) 0.2 Absolute Neuts (auto) 8.9 H Absolute Lymphs (auto) 0.6 L Absolute Monos (auto) 0.6 Absolute Eos (auto) 0 Absolute Basos (auto) 0 Absolute Nucleated RBC 0 Nucleated RBC % 0 INR (Anticoag Therapy) 1.82 H Sodium Potassium Chloride Carbon Dioxide Anion Gap BUN Creatinine Est GFR ( Amer) Est GFR (Non-Af Amer) BUN/Creatinine Ratio Glucose POC Glucose (mg/dL) 157 H Calcium Total Bilirubin AST ALT Alkaline Phosphatase Total Protein Albumin Globulin Albumin/Globulin Ratio Urine Color Urine Appearance Urine pH Ur Specific [place] Urine Protein Urine Ketones Urine Blood Urine Nitrate Urine Bilirubin Urine Urobilinogen Ur Leukocyte Esterase Urine WBC (Auto) Urine RBC (Auto) Urine Bacteria Urine Yeast Urine Glucose Phenytoin 01/20/18 01/20/18 05:36 07:58 WBC RBC Hgb Hct MCV MCH MCHC RDW Plt Count MPV Neut % (Auto) Lymph % (Auto) [place] % (Auto) Eos % (Auto) Baso % (Auto) Absolute Neuts (auto) Absolute Lymphs (auto) Absolute Monos (auto) Absolute Eos (auto) Absolute Basos (auto) Absolute Nucleated RBC Nucleated RBC % INR (Anticoag Therapy) Sodium 136 Potassium 5.0 Chloride 108 Carbon Dioxide 17 L Anion Gap 11 BUN 82 H Creatinine 2.91 H Est GFR ( Amer) 25.8 Est GFR (Non-Af Amer) 21.4 BUN/Creatinine Ratio 28.2 H Glucose 55 L POC Glucose (mg/dL) 67 L Calcium 8.9 Total Bilirubin 0.20 AST 10 L ALT 7 Alkaline Phosphatase 59 Total Protein 6.6 Albumin 3.4 Globulin 3.2 Albumin/Globulin Ratio 1.1 Urine Color Urine Appearance Urine pH Ur Specific [place] Urine Protein Urine Ketones Urine Blood Urine Nitrate Urine Bilirubin Urine Urobilinogen Ur Leukocyte Esterase Urine WBC (Auto) Urine RBC (Auto) Urine Bacteria Urine Yeast Urine Glucose Phenytoin 6.2 L Exam: GEN: No acute distress. Alert and appropriate. LUNGS: clear to auscultation bilaterally. CV: regular rate and rhythm ABD: + bowel sounds, soft, non-tender, non-distended EXT: no edema. He is lacking full ROM in his left hand and fingers at mcps, pips, dips. SKIN: juanita on scalp c/d/i NEURO: absent left shoulder shrug. 0/5 LUE motor (yesterday had trace finger flexion). 4/5 left knee extension and ankle DF. RUE and RLE motor 5/5. Sensation intact. CT Brain w/o contrast 01/19/18 showed no new changes. No hemorrhage or acute infarct. Post-operative changes as before. Assessment/Plan: 72yo man s/p craniotomy for brain metastasis from prostate cancer #s/p craniotomy - f/u with Dr. Infante. #Seizures - Not therapeutic on dilantin. Appreciate neurology follow-up. Received additional po dilatin this morning and will get another level tomorrow morning. On decadron 2mg tid. If gets additional seizures will increase decadron to minimize any effect of edema. He does not have trace finger movements this morning that he had yesterday, but CT is stable. May be edema effect, but will wait on increasing decadron for now. #Insulin dependent diabetes mellitus - hypoglycemic this morning. I am increasing AM lantus to 25u and will d/c pm dose. Continue carb counting and ssI. Yesterday was first day off IV steroids and on oral, so this may be having an effect. #DVT ppx with h/o DVT and paroxysmal atrial fibrillation - on sc heparin and coumadin. Daily INR. D/C sc heparin when therapeutic. Bump in INR today. Will cut back coumadin to 5mg (home dose was 5mg qday except 1 day of 7.5mg). INR in AM. May be a bit unpredictable with dilantin and potentially antibiotics if needed. #Question UTI - Urinalysis positive. He was already treated for UTI in hospital. Await cultures and sensitivities unless he is febrile. He may be colonized with chronic jarrell. #Chronic anemia - continue iron. Follow labs. #Metastatic prostate cancer - Will call oncology to see if he can be seen in hospital instead of outpatient appt. Dr. Lancaster will also see. I spoke to him . #Paroxysmal atrial fibrillation - continue cardizem and coumadin. #Hemiplegia - continue PT/OT. #Advanced directives - DNR. is HCP. #Estimated LOS - anticipate d/c on 01/26/18. 01/20/18 10:23
[2018-01-20] MEDS: Warfarin TAB(*) 5 MG PO SCH (18:18)
[2018-01-20] MEDS ORDERED: LORazepam INJ* 2 MG/ML 1 ML VIAL IV PUSH PRN (20:53)
[2018-01-20] MEDS: Omeprazole CAP* 20 MG PO SCH (21:30)
[2018-01-20] MEDS: traZODone TAB* 50 MG TAB PO SCH (21:31)
[2018-01-20] MEDS: Atorvastatin* 40 MG TAB PO SCH (21:31)
[2018-01-20] MEDS: Diltiazem CD CAP* 240 MG PO SCH (21:32)
[2018-01-21] MEDS: oxyCODONE TAB* 5 MG TAB PO PRN ×2 (00:05→20:21)
[2018-01-21 06:28] LABS: INR 2.39 (0.77-1.02)
[2018-01-21] MEDS ORDERED: Insulin GLARGINE(*) 1 UNITS UNIT SUBCUT SCH (09:00)
[2018-01-21] MEDS: Ascorbic Acid TAB* 500 MG PO SCH (09:13)
[2018-01-21] MEDS: levETIRAcetam TAB* 500 MG PO SCH ×2 (09:13→20:24)
[2018-01-21] MEDS: Docusate CAP* 100 MG PO SCH ×2 (09:13→20:23)
[2018-01-21] MEDS: Ferrous Sulfate TAB* 325 MG PO SCH (09:13)
[2018-01-21] MEDS: Dexamethasone TAB* 1 MG PO SCH ×3 (09:13→20:23)
[2018-01-21] MEDS: Phenytoin CAP(*) 100 MG CAP.ER PO SCH ×2 (09:14→20:22)
[2018-01-21] MEDS: Chlorthalidone TAB* 50 MG PO SCH (09:15)
[2018-01-21] MEDS: Heparin VIAL(*) 5000 UNITS/ML VIAL (FIVE THOUSAND) SUBCUT SCH (09:17)
[2018-01-21] MEDS: Insulin LISPRO* 1 UNITS UNIT SUBCUT SCH ×5 (09:25→21:12)
[2018-01-21] MEDS: glipiZIDE TAB* 5 MG PO SCH ×2 (09:26→19:20)
--- NOTE | 2018-01-21 10:34 | PN ---
Progress Note Date of Service: 01/21/18 Note: MARKIE LANDRY was visited. Nursing notes read and reviewed. No seizure events last 24hrs. He had hypoglycemia this morning but no symptoms. No chest pain, shortness of breath or abdominal pain. Family visiting and had questions about managing seizures at home and future treatments. Also has longstanding lump in right axilla area that they think is enlarging. Current Medications: Active Medications Generic Name Dose Route Start Last Admin Trade Name Freq PRN Reason Stop Dose Admin Acetaminophen 650 mg 01/19/18 11:25 01/19/18 23:16 Tylenol Tab* PO 650 mg Q4H PRN Administration FEVER > 101 Ascorbic Acid 500 mg 01/20/18 09:00 01/21/18 09:13 Vitamin C Tab* PO 500 mg DAILY LAURA Administration Atorvastatin Calcium 40 mg 01/19/18 21:00 01/20/18 21:31 Lipitor* PO 40 mg 2100 [facility] Administration Chlorthalidone 25 mg 01/20/18 09:00 01/21/18 09:15 [place] Tab* PO 25 mg DAILY LAURA Administration Dexamethasone 2 mg 01/19/18 14:00 01/21/18 09:13 Decadron Tab* PO 2 mg TID LAURA Administration Dextrose 12.5 gm 01/19/18 11:25 D50w Syringe 50 Ml* IV PUSH .FOR FS < 60 - SS PRN FS < 60 Diltiazem HCl 240 mg 01/19/18 21:00 01/20/18 21:32 Cardizem Cd Cap* PO 240 mg BEDTIME LAURA Administration Docusate Sodium 100 mg 01/19/18 21:00 01/21/18 09:13 Colace Cap* PO 100 mg BID LAURA Administration Ferrous Sulfate 325 mg 01/20/18 09:00 01/21/18 09:13 Ferrous Sulfate Tab* PO 325 mg DAILY [facility]URA Administration Glipizide 10 mg 01/21/18 17:00 Glucotrol Tab* PO 0800,1700 [facility] Insulin Human Lispro 0 units 01/19/18 11:30 01/21/18 09:25 Humalog* SUBCUT Not Given ACHS [facility] Protocol Levetiracetam 1,000 mg 01/19/18 21:00 01/21/18 09:13 Keppra Tab* PO 1,000 mg BID [facility] Administration Lorazepam 0.5 mg 01/20/18 20:53 Ativan Inj* IV PUSH Q4H PRN seizure Melatonin 3 mg 01/19/18 11:25 01/19/18 21:43 Melatonin PO 3 mg BEDTIME PRN Administration SLEEP Protocol Omeprazole 20 mg 01/19/18 21:00 01/20/18 21:30 Prilosec Cap* PO 20 mg BEDTIME LAURA Administration Oxycodone HCl 5 mg 01/19/18 11:25 01/21/18 00:05 Roxycodone Tab* PO 5 mg Q6H PRN Administration HEADACHE/DISCOMFORT Phenytoin Sodium 100 mg 01/20/18 09:00 01/21/18 09:14 Dilantin Cap(*) PO 100 mg DAILY LAURA Administration Phenytoin Sodium 200 mg 01/19/18 21:00 01/20/18 21:33 Dilantin Cap(*) PO 200 mg BEDTIME LAURA Administration Trazodone HCl 50 mg 01/19/18 21:00 01/20/18 21:31 Desyrel Tab* PO 50 mg BEDTIME LAURA Administration Warfarin Sodium 5 mg 01/20/18 17:00 01/20/18 18:18 Coumadin Tab(*) PO 5 mg DAILY@1700 [facility] Administration Protocol Vital Signs: Vital Signs Temp Pulse Resp BP Pulse Ox 97.8 F 65 18 146/58 96 01/21/18 05:02 01/21/18 05:02 01/21/18 05:02 01/21/18 05:02 01/21/18 05:02 Lab Results: Laboratory Results - last 24 hr 01/20/18 01/20/18 01/20/18 11:46 16:55 17:24 INR (Anticoag Therapy) POC Glucose (mg/dL) 124 H 50 L 75 Glucose Meter Confirm Phenytoin 01/20/18 01/21/18 01/21/18 20:23 06:03 06:03 INR (Anticoag Therapy) 2.39 H POC Glucose (mg/dL) 137 H Glucose Meter Confirm Phenytoin 9.0 L 01/21/18 01/21/18 01/21/18 07:12 07:25 07:37 INR (Anticoag Therapy) POC Glucose (mg/dL) 37 L* 52 L Glucose Meter Confirm 35 L* Phenytoin 01/21/18 07:55 INR (Anticoag Therapy) POC Glucose (mg/dL) 93 Glucose Meter Confirm Phenytoin Exam: GEN: No acute distress. Alert and appropriate. LUNGS: clear to auscultation bilaterally. CV: regular rate and rhythm ABD: + bowel sounds, soft, non-tender, non-distended EXT: no edema. He is lacking full ROM in his left hand and fingers at mcps, pips, dips. I reviewed with family doing some flexion ROM. SKIN: juanita on scalp c/d/i. Lesion on pinna of left posterior ear. NEURO: absent left shoulder shrug. 0/5 LUE motor. 4/5 left knee extension and ankle DF. RUE and RLE motor 5/5. Sensation intact. Assessment/Plan: 72yo man s/p craniotomy for brain metastasis from prostate cancer #s/p craniotomy - f/u with Dr. Infante. Still has juanita in. #Seizures - Not therapeutic on dilantin, but no seizures in last 24hrs. After seizures 01/19 PM lost left hand trace finger flexion. CT Brain w/o contrast 01/19 showed no new changes. Appreciate neurology follow-up. On decadron 2mg tid. #Insulin dependent diabetes mellitus - hypoglycemic this morning. Discontinue lantus and carb counting insulin. Holding AM glipizide. #DVT ppx with h/o DVT and paroxysmal atrial fibrillation - INR therapeutic on coumadin. Discontinue sc heparin. Continue daily INR for now as he is on dilantin. #Question UTI - Urinalysis positive. Await cultures and sensitivities unless he is febrile. He may be colonized with chronic jarrell. Consider ID input pending culture results. #Chronic anemia - continue iron. Follow labs. #Metastatic prostate cancer - I spoke to Dr. Daniel who will see him on unit tomorrow. Dr. Lancaster will also see. #Paroxysmal atrial fibrillation - continue cardizem and coumadin. #Hemiplegia - continue PT/OT. #Left ear lesion and right axilla mass - I advised them to d/w Dr. Daniel need for any other work up. #Advanced directives - DNR. is HCP. #Estimated LOS - anticipate d/c on 01/26/18. 01/21/18 10:35
[2018-01-21] MEDS ORDERED: glipiZIDE TAB* 5 MG PO ONE (11:45)
[2018-01-21] MEDS ORDERED: glipiZIDE TAB* 5 MG PO SCH (17:00)
[2018-01-21] MEDS: Warfarin TAB(*) 5 MG PO SCH (19:20)
[2018-01-21] MEDS: Diltiazem CD CAP* 240 MG PO SCH (20:19)
[2018-01-21] MEDS: Omeprazole CAP* 20 MG PO SCH (20:21)
[2018-01-21] MEDS: Atorvastatin* 40 MG TAB PO SCH (20:22)
[2018-01-21] MEDS: traZODone TAB* 50 MG TAB PO SCH (21:11)
[2018-01-21] MEDS: Acetaminophen TAB* 325 MG PO PRN (22:45)
--- NOTE | 2018-01-22 03:50 | PN ---
CC: Dr. Landon Morataya; Dr. Lizett Mckeon; Dr. Lancaster, Radiation Oncology; Dr. Daniel; Dr. Amando Stein; Dr. Infante * FOLLOWUP NOTE: DATE OF SERVICE: 01/20/18 HISTORY OF PRESENT ILLNESS: Landon Montilla is a 72-year-old gentleman admitted to [facility] on 01/08/18 with a history of progressive left-sided weakness with seizure noted in the emergency room by Dr. Morataya with spontaneous left upper extremity movement and no loss of consciousness. He was found to have a 2.3-cm right frontal lobe mass. UTI was noted on admission. His pathology revealed metastatic prostate cancer and he went on to have surgery with Dr. Infante. His indicates understanding that there is still some residual tumor. Dr. Mckeon indicates that Dr. Lancaster is consulting. believes Dr. Daniel will be seeing the patient on Monday. He had an EEG while in hospital, which was normal. He had been started on Keppra in the emergency room and is on 1000 mg p.o. b.i.d. in the setting of chronic kidney disease. On 01/08/18, he had repeat left upper extremity shaking. Dilantin was started 100 mg in the morning, 200 at night. Last night, 2 seizures were noted, one lasting less than a minute, the second for about 5 minutes with left upper extremity shaking and no loss of consciousness. He went on to have a CT of the brain, which showed no significant change, with stable edema. He is on Decadron 2 mg p.o. t.i.d. Additional 500 mg of phenytoin was provided IV last night and his level this morning was 6.2. He had a levetiracetam level on 01/17, which was 51.6. He denies any change in mood. He feels good this morning. Of note, Dr. Mckeon indicates need for further change in medications for diabetes in the setting of Decadron therapy. The patient is also on warfarin for a history of atrial fibrillation. He also has a history of DVT after right hip surgery. Warfarin was recently restarted. PAST MEDICAL HISTORY: Mr. Montilla has a history of prostate cancer; diabetes; hypertension; hyperlipidemia; chronic kidney disease, stage 4; B12 deficiency; anemia; atrial fibrillation, on Coumadin; GERD; obesity. PAST SURGICAL HISTORY: Previous surgeries include lumbar laminectomy; cervical surgery with Dr. Guillaume; bilateral cataract repair; nephrolithiasis, with kidney stents; right hip arthroplastic surgery complicated by DVT. He also has had a history of vascular surgery. MAR: reviewed ALLERGIES: Include CODEINE, HYDROCHLOROTHIAZIDE, IMIPRAMINE, and LISINOPRIL. REVIEW OF SYSTEMS: Of note, there has been no change in thinking. No change in mood. No chest pain, chest pressure, palpation, or shortness of breath. The only head pain he had was when he took his shirt over his head. He denies any new numbness or weakness on the right hand side. In the left arm, he indicates that he had increased weakness prior to surgery and there was some weakness on his legs. He feels somewhat unstable on his legs. He denies any new numbness. He is yet to have a bowel movement after surgery. He has an indwelling catheter for urination. There have been no new rashes or drenching night sweats. He denies any history of fevers. Remainder of 10 review of systems was incorporated into HPI or negative. PHYSICAL EXAMINATION: Mr. Montilla was sitting in a chair with his at bedside. His most recent vitals included temperature of 98.6 degrees Fahrenheit , pulse of 60 and regular, respiratory rate 18, saturation was 100% on room, and blood pressure was 140/63. He had a regular cardiac rhythm. His lungs were clear to auscultation. There was no carotid bruit. Barbara were noted on his scalp with no redness or erythema. He did have some pain in that area when taking his shirt over his head last night. His pupils were equal and responsive to light. He had full extraocular movements with no nystagmus. Full dodson to confrontation. His facial expression, sensation, and hearing were equal. Palate was upgoing. Tongue was midline. Sternocleidomastoid and trapezius were 5/5 in strength. He was awake, alert, and articulate. Had normal language function, adequate fund of knowledge. There was no right pronator drift. He had full strength in his right upper extremity. His left upper extremity had no movement and there was decreased tone. In his right lower extremity, he was strong and his left lower extremity had weakness and left hip flexion at 4+/5. Knee flexion, extension, and foot dorsiflexion were strong. Reflexes were 2+ at the right triceps and brachioradialis, 1+ at the left triceps and brachioradialis, 2+ at the knees, absent at the ankles. There was no asymmetry to pinprick, cold, or light touch. DIAGNOSTIC STUDIES/LAB DATA: Includes review of the patient's chart. This morning, he has had a CBC with normal white count at 10.1, hemoglobin and hematocrit were 8.3 and 25, and platelets were 279. His metabolic panel showed an elevated BUN at 82 and creatinine at 2.91 with estimated GFR at 21.4. His glucose this morning was low. Liver function tests were within normal limits. His phenytoin level this morning was 6.2 and his levetiracetam level on 01/17/[address] of the brain was read as showing postop changes with no change in edema noted. This film was reviewed directly compared to previous and I agree with the interpretation. Also reviewed were previous CTs and MRI of brain. IMPRESSION AND PLAN: A 72-year-old gentleman with a history of simple partial seizures in the setting of prostate cancer with metastasis to the brain, status post resection with Dr. Infante on 01/15/18 with residual edema on CT while taking Decadron. In regards to seizure control, he is on Keppra 1000 mg p.o. b.i.d., escalation of dose is limited by renal failure, his level was 51.6 on 01/17/18 and a repeat trough level is pending. Last night, an additional 500 mg of Dilantin was given and level this morning was 6.2. We will give further oral load with 500 mg now and then continue on the 200 mg at night, 100 mg in the morning with a trough level in the morning. There is potential for interaction of Dilantin with Coumadin. In the future, it should be the first medication to taper. No side effects have been noted to either Keppra or Dilantin to date. The residual edema and postop edema may be contributing to weakness and seizures. He is currently on Decadron [address] Mckeon has indicated that the Decadron has made his glucose control more difficult. At this point, the CT of the brain is showing stable edema. With increased seizures, I would increase his Decadron. TIME SPENT: Over 60 minutes was spent in direct patient care. Case was discussed with Dr. Mckeon. Over 50% of the time spent with the patient was in education of both he and his . We talked about diagnosis, we talked about seizures, what they are, why they can be caused, we talked about edema, the medications being given, we talked about the medications for seizures and the potential benefits and side effects. All questions were answered. [id number]/[facility] #: [id number] NIKKI
--- NOTE | 2018-01-22 03:58 | PN ---
CC: Dr. Landon Morataya; Dr. Brennan Daniel; Dr. Lancaster, Radiation/Oncology. * PROGRESS NOTE: DATE OF SERVICE: 01/21/18. HISTORY OF PRESENT ILLNESS: Overnight, there have been no seizures. Patient feels well. He denies any new numbness or weakness. He still has not regained the small amount of movement he had in his left hand since the seizure. He did receive an extra 500 mg of Dilantin and his trough phenytoin level this morning was 9. PHYSICAL EXAMINATION: His most recent temperature was 97.8 degrees temporal, pulse was 65 and regular, respiratory rate 18, saturation was 96%, blood pressure was 146/58. He had regular cardiac rhythm. His lungs were clear to auscultation. He was awake, alert, oriented, knew his family members, was able to articulate his concerns. He had full extraocular movements with no nystagmus. His dodson were full to confrontation. His facial expression was symmetric. There was no dysarthria. With the right arm, there was no pronator drift and he had full strength. In the left arm, there was no movement noted. At one point in question, the middle finger is slightly moving, but that was unclear. In the right lower extremity, he was strong. In the left lower extremity, he had hip flexion weakness at approximately 4+/5. He denied any new numbness. MEDICATIONS: Include: 1. Acetaminophen 650 mg p.o. q.4 hours p.r.n. fever. 2. Vitamin C 500 mg p.o. daily. 3. Lipitor 40 mg p.o. q. 2100. 4. Chlorthalidone 25 mg p.o. daily. 5. Dexamethasone 2 mg p.o. t.i.d. 6. Dextrose 12.5 g IV push for fingerstick less than 60. 7. Diltiazem 250 mg p.o. q.h.s. 8. Docusate 100 mg p.o. b.i.d. 9. Ferrous sulfate 325 mg p.o. daily. 10. Glipizide 10 mg p.o. b.i.d. 11. Insulin Humalog per order. 12. Levetiracetam 1000 mg p.o. b.i.d. 13. Lorazepam 0.5 mg IV q.4 hours p.r.n. seizure. 14. Melatonin 3 mg p.o. q.h.s. p.r.n. sleep. 15. Omeprazole 20 mg p.o. q.p.m. 16. Oxycodone 5 mg p.o. q.6 hours p.r.n. headache. 17. Phenytoin 200 mg p.o. q.p.m. and 100 mg p.o. q.a.m. 18. Trazodone 50 mg p.o. q.h.s. 19. Warfarin 5 mg p.o. daily. DATA: Includes phenytoin level from this morning of 9.0, his INR was 2.39. His point of care glucose dropped to as low as 35. IMPRESSION: A 72-year-old gentleman with history of metastatic prostate cancer status post resection with residual edema on CT who has had a course complicated by partial seizures with left arm jerking and no loss of consciousness. He is on levetiracetam 1000 mg p.o. b.i.d. and level is pending. His Dilantin remains at 100 mg in the morning, 200 at night. This level is 9. At this point, we will continue on current dosing. If he has a breakthrough seizure, would add an additional 300 mg of Dilantin and continue then on current dosing and check a trough level. We will ask Dr. Valdez to follow up tomorrow as he is coming in as Neuro Hospitalist for the week. Education was given to family on how seizure and edema may be playing a role in increased left upper extremity weakness. He had had slight movements of his fingers prior to the seizure. We also spoke about the role edema may be playing in creating seizure. He has seen Dr. Lancaster and will be seeing Dr. Daniel tomorrow. He will need ongoing care as an outpatient and I will suggest follow up with Dr. Morataya in approximately 1 to 2 weeks after discharge. Discharge is estimated at the end of this coming week. TIME SPENT: Over 30 minutes was spent in patient's care, patient was surrounded by family and all questions were answered. His case was discussed with Dr. Mckeon, attending. [id number]/[facility] #: [id number] NIKKI
[2018-01-22] MEDS: Acetaminophen TAB* 325 MG PO PRN ×3 (04:59→22:36)
[2018-01-22] MEDS: Ferrous Sulfate TAB* 325 MG PO SCH (09:01)
[2018-01-22] MEDS: Dexamethasone TAB* 1 MG PO SCH ×3 (09:01→20:01)
[2018-01-22] MEDS: Phenytoin CAP(*) 100 MG CAP.ER PO SCH ×2 (09:01→20:01)
[2018-01-22] MEDS: Ascorbic Acid TAB* 500 MG PO SCH (09:01)
[2018-01-22] MEDS: glipiZIDE TAB* 5 MG PO SCH ×2 (09:02→17:18)
[2018-01-22] MEDS: Docusate CAP* 100 MG PO SCH ×2 (09:02→20:02)
[2018-01-22] MEDS: Insulin LISPRO* 1 UNITS UNIT SUBCUT SCH ×4 (09:02→20:47)
[2018-01-22] MEDS: levETIRAcetam TAB* 500 MG PO SCH ×2 (09:02→20:01)
[2018-01-22 09:07] LABS: INR 2.61 (0.77-1.02)
[2018-01-22] MEDS: Chlorthalidone TAB* 50 MG PO SCH (09:10)
[2018-01-22] MEDS ORDERED: Fosphenytoin(*) 500 MG in NS 0.9% 50 ML* 50 ML IVPB ONE (14:00)
--- NOTE | 2018-01-22 16:28 | PN ---
NEUROLOGY PROGRESS NOTE: DATE OF SERVICE: 01/22/18 PRIMARY PROVIDER: Dr. Lizett Mckeon. BRIEF HISTORY OF PRESENT ILLNESS: This is a pleasant 72-year-old man with history of metastatic cancer, mets to the right cerebral hemisphere, status post resection with residual left hemiplegia of the upper extremity and left hemiparesis of the lower extremity with focal motor seizures. The patient is on Dilantin and levetiracetam. SUBJECTIVE: The patient is in good spirit today. He is in physical therapy room exercising with the therapist. He denied any headaches or visual disturbance. He denied any seizure. His last seizure was thought to be on . REVIEW OF SYSTEMS: He denied any fevers or chills. He denied any chest pain or palpitations. He denied any worsening weakness, although he is questioning if his strength would ever come back in the left arm. LABORATORY DATA: INR of 2.61. Phenytoin obtained 01/21/18 showed a level of 9. Fvnqb-dl-bsdy glucose is 174. MEDICATIONS: 1. Acetaminophen. 2. Ascorbic acid. 3. Atorvastatin 40 mg nightly. 4. Dexamethasone 2 mg by mouth 3 times daily scheduled. 5. Diltiazem 240 mg by mouth at bedtime. 6. Glipizide 5 mg by mouth at 8:00 and 5 p.m. 7. Levetiracetam 1000 mg by mouth twice daily. 8. Melatonin 3 mg by mouth at bedtime. 9. Omeprazole 20 mg by mouth at bedtime. 10. Phenytoin 200 mg by mouth at bedtime and 100 by mouth daily. 11. Trazodone 50 mg at bedtime. 12. Warfarin 5 mg by mouth daily at 5 p.m. PHYSICAL EXAMINATION: Vitals: Temperature 97.8, pulse rate of 61, respiratory rate of 18, oxygen saturation 99, blood pressure 154/68. General: Well- developed, well-nourished man, in no acute distress. He is cooperative. Head: Healed scar with juanita around the midline of the skull with no evidence of erythema or discharge. Eyes: Conjunctiva/corneas are clear with no scleral icterus. Neck is supple and symmetrical with no carotid bruits. Lungs are clear to auscultation bilaterally, nonlabored breathing. Extremities: Normal range of motion with no cyanosis. Psychiatric Exam: Affect is broad and normal mood. He is easy to establish a rapport. He is thankful to everything that we have provided him here during the hospitalization. Neurologic Examination: Mental status; awake and alert, oriented to person, place, and time and general circumstances. Speech and language including expression, naming, and repetition were evaluated and found to be normal. Cranial Nerves: Pupils are equal, round, reactive to light. Extraocular muscles are intact. There is no facial asymmetry. Tongue is symmetrical and midline with no atrophy. Motor: He has complete plegia 0/5 strength in the left shoulder abduction, elbow flexion and extension, wrist extension and flexion, or finger abduction, flexion, or extension. He is able to elevate the left leg, has 4+/5 to hip flexion, knee flexion and extension, and ankle dorsiflexion and plantarflexion. He has got 5/5 strength in the right upper and lower extremities. Reflexes: Right/left brachioradialis 2/1, biceps 2/1, triceps 2/1 , patellar 2/3, ankle 0/0, plantar flexor/mute. Sensation is intact to light touch throughout. Coordination: Normal emzcmq-sa-asiq on the right. Unable to perform on the left. Gait: He was reported to able to walk 70 feet with assisting by the physical therapist. ASSESSMENT AND PLAN: Mr. Landon Montilla is a pleasant 72-year-old with metastatic disease, status post resection of an isolated right brain mass thought to be metastasis from prostate cancer. The patient is on Decadron. He developed focal motor seizures as a result of the tumor and surgery. The patient is also completely plegic on the left upper extremity. Partial motor seizures - he has been seizure free for the last more than 48 hours. He is on levetiracetam 1000 mg by mouth twice daily and phenytoin 100 mg in the morning and 200 at night by mouth daily. The patient is tolerating the medication without any known side effects. We are pending on levetiracetam level. I also requested to recheck the phenytoin level today. I placed an order for a total phenytoin level. The patient denied any seizure-like activity. He is aware of the seizures. I informed the patient that with physical therapy, he may regain some strength back in the left upper extremity, but if not, he should still continue to rehab the limb as much as possible. We discussed fall precautions. The patient is also seen by Dr. Lancaster and Dr. Daniel. He will follow up with Dr. Morataya in 1 to 2 weeks after discharge. I will continue to follow. TIME SPENT: I spent a total of 25 minutes and greater than 50% was spent directly reviewing the medical chart, obtaining history, examining the patient and discussing the treatment plan and prognosis with the patient. [id number]/CPS #: [id number] MTDD
--- NOTE | 2018-01-22 16:47 | PN ---
Progress Note Date of Service: 01/22/18 Note: MARKIE LANDRY was visited. Therapy notes read and reviewed. He has no movement in the left arm or hand. No further seizure activity. Neurology has ordered IV fosphenytoin. Current Medications: Active Medications Generic Name Dose Route Start Last Admin Trade Name Freq PRN Reason Stop Dose Admin Acetaminophen 650 mg 01/19/18 11:25 01/22/18 15:41 Tylenol Tab* PO 650 mg Q4H PRN Administration FEVER > 101 Ascorbic Acid 500 mg 01/20/18 09:00 01/22/18 09:01 Vitamin C Tab* PO 500 mg DAILY LAURA Administration Atorvastatin Calcium 40 mg 01/19/18 21:00 01/21/18 20:22 Lipitor* PO 40 mg 2100 LAURA Administration Chlorthalidone 25 mg 01/20/18 09:00 01/22/18 09:10 [place] Tab* PO 25 mg DAILY LAURA Administration Dexamethasone 2 mg 01/19/18 14:00 01/22/18 14:42 Decadron Tab* PO 2 mg TID LAURA Administration Dextrose 12.5 gm 01/19/18 11:25 D50w Syringe 50 Ml* IV PUSH .FOR FS < 60 - SS PRN FS < 60 Diltiazem HCl 240 mg 01/19/18 21:00 01/21/18 20:19 Cardizem Cd Cap* PO 240 mg BEDTIME LAURA Administration Docusate Sodium 100 mg 01/19/18 21:00 01/22/18 09:02 Colace Cap* PO 100 mg BID LAURA Administration Ferrous Sulfate 325 mg 01/20/18 09:00 01/22/18 09:01 Ferrous Sulfate Tab* PO 325 mg DAILY LAURA Administration Glipizide 5 mg 01/21/18 17:17 01/22/18 09:02 Glucotrol Tab* PO 5 mg 0800,1700 LAURA Administration Insulin Human Lispro 0 units 01/19/18 11:30 01/22/18 12:51 Humalog* SUBCUT 3 units ACHS LAURA Administration Protocol Levetiracetam 1,000 mg 01/19/18 21:00 01/22/18 09:02 Keppra Tab* PO 1,000 mg BID LAURA Administration Lorazepam 0.5 mg 01/20/18 20:53 Ativan Inj* IV PUSH Q4H PRN seizure Melatonin 3 mg 01/19/18 11:25 01/19/18 21:43 Melatonin PO 3 mg BEDTIME PRN Administration SLEEP Protocol Omeprazole 20 mg 01/19/18 21:00 01/21/18 20:21 Prilosec Cap* PO 20 mg BEDTIME LAURA Administration Oxycodone HCl 5 mg 01/19/18 11:25 01/21/18 20:21 Roxycodone Tab* PO 5 mg Q6H PRN Administration HEADACHE/DISCOMFORT Phenytoin Sodium 100 mg 01/20/18 09:00 01/22/18 09:01 Dilantin Cap(*) PO 100 mg DAILY LAURA Administration Phenytoin Sodium 200 mg 01/19/18 21:00 01/21/18 20:22 Dilantin Cap(*) PO 200 mg BEDTIME LAURA Administration Trazodone HCl 50 mg 01/19/18 21:00 01/21/18 21:11 Desyrel Tab* PO 50 mg BEDTIME LAURA Administration Warfarin Sodium 5 mg 01/20/18 17:00 01/21/18 19:20 Coumadin Tab(*) PO 5 mg DAILY@1700 LAURA Administration Protocol Vital Signs: Vital Signs Temp Pulse Resp BP Pulse Ox 98.1 F 88 18 144/77 96 01/22/18 15:35 01/22/18 15:35 01/22/18 16:40 01/22/18 15:35 01/22/18 16:40 Lab Results: Laboratory Results - last 24 hr 01/20/18 01/21/18 01/21/18 05:36 16:43 20:10 INR (Anticoag Therapy) POC Glucose (mg/dL) 140 H 198 H Phenytoin Levetiracetam 44.1 01/22/18 01/22/18 01/22/18 08:11 08:35 11:45 INR (Anticoag Therapy) 2.61 H POC Glucose (mg/dL) 174 H Phenytoin 7.1 L Levetiracetam 01/22/18 01/22/18 11:56 16:13 INR (Anticoag Therapy) POC Glucose (mg/dL) 274 H 268 H Phenytoin Levetiracetam Exam: GENERAL: No acute distress. Alert and appropriate. LUNGS: clear to auscultation bilaterally. HEART: regular rate and rhythm ABDOMEN: + bowel sounds, soft, non-tender, non-distended EXTREMITIES: no edema. SKIN: juanita on scalp c/d/i. Lesion on left posterior ear. NEUROLOGIC: No spontaneous movement left arm. 4/5 left knee extension and ankle DF. RUE and RLE motor 5/5. Sensation intact. Assessment/Plan: 1. S/P Craniotomy, resection of mass with left hemiplegia: f/u with Dr. Infante. Still has juanita in. PT/OT 2. Seizures: Dilantin level low, but no seizures in last 48hrs. IV Fosphenytoin ordered. Roger. Appreciate Neurology follow-up. On decadron 2mg tid. 3. Insulin dependent diabetes mellitus: . 4. DVT prophylaxis: INR therapeutic on coumadin. 5. Paroxysmal Atrial Fibrillation: Coumadin/Cardizem 6. Mar UTI: may need Diflucan. 7. Chronic anemia: continue iron. Follow labs. 8. Metastatic prostate cancer: Dr. Daniel to see him on unit. Dr. Lancaster will also see. 9. Left ear lesion and right axilla mass: Dr. Brandon follow up 10. Advanced directives: DNR. is HCP. 11. Estimated LOS: estimate d/c on 01/26/18. 01/22/18 17:01
[2018-01-22] MEDS: Warfarin TAB(*) 5 MG PO SCH (17:18)
--- NOTE | 2018-01-22 18:18 | PN ---
Progress Note - Progress Note Date of Service: 01/22/18 SOAP: Subjective: []Doing well today. Has no motor activity in left arm. Today in therapy had some difficulty with left leg but leg over past week has been fine. Eating well , not in pain. Has chronic Burgess. Presented with two days of LUE weakness. MRI with a large mass, extending into right frontal lobe, through skull and soft tissue component. Surgery 01/15/18 wth R0 resection. Tolerated well but w/o gain of function of LUE. Currently in PMRU. Pathology with Martha score 9, minimal staining of PSA, MSI negative, PD-1 0%. Bone scan and CT w/o other lesions. Acetaminophen (Tylenol Tab*) 650 mg PO Q4H PRN PRN Reason: FEVER > 101 Last Admin: 01/22/18 15:41 Dose: 650 mg Ascorbic Acid (Vitamin C Tab*) 500 mg PO DAILY [facility] Last Admin: 01/22/18 09:01 Dose: 500 mg Atorvastatin Calcium (Lipitor*) 40 mg PO 2100 [facility] Last Admin: 01/21/18 20:22 Dose: 40 mg Chlorthalidone (Hygroton Tab*) 25 mg PO DAILY [facility] Last Admin: 01/22/18 09:10 Dose: 25 mg Dexamethasone (Decadron Tab*) 2 mg PO TID [facility] Last Admin: 01/22/18 14:42 Dose: 2 mg Dextrose (D50w Syringe 50 Ml*) 12.5 gm IV PUSH .FOR FS < 60 - SS PRN PRN Reason: FS < 60 Diltiazem HCl (Cardizem Cd Cap*) 240 mg PO BEDTIME [facility] Last Admin: 01/21/18 20:19 Dose: 240 mg Docusate Sodium (Colace Cap*) 100 mg PO BID [facility] Last Admin: 01/22/18 09:02 Dose: 100 mg Ferrous Sulfate (Ferrous Sulfate Tab*) 325 mg PO DAILY [facility] Last Admin: 01/22/18 09:01 Dose: 325 mg Glipizide (Glucotrol Tab*) 5 mg PO 0800,1700 [facility] Last Admin: 01/22/18 17:18 Dose: 5 mg Insulin Human Lispro (Humalog*) 0 units SUBCUT ACHS [facility]; Protocol Last Admin: 01/22/18 17:24 Dose: 3 units Levetiracetam (Keppra Tab*) 1,000 mg PO BID [facility] Last Admin: 01/22/18 09:02 Dose: 1,000 mg Lorazepam (Ativan Inj*) 0.5 mg IV PUSH Q4H PRN PRN Reason: seizure Melatonin (Melatonin) 3 mg PO BEDTIME PRN; Protocol PRN Reason: SLEEP Last Admin: 01/19/18 21:43 Dose: 3 mg Omeprazole (Prilosec Cap*) 20 mg PO BEDTIME [facility]URA Last Admin: 01/21/18 20:21 Dose: 20 mg Oxycodone HCl (Roxycodone Tab*) 5 mg PO Q6H PRN PRN Reason: HEADACHE/DISCOMFORT Last Admin: 01/21/18 20:21 Dose: 5 mg Phenytoin Sodium (Dilantin Cap(*)) 100 mg PO DAILY [facility] Last Admin: 01/22/18 09:01 Dose: 100 mg Phenytoin Sodium (Dilantin Cap(*)) 200 mg PO BEDTIME [facility] Last Admin: 01/21/18 20:22 Dose: 200 mg Trazodone HCl (Desyrel Tab*) 50 mg PO BEDTIME [facility] Last Admin: 01/21/18 21:11 Dose: 50 mg Warfarin Sodium (Coumadin Tab(*)) 5 mg PO DAILY@1700 [facility]URA; Protocol Last Admin: 01/22/18 17:18 Dose: 5 mg Objective: [] Vital Signs Temp Pulse Resp BP Pulse Ox 98.1 F 88 18 144/77 96 01/22/18 15:35 01/22/18 15:35 01/22/18 16:40 01/22/18 15:35 01/22/18 16:40 HEENT w/ healing incision. OM moist. No LAD CTA RRR S1S2 +BS, no HSM Burgess EXT tr edema Neuro - no movement LUE, otherwise intact. Assessment: []72 year old with metastatic prostate cancer likley to skull with infiltration into TOWEL HEMMER and skin. Has had resection and found to have [place] 9 disease and recurrence occurred without significant change in PSA. Clear transition to more aggressive disease. Given single site of metastatic disease, sugery was optimal approach and for time being will focus on recovery. There is role for systemic therapy, either Abiraterone or Taxoatere, once he is recovered. Observation and treatment at next recurrence is also and option. Plan: [ ]1. Prostate Cancer. No intervention at this time. Will continue Lupron and consider systemic therapy in near future. 2. Anemia. Most likely from chronic disease and CRI. Given aggressive disease, marrow infiltration is also possible. Will consider bone marrow biopsy in future. Tx Hgb < 8.0 3. CRI. Progressive during admission, follow. 4. Will need follow up on discharge in Oncology.
[2018-01-22] MEDS ORDERED: Senna TAB PO PRN (19:54)
[2018-01-22] MEDS: Diltiazem CD CAP* 240 MG PO SCH (20:00)
[2018-01-22] MEDS: Atorvastatin* 40 MG TAB PO SCH (20:00)
[2018-01-22] MEDS: traZODone TAB* 50 MG TAB PO SCH (20:02)
[2018-01-22] MEDS: Omeprazole CAP* 20 MG PO SCH (20:02)
[2018-01-22] MEDS: oxyCODONE TAB* 5 MG TAB PO PRN (20:02)
[2018-01-22] MEDS: Melatonin 3 MG TAB PO PRN (20:02)
[2018-01-23] MEDS: Acetaminophen TAB* 325 MG PO PRN ×2 (05:25→22:21)
[2018-01-23 05:54] LABS: INR 3.18 (0.77-1.02)
[2018-01-23] MEDS: Insulin LISPRO* 1 UNITS UNIT SUBCUT SCH ×4 (07:46→20:55)
[2018-01-23] MEDS: levETIRAcetam TAB* 500 MG PO SCH ×2 (08:13→19:56)
[2018-01-23] MEDS: Phenytoin CAP(*) 100 MG CAP.ER PO SCH ×2 (08:13→19:57)
[2018-01-23] MEDS: Dexamethasone TAB* 1 MG PO SCH ×3 (08:14→19:57)
[2018-01-23] MEDS: Ferrous Sulfate TAB* 325 MG PO SCH (08:14)
[2018-01-23] MEDS: Chlorthalidone TAB* 50 MG PO SCH (08:14)
[2018-01-23] MEDS: Docusate CAP* 100 MG PO SCH ×2 (08:14→20:03)
[2018-01-23] MEDS: Ascorbic Acid TAB* 500 MG PO SCH (08:15)
[2018-01-23] MEDS: glipiZIDE TAB* 5 MG PO SCH ×2 (08:15→16:50)
--- NOTE | 2018-01-23 12:35 | PMRUTEAM ---
PMRU: Team Meeting Current Status: Nursing: Current Status Skin Deviations [superior Incision skull] Skin Deviations [Bilateral Rash Groin] Skin Deviation Description [ intact and healing well superior skull] Skin Deviation Description [ yeasty sore rash Bilateral Groin] Bladder Current Status indwelling jarrell Bowel Current Status took colace this am. incontinent of bm after Nutrition Current Status appetite good Medication Current Status needs reinforcement Physical Therapy: Current Status Bed Mobility Assistance Supervision Transfer Moblility Assistance Contact Guard Assist Transfer/Bed Mobility Straight Cane Recommended Devices Ambulation Assistance Contact Guard Assist/Min Assist Ambulation Assistive Devices Straight Cane Number of Feet Patient 70' Ambulated Stairs Assistance Min Assist Stairs Recommended Devices One Rail Number of Stairs 3 Curb Not Tested Occupational Therapy: Current Status Upper Body Dressing Max Asst Lower Body Dressing Max Asst,Total Assist Bathing Max Asst Toileting Mod Assist Toilet Transfer Contact Guard Assist,Min Assist Shower Transfer Contact Guard Assist,Min Assist Eating Supervision Rec Therapy: Current Status Summary of Assessment and RT assessment complete and pt. is aware of RT Clinical Impression services. Pt. has been pleasant, cooperative and engaged in leisure visits. Treatment Goals Pt. will engage in leisure activities while on the unit. Treatment Plan Provide RT services and encourage ivnolvement. Social Work: Current Status Discharge Plan return home with home care svs and family support Potential for Family Training pt's family are involved and supportive Anticipated Discharge Home Destination Discharge With home care svs and family support Nutrition: Current Status Monitoring Eating very well (100%). Challenging glycemic control - on decadron - and has experienced wide range of glucose levels, including significant hypoglycemia. Discussed w/staff and pt/ to avoid orange juice for hypoglycemia rx since pt at risk for hyperkalemia (5.0 01/20 - rising from 3.7 after kaexylate). Will provide pt/ with additional education r/t low K diet prior to d/c unless renal function improves significantly. Last BM 01/17 - ? additional rx needed. Goals: Physical Therapy: Initial Goals Bed Mobility Assistance Independent Transfer Mobility Assistance Independent Transfer/Bed Mobility Straight Cane,Small Base Quad Cane Recommended Devices Ambulation Independent Ambulation Recommended Devices Straight Cane,Small Base Quad Cane Ambulation Distance 150 Stairs Assistance Independent Stair Recommended Devices Quad Cane,One Rail Number of Stairs 5 Home Exercise Program Independent Assistance Physical Therapy: Updated Goals Transfer/Bed Mobility Straight Cane,Large Base Quad Cane,Small Base Quad Recommended Devices Cane Occupational Therapy: Initial Goals Goals to be Completed in (Days 7-10 days ) Upper Body Bathing Routine Minimal Contact Assist Lower Body Bathing Routine Moderate Assist Upper Body Dressing Routine Minimal Contact Assist Lower Body Dressing Routine Moderate Assist Toilet Hygeine and Clothing Modified Independent with Management Routine Toilet Transfer Routine Modified Independent with Step-In Shower Transfer Modified Independent with Routine Functional Transfers for ADL Modified Independent with Grooming Routine Modified Independent with Feeding Routine Modified Independent with Nursing: Goals Bladder Goal indwelling jarrell Bowel Goal independent Nutrition Goal 100% of all meals Medication Goal daughter helps at home Nutrition: Goals Intervention Goals 1. Maintain adequate oral intake to support maintenance of lean body mass. 2. Maintain K levels WNL. 3. Maintain adequate glycemic control per inpatient parameters. 4. Provide education if appropriate r/t hyperkalemia if persists prior to d/c. 5. Achieve/maintain regular bowel pattern w/o constipation or diarrhea. Social Work: Goals Discharge Plan return home with home care svs and family support Potential for Family Training pt's family are involved and supportive Anticipated Discharge Home Destination Discharge With home care svs and family support Care Plan: Care Plan ADL's - Improve/Maintain Start: 01/19/18 13:39 Freq: DAILY Status: Active Target: Protocol: Activity Type Activity Date Activity User E-Sign Co-Sign Detail Recorded Client Recorded Date Recorded By Document 01/19/18 13:39 [id number] 01/19/18 13:39 [id number] 01/19/18 13:39 PMRU Outcome: ADL's/ADL Transfers Orders/Interventions Occupational Therapy Evaluation & Treatment Device Yes Patient to receive OT 5x/wk for 60-120 Therex min/day Self Care Management Group Therapy Neuromuscular ReEducation UE/LE ADL's with Assist Yes ADL Transfers with Assist Yes Toileting: Transfers,Clothing Management Yes ,Hygeine w/Assist Light Kitchen/Laundry w/Assist Yes Progression Toward Outcome/Goals Progressing DVT Prophylaxis- Improve/Maintain Start: 01/21/18 00:34 Freq: QSHIFT Status: Active Target: Protocol: Activity Type Activity Date Activity User E-Sign Co-Sign Detail Recorded Client Recorded Date Recorded By Document 01/23/18 10:20 [id number] 01/23/18 10:21 [id number] 01/23/18 10:20 PMRU Outcome: DVT Prophylaxis Outcome/Goals Remains Free of DVT Complies with DVT Prophylaxis /Treatment TEDS Stockings on Every AM, Off at HS Progression Toward Outcome/Goals Progressing Outcome/Goals Met Comment scds on for the night Discharge Planning - Improve/Maintain Start: 01/21/18 00:34 Freq: DAILY Status: Active Target: Protocol: Activity Type Activity Date Activity User E-Sign Co-Sign Detail Recorded Client Recorded Date Recorded By Document 01/23/18 00:00 [id number] [id number] 01/23/18 00:27 [id number] 01/23/18 00:00 PMRU Outcome: Discharge Planning Update Patient Family No Outcome/Goals Demonstrates Understanding of Discharge Plan Progression Toward Outcome/Goals Progressing Education-Improve/Maintain Start: 01/21/18 00:34 Freq: QSHIFT Status: Active Target: Protocol: Activity Type Activity Date Activity User E-Sign Co-Sign Detail Recorded Client Recorded Date Recorded By Document 01/23/18 10:20 [id number] [email or web address] 01/23/18 10:21 [id number] 01/23/18 10:20 PMRU Outcome: Education Outcome/Goals Encourage Questions Progression Toward Outcome/Goals Progressing /GI-Improve/Maintain Start: 01/21/18 00:34 Freq: QSHIFT Status: Active Target: Protocol: Activity Type Activity Date Activity User E-Sign Co-Sign Detail Recorded Client Recorded Date Recorded By Document 01/23/18 10:20 [id number] 01/23/18 10:21 [id number] 01/23/18 10:20 PMRU Outcome: Genitourinary/ Gastrointestinal Genitourinary- Outcome/Goals Remain Free of Hospital- Acquired UTI Gastrointestinal-Outcome/Goals Maintain/ Achieve Bowel Regularity in Accordance with Pt's Baseline Prevent Constipation Laxatives as Ordered Progression Toward Outcome/Goals - Progressing Progression Toward Outcome/Goals - GI Not Progressing Outcome/Goals Met Comment jarrell in place Metabolic Status- Improve/Maintain Start: 01/21/18 00:34 Freq: QSHIFT Status: Active Target: Protocol: Activity Type Activity Date Activity User E-Sign Co-Sign Detail Recorded Client Recorded Date Recorded By Document 01/23/18 10:20 [id number] 01/23/18 10:21 [id number] 01/23/18 10:20 PMRU Outcome: Metabolic Status Have Fingersticks Been Ordered Yes Fingerstick Order Frequency AC & HS Outcome/Goals Demonstrate Knowledge of Prevention/ Treatment of Metabolic Imbalances Progression Toward Outcome/Goals Progressing Mobility- Improve/Maintain Start: 01/21/18 00:34 Freq: DAILY Status: Active Target: Protocol: Activity Type Activity Date Activity User E-Sign Co-Sign Detail Recorded Client Recorded Date Recorded By Document 01/22/18 10:45 [id number] 01/22/18 10:46 [id number] 01/22/18 10:45 PMRU Outcome: Mobility Physical Therapy Evaluation and Yes Treatment Activity OOB with Assistance Yes WBAT Yes Device Yes: SPC Assistance Yes: CGA with gait belt Patient to be seen 5x/wk for 60-120 min/ Therex day for: Mobility Training Gait Training Balance Outcome/Goals Maintain/ Achieve Baseline Mobility Status Improve Mobility Status Demonstrates Proper Use of Assistive Devices Free from Complications of Immobility Bed Mobility Yes: Ind Transfers Yes: Mod I Gait x ft Yes: Mod I x150ft with cane Up/Down Stairs Yes: Sup x5 stairs with 1 rail With HEP Yes: Ind Neurological- Improve/Maintain Start: 01/21/18 00:34 Freq: QSHIFT Status: Active Target: Protocol: Activity Type Activity Date Activity User E-Sign Co-Sign Detail Recorded Client Recorded Date Recorded By Document 01/23/18 10:20 [id number] 01/23/18 10:21 [id number] 01/23/18 10:20 PMRU Outcome: Neurological Weakness/Aphasia Weakness Left Side Outcome/Goals Maintain/ Achieve Baseline Neurological Status Improve Neurological Status Maintain/ Improve Strength/ROM Progression Toward Outcome/Goals Progressing Outcome/Goals Met Comment Left arm flaccid Nutrition/Swallowing- Improve/Maintain Start: 01/21/18 00:34 Freq: QSHIFT Status: Active Target: Protocol: Activity Type Activity Date Activity User E-Sign Co-Sign Detail Recorded Client Recorded Date Recorded By Document 01/23/18 00:26 [id number] 01/23/18 00:26 [id number] 01/23/18 00:26 PMRU Outcome: Nutrition/Swallowing Outcome/Goals Demonstrates Adequate Hydration/ Prevents Dehydration Maintain/ Improve Nutritional Status Progression Toward Outcome/Goals Progressing Pain/Comfort- Improve/Maintain Start: 01/21/18 00:34 Freq: QSHIFT Status: Active Target: Protocol: Activity Type Activity Date Activity User E-Sign Co-Sign Detail Recorded Client Recorded Date Recorded By Document 01/23/18 10:20 [id number] 01/23/18 10:21 [id number] 01/23/18 10:20 PMRU Outcome: Pain/Comfort Outcome/Goals Demonstrates Knowledge and Use of Available Comfort Measures Achieves Acceptable Comfort/Pain Level as Determined by Patient/Condit Maintain Comfort Level Allowing Patient to Fully Participate in Rehab Progression Toward Outcome/Goals Progressing Outcome/Goals Met Comment no c/o pain this am Safety- Improve/Maintain Start: 01/21/18 00:34 Freq: QSHIFT Status: Active Target: Protocol: Activity Type Activity Date Activity User E-Sign Co-Sign Detail Recorded Client Recorded Date Recorded By Document 01/23/18 10:20 [id number] 01/23/18 10:21 [id number] 01/23/18 10:20 PMRU Outcome: Safety Outcome/Goals Remain Free of Injury or Harm Prevent Falls/ Injury Progression Toward Outcome/Goals Progressing Skin- Improve/Maintain Start: 01/21/18 00:34 Freq: QSHIFT Status: Active Target: Protocol: Activity Type Activity Date Activity User E-Sign Co-Sign Detail Recorded Client Recorded Date Recorded By Document 01/23/18 10:20 [id number] 01/23/18 10:21 [id number] 01/23/18 10:20 PMRU Outcome: Skin Skin Risk Level Medium Skin Orders Turn/Position q2hr While in Bed Outcome/Goals Maintain/ Improve Skin Intergrity Progression Toward Outcome/Goals Progressing Medicine Note: Length of Stay: 3 days Anticipated Discharge Destination: Home Tentative Discharge Date: 01/26/18 Discharged to: home
--- NOTE | 2018-01-23 13:39 | PN ---
Subjective Date of Service: 01/23/18 Interval History: Mr. Montilla is resting comfortable in a chair. He has not had any seizures since last Friday January 19, 2018. He is tolerating the combination of phenytoin and levetiracetam. He denied any dizziness or ataxia. Fosphenytoin was infused yesterday without any complications. He is still plegic in the left upper extremity and slightly weak in the left lower extremity. This is a constant problem that has not changed. ROS: Denied any headaches, visual disturbance, or new weakness or paresthesias. Objective Active Medications: Acetaminophen (Tylenol Tab*) 650 mg PO Q4H PRN PRN Reason: FEVER > 101 Last Admin: 01/23/18 05:25 Dose: 650 mg Ascorbic Acid (Vitamin C Tab*) 500 mg PO DAILY [facility] Last Admin: 01/23/18 08:15 Dose: 500 mg Atorvastatin Calcium (Lipitor*) 40 mg PO 2100 [facility] Last Admin: 01/22/18 20:00 Dose: 40 mg Chlorthalidone (Hygroton Tab*) 25 mg PO DAILY [facility] Last Admin: 01/23/18 08:14 Dose: 25 mg Dexamethasone (Decadron Tab*) 2 mg PO TID [facility] Last Admin: 01/23/18 08:14 Dose: 2 mg Dextrose (D50w Syringe 50 Ml*) 12.5 gm IV PUSH .FOR FS < 60 - SS PRN PRN Reason: FS < 60 Diltiazem HCl (Cardizem Cd Cap*) 240 mg PO BEDTIME [facility] Last Admin: 01/22/18 20:00 Dose: 240 mg Docusate Sodium (Colace Cap*) 100 mg PO BID [facility] Last Admin: 01/23/18 08:14 Dose: 100 mg Ferrous Sulfate (Ferrous Sulfate Tab*) 325 mg PO DAILY [facility] Last Admin: 01/23/18 08:14 Dose: 325 mg Glipizide (Glucotrol Tab*) 5 mg PO 0800,1700 [facility] Last Admin: 01/23/18 08:15 Dose: 5 mg Insulin Human Lispro (Humalog*) 0 units SUBCUT [facility]; Protocol Last Admin: 01/23/18 12:27 Dose: 5 units Levetiracetam (Keppra Tab*) 1,000 mg PO BID [facility] Last Admin: 01/23/18 08:13 Dose: 1,000 mg Lorazepam (Ativan Inj*) 0.5 mg IV PUSH Q4H PRN PRN Reason: seizure Melatonin (Melatonin) 3 mg PO BEDTIME PRN; Protocol PRN Reason: SLEEP Last Admin: 01/22/18 20:02 Dose: 3 mg Nystatin (Nystatin Top Powder*) 1 applic TOPICAL BID [facility] Omeprazole (Prilosec Cap*) 20 mg PO BEDTIME [facility] Last Admin: 01/22/18 20:02 Dose: 20 mg Oxycodone HCl (Roxycodone Tab*) 5 mg PO Q6H PRN PRN Reason: HEADACHE/DISCOMFORT Last Admin: 01/22/18 20:02 Dose: 5 mg Phenytoin Sodium (Dilantin Cap(*)) 100 mg PO DAILY [facility] Last Admin: 01/23/18 08:13 Dose: 100 mg Phenytoin Sodium (Dilantin Cap(*)) 200 mg PO BEDTIME [facility] Last Admin: 01/22/18 20:01 Dose: 200 mg Senna (Senokot Tab*) 2 tab PO BEDTIME PRN PRN Reason: CONSTIPATION Last Admin: 01/22/18 20:06 Dose: 2 tab Trazodone HCl (Desyrel Tab*) 50 mg PO BEDTIME [facility] Last Admin: 01/22/18 20:02 Dose: 50 mg Warfarin Sodium (Coumadin Tab(*)) 5 mg PO DAILY@1700 [facility]; Protocol Last Admin: 01/22/18 17:18 Dose: 5 mg Vital Signs 01/22/18 01/22/18 01/22/18 15:35 16:40 17:40 Temperature 98.1 F Pulse Rate 88 69 Respiratory 18 18 Rate Blood Pressure 144/77 136/68 (mmHg) O2 Sat by Pulse 96 96 Oximetry 01/22/18 01/22/18 01/22/18 18:05 20:02 22:19 Temperature Pulse Rate 71 Respiratory 16 16 Rate Blood Pressure 149/68 (mmHg) O2 Sat by Pulse Oximetry 01/23/18 01/23/18 01/23/18 00:36 05:25 05:27 Temperature 97.8 F Pulse Rate 67 Respiratory 18 18 18 Rate Blood Pressure 139/70 (mmHg) O2 Sat by Pulse 100 Oximetry Oxygen Devices in Use Now: None Neurology Exam: General: Energetic appearing man in no acute distress. HEENT: juanita in place with no evidence of swelling or erythema. Neck: Supple. Chest: Clear to auscultation bilaterally Extremities: No clubbing, cyanosis, or edema Neurological Findings: Awake, Alert, Oriented x3 Speech: fluent without dysarthric, repetition intact Cranial Nerve: PEERL, EOM intact, face symmetric bilaterally, facial sensation intact. Motor: Left arm plegia, left leg 4/5 strength. Normal strength in the right upper and lower extremities. Left upper extremity-flaccid tone. Sensation: intact to LT/PP bilaterally upper and lower extremities Deep Tendon Reflex: 1+ on the right and 0 on the left upper extremities. Cerebellum: Finger to nose intact on the right. Gait: able to stand unassisted. Wide based. No ataxia. Slow to ambulate and required minimal assist to take a few steps. Result Diagrams: 01/20/18 05:36 01/20/18 05:36 Additional Lab and Data: Levetiracetam: 44.1 phenytoin: 7.1 (before loading with fosphenytoin on 01/22/2018) Pending total and free phenytoin level. Microbiology and Other Data: Microbiology 01/19/18 05:55 Urine Culture - Final Urine Mar Albicans Assessment/Plan Mr. 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 1. Partial motor seizures (localization related epilepsy)- seems to be controlled with levetiracetam 1,000 mg twice daily and phenytoin 100/200 mg daily. He has been seizure free since 01/19/2018. Pending total and free phenytoin levels. 2. Cerebral mass s/p resection- on Decadron 2 mg three times daily. Discuss weaning off with primary team especially if he continues to have episodes of hyperglycemia. Continue PT/OT. I will continue to follow. Discussed case with Dr. Charlie Peguero. 01/22/18 17:01
[2018-01-23] MEDS ORDERED: Fluconazole 100 MG TAB* TAB PO ONE (16:02)
[2018-01-23] MEDS ORDERED: Warfarin TAB(*) 3 MG PO SCH (17:00)
--- NOTE | 2018-01-23 19:44 | PN ---
Progress Note Date of Service: 01/23/18 Note: MARKIE LANDRY was visited. Therapy notes read and reviewed. He was discussed in interdisciplinary team rounds. He has not had any seizures since Monday night. Left arm remains plegic. In good spirits. INR rising. Will lower coumadin to 3 mg. Will order diflucan for UTI. Appreciate neurology and oncology follow up. Current Medications: Active Medications Generic Name Dose Route Start Last Admin Trade Name Freq PRN Reason Stop Dose Admin Acetaminophen 650 mg 01/19/18 11:25 01/23/18 05:25 Tylenol Tab* PO 650 mg Q4H PRN Administration FEVER > 101 Ascorbic Acid 500 mg 01/20/18 09:00 01/23/18 08:15 Vitamin C Tab* PO 500 mg DAILY [facility] Administration Atorvastatin Calcium 40 mg 01/19/18 21:00 01/22/18 20:00 Lipitor* PO 40 mg 2100 [facility] Administration Chlorthalidone 25 mg 01/20/18 09:00 01/23/18 08:14 Hygroton Tab* PO 25 mg DAILY [facility] Administration Dexamethasone 2 mg 01/19/18 14:00 01/23/18 14:02 Decadron Tab* PO 2 mg TID [facility] Administration Dextrose 12.5 gm 01/19/18 11:25 D50w Syringe 50 Ml* IV PUSH .FOR FS < 60 - SS PRN FS < 60 Diltiazem HCl 240 mg 01/19/18 21:00 01/22/18 20:00 Cardizem Cd Cap* PO 240 mg BEDTIME [facility] Administration Docusate Sodium 100 mg 01/19/18 21:00 01/23/18 08:14 Colace Cap* PO 100 mg BID [facility] Administration Ferrous Sulfate 325 mg 01/20/18 09:00 01/23/18 08:14 Ferrous Sulfate Tab* PO 325 mg DAILY [facility] Administration Fluconazole 100 mg 01/24/18 09:00 Diflucan 100 Mg Tab* PO 01/25/18 23:59 DAILY [facility] Glipizide 5 mg 01/21/18 17:17 01/23/18 16:50 Glucotrol Tab* PO 5 mg 0800,1700 [facility] Administration Insulin Human Lispro 0 units 01/19/18 11:30 01/23/18 17:37 Humalog* SUBCUT 2 units ACHS [facility] Administration Protocol Levetiracetam 1,000 mg 01/19/18 21:00 01/23/18 08:13 Keppra Tab* PO 1,000 mg BID [facility] Administration Lorazepam 0.5 mg 01/20/18 20:53 Ativan Inj* IV PUSH Q4H PRN seizure Melatonin 3 mg 01/19/18 11:25 01/22/18 20:02 Melatonin PO 3 mg BEDTIME PRN Administration SLEEP Protocol Nystatin 1 applic 01/23/18 21:00 Nystatin Top Powder* TOPICAL BID [facility] Omeprazole 20 mg 01/19/18 21:00 01/22/18 20:02 Prilosec Cap* PO 20 mg BEDTIME [facility] Administration Oxycodone HCl 5 mg 01/19/18 11:25 01/22/18 20:02 Roxycodone Tab* PO 5 mg Q6H PRN Administration HEADACHE/DISCOMFORT Phenytoin Sodium 100 mg 01/20/18 09:00 01/23/18 08:13 Dilantin Cap(*) PO 100 mg DAILY [facility] Administration Phenytoin Sodium 200 mg 01/19/18 21:00 01/22/18 20:01 Dilantin Cap(*) PO 200 mg BEDTIME [facility] Administration Senna 2 tab 01/22/18 19:54 01/22/18 20:06 Senokot Tab* PO 2 tab BEDTIME PRN Administration CONSTIPATION Trazodone HCl 50 mg 01/19/18 21:00 01/22/18 20:02 Desyrel Tab* PO 50 mg BEDTIME [facility] Administration Warfarin Sodium 3 mg 01/23/18 17:00 01/23/18 16:49 Coumadin Tab(*) PO 3 mg DAILY@1700 [facility] Administration Protocol Vital Signs: Vital Signs Temp Pulse Resp BP Pulse Ox 97.7 F 96 20 145/77 100 01/23/18 15:56 01/23/18 15:56 01/23/18 15:56 01/23/18 15:56 01/23/18 17:40 Lab Results: Laboratory Results - last 24 hr 01/22/18 01/23/18 01/23/18 20:00 05:17 07:43 INR (Anticoag Therapy) 3.18 H POC Glucose (mg/dL) 232 H 107 H 01/23/18 01/23/18 11:55 16:31 INR (Anticoag Therapy) POC Glucose (mg/dL) 390 H 202 H Exam: GENERAL: No acute distress. Alert and appropriate. LUNGS: clear to auscultation bilaterally. HEART: regular rate and rhythm ABDOMEN: + bowel sounds, soft, non-tender, non-distended EXTREMITIES: no edema. SKIN: juanita on scalp c/d/i. Lesion on left posterior ear. NEUROLOGIC: No spontaneous movement left arm. 4/5 left knee extension and ankle DF. RUE and RLE motor 5/5. Sensation intact. Assessment/Plan: 1. S/P Craniotomy, resection of mass with left hemiplegia: f/u with Dr. Infante. Still has juanita in. PT/OT 2. Seizures: Dilantin level low, but no seizures in last 48hrs. IV Fosphenytoin ordered. Roger. Appreciate Neurology follow-up. On decadron 2mg tid. 3. Insulin dependent diabetes mellitus: . 4. DVT prophylaxis: INR therapeutic on coumadin. INR Rising. Will lower coumadin , check INR in am 5. Paroxysmal Atrial Fibrillation: Coumadin/Cardizem 6. Mar UTI: will treat with Diflucan for 3 days. 7. Chronic anemia: continue iron. Follow labs. 8. Metastatic prostate cancer: Dr. Daniel to see him on unit. Dr. Lancaster will also see. 9. Left ear lesion and right axilla mass: Dr. Brandon follow up 10. Advanced directives: DNR. is HCP. 11. Estimated LOS: estimate d/c on 01/26/18. 01/23/18 19:45
[2018-01-23] MEDS: Melatonin 3 MG TAB PO PRN (19:56)
[2018-01-23] MEDS: Atorvastatin* 40 MG TAB PO SCH (19:57)
[2018-01-23] MEDS: traZODone TAB* 50 MG TAB PO SCH (19:57)
[2018-01-23] MEDS: Omeprazole CAP* 20 MG PO SCH (19:57)
[2018-01-23] MEDS: Diltiazem CD CAP* 240 MG PO SCH (19:57)
[2018-01-23] MEDS: oxyCODONE TAB* 5 MG TAB PO PRN (19:58)
[2018-01-23] MEDS: Nystatin TOP POWDER* 15 GM BTL TOPICAL SCH (22:09)
[2018-01-24] MEDS: oxyCODONE TAB* 5 MG TAB PO PRN ×2 (01:58→22:58)
[2018-01-24 06:08] LABS: ABS Basophils 0 10^3/ul (0-0.2); ABS Eosinophils 0 10^3/ul (0-0.6); ABS Lymphocytes 0.9 10^3/ul (1.0-4.8); ABS Monocytes 0.7 10^3/ul (0-0.8); ABS Neutrophils 6.8 10^3/ul (1.5-7.7); ABS Nucleated RBC 0 10^3/ul; Eosinophil % 0.3 % (0-6); Hematocrit 30 % (42-52); Hemoglobin 9.7 g/dl (14.0-18.0); Lymphocyte % 10.1 % (25-47); Mean Corpuscular HGB Conc 33 g/dl (31-36); Mean Corpuscular Hemoglobin 28 pg (27-31); Mean Corpuscular Volume 84 fL (80-94); Mean Platelet Volume 8.6 um3 (7.4-10.4); Nucleated Red Blood Cells % 0; Platelet Count 295 10^3/ul (150-450); Red Blood Count 3.53 10^6/ul (4.00-5.40); Red Cell Distribution Width 16 % (10.5-15); White Blood Count 8.4 10^3/ul (3.5-10.8)
[2018-01-24 06:15] LABS: INR 3.85 (0.77-1.02)
[2018-01-24] MEDS: Insulin LISPRO* 1 UNITS UNIT SUBCUT SCH ×4 (07:34→21:11)
[2018-01-24] MEDS: Nystatin TOP POWDER* 15 GM BTL TOPICAL SCH ×2 (08:15→21:11)
[2018-01-24] MEDS: Chlorthalidone TAB* 50 MG PO SCH (10:17)
[2018-01-24] MEDS: Fluconazole 100 MG TAB* TAB PO SCH (10:18)
[2018-01-24] MEDS: Ascorbic Acid TAB* 500 MG PO SCH (10:18)
[2018-01-24] MEDS: Phenytoin CAP(*) 100 MG CAP.ER PO SCH ×2 (10:18→20:24)
[2018-01-24] MEDS: glipiZIDE TAB* 5 MG PO SCH ×2 (10:18→16:54)
[2018-01-24] MEDS: Ferrous Sulfate TAB* 325 MG PO SCH (10:18)
[2018-01-24] MEDS: Dexamethasone TAB* 1 MG PO SCH ×3 (10:19→20:23)
[2018-01-24] MEDS: levETIRAcetam TAB* 500 MG PO SCH ×2 (10:19→20:22)
[2018-01-24] MEDS: Docusate CAP* 100 MG PO SCH ×2 (10:20→19:18)
--- NOTE | 2018-01-24 19:53 | PN ---
Progress Note Date of Service: 01/24/18 Note: MARKIE LANDRY was visited. Therapy notes read and reviewed. He has had no further seizures. Dilantin level low. Dose adjusted by neurology. On Diflucan day 2 for faby UTI. Current Medications: Active Medications Generic Name Dose Route Start Last Admin Trade Name Freq PRN Reason Stop Dose Admin Acetaminophen 650 mg 01/19/18 11:25 01/23/18 22:21 Tylenol Tab* PO 650 mg Q4H PRN Administration FEVER > 101 Ascorbic Acid 500 mg 01/20/18 09:00 01/24/18 10:18 Vitamin C Tab* PO 500 mg DAILY [facility] Administration Atorvastatin Calcium 40 mg 01/19/18 21:00 01/23/18 19:57 Lipitor* PO 40 mg 2100 [facility] Administration Chlorthalidone 25 mg 01/20/18 09:00 01/24/18 10:17 Hygroton Tab* PO 25 mg DAILY [facility] Administration Dexamethasone 2 mg 01/19/18 14:00 01/24/18 14:01 Decadron Tab* PO 2 mg TID [facility] Administration Dextrose 12.5 gm 01/19/18 11:25 D50w Syringe 50 Ml* IV PUSH .FOR FS < 60 - SS PRN FS < 60 Diltiazem HCl 240 mg 01/19/18 21:00 01/23/18 19:57 Cardizem Cd Cap* PO 240 mg BEDTIME [facility] Administration Docusate Sodium 100 mg 01/19/18 21:00 01/24/18 19:18 Colace Cap* PO Not Given BID [facility] Ferrous Sulfate 325 mg 01/20/18 09:00 01/24/18 10:18 Ferrous Sulfate Tab* PO 325 mg DAILY [facility] Administration Fluconazole 100 mg 01/24/18 09:00 01/24/18 10:18 Diflucan 100 Mg Tab* PO 01/25/18 23:59 100 mg DAILY [facility] Administration Glipizide 5 mg 01/21/18 17:17 01/24/18 16:54 Glucotrol Tab* PO 5 mg 0800,1700 [facility] Administration Insulin Human Lispro 0 units 01/19/18 11:30 01/24/18 16:55 Humalog* SUBCUT 2 units ACHS [facility] Administration Protocol Levetiracetam 1,000 mg 01/19/18 21:00 01/24/18 10:19 Keppra Tab* PO 1,000 mg BID [facility] Administration Lorazepam 0.5 mg 01/20/18 20:53 Ativan Inj* IV PUSH Q4H PRN seizure Melatonin 3 mg 01/19/18 11:25 01/23/18 19:56 Melatonin PO 3 mg BEDTIME PRN Administration SLEEP Protocol Nystatin 1 applic 01/23/18 21:00 01/24/18 08:15 Nystatin Top Powder* TOPICAL 1 applic BID [facility] Administration Omeprazole 20 mg 01/19/18 21:00 01/23/18 19:57 Prilosec Cap* PO 20 mg BEDTIME [facility] Administration Oxycodone HCl 5 mg 01/19/18 11:25 01/24/18 01:58 Roxycodone Tab* PO 5 mg Q6H PRN Administration HEADACHE/DISCOMFORT Phenytoin Sodium 100 mg 01/20/18 09:00 01/24/18 10:18 Dilantin Cap(*) PO 100 mg DAILY [facility] Administration Phenytoin Sodium 300 mg 01/24/18 21:00 Dilantin Cap(*) PO BEDTIME [facility] Senna 2 tab 01/22/18 19:54 01/22/18 20:06 Senokot Tab* PO 2 tab BEDTIME PRN Administration CONSTIPATION Trazodone HCl 50 mg 01/19/18 21:00 01/23/18 19:57 Desyrel Tab* PO 50 mg BEDTIME [facility] Administration Vital Signs: Vital Signs Temp Pulse Resp BP Pulse Ox 97.6 F 74 16 136/74 98 01/24/18 16:20 01/24/18 16:20 01/24/18 16:20 01/24/18 16:20 01/24/18 16:20 Lab Results: Laboratory Results - last 24 hr 01/23/18 01/24/18 01/24/18 19:55 05:40 05:40 WBC 8.4 RBC 3.53 L Hgb 9.7 L Hct 30 L MCV 84 MCH 28 MCHC 33 RDW 16 H Plt Count 295 MPV 8.6 Neut % (Auto) 81.0 Lymph % (Auto) 10.1 L [place] % (Auto) 8.5 H Eos % (Auto) 0.3 Baso % (Auto) 0.1 Absolute Neuts (auto) 6.8 Absolute Lymphs (auto) 0.9 L Absolute Monos (auto) 0.7 Absolute Eos (auto) 0 Absolute Basos (auto) 0 Absolute Nucleated RBC 0 Nucleated RBC % 0 INR (Anticoag Therapy) Sodium 134 L Potassium 5.5 H Chloride 105 Carbon Dioxide 18 L Anion Gap 11 BUN 82 H Creatinine 2.84 H Est GFR ( Amer) 26.6 Est GFR (Non-Af Amer) 22.0 BUN/Creatinine Ratio 28.9 H Glucose 126 H POC Glucose (mg/dL) 226 H Calcium 9.2 Total Bilirubin 0.20 AST 13 ALT 11 Alkaline Phosphatase 97 Total Protein 7.5 Albumin 3.9 Globulin 3.6 Albumin/Globulin Ratio 1.1 Phenytoin 7.6 L 01/24/18 01/24/18 01/24/18 05:40 07:25 11:24 WBC RBC Hgb Hct MCV MCH MCHC RDW Plt Count MPV Neut % (Auto) Lymph % (Auto) [place] % (Auto) Eos % (Auto) Baso % (Auto) Absolute Neuts (auto) Absolute Lymphs (auto) Absolute Monos (auto) Absolute Eos (auto) Absolute Basos (auto) Absolute Nucleated RBC Nucleated RBC % INR (Anticoag Therapy) 3.85 H Sodium Potassium Chloride Carbon Dioxide Anion Gap BUN Creatinine Est GFR ( Amer) Est GFR (Non-Af Amer) BUN/Creatinine Ratio Glucose POC Glucose (mg/dL) 121 H 386 H Calcium Total Bilirubin AST ALT Alkaline Phosphatase Total Protein Albumin Globulin Albumin/Globulin Ratio Phenytoin 01/24/18 01/24/18 12:22 16:47 WBC RBC Hgb Hct MCV MCH MCHC RDW Plt Count MPV Neut % (Auto) Lymph % (Auto) [place] % (Auto) Eos % (Auto) Baso % (Auto) Absolute Neuts (auto) Absolute Lymphs (auto) Absolute Monos (auto) Absolute Eos (auto) Absolute Basos (auto) Absolute Nucleated RBC Nucleated RBC % INR (Anticoag Therapy) Sodium Potassium Chloride Carbon Dioxide Anion Gap BUN Creatinine Est GFR ( Amer) Est GFR (Non-Af Amer) BUN/Creatinine Ratio Glucose POC Glucose (mg/dL) 248 H 226 H Calcium Total Bilirubin AST ALT Alkaline Phosphatase Total Protein Albumin Globulin Albumin/Globulin Ratio Phenytoin Exam: GENERAL: No acute distress. Alert and appropriate. LUNGS: clear to auscultation bilaterally. HEART: regular rate and rhythm ABDOMEN: + bowel sounds, soft, non-tender, non-distended EXTREMITIES: no edema. SKIN: juanita on scalp c/d/i. Lesion on left posterior ear. NEUROLOGIC: No spontaneous movement left arm. 4/5 left knee extension and ankle DF. RUE and RLE motor 5/5. Sensation intact. Assessment/Plan: 1. S/P Craniotomy, resection of mass with left hemiplegia: f/u with Dr. Infante. Still has juanita in. PT/OT 2. Seizures: Dilantin level low, but no seizures in last 96hrs. phenytoin dose adjusted. Roger. Appreciate Neurology follow-up. On decadron 2mg tid. 3. Insulin dependent diabetes mellitus: Glucotrol/SSI 4. DVT prophylaxis: INR supratherapeutic on coumadin. INR Still Rising. Will hold coumadin tonight, check INR in am 5. Paroxysmal Atrial Fibrillation: Coumadin/Cardizem 6. Faby UTI: will treat with Diflucan for 3 days, day #2/3. 7. Chronic anemia: continue iron. Follow labs. 8. Metastatic prostate cancer: Dr. Daniel note appreciated. 9. Left ear lesion and right axilla mass: Dr. Daniel for follow up 10. Advanced directives: DNR. is HCP. 11. Estimated LOS: estimate d/c on 01/26/18. 01/24/18 19:53 01/24/18 19:54
[2018-01-24] MEDS: Acetaminophen TAB* 325 MG PO PRN (20:21)
[2018-01-24] MEDS: Atorvastatin* 40 MG TAB PO SCH (20:22)
[2018-01-24] MEDS: Omeprazole CAP* 20 MG PO SCH (20:22)
[2018-01-24] MEDS: Diltiazem CD CAP* 240 MG PO SCH (20:23)
[2018-01-24] MEDS: traZODone TAB* 50 MG TAB PO SCH (20:24)
[2018-01-24] MEDS: Melatonin 3 MG TAB PO PRN (22:58)
[2018-01-25] MEDS: oxyCODONE TAB* 5 MG TAB PO PRN (04:29)
[2018-01-25 05:27] LABS: INR 4.18 (0.77-1.02)
[2018-01-25 05:31] LABS: EGFR Non-African American 22.9 (>60)
[2018-01-25] MEDS: Nystatin TOP POWDER* 15 GM BTL TOPICAL SCH ×2 (08:05→21:42)
[2018-01-25] MEDS: levETIRAcetam TAB* 500 MG PO SCH ×2 (08:35→20:16)
[2018-01-25] MEDS: Acetaminophen TAB* 325 MG PO PRN ×2 (08:35→20:23)
[2018-01-25] MEDS: Ascorbic Acid TAB* 500 MG PO SCH (08:36)
[2018-01-25] MEDS: glipiZIDE TAB* 5 MG PO SCH ×2 (08:36→17:27)
[2018-01-25] MEDS: Chlorthalidone TAB* 50 MG PO SCH (08:36)
[2018-01-25] MEDS: Docusate CAP* 100 MG PO SCH ×2 (08:36→20:21)
[2018-01-25] MEDS: Ferrous Sulfate TAB* 325 MG PO SCH (08:36)
[2018-01-25] MEDS: Insulin LISPRO* 1 UNITS UNIT SUBCUT SCH ×4 (08:37→21:40)
[2018-01-25] MEDS: Fluconazole 100 MG TAB* TAB PO SCH (08:38)
[2018-01-25] MEDS: Dexamethasone TAB* 1 MG PO SCH ×3 (08:38→20:16)
[2018-01-25] MEDS: Phenytoin CAP(*) 100 MG CAP.ER PO SCH ×2 (08:39→20:51)
--- NOTE | 2018-01-25 11:38 | PN ---
CC: Dr. Peguero NEUROLOGY PROGRESS REPORT: DATE OF SERVICE: 01/24/18 PRIMARY PROVIDER: Dr. Charlie Peguero. CHIEF COMPLAINT: No complaints today. He wants to go home hopefully by Monday. SUBJECTIVE: The patient is resting comfortably. He has not had any seizures since 01/19/18. He is eager to go home on Monday. He still quite plegic on the left upper extremity. Denied any headaches, visual disturbance or new weakness/paresthesias. MEDICATIONS: 1. Acetaminophen. 2. Ascorbic acid. 3. Atorvastatin. 4. Dexamethasone. 5. Dextrose. 6. Diltiazem. 7. Docusate. 8. Ferrous sulfate. 9. Glipizide. 10. Levetiracetam 1000 mg p.o. twice daily. 11. Lorazepam as needed for seizures. 12. Melatonin. 13. Oxycodone. 14. Phenytoin 100 mg in the morning and 200 mg at night. 15. Trazodone 50 mg at bedtime. 16. Warfarin 5 mg daily. PHYSICAL EXAMINATION: Vitals: Temperature 97.6, pulse is 74, respiratory rate of 16, oxygen saturation 98, blood pressure is 136/74. General: Energetic- appearing man, in no acute distress. [place] in cranial region which are in place and there is no swelling or erythema around the area. No clubbing, cyanosis, or edema. On neurological, the patient is awake, alert, and oriented to person, place, time, and situation. He recognized the examiner. He has no dysarthria. Pupils were equal, round and reactive to light. Extraocular muscles were intact. He has left arm plegia that has not changed in strength in the left lower extremity, 4/5 strength. Normal strength in right the upper and lower extremities. The patient is able to stand unassisted. LABORATORY DATA: Total phenytoin level 7.6. Glucose level is 226. Albumin is 3.9. ASSESSMENT AND RECOMMENDATION: Mr. Landon Montilla is a 72-year-old man with metastatic disease in the right cerebral hemisphere status post craniotomy and resection of mass with left upper extremity hemiplegia. 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 1. 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 The patient is on levetiracetam 1000 mg twice daily and phenytoin 100/200 mg daily. I have increased the dose to 100 /300 mg daily since the free level is on the lower range. I wonder if there is an interaction between Coumadin and the phenytoin; however, the interaction would usually decrease the Coumadin level rather than decreasing the phenytoin level. We are still pending the total and free phenytoin levels. I will repeat another total level tomorrow. The patient hopefully should be ready for discharge by Monday. We will continue to follow. [id number]/[facility] [place] #: [id number] [facility]
--- NOTE | 2018-01-25 17:58 | PN ---
Progress Note Date of Service: 01/25/18 Note: MARKIE LANDRY was visited. Therapy notes read and reviewed. Case discussed with Dr. Valdez from neurology. His Dilantin level is rising but not therapeutic. On Dilantin and Keppra, no seizures since Monday. Will go home on Dilantin 400 mg/ day (300 mg at HS and 100 mg in am). His came in for training. They are ready to go home in am. Current Medications: Active Medications Generic Name Dose Route Start Last Admin Trade Name Freq PRN Reason Stop Dose Admin Acetaminophen 650 mg 01/19/18 11:25 01/25/18 08:35 Tylenol Tab* PO 650 mg Q4H PRN Administration FEVER > 101 Ascorbic Acid 500 mg 01/20/18 09:00 01/25/18 08:36 Vitamin C Tab* PO 500 mg DAILY LAURA Administration Atorvastatin Calcium 40 mg 01/19/18 21:00 01/24/18 20:22 Lipitor* PO 40 mg 2100 LAURA Administration Chlorthalidone 25 mg 01/20/18 09:00 01/25/18 08:36 Hygroton Tab* PO 25 mg DAILY LAURA Administration Dexamethasone 2 mg 01/19/18 14:00 01/25/18 14:19 Decadron Tab* PO 2 mg TID LAURA Administration Dextrose 12.5 gm 01/19/18 11:25 D50w Syringe 50 Ml* IV PUSH .FOR FS < 60 - SS PRN FS < 60 Diltiazem HCl 240 mg 01/19/18 21:00 01/24/18 20:23 Cardizem Cd Cap* PO 240 mg BEDTIME LAURA Administration Docusate Sodium 100 mg 01/19/18 21:00 01/25/18 08:36 Colace Cap* PO 100 mg BID LAURA Administration Ferrous Sulfate 325 mg 01/20/18 09:00 01/25/18 08:36 Ferrous Sulfate Tab* PO 325 mg DAILY LAURA Administration Fluconazole 100 mg 01/24/18 09:00 01/25/18 08:38 Diflucan 100 Mg Tab* PO 01/25/18 23:59 100 mg DAILY LAURA Administration Glipizide 5 mg 01/21/18 17:17 01/25/18 17:27 Glucotrol Tab* PO 5 mg 0800,1700 LAURA Administration Insulin Human Lispro 0 units 01/19/18 11:30 01/25/18 17:27 Humalog* SUBCUT 4 units ACHS LAURA Administration Protocol Levetiracetam 1,000 mg 01/19/18 21:00 01/25/18 08:35 Keppra Tab* PO 1,000 mg BID LAURA Administration Lorazepam 0.5 mg 01/20/18 20:53 Ativan Inj* IV PUSH Q4H PRN seizure Melatonin 3 mg 01/19/18 11:25 01/24/18 22:58 Melatonin PO 3 mg BEDTIME PRN Administration SLEEP Protocol Nystatin 1 applic 01/23/18 21:00 01/25/18 08:05 Nystatin Top Powder* TOPICAL 1 applic BID LAURA Administration Omeprazole 20 mg 01/19/18 21:00 01/24/18 20:22 Prilosec Cap* PO 20 mg BEDTIME LAURA Administration Oxycodone HCl 5 mg 01/19/18 11:25 01/25/18 04:29 Roxycodone Tab* PO 5 mg Q6H PRN Administration HEADACHE/DISCOMFORT Phenytoin Sodium 100 mg 01/20/18 09:00 01/25/18 08:39 Dilantin Cap(*) PO 100 mg DAILY LAURA Administration Phenytoin Sodium 300 mg 01/24/18 21:00 01/24/18 20:24 Dilantin Cap(*) PO 300 mg BEDTIME LAURA Administration Senna 2 tab 01/22/18 19:54 01/22/18 20:06 Senokot Tab* PO 2 tab BEDTIME PRN Administration CONSTIPATION Trazodone HCl 50 mg 01/19/18 21:00 01/24/18 20:24 Desyrel Tab* PO 50 mg BEDTIME LAURA Administration Vital Signs: Vital Signs Temp Pulse Resp BP Pulse Ox 98.1 F 74 18 115/67 98 01/25/18 15:39 01/25/18 15:39 01/25/18 15:39 01/25/18 15:39 01/25/18 15:39 Lab Results: Laboratory Results - last 24 hr 01/23/18 01/24/18 01/25/18 05:17 20:20 05:01 INR (Anticoag Therapy) 4.18 H Sodium Potassium Chloride Carbon Dioxide Anion Gap BUN Creatinine Est GFR ( Amer) Est GFR (Non-Af Amer) BUN/Creatinine Ratio Glucose POC Glucose (mg/dL) 323 H Calcium Phenytoin Free Phenytoin <0.8 L Total Phenytoin 9.1 L 01/25/18 01/25/18 01/25/18 05:01 07:23 11:25 INR (Anticoag Therapy) Sodium 131 L Potassium 4.9 Chloride 103 Carbon Dioxide 17 L Anion Gap 11 BUN 87 H Creatinine 2.74 H Est GFR ( Amer) 27.7 Est GFR (Non-Af Amer) 22.9 BUN/Creatinine Ratio 31.8 H Glucose 124 H POC Glucose (mg/dL) 131 H 333 H Calcium 8.8 Phenytoin 8.4 L Free Phenytoin Total Phenytoin 01/25/18 16:49 INR (Anticoag Therapy) Sodium Potassium Chloride Carbon Dioxide Anion Gap BUN Creatinine Est GFR ( Amer) Est GFR (Non-Af Amer) BUN/Creatinine Ratio Glucose POC Glucose (mg/dL) 337 H Calcium Phenytoin Free Phenytoin Total Phenytoin Exam: GENERAL: No acute distress. Alert and appropriate. LUNGS: clear to auscultation bilaterally. HEART: regular rate and rhythm ABDOMEN: + bowel sounds, soft, non-tender, non-distended EXTREMITIES: no edema. SKIN: juanita on scalp c/d/i. Lesion on left posterior ear. NEUROLOGIC: No spontaneous movement left arm. 4/5 left knee extension and ankle DF. RUE and RLE motor 5/5. Sensation intact. Assessment/Plan: 1. S/P Craniotomy, resection of mass with left hemiplegia: f/u with Dr. Infante. Still has juanita in. PT/OT 2. Seizures: Dilantin level low, but no seizures since last Monday. phenytoin/ Keppra. Appreciate Neurology follow-up. On decadron 2mg tid. 3. Insulin dependent diabetes mellitus: Glucotrol/SSI 4. DVT prophylaxis: INR supratherapeutic on coumadin. INR Still Rising. Will hold coumadin again tonight, check INR in am 5. Paroxysmal Atrial Fibrillation: Coumadin/Cardizem 6. Mar UTI: will treat with Diflucan for 3 days, day #3/3. 7. Chronic anemia: continue iron. Follow labs. 8. Metastatic prostate cancer: Dr. Daniel note appreciated. 9. Left ear lesion and right axilla mass: Dr. Daniel for follow up 10. Advanced directives: DNR. is HCP. 11. Estimated LOS: d/c on 01/26/18. 01/25/18 17:58
[2018-01-25] MEDS: Omeprazole CAP* 20 MG PO SCH (20:16)
[2018-01-25] MEDS: traZODone TAB* 50 MG TAB PO SCH (20:16)
[2018-01-25] MEDS: Diltiazem CD CAP* 240 MG PO SCH (20:16)
[2018-01-25] MEDS: Atorvastatin* 40 MG TAB PO SCH (20:16)
--- NOTE | 2018-01-26 03:01 | PN ---
NEUROLOGY PROGRESS REPORT: DATE OF SERVICE: 01/25/18 PRIMARY PROVIDER: Dr. Peguero. CHIEF COMPLAINT: No complaints today. Wants to go home, hopefully tomorrow, and he has history of focal motor seizures. SUBJECTIVE: The patient has not had any seizures. He denied any new weakness or paresthesias. Unfortunately, he continues to be plegic on the left arm, but his left lower extremity has improved significantly. MEDICATIONS: 1. Acetaminophen. 2. Ascorbic acid. 3. Atorvastatin. 4. Chlorthalidone. 5. Dexamethasone. 6. Diltiazem. 7. Docusate. 8. Ferrous sulfate. 9. Fluconazole, which was stopped today. 10. Glipizide. 11. Insulin. 12. Levetiracetam 1000 mg by mouth b.i.d. 13. Lorazepam 0.5 mg push for any seizures. 14. Melatonin. 15. Nystatin. 16. Omeprazole. 17. Oxycodone. 18. Phenytoin 100 mg in the morning and 300 mg at nighttime. 19. Senna. 20. Trazodone. PHYSICAL EXAMINATION: Vitals: Temperature of 98.1, pulse rate of 74, respiratory rate of 18, oxygen saturation of 98%, blood pressure of 115/67. General: Energetic-appearing man, in no acute distress. No signs of erythema or infections around the surgical site in the skull. [place] are in place. The patient is awake, alert, and oriented to person, place, time, and general circumstances. He recognized the examiner. He has no dysarthria. Pupils are equal, round and reactive to light. Extraocular muscles were intact. He has left arm plegia and no other significant weakness. His strength in the left lower extremity has improved. He is able to stand unassisted. LABORATORY DATA: Total phenytoin level is 8.4, free phenytoin level is less than 0.08. This was obtained before the increase in dose. ASSESSMENT AND RECOMMENDATIONS: Mr. Landon Montilla is a 72-year-old man with metastatic disease to the right cerebral hemisphere, status post craniotomy and resection of mass with left upper extremity hemiplegia. He also has tumor related epilepsy, but he has not had any seizures since 01/19/18. Partial motor seizures - controlled. I increased his phenytoin yesterday to 100 in the morning and 300 at night. We had a little bump in his total phenytoin level today to 8.6. I am not going to increase his phenytoin any more as the patient is stable currently on the current dose. He has not had a seizure for 1 week. I am concerned that there may have been some interaction between the Diflucan as well as the Coumadin with the phenytoin, but usually it would increase the level rather than decrease it. It will also usually decrease the INR level and currently the patient's INR is elevated despite holding the Coumadin dose yesterday. He will follow up with Dr. Miguel A Valentin in 3 weeks where a level will be rechecked again. I will sign off. I discussed this case with the primary providers and the bedside nurse. Please contact me for any questions or concerns. Otherwise, the patient will be leaving home tomorrow. [id number]/[facility] #: [id number] MTDD
[2018-01-26] MEDS: Acetaminophen TAB* 325 MG PO PRN (04:56)
[2018-01-26 05:02] VITALS: BP 148/60
[2018-01-26 06:08] LABS: INR 3.38 (0.77-1.02)
[2018-01-26] MEDS: Insulin LISPRO* 1 UNITS UNIT SUBCUT SCH (08:06)
[2018-01-26] MEDS: Ascorbic Acid TAB* 500 MG PO SCH (09:23)
[2018-01-26] MEDS: glipiZIDE TAB* 5 MG PO SCH (09:23)
[2018-01-26] MEDS: Docusate CAP* 100 MG PO SCH (09:23)
[2018-01-26] MEDS: Ferrous Sulfate TAB* 325 MG PO SCH (09:23)
[2018-01-26] MEDS: Dexamethasone TAB* 1 MG PO SCH (09:23)
[2018-01-26] MEDS: Chlorthalidone TAB* 50 MG PO SCH (09:23)
[2018-01-26] MEDS: Nystatin TOP POWDER* 15 GM BTL TOPICAL SCH (09:23)
[2018-01-26] MEDS: levETIRAcetam TAB* 500 MG PO SCH (09:23)
[2018-01-26] MEDS: Phenytoin CAP(*) 100 MG CAP.ER PO SCH (09:24)
--- NOTE | 2018-01-27 02:42 | RADMED ---
CC: Dr. Infante; Dr. Amando Stein; Dr. Cevallos; Dr. Daniel * RADIATION ONCOLOGY INPATIENT CONSULTATION NOTE: DATE OF CONSULT: 01/25/18 - ROOM #251 DIAGNOSES: Metastatic prostate cancer, AJCC stage IV. HISTORY OF PRESENT ILLNESS: Mr. Montilla is a 72-year-old gentleman with history of prostate cancer found on needle biopsy on 05/05/04. He underwent radical prostatectomy from 06/02/04, pathology identifying Martha 4+3=7 adenocarcinoma with negative margins and negative lymph nodes. Extraprostatic extension was noted but no seminal vesicle invasion. He also reports a history of subsequent external beam radiation therapy with subsequent progression of disease, and he has received androgen deprivation intermittently over the years. PSA was well- suppressed, for example 0.687 ng/mL on 09/21/16, but increased, up to 5.5 to 9 ng/mL on 01/09/18. He underwent hip replacement, and his orthopedic surgeon noted a mass on the right scalp and sent him for evaluation at the hospital, which included CT scan of the brain on 01/08/18, which identified a mass involving the right frontoparietal skull with extension into the brain and subcutaneous involvement appreciated. He had biopsy on 01/09/18 as well, which suggested metastatic prostate cancer. He elected for surgery, performed with resection of metastatic prostate adenocarcinoma, Rose[place] 4+5=9 involving the bone and dura. He is recovering reasonably well although he does have a dense paralysis of the left upper extremity. He has no headaches, and has been working physical therapy making significant improvement in ambulation and recovery already. He is referred for consideration of postoperative palliative radiation therapy. PAST MEDICAL HISTORY: Prostate cancer, as in history of present illness, history of right total hip replacement, diabetes, hypertension, hyperlipidemia, kidney disease, anemia, atrial fibrillation, reflux, back surgery, kidney stones. MEDICATIONS: As per the inpatient record include: 1. Tylenol. 2. Vitamin C. 3. Lipitor. 4. Chlorthalidone. 5. Dexamethasone. 6. Diltiazem. 7. Colace. 8. Iron. 9. Glucotrol. 10. Insulin. 11. Keppra. 12. Ativan. 13. Melatonin. 14. Nystatin. 15. Prilosec. 16. Dilantin. 17. Senna. 18. Trazodone. ALLERGIES: Codeine, hydrochlorothiazide, indapamide, lisinopril. FAMILY HISTORY: Noncontributory. SOCIAL HISTORY: He is accompanied by his who is quite supportive. He is a former smoker having quit in the distant past. REVIEW OF SYSTEMS: As in the history of present illness, otherwise a complete review of systems is as per the patient, negative for additional associated significant findings. PHYSICAL EXAM: Vital Signs: Temperature 98.9, pulse rate 64, respiratory rate 18, oxygen saturation 100%. Blood pressure 139/65. In general, he is awake, alert, oriented in no acute distress. HEENT: Surgical incision in the right scalp, juanita in place, well approximated. No drainage or sign of infection. Neck: Supple. Full range of motion. Mid line trachea. No mass palpable on the neck or thyroid. Lungs have symmetric air entry bilaterally. Cardiovascular: S1, S2 , regular. Abdomen: Soft, nontender. No mass. No organomegaly. Extremities: No cyanosis or edema. Neurologic: Cranial nerves II through XII are intact. Strength is globally decreased, but he provides good resistance in the right upper extremity and the bilateral lower extremities. He has a dense paresis from the left shoulder down. Lymphatics: There is no cervical or supraclavicular adenopathy appreciated. ASSESSMENT AND PLAN: Mr. Montilla is a 72-year-old gentleman with metastatic prostate cancer, now status post resection of an aggressive lesion in the right skull invading through the dura into the brain parenchyma. I did review his test results, pathologic and and radiographic findings, and his case was also reviewed through multidisciplinary tumor board. With brain invasion, although this lesion likely started in the bone, its aggressive nature, I would treat it many ways like brain metastasis, and I do think palliative postoperative radiation therapy would be reasonable to improve local control and help reduce the risk of symptomatic tumor recurrence/progression in that region. With regard to radiation therapy for his situation, I explained the logistics and rationale for treatment, the risks, benefits, and alternatives as well as acute and parts counterman frequent and uncommon toxicities. I did answer the patient and his 's question to the best of my ability. He is inclined to proceed with palliative radiation therapy as discussed. Typically I would wait approximately 4 weeks for wound healing assuming that he heels on an average time frame. I did provide him with a follow up appointment on 02/02/18 for followup and potentially for treatment planning, simulation for radiation therapy. In order to perform his simulation, I have to wait until after his juanita are removed, and I did let him know that the timing is flexible depending on his healing and recovery. He is soon to be discharged from acute inpatient rehab, and I did invite him to contact me sooner than his scheduled appointment with any questions or concerns. For his situation, I recommend 3000 centigray and 300 centigray per fraction to a localized field encompassing the postoperative bed with a margin. Thank you for giving me the opportunity to participate in the care of this very pleasant gentleman. [id number]/[facility] #: [id number] NIKKI
--- NOTE | 2018-01-27 05:05 | DS ---
CC: Dr. Amando Stein * DISCHARGE SUMMARY: DATE OF ADMISSION: 01/19/18. DATE OF DISCHARGE: 01/26/18. DISCHARGE DIAGNOSES: 1. Metastatic prostate cancer. 2. Status post craniotomy with resection of mass. 3. Left hemiplegia affecting arm much worse than leg. 4. Seizure disorder. 5. Diabetes mellitus. 6. Urinary tract infection. 7. Chronic anemia. 8. History of deep vein thrombosis. HISTORY OF ILLNESS AND HOSPITAL COURSE: For complete history of the events leading up to his rehab stay, please see the history and physical dictated by Dr. Lizett Mckeon, on 01/19/18. While on the rehab unit, the patient had 2 seizures on the evening of 01/19/18. Following the seizures, he had increased weakness in his left upper extremity and was basically plegic in his left upper extremity. He was loaded with Dilantin and his Dilantin level was slow to rise. He later was given a loading dose of IV fosphenytoin, but still his Dilantin level remains subtherapeutic. However, he had no further seizures after Dilantin was added to his Keppra. The patient otherwise was fairly stable. He remained on Decadron. His blood sugars were fairly well controlled, although the Decadron did seem to increase his blood sugars. His Coumadin was restarted. The Dilantin interfered with his Coumadin and his INR became supratherapeutic; however, Coumadin was again resumed just prior to discharge. The patient was otherwise medically stable. He was seen by Physical Therapy and Occupational Therapy and made good gains with both disciplines. With physical therapy at the time of admission, the patient required contact guard to do a transfer. He is able to ambulate about 100 feet with contact guard. He was with moderate amount of assistance for bed mobility. By the time of discharge, the patient was ambulating independently 600 feet. He was transferring independently. With occupational therapy at the time of admission , the patient required max assist for upper body dressing, total assist for lower body dressing, max assist for bathing, moderate amount of assistance for toileting, and minimal amount of assistance for toilet transfer. By the time of discharge, the patient was supervision for toilet transfers, independent in toileting, moderate amount of assistance for lower body dressing, moderate amount of assistance for upper body dressing. His came in for family training prior to discharge and she felt capable in taking him home. The patient was discharged to home on 01/26/18. DISCHARGE DIET: Consistent carbohydrate. DISCHARGE MEDICATIONS: 1. Keppra 1000 mg twice daily. 2. Decadron 2 mg 3 times daily. 3. Vitamin C 500 mg daily. 4. Lipitor 40 mg daily. 5. Hygroton 25 mg daily. 6. Cardizem CD 240 mg daily. 7. Glipizide 5 mg twice daily. 8. Dilantin 100 mg in the morning and 300 mg in the evening. 9. Omeprazole 20 mg at bedtime. 10. Oxycodone 5 mg every 6 hours as needed. DISCHARGE PLAN: Services after discharge through [facility]. He will have home nursing, home physical therapy, and a home health aide. FOLLOWUP: Follow up with Dr. Grant Lancaster on 02/02/18. He will also follow up with Dr. Amando Stein, his primary care doctor. [id number]/[facility] #: [id number] MTDNina
== END 2018-01-26 13:01 | disposition home health service (06) | DRG 949 ==
LOC: PMRU 10:30 → UNDOADMIN 10:30 → UNDODISIN 10:35 → PMRU 11:25
PROVIDERS: ADMIT Physical Medicine & Rehabilitation; ATTEND Physical Medicine & Rehabilitation
PROC: F07Z5ZZ Bed Mobility Treatment (ICD-10-PCS; principal; 2018-01-19)
PROC: F07Z9ZZ Gait Training/Functional Ambulation Treatment (ICD-10-PCS; 2018-01-19)
PROC: F07Z8ZZ Transfer Training Treatment (ICD-10-PCS; 2018-01-19)
PROC: F08Z0ZZ Bathing/Showering Techniques Treatment (ICD-10-PCS; 2018-01-19)
PROC: F08Z1ZZ Dressing Techniques Treatment (ICD-10-PCS; 2018-01-19)
PROC: F08Z3ZZ Feeding/Eating Treatment (ICD-10-PCS; 2018-01-19)
DX: Z48.89 Encounter for other specified surgical aftercare (principal); G81.94 Hemiplegia, unspecified affecting left nondominant side; C79.51 Secondary malignant neoplasm of bone; N18.4 Chronic kidney disease, stage 4 (severe); N39.0 Urinary tract infection, site not specified; C61 Malignant neoplasm of prostate; E11.22 Type 2 diabetes mellitus with diabetic chronic kidney disease; I12.9 Hypertensive chronic kidney disease with stage 1 through stage 4 chronic kidney disease, or unspecified chronic kidney disease; E78.5 Hyperlipidemia, unspecified; E53.8 Deficiency of other specified B group vitamins; D53.9 Nutritional anemia, unspecified; Z66 Do not resuscitate; I48.0 Paroxysmal atrial fibrillation; K21.9 Gastro-esophageal reflux disease without esophagitis; E11.51 Type 2 diabetes mellitus with diabetic peripheral angiopathy without gangrene; H93.8X2 Other specified disorders of left ear; Z96.641 Presence of right artificial hip joint; G40.909 Epilepsy, unspecified, not intractable, without status epilepticus; B96.89 Other specified bacterial agents as the cause of diseases classified elsewhere; N39.498 Other specified urinary incontinence; Z86.718 Personal history of other venous thrombosis and embolism; Z79.01 Long term (current) use of anticoagulants; Z79.4 Long term (current) use of insulin; Z79.891 Long term (current) use of opiate analgesic; Z79.899 Other long term (current) drug therapy; Z88.5 Allergy status to narcotic agent; Z88.8 Allergy status to other drugs, medicaments and biological substances; Z83.3 Family history of diabetes mellitus; Z87.891 Personal history of nicotine dependence
CPT/HCPCS: 36415; 70450; 80048; 80053; 80177; 80185; 80186; 81003; 81015; 82947; 85025; 85610; 87086; 87106; A9270-GY; J1165; J1644; J2060; Q2009

== ENCOUNTER → 2018-03-30 06:10 | Day surgery (SDC) | payer MEDICARE ==
--- NOTE | 2018-03-26 08:40 | HP ---
CC: Dr. Stein; Dr. Daniel; Dr. White; Dr. Cevallos ADMITTING HISTORY AND PHYSICAL: DATE OF ADMISSION: 03/30/18 ADMITTING DIAGNOSES: 1. Advanced prostate cancer. 2. Bilateral hydronephrosis. PLANNED PROCEDURE: Cystoscopy, bilateral retrogrades, bilateral ureteral stent change. SURGEON: Dr. Cevallos. HISTORY OF PRESENT ILLNESS: Landon Montilla is a 72-year-old gentleman with advanced prostate cancer and bilateral hydronephrosis (secondary to ureteral strictures likely related to radiation). He was initially diagnosed in 2003 and had undergone radical prostatectomy followed by radiation ther apy in 2004. He recently had metastatic prostate cancer diagnosed to the brain and had a craniotomy for that and has been on Lupron androgen deprivation therapy. His stents were last changed in [facility] of 2017 and he is now being brought in for bilateral stent change. PAST MEDICAL HISTORY: Significant for: 1. Prostate cancer as outlined above. 2. History of atrial fibrillation. 3. Diabetes mellitus. 4. History of DVT. MEDICATIONS: On admission: 1. Atorvastatin 40 mg a day. 2. Enzalutamide 160 mg a day. 3. Cartia XT 240 mg daily. 4. Chlorthalidone 25 mg a day. 5. Coumadin as directed. 6. Dilantin 100 mg twice a day. 7. Glipizide 10 mg twice a day. 8. Humulin as directed. 9. Keppra 1000 mg twice a day. 10. Omeprazole 20 mg a day. 11. Trazodone 150 mg q.h.s. ALLERGIES: No known drug allergies. PHYSICAL EXAMINATION GENERAL: Reveals a pleasant, elderly gentleman. VITAL SIGNS: Blood pressure is 120/70, pulse 86 per minute, regular, respirations 18 per minute. LUNGS: Clear bilaterally. CARDIOVASCULAR: S1, S2. No murmurs. ABDOMEN: Soft with mild bilateral flank tenderness. He also has a Burgess catheter in place. IMPRESSION: A 72-year-old gentleman with advanced prostate cancer, on androgen deprivation therapy, and bilateral hydronephrosis. PLAN: Cystoscopy, bilateral retrogrades, bilateral stent change. [id number]/[facility] #: [id number]
[~2018-03-30 06:10] MED LIST changes: +Acetaminophen TAB* 325 MG PO PRN; -DiMENhydriNATE IV* 50 MG/ML VIAL IV PUSH PRN; -Famotidine TAB* 20 MG PO ONE; -Gabapentin CAP(*) 300 MG PO ONE; +Iohexol 180 (CONTRAST) 10 ML SDV IV ONE; +KETAMINE HCL* 50 MG/ML 10 ML VIAL ONE; +Lidocaine 2% PF * 5 ML VIAL ONE; -Morphine INJ* 2 MG/ML 1 ML CARPUJECT IV PRN; +Ondansetron INJ* 2 MG/ML VIAL IV PRN; -Ondansetron INJ* 2 MG/ML VIAL ONE; -PROCHLORPERAZINE INJ 5 MG/ML 2 ML VIAL IV PRN; +Propofol* 10 MG/ML 20 ML BTL IV PUSH ONE; +Propofol* 500 MG/50 ML BTL ONE; -Scopolamine 1.5 mg* PATCH TRANSDERM PRN; +cefTRIAXone(*) 2 GM ADDV.VIAL IVPB ONE; -oxyCODONE/Acetamin 5/325 MG* TAB PO PRN
[2018-03-30 08:53] VITALS: BP 166/74
--- NOTE | 2018-03-30 09:46 | RAD ---
CPT II Codes: G9500 Indication: Stent exchange Fluoroscopic services provided for referring physician. 8 seconds of fluoroscopy time was used. 8 spot images demonstrates exchange of a left ureteral stent in its hydronephrotic left kidney. There is a hydronephrotic right kidney as well. IMPRESSION: Bilateral stent exchange.
--- NOTE | 2018-03-30 11:58 | OP ---
CC: Dr. Amando Stein; Dr. Art Oliva * DATE OF OPERATION: 03/30/18 - [facility] DATE OF : 43 SURGEON: Isidro Cevallos MD ANESTHESIOLOGIST: Dr. Washington. ANESTHESIA: Intravenous sedation. PRE-OP DIAGNOSES: 1. Bilateral hydronephrosis. 2. Advanced prostate cancer. POST-OP DIAGNOSES: 1. Bilateral hydronephrosis. 2. Advanced prostate cancer. OPERATIVE PROCEDURE: Cystoscopy, bilateral retrogrades, bilateral ureteral stent change. INDICATIONS: Landon Montilla is a 72-year-old gentleman with metastatic prostate cancer and bilateral hydronephrosis secondary to ureteral strictures status post radiation. COMPLICATIONS: None. STENTS USED: 8.5-Brazilian 28-cm silicone stent, right and left ureter. DESCRIPTION OF PROCEDURE: After induction of intravenous sedation, the patient was placed in dorsal lithotomy position. Sequential compression devices were in place and functioning. The previously placed Burgess had been removed. Cystoscopy was performed. The bladder was extensively distorted secondary to prior surgical procedures and to chronic Burgess catheter. There was a lot of cloudy sediment in the bladder making visibility fairly poor. The previously placed stents were both removed intact. Next, a left retrograde pyelogram was carried out, left hydronephrosis was noted , and a new 8.5-Brazilian 28-cm silicone stent was introduced. Next, attention was directed to the right side, once again, right retrograde pyelogram was carried out and a new 8.5-Brazilian 28-cm silicone stent was introduced without difficulty. An 18-Brazilian Burgess was placed for bladder drainage. The patient tolerated the procedure satisfactorily and was transferred back to the recovery area in stable condition. [id number]/[facility] #: [id number] [facility]
== END | disposition home or self-care (01) ==
LOC: OR 06:10
PROVIDERS: ATTEND Urology
DX: C61 Malignant neoplasm of prostate (principal); N13.30 Unspecified hydronephrosis; I48.91 Unspecified atrial fibrillation; E11.9 Type 2 diabetes mellitus without complications; Z79.4 Long term (current) use of insulin; Z79.01 Long term (current) use of anticoagulants
CPT/HCPCS: 74420; C1876; J0696; J2704

== ENCOUNTER 2018-05-22 07:21 | Emergency (ER) | payer MEDICARE ==
--- NOTE | 2018-05-22 07:37 | ED ---
Adult Trauma - HPI Summary HPI Summary: Patient is a 72-year-old male with history of A. fib, CKD, prostate cancer and partial seizures presenting to the ED after a fall this morning. He states he fell directly onto his face as well as his left side. He denies any hip pain and was able to stand up and ambulate immediately following the injury. He endorses pain to his posterior cervical spine, right wrist, bilateral chest wall as well as abdominal pain. Denies any bruising. He doesn't was an abrasion to the bridge of the nose. Currently on blood thinners for his atrial fibrillation. Denies hitting his head or LOC. Denies any pain to the face. Denies any visual changes. Denies any confusion other than baseline. and daughter are at bedside. - History of Current Complaint Chief Complaint: EDTraumaMultiple Stated Complaint: FALL/FACIAL INJURY/WRIST INJURY Time Seen by Provider: 05/22/18 07:24 Hx Obtained From: Patient Mechanism of Injury: Fall Ambulatory at the Scene: Yes Loss of Consciousness: no loss of consciousness Force: Low Restraints: Lap/Shoulder Onset/Duration: Started Hours Ago Onset of Pain: Minutes Onset Severity: Moderate Current Severity: Moderate Pain Intensity: 8 Pain Scale Used: 0-10 Numeric Location: Head, Neck, Chest, Abdomen/Pelvis, Extremities Alleviating Factor(s): Nothing Associated Signs & Symptoms: Positive: Negative - Additional Pertinent History Primary Care Physician: [id number] - Allergy/Home Medications Allergies/Adverse Reactions: Allergies Allergy/AdvReac Type Severity Reaction Status Date / Time codeine Allergy tongue Verified 05/22/18 07:26 swells hydrochlorothiazide Allergy increased Verified 05/22/18 07:26 [From Zestoretic] bun/ cr indapamide Allergy hypotension Verified 05/22/18 07:26 lisinopril Allergy Rash Verified 05/22/18 07:26 PMH/Surg Hx/FS Hx/Imm Hx Previously Healthy: No - prostate CA, a fib Endocrine/Hematology History: Reports: Hx Anticoagulant Therapy - warfarin, Hx Diabetes - Insulin, Hx Anemia - history of per Denies: Hx Sickle Cell Disease Cardiovascular History: Reports: Hx Coronary Artery Disease - mild pepe carotid plaque, Hx Hypertension Denies: Hx Pacemaker/ICD, Other Cardiovascular Problems/Disorders Respiratory History: Reports: Hx Sleep Apnea Denies: Other Respiratory Problems/Disorders GI History: Reports: Hx Gastroesophageal Reflux Disease, Hx Irritable Bowel, Other GI Disorders - occasional indigestion Denies: Hx Jaundice History: Reports: Hx Kidney Infection, Hx Kidney Stones, Hx Renal Disease, Other Problems/Disorders - INDWELLING CATHETER, STENT RIGHT & LEFT URETER, HX OF PROSTATE CANCER Musculoskeletal History: Reports: Hx Arthritis - generalized per pts , Hx Back Problems - herniated discs/sx Denies: Other Musculoskeletal History Sensory History: Reports: Hx Cataracts - pepe, Hx Contacts or Glasses - Glasses Denies: Hx Hearing Aid - left ear has decreased hearing Opthamlomology History: Reports: Hx Cataracts - pepe, Hx Contacts or Glasses - Glasses Neurological History: Reports: Hx Seizures - on keppra, last surgery about 1 month ago, Other Neuro Impairments/Disorders - brain cancer, Denies: Hx Headaches Psychiatric History: Reports: Hx Depression Denies: Hx Panic Disorder - Cancer History Cancer Type, Location and Year: BRAIN Hx Chemotherapy: Yes - on lupron - Surgical History Surgery Procedure, Year, and Place: [id number] MULTIPLE BILATERAL RETROGRADE WITH CATHETER AND BILATERL URETERAL STENT EXCHANGES, BALLOON DILATION, [facility] [place] BILATERAL CATARACT EXTRACTION WITH IOL IMPLANTS, [facility] [place] 2012 C7-T1 ACDF AND PLATING, [facility] [place] 2016 DECOMPRESSION LAMINECTOMY L3-4, 4-5, [facility] [place]. 10/2017 RIGHT TOTAL HIP. 12/2017 Right Pareital Craniotomy for brain tumor. Hx Anesthesia Reactions: No - Immunization History Hx Pertussis Vaccination: No Immunizations Up to Date: Yes Infectious Disease History: No Infectious Disease History: Denies: Traveled Outside the [place] in Last 30 Days - Family History Known Family History: Positive: Diabetes - Mother. - Social History Occupation: Unemployed Lives: With Family Alcohol Use: None Hx Substance Use: No Substance Use Type: Reports: None Hx Tobacco Use: Yes - not currently Smoking Status (MU): Former Smoker Type: Cigarettes Amount Used/How Often: 2-3 PPD 30 years Have You Smoked in the Last Year: No Review of Systems Negative: Fever, Chills, Fatigue, Skin Diaphoresis Negative: Epistaxis, Dental Pain Negative: Palpitations, Chest Pain Negative: Shortness Of Breath, Cough Genitourinary: Negative Positive: no symptoms reported, see HPI Positive: Arthralgia Positive: Other - abrasion to the nose Neurological: Negative All Other Systems Reviewed And Are Negative: Yes Physical Exam Triage Information Reviewed: Yes Vital Signs On Initial Exam: Initial Vitals Temp Pulse Resp BP Pulse Ox 97.3 F 86 18 140/55 98 05/22/18 07:22 05/22/18 07:22 05/22/18 07:22 05/22/18 07:22 05/22/18 07:22 Appearance: Positive: Signs of Trauma - abrasion to the bridge of the nose Skin: Positive: Skin Color Reflects Adequate Perfusion Head/Face: Positive: Normal Head/Face Inspection Eyes: Positive: EOMI, FANNIE, Conjunctiva Clear Neck: Positive: Supple, No Lymphadenopathy Respiratory/Lung Sounds: Positive: Breath Sounds Present Cardiovascular: Positive: RRR. Negative: Leg Edema Left, Leg Edema Right Musculoskeletal: Positive: Pain @ - right wrist with flexion and extension without deformity, pain to the bilateral ribs and chest wall, pain to the posterior cervical spine Neurological: Positive: Sensory/Motor Intact, Alert, Oriented to Person Place, Time, Normal Gait, Speech Normal Psychiatric: Positive: Affect/Mood Appropriate Diagnostics - Vital Signs Vital Signs Temp Pulse Resp BP Pulse Ox 05/22/18 07:22 97.3 F 86 18 140/55 98 - Laboratory Lab Statement: Any lab studies that have been ordered have been reviewed, and results considered in the medical decision making process. Adult Trauma Course/Dx - Course Course Of Treatment: During the course treatment, the patient is evaluated for multiple trauma sustained after a fall this morning. On physical examination, there is no ecchymosis noted. There is an abrasion to the bridge of the nose without associated swelling or bruising. There is no cephalhematoma. No hemotympanum raccoons sign or Torres sign. No ecchymosis to the chest or abdomen wall. He is endorsing pain to the bilateral chest wall sides over the rib cage, as well as right-sided lateral abdominal pain. Denies any pain to the hips. Denies any back pain, there is no back pain on palpation. Log rolled without discomfort. Patient was ambulatory immediately following the fall. Patient has history of partial focal seizures with grand mal seizures. He states this was not a seizure and recalls the event, does not immediately following. He denies any dizziness or unsteadiness with gait just prior to the accident. He is unsure if this is a mechanical fall however. CT maxillofacial , CT brain, CT cervical spine, CT chest, CT abdomen and pelvis as well as right wrist obtained. All WNL with no acute findings. Other findings consistent with metastatic disease progression with no new interval changes. Patient is feeling improved s/p tylenol and discharged home with follow up with PCP. - Diagnoses Differential Diagnosis/HQI/PQRI: Positive: Sprain, Strain Provider Diagnoses: Fall Discharge - Sign-Out/Discharge Documenting (check all that apply): Patient Departure - Discharge Plan Condition: Stable Disposition: HOME Referrals: Amando Stein MD [Primary Care Provider] - Additional Instructions: Please follow up with your PCP early next week Rest today Tylenol as needed for discomfort No fractures or other injuries are found on your images today However, if you develop worsening or continuing pain - return to the ED - Billing Disposition and Condition Condition: STABLE Disposition: Home
[2018-05-22] MEDS ORDERED: Acetaminophen TAB* 325 MG PO ONE (07:52)
[2018-05-22 09:50] VITALS: BP 126/80
== END 2018-05-22 09:57 | disposition home or self-care (01) ==
LOC: ED 07:21
DX: S00.31XA Abrasion of nose, initial encounter (principal); W19.XXXA Unspecified fall, initial encounter; Y92.9 Unspecified place or not applicable; M85.831 Other specified disorders of bone density and structure, right forearm; I73.9 Peripheral vascular disease, unspecified; M25.531 Pain in right wrist; R07.81 Pleurodynia; R07.89 Other chest pain; M54.2 Cervicalgia; I48.91 Unspecified atrial fibrillation; E11.9 Type 2 diabetes mellitus without complications; Z79.4 Long term (current) use of insulin; Z79.01 Long term (current) use of anticoagulants; R56.9 Unspecified convulsions; Z85.46 Personal history of malignant neoplasm of prostate; Z96.641 Presence of right artificial hip joint; Z88.5 Allergy status to narcotic agent; Z88.8 Allergy status to other drugs, medicaments and biological substances; Z87.891 Personal history of nicotine dependence
CPT/HCPCS: 70450; 70486; 71250; 72125; 74176; 99283; A9270-GY